=== PATIENT | female | born 1980 | race Caucasian/White ===

== ENCOUNTER 2023-05-10 13:05 | Emergency (ER) | payer MEDICARE, MEDICAID, SELFPAY ==
[2023-05-10 13:41] VITALS: BP 144/72; PULSE 83; RESP 20; TEMP 37.1; O2SAT 98; BMI 33.6
[2023-05-10] MEDS: BACITRACIN OINTMENT 28.4 GM TUBE 1 APPLIC TOPICAL (14:14)
[2023-05-10] MEDS: ADACEL DIPH,PERTUSS(ACELL),TET VAC/PF 0.5 ML ADULT SYRINGE IM (14:15)
--- NOTE | 2023-05-10 14:21 | ED.ANIMALBI1 ---
HPI - Animal Bite General Chief Complaint: Animal Bite Stated Complaint: BIT BY DOG IN 2 PLACES Time Seen by Provider: 05/10/23 13:50 Source: patient Source comment: bit by dog twice- mom with patient Mode of arrival: walk-in Limitations: no limitations History of Present Illness HPI narrative: patient is a 42-year-old female presents the emergency department accompanied by her mother for the evaluation of dog bites to the left knee and right buttock. She states a family friend's Husky mix bit her. she was wearing pants to both areas when the dog bit her. Unknown last tetanus. Bleeding well controlled at this time. No other associated injuries. Related Data Previous Rx's Medication Instructions Recorded ciprofloxacin HCl 500 mg tablet 500 mg PO BID #20 tabs 05/10/23 (Cipro) clindamycin HCl 150 mg capsule 300 mg PO Q6H 10 days #80 caps 05/10/23 ketorolac 10 mg tablet 10 mg PO TID PRN pain #10 tabs 05/10/23 mupirocin 2 % topical ointment 1 applic topical BID #15 grams 05/10/23 ondansetron 4 mg disintegrating 4 mg PO Q6H PRN nausea and 05/10/23 tablet vomiting #12 tabs Allergies Allergy/AdvReac Type Severity Reaction Status Date / Time divalproex sodium Allergy Severe Chest Pain Verified 05/10/23 13:52 [From Depakote] lamotrigine [From Lamictal] Allergy Severe Chest Pain Verified 05/10/23 13:52 Opioids - Morphine Analogues Allergy Severe Chest Pain Verified 05/10/23 13:52 oxcarbazepine Allergy Severe Chest Pain Verified 05/10/23 13:52 [From Trileptal] Penicillins Allergy Mild Hives Verified 05/10/23 13:52 Review of Systems ROS Constitutional Denies: fever or chills Cardiovascular Denies: chest pain Respiratory Denies: shortness of breath Gastrointestinal Denies: nausea or vomiting Integumentary/Breast Denies: rash Neurological Denies: headache Endocrine Denies: excessive urination Hematologic/Lymphatic Denies: easy bruising Allergic/Immunologic Denies: hives PFSH PFSH Social History Smoking status: Former smoker Exam Narrative Exam Narrative: Gen.: Awake, alert, in no distress Head: Normocephalic, atraumatic ENT: Moist mucous membranes Respiratory: No respiratory distress Extremities: Moves extremities equally Psych: Normal mood and affect Neuro: No focal neuro deficit Skin: Warm, dry; multiple superficial abrasions to the right buttock consistent with a dog bite and a 5 cm long slightly deeper abrasion to the medial right buttock, no subcutaneous tissue exposure and the laceration does not pull apart. posterior left knee with multiple superficial abrasions and a 1.5 cm slightly deeper laceration that is able to be pulled apart. No deep subcutaneous tissue exposure. No active bleeding. Constitutional Vital Signs, click to edit/add: Last Vital Signs Temp 98.8 F 05/10/23 13:41 Pulse 83 05/10/23 13:41 Resp 20 05/10/23 13:41 BP 144/72 H 05/10/23 13:41 Pulse Ox 98 05/10/23 13:41 O2 Del Method Room Air 05/10/23 13:41 Course Vital Signs Vital signs: Vital Signs Temperature 98.8 F 05/10/23 13:41 Pulse Rate 83 05/10/23 13:41 Respiratory Rate 20 05/10/23 13:41 Blood Pressure 144/72 H 05/10/23 13:41 Pulse Oximetry 98 05/10/23 13:41 Oxygen Delivery Method Room Air 05/10/23 13:41 Temperature 98.8 F 05/10/23 13:41 Pulse Rate 83 05/10/23 13:41 Respiratory Rate 20 05/10/23 13:41 Blood Pressure 144/72 H 05/10/23 13:41 Pulse Oximetry 98 05/10/23 13:41 Oxygen Delivery Method Room Air 05/10/23 13:41 MDM - Animal Bite MDM Narrative Medical decision making narrative: abrasions to the right buttock were cleansed and dressed with bacitracin. No indication for suture repair to the right buttock. The longer laceration to the left posterior knee was repaired with two sutures, please see procedure note for details. Patient was placed on Cipro and clindamycin as she is ALLERGIC to penicillin. Toradol given for pain if she states she cannot take any opioids. Tetanus is updated in the Emergency Room. She was given additional prescription for topical antibiotic ointment if she runs out of the bacitracin tube. Return to the Emergency Room if symptoms change or worsen. Sutures removed with PCP in 7-10 days. Discussed rabies recommendations for dog bites, patient and her mother believes that the dog is fully immunized and declined rabies injections, patient and her mother were made aware that it is not routinely recommended to vaccinate for rabies exposure for dog bite, they're in agreement with this treatment plan. Laceration repair: Done under sterile conditions. The use of Shur-Clens prep the area. Local injection with lidocaine 1% was used, approximately 3 cc. The wound was irrigated copiously with normal saline. The wound was explored there was no evidence of foreign material. The laceration was approximated with 4-0 nylon. 2 simple interrupted sutures were placed. Patient tolerated the procedure well. The patient was neurovascularly intact post. the patient had bacitracin applied to the laceration and a dry sterile dressing was place. The patient will need to follow-up in the next 7-10 days for removal Medical Records Attestation: I reviewed the patient's medical records. Discharge Plan Discharge Chief Complaint: Animal Bite Clinical Impression: Bite by animal, Dog bite Patient Disposition: Home, Self-Care Time of Disposition Decision: 14:51 Condition: Good Prescriptions / Home Meds: New clindamycin HCl 150 mg capsule 300 mg PO Q6H 10 Days Qty: 80 0RF ciprofloxacin HCl [Cipro] 500 mg tablet 500 mg PO BID Qty: 20 0RF ketorolac 10 mg tablet 10 mg PO TID PRN (Reason: pain) Qty: 10 0RF ondansetron 4 mg tablet,disintegrating 4 mg PO Q6H PRN (Reason: nausea and vomiting) Qty: 12 0RF mupirocin 2 % ointment 1 applic topical BID Qty: 15 0RF Instructions: Animal Bite (ED) Additional Instructions: Sutures removed in 7-10 days with PCP Stand Alone Forms: Portal Instructions Referrals: George Cortez MD [Primary Care Provider] - 1 week
--- NOTE | 2023-05-10 14:27 | PC.NURSE ---
Bog bite to right lower buttock and to back of left knee. Pt states it only got her the 2 times. Pt states the dog as far as they know is UTD on vaccines and did not appear sick.
== END 2023-05-10 15:05 | disposition home or self-care (01) ==
PROVIDERS: Emergency Provider Emergency Medicine; PCP Family Medicine
DX: S81.052A Open bite, left knee, initial encounter (principal); S30.870A Other superficial bite of lower back and pelvis, initial encounter; W54.0XXA Bitten by dog, initial encounter; Z87.891 Personal history of nicotine dependence
CPT/HCPCS: 12001; 90471; 90715; 99283

== ENCOUNTER 2023-07-10 09:04 | Outpatient (OUT) | payer MEDICARE, MEDICAID, SELFPAY ==
[2023-07-10 11:32] LABS: Creatinine Urine Random 62.92 mg/dL (20.00-300.00); Microalbumin Urine Random 20.2 mg/dL (<=30.0)
[2023-07-10 11:59] LABS: Albumin Level 3.7 g/dL (3.4-5.0); Anion Gap 9.7; Calcium 8.9 mg/dL (8.5-10.1); Carbon Dioxide 29.4 mmol/L (21.0-32.0); Chloride 97 mmol/L (98-107); Chol HDL Ratio 5.7; Cholesterol 159 mg/dL (<=200); Estimated GFR (African America >60 (>=60); Estimated GFR (Non-African Ame >60 (>=60); Free T3 2.43 pg/mL (2.18-3.98); Glucose 277 mg/dL (74-106); HDL Cholesterol 28 mg/dL (40-60); Phosphorus 3.2 mg/dL (2.6-4.7); Potassium 4.1 mmol/L (3.5-5.1); Sodium 132 mmol/L (136-145); Thyroid Stimulating Hormone 3.438 uIU/mL (0.358-3.740); Triglycerides 226 mg/dL (<=150); VLDL CHOLESTEROL 45.2 mg/dL
[2023-07-10 12:57] LABS: Free T4 1.09 ng/dL (0.76-1.46)
[2023-07-11 11:10] LABS: C-Peptide, Serum <0.1 ng/mL (1.1-4.4)
[2023-07-11 14:09] LABS: ACTH, Plasma 31.7 pg/mL (7.2-63.3)
== END 2023-07-10 09:05 | disposition home or self-care (01) ==
PROVIDERS: PCP Family Medicine; Visit Provider Internal Medicine
DX: E10.39 Type 1 diabetes mellitus with other diabetic ophthalmic complication (principal); E55.9 Vitamin D deficiency, unspecified; R80.9 Proteinuria, unspecified; Z79.4 Long term (current) use of insulin; E03.9 Hypothyroidism, unspecified
CPT/HCPCS: 36415; 80061; 80069; 82024; 82043; 82306; 82533; 82570; 84439; 84443; 84481; 84681

== ENCOUNTER 2023-11-02 09:38 | Outpatient (OUT) | payer MEDICARE, MEDICAID, SELFPAY ==
--- NOTE | 2023-11-02 09:53 | XR_ITS ---
The [address] [address] Patient Name: YANICK JEFFREY MRN: [id number] date: 1980 Sex: F Assigned Patient Location: [facility] Current Patient Location: Accession/Order Number: [id number] Exam Date: 11/02/2023 10:04 Report Date: 11/03/2023 07:45 At the request of: LORENZO CARLSON Procedure: XR foot RT min 3V PROCEDURE: XR foot RT min 3V HISTORY: Foot pain M79.673 following injury COMPARISON: None. FINDINGS: BONES:Oblique, nondisplaced fracture through the second proximal phalanx extending from medial corner of distal metaphysis 2 lateral margin of mid diaphysis. No appreciable intra-articular extension. SOFT TISSUES:Mild soft tissue swelling of second toe. EFFUSION:None visible. OTHER: Negative. XR/XR foot RT min 3V IMPRESSION: 1. Acute, nondisplaced fracture of second proximal phalanx of right foot. Electronically authenticated by: FLORA DERAS Date: 11/03/2023 07:45
--- OUTSIDE RECORDS SUMMARY | 2023-11-02 09:54 | XMS_ITS | CCD ---
Author Name Unknown Address [address] [facility] [address] [place] [address] Organization [facility] Care Team Providers Care Padded Products Finisher Name Role Phone TONYA CENTENO Attending Unavailable TONYA CENTENO Admitting Unavailable UNKNOWN, PHYSICIAN Referring Unavailable UNKNOWN, PHYSICIAN Primary Care Unavailable HOY ., DR VENTURA Admitting Unavailable HOY ., DR VENTURA Attending Unavailable HOY ., DR VENTURA Consulting Unavailable HOY ., DR VENTURA Primary Care Unavailable HOY ., DR VENTURA Admitting Unavailable HOY ., DR VENTURA Attending Unavailable HOY ., DR VENTURA Consulting Unavailable HOY ., DR VENTURA Primary Care Unavailable HOY ., DR VENTURA Admitting Unavailable HOY ., DR VENTURA Primary Care Unavailable HOY ., DR VENTURA Attending Unavailable HOY ., DR VENTURA Consulting [facility]available [facility] DR FLORA Davidson Consulting Unavailable HOY ., DR VENTURA Admitting Unavailable HOY ., DR VENTURA Primary Care Unavailable HOY ., DR VENTURA Attending Unavailable HOY ., DR VENTURA Consulting Unavailable [place], DR EDNA Carlson Consulting Unavailable HOY ., DR VENTURA Primary Care Unavailable HOY ., DR VENTURA Attending Unavailable HOY ., DR VENTURA Admitting Unavailable HOY ., DR VENTURA Consulting Unavailable HOY ., DR VENTURA Primary Care Unavailable HOY ., DR VENTURA Attending Unavailable HOY ., DR VENTURA Admitting Unavailable HOY ., DR VENTURA Consulting Unavailable HOY ., DR VENTURA Primary Care Unavailable CARLOS, AHMAD Admitting Unavailable CARLOS, AHMAD Attending Unavailable HOY ., DR VENTURA Consulting Unavailable CARLOS, AHVINICIUS Consulting Unavailable HOY ., DR VENTURA Primary Care Unavailable CARLOS, AHMAD Admitting Unavailable CARLOS, AHMAD Attending Unavailable CRALOS, AHMAD Consulting Unavailable HOY ., DR VENTURA Primary Care Unavailable ALDO ., DR VENTURA Attending Unavailable ALDO ., DR VENTURA Admitting Unavailable ALDO ., DR VENTURA Consulting Unavailable [place], DR EDNA Carlson Consulting Unavailable Castillo Choudhary Attending Unavailab Castillo Matt Admitting Unavailab Lorenzo Benito Primary Care Unavailable Allergies Allergy Classification Reported Allergen(s) Allergy Type Date of Onset Reaction(s) Facility (1 source) Acetaminophen / HYDROcodone Drug Allergy 07-14-2013 [facility] (1 source) Acetaminophen / HYDROcodone Drug Allergy 11-02-2015 [facility] (1 source) Adhesive agent Drug allergy (disorder) 07-14-2013 [facility] (1 source) Amino Acids Drug Allergy 10-26-2015 [facility] (1 source) lamoTRIgine Drug Allergy 07-14-2013 [facility] (1 source) Morphine Drug Allergy 07-14-2013 [facility] (1 source) OXcarbazepine Drug Allergy 07-14-2013 [facility] (1 source) Penicillins Drug allergy (disorder) 07-14-2013 [facility] (1 source) Valproate Drug Allergy 07-14-2013 [facility] Problems Active Problems Problem Classification Problem Date Documented Da te Episodic/Chronic Congestive heart failure; nonhypertensive (1 source) Unspecified diastolic (congestive) heart failure; Translations: [UNSPECIFIED DIASTOLIC HEART FAILURE] Onset: 10-09-2022 Chronic Diabetes mellitus with complications (5 sources) 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; Translations: [TYP 1 DM W/DIABETIC OPHTH COMP] Onset: 03-30-2022 Chronic Diseases of mouth; excluding dental (4 sources) Mucocele of salivary gland; Translations: [MUCOCELE OF SALIVARY GLAND] Onset: 01-03-2023 Episodic Essential hypertension (5 sources) Essential (primary) hypertension; Translations: [ESSENTIAL PRIMARY HYPERTENSION] Onset: 04-03-2022 Chronic Hypertension with complications and secondary hypertension (5 sources) Hypertensive heart disease with heart failure; Translations: [HTN HEART DISEASE W/HEART FAIL] Onset: 03-20-2022 Chronic Nutritional deficiencies (1 source) Vitamin D deficiency, unspecified; Translations: [VITAMIN D DEFICIENCY UNSPECIFIED] Onset: 10-09-2022 Chronic Spondylosis; intervertebral disc disorders; other back problems (1 source) Radiculopathy, cervical region; Translations: [RADICULOPATHY CERVICAL REGION] Onset: 01-07-2023 Episodic Past or Other Problems Problem Classification Problem Date Documented Da te Episodic/Chronic Deficiency and other anemia (1 source) Anemia, unspecified; Translations: [ANEMIA UNSPECIFIED] Onset: 03-20-2022 Episodic Other aftercare (1 source) 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; Translations: [RESIDENTIAL CURRENT USE OF INSULIN] Onset: 10-09-2022 Episodic Other lower respiratory disease (5 sources) Other forms of dyspnea; Translations: [OTHER FORMS OF DYSPNEA] Onset: 04-03-2022 Episodic Residual codes; unclassified (4 sources) Edema, unspecified; Translations: [EDEMA UNSPECIFIED] Onset: 03-30-2022 Episodic Results Test Name Value Interpretation Reference Range Facility CREATININEon 01-22-2023 Creatinine [Mass/Vol] 0.98 mg/dL Normal 0.55-1.02 [facility] Comment on above: Performed By: #### C NILSON #### [facility] [address] [place] [address] Dr. Keeley Hoskins EGFR-AF SRI LANKAN >60 Normal >=60 [facility] Comment on above: Performed By: #### C NILSON #### [facility] [address] [place] [address] Dr. Keeley Hoskins EGFR-NON AF SRI LANKAN >60 Normal >=60 [facility] Comment on above: Performed By: #### C NILSON #### [facility] [address] [place] [address] NECK ST W CONon [address] W CON EXAMINATION: CT NECK ST W CON HISTORY: Mass of neck , left neck mass COMPARISON: No relevant comparison available. TECHNIQUE: Axial, Coronal, and Sagittal CT images created with IV contrast. Dose reduction techniques were achieved by using automated exposure control and/or adjustment of mA and/or kV according to patient size and/or use of iterative reconstruction technique. FINDINGS: NASOPHARYNX: No asymmetry of the fossae of Rosenmuller and torus tubarius. ORAL CAVITY: No visible mass. OROPHARYNX: No asymmetry of the facial and lingual tonsils. HYPOPHARYNX: No mass or other visible lesion. LARYNX: No mass or asymmetry of the vocal cords. SINUSES: No significant fluid or mucosal thickening. NECK GLADS: No visible abnormality of the parotid, submandibular, and thyroid glands. LYMPH NODES: No pathological-appearin g or enlarged lymph nodes. Scattered normal-sized lymph nodes VASCULATURE: No suspicious abnormality. BONES: No significant osseous lesions. Moderate degenerative spondylosis C5-C6 OTHER: No additional imaging findings. IMPRESSION: No focal left neck mass Electronically authenticated by: EDNA GOMEZ Date: 2023-01-22 11:08 Normal [facility] MRI CSPINE WO CONon 01-23-20 MRI CSPINE WO CON EXAMINATION: MRI CSPINE WO CON HISTORY: Degeneration of cervical intervertebral disc , chronic neck pain COMPARISON: No relevant comparison available. TECHNIQUE: A variety of imaging planes and parameters were utilized for visualization of suspected pathology. FINDINGS: CRANIOCERVICAL AREA: Normal foramen magnum with no Chiari malformation. PARASPINAL AREA: Normal with no visible mass. BONES: Normal alignment with no acute fracture or spondylolisthesis. No bone edema. CORD: Normal caliber, contour, and signal intensity. CERVICAL DISC LEVELS: C2-C3: No significant disc/facet abnormality, spinal stenosis, or foraminal stenosis. C3-C4: No significant disc/facet abnormality, spinal stenosis, or foraminal stenosis. C4-C5: No significant disc/facet abnormality, spinal stenosis, or foraminal stenosis. C5-C6: Disc desiccation. Mild posterior spondylosis. Right base disc protrusion with left foraminal disc herniation of the protrusion type extending posteriorly up to 4.5 mm best seen on sagittal image 5, axial image 20. Moderate left foraminal stenosis C6-C7: No significant disc/facet abnormality, spinal stenosis, or foraminal stenosis. C7-T1:. No significant disc/facet abnormality, spinal stenosis, or foraminal stenosis. IMPRESSION: Moderate degenerative changes at C5-C6 with left foraminal disc herniation resulting in moderate left foraminal stenosis Electronically authenticated by: EDNA GOMEZ Date: 2023-01-22 11:04 Normal [facility] CT FACIAL BONES WO CONon CT FACIAL BONES WO CON EXAMINATION: CT FACIAL BONES WO CON HISTORY: Mucocele of salivary gland ; left jaw pain COMPARISON: No relevant comparison available. TECHNIQUE: Axial, Coronal, and Sagittal CT images created without IV contrast. Dose reduction techniques were achieved by using automated exposure control and/or adjustment of mA and/or kV according to patient size and/or use of iterative reconstruction technique. FINDINGS: FACIAL BONES: No bony lesion or fracture. SINUSES: No visible mass, significant fluid or mucosal thickening. NASAL FOSSA: No mass, fracture, or significant septal deviation. SKULL BASE: No mass or bone destruction. ORBITS: No visible mass, hematoma, edema or fracture. SALIVARY GLANDS: No mass. Unremarkable parotid and submandibular glands. OTHER: No lymphadenopathy. Unremarkable nasopharynx, oropharynx, and oral cavity. IMPRESSION: 1. No appreciable abnormality. 2. If there remains concern for salivary gland abnormality consider CT neck soft tissues with IV contrast. Electronically authenticated by: FLORA DERAS Date: 2023-01-04 07:25 Normal [facility] XR CSPINE MIN 4 VIEWSon 12-10 XR CSPINE MIN 4 VIEWS EXAMINATION: XR CSPINE MIN 4 VIEWS HISTORY: Cervical radiculopathy COMPARISON: No relevant comparison available. FINDINGS: BONES: Straightening of the normal lordotic curvature. No fracture, spondylolisthesis, or bone lesion. Uncovertebral joint spurring resulting in bone encroachment on the left C5-6 neural foramen. DISC SPACES: Mild narrowing C5-6. PARASPINOUS: Negative. No paraspinous abnormality is seen. OTHER: Negative. IMPRESSION: 1. Mild degenerative changes likely causing central canal and foramen narrowing predominantly at C5-6. Consider MRI cervical spine for further evaluation. Electronically authenticated by: FLORA DERAS Date: 2023-01-04 07:12 Normal [facility] C-PEPTIDE, SERUMon C-Peptide, Serum <0.1 Critically low 1.1-4.4 [facility] Comment on above: Result Comment: C-Pe ptide reference interval is for fasting patients. Performed By: #### C PEPT #### [facility] [address] [place] [address] Dr. Keeley Hoskins BNPon 10-06-2022 Natriuretic peptide B (Bld) [Mass/Vol] 20.0 pg/mL Normal <=450.0 [facility] Comment on above: Performed By: #### R ENAL, LIPID #### [facility] [address] [place], [place] [address] Dr. Keeley Hoskins LIPID PROFILEon 10-06-2022 CHOL-HDL RATIO NORM SEE BELOW Normal [facility] Comment on above: Result Comment: 3.3 - 4.4 LOW RISK 4.4 - 7.1 AVERAGE RISK 7.1 - 11.0 MODERATE RISK >11.0 HIGH RISK Performed By: #### R ENAL, LIPID #### [facility] [address] [place], [place] [address] Dr. Keeley Hoskins Cholesterol [Mass/Vol] 156 mg/dL Normal <=200 [facility] Comment on above: Performed By: #### R ENAL, LIPID #### [facility] [address] [place] [address] [address] Keeley Hoskins Cholesterol in HDL [Mass/Vol] 32 mg/dL Critically low 40-60 [facility] Comment on above: Performed By: #### R ENAL, LIPID #### [facility] [address] [place] [address] [address] Keeley Hoskins Cholesterol in LDL [Mass/Vol] 71.8 mg/dL Normal [facility] Comment on above: Performed By: #### R ENAL, LIPID #### [facility] [address] [place], [place] [address] Dr. Keeley Hoskins Cholesterol.total/C holesterol in HDL [Mass ratio] 4.9 {ratio} Normal [facility] Comment on above: Performed By: #### R ENAL, LIPID #### [facility] [address] [place], [place] [address] Dr. Keeley Hoskins HDL NORMAL > or = 60 mg/dl - LO W CARDIOVASCULAR RISK <40 mg/dl - HIGH CARDIOVASCULAR RISK Normal [facility] Comment on above: Performed By: #### R ENAL, LIPID #### [facility] [address] [place] [address] [address] Keeley Hoskins LDL CALC NORMAL SEE BELOW Normal [facility] Comment on above: Result Comment: <100 mg/dl OPTIMAL 100 - 129 mg/dl NEAR OR ABOVE OPTIMAL 130 - 159 mg/dl BORDERLINE HIGH 160 - 189 mg/dl HIGH >190 mg/dl VERY HIGH Performed By: #### R ENLISSY, LIPID #### [facility] [address] [place] [address] Dr. Keeley Hoskins Triglyceride [Mass/Vol] 261 mg/dL Critically high <=150 [facility] Comment on above: Performed By: #### R ENLISSY, LIPID #### [facility] [address] [place] [address] Dr. Keeley Hoskins VLDL CALC 52.2 mg/dL Normal [facility] Comment on above: Performed By: #### R ENLISSY, LIPID #### [facility] [address] [place] [address] Dr. Keeley Hoskins MICROALB CREAT RATIO RANDOMo n 10-06-2022 mALB 4.2 mg/L Normal <=30.0 [facility] Comment on above: Performed By: #### M CRR #### [facility] [address] [place] [address] Dr. Keeley Hoskins URINE CREAT <13.00 Critically low 20.00-300.00 [facility] Comment on above: Performed By: #### M CRR #### [facility] [address] [place] [address] Dr. Keeley Hoskins RENAL FUNCTION PANELon 10-06 Albumin [Mass/Vol] 4.0 g/dL Normal 3.4-5.0 [facility] Comment on above: Performed By: #### R ENLISSY, LIPID #### [facility] [address] [place] [address] Dr. Keeley Hoskins Calcium [Mass/Vol] 9.3 mg/dL Normal 8.5-10.1 [facility] Comment on above: Performed By: #### R ENLISSY, LIPID #### [facility] [address] [place] [address] Dr. Keeley Hoskins Chloride [Moles/Vol] 101 mmol/L Normal 98-107 [facility] Comment on above: Performed By: #### R ENAL, LIPID #### [facility] [address] [address] [address] Keelye Hoskins CO2 [Moles/Vol] 28.9 mmol/L Normal 21.0-32.0 [facility] Comment on above: Performed By: #### R ENAL, LIPID #### [facility] [address] [address] [address] Keeley Hoskins Creatinine [Mass/Vol] 0.81 mg/dL Normal 0.55-1.02 [facility] Comment on above: Performed By: #### R ENAL, LIPID #### [facility] [address] [place] [address] [address] Keeley Hoskins EGFR-AF SRI LANKAN >60 Normal >=60 [facility] Comment on above: Performed By: #### R ENAL, LIPID #### [facility] [address] [place] [address] [address] Keeley Hoskins EGFR-NON AF SRI LANKAN >60 Normal >=60 [facility] Comment on above: Performed By: #### R ENAL, LIPID #### [facility] [address] [place] [address] [address] Keeley Hoskins Glucose [Mass/Vol] 123 mg/dL Critically high 74-106 [facility] Comment on above: Performed By: #### R ENAL, LIPID #### [facility] [address] [address] [address] Keeley Hoskins Phosphate [Mass/Vol] 3.9 mg/dL Normal 2.6-4.7 [facility] Comment on above: Performed By: #### R ENAL, LIPID #### [facility] [address] [address] [address] Keeley Hoskins Potassium [Moles/Vol] 4.4 mmol/L Normal 3.5-5.1 [facility] Comment on above: Performed By: #### R ENAL, LIPID #### [facility] [address] [address] [address] Keeley Hoskins Sodium [Moles/Vol] 140 mmol/L Normal 136-145 [facility] Comment on above: Performed By: #### R ENAL, LIPID #### [facility] [address] [place] [address] [address] Keeley Hoskins Urea nitrogen [Mass/Vol] 12.0 mg/dL Normal 7.0-18.0 [facility] Comment on above: Performed By: #### R ENLISSY, LIPID #### [facility] [address] [place] [address] Dr. Keeley Hoskins VITAMIN D 25 OHon 10-06-2022 VIT D 25-OH 37.8 ng/mL Normal [facility] Comment on above: Performed By: #### R ENLISSY, LIPID #### [facility] [address] [address] [address] Keeley Hoskins VIT D RANGES SEE BELOW Normal [facility] Comment on above: Result Comment: <20 ng/mL Vit D deficient 20 - <30 ng/mL Vit D insufficient 30 - 100 ng/mL Vit D sufficient >100 ng/mL Potential Toxicity Performed By: #### R SEGUN, LIPID #### [facility] [address] [place] [address] Dr. Keeley Hoskins NM STRESS/REST MULTIon 04-17 NM STRESS/REST MULTI Patient: SCAR JEFFREY Exam Date: 04/17/2022 : 1980 Gender:F Ordering : DR LORENZO CORTEZ . Admission #: [id number] Family : Order #: [id number] CLICK HERE TO VIEW EXAM RADIOLOGY REPORT PROCEDURE: RADIONUCLIDE IMAGING STRESS/REST MULTI COMPARISON: None. INDICATIONS: Dyspnea on exertion TECHNIQUE: Exam Description: Stress/Rest one day protocol gated SPECT Rest Imagin.4 mCi Tc-99m Cardiolite IV on 04/17/2022 Stress Imaging 33.0 mCi Tc-99m Cardiolite IV on 04/17/2022 Exercise Protocol: Mick Heart Rate (bpm): Rest: 92 Max: 150 PMHR: 85 Blood Pressure: Rest: 174/84 Max: 214/98 Exercise Time: Minutes: 6 Seconds: 02 Stage Reached: Stage: 3 Mets 7.0 Symptoms: Rest and peak stress ECG findings were normal and the exercise portion of the study was abnormal per attending physician Dr. Wooten due to blood pressure. For more details please see separate cardiac stress test report. FINDINGS: QUALITY OF STUDY: PERFUSION DEFECT: LOCATION: Basal anterior. Mid-anterior. Apical inferior. SIZE: Medium (3-4 segments). SEVERITY: Moderate. TYPE: WALL MOTION: Normal. LV SIZE: Normal. 101 mL. TID / TCD: None; 1.1 LVEF: Normal. Calculated EF 59%. SUMMARY: Myocardial perfusion imaging study has ABNORMAL findings. CONCLUSION: 1. Perfusion abnormality in the anterior wall possibly breast attenuation artifact 2. No reversible ischemia 3. Normal exercise test Dictated by: Edna Gomez MD on 04/18/2022 at 11:42 Approved by: Edna Gomez MD on 04/18/2022 at 11:44 Normal [facility] ECHOCARDIO M/2D COMPLETEon 0 03-30-2022 ECHOCARDIO M/2D COMPLETE Patient: SCAR JEFFREY Exam Date: 03/30/2022 : 1980 Gender:F Ordering : DR LORENZO CORTEZ . Admission #: [id number] Family : Order #: [id number] CLICK HERE TO VIEW EXAM ECHOCARDIOGRAM REPORT PROCEDURE: CARDIO PULMONARY ECHOCARDIO M/2D COMP INDICATIONS: Edema, hypertension, diabetes COMPARISON: None. DESCRIPTION: COMPLETE ECHOCARDIOGRAM Real-time transthoracic echocardiography with 2D, M-mode, spectral and color flow Doppler performed. QUALITY: Technical quality was adequate. 65 237# BP 144/72 HR 93 LEFT VENTRICLE: Normal chamber size. Mild concentric left ventricular hypertrophy. LV EF: Normal left ventricular ejection fraction, (>55%). DIASTOLIC: Normal diastolic function. ATRIAL SEPTUM: Visually appears intact. LEFT ATRIUM: Normal chamber size. RIGHT ATRIUM: Normal chamber size. RIGHT VENTRICLE: Normal chamber size. Normal right ventricular systolic function. TRICUSPID VALVE: Normal mobility and thickness. No stenosis with trivial regurgitation. Unable to assess right-sided pressures due to lack of measurable tricuspid regurgitation. MITRAL VALVE: Mildly thickened with normal mobility. No evidence of mitral valve stenosis. Mild mitral annular calcification. No mitral regurgitation. AORTIC VALVE: Normal trileaflet appearance. No visible sclerosis. Normal leaflet mobility. No evidence of aortic valve stenosis. No aortic regurgitation. AORTIC ROOT: Normal diameter and appearance. PULMONIC VALVE: Not well visualized. No stenosis. No regurgitation. PERICARDIUM: No evidence of pericardial effusion. IVC: Collapses with inspirations. IVC is normal in size. CONCLUSION: Global left ventricular systolic function is normal; visually estimated ejection fraction is 55 to 60%. Normal diastolic function. Mild left ventricular hypertrophy. The right ventricle is normal in size and systolic function. No significant valvular abnormalities. Dictated by: Jackie Wooten M.D. on 03/30/2022 at 13:48 Approved by: Jackie Wooten M.D. on 03/30/2022 at 13:50 Normal [facility] LIPID PROFILEon 03-30-2022 CHOL-HDL RATIO NORM SEE BELOW Normal [facility] Comment on above: Result Comment: 3.3 - 4.4 LOW RISK 4.4 - 7.1 AVERAGE RISK 7.1 - 11.0 MODERATE RISK >11.0 HIGH RISK Performed By: #### R SEGUN, LIPID #### [facility] [address] [place] [address] Dr. Keeley Hoskins Cholesterol [Mass/Vol] 140 mg/dL Normal <=200 [facility] Comment on above: Performed By: #### R SEGUN, LIPID #### [facility] [address] [place] [address] [address] Keeley Hoskins Cholesterol in HDL [Mass/Vol] 30 mg/dL Critically low 40-60 [facility] Comment on above: Performed By: #### R ENLISSY, LIPID #### [facility] [address] [place] [address] [address] Keeley Hoskins Cholesterol in LDL [Mass/Vol] 69.2 mg/dL Normal [facility] Comment on above: Performed By: #### R ENLISSY, LIPID #### [facility] [address] [place] [address] [address] Keeley Hoskins Cholesterol.total/C holesterol in HDL [Mass ratio] 4.7 {ratio} Normal [facility] Comment on above: Performed By: #### R ENLISSY, LIPID #### [facility] [address] [place] [address] [address] Keeley Hoskins HDL NORMAL > or = 60 mg/dl - LO W CARDIOVASCULAR RISK <40 mg/dl - HIGH CARDIOVASCULAR RISK Normal [facility] Comment on above: Performed By: #### R ENLISSY, LIPID #### [facility] [address] [place] [address] [address] Keeley Hoskins LDL CALC NORMAL SEE BELOW Normal [facility] Comment on above: Result Comment: <100 mg/dl OPTIMAL 100 - 129 mg/dl NEAR OR ABOVE OPTIMAL 130 - 159 mg/dl BORDERLINE HIGH 160 - 189 mg/dl HIGH >190 mg/dl VERY HIGH Performed By: #### R ENAL, LIPID #### [facility] [address] [place] [address] [address] Keeley Hoskins Triglyceride [Mass/Vol] 204 mg/dL Critically high <=150 [facility] Comment on above: Performed By: #### R ENAL, LIPID #### [facility] [address] [place] [address] [address] Keeley Hoskins VLDL CALC 40.8 mg/dL Normal [facility] Comment on above: Performed By: #### R ENAL, LIPID #### [facility] [address] [place] [address] Dr. Keeley Hoskins MICROALB CREAT RATIO RANDOMo n 03-30-2022 mALB 8.3 mg/L Normal <=30.0 [facility] Comment on above: Performed By: #### M CRR #### [facility] [address] [address] [address] Keeley Hoskins MALB CR RATIO 466.0 mg/g Critically high 0.0-29.9 [facility] Comment on above: Performed By: #### M CRR #### [facility] [address] [place] [address] Dr. Keeley Hoskins MALB CR RATIO RANGE SEE BELOW Normal [facility] Comment on above: Result Comment: NO M ICROALBUMINURIA 0-29 MG/G CLINICAL MICROALBUMINURIA 30-300 MG/G MACROALBUMINURIA >300 MG/G Performed By: #### M CRR #### [facility] [address] [place] [address] Dr. Keeley Hoskins URINE CREAT 17.81 mg/dL Critically low 20.00-300.00 [facility] Comment on above: Performed By: #### M CRR #### [facility] [address] [place] [address] Dr. Keeley Hoskins RENAL FUNCTION PANELon 03-30 Albumin [Mass/Vol] 4.2 g/dL Normal 3.4-5.0 [facility] Comment on above: Performed By: #### R ENAL, LIPID #### [facility] [address] [place] [address] [address] Keeley Hoskins Calcium [Mass/Vol] 9.2 mg/dL Normal 8.5-10.1 [facility] Comment on above: Performed By: #### R ENAL, LIPID #### [facility] [address] [place] [address] [address] Keeley Hoskins Chloride [Moles/Vol] 98 mmol/L Normal 98-107 [facility] Comment on above: Performed By: #### R ENAL, LIPID #### [facility] [address] [place] [address] Dr. Keeley Hoskins CO2 [Moles/Vol] 28.6 mmol/L Normal 21.0-32.0 [facility] Comment on above: Performed By: #### R ENAL, LIPID #### [facility] [address] [place] [address] Dr. Keeley Hoskins Creatinine [Mass/Vol] 1.17 mg/dL Critically high 0.55-1.02 [facility] Comment on above: Performed By: #### R ENAL, LIPID #### [facility] [address] [place] [address] Dr. Keeley Hoskins EGFR-AF SRI LANKAN >60 Normal >=60 The [facility] Comment on above: Performed By: #### R ENAL, LIPID #### [facility] [address] [place] [address] Dr. Keeley Hoskins EGFR-NON AF SRI LANKAN 50 mL/min/1.73m2 Critically low >=60 [facility] Comment on above: Performed By: #### R ENAL, LIPID #### [facility] [address] [place] [address] Dr. Keeley Hoskins Glucose [Mass/Vol] 212 mg/dL Critically high 74-106 [facility] Comment on above: Performed By: #### R ENAL, LIPID #### [facility] [address] [place] [address] Dr. Keeley Hoskins Phosphate [Mass/Vol] 4.0 mg/dL Normal 2.6-4.7 [facility] Comment on above: Performed By: #### R ENAL, LIPID #### [facility] [address] [place] [address] Dr. Keeley Hoskins Potassium [Moles/Vol] 4.1 mmol/L Normal 3.5-5.1 [facility] Comment on above: Performed By: #### R ENAL, LIPID #### [facility] [address] [place] [address] Dr. Keeley Hoskins Sodium [Moles/Vol] 136 mmol/L Normal 136-145 [facility] Comment on above: Performed By: #### R ENAL, LIPID #### [facility] [address] [place] [address] Dr. Keeley Hoskins Urea nitrogen [Mass/Vol] 16.0 mg/dL Normal 7.0-18.0 [facility] Comment on above: Performed By: #### R ENAL, LIPID #### [facility] [address] [place] [address] Dr. Keeley Hoskins VITAMIN D 25 OHon 03-30-2022 VIT D 25-OH 33.8 ng/mL Normal [facility] Comment on above: Performed By: #### V ITAD #### [facility] [address] [place] [address] Dr. Keeley Hoskins VIT D RANGES SEE BELOW Normal [facility] Comment on above: Result Comment: <20 ng/mL Vit D deficient 20 - <30 ng/mL Vit D insufficient 30 - 100 ng/mL Vit D sufficient >100 ng/mL Potential Toxicity Performed By: #### V ITAD #### [facility] [address] [place] [address] Dr. Keeley Hoskins BNPon 03-16-2022 Natriuretic peptide B (Bld) [Mass/Vol] 20.0 pg/mL Normal <=450.0 [facility] Comment on above: Performed By: #### T 7, TSH, CMP, BNP #### [facility] [address] [address] [address] Keeley Hoskins CBC AUTO DIFFon 03-16-2022 BASO # 0.1 103/ul Normal 0.0-0.1 [facility] Comment on above: Performed By: #### R ENAL, LIPID #### [facility] [address] [address] [address] Keeley Hoskins Basophils/100 WBC (Bld) 1.0 % Normal 0.2-2.0 [facility] Comment on above: Performed By: #### R ENAL, LIPID #### [facility] [address] [place] [address] Dr. Keeley Hoskins EO # 0.1 103/ul Normal 0.0-0.7 [facility] Comment on above: Performed By: #### R ENAL, LIPID #### [facility] [address] [place] [address] Dr. Keeley Hoskins Eosinophils/100 WBC (Bld) 1.8 % Normal 0.9-7.0 [facility] Comment on above: Performed By: #### R ENAL, LIPID #### [facility] [address] [place] [address] Dr. Keeley Hoskins Erythrocyte distribution width (RBC) [Ratio] 12.3 % Normal 11.0-15.0 [facility] Comment on above: Performed By: #### R ENAL, LIPID #### [facility] [address] [place] [address] Dr. Keeley Hoskins Hematocrit (Bld) [Volume fraction] 37.3 % Normal 36.0-48.0 [facility] Comment on above: Performed By: #### R ENAL, LIPID #### [facility] [address] [place] [address] Dr. Keeley Hoskins Hemoglobin (Bld) [Mass/Vol] 12.7 g/dL Normal 12.0-16.0 [facility] Comment on above: Performed By: #### R ENAL, LIPID #### [facility] [address] [place] [address] Dr. Keeley Hoskins IG # 0.04 10e3/ul Critically high 0.00-0.03 [facility] Comment on above: Performed By: #### R ENAL, LIPID #### [facility] [address] [place] [address] Dr. Keeley Hoskins IG % 0.6 % Critically high 0.0-0.5 [facility] Comment on above: Performed By: #### R ENAL, LIPID #### [facility] [address] [place] [address] Dr. Keeley Hoskins LYMPH # 1.8 103/ul Normal 1.2-3.8 [facility] Comment on above: Performed By: #### R ENAL, LIPID #### [facility] [address] [place] [address] Dr. Keeley Hoskins Lymphocytes/100 WBC (Bld) 26.4 % Normal 20.5-60.0 [facility] Comment on above: Performed By: #### R ENAL, LIPID #### [facility] [address] [place] [address] Dr. Keeley Hoskins MANUAL DIFF REQ NO Normal [facility] Comment on above: Performed By: #### R ENAL, LIPID #### [facility] [address] [place] [address] Dr. Keeley Hoskins MCH (RBC) [Entitic mass] 28.0 pg Normal 26.7-34.0 [facility] Comment on above: Performed By: #### R ENAL, LIPID #### [facility] [address] [place] [address] Dr. Keeley Hoskins MCHC (RBC) [Mass/Vol] 34.0 g/dL Normal 29.9-35.2 [facility] Comment on above: Performed By: #### R ENAL, LIPID #### [facility] [address] [place] [address] Dr. Keeley Hoskins MCV (RBC) [Entitic vol] 82.2 fL Normal 81.0-99.0 [facility] Comment on above: Performed By: #### R ENAL, LIPID #### [facility] [address] [place] [address] Dr. Keeley Hoskins MONO # 0.5 103/ul Normal 0.3-0.8 [facility] Comment on above: Performed By: #### R ENAL, LIPID #### [facility] [address] [place] [address] Dr. Keeley Hoskins Monocytes/100 WBC (Bld) 6.6 % Normal 1.7-12.0 [facility] Comment on above: Performed By: #### R ENAL, LIPID #### [facility] [address] [place] [address] Dr. Keeley Hoskins NEUT # 4.4 103/ul Normal 1.4-6.5 [facility] Comment on above: Performed By: #### R ENLISSY, LIPID #### [facility] [address] [place] [address] Dr. Keeley Hoskins Neutrophils/100 WBC (Bld) 63.6 % Normal 43.0-75.0 [facility] Comment on above: Performed By: #### R ENLISSY, LIPID #### [facility] [address] [place] [address] Dr. Keeley Hoskins Platelet mean volume (Bld) [Entitic vol] 10.4 fL Normal 9.5-13.5 [facility] Comment on above: Performed By: #### R ENLISSY, LIPID #### [facility] [address] [place] [address] Dr. Keeley Hoskins PLT 283 103/ul Normal 150-450 [facility] Comment on above: Performed By: #### R ENLISSY, LIPID #### [facility] [address] [place] [address] Dr. Keeley Hoskins RBC 4.54 106/ul Normal 4.20-5.40 [facility] Comment on above: Performed By: #### R ENLISSY, LIPID #### [facility] [address] [place] [address] Dr. Keeley Hoskins WBC 6.9 103/ul Normal 4.0-11.0 [facility] Comment on above: Performed By: #### R ENLISSY, LIPID #### [facility] [address] [place] [address] Dr. Keeley Hoskins FREE THYROXINE INDEX T7on FTI 2.91 Normal 1.30-4.50 [facility] Comment on above: Performed By: #### R ENAL, LIPID #### [facility] [address] [place] [address] Dr. Keeley Hoskins T3U 30.0 % Normal 30.0-39.0 [facility] Comment on above: Performed By: #### R ENAL, LIPID #### [facility] [address] [place] [address] Dr. Keeley Hoskins T4 [Mass/Vol] 9.70 ug/dL Normal 4.80-13.90 [facility] Comment on above: Performed By: #### R ENLISSY, LIPID #### [facility] [address] [place] [address] Dr. Keeley Hoskins IRONon 03-16-2022 Iron [Mass/Vol] 72.0 ug/dL Normal 50.0-170.0 [facility] Comment on above: Performed By: #### I MARY #### [facility] [address] [place] [address] Dr. Keeley Hoskins PROF 14(COMP METB)on 022 Albumin [Mass/Vol] 3.9 g/dL Normal 3.4-5.0 [facility] Comment on above: Performed By: #### T 7, TSH, CMP, BNP #### [facility] [address] [place] [address] Dr. Keeley Hoskins Albumin/Globulin [Mass ratio] 1.1 {ratio} Normal [facility] Comment on above: Performed By: #### T 7, TSH, CMP, BNP #### [facility] [address] [place] [address] Dr. Keeley Hoskins ALP [Catalytic activity/Vol] 143 U/L Critically high 46-116 [facility] Comment on above: Performed By: #### T 7, TSH, CMP, BNP #### [facility] [address] [place] [address] Dr. Keeley Hoskins ALT [Catalytic activity/Vol] 43 U/L Normal 14-59 [facility] Comment on above: Performed By: #### T 7, TSH, CMP, BNP #### [facility] [address] [address] [address] Keeley Hoskins Anion gap [Moles/Vol] 15.6 mmol/L Normal [facility] Comment on above: Performed By: #### T 7, TSH, CMP, BNP #### [facility] [address] [address] [address] Keeley Hoskins AST [Catalytic activity/Vol] 23 U/L Normal 15-37 [facility] Comment on above: Performed By: #### T 7, TSH, CMP, BNP #### [facility] [address] [address] [address] Keeley Hoskins Bilirubin [Mass/Vol] 0.6 mg/dL Normal 0.2-1.0 [facility] Comment on above: Performed By: #### T 7, TSH, CMP, BNP #### [facility] [address] [address] [address] Keeley Hoskins Calcium [Mass/Vol] 9.2 mg/dL Normal 8.5-10.1 [facility] Comment on above: Performed By: #### T 7, TSH, CMP, BNP #### [facility] [address] [address] [address] Keeley Hoskins Chloride [Moles/Vol] 96 mmol/L Critically low 98-107 [facility] Comment on above: Performed By: #### T 7, TSH, CMP, BNP #### [facility] [address] [address] [address] Keeley Hoskins CO2 [Moles/Vol] 25.1 mmol/L Normal 21.0-32.0 [facility] Comment on above: Performed By: #### T 7, TSH, CMP, BNP #### [facility] [address] [address] [address] Keeley Hoskins Creatinine [Mass/Vol] 1.14 mg/dL Critically high 0.55-1.02 [facility] Comment on above: Performed By: #### T 7, TSH, CMP, BNP #### [facility] [address] [address] [address] Keeley Hoskins EGFR-AF SRI LANKAN >60 Normal >=60 [facility] Comment on above: Performed By: #### T 7, TSH, CMP, BNP #### [facility] [address] [address] [address] Keeley Hoskins EGFR-NON AF SRI LANKAN 52 mL/min/1.73m2 Critically low >=60 [facility] Comment on above: Performed By: #### T 7, TSH, CMP, BNP #### [facility] [address] [address] [address] Keeley Hoskins Globulin (S) [Mass/Vol] 3.4 g/dL Normal [facility] Comment on above: Performed By: #### T 7, TSH, CMP, BNP #### [facility] [address] [place] [address] Dr. Keeley Hoskins Glucose [Mass/Vol] 438 mg/dL Critically high 74-106 [facility] Comment on above: Performed By: #### T 7, TSH, CMP, BNP #### [facility] [address] [place] [address] Dr. Keeley Hoskins Potassium [Moles/Vol] 4.7 mmol/L Normal 3.5-5.1 [facility] Comment on above: Performed By: #### T 7, TSH, CMP, BNP #### [facility] [address] [place] [address] Dr. Keeley Hoskins Protein [Mass/Vol] 7.3 g/dL Normal 6.4-8.2 [facility] Comment on above: Performed By: #### T 7, TSH, CMP, BNP #### [facility] [address] [address] [address] Keeley Hoskins Sodium [Moles/Vol] 132 mmol/L Critically low 136-145 [facility] Comment on above: Performed By: #### T 7, TSH, CMP, BNP #### [facility] [address] [address] [address] Keeley Hoskins Urea nitrogen [Mass/Vol] 17.0 mg/dL Normal 7.0-18.0 [facility] Comment on above: Performed By: #### T 7, TSH, CMP, BNP #### [facility] [address] [address] [address] Keeley Hoskins Urea nitrogen/Creatinine [Mass ratio] 14.9 mg/mg Normal [facility] Comment on above: Performed By: #### T 7, TSH, CMP, BNP #### [facility] [address] [address] [address] Keeley Hoskins TSHon 03-16-2022 TSH 2.240 uIU/mL Normal 0.358-3.740 [facility] Comment on above: Performed By: #### R ENAL, LIPID #### [facility] [address] [address] [address] Keeley Hoskins Reminderson 06-23-2021 Reminders - From: Wendy Ortega LPN To: N - Clinical; Sent: 06/23/2021 10:39:31 EDT Show up: 05/08/2026 08:00:00 EDT Subject: colonoscopy recall Due Date/Time: 06/08/2026 08:00:00 EDT Reminder/Recall Patient is due to repeat colonoscopy 06/08/2026 due to history of tubular adenoma. Normal [facility] Ambulatory Clinical Summaryo n 06-22-2021 Ambulatory Clinical Summary {[id number]}CD:[id number] Normal [facility] General Surgery Office/Clini c Noteon 06-22-2021 General Surgery Office/Clinic Note Chief Complaint post operative follow up HPI Staff 14 day post operative follow up post colonoscopy with transverse polypectomy. History of Present Illness f/u after colonoscopy; had redundant colon with 2 transverse colon polyps removed, one was hyperplastic, and second adjacent polyp was a tubular adenoma; doing well, denies pain or blood in stools. Physical Exam Vitals & Measurements T: 36.2 ?C (Temporal Artery) Assessment/Plan 1. Benign neoplasm of transverse colon (D12.3: Benign neoplasm of transverse colon) recommend follow up colonoscopy in 5 years for surveillance; call sooner if problems/questions. 2. IBS (irritable bowel syndrome) (K58.9: Irritable bowel syndrome without diarrhea) high fiber diet and fiber supplement; call with problems/questions. 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 Medications Advair 250 mcg-50 mcg Powder, See Instructions aspirin 81 mg Oral EC Tab, 81 mg= 1 tab(s), Oral, Daily citalopram 20 mg Tab, 20 mg= 1 tab(s), Oral, Daily famotidine 20 mg Tab, 20 mg= 1 tab(s), Oral, BID Humulin R (Concentrated) 500 units/mL subcutaneous solution, See Instructions Lasix 80 mg Tab, 80 mg= 1 tab(s), Oral, Daily levetiracetam 500 mg Tab, See Instructions levothyroxine 100 mcg (0.1 mg) Tab, 100 mcg= 1 tab(s), Oral, Daily LORazepam 1 mg Tab, 1 mg= 1 tab(s), Oral, TID, PRN losartan 50 mg Tab, 50 mg= 1 tab(s), Oral, Daily metformin 500 mg Tab, 1000 mg= 2 tab(s), Oral, BID omeprazole 40 mg Cap-DR, 40 mg= 1 cap(s), Oral, Daily potassium chloride 10 mEq ER Tab, 10 mEq= 1 tab(s), Oral, BID Risperdal 2 mg Tab, 2 mg= 1 tab(s), Oral, Bedtime simvastatin 20 mg Tab, 20 mg= 1 tab(s), Oral, Once a day (at bedtime) Vitamin D, See Instructions Wellbutrin XL 300 mg/24 hours Tab-ER, 300 mg= 1 tab(s), Oral, Daily Allergies Depakote (Hive) LaMICtal (Rash) Lortab (VOMITING) Trileptal (Rash) Vicodin (EDEMA) lisinopril (Edematous skin) morphine (Rash) penicillin (Rash) Social History Alcohol - Denies Alcohol Use, 03/27/2019 Substance Abuse - Denies Substance Abuse, 03/27/2019 Tobacco Former smoker, quit more than 30 days ago Tobacco Use:. Cigarettes, Started age 15.0 Years. Stopped age 32 Years., 06/22/2021 Family History Eaton disease: Mother. Bipolar: Brother. Hyperlipidemia: Father. Hypertension: Father. Hypothyroidism: Mother and Father. Primary malignant neoplasm of skin: Father. Normal [facility] Comment on above: Result Comment: Elec tronically Signed By: AILYN CHENG, Kobe Radford\Date and Time Signed: 06/22/21 15:22 EDT KNEE RIGHT 3 [facility] 1 KNEE RIGHT 3 VWS [facility] Department of Radiology [address] [place] [id number] Patient Name: SCAR JEFFREY : 1980 Sex: F Age: Race: White Pt. Location: Patient Status: O Ordered Date: 06/13/2021 9:05:00 AM Completed Date: 06/13/2021 09:13 AM Requesting Provider: TONYA CENTENO Attending Provider: TONYA CENTENO Report Copy To: Signs & Symptoms: M25.561 Pain in right knee I10 History: Comments: standing , Weight Bearing?: Y Exam: KNEE RIGHT 3 VWS KNEE RIGHT 3 VWS 06/13/2021 9:13 AM CLINICAL INDICATIONS: M25.561 Pain in right knee I10 TECHNOLOGIST COMMENTS: Patient complains right knee pain. QUESTION FOR THE RADIOLOGIST: standing , Weight Bearing?: Y PROTOCOL: AP,Lateral and Tangential views were obtained. COMPARISON: November 15, 2020 FINDINGS: There is normal alignment. No fracture. Mild medial joint space narrowing. No effusion or soft tissue swelling IMPRESSION: No acute pathology Electronically signed: Toyin Juan. Transcribed by: [email or web address], User Resident: Electronically Signed by: TOYIN JUAN @ 06/13/2021 11:03 AM Normal [facility] Comment on above: Order Comment: stand ing , Weight Bearing?: Y Outside Colonoscopyon 2020 Outside Colonoscopy [id number] .00CD:127 Normal [facility] Pathology Noteon 06-10-2021 Pathology Note [id number] .00CD:127 Normal [facility] Lab Reportson 06-07-2021 Lab Reports [id number]# 1.00CD:127 [facility] Pre-Certification Formon Pre-Certification Form [id number] .00CD:127 [facility] Pre-Certification Form [id number] .00CD:127 [facility] May 27, 2021 Lorenzo Cortez, [address] [place] [address] [place] [address] Re: SCAR JEFFREY Date of : 1980 Thank you for your referral of Scar Jeffrey who was seen on consultation ojn May 20, 2021, for screening colonoscopy. I have enclosed my consultation notes for your review. I will be happy to follow Scar. Sincerely, Kobe Ramesh MD General Surgery Normal [facility] Formson 05-20-2021 Forms [id number] .00CD:127 Normal [facility] Physician Referralon 021 Physician Referral [id number] .00CD:127 Normal [facility] KNEE RIGHT 3 VWSon KNEE RIGHT 3 S [facility] Department of Radiology [address] [place] [id number] Patient Name: SCAR JEFFREY : 1980 Sex: F Age: Race: White Pt. Location: 84 Patient Status: O Ordered Date: 11/15/2020 10:15:00 AM Completed Date: 11/15/2020 10:33 AM Requesting Provider: TONYA CENTENO Attending Provider: TONYA CENTENO Report Copy To: Signs & Symptoms: M25.561 Pain in right knee I10 History: [place] Comments: evaluate Exam: KNEE RIGHT 3 S KNEE RIGHT 3 VWS 11/15/2020 10:33 AM CLINICAL INDICATIONS: M25.561 Pain in right knee I10 TECHNOLOGIST COMMENTS: Patient complains of right knee and right tibia pain since 07/2020. QUESTION FOR THE RADIOLOGIST: Evaluate. PROTOCOL: AP,Lateral and Tangential views were obtained. COMPARISON: 08/02/2020. FINDINGS: There is a faint lucency of the lateral tibial condyle consistent with a nondisplaced fracture. No joint effusion. IMPRESSION: Nondisplaced fracture of the lateral tibial condyle. Consider cross-sectional imaging. Approved by:Gregg Tai11/15/2020 11:22 AM. I, Naila Puentes,have reviewed the images and reports Electronically signed: Naila Puentes. Transcribed by: [email or web address], User Resident: GREGG LEMONS Electronically Signed by: NAILA PUENTES @ 11/15/2020 11:25 AM I personally read this/these film(s) with this resident Normal [facility] Comment on above: Order Comment: evalu ate TIBIA FIBULA RIGHTon 021 TIBIA FIBULA RIGHT [facility] Department of Radiology [address] [place] [id number] Patient Name: SCAR JEFFREY : 1980 Sex: F Age: Race: White Pt. Location: Patient Status: O Ordered Date: 11/15/2020 9:55:00 AM Completed Date: 11/15/2020 10:33 AM Requesting Provider: TONYA CENTENO Attending Provider: TONYA CENTENO Report Copy To: Signs & Symptoms: S82.142A Displaced bicondylar fracture of right tibia, init I10 History: [place] Comments: evaluate Exam: TIBIA FIBULA RIGHT Addendum Begins Osseous irregularity of the lateral tibial plateau concerning for fracture, please refer to separately dictated knee radiograph. Electronically signed: Naila Puentes. Addendum Ends TIBIA FIBULA RIGHT CLINICAL INFORMATION: Patient complains of right knee and right tibia pain since 07/2020. VIEWS: AP(PA) and Lateral views were obtained. COMPARISON: None. IMPRESSION: 1. No fracture or other acute osseous abnormality. Electronically signed: Naila Puentes. Transcribed by: [email or web address], User Resident: Electronically Signed by: NAILA PUENTES @ 11/15/2020 11:37 AM Normal [facility] Comment on above: Order Comment: evalu ate Encounters Encounter Date Encounter Type Care Provider Facility Start: 07-10-2023 ambulatory Castillo Rollins acility:[facility] Start: 01-22-2023 End: 01-23-[address] LORENZO CORTEZ . Facility:[facility] Start: 01-03-2023 End: 01-04-[address] LORENZO CORTEZ . Facility:[facility] Start: 10-13-2022 End: 10-14-[address] LORENZO CORTEZ . Facility:[facility] Start: 10-06-2022 End: 10-06-[address] LORENZO CORTEZ . Facility:[facility] Start: 10-06-2022 End: 10-07-[address] LORENZO CORTEZ . Facility:[facility] Start: 04-17-2022 End: 04-18-[address] LORENZO CORTEZ . Facility:[facility] Start: 03-30-2022 End: 03-31-[address] LORENZO CORTEZ . Facility:[facility] Start: 03-16-2022 End: 03-17-[address] LORENZO CORTEZ . Facility:[facility] Start: 10-15-2020 End: 11-01-2020 ambulatory TONYA CENTENO Facility:[facility] Payers Date Payer Category Payer Self-pay 1980 Unknown [id number] 2.16.8 [id number] 1980 Unknown [id number] 2.16.84 [id number] 1980 Unknown [id number] 2.16.84 [id number] 1980 Unknown [id number] 2.16.84 [id number] 1980 Unknown [id number] 2.16.84 [id number] 1980 Unknown [id number] 2.16.84 [id number] 1980 Unknown [id number] 2.16.84 [id number] 1980 Unknown [id number] 2.16.84 [id number] 1980 Unknown [id number] 2.16.84 [id number] 1980 Unknown [id number] 2.16.84 [id number] 1961 Medicaid [id number] 1961 Private Health Insurance [id number] Unknown [id number] 2.16.8 [id number] Clinical Note 04-17-2022 Note Date & Type Note Facility 04-17-2022 Note CARDIAC STRESS TEST Requesting Physician: Procedure Date:04/17/2022 TREADMILL CARDIOLITE STRESS TEST INDICATIONS: Dyspnea METHODS: After risks, benefits and alternatives were explained, written informed consent was obtained. The patient was brought to the Stress Lab in a resting and fasting state. She was connected to the appropriate hemodynamic and electrocardiographic monitoring. She underwent a Mick protocol for exercise. At the completion of the test, she was transferred to the Nuclear Lab for nuclear imaging. There were no complications. FINDINGS: HEMODYNAMICS: The patient exercised for 6 minutes and 2 seconds. Resting heart rate was 92 beats per minute, increasing to a maximum of 150 beats per minute. This is 84% of maximum predicted heart rate. Resting blood pressure was 174/84, increasing to a maximum of 214/98. The test was terminated due to an exaggerated blood pressure response, as well as chest discomfort. ELECTROCARDIOGRAPHY: Rest EKG: Sinus rhythm, normal EKG. During exercise and recovery, there are upsloping ST depressions. No significant arrhythmias are seen. IMPRESSIONS: 1. Submaximal stress test due to inability to achieve 85% of maximum predicted heart rate. 2. Normal heart rate and exaggerated blood pressure response to exercise. 3. No ischemic ST-T wave changes noted on treadmill Cardiolite stress test. 4. Nuclear images are to be read, interpreted and reported in a separate dictation. 5. A Louis Score was not calculated due to inability to achieve 85% of maximum predicted heart rate. [facility] Clinical Note 05-26-2021 Note Date & Type Note Facility 05-26-2021 Note Chief Complaint consultation for colonoscopy HPI Staff 40 year old female presents on consultation from Dr. Cortez for screening colonoscopy. Denies abdominal or rectal pain. Denies rectal bleeding. Mild nausea, denies vomiting. No change in bowel habits; has chronic constipation. Denies unexplained weight loss. Never had colonoscopy in the past. Two paternal uncles with colon cancer, patient believes diagnosed age 60's. History of Present Illness 40 yo female with h/o htn, DMI, on insulin pump, sleep apnea, referred for colorectal screening; denies change in bms or blood in stools, no abdominal complaints; abdominal operations significant for cholecystectomy, and ELISE; on baby asa daily, no NSAIDs, no SBE prophylaxis; + Fmhx of colon cancer in two paternal Uncles, unsure age of diagnosis, not elderly; no previous colonoscopy; no fmhx of IBD; no tobacco use. Review of Systems PHQ Score Initial Depression Screen Score: 0 ROS - Provider Constitutional: no fever, no sweats, no weight loss. Eyes: no glasses, no blurred vision, no visual loss. ENMT: no dentures, no hoarseness, no swallowing difficulties, no hearing loss, no ear infection(s), no nose bleeds. Cardiovascular: high blood pressure, no chest pain, regular heartbeat, no heart murmur. Respiratory: no shortness of breath, no cough, no asthma, no wheezing. Gastrointestinal: no nausea, no vomiting, no diarrhea, no constipation, no blood in stool, no change in bowel habits, no abdominal pain, no hepatitis. Genitourinary: no kidney stones, no urine infection, no dysuria. Musculoskeletal: no pain, no weakness. Skin: no changing moles, no rash, no skin lumps. Neurologic: no seizures, no epilepsy, no headache. Psychiatric: no emotional or psychiatric problem. Heme/Lymph: no bleeding problems, no anemia, no blood clots, no transfusions. Allergy/Immunologic: no swollen lymph nodes/glands, no IV drug abuse. Other: Additional ROS info: Except as noted in the above Review of Systems and in the History of Present Illness, all other systems have been reviewed and are negative or noncontributory. Physical Exam Vitals & Measurements T: 36.7 ?C (Temporal Artery) HR: 72(Peripheral) RR: 16 BP: 134/64 HT: 165.1 cm HT: 165.1 cm WT: 102.0 kg WT: 102 kg BMI: 37.42 HEENT: normal conjunctiva, sclera clear, no scleral icterus, EOM intact, PERRLA, oral mucosa moist without lesions. Neck: trachea midline, no mass, symmetric, no thyromegaly or nodules, no adenopathy Respiratory: lungs CTA, respirations non labored. Cardiovascular: regular rate and rhythm, no murmur, no pedal edema or varicosities. Gastrointestinal: obese, soft, non distended, no tenderness, no masses, well-healed incisions; no palpable hernias, diastasis recti yes, no hepatosplenomegaly; normal bs Lymphatic: no cervical adenopathy, Musculoskeletal: normal gait, digits and nails without infection, nodes, cyanosis, clubbing. Skin: no rashes, no lesions, no ulcers, no subcutaneous nodules, induration. Psychiatric/Neuro: oriented to time, place, person, judgement normal, affect appropriate for age, insight intact, no focal deficits. Tests: review of old records completed, Discussed surgical options, risks, and possible complications with patient. Assessment/Plan 1. Family history of colon cancer (Z80.0: Family history of malignant neoplasm of digestive organs) plan colonoscopy under anesthesia; informed consent obtained; patient to discuss with [employer] management of insulin pump on day of prep. 2. BMI 37.0-37.9, adult (Z68.37: Body mass index [BMI] 37.0-37.9, adult) recommend diet and exercise. 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 Medications Advair 250 mcg-50 mcg Powder, See Instructions aspirin 81 mg Oral EC Tab, 81 mg= 1 tab(s), Oral, Daily citalopram 20 mg Tab, 20 mg= 1 tab(s), Oral, Daily famotidine 20 mg Tab, 20 mg= 1 tab(s), Oral, BID Humulin R (Concentrated) 500 units/mL subcutaneous solution, See Instructions Lasix 80 mg Tab, (more content not included)... [facility] Comment on above: Result Comment: Elec tronically Signed By: AILYN CHENG, Kobe Radford\Date and Time Signed: 05/26/21 13:05 EDT Summary Purpose Family History No Family History Records FoundNo Family History Records FoundNo Family History Records FoundNo Family History Records Found Advance Directives No Advanced Directives Records FoundNo Advanced Directives Records FoundNo Advanced Directives Records FoundNo Advanced Directives Records Found Additional Source Comments INFORMATION SOURCE (unrecogn ized section and content) DATE CREATED AUTHOR 07/14/2021 [facility] DATE CREATED AUTHOR AUTHOR'S ORGANIZ ATION 10/02/2021 [facility] DATE CREATED AUTHOR AUTHOR'S ORGANIZ ATION 01/23/2023 [facility] DATE CREATED AUTHOR AUTHOR'S ORGANIZ ATION 09/22/2023 [facility] FOR RECORDS PERTAINING TO PATIENTS WHO ARE OR HAVE BEEN ENROLLED IN A CHEMICAL DEPENDENCY/SUBSTANCEABUSE PROGRAM, SOME INFORMATION MAY BE OMITTED. This clinical summary was aggregated from multiple sources. Caution should be exercised in using it in the provision of clinical care. This summary normalizes information from multiple sources, and as a consequence, information in this document may materially change the coding, format and clinical context of patient data. In addition, data may be omitted in some cases. CLINICAL DECISIONS SHOULD BE BASED ON THE PRIMARY CLINICAL RECORDS. [employer] provides no warranty or guarantee of the accuracy or completeness of information in this document.
== END 2023-11-02 09:39 | disposition home or self-care (01) ==
LOC: RAD 09:41
PROVIDERS: PCP Family Medicine; Visit Provider Family Medicine
DX: M79.673 Pain in unspecified foot (principal); S92.514A Nondisplaced fracture of proximal phalanx of right lesser toe(s), initial encounter for closed fracture
CPT/HCPCS: 73630

== ENCOUNTER 2023-11-07 09:27 | Outpatient (OUT) | payer MEDICARE, MEDICAID, SELFPAY ==
--- NOTE | 2023-11-07 | US_ITS ---
Patient Name: YANICK JEFFREY MR#: [id number] : 1980 Exam Date: 11/07/2023 Ordering Doctor: DR George Cortez . RADIOLOGY REPORT PROCEDURE: MM TOMOSYNTHESIS DIAGNOSTIC BI, 11/07/2023, 09:39 US BREAST BI LIMITED, 11/07/2023, 10:26 COMPARISON: None. INDICATIONS: unspecified lump in right breast N63.10 Calculator Name NCI Breast Cancer Risk Assessment Tool 5 Year Breast Cancer Risk 0.60% Lifetime Breast Cancer Risk 7.00% Personal Breast Cancer No Personal Ovarian Cancer No Treatments None Family Cancers None LOCATION: [facility] BREAST COMPOSITION: Extremely dense, which lowers the sensitivity of mammography. FINDINGS: DIAGNOSTIC CATEGORY 2--BENIGN FINDING: Scattered benign-appearing calcifications are present. RIGHT BREAST: No significant suspicious finding. No mammographic or ultrasound abnormality to correspond to the patient's palpable abnormality, upper outer quadrant LEFT BREAST: No significant suspicious finding. No mammographic or ultrasound abnormality to correspond to the patient's palpable abnormality, upper outer quadrant RECOMMENDATIONS: ROUTINE MAMMOGRAM AND CLINICAL EVALUATION IN 12 MONTHS. PLEASE NOTE: A NORMAL MAMMOGRAM DOES NOT EXCLUDE THE POSSIBILITY OF BREAST CANCER. A CLINICALLY SUSPICIOUS PALPABLE LUMP SHOULD BE BIOPSIED. Dictated by: Rashid Barrientos MD on 11/07/2023 at 10:43 Approved by: Rashid Barrientos MD on 11/07/2023 at 10:46
--- NOTE | 2023-11-07 09:34 | MM_ITS ---
Patient Name: YANICK JEFFREY MR#: [id number] : 1980 Exam Date: 11/07/2023 Ordering Doctor: DR George Cortez . RADIOLOGY REPORT PROCEDURE: MM TOMOSYNTHESIS DIAGNOSTIC BI, 11/07/2023, 09:39 US BREAST BI LIMITED, 11/07/2023, 10:26 COMPARISON: None. INDICATIONS: unspecified lump in right breast N63.10 Calculator Name NCI Breast Cancer Risk Assessment Tool 5 Year Breast Cancer Risk 0.60% Lifetime Breast Cancer Risk 7.00% Personal Breast Cancer No Personal Ovarian Cancer No Treatments None Family Cancers None LOCATION: [facility] BREAST COMPOSITION: Extremely dense, which lowers the sensitivity of mammography. FINDINGS: DIAGNOSTIC CATEGORY 2--BENIGN FINDING: Scattered benign-appearing calcifications are present. RIGHT BREAST: No significant suspicious finding. No mammographic or ultrasound abnormality to correspond to the patient's palpable abnormality, upper outer quadrant LEFT BREAST: No significant suspicious finding. No mammographic or ultrasound abnormality to correspond to the patient's palpable abnormality, upper outer quadrant RECOMMENDATIONS: ROUTINE MAMMOGRAM AND CLINICAL EVALUATION IN 12 MONTHS. PLEASE NOTE: A NORMAL MAMMOGRAM DOES NOT EXCLUDE THE POSSIBILITY OF BREAST CANCER. A CLINICALLY SUSPICIOUS PALPABLE LUMP SHOULD BE BIOPSIED. Dictated by: Rashid Barrientos MD on 11/07/2023 at 10:43 Approved by: Rashid Barrinetos MD on 11/07/2023 at 10:46
== END 2023-11-07 09:28 | disposition home or self-care (01) ==
LOC: MAMMO 09:27
PROVIDERS: PCP Family Medicine; Visit Provider Family Medicine
DX: N63.10 Unspecified lump in the right breast, unspecified quadrant (principal); N63.11 Unspecified lump in the right breast, upper outer quadrant
CPT/HCPCS: 76642; 77066; G0279

== ENCOUNTER 2023-11-29 10:50 | Outpatient (OUT) | payer MEDICARE, MEDICAID, SELFPAY ==
--- NOTE | 2023-11-29 10:54 | US_ITS ---
The [address] [address] Patient Name: YANICK JEFFREY MRN: [id number] date: 1980 Sex: F Assigned Patient Location: US Current Patient Location: US Accession/Order Number: [id number] Exam Date: 11/29/2023 10:58 Report Date: 11/29/2023 12:35 At the request of: LORENZO CARLSON Procedure: US thyroid EXAM: US thyroid HISTORY: Neck Mass R22.1 COMPARISON: None. TECHNIQUE: Multiple sonographic images of the thyroid gland were obtained, supplemented with Doppler. FINDINGS: The right lobe measures 4.6 x 1.2 x 1.4 cm. Slightly heterogeneous echoes are noted throughout. In the inferior aspect there is a small solid hypoechoic nodule measuring 0.4 x 0.4 x 0.3 cm. No other nodule is identified in the right lobe. The left lobe measures 4.8 x 1.4 x 1.2 cm. Slightly heterogeneous echoes are noted throughout. No nodule is identified within. The isthmus measures 2.4 mm in thickness. There is no evidence of an abnormal fluid collection surrounding the gland. In the soft tissues of the neck on the left at the site of palpable lump are 2 lymph nodes present, the largest measuring 1.5 x 0.9 x 0.8 cm. US/US thyroid IMPRESSION: The thyroid gland is not enlarged. The small nodule in the right lobe is considered TI RADS 4. Comparison with a previous study may be helpful. Biopsy is not recommended at this time. Follow-up study as clinically indicated. Incidentally noted in the soft tissues of the neck on the left for the patient has a reported palpable lump there are 2 lymph nodes present. Electronically authenticated by: BARRON GARBER Date: 11/29/2023 12:35
--- NOTE | 2023-11-29 11:03 | XR_ITS ---
The [address] [address] Patient Name: YANICK JEFFREY MRN: [id number] date: 1980 Sex: F Assigned Patient Location: Current Patient Location: Accession/Order Number: [id number] Exam Date: 11/29/2023 10:57 Report Date: 11/30/2023 07:34 At the request of: LORENZO CARLSON Procedure: XR sinus min 3V EXAMINATION: XR sinus min 3V HISTORY: Chronic Sinusitis COMPARISON: No relevant comparison available. FINDINGS: MAXILLARY: Suspect mild mucosal thickening. No fluid levels. ETHMOID: No mucosal thickening or fluid level. FRONTAL: Suspect mild mucosal thickening. No fluid levels. SPHENOID: No mucosal thickening or fluid level. OTHER: Negative. XR/XR sinus min 3V IMPRESSION: 1. No fluid levels to suggest acute sinusitis. 2. Suspect mild chronic sinusitis. Electronically authenticated by: FLORA DERAS Date: 11/30/2023 07:34
== END 2023-11-29 10:51 | disposition home or self-care (01) ==
LOC: US 10:50
PROVIDERS: PCP Family Medicine; Visit Provider Family Medicine
DX: J32.9 Chronic sinusitis, unspecified (principal); R22.1 Localized swelling, mass and lump, neck
CPT/HCPCS: 70220; 76536

== ENCOUNTER 2024-01-17 08:58 | Outpatient (OUT) | payer MEDICARE, MEDICAID, SELFPAY ==
--- NOTE | 2024-01-17 09:09 | CT_ITS ---
The [address] [address] Patient Name: YANICK JEFFREY MRN: [id number] date: 1980 Sex: F Assigned Patient Location: LAB Current Patient Location: LAB Accession/Order Number: [id number] Exam Date: 01/17/2024 09:25 Report Date: 01/17/2024 10:05 At the request of: THALIA METCALF Procedure: CT soft tissue neck w con CT soft tissue neck w con, 01/17/2024 9:25 AM EDT INDICATION: Lymphadenopathy of left cervical region R59.0 COMPARISON: Ultrasound of thyroid dated 11/29/2023 TECHNIQUE: CT imaging of the neck were acquired with contrast. Supplemental 2D reformatted images were generated and reviewed as needed. Dose reduction techniques were achieved by using automated exposure control and/or adjustment of mA and/or kV according to patient size and/or use of iterative reconstruction technique. FINDINGS: No abnormality of the base of skull is noted. The nasopharynx, oropharynx, hypopharynx and oral cavity are unremarkable. The parotids, submandibular glands are unremarkable. The larynx is unremarkable. No abnormality of paraglottic fat is noted. There is no lymph node enlargement by size criteria. No retropharyngeal lymph node is noted. Small stable cyst within the right thyroid. Otherwise, the thyroid gland is homogeneous. The visualized portions of lungs are unremarkable. There is no suspicious osteolytic or osteoblastic lesion. There are multilevel degenerative changes of cervical spine. CT/CT soft tissue neck w con IMPRESSION: No lymphadenopathy by size criteria is noted. Electronically authenticated by: GILBERTO MONTERO Date: 01/17/2024 10:05
[2024-01-17 09:15] LABS: Estimated GFR (African America >60 (>=60); Estimated GFR (Non-African Ame >60 (>=60)
== END 2024-01-17 08:59 | disposition home or self-care (01) ==
LOC: LAB 08:58
PROVIDERS: PCP Family Medicine; Visit Provider Otolaryngology
DX: R59.0 Localized enlarged lymph nodes (principal)
CPT/HCPCS: 36415; 70491; 82565; Q9967

== ENCOUNTER 2024-04-15 10:13 | Outpatient (OUT) | payer MEDICARE, MEDICAID, SELFPAY ==
--- OUTSIDE RECORDS SUMMARY | 2024-04-15 10:37 | XMS_ITS | CCD ---
Author Organization [facility] Care Team Providers Care Bond Writer Name Role Phone CARMEN CENTENOIL Attending Unavailable EBRAHEIM, TONYA Admitting Unavailable UNKNOWN, PHYSICIAN Referring Unavailable UNKNOWN, [...] Unavailable HOY ., DR VENTURA Consulting Unavailable EBER, DR FLORA Davidson Consulting Unavailable HOY ., DR VENTURA Admitting Unavailable HOY ., DR VENTURA Primary Care Unavailable HOY ., DR VENTURA Attending Unavailable HOY ., DR VENTURA Consulting Unavailable DURHAM, DR EDNA Carlson Consulting Unavailable HOY ., [...] HOY ., DR VENTURA Consulting Unavailable CARLOS, AHWHITNEYD Consulting Unavailable HOY ., DR VENTURA Primary Care Unavailable CARLOS, AHMAD Admitting Unavailable CARLOSBALTAZARD Attending Unavailable CARLOS, AHWHITNEYD Consulting Unavailable HOY ., DR VENTURA Primary Care Unavailable HOY ., DR VENTURA Attending Unavailable HOY ., DR VENTURA Admitting Unavailable DR LORENZO ZENDEJAS Consulting Unavailable DURHAM, DR EDNA Carlson Consulting Unavailable THALIA METCALF Attending Unavailable LORENZO CORTEZ Referring Unavailable THALIA METCALF Attending Unavailable Castillo Choudhary Attending Unavailab Castillo Matt Admitting Unavailab Lorenzo Benito Primary Care Unavailable Allergies Allergy Classification Reported Allergen(s) Allergy Type Date of Onset Reaction(s) Facility (1 source) Acetaminophen / HYDROcodone Drug Allergy 07-14-2013 [facility] (1 source) Acetaminophen / HYDROcodone Drug Allergy 11-02-2015 [facility] (1 source) Adhesive agent Drug allergy (disorder) 07-14-2013 [facility] (1 source) Amino Acids Drug Allergy 10-26-2015 [facility] (1 source) lamoTRIgine Drug Allergy 07-14-2013 [facility] (1 source) Morphine Drug Allergy 07-14-2013 [facility] (1 source) OXcarbazepine Drug Allergy 07-14-2013 [facility] (1 source) Penicillins Drug allergy (disorder) 07-14-2013 [facility] (1 source) Valproate Drug Allergy 07-14-2013 [facility] Problems Active Problems Problem Classification Problem [...] Onset: 03-20-2022 Episodic Other 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; Translations: [SENIOR CARE CURRENT USE OF INSULIN] Onset: 10-09-2022 Episodic Other lower respiratory disease (5 sources) Other forms of dyspnea; Translations: [OTHER FORMS OF DYSPNEA] Onset: 04-03-2022 Episodic Residual codes; unclassified (4 sources) Edema, unspecified; Translations: [EDEMA UNSPECIFIED] Onset: 03-30-2022 Episodic Results Test Name Value Interpretation Reference Range Facility CREATININEon 01-22-2023 Creatinine [Mass/Vol] 0.98 mg/dL Normal 0.55-1.02 [facility] Comment on above: Performed By: #### C NILSON #### [facility] [address] [address] [address] Keeley Hoskins EGFR-AF VIETNAMESE >60 Normal >=60 [facility] Comment on above: Performed By: #### C NILSON #### [facility] [address] [address] [address] Keeley Hoskins EGFR-NON AF VIETNAMESE >60 Normal >=60 [facility] Comment on above: Performed By: #### C NILSON #### [facility] [address] [place] [address] NECK [address] W [...] by: EDNA GOMEZ Date: 2023-01-22 11:08 Normal [facility] MRI CSPINE WO CONon 01-23-20 MRI [facility]: Degeneration of cervical intervertebral disc [...] by: EDNA GOMEZ Date: 2023-01-22 11:04 Normal [facility] CT FACIAL BONES WO CONon 04- 27-2023 CT FACIAL [place]ON[facility] WO CON EXAMINATION: CT [...] FLORA DERAS Date: 2023-01-04 07:25 Normal [facility] XR CSPINE MIN 4 VIEWSon 12-10 XR [...] FLORA DERAS Date: 2023-01-04 07:12 Normal [facility] C-PEPTIDE, SERUMon C-Peptide, Serum <0.1 Critically low 1.1-4.4 [facility] Comment on above: Result Comment: C-Pe ptide reference interval is for fasting patients. Performed By: #### C PEPT #### [facility] [address] [place] [address] Dr. Keeley Hoskins BNPon 10-06-2022 Natriuretic peptide B (Bld) [Mass/Vol] 20.0 pg/mL Normal <=450.0 [facility] Comment on above: Performed By: #### R ENAL, LIPID #### [facility] [address] [address] [address] Keeley Hoskins LIPID PROFILEon 10-06-2022 CHOL-HDL RATIO NORM SEE BELOW Normal [facility] Comment on above: Result Comment: 3.3 - 4.4 LOW RISK 4.4 - 7.1 AVERAGE RISK 7.1 - 11.0 MODERATE RISK >11.0 HIGH RISK Performed By: #### R ENAL, LIPID #### [facility] [address] [place], [place] [address] Dr. Keeley Hoskins Cholesterol [Mass/Vol] 156 mg/dL Normal <=200 [facility] Comment on above: Performed By: #### R ENAL, LIPID #### [facility] [address] [address] [address] Keeley Hoskins Cholesterol in HDL [Mass/Vol] 32 mg/dL Critically low 40-60 [facility] Comment on above: Performed By: #### R ENAL, LIPID #### [facility] [address] [address] [address] Keeley Hoskins Cholesterol in LDL [Mass/Vol] 71.8 mg/dL Normal [facility] Comment on above: Performed By: #### R ENAL, LIPID #### [facility] [address] [place], [place] [address] Dr. Keeley Hoskins Cholesterol.total/C holesterol in HDL [Mass ratio] 4.9 {ratio} Normal [facility] Comment on above: Performed By: #### R ENAL, LIPID #### [facility] [address] [place], [place] [address] Dr. Keeley Hoskins HDL NORMAL > or = 60 mg/dl - LO W CARDIOVASCULAR RISK <40 mg/dl - HIGH CARDIOVASCULAR RISK Normal [facility] Comment on above: Performed By: #### R ENAL, LIPID #### [facility] [address] [address] [address] Keeley Hoskins LDL CALC NORMAL SEE BELOW Normal [facility] Comment on above: Result Comment: <100 mg/dl OPTIMAL 100 - 129 mg/dl NEAR OR ABOVE OPTIMAL 130 - 159 mg/dl BORDERLINE HIGH 160 - 189 mg/dl HIGH >190 mg/dl VERY HIGH Performed By: #### R SEGUN, LIPID #### [facility] [address] [place] [address] Dr. Keeley Hoskins Triglyceride [Mass/Vol] 261 mg/dL Critically high <=150 [facility] Comment on above: Performed By: #### R SEGUN, LIPID #### [facility] [address] [address] [address] Keeley Hoskins VLDL CALC 52.2 mg/dL Normal [facility] Comment on above: Performed By: #### R SEGUN, LIPID #### [facility] [address] [place] [address] Dr. Keeley Hoskins MICROALB CREAT RATIO RANDOMo n 10-06-2022 mALB 4.2 mg/L Normal <=30.0 [facility] Comment on above: Performed By: #### M CRR #### [facility] [address] [place] [address] Dr. Keeley Hoskins URINE CREAT <13.00 Critically low 20.00-300.00 [facility] Comment on above: Performed By: #### M CRR #### [facility] [address] [place] [address] Dr. Keeley Hoskins RENAL FUNCTION PANELon 10-06 Albumin [Mass/Vol] 4.0 g/dL Normal 3.4-5.0 [facility] Comment on above: Performed By: #### R SEGUN, LIPID #### [facility] [address] [place] [address] Dr. Keeley Hoskins Calcium [Mass/Vol] 9.3 mg/dL Normal 8.5-10.1 [facility] Comment on above: Performed By: #### R SEGUN, LIPID #### [facility] [address] [place] [address] Dr. Keeley Hoskins Chloride [Moles/Vol] 101 mmol/L Normal 98-107 [facility] Comment on above: Performed By: #### R ENAL, LIPID #### [facility] [address] [address] [address] Keeley Hoskins CO2 [Moles/Vol] 28.9 mmol/L Normal 21.0-32.0 [facility] Comment on above: Performed By: #### R ENAL, LIPID #### [facility] [address] [address] [address] Keeley Hoskins Creatinine [Mass/Vol] 0.81 mg/dL Normal 0.55-1.02 [facility] Comment on above: Performed By: #### R ENAL, LIPID #### [facility] [address] [address] [address] Keeley Hoskins EGFR-AF VIETNAMESE >60 Normal >=60 [facility] Comment on above: Performed By: #### R ENAL, LIPID #### [facility] [address] [address] [address] Keeley Hoskins EGFR-NON AF VIETNAMESE >60 Normal >=60 [facility] Comment on above: Performed By: #### R ENAL, LIPID #### [facility] [address] [address] [address] Keeley Hoskins Glucose [Mass/Vol] 123 mg/dL Critically high 74-106 [facility] Comment on above: Performed By: #### R ENAL, LIPID #### [facility] [address] [address] [address] Keeley Hoskins Phosphate [Mass/Vol] 3.9 mg/dL Normal 2.6-4.7 [facility] Comment on above: Performed By: #### R ENAL, LIPID #### [facility] [address] [address] [address] Keeley Hoskins Potassium [Moles/Vol] 4.4 mmol/L Normal 3.5-5.1 [facility] Comment on above: Performed By: #### R ENAL, LIPID #### [facility] [address] [address] [address] Keeley Hoskins Sodium [Moles/Vol] 140 mmol/L Normal 136-145 [facility] Comment on above: Performed By: #### R ENAL, LIPID #### [facility] [address] [address] [address] Keeley Hoskins Urea nitrogen [Mass/Vol] 12.0 mg/dL Normal 7.0-18.0 [facility] Comment on above: Performed By: #### R ENAL, LIPID #### [facility] [address] [address] [address] Keeley Hoskins VITAMIN D 25 OHon 10-06-2022 VIT D 25-OH 37.8 ng/mL Normal [facility] Comment on above: Performed By: #### R ENLISSY, LIPID #### [facility] [address] [address] [address] Keeley Hoskins VIT D RANGES SEE BELOW Normal [facility] Comment on above: Result Comment: <20 ng/mL Vit D deficient 20 - <30 ng/mL Vit D insufficient 30 - 100 ng/mL Vit D sufficient >100 ng/mL Potential Toxicity Performed By: #### R ENLISSY, LIPID #### [facility] [address] [place] [address] Dr. Keeley Hoskins NM STRESS/REST MULTIon 04-17 NM STRESS/REST MULTI Patient: SCAR JEFFREY Exam Date: 04/17/2022 : 1980 Gender:F Ordering : DR LORENZO CORTEZ . Admission #: [id number] Family : Order #: [id number] CLICK HERE TO VIEW EXAM RADIOLOGY REPORT [...] Gomez MD on 04/18/2022 at 11:44 Normal [facility] ECHOCARDIO M/2D COMPLETEon 0 03-30-2022 ECHOCARDIO M/2D COMPLETE Patient: SCAR JEFFREY Exam Date: 03/30/2022 : 1980 Gender:F Ordering : DR LOERNZO CORTEZ . Admission #: [id number] Family : Order #: [id number] CLICK HERE TO VIEW EXAM ECHOCARDIOGRAM REPORT [...] Wooten M.D. on 03/30/2022 at 13:50 Normal [facility] LIPID PROFILEon 03-30-2022 CHOL-HDL RATIO NORM SEE BELOW Normal [facility] Comment on above: Result Comment: 3.3 - 4.4 LOW RISK 4.4 - 7.1 AVERAGE RISK 7.1 - 11.0 MODERATE RISK >11.0 HIGH RISK Performed By: #### Lety CAST, LIPID #### [facility] [address] [address] [address] Keeley Hoskins Cholesterol [Mass/Vol] 140 mg/dL Normal <=200 [facility] Comment on above: Performed By: #### Lety CAST, LIPID #### [facility] [address] [address] [address] Keeley Hoskins Cholesterol in HDL [Mass/Vol] 30 mg/dL Critically low 40-60 [facility] Comment on above: Performed By: #### Lety CAST, LIPID #### [facility] [address] [address] [address] Keeley Hoskins Cholesterol in LDL [Mass/Vol] 69.2 mg/dL Normal [facility] Comment on above: Performed By: #### Lety CAST, LIPID #### [facility] [address] [address] [address] Keeley Hoskins Cholesterol.total/C holesterol in HDL [Mass ratio] 4.7 {ratio} Normal [facility] Comment on above: Performed By: #### R SEGUN, LIPID #### [facility] [address] [address] [address] Keeley Hoskins HDL NORMAL > or = 60 mg/dl - LO W CARDIOVASCULAR RISK <40 mg/dl - HIGH CARDIOVASCULAR RISK Normal [facility] Comment on above: Performed By: #### R SEGUN, LIPID #### [facility] [address] [address] [address] Keeley Hoskins LDL CALC NORMAL SEE BELOW Normal [facility] Comment on above: Result Comment: <100 mg/dl OPTIMAL 100 - 129 mg/dl NEAR OR ABOVE OPTIMAL 130 - 159 mg/dl BORDERLINE HIGH 160 - 189 mg/dl HIGH >190 mg/dl VERY HIGH Performed By: #### R ENAL, LIPID #### [facility] [address] [address] [address] Keeley Hoskins Triglyceride [Mass/Vol] 204 mg/dL Critically high <=150 [facility] Comment on above: Performed By: #### R ENAL, LIPID #### [facility] [address] [address] [address] Keeley Hoskins VLDL CALC 40.8 mg/dL Normal [facility] Comment on above: Performed By: #### R ENAL, LIPID #### [facility] [address] [place] [address] Dr. Keeley Hoskins MICROALB CREAT RATIO RANDOMo n 03-30-2022 mALB 8.3 mg/L Normal <=30.0 [facility] Comment on above: Performed By: #### M CRR #### [facility] [address] [place] [address] Dr. Keeley Hoskins MALB CR RATIO 466.0 mg/g Critically high 0.0-29.9 [facility] Comment on above: Performed By: #### M CRR #### [facility] [address] [place] [address] Dr. Keeley Hoskins MALB CR RATIO RANGE SEE BELOW Normal [facility] Comment on above: Result Comment: NO M ICROALBUMINURIA 0-29 MG/G CLINICAL MICROALBUMINURIA 30-300 MG/G MACROALBUMINURIA >300 MG/G Performed By: #### M CRR #### [facility] [address] [place] [address] Dr. Keeley Hoskins URINE CREAT 17.81 mg/dL Critically low 20.00-300.00 [facility] Comment on above: Performed By: #### M CRR #### [facility] [address] [place] [address] Dr. Keeley Hoskins RENAL FUNCTION PANELon 03-30 Albumin [Mass/Vol] 4.2 g/dL Normal 3.4-5.0 [facility] Comment on above: Performed By: #### R ENAL, LIPID #### [facility] [address] [address] [address] Keeley Hoskins Calcium [Mass/Vol] 9.2 mg/dL Normal 8.5-10.1 [facility] Comment on above: Performed By: #### R ENAL, LIPID #### [facility] [address] [address] [address] Keeley Hoskins Chloride [Moles/Vol] 98 mmol/L Normal 98-107 [facility] Comment on above: Performed By: #### R ENAL, LIPID #### [facility] [address] [place] [address] Dr. Keeley Hoskins CO2 [Moles/Vol] 28.6 mmol/L Normal 21.0-32.0 [facility] Comment on above: Performed By: #### R ENAL, LIPID #### [facility] [address] [place] [address] Dr. Keeley Hoskins Creatinine [Mass/Vol] 1.17 mg/dL Critically high 0.55-1.02 [facility] Comment on above: Performed By: #### R ENAL, LIPID #### [facility] [address] [place] [address] Dr. Keeley Hoskins EGFR-AF VIET[place]ESE >60 Normal >=60 [facility] Comment on above: Performed By: #### R ENAL, LIPID #### [facility] [address] [address] [address] Keeley Hoskins EGFR-NON AF VIET[place]ESE 50 mL/min/1.73m2 Critically low >=60 [facility] Comment on above: Performed By: #### R ENAL, LIPID #### [facility] [address] [address] [address] Keeley Hoskins Glucose [Mass/Vol] 212 mg/dL Critically high 74-106 [facility] Comment on above: Performed By: #### R ENAL, LIPID #### [facility] [address] [place] [address] Dr. Keeley Hoskins Phosphate [Mass/Vol] 4.0 mg/dL Normal 2.6-4.7 [facility] Comment on above: Performed By: #### R ENAL, LIPID #### [facility] [address] [place] [address] Dr. Keeley Hoskins Potassium [Moles/Vol] 4.1 mmol/L Normal 3.5-5.1 [facility] Comment on above: Performed By: #### R ENAL, LIPID #### [facility] [address] [place] [address] Dr. Keeley Hoskins Sodium [Moles/Vol] 136 mmol/L Normal 136-145 [facility] Comment on above: Performed By: #### R ENAL, LIPID #### [facility] [address] [place] [address] Dr. Keeley Hoskins Urea nitrogen [Mass/Vol] 16.0 mg/dL Normal 7.0-18.0 [facility] Comment on above: Performed By: #### R ENAL, LIPID #### [facility] [address] [place] [address] Dr. Keeley Hoskins VITAMIN D 25 OHon 03-30-2022 VIT D 25-OH 33.8 ng/mL Normal [facility] Comment on above: Performed By: #### V ITAD #### [facility] [address] [place] [address] Dr. Keeley Hoskins VIT D RANGES SEE BELOW Normal [facility] Comment on above: Result Comment: <20 ng/mL Vit D deficient 20 - <30 ng/mL Vit D insufficient 30 - 100 ng/mL Vit D sufficient >100 ng/mL Potential Toxicity Performed By: #### V ITAD #### [facility] [address] [place] [address] Dr. Keeley Hoskins BNPon 03-16-2022 Natriuretic peptide B (Bld) [Mass/Vol] 20.0 pg/mL Normal <=450.0 [facility] Comment on above: Performed By: #### T 7, TSH, CMP, BNP #### [facility] [address] [address] [address] Keeley Hoskins CBC AUTO DIFFon 03-16-2022 BASO # 0.1 103/ul Normal 0.0-0.1 [facility] Comment on above: Performed By: #### R ENAL, LIPID #### [facility] [address] [place] [address] Dr. Keeley Hoskins Basophils/100 WBC (Bld) 1.0 % Normal 0.2-2.0 [facility] Comment on above: Performed By: #### R ENAL, LIPID #### [facility] [address] [place] [address] Dr. Keeley Hoskins EO # 0.1 103/ul Normal 0.0-0.7 [facility] Comment on above: Performed By: #### R ENAL, LIPID #### [facility] [address] [place] [address] Dr. Keeley Hoskins Eosinophils/100 WBC (Bld) 1.8 % Normal 0.9-7.0 [facility] Comment on above: Performed By: #### R ENAL, LIPID #### [facility] [address] [place] [address] Dr. Keeley Hoskins Erythrocyte distribution width (RBC) [Ratio] 12.3 % Normal 11.0-15.0 [facility] Comment on above: Performed By: #### R ENAL, LIPID #### [facility] [address] [place] [address] Dr. Keeley Hoskins Hematocrit (Bld) [Volume fraction] 37.3 % Normal 36.0-48.0 [facility] Comment on above: Performed By: #### R ENAL, LIPID #### [facility] [address] [place] [address] Dr. Keeley Hoskins Hemoglobin (Bld) [Mass/Vol] 12.7 g/dL Normal 12.0-16.0 [facility] Comment on above: Performed By: #### R ENAL, LIPID #### [facility] [address] [place] [address] Dr. Keeley Hoskins IG # 0.04 10e3/ul Critically high 0.00-0.03 [facility] Comment on above: Performed By: #### R ENAL, LIPID #### [facility] [address] [address] [address] Keeley Hoskins IG % 0.6 % Critically high 0.0-0.5 [facility] Comment on above: Performed By: #### R ENAL, LIPID #### [facility] [address] [address] [address] Keeley Hoskins LYMPH # 1.8 103/ul Normal 1.2-3.8 [facility] Comment on above: Performed By: #### R ENAL, LIPID #### [facility] [address] [place] [address] Dr. Keeley Hoskins Lymphocytes/100 WBC (Bld) 26.4 % Normal 20.5-60.0 [facility] Comment on above: Performed By: #### R ENAL, LIPID #### [facility] [address] [place] [address] Dr. Keeley Hoskins MANUAL DIFF REQ NO Normal [facility] Comment on above: Performed By: #### R ENLISSY, LIPID #### [facility] [address] [place] [address] Dr. Keeley Hoskins MCH (RBC) [Entitic mass] 28.0 pg Normal 26.7-34.0 [facility] Comment on above: Performed By: #### R ENAL, LIPID #### [facility] [address] [address] [address] Keeley Hoskins MCHC (RBC) [Mass/Vol] 34.0 g/dL Normal 29.9-35.2 [facility] Comment on above: Performed By: #### R ENAL, LIPID #### [facility] [address] [place] [address] Dr. Keeley Hoskins MCV (RBC) [Entitic vol] 82.2 fL Normal 81.0-99.0 [facility] Comment on above: Performed By: #### R ENAL, LIPID #### [facility] [address] [place] [address] Dr. Keeley Hoskins MONO # 0.5 103/ul Normal 0.3-0.8 [facility] Comment on above: Performed By: #### R ENLISSY, LIPID #### [facility] [address] [place] [address] Dr. Keeley Hoskins Monocytes/100 WBC (Bld) 6.6 % Normal 1.7-12.0 [facility] Comment on above: Performed By: #### R ENLISSY, LIPID #### [facility] [address] [place] [address] Dr. Keeley Hoskins NEUT # 4.4 103/ul Normal 1.4-6.5 [facility] Comment on above: Performed By: #### R ENLISSY, LIPID #### [facility] [address] [place] [address] Dr. Keeley Hoskins Neutrophils/100 WBC (Bld) 63.6 % Normal 43.0-75.0 [facility] Comment on above: Performed By: #### R ENLISSY, LIPID #### [facility] [address] [place] [address] Dr. Keeley Hoskins Platelet mean volume (Bld) [Entitic vol] 10.4 fL Normal 9.5-13.5 [facility] Comment on above: Performed By: #### R ENLISSY, LIPID #### [facility] [address] [place] [address] Dr. Keeley Hoskins PLT 283 103/ul Normal 150-450 [facility] Comment on above: Performed By: #### R ENLISSY, LIPID #### [facility] [address] [place] [address] Dr. Keeley Hoskins RBC 4.54 106/ul Normal 4.20-5.40 [facility] Comment on above: Performed By: #### R ENLISSY, LIPID #### [facility] [address] [place] [address] Dr. Keeley Hoskins WBC 6.9 103/ul Normal 4.0-11.0 [facility] Comment on above: Performed By: #### R ENLISSY, LIPID #### [facility] [address] [place] [address] Dr. Keeley Hoskins FREE THYROXINE INDEX T7on FTI 2.91 Normal 1.30-4.50 [facility] Comment on above: Performed By: #### R ENAL, LIPID #### [facility] [address] [place] [address] Dr. Keeley Hoskins T3U 30.0 % Normal 30.0-39.0 [facility] Comment on above: Performed By: #### R ENAL, LIPID #### [facility] [address] [place] [address] Dr. Keeley Hoskins T4 [Mass/Vol] 9.70 ug/dL Normal 4.80-13.90 [facility] Comment on above: Performed By: #### R ENAL, LIPID #### [facility] [address] [place] [address] Dr. Keeley Hoskins IRONon 03-16-2022 Iron [Mass/Vol] 72.0 ug/dL Normal 50.0-170.0 [facility] Comment on above: Performed By: #### I MARY #### [facility] [address] [place] [address] Dr. Keeley Hoskins PROF 14(COMP METB)on 022 Albumin [Mass/Vol] 3.9 g/dL Normal 3.4-5.0 [facility] Comment on above: Performed By: #### T 7, TSH, CMP, BNP #### [facility] [address] [place] [address] Dr. Keeley Hoskins Albumin/Globulin [Mass ratio] 1.1 {ratio} Normal [facility] Comment on above: Performed By: #### T 7, TSH, CMP, BNP #### [facility] [address] [place] [address] Dr. Keeley Hoskins ALP [Catalytic activity/Vol] 143 U/L Critically high 46-116 [facility] Comment on above: Performed By: #### T 7, TSH, CMP, BNP #### [facility] [address] [place] [address] Dr. Keeley Hoskins ALT [Catalytic activity/Vol] 43 U/L Normal 14-59 [facility] Comment on above: Performed By: #### T 7, TSH, CMP, BNP #### [facility] [address] [place] [address] Dr. Keeley Hoskins Anion gap [Moles/Vol] 15.6 mmol/L Normal [facility] Comment on above: Performed By: #### T 7, TSH, CMP, BNP #### [facility] [address] [place] [address] Dr. Keeley Hoskins AST [Catalytic activity/Vol] 23 U/L Normal 15-37 [facility] Comment on above: Performed By: #### T 7, TSH, CMP, BNP #### [facility] [address] [place] [address] Dr. Keeley Hoskins Bilirubin [Mass/Vol] 0.6 mg/dL Normal 0.2-1.0 [facility] Comment on above: Performed By: #### T 7, TSH, CMP, BNP #### [facility] [address] [place] [address] Dr. Keeley Hoskins Calcium [Mass/Vol] 9.2 mg/dL Normal 8.5-10.1 [facility] Comment on above: Performed By: #### T 7, TSH, CMP, BNP #### [facility] [address] [place] [address] Dr. Keeley Hoskins Chloride [Moles/Vol] 96 mmol/L Critically low 98-107 [facility] Comment on above: Performed By: #### T 7, TSH, CMP, BNP #### [facility] [address] [place] [address] Dr. Keeley Hoskins CO2 [Moles/Vol] 25.1 mmol/L Normal 21.0-32.0 [facility] Comment on above: Performed By: #### T 7, TSH, CMP, BNP #### [facility] [address] [place] [address] Dr. Keeley Hoskins Creatinine [Mass/Vol] 1.14 mg/dL Critically high 0.55-1.02 [facility] Comment on above: Performed By: #### T 7, TSH, CMP, BNP #### [facility] [address] [address] [address] Keeley Hoskins EGFR-AF VIET[place]ESE >60 Normal >=60 [facility] Comment on above: Performed By: #### T 7, TSH, CMP, BNP #### [facility] [address] [address] [address] Keeley Hoskins EGFR-NON AF VI[place]ESE 52 mL/min/1.73m2 Critically low >=60 [facility] Comment on above: Performed By: #### T 7, TSH, CMP, BNP #### [facility] [address] [address] [address] Keeley Hoskins Globulin (S) [Mass/Vol] 3.4 g/dL Normal [facility] Comment on above: Performed By: #### T 7, TSH, CMP, BNP #### [facility] [address] [place] [address] Dr. Keeley Hoskins Glucose [Mass/Vol] 438 mg/dL Critically high 74-106 [facility] Comment on above: Performed By: #### T 7, TSH, CMP, BNP #### [facility] [address] [address] [address] Keeley Hoskins Potassium [Moles/Vol] 4.7 mmol/L Normal 3.5-5.1 [facility] Comment on above: Performed By: #### T 7, TSH, CMP, BNP #### [facility] [address] [address] [address] Keeley Hoskins Protein [Mass/Vol] 7.3 g/dL Normal 6.4-8.2 [facility] Comment on above: Performed By: #### T 7, TSH, CMP, BNP #### [facility] [address] [address] [address] Keeley Hoskins Sodium [Moles/Vol] 132 mmol/L Critically low 136-145 [facility] Comment on above: Performed By: #### T 7, TSH, CMP, BNP #### [facility] [address] [address] [address] Keeley Hoskins Urea nitrogen [Mass/Vol] 17.0 mg/dL Normal 7.0-18.0 [facility] Comment on above: Performed By: #### T 7, TSH, CMP, BNP #### [facility] [address] [address] [address] Keeley Hoskins Urea nitrogen/Creatinine [Mass ratio] 14.9 mg/mg Normal [facility] Comment on above: Performed By: #### T 7, TSH, CMP, BNP #### [facility] [address] [address] [address] Keeley Hoskins TSHon 03-16-2022 TSH 2.240 uIU/mL Normal 0.358-3.740 [facility] Comment on above: Performed By: #### R ENAL, LIPID #### [facility] [address] [address] [address] Keeley Hoskins Reminderson 06-23-2021 Reminders - From: Wendy Ortega LPN To: N - Clinical; Sent: 06/23/2021 10:39:31 EDT Show up: 05/08/2026 08:00:00 EDT Subject: colonoscopy recall Due Date/Time: 06/08/2026 08:00:00 EDT Reminder/Recall Patient is due to repeat colonoscopy 06/08/2026 due to history of tubular adenoma. Normal [facility] Ambulatory Clinical Summaryo n 06-22-2021 Ambulatory Clinical Summary {[id number]}CD:[id number] Normal [facility] General Surgery Office/Clini c Noteon 06-22-2021 [...] Stopped age 32 Years., 06/22/2021 Family History [place] disease: Mother. Bipolar: Brother. Hyperlipidemia: Father. Hypertension: Father. Hypothyroidism: Mother and Father. Primary malignant neoplasm of skin: Father. Normal [facility] Comment on above: Result Comment: Elec tronically Signed By: AILYN CHENG, Kobe Radford\Date and Time Signed: 06/22/21 15:22 EDT KNEE RIGHT 3 [facility] 1 KNEE RIGHT 3 [facility] Department of Radiology [address] [place] [id number] Patient Name: SCAR JEFFREY : 1980 Sex: F Age: Race: White Pt. Location: Patient Status: O Ordered Date: 06/13/2021 9:05:00 AM Completed Date: 06/13/2021 09:13 AM Requesting Provider: TONYA CENTENO Attending Provider: EBRAHEIM, TONYA Report Copy To: Signs & Symptoms: M25.561 [...] pathology Electronically signed: Toyin Juan. Transcribed by: [email or web address], User Resident: Electronically Signed by: TOYIN JUAN @ 06/13/2021 11:03 AM Normal [facility] Comment on above: Order Comment: stand ing , Weight Bearing?: Y Outside Colonoscopyon 2020 Outside Colonoscopy [id number]#1 .00CD:127 [facility] Pathology Noteon 06-10-2021 Pathology Note [id number]#1 .00CD:[address] [facility] Lab Reportson 06-07-2021 Lab Reports [id number]# 1.00CD:127 [facility] Pre-Certification Formon Pre-Certification Form [id number]#1 .00CD:127 [facility] Pre-Certification Form [id number]#1 .00CD:127 [facility] May 27, 2021 Lorenzo Cortez, [address] [place] [address] [place] [address] Re: SCAR JEFFREY Date of : 1980 Thank you for your referral of Scar Jeffrey who was seen on consultation ojn May 20, 2021, for screening colonoscopy. I have enclosed my consultation notes for your review. I will be happy to follow Scar. Sincerely, Kobe Ramesh MD General Surgery Normal [facility] Formson 05-20-2021 Forms [id number] .00CD:127 [facility] Physician Referralon 021 Physician Referral [id number] .00CD:127 [facility] KNEE RIGHT 3 VWSon KNEE RIGHT 3 [facility] Department of Radiology [address] [place] [phone] Patient Name: SCAR JEFFREY : 1980 Sex: F Age: Race: White Pt. Location: 82 Patient Status: O Ordered Date: 11/15/2020 10:15:00 AM Completed Date: 11/15/2020 10:33 AM Requesting Provider: TONYA CENTENO Attending Provider: TONYA CENTENO Report Copy To: Signs & Symptoms: M25.561 Pain in right knee I10 History: Delicia Comments: evaluate Exam: KNEE RIGHT 3 [facility] KNEE RIGHT 3 VWS 11/15/2020 10:33 AM [...] reports Electronically signed: Naila Puentes. Transcribed by: [email or web address], User Resident: GREGG LEMONS Electronically Signed by: NAILA PUENTES @ 11/15/2020 11:25 AM I personally read this/these film(s) with this resident Normal [facility] Comment on above: Order Comment: evalu ate TIBIA FIBULA RIGHTon 021 TIBIA FIBULA RIGHT [facility] Department of Radiology [address] [place] [phone] Patient Name: SCAR JEFFREY : 1980 Sex: F Age: Race: White Pt. Location: Patient Status: O Ordered Date: 11/15/2020 9:55:00 AM Completed Date: 11/15/2020 10:33 AM Requesting Provider: TONYA CENTENO Attending Provider: TONYA CENTENO Report Copy To: Signs & Symptoms: S82.142A Displaced bicondylar fracture of right tibia, init I10 History: [place] Comments: evaluate Exam: TIBIA FIBULA RIGHT Addendum [...] abnormality. Electronically signed: Naila Puentes. Transcribed by: [email or web address], User Resident: Electronically Signed by: NAILA PUENTES @ 11/15/2020 11:37 AM Normal [facility] Comment on above: Order Comment: evalu ate Encounters Encounter Date Encounter Type Care Provider Facility Start: 03-04-2024 ambulatory Castillo Rollins acility:[facility] Start: 01-23-2024 End: 01-23-2024 ambulatory THALIA HERNANDEZS Not Available Start: 12-24-2023 End: 12-24-2023 ambulatory THALIA Echeverria TIMMIS Not Available Start: 01-22-2023 End: 01-23-[address] LORENZO [...] End: 03-17-[address] LORENZO CORTEZ . Facility: Start: 10-15-2020 End: 11-01-2020 ambulatory TONYA CENTENO Facility:[facility] Payers Date Payer Category Payer Self-pay 1980 Unknown [id number] 2.16.8 [id number] 1980 Unknown [id number] 2.16.84 [id number] 1980 Unknown [id number] 2.16.84 [id number] 1980 Unknown [id number] 2.16.84 0.1.415933.3.579.2.593 1980 Unknown [id number] 2.16.84 0.1.526627.3.579.2.593 1980 Unknown [id number] 2.16.84 0.1.448139.3.579.2.593 1980 Unknown [id number] 2.16.84 0.1.626652.3.579.2.593 1980 Unknown [id number] 2.16.84 0.1.492366.3.579.2.593 1980 Unknown [id number] 2.16.84 0.1.081574.3.579.2.593 1980 Unknown [id number] 2.16.84 0.1.904294.3.579.2.593 1980 Unknown [id number] 2.16.84 0.1.306953.3.579.2.1259 1980 Unknown [id number] 2.16.84 0.1.878034.3.579.2.1259 1961 Medicaid [id number] 1961 Private Health Insurance [id number] Unknown [id number] 2.16.8 [id number] Clinical Note 04-17-2022 Note Date & Type [...] 85% of maximum predicted heart rate. [facility] Clinical Note 05-26-2021 Note Date & Type [...] informed consent obtained; patient to discuss with Art Supervisor management of insulin pump on day [...] 80 mg Tab, (more content not included)... [facility] Comment on above: Result Comment: Elec tronically Signed By: AILYN CHENG, Kobe Barnes.dimitrios\Date and Time Signed: 05/26/21 13:05 EDT Summary [...] section and content) DATE CREATED AUTHOR 07/14/2021 [facility] DATE CREATED AUTHOR AUTHOR'S ORGANIZ ATION 10/02/2021 [facility] DATE CREATED AUTHOR AUTHOR'S ORGANIZ ATION 01/23/2023 [facility] pital DATE CREATED AUTHOR AUTHOR'S ORGANIZ ATION 01/25/2024 [facility] EPIC DATE CREATED AUTHOR AUTHOR'S ORGANIZ ATION 03/05/2024 [facility] FOR RECORDS PERTAINING TO PATIENTS WHO ARE [...] BE BASED ON THE PRIMARY CLINICAL RECORDS. [facility] [employer] provides no warranty or guarantee of the accuracy or completeness of information in this document.
[2024-04-15 10:55] LABS: Basophils Absolute Auto 0.1 10^3/uL (0.0-0.1); Basophils Percent Auto 1.1 % (0.2-2.0); Eosinophils Absolute Auto 0.1 10^3/uL (0.0-0.7); Eosinophils Percent Auto 1.5 % (0.9-7.0); Hemoglobin 12.3 g/dL (12.0-16.0); Immature Granulocytes Abs Auto 0.03 10^3/uL (0.00-0.03); Immature Granulocytes Pct Auto 0.5 % (0.0-0.5); Lymphocytes Absolute Auto 2.2 10^3/uL (1.2-3.8); Lymphocytes Percent Auto 33.1 % (20.5-60.0); Mean Corpuscular HGB Conc 33.2 g/dL (29.9-35.2); Mean Corpuscular Hemoglobin 27.8 pg (26.7-34.0); Mean Corpuscular Volume 83.5 fL (81.0-99.0); Monocytes Absolute Auto 0.5 10^3/uL (0.3-0.8); Neutrophils Absolute Auto 3.8 10^3/uL (1.4-6.5); Neutrophils Percent Auto 56.8 % (43.0-75.0); Platelet Count 274 10^3/uL (150-450); Red Blood Count 4.43 10^6/uL (4.20-5.40); Red Cell Distribution Width 12.6 % (11.0-15.0); White Blood Count 6.6 10^3/uL (4.0-11.0)
[2024-04-15 11:08] LABS: Estimated Average Glucose 166 mg/dL; Glycohemoglobin A1C 7.4 % (4.5-6.2)
[2024-04-15 11:11] LABS: Alanine Aminotransferase 50 U/L (14-59); Albumin Globulin Ratio 1.3; Albumin Level 4.1 g/dL (3.4-5.0); Alkaline Phosphatase 118 U/L (46-116); Anion Gap 12.6; Aspartate Amino Transferase 30 U/L (15-37); BUN Creatinine Ratio 11.7; Bilirubin Total 0.6 mg/dL (0.2-1.0); Calcium 9.3 mg/dL (8.5-10.1); Carbon Dioxide 29.2 mmol/L (21.0-32.0); Chloride 102 mmol/L (98-107); Chol HDL Ratio 4.4; Cholesterol 148 mg/dL (<=200); Estimated GFR (African America >60 (>=60); Estimated GFR (Non-African Ame >60 (>=60); Free T3 2.83 pg/mL (2.18-3.98); Globulin 3.2 g/dL; Glucose 55 mg/dL (74-106); HDL Cholesterol 34 mg/dL (40-60); Potassium 3.8 mmol/L (3.5-5.1); Sodium 140 mmol/L (136-145); Thyroid Stimulating Hormone 1.638 uIU/mL (0.358-3.740); Total Protein 7.3 g/dL (6.4-8.2); Triglycerides 173 mg/dL (<=150); Troponin I High Sensitivity 5.7 pg/mL (4.0-51.3); VLDL CHOLESTEROL 34.6 mg/dL
== END 2024-04-15 10:14 | disposition home or self-care (01) ==
LOC: LAB 10:15
PROVIDERS: PCP Family Medicine; Visit Provider Family Medicine
DX: E78.5 Hyperlipidemia, unspecified (principal); R73.09 Other abnormal glucose; D64.9 Anemia, unspecified; E03.9 Hypothyroidism, unspecified; I11.0 Hypertensive heart disease with heart failure; I50.30 Unspecified diastolic (congestive) heart failure
CPT/HCPCS: 36415; 80053; 80061; 83036; 83540; 83880; 84436; 84443; 84481; 84484; 85025

== ENCOUNTER 2024-06-10 09:38 | Outpatient (OUT) | payer MEDICARE, MEDICAID, SELFPAY ==
--- NOTE | 2024-06-10 09:41 | US_ITS ---
The [address] [address] Patient Name: YANICK JEFFREY MRN: [id number] date: 1980 Sex: F Assigned Patient Location: US Current Patient Location: US Accession/Order Number: [id number] Exam Date: 06/10/2024 10:00 Report Date: 06/10/2024 13:48 At the request of: LORENZO CARLSON Procedure: US thyroid EXAMINATION: US thyroid HISTORY: Neck Mass R22.1 COMPARISON: 11/29/2023 TECHNIQUE: Sonographic images of the thyroid gland were obtained. FINDINGS: The right thyroid lobe measures 4.7 x 1.3 x 1.3 cm. Single stable 4 mm TR 4 nodule The thyroid isthmus measures 2.7 mm. No focal nodule The left thyroid lobe is normal in size, contour and echotexture measuring 3.9 x 1.6 x 1.7 cm In the region of patient's palpable mass/pain in a normal size normal morphology lymph node is observed measuring 1.6 x 0.7 x 0.7 cm. This has a thin hypoechogenic cortex measuring 2.6 mm with a hyperechogenic hypervascular hilum US/US thyroid IMPRESSION: Normal size normal morphology lymph node in the region of patient's palpable abnormality TI-RADS: The [employer] TI-RADS committee's white paper recommendations for thyroid lesions classified as TR4 (moderately suspicious) are listed below: > 1.0 cm. Follow-up ultrasound in 1, 2, 3, and 5 years. > 1.5 cm. FNA. J. Am Jose Eduardo Radiol 2017;14:587-595. Electronically authenticated by: EDNA GOMEZ Date: 06/10/2024 13:48
--- OUTSIDE RECORDS SUMMARY | 2024-06-10 09:58 | XMS_ITS | CCD ---
Author Organization [facility]ini[facility] Care Team Providers Care Marker Maker Name Role Phone NOÉHEIMTONYA Attending Unavailable EBRAHEIM TONYA Admitting Unavailable UNKNOWN, PHYSICIAN Referring Unavailable [...] Unavailable HOY ., DR VENTURA Consulting Unavailable ZIEBER, DR FLORA Davidson Consulting Unavailable HOY ., DR VENTURA Admitting Unavailable HOY ., DR VENTURA Primary Care Unavailable HOY ., DR VENTURA Attending Unavailable HOY ., DR VENTURA Consulting Unavailable GOSHEN, DR EDNA Carlson Consulting Unavailable HOY ., [...] Care Unavailable CARLOS, AHMAD Admitting Unavailable CARLOS, AHWHITNEYD Attending Unavailable CARLOS, AHWHITNEYD Consulting Unavailable HOY ., DR VENTURA Primary Care Unavailable HOY ., DR VENTURA Attending Unavailable HOY ., DR VENTURA Admitting Unavailable ALDO ., DR VENTURA Consulting Unavailable WEST, DR EDNA Carlson Consulting Unavailable THALIA METCALF Attending Unavailable LORENZO CORTEZ Referring Unavailable THALIA METCALF Attending Unavailable Castillo Choudhary Attending Unavailab Castillo Matt Admitting Unavailab Lorenzo Benito Primary Care Unavailable Lorenzo Cortez Primary Care Physician Kobe ROBERTSON Attending Unavailable Kobe ROBERTSON Attending Unavailable Lorenzo Cortez Referring Unavailable Allergies Allergy Classification Reported Allergen(s) Allergy Type Date of Onset Reaction(s) Facility (2 sources) Acetaminophen / HYDROcodone; Translations: [Vicodin] Drug Allergy 3 [facility] Repository (2 sources) Acetaminophen / HYDROcodone; Translations: [Lortab] Drug Allergy 6 [facility] (1 source) Adhesive agent Drug allergy (disorder) 3 [facility] (2 sources) Amino Acids; Translations: [lisinopril] Drug Allergy 6 [facility] (2 sources) lamoTRIgine; Translations: [LaMICtal] Drug Allergy 3 [facility] (2 sources) Morphine; Translations: [morphine] Drug Allergy 3 [facility] (2 sources) OXcarbazepine; Translations: [Trileptal] Drug Allergy 3 [facility] (1 source) Penicillins Drug allergy (disorder) 3 [facility] (2 sources) Valproate; Translations: [Depakote] Drug Allergy 3 [facility] (2 sources) Acetaminophen / HYDROcodone; Translations: [acetaminophen-hy drocodone] Drug Allergy Edema of pharynx (disorder) [facility] (1 source) lamoTRIgine; Translations: [lamotrigine] Drug Allergy Cutaneous eruption (morphologic abnormality) [facility] (1 source) Lisinopril; Translations: [lisinopril] Drug Allergy Edematous skin (disorder) [facility] (1 source) Morphine; Translations: [morphine] Drug Allergy Vomiting (disorder) [facility] (1 source) OXcarbazepine; Translations: [oxcarbazepine] Drug Allergy Edema of pharynx (disorder) [facility] (2 sources) Penicillin; Translations: [penicillin] Drug Allergy Cutaneous eruption (morphologic abnormality) [facility] (1 source) Valproate; Translations: [divalproex sodium] Drug Allergy Edema of pharynx (disorder) [facility] Medications Current Medications Medication Drug Class(es) Dates Sig (Normalized) Sig (Original) Albuterol (1 source) beta2-Adrenergic Agonist Start: 05-28-2024 take 2 puff(s) by inhalation every six hours Albuterol (Eqv-ProAir HFA) 2 puff(s), Inhalation, q6hr Shortness of breath or wheezing, Refill(s) 0 Start Date: 05/28/24 Status: Ordered amLODIPine 5 mg oral tablet (1 source) Dihydropyridine Calcium Channel Lester Start: 05-28-2024 take 1 tablet by mouth once daily amLODIPine 5 mg Tab 5 mg = 1 tab(s), Oral, Daily, Refills(s) 0 Start Date: 05/28/24 Status: Ordered aspirin 81 mg delayed release oral tablet (1 source) Platelet Aggregation Inhibitor, Nonsteroidal Anti-inflammatory Drug Start: 05-20-2021 take 1 tablet by mouth once daily aspirin 81 mg Oral EC Tab 81 mg = 1 tab(s), Oral, Daily, Refills(s) 0 Start Date: 05/20/21 Status: Ordered 24 hr buPROPion hydrochloride 300 mg extended release oral tablet (1 source) Aminoketone Start: 03-27-2019 take 1 tablet by mouth once daily Wellbutrin XL 300 mg/24 hours Tab-ER 300 mg = 1 tab(s), Oral, Daily Start Date: 03/27/19 Status: Ordered citalopram 40 mg oral tablet (1 source) Serotonin Reuptake Inhibitor Start: 05-28-2024 take 1 tablet by mouth once daily CeleXA 40 mg Tab 40 mg = 1 tab(s), Oral, Daily, Refills(s) 0 Start Date: 05/28/24 Status: Ordered famotidine 20 mg oral tablet (1 source) Histamine-2 Receptor Antagonist Start: 03-27-2019 take 1 tablet by mouth twice daily famotidine 20 mg Tab 20 mg = 1 tab(s), Oral, BID Start Date: 03/27/19 Status: Ordered ferrous sulfate 325 mg oral tablet (1 source) Start: 05-28-2024 take 1 tablet by mouth twice daily ferrous sulfate 325 mg Tab 325 mg = 1 tab(s), Oral, BID, Refills(s) 0 Start Date: 05/28/24 Status: Ordered furosemide 80 mg oral tablet (1 source) Loop Diuretic Start: 03-27-2019 take 1 tablet by mouth once daily Lasix 80 mg Tab 80 mg = 1 tab(s), Oral, Daily Start Date: 03/27/19 Status: Ordered insulin, regular, human 500 unt/ml injectable solution (1 source) Insulin Start: 05-18-2021 Humulin R (Concentrated) 500 units/mL subcutaneous solution See Instructions, via insulin pump Start Date: 05/18/21 Status: Ordered levETIRAcetam 500 mg oral tablet (1 source) Start: 05-18-2021 take 1 tablet by mouth twice daily levetiracetam 500 mg Tab 500 mg = 1 tab(s), Oral, BID Start Date: 05/18/21 Status: Ordered levothyroxine sodium 0.1 mg oral tablet (1 source) l-Thyroxine Start: 05-18-2021 take 1 tablet by mouth once daily levothyroxine 100 mcg (0.1 mg) Tab 100 mcg = 1 tab(s), Oral, Daily Start Date: 05/18/21 Status: Ordered LORazepam 1 mg oral tablet (1 source) Benzodiazepine Start: 03-27-2019 take 1 tablet by mouth twice daily as needed for anxiety LORazepam 1 mg Tab 1 mg = 1 tab(s), Oral, BID, PRN for anxiety Start Date: 03/27/19 Status: Ordered losartan potassium 100 mg oral tablet (1 source) Angiotensin 2 Receptor Lester Start: 05-28-2024 take 1 tablet by mouth once daily losartan 100 mg Tab 100 mg = 1 tab(s), Oral, Daily, Refills(s) 0 Start Date: 05/28/24 Status: Ordered metFORMIN hydrochloride 500 mg oral tablet (1 source) Biguanide Start: 03-27-2019 take 1 tablet by mouth once daily metformin 500 mg Tab 500 mg = 1 tab(s), Oral, Daily Start Date: 03/27/19 Status: Ordered omeprazole 40 mg delayed release oral capsule (1 source) Proton Pump Inhibitor Start: 03-27-2019 take 1 capsule by mouth once daily omeprazole 40 mg Cap-DR 40 mg = 1 cap(s), Oral, Daily Start Date: 03/27/19 Status: Ordered risperiDONE 2 mg oral tablet (1 source) Atypical Antipsychotic Start: 03-27-2019 take 1 tablet by mouth at bedtime Risperdal 2 mg Tab 2 mg = 1 tab(s), Oral, Bedtime Start Date: 03/27/19 Status: Ordered simvastatin 20 mg oral tablet (1 source) HMG-CoA Reductase Inhibitor Start: 05-18-2021 take 1 tablet by mouth once daily at bedtime simvastatin 20 mg Tab 20 mg = 1 tab(s), Oral, Once a day (at bedtime) Start Date: 05/18/21 Status: Ordered Vitamin D (1 source) Start: 04-09-2019 take 1 capsule by mouth every week Vitamin D = 1 cap(s), Oral, qWeek, Refills(s) 0 Start Date: 04/09/19 Status: Ordered Completed/Discontinued Medications Medication Drug Class(es) Dates Sig (Normalized) Sig (Original) potassium chloride 10 meq oral tablet (1 source) Start: 03-27-2019 take 1 tablet by mouth twice daily potassium chloride 10 mEq ER Tab 10 mEq = 1 tab(s), Oral, BID Start Date: 03/27/19 Status: Ordered Problems Active Problems Problem Classification Problem Date Documented Da te Episodic/Chronic Abdominal pain (1 source) Epigastric pain 05-28-2024 Episodic Anxiety disorders (2 sources) Anxiety; Translations: [Mixed anxiety and depressive disorder] 03-27-2019 Chronic Congestive heart failure; nonhypertensive (1 source) Unspecified diastolic (congestive) heart failure; Translations: [UNSPECIFIED DIASTOLIC HEART FAILURE] Onset: 3 Chronic Diabetes mellitus with complications (7 sources) 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; Translations: [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] Onset: 2 Chronic Diabetes mellitus without complication (1 source) Type 1 diabetes mellitus 05-20-2021 Chronic Diseases of mouth; excluding dental (5 sources) Mucocele of salivary gland; 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] Onset: 3 Episodic Epilepsy; convulsions (1 source) Seizure disorder 03-27-2019 Episodic Esophageal disorders (1 source) Gastroesophageal reflux disease 03-27-2019 Chronic Essential hypertension (6 sources) Essential (primary) hypertension; Translations: [Hypertensive disorder] Onset: 2 Chronic Headache; including migraine (1 source) Migraine 05-18-2021 Chronic Hypertension with complications and secondary hypertension (5 sources) Hypertensive heart disease with heart failure; Translations: [HTN HEART DISEASE W/HEART FAIL] Onset: 2 Chronic Mood disorders (1 source) Bipolar I disorder Onset: 2 05-28-2024 Chronic Nausea and vomiting (1 source) Nausea 05-28-2024 Episodic Neoplasms of unspecified nature or uncertain behavior (2 sources) Neoplasm of uncertain behavior of skin; Translations: [Neoplasm of uncertain behavior of skin] Onset: 4 Episodic Nutritional deficiencies (1 source) Vitamin D deficiency, unspecified; Translations: [VITAMIN D DEFICIENCY UNSPECIFIED] Onset: 3 Chronic Other and unspecified benign neoplasm (1 source) Benign neoplasm of transverse colon 06-22-2021 Episodic Other connective tissue disease (1 source) Diastasis recti 04-09-2019 Episodic Other gastrointestinal disorders (1 source) Irritable bowel syndrome 06-22-2021 Chronic Other gastrointestinal disorders (1 source) Abdominal bloating 05-28-2024 Episodic Other hereditary and degenerative nervous system conditions (1 source) Essential tremor 05-28-2024 Chronic Other nutritional; endocrine; and metabolic disorders (2 sources) Body mass index 30+ - obesity 04-09-2019 Chronic Other skin disorders (1 source) Hypertrophic condition of skin; Translations: [Other hypertrophic disorders of the skin] Onset: 4 Episodic Other skin disorders (1 source) Epidermoid cyst of skin of face 04-09-2019 Episodic Other skin disorders (1 source) Multiple skin tags 06-03-2024 Episodic Other upper respiratory disease (1 source) Chronic laryngitis 05-28-2024 Chronic Other upper respiratory disease (1 source) Lesion of vocal cord 05-28-2024 Episodic Phlebitis; thrombophlebitis and thromboembolism (1 source) H/O: Deep vein thrombosis 05-28-2024 Episodic Residual codes; unclassified (1 source) Sleep apnea 05-25-2021 Chronic Residual codes; unclassified (1 source) Family history of cancer of colon 05-20-2021 Episodic Spondylosis; intervertebral disc disorders; other back problems (1 source) Cervical disc disorder 03-27-2019 Chronic Spondylosis; intervertebral disc disorders; other back problems (2 sources) Radiculopathy, cervical region; Translations: [Cervical radiculopathy] Onset: 05-28-2024 Episodic Substance-related disorders (1 source) Cigarette smoker 05-28-2024 Chronic Thyroid disorders (1 source) Hypothyroidism 05-28-2024 Chronic Unclassified (1 source) Long-term current use of insulin 03-27-2019 Past or Other Problems Problem Classification Problem Date Documented Da te Episodic/Chronic Deficiency and other anemia (1 source) Anemia, unspecified; Translations: [ANEMIA UNSPECIFIED] Onset: 03-20-2022 Episodic Other aftercare (1 source) retirement (current) use of insulin; Translations: [GROUP HOME CURRENT USE OF INSULIN] Onset: 10-09-2022 Episodic Other lower respiratory disease (5 sources) Other forms of dyspnea; Translations: [OTHER FORMS OF DYSPNEA] Onset: 04-03-2022 Episodic Residual codes; unclassified (4 sources) Edema, unspecified; Translations: [EDEMA UNSPECIFIED] Onset: 03-30-2022 Episodic Results Test Name Value Interpretation Reference Range Facility Ambulatory Visit Summaryon 0 06-03-2024 Ambulatory Visit Summary Ambulatory Visit Summary YANICK JEFFREY :1980 Visit Date:06/03/2024 Ambulatory Visit Instructions Your Care Team Attending Physician - Kobe ROBERTSON MD Primary Care Physician - Lorenzo Cortez MD Referring Physician - Lorenzo Cortez MD This Is Your Medications List Contact prescribing physician if questions or concerns albuterol (Albuterol (Eqv-ProAir HFA)) amlodipine (amLODIPine 5 mg Tab) aspirin (aspirin 81 mg Oral EC Tab) buPROPion (Wellbutrin XL 300 mg/24 hours Tab-ER) citalopram (CeleXA 40 mg Tab) ergocalciferol (Vitamin D) famotidine (famotidine 20 mg Tab) ferrous sulfate (ferrous sulfate 325 mg Tab) furosemide (Lasix 80 mg Tab) insulin regular (Humulin R (Concentrated) 500 units/mL subcutaneous solution) levetiracetam (levetiracetam 500 mg Tab) levothyroxine (levothyroxine 100 mcg (0.1 mg) Tab) lorazepam (LORazepam 1 mg Tab) losartan (losartan 100 mg Tab) metformin (metformin 500 mg Tab) omeprazole (omeprazole 40 mg Cap-DR) potassium chloride (potassium chloride 10 mEq ER Tab) risperidone (Risperdal 2 mg Tab) simvastatin (simvastatin 20 mg Tab) Procedures Performed Colonoscopy (06/08/2021), Arthroscopic repair of rotator cuff., Caesarean section, Carpal tunnel release, section, Cholecystectomy, Cystectomy, Excision of vocal cord nodule, Insertion of insulin pump, Salpingo-oophorectomy, complete or partial, unilateral or bilateral (separate procedure), Total abdominal hysterectomy (corpus and cervix), with or without removal of tube(s), with or without removal of ovary(s);. Discharge Vitals Heart Rate (Peripheral) 72 Respiratory Rate 16 Blood Pressure 132/70 Height 167.64 cm Height 66 in Weight 103 kg Weight 226.6 lb BMI 36.65 What to do next Scheduled Follow-Up Appointments Sunday 3:00 PM EDT With: AILYN CHENG, Kobe Davidson Where: [address], [address], [place] [id number] Medications What How Much When Instructions Unchanged albuterol (Albuterol (Eqv-ProAir HFA)) 2 Puffs Inhalation Every 6 hours as needed for Shortness of breath or wheezing Contact prescribing physician if questions or concerns Unchanged amlodipine (amLODIPine 5 mg Tab) 1 Tablets By Mouth Every day Contact prescribing physician if questions or concerns Unchanged aspirin (aspirin 81 mg Oral EC Tab) 1 Tablets By Mouth Every day Contact prescribing physician if questions or concerns Unchanged buPROPion (Wellbutrin XL 300 mg/ 24 hours Tab-ER) 1 Tablets By Mouth Every day Contact prescribing physician if questions or concerns Unchanged citalopram (CeleXA 40 mg Tab) 1 Tablets By Mouth Every day Contact prescribing physician if questions or concerns Unchanged ergocalciferol (Vitamin D) 1 Capsules By Mouth Every week Contact prescribing physician if questions or concerns Unchanged famotidine (famotidine 20 mg Tab) 1 Tablets By Mouth 2 times a day Contact prescribing physician if questions or concerns Unchanged ferrous sulfate (ferrous sulfate 325 mg Tab) 1 Tablets By Mouth 2 times a day Contact prescribing physician if questions or concerns Unchanged furosemide (Lasix 80 mg Tab) 1 Tablets By Mouth Every day Contact prescribing physician if questions or concerns Unchanged insulin regular (Humulin R (Concentrated) 500 units/ mL subcutaneous solution) See instructions via insulin pump Contact prescribing physician if questions or concerns Unchanged levetiracetam (levetiracetam 500 mg Tab) 1 Tablets By Mouth 2 times a day Contact prescribing physician if questions or concerns Unchanged levothyroxine (levothyroxine 100 mcg (0.1 mg) Tab) 1 Tablets By Mouth Every day Contact prescribing physician if questions or concerns Unchanged lorazepam (LORazepam 1 mg Tab) 1 Tablets By Mouth 2 times a day as needed for for anxiety Contact prescribing physician if questions or concerns Unchanged losartan (losartan 100 mg Tab) 1 Tablets By Mouth Every day Contact prescribing physician if questions or concerns Unchanged metformin (metformin 500 mg Tab) 1 Tablets By Mouth Every day Contact prescribing physician if questions or concerns Unchanged omeprazole (omeprazole 40 mg Cap-DR) 1 Capsules By Mouth Every day Contact prescribing physician if questions or concerns Unchanged potassium chloride (potassium chloride 10 mEq ER Tab) 1 Tablets By Mouth 2 times a day Contact prescribing physician if questions or concerns Unchanged risperidone (Risperdal 2 mg Tab) 1 Tablets By Mouth At bedtime Contact prescribing physician if questions or concerns Unchanged simvastatin (simvastatin 20 mg Tab) 1 Tablets By Mouth Once a day (at bedtime) Contact prescribing physician if questions or concerns Allergies Depakote (Edema of throat) LaMICtal (Rash) Lortab (VOMITING) Trileptal (Edema of throat) Vicodin (Edema of throat) lisinopril (Edematous skin) morphine (Vomiting) penicillin (Rash) Pro (more content not included)... Normal [facility] CREATININEon 01-22-2023 Creatinine [Mass/Vol] 0.98 mg/dL Normal 0.55-1.02 [facility] Comment on above: Performed By: #### C NILSON #### [facility] [address] [place] [address] Dr. Yilan Hoskins EGFR-AF IRISH >60 Normal >=60 [facility] Comment on above: Performed By: #### C NILSON #### [facility] [address] [place] [address] Dr. Keeley Hoskins EGFR-NON AF IRISH >60 Normal >=60 [facility] Comment on above: Performed By: #### C NILSON #### [facility] [address] [place] [address] NECK [address] W [...] submandibular, and thyroid glands. LYMPH NODES: No pathological-appearing or enlarged lymph nodes. Scattered normal-sized lymph nodes VASCULATURE: No suspicious abnormality. BONES: No significant osseous lesions. Moderate degenerative spondylosis C5-C6 OTHER: No additional imaging findings. IMPRESSION: No focal left neck mass Electronically authenticated by: EDNA GOMEZ Date: 2023-01-22 11:08 Normal [facility] MRI CSPINE WO CONon 01-23-20 23 MRI CSPINE WO CON EXAMINATION: MRI CSPINE [...] by: EDNA GOMEZ Date: 2023-01-22 11:04 Normal [facility] CT FACIAL BONES WO CONon CT [...] by: FLORA DERAS Date: 2023-01-04 07:25 Normal [facility] XR CSPINE MIN 4 VIEWSon 12-10 [...] FLORA DERAS Date: 2023-01-04 07:12 Normal [facility] C-PEPTIDE, SERUMon C-Peptide, Serum <0.1 Critically low 1.1-4.4 [facility] Comment on above: Result Comment: C-Pe ptide reference interval is for fasting patients. Performed By: #### C PEPT #### [facility] [address] [place] [address] Dr. Keeley Hoskins BNPon 10-06-2022 Natriuretic peptide B (Bld) [Mass/Vol] 20.0 pg/mL Normal <=450.0 [facility] Comment on above: Performed By: #### R ENAL, LIPID #### [facility] [address] [place] [address] Dr. Keeley Hoskins LIPID PROFILEon 10-06-2022 CHOL-HDL RATIO NORM SEE BELOW Normal [facility] Comment on above: Result Comment: 3.3 - 4.4 LOW RISK 4.4 - 7.1 AVERAGE RISK 7.1 - 11.0 MODERATE RISK >11.0 HIGH RISK Performed By: #### R ENAL, LIPID #### [facility] [address] [place] [address] [address] Keeley Hoskins Cholesterol [Mass/Vol] 156 mg/dL Normal <=200 [facility] Comment on above: Performed By: #### R ENAL, LIPID #### [facility] [address] [place] [address] [address] Keeley Hoskins Cholesterol in HDL [Mass/Vol] 32 mg/dL Critically low 40-60 [facility] Comment on above: Performed By: #### R ENAL, LIPID #### [facility] [address] [place] [address] [address] Keeley Hoskins Cholesterol in LDL [Mass/Vol] 71.8 mg/dL Normal [facility] Comment on above: Performed By: #### R ENAL, LIPID #### [facility] [address] [place] [address] [address] Keeley Hoskins Cholesterol.total/ Cholesterol in HDL [Mass ratio] 4.9 {ratio} Normal [facility] Comment on above: Performed By: #### R ENAL, LIPID #### [facility] [address] [place] [address] [address] Keeley Hoskins HDL NORMAL > or = 60 mg/dl - LO W CARDIOVASCULAR RISK <40 mg/dl - HIGH CARDIOVASCULAR RISK Normal [facility] Comment on above: Performed By: #### R ENAL, LIPID #### [facility] [address] [place] [address] [address] Keeley Hoskins LDL CALC NORMAL SEE BELOW Normal [facility] Comment on above: Result Comment: <100 mg/dl OPTIMAL 100 - 129 mg/dl NEAR OR ABOVE OPTIMAL 130 - 159 mg/dl BORDERLINE HIGH 160 - 189 mg/dl HIGH >190 mg/dl VERY HIGH Performed By: #### R ENAL, LIPID #### [facility] [address] [place] [address] [address] Keeley Hoskins Triglyceride [Mass/Vol] 261 mg/dL Critically high <=150 [facility] Comment on above: Performed By: #### R ENAL, LIPID #### [facility] [address] [place] [address] [address] Keeley Hoksins VLDL CALC 52.2 mg/dL Normal [facility] Comment on above: Performed By: #### R ENAL, LIPID #### [facility] [address] [place] [address] [address] Keeley Hoskins MICROALB CREAT RATIO RANDOMo n 10-06-2022 mALB 4.2 mg/L Normal <=30.0 [facility] Comment on above: Performed By: #### M CRR #### [facility] [address] [place] [address] [address] Keeley Hoskins URINE CREAT <13.00 Critically low 20.00-300.00 [facility] Comment on above: Performed By: #### M CRR #### [facility] [address] [place] [address] [address] Keeley Hoskins RENAL FUNCTION PANELon 10-06 Albumin [Mass/Vol] 4.0 g/dL Normal 3.4-5.0 [facility] Comment on above: Performed By: #### R ENAL, LIPID #### [facility] [address] [place] [address] Dr. Keeley Hoskins Calcium [Mass/Vol] 9.3 mg/dL Normal 8.5-10.1 [facility] Comment on above: Performed By: #### R ENAL, LIPID #### [facility] [address] [place] [address] Dr. Keeley Hoskins Chloride [Moles/Vol] 101 mmol/L Normal 98-107 [facility] Comment on above: Performed By: #### R ENAL, LIPID #### [facility] [address] [place] [address] Dr. Keeley Hoskins CO2 [Moles/Vol] 28.9 mmol/L Normal 21.0-32.0 [facility] Comment on above: Performed By: #### R ENAL, LIPID #### [facility] [address] [place] [address] Dr. Keeley Hoskins Creatinine [Mass/Vol] 0.81 mg/dL Normal 0.55-1.02 [facility] Comment on above: Performed By: #### R ENAL, LIPID #### [facility] [address] [place] [address] Dr. Keeley Hoskins EGFR-AF IRISH >60 Normal >=60 [facility] Comment on above: Performed By: #### R ENAL, LIPID #### [facility] [address] [place] [address] Dr. Keeley Hoskins EGFR-NON AF IRISH >60 Normal >=60 [facility] Comment on above: Performed By: #### R ENAL, LIPID #### [facility] [address] [place] [address] Dr. Keeley Hoskins Glucose [Mass/Vol] 123 mg/dL Critically high 74-106 [facility] Comment on above: Performed By: #### R ENAL, LIPID #### [facility] [address] [place] [address] [address] Keeley Hoskins Phosphate [Mass/Vol] 3.9 mg/dL Normal 2.6-4.7 [facility] Comment on above: Performed By: #### R ENAL, LIPID #### [facility] [address] [place] [address] [address] Keeley Hoskins Potassium [Moles/Vol] 4.4 mmol/L Normal 3.5-5.1 [facility] Comment on above: Performed By: #### R ENAL, LIPID #### [facility] [address] [place] [address] [address] Keeley Hoskins Sodium [Moles/Vol] 140 mmol/L Normal 136-145 [facility] Comment on above: Performed By: #### R ENAL, LIPID #### [facility] [address] [place] [address] Dr. Keeley Hoskins Urea nitrogen [Mass/Vol] 12.0 mg/dL Normal 7.0-18.0 [facility] Comment on above: Performed By: #### R ENLISSY, LIPID #### [facility] [address] [place] [address] Dr. Keeley Hoskins VITAMIN D 25 OHon 10-06-2022 VIT D 25-OH 37.8 ng/mL Normal [facility] [facility] Comment [facility]: Performed By: #### R ENLISSY, LIPID #### [facility] [address] [place] [address] Dr. Keeley Hoskins VIT D RANGES SEE BELOW Normal [facility] Comment on above: Result Comment: <20 ng/mL Vit D deficient 20 - <30 ng/mL Vit D insufficient 30 - 100 ng/mL Vit D sufficient >100 ng/mL Potential Toxicity Performed By: #### R ENAL, LIPID #### [facility] [address] [place] [address] Dr. Keeley Hoskins NM STRESS/REST MULTIon 04-17 NM STRESS/REST MULTI Patient: YANICK JEFFREY Exam Date: 04/17/2022 : 1980 Gender:F Ordering : DR LORENZO CORTEZ . Admission #: [id number] Family : Order #: [id number] CLICK HERE TO VIEW EXAM RADIOLOGY REPORT [...] Gomez MD on 04/18/2022 at 11:44 Normal [facility] ECHOCARDIO M/2D COMPLETEon 0 03-30-2022 ECHOCARDIO M/2D COMPLETE Patient: YANICK JEFFREY Exam Date: 03/30/2022 : 1980 Gender:F Ordering : DR LORENZO CORTEZ . Admission #: [id number] Family : Order #: [id number] CLICK HERE TO VIEW EXAM ECHOCARDIOGRAM REPORT [...] Wooten M.D. on 03/30/2022 at 13:50 Normal [facility] LIPID PROFILEon 03-30-2022 CHOL-HDL RATIO NORM SEE BELOW Normal [facility] Comment on above: Result Comment: 3.3 - 4.4 LOW RISK 4.4 - 7.1 AVERAGE RISK 7.1 - 11.0 MODERATE RISK >11.0 HIGH RISK Performed By: #### R ENLISSY, LIPID #### [facility] [address] [address] [address] Keeley Hoskins Cholesterol [Mass/Vol] 140 mg/dL Normal <=200 [facility] Comment on above: Performed By: #### R SEGUN, LIPID #### [facility] [address] [place], [place] [address] Dr. Keeley Hoskins Cholesterol in HDL [Mass/Vol] 30 mg/dL Critically low 40-60 [facility] Comment on above: Performed By: #### R ENLISSY, LIPID #### [facility] [address] [address] [address] Keeley Hoskins Cholesterol in LDL [Mass/Vol] 69.2 mg/dL Normal [facility] Comment on above: Performed By: #### R ENAL, LIPID #### [facility] [address] [address] [address] Keeley Hoskins Cholesterol.total/ Cholesterol in HDL [Mass ratio] 4.7 {ratio} Normal [facility] Comment on above: Performed By: #### R ENAL, LIPID #### [facility] [address] [address] [address] Keeley Hoskins HDL NORMAL > or = 60 mg/dl - LO W CARDIOVASCULAR RISK <40 mg/dl - HIGH CARDIOVASCULAR RISK Normal [facility] Comment on above: Performed By: #### R ENLISSY, LIPID #### [facility] [address] [place] [address] Dr. Keeley Hoskins LDL CALC NORMAL SEE BELOW Normal [facility] Comment on above: Result Comment: <100 mg/dl OPTIMAL 100 - 129 mg/dl NEAR OR ABOVE OPTIMAL 130 - 159 mg/dl BORDERLINE HIGH 160 - 189 mg/dl HIGH >190 mg/dl VERY HIGH Performed By: #### R ENLISSY, LIPID #### [facility] [address] [address] [address] Keeley Hoskins Triglyceride [Mass/Vol] 204 mg/dL Critically high <=150 [facility] Comment on above: Performed By: #### R ENLISSY, LIPID #### [facility] [address] [address] [address] Keeley Hoskins VLDL CALC 40.8 mg/dL Normal [facility] Comment on above: Performed By: #### R ENLISSY, LIPID #### [facility] [address] [address] [address] Keeley Hoskins MICROALB CREAT RATIO RANDOMo n 03-30-2022 mALB 8.3 mg/L Normal <=30.0 [facility] Comment on above: Performed By: #### M CRR #### [facility] [address] [address] [address] Keeley IVANB CR RATIO 466.0 mg/g Critically high 0.0-29.9 [facility] Comment on above: Performed By: #### M CRR #### [facility] [address] [address] [address] Keeley Hoskins MALB CR RATIO RANGE SEE BELOW Normal [facility] Comment on above: Result Comment: NO M ICROALBUMINURIA 0-29 MG/G CLINICAL MICROALBUMINURIA 30-300 MG/G MACROALBUMINURIA >300 MG/G Performed By: #### M CRR #### [facility] [address] [address] [address] Keeley Hoskins URINE CREAT 17.81 mg/dL Critically low 20.00-300.00 [facility] Comment on above: Performed By: #### M CRR #### [facility] [address] [place] [address] Dr. Keeley Hoskins RENAL FUNCTION PANELon 03-30 Albumin [Mass/Vol] 4.2 g/dL Normal 3.4-5.0 [facility] Comment on above: Performed By: #### R ENAL, LIPID #### [facility] [address] [address] [address] Keeley Hoskins Calcium [Mass/Vol] 9.2 mg/dL Normal 8.5-10.1 [facility] Comment on above: Performed By: #### R ENAL, LIPID #### [facility] [address] [address] [address] Keeley Hoskins Chloride [Moles/Vol] 98 mmol/L Normal 98-107 [facility] Comment on above: Performed By: #### R ENAL, LIPID #### [facility] [address] [address] [address] Keeley Hoskins CO2 [Moles/Vol] 28.6 mmol/L Normal 21.0-32.0 [facility] Comment on above: Performed By: #### R ENAL, LIPID #### [facility] [address] [address] [address] Keeley Hoskins Creatinine [Mass/Vol] 1.17 mg/dL Critically high 0.55-1.02 [facility] Comment on above: Performed By: #### R ENAL, LIPID #### [facility] [address] [address] [address] Keeley Hoskins EGFR-AF IRISH >60 Normal >=60 [facility] Comment on above: Performed By: #### R ENAL, LIPID #### [facility] [address] [address] [address] Keeley Hoskins EGFR-NON AF IRISH 50 mL/min/1.73m2 Critically low >=60 [facility] Comment on above: Performed By: #### R ENAL, LIPID #### [facility] [address] [place] [address] Dr. Keeley Hoskins Glucose [Mass/Vol] 212 mg/dL Critically high 74-106 [facility] [place] Comment on above: Performed By: #### R ENAL, LIPID #### [facility] [address] [place] [address] Dr. Keeley Hoskins Phosphate [Mass/Vol] 4.0 mg/dL Normal 2.6-4.7 [facility] Comment on above: Performed By: #### R ENAL, LIPID #### [facility] [address] [place] [address] Dr. Keeley Hoskins Potassium [Moles/Vol] 4.1 mmol/L Normal 3.5-5.1 [facility] Comment on above: Performed By: #### R ENAL, LIPID #### [facility] [address] [place] [address] Dr. Keeley Hoskins Sodium [Moles/Vol] 136 mmol/L Normal 136-145 [facility] Comment on above: Performed By: #### R ENAL, LIPID #### [facility] [address] [place] [address] Dr. Keeley Hoskins Urea nitrogen [Mass/Vol] 16.0 mg/dL Normal 7.0-18.0 [facility] Comment on above: Performed By: #### R ENAL, LIPID #### [facility] [address] [place] [address] Dr. Keeley Hoskins VITAMIN D 25 OHon 03-30-2022 VIT D 25-OH 33.8 ng/mL Normal [facility] Comment on above: Performed By: #### V ITAD #### [facility] [address] [place] [address] Dr. Keeley Hoskins VIT D RANGES SEE BELOW Normal [facility] Comment on above: Result Comment: <20 ng/mL Vit D deficient 20 - <30 ng/mL Vit D insufficient 30 - 100 ng/mL Vit D sufficient >100 ng/mL Potential Toxicity Performed By: #### V ITAD #### [facility] [address] [place] [address] Dr. Keeley Hoskins BNPon 03-16-2022 Natriuretic peptide B (Bld) [Mass/Vol] 20.0 pg/mL Normal <=450.0 [facility] Comment on above: Performed By: #### T 7, TSH, CMP, BNP #### [facility] [address] [place] [address] Dr. Keeley Hoskins CBC AUTO DIFFon 03-16-2022 BASO # 0.1 103/ul Normal 0.0-0.1 [facility] Comment on above: Performed By: #### R ENAL, LIPID #### [facility] [address] [place] [address] Dr. Keeley Hoskins Basophils/100 WBC (Bld) 1.0 % Normal 0.2-2.0 [facility] Comment on above: Performed By: #### R ENAL, LIPID #### [facility] [address] [place] [address] Dr. Keeley Hoskins EO # 0.1 103/ul Normal 0.0-0.7 [facility] Comment on above: Performed By: #### R ENAL, LIPID #### [facility] [address] [place] [address] Dr. Keeley Hoskins Eosinophils/100 WBC (Bld) 1.8 % Normal 0.9-7.0 [facility] Comment on above: Performed By: #### R ENAL, LIPID #### [facility] [address] [place] [address] Dr. Keeley Hoskins Erythrocyte distribution width (RBC) [Ratio] 12.3 % Normal 11.0-15.0 [facility] Comment on above: Performed By: #### R ENLISSY, LIPID #### [facility] [address] [place] [address] Dr. Keeley Hoskins Hematocrit (Bld) [Volume fraction] 37.3 % Normal 36.0-48.0 [facility] Comment on above: Performed By: #### R ENLISSY, LIPID #### [facility] [address] [place] [address] Dr. Keeley Hoskins Hemoglobin (Bld) [Mass/Vol] 12.7 g/dL Normal 12.0-16.0 [facility] Comment on above: Performed By: #### R ENLISSY, LIPID #### [facility] [address] [place] [address] Dr. Keeley Hoskins IG # 0.04 10e3/ul Critically high 0.00-0.03 [facility] Comment on above: Performed By: #### R ENLISSY, LIPID #### [facility] [address] [place] [address] Dr. Keeley Hoskins IG % 0.6 % Critically high 0.0-0.5 [facility] Comment on above: Performed By: #### R ENLISSY, LIPID #### [facility] [address] [place] [address] Dr. Keeley Hoskins LYMPH # 1.8 103/ul Normal 1.2-3.8 [facility] Comment on above: Performed By: #### R ENLISSY, LIPID #### [facility] [address] [place] [address] Dr. Keeley Hoskins Lymphocytes/100 WBC (Bld) 26.4 % Normal 20.5-60.0 [facility] Comment on above: Performed By: #### R ENLISSY, LIPID #### [facility] [address] [place] [address] Dr. Keeley Hoskins MANUAL DIFF REQ NO Normal [facility] Comment on above: Performed By: #### R ENLISSY, LIPID #### [facility] [address] [place] [address] Dr. Keeley Hoskins MCH (RBC) [Entitic mass] 28.0 pg Normal 26.7-34.0 [facility] Comment on above: Performed By: #### R ENAL, LIPID #### [facility] [address] [place] [address] Dr. Keeley Hoskins MCHC (RBC) [Mass/Vol] 34.0 g/dL Normal 29.9-35.2 [facility] Comment on above: Performed By: #### R ENAL, LIPID #### [facility] [address] [place] [address] Dr. Keeley Hoskins MCV (RBC) [Entitic vol] 82.2 fL Normal 81.0-99.0 [facility] Comment on above: Performed By: #### R ENAL, LIPID #### [facility] [address] [place] [address] Dr. Keeley Hoskins MONO # 0.5 103/ul Normal 0.3-0.8 [facility] Comment on above: Performed By: #### R ENAL, LIPID #### [facility] [address] [place] [address] Dr. Keeley Hoskins Monocytes/100 WBC (Bld) 6.6 % Normal 1.7-12.0 [facility] Comment on above: Performed By: #### R ENAL, LIPID #### [facility] [address] [place] [address] Dr. Keeley Hoskins NEUT # 4.4 103/ul Normal 1.4-6.5 [facility] Comment on above: Performed By: #### R ENAL, LIPID #### [facility] [address] [place] [address] Dr. Keeley Hoskins Neutrophils/100 WBC (Bld) 63.6 % Normal 43.0-75.0 [facility] Comment on above: Performed By: #### R ENAL, LIPID #### [facility] [address] [place] [address] Dr. Keeley Hoskins Platelet mean volume (Bld) [Entitic vol] 10.4 fL Normal 9.5-13.5 [facility] Comment on above: Performed By: #### R ENAL, LIPID #### [facility] [address] [address] [address] Keeley Hoskins PLT 283 103/ul Normal 150-450 [facility] Comment on above: Performed By: #### R ENAL, LIPID #### [facility] [address] [address] [address] Keeley Hoskins RBC 4.54 106/ul Normal 4.20-5.40 [facility] Comment on above: Performed By: #### R ENAL, LIPID #### [facility] [address] [address] [address] Keeley Hoskins WBC 6.9 103/ul Normal 4.0-11.0 [facility] Comment on above: Performed By: #### R ENAL, LIPID #### [facility] [address] [place] [address] Dr. Keeley Hoskins FREE THYROXINE INDEX T7on FTI 2.91 Normal 1.30-4.50 [facility] Comment on above: Performed By: #### R ENAL, LIPID #### [facility] [address] [address] [address] Keeley Hoskins T3U 30.0 % Normal 30.0-39.0 [facility] Comment on above: Performed By: #### R ENAL, LIPID #### [facility] [address] [address] [address] Keeley Hoskins T4 [Mass/Vol] 9.70 ug/dL Normal 4.80-13.90 [facility] Comment on above: Performed By: #### R ENAL, LIPID #### [facility] [address] [address] [address] Keeley Hoskins IRONon 03-16-2022 Iron [Mass/Vol] 72.0 ug/dL Normal 50.0-170.0 [facility] Comment on above: Performed By: #### I MARY #### [facility] [address] [address] [address] Keeley Hoskins PROF 14(COMP METB)on 022 Albumin [Mass/Vol] 3.9 g/dL Normal 3.4-5.0 [facility] Comment on above: Performed By: #### T 7, TSH, CMP, BNP #### [facility] [address] [address] [address] Keeley Hoskins Albumin/Globulin [Mass ratio] 1.1 {ratio} Normal [facility] Comment on above: Performed By: #### T 7, TSH, CMP, BNP #### [facility] [address] [address] [address] Keeley Hoskins ALP [Catalytic activity/Vol] 143 U/L Critically high 46-116 [facility] Comment on above: Performed By: #### T 7, TSH, CMP, BNP #### [facility] [address] [place] [address] Dr. Keeley Hoskins ALT [Catalytic activity/Vol] 43 U/L Normal 14-59 [facility] Comment on above: Performed By: #### T 7, TSH, CMP, BNP #### [facility] [address] [place] [address] Dr. Keeley Hoskins Anion gap [Moles/Vol] 15.6 mmol/L Normal [facility] Comment on above: Performed By: #### T 7, TSH, CMP, BNP #### [facility] [address] [place] [address] Dr. Keeley Hoskins AST [Catalytic activity/Vol] 23 U/L Normal 15-37 [facility] Comment on above: Performed By: #### T 7, TSH, CMP, BNP #### [facility] [address] [place] [address] Dr. Keeley Hoskins Bilirubin [Mass/Vol] 0.6 mg/dL Normal 0.2-1.0 [facility] Comment on above: Performed By: #### T 7, TSH, CMP, BNP #### [facility] [address] [place] [address] Dr. Keeley Hoskins Calcium [Mass/Vol] 9.2 mg/dL Normal 8.5-10.1 [facility] Comment on above: Performed By: #### T 7, TSH, CMP, BNP #### [facility] [address] [address] [address] Keeley Hoskins Chloride [Moles/Vol] 96 mmol/L Critically low 98-107 [facility] Comment on above: Performed By: #### T 7, TSH, CMP, BNP #### [facility] [address] [address] [address] Keeley Hoskins CO2 [Moles/Vol] 25.1 mmol/L Normal 21.0-32.0 [facility] Comment on above: Performed By: #### T 7, TSH, CMP, BNP #### [facility] [address] [address] [address] Keeley Hoskins Creatinine [Mass/Vol] 1.14 mg/dL Critically high 0.55-1.02 [facility] Comment on above: Performed By: #### T 7, TSH, CMP, BNP #### [facility] [address] [address] [address] Keeley Hoskins EGFR-AF IRISH >60 Normal >=60 [facility] Comment on above: Performed By: #### T 7, TSH, CMP, BNP #### [facility] [address] [address] [address] Keeley Hoskins EGFR-NON AF IRISH 52 mL/min/1.73m2 Critically low >=60 [facility] Comment on above: Performed By: #### T 7, TSH, CMP, BNP #### [facility] [address] [address] [address] Keeley Hoskins Globulin (S) [Mass/Vol] 3.4 g/dL Normal [facility] Comment on above: Performed By: #### T 7, TSH, CMP, BNP #### [facility] [address] [address] [address] Keeley Hoskins Glucose [Mass/Vol] 438 mg/dL Critically high 74-106 [facility] [place] Comment on above: Performed By: #### T 7, TSH, CMP, BNP #### [facility] [address] [address] [address] Keeley Hoskins Potassium [Moles/Vol] 4.7 mmol/L Normal 3.5-5.1 [facility] Comment on above: Performed By: #### T 7, TSH, CMP, BNP #### [facility] [address] [place] [address] Dr. Keeley Hoskins Protein [Mass/Vol] 7.3 g/dL Normal 6.4-8.2 [facility] Comment on above: Performed By: #### T 7, TSH, CMP, BNP #### [facility] [address] [place] [address] Dr. Keeley Hoskins Sodium [Moles/Vol] 132 mmol/L Critically low 136-145 [facility] Comment on above: Performed By: #### T 7, TSH, CMP, BNP #### [facility] [address] [place] [address] Dr. Keeley Hoskins Urea nitrogen [Mass/Vol] 17.0 mg/dL Normal 7.0-18.0 [facility] Comment on above: Performed By: #### T 7, TSH, CMP, BNP #### [facility] [address] [place] [address] Dr. Keeley Hoskins Urea nitrogen/Creatinin e [Mass ratio] 14.9 mg/mg Normal [facility] Comment on above: Performed By: #### T 7, TSH, CMP, BNP #### [facility] [address] [place] [address] Dr. Keeley Hoskins TSHon 03-16-2022 TSH 2.240 uIU/mL Normal 0.358-3.740 [facility] Comment on above: Performed By: #### R ENAL, LIPID #### [facility] [address] [place] [address] Dr. Keeley Hoskins KNEE RIGHT 3 [facility] 1 [address] [facility] Department of Radiology [address] [place] [phone] ======== Patient Name: YANICK JEFFREY : 1980 Sex: F Age: Race: White Pt. Location: 84 Patient Status: O Ordered Date: 06/13/2021 9:05:00 AM Completed Date: 06/13/2021 09:13 AM Requesting Provider: TONYA CENTENO Attending Provider: TONYA CENTENO Report Copy To: Signs & Symptoms: M25.561 Pain in right knee I10 History: Comments: standing , Weight Bearing?: Y Exam: KNEE RIGHT 3 [facility] ======== KNEE RIGHT 3 [facility] 06/13/2021 9:13 AM CLINICAL INDICATIONS: M25.561 Pain [...] pathology Electronically signed: Toyin Juan. Transcribed by: [email or web address], User Resident: Electronically Signed by: TOYIN JUAN @ 06/13/2021 11:[address] [facility] Comment on above: Order Comment: stand ing , Weight Bearing?: Y KNEE RIGHT 3 [facility] KNEE RIGHT 3 [facility] Department of Radiology [address] [place] [phone] ======== Patient Name: YANICK JEFFREY : 1980 Sex: F Age: Race: White Pt. Location: 84 Patient Status: O Ordered Date: 11/15/2020 10:15:00 AM Completed Date: 11/15/2020 10:33 AM Requesting Provider: TONYA CENTENO Attending Provider: TONYA CENTENO Report Copy To: Signs & Symptoms: M25.561 Pain in right knee I10 History: [place] Comments: evaluate Exam: KNEE RIGHT 3 [facility] ======== KNEE RIGHT 3 S 11/15/2020 10:33 AM CLINICAL INDICATIONS: M25.561 Pain [...] reports Electronically signed: Naila Puentes. Transcribed by: [email or web address], User Resident: GREGG LEMONS Electronically Signed by: ANILA PUENTES @ 11/15/2020 11:25 AM I personally read this/these film(s) with this resident Normal [facility] Comment on above: Order Comment: evalu ate TIBIA FIBULA RIGHTon [address] [facility] Department of Radiology [address] [place] [phone] ======== Patient Name: YANICK JEFFREY : 1980 Sex: F Age: Race: White Pt. Location: Patient Status: O Ordered Date: 11/15/2020 9:55:00 AM Completed Date: 11/15/2020 10:33 AM Requesting Provider: TONYA CENTENO Attending Provider: TONYA CENTENO Report Copy To: Signs & Symptoms: S82.142A Displaced bicondylar fracture of right tibia, init I10 History: [place] Comments: evaluate Exam: TIBIA FIBULA RIGHT ======== Addendum Begins Osseous irregularity of the lateral [...] abnormality. Electronically signed: Naila Puentes. Transcribed by: [email or web address], User Resident: Electronically Signed by: NAILA PUENTES @ 11/15/2020 11:[address] [facility] Comment on above: Order Comment: evalu ate Vital Signs Date Time Vital Sign Value Performing Clinician Yaima jung 06-03-2024 16:01-0400 Blood Pressure Location Kobe ROBERTSON [facility] [place] 06-03-2024 16:01-0400 Diastolic blood pressure 70 mm[Hg] Kobe ROBERTSON [facility] [place] 06-03-2024 16:01-0400 Heart rate 72 /min Kobe ROBERTSON [facility] [place] 06-03-2024 16:01-0400 Respiratory rate 16 /min [facility] 06-03-2024 16:01-0400 Systolic blood pressure 132 mm[Hg] Kobe ATKINSONL [facility] [place] Encounters Encounter Date Encounter Type Care Provider Facility Start: 06-18-2024 ambulatory Kobe ROBERTSON Facility :[facility] Start: 06-03-2024 End: 06-03-2024 ambulatory Kobe ROBERTSON Facility:[facility] Start: 06-03-2024 End: 06-03-2024 Patient encounter procedure Kobe ROBERTSON [facility] [place] Start: 05-20-2024 ambulatory Castillo Rollins acility:[facility] Start: 01-23-2024 End: 01-23-2024 ambulatory THALIA H TIMMIS Not Available Start: 12-24-2023 End: 12-24-2023 ambulatory THALIA H TIMMIS Not Available Start: 01-22-2023 End: 01-23-2023 [...] Start: 10-15-2020 End: 11-01-2020 ambulatory TONYA CENTENO Facility:[facility] Procedures Date Procedure Procedure Detail Performing Clinician Start: 06-08-2021 Colonoscopy Kobe NI LL Arthroscopic repair of rotator cuff Kobe NILL Bladder excision Kobe NIL L Comment on above: multiple section Kobe NIL L section Kobe NIL L Cholecystectomy [place] NILL Decompression of med jesusita nerve Kobe NILL Comment on above: right Excision of vocal co rd nodule Kobe NILL Insertion of insulin pump Nohelia be NILL Payers Date Payer Category Payer Self-pay 1980 Unknown [id number] 2.16.8 [id number] 1980 Unknown [id number] 2.16.84 [id number] 1980 Unknown [id number] 2.16.84 [id number] 1980 Unknown [id number] 2.16.84 [id number] 1980 Unknown [id number] 2.16.84 [id number] 1980 Unknown [id number] 2.16.84 0.1.182051.3.579.2.593 1980 Unknown [id number] 2.16.84 0.1.747675.3.579.2.593 1980 Unknown [id number] 2.16.84 0.1.464359.3.579.2.593 1980 Unknown [id number] 2.16.84 0.1.563980.3.579.2.593 1980 Unknown [id number] 2.16.84 0.1.726139.3.579.2.593 1980 Unknown [id number] 2.16.84 0.1.805402.3.579.2.1259 1980 Unknown [id number] 2.16.84 0.1.666268.3.579.2.1259 1980 Unknown [id number] 2.16.8 40.1.958472.3.579.2.727 1980 Unknown [id number] 2.16.8 [id number] 1961 Medicaid [id number] 1961 Private Health Insurance [id number] Unknown [id number] 2.16.8 [id number] Social History Date Type Detail Facility Start: 06-03-2024 Tobacco smoking status Ex-smoker (fi nding) [facility] Tobacco smoking status Never [facility] Sex Assigned At Female [facility] Functional Status Date Assessment Result Facility 06-03-2024 Functional Status N/A [facility] Clinical Note 06-03-2024 Note Date & Type Note Facility 06-03-2024 Note General Surgery Offi ce/Clinic Note Chief Complaint consultation for skin tags and skin lesion HPI Staff 43 year old female presents on consultation from Dr. Cortez for skin lesion left hand and multiple skin tags. History of Present Illness 43 yo female with h/o type 1 DM, htn, hypothyroidism, migraines, DVT, neuropathy, seizure d/o, bipolar d/o, cervical disc disease, essential tremor, referred for skin tags, and skin lesion left hand; patient reports long h/o raised, irregular lesion dorsum of left hand at base of thumb; enlarged and became darker; dark area fell off several weeks ago, no bleeding; also multiple enlarging skin tags of neck and face, > 50; sore at times; on baby asa, no NSAID use; no tobacco use. Review of Systems PHQ Score Initial Depression Screen Score: 0 SCORE ROS - Provider Constitutional: no fever, no sweats, no weight loss. Eyes: no glasses, no blurred vision, no visual loss. ENMT: no dentures, no hoarseness, no swallowing difficulties, no hearing loss, no ear infection(s), no nose bleeds. Cardiovascular: normal blood pressure, no chest pain, regular heartbeat, [...] or noncontributory. Physical Exam Vitals & Measurements HR: 72(Peripheral) RR: 16 BP: 132/70 HT: 66 in HT: 167.64 cm WT: 103 kg WT: 226.6 lb BMI: 36.65 skin: dorsum left hand with 5 mm raised, irregular, keratotic lesion, no pigmentation change or ulceration; multiple skin tags on neck, > 50; large skin tag medial to right eye. Assessment/Plan 1. Neoplasm of uncertain behavior of skin of hand (D48.5: Neoplasm of uncertain behavior of skin) plan excisional biopsy under local anesthesia in office, informed consent obtained. 2. Skin tags, multiple acquired (L91.8: Other hypertrophic disorders of the skin) plan excision under local anesthesia in office, likely 15-20 at a time; informed consent obtained. Follow-up No qualifying data available Problem List/Past Medical History Ongoing Anxiety Bipolar I disorder BMI 36.0-36.9,adult Cervical disc disease Chronic laryngitis Cigarette smoker Diabetes type I Diastasis recti Epidermal cyst of face Essential tremor. 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 Mixed anxiety and depressive disorder Mucocele of salivary gland Neoplasm of uncertain behavior of skin of hand 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 Obesity (BMI 30-39.9) Seizure disorder Skin tags, multiple acquired Sleep apnea Tubular adenoma of colon Historical Abdominal bloating Cervical radiculopathy Lesion of vocal cord Postprandial epigastric pain Postprandial nausea Procedure/Surgical History Colonoscopy (06/08/2021), Arthroscopic repair of rotator cuff., Caesarean section, Carpal tunnel release, section, Cholecystectomy, Cystectomy, Excision of vocal cord nodule, Insertion of insulin pump, Salpingo-oophorectomy, complete or partial, unilateral or bilateral (separate procedure), Total abdominal hysterectomy (corpus and cervix), with or without removal of tube(s), with or without removal of ovary(s);. Medications Albuterol (Eqv-ProAir HFA), 2 puff(s), Inhalation, q6hr, PRN amLODIPine 5 mg Tab, 5 mg= 1 tab(s), Oral, Daily aspirin 81 mg Oral EC Tab, 81 mg= 1 tab(s), Oral, Daily CeleXA 40 mg Tab, 40 mg= 1 tab(s), Oral, Daily famotidine 20 mg Tab, 20 mg= 1 tab(s), Oral, BID ferrous sulfate 325 mg Tab, 325 mg= 1 tab(s), Oral, BID Humulin R (Concentrated) 500 units/mL subcutaneous solution, See Instructions Lasix 80 mg Tab, 80 mg= 1 tab(s), Oral, Daily levetiracetam 500 mg Tab, 500 mg= 1 tab(s), Oral, BID levothyroxine 100 mcg (0.1 mg) Tab, 100 mcg= 1 tab(s), Oral, Daily LORazepam 1 mg Tab, 1 mg= 1 tab(s), Oral, BID, PRN losartan 100 mg Tab, 100 mg= 1 tab(s), Oral, Daily metformin 500 mg Tab, 500 mg= 1 tab(s), Oral, Daily omeprazole 40 mg Cap-DR, 40 mg= 1 cap(s), Oral, Daily potassium chloride 10 mEq (more content not included)... [facility] Comment on above: Result Comment: Elec tronically Signed By: AILYN CHENG, Kobe Davidson\.br\Date and Time Signed: 06/03/24 16:38 EDT Clinical Note 04-17-2022 Note Date & Type [...] 85% of maximum predicted heart rate. [facility] Evaluation + Plan note Note Date & Type Note Facility Evaluation + Plan note Future Appointments Appointment Date:06/18/2024 03:00:00 PM Scheduled Provider:Kobe ROBERTSON MD Location:[facility] Appointment Type:[facility] [address] [facility] course Narrative Note Date & Type Note Facility Hospital course Narrative No data available for this section [facility] Discharge instructions Note Date & Type Note Facility Hospital Discharge instructions No data available for this section [facility] Progress note Note Date & Type Note Facility Progress note No data available for this section [facility] Summary Purpose Family History No Family History Records FoundNo Family History Records FoundNo Family History Records FoundNo Family History Records Found No data available for this section No Family History Records Found Advance Directives No Advanced Directives Records FoundNo Advanced Directives Records FoundNo Advanced Directives Records FoundNo Advanced Directives Records FoundNo Advanced Directives Records Found Additional Source Comments INFORMATION SOURCE (unrecogn ized section and content) DATE CREATED AUTHOR 10/02/2021 [facility] DATE CREATED AUTHOR AUTHOR'S ORGANIZ ATION 01/23/2023 [facility] DATE CREATED AUTHOR AUTHOR'S ORGANIZ ATION 01/25/2024 [facility] EPIC DATE CREATED AUTHOR AUTHOR'S ORGANIZ ATION 05/21/2024 [facility] DATE CREATED AUTHOR AUTHOR'S ORGANIZ ATION 06/06/2024 [facility] Patient Care team informatio n (unrecognized section and content) Personnel Name: Lorenzo Cortez MD Address: Address: [address] [place] [address] FOR RECORDS PERTAINING TO PATIENTS WHO ARE [...] BE BASED ON THE PRIMARY CLINICAL RECORDS. [facility] [employer] [facility]. provides no warranty or guarantee of the accuracy or completeness of information in this document.
== END 2024-06-10 09:39 | disposition home or self-care (01) ==
LOC: US 09:38
PROVIDERS: PCP Family Medicine; Visit Provider Family Medicine
DX: R22.1 Localized swelling, mass and lump, neck (principal)
CPT/HCPCS: 76536

== ENCOUNTER 2024-08-26 11:40 | Outpatient (OUT) | payer MEDICARE, MEDICAID, SELFPAY ==
--- OUTSIDE RECORDS SUMMARY | 2024-08-26 11:55 | XMS_ITS | CCD ---
Author Organization [facility] Care Team Providers Care Neurodiagnostic Tech Name Role Phone NOÉHEIMCARMENIL Attending Unavailable EBRAHEIM TONYA Admitting Unavailable UNKNOWN, [...] Unavailable HOY ., DR VENTURA Consulting Unavailable [facility], DR FLORA Davidson Consulting Unavailable HOY ., DR VENTURA Admitting Unavailable HOY ., DR VENTURA Primary Care Unavailable HOY ., DR VENTURA Attending Unavailable HOY ., DR VENTURA Consulting Unavailable [place], DR EDNA Carlson Consulting Unavailable HOY ., [...] Admitting Unavailable CARLOS, AHWHITNEYD Attending Unavailable CARLOS, AHMAD Consulting Unavailable HOY ., DR VENTURA Primary Care Unavailable HOY ., DR VENTURA Attending Unavailable DIEGO ., DR VENTURA Admitting Unavailable DIEGO ., DR VENTURA Consulting Unavailable [place], DR EDNA Carlson Consulting Unavailable Lorenzo Cortez Primary Care Physician [phone] THALIA METCALF Attending Unavailable LORENZO CORTEZ Referring Unavailable THALIA METCALF Attending Unavailable CARLOS, TREVONMABrice F Attending Unavailable ZAY GONZALEZ F Referring Unavailable Lorenzo Cortez MD Primary Care Provider [phone] NILL, Kobe R Attending Unavailable NILL, Kobe R Attending Unavailable NILL, Kobe R Attending Unavailable Lorenzo Cortez Referring Unavailable NILL, Kobe R Admitting Unavailable NILL, Kobe R Attending Unavailable Castillo Choudhary Attending Unavailab Castillo Matt Admitting Unavailab Lorenzo Benito Primary Care Unavailable Allergies Allergy Classification Reported Allergen(s) Allergy Type Date of Onset Reaction(s) Facility (2 sources) Acetaminophen / HYDROcodone; Translations: [Vicodin] Drug Allergy 3 [facility] Repository (2 sources) Acetaminophen / HYDROcodone; Translations: [Lortab] Drug Allergy 6 [facility] Repository (1 source) Adhesive agent Drug allergy (disorder) 3 [facility] Rep[facility] (2 sources) Amino Acids; Translations: [lisinopril] Drug Allergy 6 [facility] Rep[facility] (2 sources) lamoTRIgine; Translations: [LaMICtal] Drug Allergy 3 [facility] Repository (2 sources) Morphine; Translations: [morphine] Drug Allergy 3 [facility] Rep[facility] (2 sources) OXcarbazepine; Translations: [Trileptal] Drug Allergy 3 [facility] Repository (1 source) Penicillins Drug allergy (disorder) 3 [facility] Rep[facility] (2 sources) Valproate; Translations: [Depakote] Drug Allergy 3 [facility] (8 sources) Acetaminophen / HYDROcodone; Translations: [acetaminophen-hy drocodone] Drug Allergy Edema of pharynx (disorder) [facility] (4 sources) lamoTRIgine; Translations: [lamotrigine] Drug Allergy Cutaneous eruption (morphologic abnormality) [facility] (4 sources) Lisinopril; Translations: [lisinopril] Drug Allergy Edematous skin (disorder) [facility] (7 sources) Morphine; Translations: [morphine] Drug Allergy 4 Vomiting (disorder), GI intolerance [facility] (4 sources) OXcarbazepine; Translations: [oxcarbazepine] Drug Allergy Edema of pharynx (disorder) [facility] (5 sources) Penicillin; Translations: [penicillin] Drug Allergy Cutaneous eruption (morphologic abnormality) [facility] (4 sources) Valproate; Translations: [divalproex sodium] Drug Allergy Edema of pharynx (disorder) [facility] (3 sources) Codeine Drug Allergy 4 [facility] (3 sources) HYDROcodone Drug Allergy 4 [facility] Work Phone: (3 sources) Lamotrigine Allergy to substance 4 Rash [facility] (3 sources) Oxcarbazepine Allergy to substance 4 [facility] (3 sources) Penicillin G Drug Allergy 4 Hives [facility] (3 sources) Penicillins Propensity to adverse reactions 4 [facility] (3 sources) Valproate Drug Allergy 4 [facility] Medications Current Medications Medication Drug Class(es) Dates Sig (Normalized) Sig (Original) Albuterol (7 sources) beta2-Adrenergic Agonist Start: 05-28-2024 take 2 puff(s) by inhalation every six hours Albuterol (Eqv-ProAir HFA) 2 puff(s), Inhalation, q6hr Shortness of breath or wheezing, Refill(s) 0 Start Date: 05/28/24 Status: Ordered take 2 puff(s) by in halation every six hours albuterol HFA (Ventolin HFA) 90 mcg/act inhaler Inhale 2 puffs every 6 (six) hours if needed Active amLODIPine 5 mg oral tablet (6 sources) Dihydropyridine Calcium Channel Elster Start: 05-28-2024 take 1 tablet by mouth once daily amLODIPine 5 mg Tab 5 mg = 1 tab(s), Oral, Daily, Refills(s) 0 Start Date: 05/28/24 Status: Ordered aspirin 81 mg delayed release oral tablet (7 sources) Platelet Aggregation Inhibitor, Nonsteroidal Anti-inflammatory Drug Start: 05-20-2021 take 1 tablet by mouth once daily aspirin 81 mg Oral EC Tab 81 mg = 1 tab(s), Oral, Daily, Refills(s) 0 Start Date: 05/20/21 Status: Ordered 24 hr buPROPion hydrochloride 300 mg extended release oral tablet (7 sources) Aminoketone Start: 03-27-2019 take 1 tablet by mouth once daily Wellbutrin XL 300 mg/24 hours Tab-ER 300 mg = 1 tab(s), Oral, Daily Start Date: 03/27/19 Status: Ordered citalopram 40 mg oral tablet (7 sources) Serotonin Reuptake Inhibitor Start: 05-28-2024 take 1 tablet by mouth once daily CeleXA 40 mg Tab 40 mg = 1 tab(s), Oral, Daily, Refills(s) 0 Start Date: 05/28/24 Status: Ordered take 2 tablets by mouth once latasha ly citalopram (CeleXA) 20 MG tablet Take 40 mg by mouth 1 (one) time each day at the same time Active ergocalciferol 1.25 mg oral capsule (3 sources) Provitamin D2 Compound take 1 tablet by mouth every week Vitamin D, Ergocalciferol, 87425 units capsule Take 1 tablet by mouth 1 (one) time per week Active famotidine 20 mg oral tablet (7 sources) Histamine-2 Receptor Antagonist Start: 03-27-20 take 1 tablet by mouth twice daily famotidine 20 mg Tab 20 mg = 1 tab(s), Oral, BID Start Date: 03/27/19 Status: Ordered take 1 tablet by mouth once blake y famotidine (Pepcid) 20 MG tablet Take 20 mg by mouth Daily Active ferrous sulfate 325 mg oral tablet (4 sources) Start: 05-28-2024 take 1 tablet by mouth twice daily ferrous sulfate 325 mg Tab 325 mg = 1 tab(s), Oral, BID, Refills(s) 0 Start Date: 05/28/24 Status: Ordered 120 actuat fluticasone propionate 0.23 mg/actuat / salmeterol 0.021 mg/actuat metered dose inhaler (3 sources) Corticosteroid, beta2-Adrenergi c Agonist take 2 puff(s) by inhalation in the morning fluticasone-salmet ana maria (Advair) 230-21 MCG/ACT inhaler Inhale 2 puffs in the morning and 2 puffs before bedtime. Rinse mouth with water after use to reduce aftertaste and incidence of candidiasis. Do not swallow.. 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 (CMS/HCC) CHANGE POD EVERY 24 HOURS DIRECTED 90 each 3 06/10/2024 Active insulin, regular, human 500 unt/ml injectable solution (9 sources) Insulin Start: 06-23-2024 inject 450 [IU] into the eye(s) once insulin regular (HumuLIN R) 500 UNIT/ML CONCENTRATED injection Indications: 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 (CMS/HCC) USE 450 units TOTAL daily per insulin pump 150 mL 3 06/23/2024 Active Start: 06-23-2024 inject 450 [IU] into the eye(s) once insulin regular (HumuLIN R) 500 UNIT/ML CONCENTRATED injection Indications: 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 (CMS/HCC) USE 450 units TOTAL daily per insulin pump 150 mL 3 06/23/2024 Active Start: 06-10-2024 End: 06-23-2024 inject 450 [IU] into the eye(s) once insulin regular (HumuLIN R) 500 UNIT/ML CONCENTRATED injection Indications: 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 (CMS/HCC) USE 450 units TOTAL daily per insulin pump 150 mL 3 06/10/2024 06/23/2024 Discontinued (Reorder) Start: 05-18-2021 Humulin R (Con centrated) 500 units/mL subcutaneous solution See Instructions, via insulin pump Start Date: 05/18/21 Status: Ordered levETIRAcetam 500 mg oral tablet (7 sources) Start: 05-18-2021 take 1 tablet by mouth twice daily levetiracetam 500 mg Tab 500 mg = 1 tab(s), Oral, BID Start Date: 05/18/21 Status: Ordered levothyroxine sodium 0.1 mg oral tablet (7 sources) l-Thyroxi ne Start: 05-18-2021 take 1 tablet by mouth once daily levothyroxine 100 mcg (0.1 mg) Tab 100 mcg = 1 tab(s), Oral, Daily Start Date: 05/18/21 Status: Ordered take 1 tablet by mouth before me altime levothyroxine (Synthroid) 100 MCG tablet Take 100 mcg by mouth in the morning. Take before meals. Active LORazepam 1 mg oral tablet (7 sources) Benzodiazepine Start: 03-27-2019 take 1 tablet by mouth twice daily as needed for anxiety LORazepam 1 mg Tab 1 mg = 1 tab(s), Oral, BID, PRN for anxiety Start Date: 03/27/19 Status: Ordered take 1 tablet by mouth every eig ht hours LORazepam (Ativan) 1 MG tablet Take 1 mg by mouth every 8 (eight) hours Active losartan potassium 100 mg oral tablet (7 sources) Angiotensin 2 Receptor Lester Start: 05-28-2024 take 1 tablet by mouth once daily losartan 100 mg Tab 100 mg = 1 tab(s), Oral, Daily, Refills(s) 0 Start Date: 05/28/24 Status: Ordered take 2 tablets by mouth once latasha ly losartan (Cozaar) 50 MG tablet Take 100 mg by mouth 1 (one) time each day at the same time Active take 1 tablet by mouth once blake y losartan (Cozaar) 50 MG tablet Take 50 mg by mouth 1 (one) time each day at the same time Active metFORMIN hydrochloride 500 mg oral tablet (9 sources) Biguanide Start: 06-23-2024 End: 2024 take 2 tablets by mouth in the morning metFORMIN (Glucophage) 500 MG tablet Indications: Type 1 diabetes mellitus with hyperglycemia (HCC) (CMS/HCC) Take 2 tablets (1,000 mg) by mouth in the morning and 2 tablets (1,000 mg) in the evening. Take with meals. 360 tablet 06/23/2024 2024 Active Start: 03-27-2019 take 1 tablet by liz th once daily metformin 500 mg Tab 500 mg = 1 tab(s), Oral, Daily Start Date: 03/27/19 Status: Ordered omeprazole 40 mg delayed release oral capsule (7 sources) Proton Pump Inhibitor Start: 03-27-2019 take 1 capsule by mouth once daily omeprazole 40 mg Cap-DR 40 mg = 1 cap(s), Oral, Daily Start Date: 03/27/19 Status: Ordered risperiDONE 2 mg oral tablet (7 sources) Atypical Antipsychotic Start: 03-27-2019 take 1 tablet by mouth at bedtime Risperdal 2 mg Tab 2 mg = 1 tab(s), Oral, Bedtime Start Date: 03/27/19 Status: Ordered simvastatin 20 mg oral tablet (7 sources) HMG-CoA Reductase Inhibitor Start: 05-18-2021 take 1 tablet by mouth once daily at bedtime simvastatin 20 mg Tab 20 mg = 1 tab(s), Oral, Once a day (at bedtime) Start Date: 05/18/21 Status: Ordered Vitamin D (4 sources) Start: 04-09-2019 take 1 capsule by mouth every week Vitamin D = 1 cap(s), Oral, qWeek, Refills(s) 0 Start Date: 04/09/19 Status: Ordered Completed/Discontinued Medications Medication Drug Class(es) Dates Sig (Normalized) Sig (Original) potassium chloride 10 meq oral tablet (7 sources) Start: 03-27-2019 take 1 tablet by mouth twice daily potassium chloride 10 mEq ER Tab 10 mEq = 1 tab(s), Oral, BID Start Date: 03/27/19 Status: Ordered potassium chlori de CR (Klor-Con) 10 MEQ ER tablet 10 mEq in the morning and 10 mEq before bedtime. Active Problems Active Problems Problem Classification Problem Date Documented Da te Episodic/Chronic Abdominal pain (7 sources) Epigastric pain; Translations: [Epigastric pain] Onset: 05-28-2024 Episodic Administrative/social admission (2 sources) Patient encounter status; Translations: [Dietary counseling and surveillance] 06-23-2024 Episodic Anxiety disorders (11 sources) Anxiety; Translations: [Mixed anxiety and depressive disorder] Onset: 4 03-27-2019 Chronic Congestive heart failure; nonhypertensive (1 source) Unspecified diastolic (congestive) heart failure; Translations: [UNSPECIFIED DIASTOLIC HEART FAILURE] Onset: 3 Chronic Diabetes mellitus with complications (20 sources) 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; Translations: [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] Onset: 2 Chronic Diabetes mellitus without complication (12 sources) Type 1 diabetes mellitus; Translations: [Type 2 diabetes mellitus without complication] Onset: 2 05-20-2021 Chronic Diabetes mellitus without complication (2 sources) Insulin pump present; Translations: [Presence of insulin pump (external) (internal)] 06-23-2024 Episodic Diseases of mouth; excluding dental (8 sources) Mucocele of salivary gland; 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] Onset: 3 Episodic Epilepsy; convulsions (6 sources) Epilepsy; Translations: [Epilepsy, unspecified, not intractable, without status epilepticus] Onset: 2 12-18-2023 Chronic Epilepsy; convulsions (4 sources) Seizure disorder 03-27-2019 Episodic Esophageal disorders (10 sources) Gastroesophageal reflux disease; Translations: [Laryngopharyngeal reflux] Onset: 4 03-27-2019 Chronic Essential hypertension (14 sources) Essential (primary) hypertension; Translations: [Hypertensive disorder] Onset: 2 Chronic Genitourinary symptoms and ill-defined conditions (2 sources) Microalbuminuria; Translations: [Proteinuria, unspecified] 06-23-2024 Episodic Headache; including migraine (7 sources) Migraine; Translations: [Migraine, unspecified, not intractable, without status migrainosus] Onset: 4 05-18-2021 Chronic Hypertension with complications and secondary hypertension (5 sources) Hypertensive heart disease with heart failure; Translations: [HTN HEART DISEASE W/HEART FAIL] Onset: 2 Chronic Mood disorders (10 sources) Bipolar I disorder; Translations: [Bipolar disorder, unspecified] Onset: 2 05-28-2024 Chronic Nausea and vomiting (7 sources) Nausea; Translations: [Nausea] Onset: 4 05-28-2024 Episodic Neoplasms of unspecified nature or uncertain behavior (7 sources) Neoplasm of uncertain behavior of skin; Translations: [Neoplasm of uncertain behavior of skin] Onset: 4 Episodic Nutritional deficiencies (3 sources) Vitamin D deficiency, unspecified; Translations: [Vitamin D deficiency] Onset: 3 06-23-2024 Chronic Other aftercare (5 sources) Long-term current use of insulin; 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] Onset: 4 01-17-2024 Episodic Other and unspecified benign neoplasm (7 sources) Benign neoplasm of transverse colon; Translations: [Benign neoplasm of transverse colon] Onset: 4 06-22-2021 Episodic Other connective tissue disease (7 sources) Diastasis recti; Translations: [Separation of muscle (nontraumatic), other site] Onset: 4 04-09-2019 Episodic Other gastrointestinal disorders (7 sources) Irritable bowel syndrome; Translations: [Irritable bowel syndrome without diarrhea] Onset: 4 06-22-2021 Chronic Other gastrointestinal disorders (7 sources) Abdominal bloating; Translations: [Abdominal distension (gaseous)] Onset: 4 05-28-2024 Episodic Other hereditary and degenerative nervous system conditions (4 sources) Essential tremor 05-28-2024 Chronic Other nutritional; endocrine; and metabolic disorders (11 sources) Body mass index 30+ - obesity; Translations: [Obesity, unspecified] Onset: 4 04-09-2019 Chronic Other skin disorders (2 sources) Hypertrophic condition of skin; Translations: [Other hypertrophic disorders of the skin] Onset: 4 Episodic Other skin disorders (7 sources) Epidermoid cyst of skin of face; Translations: [Epidermal cyst] Onset: 4 04-09-2019 Episodic Other skin disorders (4 sources) Multiple skin tags 06-03-2024 Episodic Other upper respiratory disease (7 sources) Chronic laryngitis; Translations: [Chronic laryngitis] Onset: 4 Resolved: 4 05-28-2024 Chronic Other upper respiratory disease (4 sources) Lesion of vocal cord 05-28-2024 Episodic Other upper respiratory infections (3 sources) Chronic sinusitis; Translations: [Chronic sinusitis, unspecified] Onset: 4 12-18-2023 Chronic Phlebitis; thrombophlebitis and thromboembolism (4 sources) H/O: Deep vein thrombosis 05-28-2024 Episodic Residual codes; unclassified (7 sources) Sleep apnea; Translations: [Sleep apnea, unspecified] Onset: 4 05-25-2021 Chronic Residual codes; unclassified (7 sources) Family history of cancer of colon; Translations: [Family history of malignant neoplasm of digestive organs] Onset: 4 05-20-2021 Episodic Spondylosis; intervertebral disc disorders; other back problems (7 sources) Cervical disc disorder; Translations: [Cervical disc disorder, unspecified, unspecified cervical region] Onset: 4 03-27-2019 Chronic Spondylosis; intervertebral disc disorders; other back problems (5 sources) Radiculopathy, cervical region; Translations: [Cervical radiculopathy] Onset: 3 05-28-2024 Episodic Substance-related disorders (4 sources) Cigarette smoker 05-28-2024 Chronic Thyroid disorders (4 sources) Hypothyroidism 05-28-2024 Chronic Unclassified (4 sources) Long-term current use of insulin 03-27-2019 Past or Other Problems Problem Classification Problem Date Documented Da te Episodic/Chronic Deficiency and other anemia (1 source) Anemia, unspecified; Translations: [ANEMIA UNSPECIFIED] Onset: 03-20-2022 Episodic Lymphadenitis (3 sources) Cervical lymphadenopathy; Translations: [Localized enlarged lymph nodes] Onset: 12-24-2023 12-24-2023 Episodic Other aftercare (1 source) 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; Translations: [ASSISTED CURRENT USE OF INSULIN] Onset: 10-09-2022 Episodic Other connective tissue disease (3 sources) Pain in right arm; Translations: [Pain in right arm] Onset: 08-02-2020 01-17-2024 Episodic Other lower respiratory disease (5 sources) Other forms of dyspnea; Translations: [OTHER FORMS OF DYSPNEA] Onset: 04-03-2022 Episodic Other non-traumatic joint disorders (3 sources) Pain of right shoulder joint; Translations: [Pain in right shoulder] Onset: 08-02-2020 01-17-2024 Episodic Other non-traumatic joint disorders (3 sources) Pain in right knee; Translations: [Pain in joint, lower leg] Onset: 08-02-2020 01-17-2024 Episodic Other skin disorders (3 sources) Mass of head; Translations: [Localized swelling, mass and lump, head] Onset: 12-18-2023 12-18-2023 Episodic Other upper respiratory disease (3 sources) Chronic hoarseness; Translations: [Dysphonia] Onset: 12-18-2023 12-18-2023 Episodic Residual codes; unclassified (4 sources) Edema, unspecified; Translations: [EDEMA UNSPECIFIED] Onset: 03-30-2022 Episodic Residual codes; unclassified (3 sources) Insomnia; Translations: [Insomnia, unspecified] Onset: 08-19-2012 12-18-2023 Episodic Results Test Name Value Interpretation Reference Range Facility Surgical Pathology Reporton 06-25-2024 Surgical Pathology Report [address] [id number] Surgical Pathology Report Collected Date/Time: 06/18/2024 15:32 EDT Pathologist: Gato CHENG PhD, Keeley Spaulding Received Date/Time: 06/20/2024 07:15 EDT AILYN CHENG, Kobe ROBERTSON MD, Kobe Galeana Surgical Pathology Report - 06/25/2024 13:16 EDT - Auth (Verified) Final Diagnosis LESION, LEFT HAND, EXCISION: - BENIGN SKIN WITH MILD HYPERPARAKERATOSIS AND ACANTHOSIS. - MILD SUPERFICIAL DERMAL FIBROSIS (SEE COMMENT). Comment: No significant inflammation, vasculitis, spongiosis, melanocytic proliferative lesion, increase of eosinophils or cytologic atypia is evident not submitted sections. The pathologic findings are subtle and nonspecific, likely representing chronic or resolved reparative changes. Clinical correlation is indicated. (Electronic Signature) Keeley Hoskins MD PhD 06/25/2024 13:16 Clinical Information enlarging nodule dorsum left hand Pre-Op Diagnosis: neoplasm of uncertain behavior Procedure: excisional biopsy left hand lesion Post-Op Diagnoses: 1. Skin tags, multiple acquired 2. Neoplasm of uncertain behavior of skin of hand Specimen(s) Received left hand lesion Gross Description Received in formalin, labeled with patient name, number and left hand lesion. Ovoid segment of wade skin and soft tissue measuring 0.5 x 0.3 and contains approximately 0.1 cm of underlying tissue situated on the surface is a raised wade, non-pigmented nodule measuring 0.3 x 0.2 cm and is situated at the margin. The margin is inked red. Specimen is bisected and entirely submitted in one cassette. (DC) DC:KELLY Microscopic Description Microscopic examination performed unless gross only specified. Multiple levels are microscopically examined. Normal [facility] Comment on above: Performed By: #### [id number] #### [facility] [address] [place] [address] Ambulatory Visit Summaryon 1 Ambulatory Visit Summary Ambulatory Visit Summary SCAR JEFFREY :1980 Visit Date:06/24/2024 Ambulatory Visit Instructions Your Care Team Attending Physician - AILYN CHENG, Kobe Davidson Primary Care Physician - Diego CHENG, Lorenzo This Is Your Medications List albuterol (Albuterol (Eqv-ProAir HFA)) amlodipine (amLODIPine 5 [...] with or without removal of ovary(s);. Medications What How Much When Instructions Unchanged albuterol (Albuterol (Eqv-ProAir HFA)) 2 Puffs Inhalation Every 6 hours as needed for Shortness of breath or wheezing Unchanged amlodipine (amLODIPine 5 mg Tab) 1 Tablets By Mouth Every day Unchanged aspirin (aspirin 81 mg Oral EC Tab) 1 Tablets By Mouth Every day Unchanged buPROPion (Wellbutrin XL 300 mg/ 24 hours Tab-ER) 1 Tablets By Mouth Every day Unchanged citalopram (CeleXA 40 mg Tab) 1 Tablets By Mouth Every day Unchanged ergocalciferol (Vitamin D) 1 Capsules By Mouth Every week Unchanged famotidine (famotidine 20 mg Tab) 1 Tablets By Mouth 2 times a day Unchanged ferrous sulfate (ferrous sulfate 325 mg Tab) 1 Tablets By Mouth 2 times a day Unchanged furosemide (Lasix 80 mg Tab) 1 Tablets By Mouth Every day Unchanged insulin regular (Humulin R (Concentrated) 500 units/ mL subcutaneous solution) See instructions via insulin pump Unchanged levetiracetam (levetiracetam 500 mg Tab) 1 Tablets By Mouth 2 times a day Unchanged levothyroxine (levothyroxine 100 mcg (0.1 mg) Tab) 1 Tablets By Mouth Every day Unchanged lorazepam (LORazepam 1 mg Tab) 1 Tablets By Mouth 2 times a day as needed for for anxiety Unchanged losartan (losartan 100 mg Tab) 1 Tablets By Mouth Every day Unchanged metformin (metformin 500 mg Tab) 1 Tablets By Mouth Every day Unchanged omeprazole (omeprazole 40 mg Cap-DR) 1 Capsules By Mouth Every day Unchanged potassium chloride (potassium chloride 10 mEq ER Tab) 1 Tablets By Mouth 2 times a day Unchanged risperidone (Risperdal 2 mg Tab) 1 Tablets By Mouth At bedtime Unchanged simvastatin (simvastatin 20 mg Tab) 1 Tablets By Mouth Once a day (at bedtime) Allergies Depakote (Edema of throat) LaMICtal (Rash) Lortab (VOMITING) Trileptal (Edema of throat) Vicodin (Edema of throat) lisinopril (Edematous skin) morphine (Vomiting) penicillin (Rash) Problems Ongoing - Any problem that you are currently receiving treatment for. Anxiety Bipolar I disorder BMI 36.0-36.9,adult Cervical [...] Sleep apnea Tubular adenoma of colon Historical - Any problem that you are no longer receiving treatment for. Abdominal bloating Cervical radiculopathy Lesion of vocal cord Postprandial epigastric pain Postprandial nausea Patient Survey You may receive a survey via text or e-mail asking about your office visit. Please share your experience with us by completing your survey. We appreciate your feedback and thank you for choosing us for your care. Malia Romero [facility] General Surgery Office/Clini c Noteon 06-24-2024 General Surgery Office/Clinic Note General Surgery Office/Clinic Note Chief Complaint follow up in-office excisional biopsy HPI Staff 6 day follow up post in-office excisional biopsy left hand lesion. Denies discomfort. Denies bleeding or drainage. Sutures intact. History of Present Illness 6 days s/p excisional biopsy of left hand skin lesion, pathology pending; doing well, mild soreness; also excision multiple skin tags, healing well. Review of Systems ROS - Provider Constitutional: no fever, no [...] and are negative or noncontributory. Physical Exam skin: left hand incision healing well, no erythema or drainage; no ecchymosis. Assessment/Plan 1. Neoplasm of uncertain behavior of skin of hand (D48.5: Neoplasm of uncertain behavior of skin) healing well, sutures removed; will call patient with pathology results; call sooner if problems/questions. Follow-up No qualifying data available Problem [...] Once a day (at bedtime) Vitamin D, 1 cap(s), Oral, qWeek Wellbutrin XL 300 mg/24 hours Tab-ER, 300 mg= 1 tab(s), Oral, Daily Allergies Depakote (Edema of throat) LaMICtal (Rash) Lortab (VOMITING) Trileptal (Edema of throat) Vicodin (Edema of throat) lisinopril (Edematous skin) morphine (Vomiting) penicillin (Rash) Social History Alcohol - Denies Alcohol Use, 03/27/2019 Substance Abuse - Denies Substance Abuse, 03/27/2019 Tobacco Former smoker, quit more than 30 days ago Tobacco Use:. Never Smokeless Tobacco Use:. Cigarettes, Started age 15.0 Years. Stopped age 32 Years., 06/03/20 (more content not included)... Normal [facility] Comment on above: Result Comment: Elec tronically Signed By: AILYN CHENG, Kobe Radford\Date and Time Signed: 06/24/24 14:17 EDT Glucose (Bld) [Mass/Vol]on Glucose Blood, POC 361 mg/dL [facility] HbA1c (Bld) [Mass fraction]o n 06-23-2024 [facility] - Hematology and Cell countson 06-23-2024 HbA1c (Bld) [Mass fraction] 7.9 % [facility] Ambulatory Visit Summaryon 1 Ambulatory Visit Summary Ambulatory Visit Summary SCAR JEFFREY :1980 Visit Date:06/18/2024 Ambulatory Visit Instructions Your Care Team Attending Physician - AILYN CHENG, Kobe Davidson Primary Care Physician - Lorenzo Cortez MD This Is [...] tube(s), with or without removal of ovary(s);. What to do next Scheduled Follow-Up Appointments Sunday 2:00 PM EDT With: Kobe ROBERTSON MD [facility] [address], [place] [id number]- Medications What How Much When Instructions Unchanged [...] lisinopril (Edematous skin) morphine (Vomiting) penicillin (Rash) Problems Ongoing - Any problem that you are currently receiving treatment for. Anxiety Bipolar I disorder BMI 36.0-36.9,adult Cervical disc disease Chronic laryngitis Cigarette smoker Diabetes type I Diastasis recti (more content not included)... Normal [facility] General Surgery Office/Clini c Noteon 06-18-2024 General Surgery Office/Clinic Note General Surgery Office/Clinic Note Chief Complaint remove skin tags HPI Staff Presents for in-office excisional biopsy left hand lesion and multiple skin tags. History of Present Illness patient here for excision left hand lesion and enlarging skin tags face and neck; no change from recent evaluation. Review of Systems ROS - Provider Constitutional: no fever, no [...] and are negative or noncontributory. Physical Exam skin: > 5o skin tags of neck; 5 mm skin tag medial to right eye; 5 mm raised nodular lesion dorsum left hand, between 4 and 5 th digits Procedure patient brought to the procedure room, placed in supine position, area prepped and draped in sterile fashion; area was anesthetized with 1 % lidocaine; left hand lesion was excised in elliptical fashion down to subcutaneous fat; total length of incision 7 mm; closed with interrupted 4-0 nylon sutures; tolerated well; ebl < 3 ml; sterile dressing applied. 15 skin tags excised from left neck with cautery, under local anesthesia with 1 % lidocaine; right facial lesion excised in same manner, medial to right eye; tolerated well. Assessment/Plan 1. Skin tags, multiple acquired (L91.8: Other hypertrophic disorders of the skin) 15 excised from left neck under local anesthesia, with cautery; right facial skin tag excised as well; tolerated well. 2. Neoplasm of uncertain behavior of skin of hand (D48.5: Neoplasm of uncertain behavior of skin) excised under local anesthesia, tolerated well, ebl < 3 ml; f/u in 1 week for suture removal; tylenol as needed for pain; call with problems/questions. Follow-up No qualifying data [...] Oral, Daily potassium chloride 10 mEq ER Tab (more content not included)... Normal [facility] Comment on above: Result Comment: Elec tronically Signed By: AILYN CHENG, Kobe Davidson\.br\Date and Time Signed: 06/18/24 15:25 EDT Ambulatory Visit Summaryon 0 06-03-2024 Ambulatory Visit Summary Ambulatory Visit Summary SCAR JEFFREY :1980 Visit Date:06/03/2024 Ambulatory Visit Instructions Your Care Team Attending Physician - AILYN CHENG, Kobe Davidson Primary Care Physician - Diego CHENG, Lorenzo Referring Physician - Lorenzo Cortez MD This [...] EDT With: AILYN CHENG, Kobe Davidson Where: [facility] [address], [address], [place] [id number]- Medications What How Much When Instructions Unchanged [...] (Rash) Pro (more content not included)... Normal [facility] CREATININEon 01-22-2023 Creatinine [Mass/Vol] 0.98 mg/dL Normal 0.55-1.02 [facility] Comment on above: Performed By: #### C NILSON #### [facility] [address] [place], [place] [address] Dr. Keeley Hoskins EGFR-AF SLOVENIAN >60 Normal >=60 [facility] Comment on above: Performed By: #### C NILSON #### [facility] [address] [place], [place] [address] Dr. Keeley Hoskins EGFR-NON AF SLOVENIAN >60 Normal >=60 [facility] Comment on above: Performed By: #### C NILSON #### [facility] [address] [place] [address] NECK [address] W [...] by: EDNA GOMEZ Date: 2023-01-22 11:08 Normal [facility] MRI CSPINE WO CONon 01-23-20 23 MRI CSPINE WO CON EXAMINATION: MRI CSP INE WO CON HISTORY: Degeneration of cervical intervertebral [...] EDNA GOMEZ Date: 2023-01-22 11:04 Normal [facility] CT FACIAL BONES WO CONon CT [...] by: FLORA DERAS Date: 2023-01-04 07:25 Normal [facility] XR CSPINE MIN 4 VIEWSon 04- XR CSPINE MIN 4 VIEWS EXAMINATION: XR [...] FLORA DERAS Date: 2023-01-04 07:12 Normal [facility] C-PEPTIDE, SERUMon C-Peptide, Serum <0.1 Critically low 1.1-4.4 [facility] Comment on above: Result Comment: C-Pe ptide reference interval is for fasting patients. Performed By: #### C PEPT #### [facility] [address] [place] [address] Dr. Keeley Hoskins BNPon 10-06-2022 Natriuretic peptide B (Bld) [Mass/Vol] 20.0 pg/mL Normal <=450.0 [facility] Comment on above: Performed By: #### R ENAL, LIPID #### [facility] [address] [place] [address] Dr. Keeley Hoskins LIPID PROFILEon 10-06-2022 CHOL-HDL RATIO NORM SEE BELOW Normal [facility] Comment on above: Result Comment: 3.3 - 4.4 LOW RISK 4.4 - 7.1 AVERAGE RISK 7.1 - 11.0 MODERATE RISK >11.0 HIGH RISK Performed By: #### R ENAL, LIPID #### [facility] [address] [place] [address] Dr. Keeley Hoskins Cholesterol [Mass/Vol] 156 mg/dL Normal <=200 [facility] Comment on above: Performed By: #### R ENAL, LIPID #### [facility] [address] [place] [address] Dr. Keeley Hoskins Cholesterol in HDL [Mass/Vol] 32 mg/dL Critically low 40-60 [facility] Comment on above: Performed By: #### R ENAL, LIPID #### [facility] [address] [place] [address] [address] Keeley Hoskins Cholesterol in LDL [Mass/Vol] 71.8 mg/dL Normal [facility] Comment on above: Performed By: #### R ENAL, LIPID #### [facility] [address] [place] [address] [address] Keeley Hoskins Cholesterol.total /Cholesterol in HDL [Mass ratio] 4.9 {ratio} Normal [facility] Comment on above: Performed By: #### R ENAL, LIPID #### [facility] [address] [place] [address] [address] Keeley Hoskins HDL NORMAL > or = 60 mg/dl - LO W CARDIOVASCULAR RISK <40 mg/dl - HIGH CARDIOVASCULAR RISK Normal [facility] Comment on above: Performed By: #### R ENAL, LIPID #### [facility] [address] [place] [address] [address] Keeley Hoskins LDL CALC NORMAL SEE BELOW Normal [facility] Comment on above: Result Comment: <100 mg/dl OPTIMAL 100 - 129 mg/dl NEAR OR ABOVE OPTIMAL 130 - 159 mg/dl BORDERLINE HIGH 160 - 189 mg/dl HIGH >190 mg/dl VERY HIGH Performed By: #### R ENLISSY, LIPID #### [facility] [address] [place] [address] [address] Keeley Hoskins Triglyceride [Mass/Vol] 261 mg/dL Critically high <=150 [facility] Comment on above: Performed By: #### R ENLISSY, LIPID #### [facility] [address] [place] [address] [address] Keeley Hoskins VLDL CALC 52.2 mg/dL Normal [facility] Comment on above: Performed By: #### R ENAL, LIPID #### [facility] [address] [place] [address] [address] Keeley Hoskins MICROALB CREAT RATIO RANDOMo n 10-06-2022 mALB 4.2 mg/L Normal <=30.0 [facility] Comment on above: Performed By: #### M CRR #### [facility] [address] [place] [address] [address] Keeley Hoskins URINE CREAT <13.00 Critically low 20.00-300.00 [facility] Comment on above: Performed By: #### M CRR #### [facility] [address] [place] [address] Dr. Keeley Hoskins RENAL FUNCTION PANELon 10-06 Albumin [Mass/Vol] 4.0 g/dL Normal 3.4-5.0 [facility] Comment on above: Performed By: #### R ENAL, LIPID #### [facility] [address] [place] [address] Dr. Keeley Hoskins Calcium [Mass/Vol] 9.3 mg/dL Normal 8.5-10.1 [facility] Comment on above: Performed By: #### R ENAL, LIPID #### [facility] [address] [place] [address] Dr. Keeley Hoskins Chloride [Moles/Vol] 101 mmol/L Normal 98-107 [facility] Comment on above: Performed By: #### R ENAL, LIPID #### [facility] [address] [place] [address] Dr. Keeley Hoskins CO2 [Moles/Vol] 28.9 mmol/L Normal 21.0-32.0 [facility] Comment on above: Performed By: #### R ENAL, LIPID #### [facility] [address] [place] [address] Dr. Keeley Hoskins Creatinine [Mass/Vol] 0.81 mg/dL Normal 0.55-1.02 [facility] Comment on above: Performed By: #### R ENAL, LIPID #### [facility] [address] [place] [address] Dr. Keeley Hoskins EGFR-AF SLOVENIAN >60 Normal >=60 [facility] Comment on above: Performed By: #### R ENAL, LIPID #### [facility] [address] [place] [address] Dr. Keeley Hoskins EGFR-NON AF SLOVENIAN >60 Normal >=60 [facility] Comment on above: Performed By: #### R ENAL, LIPID #### [facility] [address] [place] [address] Dr. Keeley Hoskins Glucose [Mass/Vol] 123 mg/dL Critically high 74-106 [facility] Comment on above: Performed By: #### R ENLISSY, LIPID #### [facility] [address] [place] [address] [address] Keeley Hoskins Phosphate [Mass/Vol] 3.9 mg/dL Normal 2.6-4.7 [facility] Comment on above: Performed By: #### R ENLISSY, LIPID #### [facility] [address] [place] [address] Dr. Keeley Hoskins Potassium [Moles/Vol] 4.4 mmol/L Normal 3.5-5.1 [facility] Comment on above: Performed By: #### R SEGUN, LIPID #### [facility] [address] [place] [address] Dr. Keeley Hoskins Sodium [Moles/Vol] 140 mmol/L Normal 136-145 [facility] Comment on above: Performed By: #### R SEGUN, LIPID #### [facility] [address] [place] [address] Dr. Keeley Hoskins Urea nitrogen [Mass/Vol] 12.0 mg/dL Normal 7.0-18.0 [facility] Comment on above: Performed By: #### R SEGUN, LIPID #### [facility] [address] [place] [address] Dr. Keeley Hoskins VITAMIN D 25 OHon 10-06-2022 VIT D 25-OH 37.8 ng/mL Normal [facility] Comment on above: Performed By: #### R ENLISSY, LIPID #### [facility] [address] [place] [address] Dr. Keeley Hoskins VIT D RANGES SEE BELOW Normal [facility] Comment on above: Result Comment: <20 ng/mL Vit D deficient 20 - <30 ng/mL Vit D insufficient 30 - 100 ng/mL Vit D sufficient >100 ng/mL Potential Toxicity Performed By: #### R SEGUN, LIPID #### [facility] [address] [place] [address] Dr. Keeley Hoskins NM STRESS/REST MULTIon 04-17 NM STRESS/REST MULTI Patient: SCAR JEFFREY Exam Date: 04/17/2022 : 1980 Gender:F Ordering : DR LORENZO CORTEZ . Admission #: [id number] Family : Order #: [id number] CLICK HERE TO VIEW EXAM RADIOLOGY REPORT [...] Gomez MD on 04/18/2022 at 11:44 Normal [facility] ECHOCARDIO M/2D COMPLETEon 0 03-30-2022 ECHOCARDIO M/2D COMPLETE Patient: SCAR JEFFREY Exam Date: 03/30/2022 : 1980 Gender:F Ordering : DR LORENZO CORTEZ . Admission #: [id number] Family : Order #: [id number] CLICK HERE TO VIEW EXAM ECHOCARDIOGRAM REPORT [...] Wooten M.D. on 03/30/2022 at 13:50 Normal [facility] LIPID PROFILEon 03-30-2022 CHOL-HDL RATIO NORM SEE BELOW Normal [facility] Comment on above: Result Comment: 3.3 - 4.4 LOW RISK 4.4 - 7.1 AVERAGE RISK 7.1 - 11.0 MODERATE RISK >11.0 HIGH RISK Performed By: #### R ENAL, LIPID #### [facility] [address] [place], [place] [address] Dr. Keeley Hoskins Cholesterol [Mass/Vol] 140 mg/dL Normal <=200 [facility] Comment on above: Performed By: #### R ENAL, LIPID #### [facility] [address] [place], [place] [address] Dr. Keeley Hoskins Cholesterol in HDL [Mass/Vol] 30 mg/dL Critically low 40-60 [facility] Comment on above: Performed By: #### R ENAL, LIPID #### [facility] [address] [place] [address] [address] Keeley Hoskins Cholesterol in LDL [Mass/Vol] 69.2 mg/dL Normal [facility] Comment on above: Performed By: #### R ENAL, LIPID #### [facility] [address] [place] [address] [address] Keeley Hoskins Cholesterol.total /Cholesterol in HDL [Mass ratio] 4.7 {ratio} Normal [facility] Comment on above: Performed By: #### R ENAL, LIPID #### [facility] [address] [place] [address] [address] Keeley Hoskins HDL NORMAL > or = 60 mg/dl - LO W CARDIOVASCULAR RISK <40 mg/dl - HIGH CARDIOVASCULAR RISK Normal [facility] Comment on above: Performed By: #### R ENAL, LIPID #### [facility] [address] [place] [address] Dr. Keeley Hoskins LDL CALC NORMAL SEE BELOW Normal [facility] Comment on above: Result Comment: <100 mg/dl OPTIMAL 100 - 129 mg/dl NEAR OR ABOVE OPTIMAL 130 - 159 mg/dl BORDERLINE HIGH 160 - 189 mg/dl HIGH >190 mg/dl VERY HIGH Performed By: #### R ENAL, LIPID #### [facility] [address] [place] [address] Dr. Keeley Hoskins Triglyceride [Mass/Vol] 204 mg/dL Critically high <=150 [facility] Comment on above: Performed By: #### R ENAL, LIPID #### [facility] [address] [place] [address] Dr. Keeley Hoskins VLDL CALC 40.8 mg/dL Normal [facility] Comment on above: Performed By: #### R ENAL, LIPID #### [facility] [address] [place] [address] Dr. Keeley Hoskins MICROALB CREAT RATIO RANDOMo n 03-30-2022 mALB 8.3 mg/L Normal <=30.0 [facility] Comment on above: Performed By: #### M CRR #### [facility] [address] [place] [address] [address] Keeley IVANB CR RATIO 466.0 mg/g Critically high 0.0-29.9 [facility] Comment on above: Performed By: #### M CRR #### [facility] [address] [place] [address] Dr. Keeley Hoskins MALB CR RATIO RANGE SEE BELOW Normal [facility] Comment on above: Result Comment: NO M ICROALBUMINURIA 0-29 MG/G CLINICAL MICROALBUMINURIA 30-300 MG/G MACROALBUMINURIA >300 MG/G Performed By: #### M CRR #### [facility] [address] [place] [address] Dr. Keeley Hoskins URINE CREAT 17.81 mg/dL Critically low 20.00-300.00 [facility] Comment on above: Performed By: #### M CRR #### [facility] [address] [place] [address] Dr. Keeley Hoskins RENAL FUNCTION PANELon 03-30 Albumin [Mass/Vol] 4.2 g/dL Normal 3.4-5.0 [facility] Comment on above: Performed By: #### R ENLISSY LIPID #### [facility] [address] [place] [address] Dr. Keeley Hoskins Calcium [Mass/Vol] 9.2 mg/dL Normal 8.5-10.1 [facility] Comment on above: Performed By: #### R ENLISSY, LIPID #### [facility] [address] [place] [address] Dr. Keeley Hoskins Chloride [Moles/Vol] 98 mmol/L Normal 98-107 [facility] Comment on above: Performed By: #### R ENLISSY, LIPID #### [facility] [address] [place] [address] Dr. Keeley Hoskins CO2 [Moles/Vol] 28.6 mmol/L Normal 21.0-32.0 [facility] Comment on above: Performed By: #### R ENAL, LIPID #### [facility] [address] [place] [address] Dr. Keeley Hoskins Creatinine [Mass/Vol] 1.17 mg/dL Critically high 0.55-1.02 [facility] Comment on above: Performed By: #### R ENAL, LIPID #### [facility] [address] [place] [address] [address] Keeley Hoskins EGFR-AF SLOVENIAN >60 Normal >=60 [facility] Comment on above: Performed By: #### R ENAL, LIPID #### [facility] [address] [place] [address] [address] Keeley Hoskins EGFR-NON AF SLOVENIAN 50 mL/min/1.73m2 Critically low >=60 [facility] Comment on above: Performed By: #### R ENAL, LIPID #### [facility] [address] [place] [address] Dr. Keeley Hoskins Glucose [Mass/Vol] 212 mg/dL Critically high 74-106 [facility] Comment on above: Performed By: #### R ENAL, LIPID #### [facility] [address] [place] [address] Dr. Keeley Hoskins Phosphate [Mass/Vol] 4.0 mg/dL Normal 2.6-4.7 [facility] Comment on above: Performed By: #### R ENAL, LIPID #### [facility] [address] [place] [address] Dr. Keeley Hoskins Potassium [Moles/Vol] 4.1 mmol/L Normal 3.5-5.1 [facility] Comment on above: Performed By: #### R ENAL, LIPID #### [facility] [address] [place] [address] Dr. Keeley Hoskins Sodium [Moles/Vol] 136 mmol/L Normal 136-145 [facility] Comment on above: Performed By: #### R ENAL, LIPID #### [facility] [address] [place] [address] [address] Keeley Hoskins Urea nitrogen [Mass/Vol] 16.0 mg/dL Normal 7.0-18.0 [facility] Comment on above: Performed By: #### R ENAL, LIPID #### [facility] [address] [place] [address] Dr. Keeley Hoskins VITAMIN D 25 OHon 03-30-2022 VIT D 25-OH 33.8 ng/mL Normal [facility] Comment on above: Performed By: #### V ITAD #### [facility] [address] [place] [address] Dr. Keeley Hoskins VIT D RANGES SEE BELOW Normal [facility] Comment on above: Result Comment: <20 ng/mL Vit D deficient 20 - <30 ng/mL Vit D insufficient 30 - 100 ng/mL Vit D sufficient >100 ng/mL Potential Toxicity Performed By: #### V ITAD #### [facility] [address] [place] [address] Dr. Keeley Hoskins BNPon 03-16-2022 Natriuretic peptide B (Bld) [Mass/Vol] 20.0 pg/mL Normal <=450.0 [facility] Comment on above: Performed By: #### T 7, TSH, CMP, BNP #### [facility] [address] [place] [address] Dr. Keeley Hoskins CBC AUTO DIFFon 03-16-2022 BASO # 0.1 103/ul Normal 0.0-0.1 [facility] Comment on above: Performed By: #### R ENLISSY, LIPID #### [facility] [address] [place] [address] Dr. Keeley Hoskins Basophils/100 WBC (Bld) 1.0 % Normal 0.2-2.0 [facility] Comment on above: Performed By: #### R ENAL, LIPID #### [facility] [address] [place] [address] Dr. Keeley Hoskins EO # 0.1 103/ul Normal 0.0-0.7 [facility] Comment on above: Performed By: #### R ENAL, LIPID #### [facility] [address] [place] [address] Dr. Keeley Hoskins Eosinophils/100 WBC (Bld) 1.8 % Normal 0.9-7.0 [facility] Comment on above: Performed By: #### R ENAL, LIPID #### [facility] [address] [place] [address] [address] Keeley Hoskins Erythrocyte distribution width (RBC) [Ratio] 12.3 % Normal 11.0-15.0 [facility] Comment on above: Performed By: #### R ENAL, LIPID #### [facility] [address] [address] [address] Keeley Hoskins Hematocrit (Bld) [Volume fraction] 37.3 % Normal 36.0-48.0 [facility] Comment on above: Performed By: #### R ENAL, LIPID #### [facility] [address] [place] [address] Dr. Keeley Hoskins Hemoglobin (Bld) [Mass/Vol] 12.7 g/dL Normal 12.0-16.0 [facility] Comment on above: Performed By: #### R ENAL, LIPID #### [facility] [address] [place] [address] Dr. Keeley Hoskins IG # 0.04 10e3/ul Critically high 0.00-0.03 [facility] Comment on above: Performed By: #### R ENAL, LIPID #### [facility] [address] [place] [address] Dr. Keeley Hoskins IG % 0.6 % Critically high 0.0-0.5 [facility] Comment on above: Performed By: #### R ENAL, LIPID #### [facility] [address] [place] [address] Dr. Keeley Hoskins LYMPH # 1.8 103/ul Normal 1.2-3.8 [facility] Comment on above: Performed By: #### R ENAL, LIPID #### [facility] [address] [place] [address] Dr. Keeley Hoskins Lymphocytes/100 WBC (Bld) 26.4 % Normal 20.5-60.0 [facility] Comment on above: Performed By: #### R ENAL, LIPID #### [facility] [address] [place] [address] Dr. Keeley Hoskins MANUAL DIFF REQ NO Normal [facility] Comment on above: Performed By: #### R ENAL, LIPID #### [facility] [address] [place] [address] Dr. Keeley Hoskins MCH (RBC) [Entitic mass] 28.0 pg Normal 26.7-34.0 [facility] Comment on above: Performed By: #### R ENAL, LIPID #### [facility] [address] [place] [address] Dr. Keeley Hoskins MCHC (RBC) [Mass/Vol] 34.0 g/dL Normal 29.9-35.2 [facility] Comment on above: Performed By: #### R ENAL, LIPID #### [facility] [address] [place] [address] Dr. Keeley Hoskins MCV (RBC) [Entitic vol] 82.2 fL Normal 81.0-99.0 [facility] Comment on above: Performed By: #### R ENAL, LIPID #### [facility] [address] [place] [address] Dr. Keeley Hoskins MONO # 0.5 103/ul Normal 0.3-0.8 [facility] Comment on above: Performed By: #### R ENAL, LIPID #### [facility] [address] [place] [address] Dr. Keeley Hoskins Monocytes/100 WBC (Bld) 6.6 % Normal 1.7-12.0 [facility] Comment on above: Performed By: #### R ENAL, LIPID #### [facility] [address] [place] [address] Dr. Keeley Hoskins NEUT # 4.4 103/ul Normal 1.4-6.5 [facility] Comment on above: Performed By: #### R ENAL, LIPID #### [facility] [address] [place] [address] Dr. Keeley Hoskins Neutrophils/100 WBC (Bld) 63.6 % Normal 43.0-75.0 [facility] Comment on above: Performed By: #### R ENAL, LIPID #### [facility] [address] [place] [address] Dr. Keeley Hoskins Platelet mean volume (Bld) [Entitic vol] 10.4 fL Normal 9.5-13.5 [facility] Comment on above: Performed By: #### R ENLISSY, LIPID #### [facility] [address] [place] [address] Dr. Keeley Hoskins PLT 283 103/ul Normal 150-450 [facility] Comment on above: Performed By: #### R ENLISSY, LIPID #### [facility] [address] [place] [address] Dr. Keeley Hoskins RBC 4.54 106/ul Normal 4.20-5.40 [facility] Comment on above: Performed By: #### R ENLISSY, LIPID #### [facility] [address] [place] [address] Dr. Keeley Hoskins WBC 6.9 103/ul Normal 4.0-11.0 [facility] Comment on above: Performed By: #### R SEGUN, LIPID #### [facility] [address] [place] [address] Dr. Keeley Hoskins FREE THYROXINE INDEX T7on FTI 2.91 Normal 1.30-4.50 [facility] Comment on above: Performed By: #### R SEGUN, LIPID #### [facility] [address] [place] [address] Dr. Keeley Hoskins T3U 30.0 % Normal 30.0-39.0 [facility] Comment on above: Performed By: #### R SEGUN, LIPID #### [facility] [address] [place] [address] Dr. Keeley Hoskins T4 [Mass/Vol] 9.70 ug/dL Normal 4.80-13.[address] [facility] Comment on above: Performed By: #### R ENLISSY, LIPID #### [facility] [address] [place] [address] Dr. Keeley Hoskins IRONon 03-16-2022 Iron [Mass/Vol] 72.0 ug/dL Normal 50.0-170.0 [facility] Comment on above: Performed By: #### I MARY #### [facility] [address] [place] [address] Dr. Keeley Hoskins PROF 14(COMP METB)on 022 Albumin [Mass/Vol] 3.9 g/dL Normal 3.4-5.0 [facility] Comment on above: Performed By: #### T 7, TSH, CMP, BNP #### [facility] [address] [address] [address] Keeley Hoskins Albumin/Globulin [Mass ratio] 1.1 {ratio} Normal [facility] Comment on above: Performed By: #### T 7, TSH, CMP, BNP #### [facility] [address] [place] [address] Dr. Keeley Hoskins ALP [Catalytic activity/Vol] 143 U/L Critically high 46-116 [facility] Comment on above: Performed By: #### T 7, TSH, CMP, BNP #### [facility] [address] [place] [address] Dr. Keeley Hoskins ALT [Catalytic activity/Vol] 43 U/L Normal 14-59 [facility] Comment on above: Performed By: #### T 7, TSH, CMP, BNP #### [facility] [address] [place] [address] Dr. Keeley Hoskins Anion gap [Moles/Vol] 15.6 mmol/L Normal [facility] Comment on above: Performed By: #### T 7, TSH, CMP, BNP #### [facility] [address] [place] [address] Dr. Keeley Hoskins AST [Catalytic activity/Vol] 23 U/L Normal 15-37 [facility] Comment on above: Performed By: #### T 7, TSH, CMP, BNP #### [facility] [address] [place] [address] Dr. Keeley Hoskins Bilirubin [Mass/Vol] 0.6 mg/dL Normal 0.2-1.0 [facility] Comment on above: Performed By: #### T 7, TSH, CMP, BNP #### [facility] [address] [place] [address] Dr. Keeley Hoskins Calcium [Mass/Vol] 9.2 mg/dL Normal 8.5-10.1 [facility] Comment on above: Performed By: #### T 7, TSH, CMP, BNP #### [facility] [address] [address] [address] Keeley Hoskins Chloride [Moles/Vol] 96 mmol/L Critically low 98-107 [facility] Comment on above: Performed By: #### T 7, TSH, CMP, BNP #### [facility] [address] [address] [address] Keeley Hoskins CO2 [Moles/Vol] 25.1 mmol/L Normal 21.0-32.0 [facility] Comment on above: Performed By: #### T 7, TSH, CMP, BNP #### [facility] [address] [place] [address] Dr. Keeley Hoskins Creatinine [Mass/Vol] 1.14 mg/dL Critically high 0.55-1.02 [facility] Comment on above: Performed By: #### T 7, TSH, CMP, BNP #### [facility] [address] [place] [address] Dr. Keeley Hoskins EGFR-AF SLOVENIAN >60 Normal >=60 [facility] Comment on above: Performed By: #### T 7, TSH, CMP, BNP #### [facility] [address] [place] [address] Dr. Keeley Hoskins EGFR-NON AF SLOVENIAN 52 mL/min/1.73m2 Critically low >=60 [facility] Comment on above: Performed By: #### T 7, TSH, CMP, BNP #### [facility] [address] [place] [address] Dr. Keeley Hoskins Globulin (S) [Mass/Vol] 3.4 g/dL Normal [facility] Comment on above: Performed By: #### T 7, TSH, CMP, BNP #### [facility] [address] [place] [address] Dr. Keeley Hoskins Glucose [Mass/Vol] 438 mg/dL Critically high 74-106 [facility] Comment on above: Performed By: #### T 7, TSH, CMP, BNP #### [facility] [address] [place] [address] Dr. Keeley Hoskins Potassium [Moles/Vol] 4.7 mmol/L Normal 3.5-5.1 [facility] Comment on above: Performed By: #### T 7, TSH, CMP, BNP #### [facility] [address] [address] [address] Keeley Hoskins Protein [Mass/Vol] 7.3 g/dL Normal 6.4-8.2 [facility] Comment on above: Performed By: #### T 7, TSH, CMP, BNP #### [facility] [address] [address] [address] Keeley Hoskins Sodium [Moles/Vol] 132 mmol/L Critically low 136-145 [facility] Comment on above: Performed By: #### T 7, TSH, CMP, BNP #### [facility] [address] [address] [address] Keeley Hoskins Urea nitrogen [Mass/Vol] 17.0 mg/dL Normal 7.0-18.0 [facility] Comment on above: Performed By: #### T 7, TSH, CMP, BNP #### [facility] [address] [address] [address] Keeley Hoskins Urea nitrogen/Creatini ne [Mass ratio] 14.9 mg/mg Normal [facility] Comment on above: Performed By: #### T 7, TSH, CMP, BNP #### [facility] [address] [address] [address] Keeley Hoskins TSHon 03-16-2022 TSH 2.240 uIU/mL Normal 0.358-3.[address] [facility] Comment on above: Performed By: #### R ENAL, LIPID #### [facility] [address] [address] [address] Keeley Hoskins KNEE RIGHT 3 [facility] 1 KNEE RIGHT 3 S [facility] Department of Radiology [address] [place] [phone] ===== Patient Name: SCAR JEFFREY : 1980 Sex: F Age: Race: White Pt. Location: Patient Status: O Ordered Date: 06/13/2021 9:05:00 AM Completed Date: 06/13/2021 09:13 AM Requesting Provider: TONYA CENTENO Attending Provider: TONYA CENTENO Report Copy To: Signs & Symptoms: M25.561 Pain in right knee I10 History: Comments: standing , Weight Bearing?: Y Exam: KNEE RIGHT 3 [facility] ===== KNEE RIGHT 3 [facility] 06/13/2021 9:13 AM CLINICAL INDICATIONS: M25.561 Pain [...] pathology Electronically signed: Toyin Juan. Transcribed by: [email or web address], User Resident: Electronically Signed by: TOYIN JUAN @ 06/13/2021 11:03 AM Normal [facility] Comment on above: Order Comment: stand ing , Weight Bearing?: Y KNEE RIGHT 3 [facility] KNEE RIGHT 3 [facility] Department of Radiology [address] [place] [phone] ===== Patient Name: SCAR JEFFREY : 1980 Sex: F Age: Race: White Pt. Location: 84 Patient Status: O Ordered Date: 11/15/2020 10:15:00 AM Completed Date: 11/15/2020 10:33 AM Requesting Provider: TONYA CENTENO Attending Provider: TONYA CENTENO Report Copy To: Signs & Symptoms: M25.561 Pain in right knee I10 History: [place] Comments: evaluate Exam: KNEE RIGHT 3 [facility] ===== KNEE RIGHT 3 S 11/15/2020 10:33 AM [...] reports Electronically signed: Naila Puentes. Transcribed by: [email or web address], User Resident: GREGG LEMONS Electronically Signed by: NAILA PUENTES @ 11/15/2020 11:25 AM I personally read this/these film(s) with this resident Normal [facility] Comment on above: Order Comment: evalu ate TIBIA FIBULA RIGHTon 021 TIBIA FIBULA RIGHT [facility] Department of Radiology [address] [place] [phone] ===== Patient Name: SCAR JEFFREY : 1980 Sex: F Age: Race: White Pt. Location: 84 Patient Status: O Ordered Date: 11/15/2020 9:55:00 AM Completed Date: 11/15/2020 10:33 AM Requesting Provider: TONYA CENTENO Attending Provider: TONYA CENTENO Report Copy To: Signs & Symptoms: S82.142A Displaced bicondylar fracture of right tibia, init I10 History: [place] Comments: evaluate Exam: TIBIA FIBULA RIGHT ===== Addendum Begins Osseous irregularity of the lateral [...] abnormality. Electronically signed: Naila Puentes. Transcribed by: [email or web address], User Resident: Electronically Signed by: NAILA PUENTES @ 11/15/2020 11:37 AM Normal [facility] Comment on above: Order Comment: evalu ate Vital Signs Date Time Vital Sign Value Performing Clinician Facility 06-23-2024 10:0 Body height 166.4 cm Zay Gnozalez MD Work Phone: [facility] 06-23-2024 10:10-0400 Body mass index (BMI) [Ratio] 59.16 kg/m2 Zay Gonzalez MD Work Phone: [facility] 06-23-2024 10:10-0400 Body weight 163.75 kg Zay Gonzalez MD Work Phone: [facility] 06-23-2024 10:10-0400 Diastolic blood pressure 60 mm[Hg] Zay Gonzalez MD Work Phone: [facility] 06-23-2024 10:10-0400 Heart rate 98 /min Zay Gonzalez MD Work Phone: [facility] 06-23-2024 10:10-0400 Respiratory rate 18 /min Zay Gonzalez MD Work Phone: [facility] 06-23-2024 10:10-0400 Systolic blood pressure 160 mm[Hg] Zay Gonzalez MD Work Phone: [facility] 06-03-2024 16:01-0400 Blood Pressure Location Kobe ROBERTSON [facility] 06-03-2024 16:01-0400 Diastolic blood pressure 70 mm[Hg] Kobe ROBERTSON [facility] 06-03-2024 16:01-0400 Heart rate 72 /min Kobe ROBERTSON [facility] 06-03-2024 16:01-0400 Respiratory rate 16 /min Kobe ROBERTSON [facility] 06-03-2024 16:01-0400 Systolic blood pressure 132 mm[Hg] Kobe ROBERTSON [facility] Encounters Encounter Date Encounter Type Care Provider Facility Start: 08-19-2024 ambulatory Castillo Rollins acility:[facility] Start: 06-24-2024 End: 06-24-2024 ambulatory Kobe R NILL Facility:[facility] Start: 06-24-2024 End: 06-24-2024 Patient encounter procedure Kobe R NILL [facility] Start: 06-23-2024 End: 06-23-2024 Bamboo flowsheet Zay Gonzalez MD Work Phone: [facility] Start: 06-23-2024 End: 06-23-2024 Bamboo flowsheet Zay Gonzalez MD Work Phone: [facility] Start: 06-23-2024 End: 06-23-2024 Office outpatient visit 40 minutes Zay Gonzalez MD Work Phone: 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 (CMS/HCC) Start: 06-23-2024 End: 06-23-2024 ambulatory ZAY GONZALEZ Not Available Start: 06-18-2024 End: 06-18-2024 Lab Drop off Kobe R NILL [facility] Start: 06-18-2024 End: 06-18-2024 ambulatory Kobe R NILL Facility[facility] Start: 06-18-2024 End: 06-18-2024 Patient encounter procedure Kobe R NILL [facility] Start: 06-03-2024 End: 06-03-2024 ambulatory Kobe R NILL Facility:[facility] Start: 06-03-2024 End: 06-03-2024 Patient encounter procedure Kobe R NILL [facility] Start: 01-23-2024 End: 01-23-2024 ambulatory THALIA H [...] Start: 10-15-2020 End: 11-01-2020 ambulatory TONYA CENTENO Facility:[facility] Procedures Date Procedure Procedure Detail Performing Clinician Start: 06-23-2024 Gluc bld gluc mntr d ev cleared fda spec home use Zay Gonzalez MD Work Phone: Start: 06-08-2021 Colonoscopy Kobe CAPPS LL Arthroscopic repair of rotator cuff Kobe ROBERTSON Bladder excision Kobe NIL L Comment on above: multiple section Kobe NIL L section Kobe NIL L Cholecystectomy Kobe NILL Decompression of med jesusita nerve Kobe ATKINSONL Comment on above: right Excision of vocal co rd nodule Kobe ROBERTSON Insertion of insulin pump Nohelia ROBERTSON Plan of Treatment Date Care Activity Detail Author Start: 10-27-2024 End: 10-27-2024 Patient encounter procedure 10/27/2024 10:10 AM EST Office Visit [facility] [address] [place] [phone] Zay Gonzalez MD [address] [place] [address] [facility] Start: 06-23-2024 End: 06-23-2024 Patient encounter procedure 06/23/2024 10:40 AM EDT Office Visit [facility] [address] [place] [phone] Zay Gonzalez MD [address] [place] [address] Type 1 diabetes mellitus with hyperglycemia (HCC) (CMS/HCC) [facility] Comment on above: Type 1 diabetes bar itus with hyperglycemia (HCC) ([facility]) Payers Date Payer Category Payer Self-pay 2019 Medicare (Managed Care) [employer] [id number] 2017 Medicaid MEDICAID [facility] [id number] 1980 Unknown [id number] 2.16.840.1.415019.3.579.2. 647 1980 Unknown [id number] 2.16.840.1.537414.3.579.2. 593 1980 Unknown [id number] 2.16.840.1.608954.3.579.2. 593 1980 Unknown [id number] 2.16.840.1.764703.3.579.2. 593 1978 Unknown [id number] 2.16.840.1.153169.3.579.2. 593 1978 Unknown [id number] 2.16.840.1.093761.3.579.2. 593 1978 Unknown [id number] 2.16.840.1.586941.3.579.2. 593 1978 Unknown [id number] 2.16.840.1.308559.3.579.2. 593 1980 Unknown [id number] 2.16.840.1.415085.3.579.2. 593 1978 Unknown [id number] 2.16.840.1.301165.3.579.2. 593 1978 Unknown [id number] 2.16.840.1.349960.3.579.2. 1259 1978 Unknown [id number] 2.16.840.1.380734.3.579.2. 1259 1978 Unknown [id number] 2.16.840.1.503543.3.579.2. 1259 1978 Unknown [id number] 2.16.840.1.051694.3.579.2. 727 1980 Unknown [id number] 2.16.840.1.025241.3.579.2. 727 1978 Unknown [id number] 2.16.840.1.894905.3.579.2. 727 1978 Unknown [id number] 2.16.840.1.256793.3.579.2. 727 1961 Medicaid [id number] 1961 Private Health Insurance [id number] Unknown [id number] 2.16.840.1.833818.3.579.2. 531 Social History Date Type Detail Facility Start: 12-18-2023 End: 06-03-2024 Tobacco smoking status Ex-smoker (finding) [facility] Tobacco smoking status Never [facility] Start: 01-23-2024 Sex Assigned At Female F [facility] Start: 09-10-2005 End: 09-10-2016 History of tobacco use Current smoker [facility] Start: 09-10-2005 End: 09-10-2016 History of tobacco use Cigarette Smoker [facility] Start: 12-18-2023 Tobacco use and exposure Smokeless tobacco non-user [facility] Start: 06-12-2024 Alcoholic beverage intake Ex-drinker (finding) [facility] Start: 01-23-2024 History of Social function [facility] Start: 1980 Sex assigned at Not on file [facility] Medical Equipment Procedure Code Equipment Code Equipment Origin al Text Equipment Identifier Dates [id number] Start: 06-10-2024 End: 06-10-2025 Functional Status Date Assessment Result Facility 06-03-2024 Functional Status N/A [facility] History of Present illness Narrative 06-23-2024 Zay Gonzalez MD - 06/23/2024 10:40 AM EDT Note Date & Type Note Facility 06-23-2024 History of Presen t illness Narrative Scar Jeffrey is a 43 y.o. female Zay Gonzalez MD presents with chief complaint of Diabetes and Follow-up HPI: Interim History: 06/2024 Follow-up visit of for type 1 diabetes. she is on U-500 and sensor pump. 12 AM 1, 8 AM 2.8, 10 PM 2.5 ICR 1:5, ISS: 1:20, A1c 7.9 , BG 361 , on metformin 1000 mg bid. CGM 6-38-56 AVG 201. pupm 69/31 TDD 75 units of U-500 Interim History: 02/2024 Follow-up visit of 02/25/2024 for type 1 diabetes. she is on U-500 and sensor pump. 12 AM 2.5, 8 AM 2.8, 10 PM 2.5 ICR 1:5, ISS: 1:20, 68/32 %, TDD 85. A1c 8, BG 126, on metformin 1000 mg bid. CGM 6-38-56 AVG 201. Interim History: 11/2023 Follow-up visit of 11/12/2023 for type 1 diabetes. she is on U-500 and sensor pump. 12 AM 2, 8 AM 2.2, 10 PM 2 ICR 1:5, ISS: 1:20, 69.31 %, TDD 61. a1C 7.9, BG 232, on metformin 1000 mg bid. CGM 3-43-54 AVG 190. Interim History: 08/2023 Follow-up visit of 08/13/2023 for type 1 diabetes. she is on U-500 and sensor pump. 12 AM 2, 8 AM 2.2, 10 PM 2 ICR 1:5, ISS: 1:20, 73/27 %, TDD 67. a1C 7.7 BG 251, on metformin 1000 mg bid. lab ACTH 30, CORTISOL 13, TSH,FT,FT3 WNL, GFR >60, al/cr 321, LDL 76, TG 226,TG 159, CPEPTIDE <0.1. Interim History: 05/2023 Follow-up visit of 05/21/2023 for type 1 diabetes. she is on U-500 and sensor pump. 12 AM 2, 8 AM 2.2, 10 PM 2 ICR 1:5, ISS: 1:20, avg 3.1, avg 222, 77/23 %, TDD 63. a1C 8.1 BG 182, on metformin 1000 mg bid. does not like dexcomG7 since gave her different readings . wants to check her for Adam's disease since her mother had it. Interim History: 01/2023 Follow-up visit of 01/16/2023 for type 1 diabetes. she is on U-500 and sensor pump. 12 AM 2, 8 AM 2.2, 10 PM 2 ICR 1:5, ISS: 1:20, avg 3.2, avg 237, 53/47 %, TDD 90, BG 207, on metformin 1000 mg bid. Interim History: 10/2022 Follow-up visit of 10/17/2022 for type 1 diabetes. she is on U-500 and sensor pump. 12 AM 1.6, 8 AM 2, 10 PM 1.8 ICR 1:7, ISS: 1:20, avg 3.9, avg 230, 73/37 %, TDD 71, BG 207, on metformin 1000 mg bid. lab on 09/2022 TC 156, HDL 32, TG 261, LDL 72, AL/CR 13, VIT D 36. Interim History: 07/2022. Follow-up visit of 07/24/2022 for type 1 diabetes. she is on U-500 and sensor pump. 12 AM 1.6, 8 AM 2, 10 PM 1.8 ICR 1:7, ISS: 1:20, avg 3.3, avg 240 , 70/30 %, on metformin 1000 mg bid, back on 02/2018 c peptide <0.1 Interim History: 04/2022. Follow-up visit of 04/10/2022 for type 1 diabetes. Now, she is on U-500 and sensor pump. 12 AM 1.6, 8 AM 2, 10 PM 1.8 ICR 1:7, ISS: 1:20, avg 3.1, avg 221, 67/33% , lab on 03/2022 GFR 50, CR 1.7, TC 149, HLD 30 , TG 204, LDL 89, AL/CR 466 Interim History: 12/2021. Follow-up visit of 12/20/2021 for type 1 diabetes. Now, she is on U-500 and sensor pump. 12 AM 1.6, 8 AM 2, 10 PM 1.8 ICR 1:7, ISS: 1:20, avg 3.2, avg 207, 70/30% Interim History: 09/2021. Follow-up visit of 09/19/2021 for type 1 diabetes. Now, she is on U-500 and sensor pump. 12 AM 1.6, 8 AM 2, 10 PM 1.8 ICR 1:10, ISS: 1:22, low 66, high 478, avg 3.4, avg 234, 63/37% Interim History: 06/2021. Follow-up visit of 06/14/2021 for type 1 diabetes. Now, she is on U-500 and sensor pump. 12 AM 1.6, 8 AM 2, 10 PM 1.8 ICR 1:10, ISS: 1:22, low 43, high 467, avg 3.2, avg 228, 70/30% Interim History: 02/2021. Follow-up visit of 03/02/2021 for type 1 diabetes. Now, she is on U-500 and sensor pump. 12 AM 1, 8 AM 1.3, 10 PM 1 ICR 1:10, ISS: 1:22, low 76, high 443, avg 3.1, avg 268, 44/56% Interim History: 06/2020. Follow-up visit of for type 1 diabetes. Now, she is on U-500 and sensor pump. she is on 0.9 units per hour. ICR 1:10, ISS: 1:25, low 50, high 426, avg 3.2, avg 235. Interim History: 03/2020. Follow-up visit of 04/05/2020 for type 1 diabetes. Now, she is on U-500 and sensor pump. she is on 0.8 units per hour. ICR 1:10, ISS: 1:25, low 48, high 426, avg 3.1, avg 231. Interim History: 12/2019. Follow-up visit of 01/01/2020 for type 1 diabetes. Now, she is on U-500 and sensor pump. she is on 0.8 units per hour. ICR 1:10, ISS: 1:25 Interim History: 09/2019. Follow-up visit of 10/01/2019 for type 1 diabetes. Now, she is on U-500 and sensor pump. Meter downloaded; lowest 35, highest 438, average 4.1 per day, and average 239, 42 basal, 58 bolus, and total daily dose of 44 units of U-500 and she is on 0.8 units per hour. ICR 1:10, ISS: 1:25. Interim History: 06/28. Followup visit on 06/18/19 for type 1 diabetes. A1c in the office is 9.5. Blood sugar 367. Meters: Pump download; lowest 54, highest 479, average 3.7 per day, average 258. She is using 48 basal, 52 bolus, and total daily dose 117. Basal rate 12:00 a.m. 2, 4:00 a.m. 2.3, 8:00 a.m. 2.5, 6:00 p.m. 2.8, 10:00 p.m. 2.2, ICR 1:3, and ISS 1:15. She is doing a good job, checking her blood sugar 3 to 4 times a day, but always her blood sugar is on the high side with severe insulin resistance, so I am thinking to switch her to U-500 and size the pump to decrease the amount of the insulin she delivered. Interim history: 02/2019 Follow-up visit 02/13/19 for type 1 diabetes. A1c in the office 11.9, blood sugar 287. Lowest 38, highest 484, four day average 263 with insulin pump settings - 4 AM 1.8; 8 AM 2.2; 6 PM 2.4; 10 PM 2; ICR 1:4; ISS 1:25. 30-day average bolus 43, basal 57, total daily dose 87 units. Interim History 11/2018: Followup visit on 11/12/2018 for type 1 diabetes. A1c in the office is 9.2. Blood sugar 352. Downloaded pump: Lowest is 44, highest 470, average 221, standard deviation 97. Total daily dose 75 units, 61% basal, 39% bolus. Basal rate 12 a.m. 1.8; 4 a.m. 2; 8 a.m. 2.2; 6 p.m. 2.4; 10 p.m. 2. ICR 1:4. ISS 1:30. Problem with her throat, and she was on 1 month of antibiotics and plans to see ENT soon. Interim history: 06/2018 Follow-up visit 06/25/2018 for type 1 diabetes. She is on OmniPod insulin. Basal 1.8, insulin:carb ratio 1:5, insulin sensitivity factor 1:30. Download pump: lowest 31, highest high average 233, around 55 basal, 45 bolus. A1c in the office 9.5, blood sugar 344. Used to be on Lantus 40 twice a day and Humalog 10 units every meal. Interim History 02/25: Followup visit on 02/12/2018 for type 1 diabetes. Labs showing kidney function within normal limits. She has microalbuminuria, albumin/creatinine 278. LDL 129, total cholesterol 189, HDL 33, triglycerides 125, C-peptide less than 0.1, vitamin D 79. She gets 50,000 once a week. Meter showing lowest 21, highest high, average 277. She is on Lantus 40 twice a day, Humalog 6-8-10 according to meal size or ICR 1:5, plus ISS 1:12. Metformin 500 twice a day. HPI: 12/26 Followup patient for type I diabetes since age 1. A1c in the office 10, blood sugar 218. Meter download was 21, highest high average 309, 4.8 readings per day, 143 reading for 2 weeks. She is on Lantus 40 in the morning and 40 afternoon, 20 at bedtime. NovoLog only sliding scale, average 2-10 units, not taking enough. Metformin 500 two tablets twice a day. She has numbness and tingling. No ulcers. Due for eye exam. SUBJECTIVE: MEDICATIONS: Current Outpatient Medications Medication Instructions albuterol HFA (Ventolin HFA) 90 mcg/act inhaler 2 puffs, Every 6 hours PRN amLODIPine (NORVASC) 5 mg, Oral, Daily aspirin 81 mg, Daily buPROPion XL (WELLBUTRIN XL) 300 mg, Daily citalopram (CELEXA) 40 mg, Every 24 hours famotidine (PEPCID) 20 mg, Daily fluticasone-salmeterol (Advair) 230-21 MCG/ACT inhaler 2 puffs, 2 times daily RT furosemide (Lasix) 80 MG tablet 1 tablet, Daily glucose blood (Contour Next Test) test strip USE TO TEST BLOOD SUGARS SIX TIMES A DAY. glucose blood test strip use 1 TEST STRIP to TEST BLOOD SUGAR every 4 hours Insulin Disposable Pump (Omnipod DASH Pods, Gen 4,) misc CHANGE POD EVERY 24 HOURS DIRECTED insulin regular (HumuLIN R) 500 UNIT/ML CONCENTRATED injection USE 450 units TOTAL daily per insulin pump levETIRAcetam (KEPPRA) 500 mg, 2 times daily levothyroxine (SYNTHROID) 100 mcg, Daily before breakfast LORazepam (ATIVAN) 1 mg, Every 8 hours losartan (COZAAR) 100 mg, Every 24 hours metFORMIN (GLUCOPHAGE) 1,000 mg, Oral, 2 times daily with meals omeprazole (PRILOSEC) 40 mg, Daily before breakfast potassium chloride CR (Klor-Con) 10 MEQ ER tablet 10 mEq, 2 times daily risperiDONE (RISPERDAL) 4 mg, Daily simvastatin (ZOCOR) 20 mg, Nightly Vitamin D, Ergocalciferol, 67094 units capsule 1 tablet, Weekly ALLERGIES: Allergies Allergen Reactions Codeine Hydrocodone Throat swelling, vomiting Morphine GI intolerance vomiting Oxcarbazepine Other Reaction(s): tightness in chest Penicillin G Hives Penicillins Valproic Acid Other Reaction(s): Trouble Breathing Lamotrigine Rash Past Medical History: Diagnosis Date Anxiety Congestive heart failure (CHF) (CMS/HCC) Essential (primary) hypertension (CMS/HCC) 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 (CMS/HCC) 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) Migraine (CMS/HCC) Presence of insulin pump (external) (internal) Proteinuria, unspecified Seizures (CMS/HCC) Sleep apnea Torn meniscus 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 (CMS/HCC) Vitamin D deficiency, unspecified Past Surgical History: Procedure Laterality Date CARPAL TUNNEL RELEASE Right SECTION, CLASSIC x 2 CHOLECYSTECTOMY COLONOSCOPY Polp removal CYST REMOVAL Back, face and right upper arm cyst removal CYST REMOVAL Removed from vocal chords HYSTERECTOMY ROTATOR CUFF REPAIR Left REVIEW OF SYMPTOMS: 14 POINT OF SYSTEM REVIEWED AND NEGATIVE OBJECTIVE: Constitutional: Afebrile @ home; no weakness or night sweats SKIN: No change in skin color; no itching, rash or lesions; no hair loss; HEENT: No HAs or injury; no dizziness; No difficulty with vision; no eye pain, discharge or lesions; no hearing loss or difficulty; no nasal discharge, NECK: No pain, limitation of motion, lumps or swollen glands RESP: No cough, wheezing or difficulty breathing. No CP with breathing; CARDIO: No CP , SOB or fatigue, No edema, palpitations or dyspnea with exertion GI: No N/V/D or abd. pain; good appetite with no recent change. No heart burn, liver or gallbladder disease; no rectal bleeding or pain : No urinary pain , frequency or odor. MUSCULOSKELETAL: No muscle pain or cramps; no extremity weakness.No joint pain, stiffness, swelling or limitation of movement NEUROLOGY: No H/O seizures, stroke or fainting. No weakness, tremors. Hematology: No bleeding problems or excessive bruising ENDOCRINE: No increase in hunger, thirst or urination; admits compliance to medical management plan Feet: numbness tingling , ulcers or skin break Lab Results Component Value Date HGBA1C 7.9 06/23/2024 Lab Results Component Value Date GLU 361 06/23/2024 GLU 249 (H) 12/10/2018 GLU 254 (H) 10/18/2018 Visit Vitals BP 160/60 Pulse 98 Resp 18 Ht 5' 5.5 Wt 361 lb BMI 59.16 kg/m Smoking Status Former BSA 2.75 m ASSESSMENT AND PLAN: Assessment/Plan Diagnoses and all orders for this visit: Type 1 diabetes mellitus with hyperglycemia (HCC) ([facility]) - POCT glucose manually resulted - POCT glycosylated hemoglobin (Hb A1C) docked device - metFORMIN (Glucophage) 500 MG tablet; Take 2 tablets (1,000 mg) by mouth in the morning and 2 tablets (1,000 mg) in the evening. Take with meals. 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 documented in this encounter [facility] Clinical Note 06-03-2024 Note Date & Type [...] chloride 10 mEq (more content not included)... [facility] Comment on above: Result Comment: Elec tronically Signed By: AILYN CHENG, Kobe Radford\Date and Time Signed: 06/03/24 16:38 EDT Clinical [...] 85% of maximum predicted heart rate. [facility] Evaluation + Plan note Note Date & Type Note Facility Evaluation + Plan note Future Appointments Appointment Date:06/18/2024 03:00:00 PM Scheduled Provider:Kobe ROBERTSON MD Location:[facility] Appointment Type:[facility] 30 [facility] Evaluation + Plan note Note Date & Type Note Facility Evaluation + Plan note Future Appointments Appointment Date:06/24/2024 02:00:00 PM Scheduled Provider:Kobe ROBERTSON MD Location:[facility] Appointment Type:[facility] 15 [facility] Evaluation note Note Date & Type Note Facility Evaluation note Diagnosis Type 1 diabetes mellitus with hyperglycemia (HCC) ([facility]/HCC)- Primary Vitamin D deficiency Encounter for dietary consultation Insulin long-term use ([facility]) Encounter for long-term (current) use of insulin Microalbuminuria Proteinuria Insulin pump in place Insulin pump status Encounter for fitting or adjustment of insulin pump Fitting and adjustment of insulin pump Primary hypertension ([facility]/HCC) Unspecified essential hypertension 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 ([facility]) documented in this encounter [facility] Hospital course Narrative Note Date & Type Note Facility Hospital course Narrative No data available for this section [facility] Hospital Discharge instructions Note Date & Type Note Facility Hospital Discharge instructions No data available for this section [facility] Progress note Note Date & Type Note Facility Progress note No data available for this section [facility] Summary Purpose Family History No Family History Records FoundNo Family History Records Found No data available for this section No data available for this section No data available for this section No Family History Records FoundNo Family History Records Found No data available for this section No Family History Records FoundNo Family History Records FoundNo Family History Records Found Advance Directives No Advanced Directives Records FoundNo Advanced Directives Records FoundNo Advanced Directives Records FoundNo Advanced Directives Records FoundNo Advanced Directives Records FoundNo Advanced Directives Records FoundNo Advanced Directives Records Found Additional Source Comments INFORMATION SOURCE (unrecogn ized section and content) DATE CREATED AUTHOR 10/02/2021 [facility] DATE CREATED AUTHOR AUTHOR'S ORGANIZ ATION 01/23/2023 [facility] DATE CREATED AUTHOR AUTHOR'S ORGANIZ ATION 06/24/2024 [facility] EPIC DATE CREATED AUTHOR AUTHOR'S ORGANIZ ATION 06/26/2024 [facility] DATE CREATED AUTHOR AUTHOR'S ORGANIZ ATION 06/27/2024 [facility] DATE CREATED AUTHOR AUTHOR'S ORGANIZ ATION 07/06/2024 [facility] DATE CREATED AUTHOR AUTHOR'S ORGANIZ ATION 08/22/2024 [facility] Patient Care team informatio n (unrecognized section and content) Neurodiagnostic Tech Relationship Specialty Start Date End Date Lorenzo Cortez MD [address] [place] [phone] PCP - General Family Medicine 12/18/23 Neurodiagnostic Tech Relationship Specialty Start Date End Date Lorenzo Cortez MD [address] [place] [phone] PCP - General Family Medicine 12/18/23 Reason for Visit (unrecogniz ed section and content) Reason Comments Diabetes Follow-up FOR RECORDS PERTAINING TO PATIENTS WHO ARE [...] BE BASED ON THE PRIMARY CLINICAL RECORDS. [employer] provides no warranty or guarantee of the accuracy or completeness of information in this document.
[2024-08-26 12:12] LABS: Basophils Absolute Auto 0.1 10^3/uL (0.0-0.1); Basophils Percent Auto 1.1 % (0.2-2.0); Eosinophils Absolute Auto 0.1 10^3/uL (0.0-0.7); Eosinophils Percent Auto 1.2 % (0.9-7.0); Hematocrit 36.8 % (36.0-48.0); Hemoglobin 12.6 g/dL (12.0-16.0); Immature Granulocytes Abs Auto 0.04 10^3/uL (0.00-0.03); Immature Granulocytes Pct Auto 0.5 % (0.0-0.5); Lymphocytes Absolute Auto 1.9 10^3/uL (1.2-3.8); Mean Corpuscular HGB Conc 34.2 g/dL (29.9-35.2); Mean Corpuscular Hemoglobin 28.1 pg (26.7-34.0); Mean Corpuscular Volume 82.1 fL (81.0-99.0); Mean Platelet Volume 10.5 fL (9.5-13.5); Monocytes Absolute Auto 0.4 10^3/uL (0.3-0.8); Monocytes Percent Auto 5.7 % (1.7-12.0); Neutrophils Absolute Auto 4.9 10^3/uL (1.4-6.5); Neutrophils Percent Auto 66.5 % (43.0-75.0); Platelet Count 276 10^3/uL (150-450); Red Blood Count 4.48 10^6/uL (4.20-5.40); Red Cell Distribution Width 12.9 % (11.0-15.0); White Blood Count 7.4 10^3/uL (4.0-11.0)
[2024-08-26 12:23] LABS: Estimated Average Glucose 192 mg/dL; Glycohemoglobin A1C 8.3 % (4.5-6.2)
[2024-08-26 12:38] LABS: Alanine Aminotransferase 53 U/L (14-59); Albumin Globulin Ratio 1.1; Albumin Level 3.9 g/dL (3.4-5.0); Alkaline Phosphatase 120 U/L (46-116); Anion Gap 13.9; Aspartate Amino Transferase 36 U/L (15-37); BUN Creatinine Ratio 11.2; Bilirubin Total 0.6 mg/dL (0.2-1.0); Calcium 9.2 mg/dL (8.5-10.1); Carbon Dioxide 28.6 mmol/L (21.0-32.0); Chloride 99 mmol/L (98-107); Chol HDL Ratio 4.7; Cholesterol 165 mg/dL (<=200); Estimated GFR (African America >60 (>=60 mL/min/1.73m^2); Estimated GFR (Non-African Ame 51 (>=60 mL/min/1.73m^2); Free T3 2.62 pg/mL (2.18-3.98); Globulin 3.4 g/dL; Glucose 234 mg/dL (74-106); HDL Cholesterol 35 mg/dL (40-60); Potassium 4.5 mmol/L (3.5-5.1); Sodium 137 mmol/L (136-145); Thyroid Stimulating Hormone 2.818 uIU/mL (0.358-3.740); Total Protein 7.3 g/dL (6.4-8.2); Triglycerides 197 mg/dL (<=150); Troponin I High Sensitivity 10.2 pg/mL (4.0-51.3); VLDL CHOLESTEROL 39.4 mg/dL
[2024-08-26 14:29] LABS: Internal Control Within Normal Limits; Occult Blood Positive
== END 2024-08-26 11:41 | disposition home or self-care (01) ==
LOC: LAB 11:48
PROVIDERS: PCP Family Medicine; Visit Provider Family Medicine
DX: E66.01 Morbid (severe) obesity due to excess calories (principal); E10.3593 Type 1 diabetes mellitus with proliferative diabetic retinopathy without macular edema, bilateral; R22.0 Localized swelling, mass and lump, head; R53.83 Other fatigue; I10 Essential (primary) hypertension
CPT/HCPCS: 36415; 80053; 80061; 82306; 83036; 83525; 83540; 83880; 84436; 84443; 84481; 84484; 85025; G0328

== ENCOUNTER 2024-09-05 10:16 | Outpatient (OUT) | payer MEDICARE, MEDICAID, SELFPAY ==
--- NOTE | 2024-09-05 10:20 | US_ITS ---
The [place] [id number] Patient Name: YANICK JEFFREY MRN: [id number] date: 1980 Sex: F Assigned Patient Location: US Current Patient Location: Accession/Order Number: [id number] Exam Date: 09/05/2024 10:33 Report Date: 09/08/2024 12:45 At the request of: LORENZO CARLSON Procedure: US soft tissue head and neck EXAMINATION: US soft tissue head and neck HISTORY: R22.1 LOCALIZED SWELLING COMPARISON: No relevant comparison available. FINDINGS: Several lymph nodes within left neck in area of swelling with each maintaining a normal-appearing fatty hilum and thin hypoechoic cortex; largest is 9 x 9 x 15 mm. No significant hypervascularity, mass, or fluid collection. US/US soft tissue head and neck IMPRESSION: 1. Several lymph nodes within left neck area of swelling; no overtly suspicious findings. Electronically authenticated by: FLORA DERAS Date: 09/08/2024 12:45
== END 2024-09-05 10:17 | disposition home or self-care (01) ==
LOC: US 10:16
PROVIDERS: PCP Family Medicine; Visit Provider Family Medicine
DX: R59.0 Localized enlarged lymph nodes (principal); E66.01 Morbid (severe) obesity due to excess calories
CPT/HCPCS: 76536

== ENCOUNTER 2024-09-27 08:21 | Outpatient (OUT) | payer MEDICARE, MEDICAID, SELFPAY ==
--- NOTE | 2024-09-27 | CT_ITS ---
The [address] [address] Patient Name: YANICK JEFFREY MRN: [id number] date: 1980 Sex: F Assigned Patient Location: LAB Current Patient Location: Accession/Order Number: [id number] Exam Date: 09/27/2024 09:55 Report Date: 09/29/2024 08:05 At the request of: LORENZO CARLSON Procedure: CT soft tissue neck w con CT soft tissue neck w con, 09/27/2024 9:55 AM EST INDICATION: R59.9 Lymph nodes enlarged COMPARISON: Prior CT of the neck dated 01/17/2024 and ultrasound of thyroid dated 06/10/2024 and 09/05/2024 TECHNIQUE: CT imaging of the neck were acquired with contrast. Supplemental 2D reformatted images were generated and reviewed as needed. Dose reduction techniques were achieved by using automated exposure control and/or adjustment of mA and/or kV according to patient size and/or use of iterative reconstruction technique. FINDINGS: No abnormality of the base of skull is noted. The nasopharynx, oropharynx, hypopharynx and oral cavity are unremarkable. 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 The parotids, submandibular glands are unremarkable. The larynx is unremarkable. No abnormality of paraglottic fat is noted. There is no lymph node enlargement by size criteria. No retropharyngeal lymph node is noted. The thyroid gland is homogeneous. The visualized portions of lungs are unremarkable. There is no suspicious osteolytic or osteoblastic lesion. There are multilevel degenerative changes of cervical spine. CT/CT soft tissue neck w con IMPRESSION: No lymphadenopathy by size criteria in the current study is noted. Electronically authenticated by: GILBERTO MONTERO Date: 09/29/2024 08:05
--- OUTSIDE RECORDS SUMMARY | 2024-09-27 08:23 | XMS_ITS | CCD ---
Author Organization [facility] Care Team Providers Care Doughnut Maker Name Role Phone NOÉHEIMCARMENIL Attending Unavailable EBRAHEIM, TONYA Admitting Unavailable UNKNOWN, [...] Unavailable HOY ., DR VENTURA Consulting Unavailable [place], DR EDNA Carlson Consulting Unavailable HOY ., [...] Unavailable HOY ., DR VENTURA Admitting Unavailable DIEGO ., DR VENTURA Consulting Unavailable WEST, DR EDNA Carlson Consulting Unavailable Lorenzo Cortez Primary Care Physician [phone] THALIA METCALF Attending Unavailable LORENZO CORTEZ Referring Unavailable THALIA METACLF Attending Unavailable CARLOS, AHMABrice F Attending Unavailable CARLOS, TREVONMABrice F Referring Unavailable Lorenzo Cortez MD Primary Care Provider [phone] Castillo Choudhary Attending Unavailab le Castillo Choudhary Admitting Unavailab Lorenzo Benito Primary Care Unavailable NILL, Kobe Davidson Attending Unavailable NILL, Kobe Davidson Attending Unavailable Lorenzo Cortez Referring Unavailable NILL, Kobe Davidson Attending Unavailable NILL, Kobe R Attending Unavailable NILL, Kobe R Admitting Unavailable NILL, Kobe R Attending Unavailable Lorenzo Cortez Referring Unavailable Allergies Allergy Classification Reported Allergen(s) Allergy Type Date of Onset Reaction(s) Facility (3 sources) Acetaminophen / HYDROcodone; Translations: [Vicodin] Drug Allergy 3 [facility] Repository (3 sources) Acetaminophen / HYDROcodone; Translations: [Lortab] Drug Allergy 6 [facility] Repository (1 source) Adhesive agent Drug allergy (disorder) 3 [facility] Repository (3 sources) Amino Acids; Translations: [lisinopril] Drug Allergy 6 [facility] Repository (3 sources) lamoTRIgine; Translations: [LaMICtal] Drug Allergy 3 [facility] Repository (3 sources) Morphine; Translations: [morphine] Drug Allergy 3 [facility] Repository (3 sources) OXcarbazepine; Translations: [Trileptal] Drug Allergy 3 [facility] Repository (1 source) Penicillins Drug allergy (disorder) 3 [facility] Repository (3 sources) Valproate; Translations: [Depakote] Drug Allergy 3 [facility] Repository (10 sources) Acetaminophen / HYDROcodone; Translations: [acetaminophen-hy drocodone] Drug Allergy Edema of pharynx (disorder) [facility] (5 sources) lamoTRIgine; Translations: [lamotrigine] Drug Allergy Cutaneous eruption (morphologic abnormality) [facility] (5 sources) Lisinopril; Translations: [lisinopril] Drug Allergy Edematous skin (disorder) [facility] (8 sources) Morphine; Translations: [morphine] Drug Allergy 4 Vomiting (disorder), GI intolerance [facility] (5 sources) OXcarbazepine; Translations: [oxcarbazepine] Drug Allergy Edema of pharynx (disorder) [facility] (7 sources) Penicillin; Translations: [penicillin] Drug Allergy Cutaneous eruption (morphologic abnormality) [facility] (5 sources) Valproate; Translations: [divalproex sodium] Drug Allergy Edema of pharynx (disorder) [facility] (3 sources) Codeine Drug Allergy 4 [facility] (3 sources) HYDROcodone Drug Allergy 4 [facility] Work Phone: (3 sources) Lamotrigine Allergy to substance 4 Rash [facility] (3 sources) Oxcarbazepine Allergy to substance 4 [facility] (3 sources) Penicillin G Drug Allergy 4 Hives [facility] (3 sources) Penicillins Propensity to adverse reactions 4 [facility] (3 sources) Valproate Drug Allergy 4 [facility] Medications Current Medications Medication Drug Class(es) Dates Sig (Normalized) Sig (Original) Advair HFA 230 mcg-21 mcg/inh inhalation aerosol with adapter (1 source) Start: 09-12-2024 take 2 puff(s) by inhalation twice daily Advair HFA 230 mcg-21 mcg/inh inhalation aerosol with adapter 2 puff(s), Inhalation, BID Start Date: 09/12/24 Status: Ordered Albuterol (8 sources) beta2-Adrenergic Agonist Start: 05-28-2024 take 2 puff(s) by inhalation every six hours Albuterol (Eqv-ProAir HFA) 2 puff(s), Inhalation, q6hr Shortness of breath or wheezing, Refill(s) 0 Start Date: 05/28/24 Status: Ordered take 2 puff(s) by in halation every six hours albuterol HFA (Ventolin HFA) 90 mcg/act inhaler Inhale 2 puffs every 6 (six) hours if needed Active amLODIPine 10 mg oral tablet (7 sources) Dihydropyridine Calcium Channel Lester Start: 09-12-2024 take 1 tablet by mouth once daily amLODIPine 10 mg Tab 10 mg = 1 tab(s), Oral, Daily, Refills(s) 0 Start Date: 09/12/24 Status: Ordered Start: 05-28-2024 take 1 tablet by liz th once daily amLODIPine 5 mg Tab 5 mg = 1 tab(s), Oral, Daily, Refills(s) 0 Start Date: 05/28/24 Status: Ordered aspirin 81 mg delayed release oral tablet (8 sources) Platelet Aggregation Inhibitor, Nonsteroidal Anti-inflammatory Drug Start: 05-20-2021 take 1 tablet by mouth once daily aspirin 81 mg Oral EC Tab 81 mg = 1 tab(s), Oral, Daily, Refills(s) 0 Start Date: 05/20/21 Status: Ordered 24 hr buPROPion hydrochloride 300 mg extended release oral tablet (8 sources) Aminoketone Start: 03-27-2019 take 1 tablet by mouth once daily Wellbutrin XL 300 mg/24 hours Tab-ER 300 mg = 1 tab(s), Oral, Daily Start Date: 03/27/19 Status: Ordered citalopram 40 mg oral tablet (8 sources) Serotonin Reuptake Inhibitor Start: 05-28-2024 take [...] by mouth every week Vitamin D, Ergocalciferol, 10001 units capsule Take 1 tablet by mouth 1 (one) time per week Active famotidine 20 mg oral tablet (8 sources) Histamine-2 Receptor Antagonist Start: 03-27-20 19 take 1 tablet by mouth twice daily famotidine 20 mg Tab 20 mg = 1 tab(s), Oral, BID Start Date: 03/27/19 Status: Ordered take 1 tablet by mouth once blake y famotidine (Pepcid) 20 MG tablet Take 20 mg by mouth Daily Active ferrous sulfate 325 mg oral tablet (5 sources) Start: 05-28-2024 take 1 tablet by [...] swallow.. Active furosemide 80 mg oral tablet (8 sources) Loop Diuretic Start: 03-27-2019 take 1 [...] insulin, regular, human 500 unt/ml injectable solution (10 sources) Insulin Start: 06-23-2024 inject 450 [IU] [...] Status: Ordered levETIRAcetam 500 mg oral tablet (8 sources) Start: 05-18-2021 take 1 tablet by mouth twice daily levetiracetam 500 mg Tab 500 mg = 1 tab(s), Oral, BID Start Date: 05/18/21 Status: Ordered levothyroxine sodium 0.1 mg oral tablet (8 sources) l-Thyroxi ne Start: 05-18-2021 take 1 tablet by mouth once daily levothyroxine 100 mcg (0.1 mg) Tab 100 mcg = 1 tab(s), Oral, Daily Start Date: 05/18/21 Status: Ordered take 1 tablet by mouth before me altime levothyroxine (Synthroid) 100 MCG tablet Take 100 mcg by mouth in the morning. Take before meals. Active LORazepam 1 mg oral tablet (8 sources) Benzodiazepine Start: 03-27-2019 take 1 tablet [...] Active losartan potassium 100 mg oral tablet (8 sources) Angiotensin 2 Receptor Lester Start: 05-28-2024 [...] Active metFORMIN hydrochloride 500 mg oral tablet (10 sources) Biguanide Start: 06-23-2024 End: 2024 take [...] omeprazole 40 mg delayed release oral capsule (8 sources) Proton Pump Inhibitor Start: 03-27-2019 take 1 capsule by mouth once daily omeprazole 40 mg Cap-DR 40 mg = 1 cap(s), Oral, Daily Start Date: 03/27/19 Status: Ordered risperiDONE 2 mg oral tablet (8 sources) Atypical Antipsychotic Start: 03-27-2019 take 1 tablet by mouth at bedtime Risperdal 2 mg Tab 2 mg = 1 tab(s), Oral, Bedtime Start Date: 03/27/19 Status: Ordered simvastatin 20 mg oral tablet (8 sources) HMG-CoA Reductase Inhibitor Start: 05-18-2021 take 1 tablet by mouth once daily at bedtime simvastatin 20 mg Tab 20 mg = 1 tab(s), Oral, Once a day (at bedtime) Start Date: 05/18/21 Status: Ordered Vitamin D (5 sources) Start: 04-09-2019 take 1 capsule by mouth every week Vitamin D = 1 cap(s), Oral, qWeek, Refills(s) 0 Start Date: 04/09/19 Status: Ordered Completed/Discontinued Medications Medication Drug Class(es) Dates Sig (Normalized) Sig (Original) potassium chloride 10 meq oral tablet (8 sources) Start: 03-27-2019 take 1 tablet by mouth twice daily potassium chloride 10 mEq ER Tab 10 mEq = 1 tab(s), Oral, BID Start Date: 03/27/19 Status: Ordered potassium chlori de CR (Klor-Con) 10 MEQ ER tablet 10 mEq in the morning and 10 mEq before bedtime. Active Problems Active Problems Problem Classification Problem Date Documented Da te Episodic/Chronic Abdominal pain (8 sources) Epigastric pain; Translations: [Epigastric pain] Onset: 4 05-28-2024 Episodic Administrative/social admission (2 sources) Patient encounter status; Translations: [Dietary counseling and surveillance] 06-23-2024 Episodic Anxiety disorders (13 sources) Anxiety; Translations: [Mixed anxiety and depressive disorder] Onset: 4 03-27-2019 Chronic Congestive heart failure; nonhypertensive (1 source) Unspecified diastolic (congestive) heart failure; Translations: [UNSPECIFIED DIASTOLIC HEART FAILURE] Onset: 3 Chronic Diabetes mellitus with complications (20 sources) 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; Translations: [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] Onset: 2 Chronic Diabetes mellitus without complication (13 sources) Type 1 diabetes mellitus; Translations: [Type 2 diabetes mellitus without complication] Onset: 2 05-20-2021 Chronic Diabetes mellitus without complication (2 sources) Insulin pump present; Translations: [Presence of insulin pump (external) (internal)] 06-23-2024 Episodic Diseases of mouth; excluding dental (9 sources) Mucocele of salivary gland; 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] Onset: 3 Episodic Epilepsy; convulsions (6 sources) Epilepsy; Translations: [Epilepsy, unspecified, not intractable, without status epilepticus] Onset: 2 12-18-2023 Chronic Epilepsy; convulsions (5 sources) Seizure disorder 03-27-2019 Episodic Esophageal disorders (11 sources) Gastroesophageal reflux disease; Translations: [Laryngopharyngeal reflux] Onset: 4 03-27-2019 Chronic Essential hypertension (15 sources) Essential (primary) hypertension; Translations: [Hypertensive disorder] Onset: 2 Chronic Genitourinary symptoms and ill-defined conditions (2 sources) Microalbuminuria; Translations: [Proteinuria, unspecified] 06-23-2024 Episodic Headache; including migraine (8 sources) Migraine; Translations: [Migraine, unspecified, not intractable, without status migrainosus] Onset: 4 05-18-2021 Chronic Hypertension with complications and secondary hypertension (5 sources) Hypertensive heart disease with heart failure; Translations: [HTN HEART DISEASE W/HEART FAIL] Onset: 2 Chronic Mood disorders (11 sources) Bipolar I disorder; Translations: [Bipolar disorder, unspecified] Onset: 2 05-28-2024 Chronic Nausea and vomiting (8 sources) Nausea; Translations: [Nausea] Onset: 4 05-28-2024 Episodic Neoplasms of unspecified nature or uncertain behavior (8 sources) Neoplasm of uncertain behavior of skin; Translations: [Neoplasm of uncertain behavior of skin] Onset: 4 Episodic Nutritional deficiencies (3 sources) Vitamin D deficiency, unspecified; Translations: [Vitamin D deficiency] Onset: 3 06-23-2024 Chronic Other aftercare (5 sources) Long-term current use of insulin; 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] Onset: 4 01-17-2024 Episodic Other and unspecified benign neoplasm (8 sources) Benign neoplasm of transverse colon; Translations: [Benign neoplasm of transverse colon] Onset: 4 06-22-2021 Episodic Other and unspecified benign neoplasm (2 sources) History of polyp of colon; Translations: [Personal history of adenomatous and serrated colon polyps] Onset: 5 Episodic Other connective tissue disease (8 sources) Diastasis recti; Translations: [Separation of muscle (nontraumatic), other site] Onset: 4 04-09-2019 Episodic Other gastrointestinal disorders (8 sources) Irritable bowel syndrome; Translations: [Irritable bowel syndrome without diarrhea] Onset: 4 06-22-2021 Chronic Other gastrointestinal disorders (8 sources) Abdominal bloating; Translations: [Abdominal distension (gaseous)] Onset: 4 05-28-2024 Episodic Other gastrointestinal disorders (1 source) Abnormal feces; Translations: [Other fecal abnormalities] Onset: 5 Episodic Other gastrointestinal disorders (2 sources) Occult blood in stools 09-12-2024 Episodic Other hereditary and degenerative nervous system conditions (5 sources) Essential tremor 05-28-2024 Chronic Other nutritional; endocrine; and metabolic disorders (12 sources) Body mass index 30+ - obesity; Translations: [Obesity, unspecified] Onset: 4 04-09-2019 Chronic Other nutritional; endocrine; and metabolic disorders (1 source) Obese class III 09-23-2024 Chronic Other skin disorders (2 sources) Hypertrophic condition of skin; Translations: [Other hypertrophic disorders of the skin] Onset: 4 Episodic Other skin disorders (8 sources) Epidermoid cyst of skin of face; Translations: [Epidermal cyst] Onset: 4 04-09-2019 Episodic Other skin disorders (5 sources) Multiple skin tags 06-03-2024 Episodic Other upper respiratory disease (8 sources) Chronic laryngitis; Translations: [Chronic laryngitis] Onset: 4 Resolved: 4 05-28-2024 Chronic Other upper respiratory disease (5 sources) Lesion of vocal cord 05-28-2024 Episodic Other upper respiratory infections (3 sources) Chronic sinusitis; Translations: [Chronic sinusitis, unspecified] Onset: 4 12-18-2023 Chronic Phlebitis; thrombophlebitis and thromboembolism (5 sources) H/O: Deep vein thrombosis 05-28-2024 Episodic Residual codes; unclassified (8 sources) Sleep apnea; Translations: [Sleep apnea, unspecified] Onset: 4 05-25-2021 Chronic Residual codes; unclassified (8 sources) Family history of cancer of colon; Translations: [Family history of malignant neoplasm of digestive organs] Onset: 4 05-20-2021 Episodic Spondylosis; intervertebral disc disorders; other back problems (8 sources) Cervical disc disorder; Translations: [Cervical disc disorder, unspecified, unspecified cervical region] Onset: 4 03-27-2019 Chronic Spondylosis; intervertebral disc disorders; other back problems (6 sources) Radiculopathy, cervical region; Translations: [Cervical radiculopathy] Onset: 3 05-28-2024 Episodic Substance-related disorders (5 sources) Cigarette smoker 05-28-2024 Chronic Thyroid disorders (5 sources) Hypothyroidism 05-28-2024 Chronic Unclassified (5 sources) Long-term current use of insulin 03-27-2019 Past or Other Problems Problem Classification Problem Date Documented Da te Episodic/Chronic Deficiency and other anemia (1 source) Anemia, unspecified; Translations: [ANEMIA UNSPECIFIED] Onset: 03-20-2022 Episodic Lymphadenitis (3 sources) Cervical lymphadenopathy; Translations: [Localized enlarged lymph nodes] Onset: 12-24-2023 12-24-2023 Episodic Other aftercare (1 source) long-term (current) use of insulin; Translations: [DETENTION CURRENT USE OF INSULIN] Onset: 10-09-2022 Episodic [...] Reference Range Facility Ambulatory Visit Summaryon 0 09-23-2024 Ambulatory Visit Summary Ambulatory Visit Summary SCAR JEFFREY :1980 Visit Date:09/23/2024 Ambulatory Visit Instructions Your Care Team Attending Physician - AILYN CHENG, Kobe Davidson Primary Care Physician - Lorenzo Cortez MD Referring Physician - Lorenzo Cortez MD This Is Your Medications List Contact prescribing physician if questions or concerns albuterol (Albuterol (Eqv-ProAir HFA)) amlodipine (amLODIPine 10 mg Tab) aspirin (aspirin 81 mg Oral EC Tab) buPROPion (Wellbutrin XL 300 mg/24 hours Tab-ER) citalopram (CeleXA 40 mg Tab) ergocalciferol (Vitamin D) famotidine (famotidine 20 mg Tab) ferrous sulfate (ferrous sulfate 325 mg Tab) fluticasone-salmeterol (Advair HFA 230 mcg-21 mcg/inh inhalation aerosol with adapter) furosemide (Lasix 80 mg Tab) insulin regular [...] (Peripheral) 72 Respiratory Rate 16 Blood Pressure 146/64 Height 167.6 cm Height 66 in Weight 112.3 kg Weight 247.579 lb BMI 39.98 Medications What How Much When Instructions Unchanged albuterol (Albuterol (Eqv-ProAir HFA)) 2 Puffs Inhalation Every 6 hours as needed for Shortness of breath or wheezing Contact prescribing physician if questions or concerns Unchanged amlodipine (amLODIPine 10 mg Tab) 1 Tablets By Mouth Every [...] prescribing physician if questions or concerns Unchanged fluticasone-salmeterol (Advair HFA 230 mcg-21 mcg/ inh inhalation aerosol with adapter) 2 Puffs Inhalation 2 times a day Contact prescribing physician [...] throat) Vicodin (Edema of throat) lisinopril (Edematous sk (more content not included)... Normal [facility] Provider Letteron 09-01-2024 Provider Letter Provider Letter September 01, 2024 SCAR JEFFREY [address] [id number] : 1980 Dear Randy Dana, We have been trying to reach you with no success regarding a referral from Dr Cortez. It is important that you return our call upon receiving this letter. Also, at the time of your call, please provide us with your current information. Thank you for your prompt attention to this matter. Sincerely, [facility] General Surgery [phone] Normal [facility] Surgical Pathology Reporton 06-25-2024 Surgical Pathology Report [address] [place] [address]- Surgical Pathology Report Collected Date/Time: 06/18/2024 15:32 [...] specified. Multiple levels are microscopically examined. Normal [facility] Comment on above: Performed By: #### [id number] #### [facility] [address] [place] [address] Ambulatory Visit Summaryon 1 Ambulatory Visit Summary [...] choosing us for your care. Malia Romero [facility] General Surgery Office/Clini c Noteon 06-24-2024 General [...] Years., 06/03/20 (more content not included)... Normal [facility] Comment on above: Result Comment: Elec tronically Signed By: AILYN CHENG, Kobe Davidson\alon\Date and Time Signed: 06/24/24 14:17 EDT Glucose (Bld) [Mass/Vol]on Glucose Blood, POC 361 mg/dL [facility] Healthcar e HbA1c (Bld) [Mass fraction]o n 06-23-2024 [facility] - Hematology and Cell countson 06-23-2024 HbA1c (Bld) [Mass fraction] 7.9 % [facility] Ambulatory Visit Summaryon 1 Ambulatory Visit Summary [...] PM EDT With: Kobe ROBERTSON MD Where: [facility] Surgery [address], [address], [place] [address]- Medications What How Much When Instructions Unchanged [...] Diastasis recti (more content not included)... Normal [facility] General Surgery Office/Clini c Noteon 06-18-2024 General [...] ER Tab (more content not included)... Normal [facility] Comment on above: Result Comment: Elec tronically [...] EDT With: AILYN CHENG, Kobe Davidson Where: [address], [address], [place] [id number]- Medications What How Much When Instructions Unchanged [...] (Rash) Pro (more content not included)... Normal [facility] CREATININEon 01-22-2023 Creatinine [Mass/Vol] 0.98 mg/dL Normal 0.55-1.02 [facility] Comment on above: Performed By: #### C NILSON #### [facility] [address] [place] [address] Dr. Keeley Hoskins EGFR-AF IRAQI >60 Normal >=60 [facility] Comment on above: Performed By: #### C NILSON #### [facility] [address] [place] [address] Dr. Keeley Hoskins EGFR-NON AF IRAQI >60 Normal >=60 [facility] Comment on above: Performed By: #### C NILSON #### [facility] [address] [place] [address] N[address]K [address] W [...] GOMEZ Date: 2023-01-22 11:08 Normal [facility] MRI CSPINE WO CONon 01-23-20 23 MRI [...] GOMEZ Date: 2023-01-22 11:04 Normal [facility] CT FACIAL BONES WO CONon CT FACIAL [...] DERAS Date: 2023-01-04 07:25 Normal [facility] XR CSPINE MIN 4 VIEWSon [...] FLORA DERAS Date: 2023-01-04 07:12 Normal [facility] C-PEPTIDE, SERUMon 3 C-Peptide, Serum <0.1 Critically low 1.1-4.4 [facility] Comment on above: Result Comment: C-Pe ptide reference interval is for fasting patients. Performed By: #### C PEPT #### [facility] [address] [place] [address] Dr. Keeley Hoskins BNPon 10-06-2022 Natriuretic peptide B (Bld) [Mass/Vol] 20.0 pg/mL Normal <=450.0 [facility] Comment on above: Performed By: #### R ENAL, LIPID #### [facility] [address] [place] [address] Dr. Keeley Hoskins LIPID PROFILEon 10-06-2022 CHOL-HDL RATIO NORM SEE BELOW Normal [facility] Comment on above: Result Comment: 3.3 - 4.4 LOW RISK 4.4 - 7.1 AVERAGE RISK 7.1 - 11.0 MODERATE RISK >11.0 HIGH RISK Performed By: #### R ENAL, LIPID #### [facility] [address] [place] [address] Dr. Keeley Hoskins Cholesterol [Mass/Vol] 156 mg/dL Normal <=200 [facility] Comment on above: Performed By: #### R ENAL, LIPID #### [facility] [address] [place] [address] Dr. Keeley Hoskins Cholesterol in HDL [Mass/Vol] 32 mg/dL Critically low 40-60 [facility] Comment on above: Performed By: #### R ENAL, LIPID #### [facility] [address] [place] [address] Dr. Keeley Hoskins Cholesterol in LDL [Mass/Vol] 71.8 mg/dL Normal [facility] Comment on above: Performed By: #### R ENAL, LIPID #### [facility] [address] [place] [address] [address] Keeley Hoskins Cholesterol.total /Cholesterol in HDL [Mass ratio] 4.9 {ratio} Normal [facility] Comment on above: Performed By: #### R ENAL, LIPID #### [facility] [address] [place] [address] [address] Keeley Hoskins HDL NORMAL > or = 60 mg/dl - LO W CARDIOVASCULAR RISK <40 mg/dl - HIGH CARDIOVASCULAR RISK Normal [facility] Comment on above: Performed By: #### R ENAL, LIPID #### [facility] [address] [place] [address] [address] Keeley Hoskins LDL CALC NORMAL SEE BELOW Normal [facility] Comment on above: Result Comment: <100 mg/dl OPTIMAL 100 - 129 mg/dl NEAR OR ABOVE OPTIMAL 130 - 159 mg/dl BORDERLINE HIGH 160 - 189 mg/dl HIGH >190 mg/dl VERY HIGH Performed By: #### R ENAL, LIPID #### [facility] [address] [place] [address] [address] Keeley Hoskins Triglyceride [Mass/Vol] 261 mg/dL Critically high <=150 [facility] Comment on above: Performed By: #### R ENAL, LIPID #### [facility] [address] [place] [address] [address] Keeley Hoskins VLDL CALC 52.2 mg/dL Normal [facility] Comment on above: Performed By: #### R ENAL, LIPID #### [facility] [address] [place] [address] [address] Keeley Hoskins MICROALB CREAT RATIO RANDOMo n 10-06-2022 mALB 4.2 mg/L Normal <=30.0 [facility] Comment on above: Performed By: #### M CRR #### [facility] [address] [place] [address] [address] Keeley Hoskins URINE CREAT <13.00 Critically low 20.00-300.00 [facility] Comment on above: Performed By: #### M CRR #### [facility] [address] [place] [address] [address] Keeley Hoskins RENAL FUNCTION PANELon 10-06 Albumin [Mass/Vol] 4.0 g/dL Normal 3.4-5.0 [facility] Comment on above: Performed By: #### R ENAL, LIPID #### [facility] [address] [place] [address] Dr. Keeley Hoskins Calcium [Mass/Vol] 9.3 mg/dL Normal 8.5-10.1 [facility] Comment on above: Performed By: #### R ENAL, LIPID #### [facility] [address] [place] [address] Dr. Keeley Hoskins Chloride [Moles/Vol] 101 mmol/L Normal 98-107 [facility] Comment on above: Performed By: #### R ENAL, LIPID #### [facility] [address] [place] [address] Dr. Keeley Hoskins CO2 [Moles/Vol] 28.9 mmol/L Normal 21.0-32.0 [facility] Comment on above: Performed By: #### R ENAL, LIPID #### [facility] [address] [place] [address] Dr. Keeley Hoskins Creatinine [Mass/Vol] 0.81 mg/dL Normal 0.55-1.02 [facility] Comment on above: Performed By: #### R ENAL, LIPID #### [facility] [address] [place] [address] Dr. Keeley Hoskins EGFR-AF IRAQI >60 Normal >=60 [facility] Comment on above: Performed By: #### R ENAL, LIPID #### [facility] [address] [place] [address] Dr. Keeley Hoskins EGFR-NON AF IRAQI >60 Normal >=60 [facility] Comment on above: Performed By: #### R ENAL, LIPID #### [facility] [address] [place] [address] Dr. Keeley Hoskins Glucose [Mass/Vol] 123 mg/dL Critically high 74-106 [facility] Comment on above: Performed By: #### R ENAL, LIPID #### [facility] [address] [address] [address] Keeley Hoskins Phosphate [Mass/Vol] 3.9 mg/dL Normal 2.6-4.7 [facility] Comment on above: Performed By: #### R ENAL, LIPID #### [facility] [address] [place] [address] Dr. Keeley Hoskins Potassium [Moles/Vol] 4.4 mmol/L Normal 3.5-5.1 [facility] Comment on above: Performed By: #### R ENLISSY, LIPID #### [facility] [address] [place] [address] Dr. Keeley Hoskins Sodium [Moles/Vol] 140 mmol/L Normal 136-145 [facility] Comment on above: Performed By: #### R ENLISSY, LIPID #### [facility] [address] [place] [address] Dr. Keeley Hoskins Urea nitrogen [Mass/Vol] 12.0 mg/dL Normal 7.0-18.0 [facility] Comment on above: Performed By: #### R SEGUN, LIPID #### [facility] [address] [place] [address] Dr. Keeley Hoskins VITAMIN D 25 OHon 10-06-2022 VIT D 25-OH 37.8 ng/mL Normal [facility] Comment on above: Performed By: #### R ENLISSY, LIPID #### [facility] [address] [place] [address] Dr. Keeley Hoskins VIT D RANGES SEE BELOW Normal [facility] Comment on above: Result Comment: <20 ng/mL Vit D deficient 20 - <30 ng/mL Vit D insufficient 30 - 100 ng/mL Vit D sufficient >100 ng/mL Potential Toxicity Performed By: #### R ENLISSY, LIPID #### [facility] [address] [place] [address] Dr. Keeley Hoskins NM STRESS/REST MULTIon 04-17 NM STRESS/REST MULTI Patient: SCAR JEFFREYRandy Exam Date: 04/17/2022 : 1980 Gender:F Ordering : DR LORENZO CORTEZ . Admission #: [id number] Family : Order #: [id number] CLICK HERE TO VIEW EXAM RADIOLOGY REPORT [...] on 04/18/2022 at 11:44 Normal [facility] ECHOCARDIO M/2D COMPLETEon 0 03-30-2022 ECHOCARDIO M/2D COMPLETE Patient: SCAR JEFFREY Exam Date: 03/30/2022 : 1980 Gender:F Ordering : DR LORENZO CORTEZ . Admission #: [id number] Family : Order #: [id number] CLICK HERE TO VIEW EXAM ECHOCARDIOGRAM REPORT [...] Wooten M.D. on 03/30/2022 at 13:50 Normal [facility] LIPID PROFILEon 03-30-2022 CHOL-HDL RATIO NORM SEE BELOW Normal [facility] Comment on above: Result Comment: 3.3 - 4.4 LOW RISK 4.4 - 7.1 AVERAGE RISK 7.1 - 11.0 MODERATE RISK >11.0 HIGH RISK Performed By: #### R ENLISSY, LIPID #### [facility] [address] [address] [address] Keeley Hoskins Cholesterol [Mass/Vol] 140 mg/dL Normal <=200 [facility] Comment on above: Performed By: #### R ENLISSY, LIPID #### [facility] [address] [address] [address] Keeley Hoskins Cholesterol in HDL [Mass/Vol] 30 mg/dL Critically low 40-60 [facility] Comment on above: Performed By: #### R ENLISSY, LIPID #### [facility] [address] [address] [address] Keeley Hoskins Cholesterol in LDL [Mass/Vol] 69.2 mg/dL Normal [facility] Comment on above: Performed By: #### R ENAL, LIPID #### [facility] [address] [address] [address] Keeley Hoskins Cholesterol.total /Cholesterol in HDL [Mass ratio] 4.7 {ratio} Normal [facility] Comment on above: Performed By: #### R ENAL, LIPID #### [facility] [address] [address] [address] Keeley Hoskins HDL NORMAL > or = 60 mg/dl - LO W CARDIOVASCULAR RISK <40 mg/dl - HIGH CARDIOVASCULAR RISK Normal [facility] Comment on above: Performed By: #### R ENAL, LIPID #### [facility] [address] [place] [address] Dr. Keeley Hoskins LDL CALC NORMAL SEE BELOW Normal [facility] Comment on above: Result Comment: <100 mg/dl OPTIMAL 100 - 129 mg/dl NEAR OR ABOVE OPTIMAL 130 - 159 mg/dl BORDERLINE HIGH 160 - 189 mg/dl HIGH >190 mg/dl VERY HIGH Performed By: #### R ENAL, LIPID #### [facility] [address] [place] [address] Dr. Keeley Hoskins Triglyceride [Mass/Vol] 204 mg/dL Critically high <=150 [facility] Comment on above: Performed By: #### R ENAL, LIPID #### [facility] [address] [address] [address] Keeley Hoskins VLDL CALC 40.8 mg/dL Normal [facility] Comment on above: Performed By: #### R ENAL, LIPID #### [facility] [address] [place] [address] Dr. Keeley Hoskins MICROALB CREAT RATIO RANDOMo n 03-30-2022 mALB 8.3 mg/L Normal <=30.0 [facility] Comment on above: Performed By: #### M CRR #### [facility] [address] [place] [address] Dr. Keeley Hoskins MALB CR RATIO 466.0 mg/g Critically high 0.0-29.9 [facility] Comment on above: Performed By: #### M CRR #### [facility] [address] [address] [address] Keeley Hoskins MALB CR RATIO RANGE SEE BELOW Normal [facility] Comment on above: Result Comment: NO M ICROALBUMINURIA 0-29 MG/G CLINICAL MICROALBUMINURIA 30-300 MG/G MACROALBUMINURIA >300 MG/G Performed By: #### M CRR #### [facility] [address] [address] [address] Keeley Hoskins URINE CREAT 17.81 mg/dL Critically low 20.00-300.00 [facility] Comment on above: Performed By: #### M CRR #### [facility] [address] [place] [address] Dr. Keeley Hoskins RENAL FUNCTION PANELon 03-30 Albumin [Mass/Vol] 4.2 g/dL Normal 3.4-5.0 [facility] Comment on above: Performed By: #### R ENAL, LIPID #### [facility] [address] [address] [address] Keeley Hoskins Calcium [Mass/Vol] 9.2 mg/dL Normal 8.5-10.1 [facility] Comment on above: Performed By: #### R ENAL, LIPID #### [facility] [address] [address] [address] Keeley Hoskins Chloride [Moles/Vol] 98 mmol/L Normal 98-107 [facility] Comment on above: Performed By: #### R ENAL, LIPID #### [facility] [address] [address] [address] Keeley Hoskins CO2 [Moles/Vol] 28.6 mmol/L Normal 21.0-32.0 [facility] Comment on above: Performed By: #### R ENAL, LIPID #### [facility] [address] [address] [address] Keeley Hoskins Creatinine [Mass/Vol] 1.17 mg/dL Critically high 0.55-1.02 [facility] Comment on above: Performed By: #### R ENAL, LIPID #### [facility] [address] [address] [address] Keeley Hoskins EGFR-AF IRAQI >60 Normal >=60 [facility] Comment on above: Performed By: #### R ENAL, LIPID #### [facility] [address] [address] [address] Keeley Hoskins EGFR-NON AF IRAQI 50 mL/min/1.73m2 Critically low >=60 [facility] Comment on above: Performed By: #### R ENAL, LIPID #### [facility] [address] [address] [address] Keeley Hoskins Glucose [Mass/Vol] 212 mg/dL Critically high 74-106 [facility] Comment on above: Performed By: #### R ENAL, LIPID #### [facility] [address] [place] [address] Dr. Keeley Hoskins Phosphate [Mass/Vol] 4.0 mg/dL Normal 2.6-4.7 [facility] Comment on above: Performed By: #### R ENAL, LIPID #### [facility] [address] [place] [address] Dr. Keeley Hoskins Potassium [Moles/Vol] 4.1 mmol/L Normal 3.5-5.1 [facility] Comment on above: Performed By: #### R ENAL, LIPID #### [facility] [address] [place] [address] Dr. Keeley Hoskins Sodium [Moles/Vol] 136 mmol/L Normal 136-145 [facility] Comment on above: Performed By: #### R ENAL, LIPID #### [facility] [address] [place] [address] Dr. Keeley Hoskins Urea nitrogen [Mass/Vol] 16.0 mg/dL Normal 7.0-18.0 [facility] Comment on above: Performed By: #### R ENAL, LIPID #### [facility] [address] [place] [address] Dr. Keeley Hoskins VITAMIN D 25 OHon 03-30-2022 VIT D 25-OH 33.8 ng/mL Normal [facility] Comment on above: Performed By: #### V ITAD #### [facility] [address] [place] [address] Dr. Keeley Hoskins VIT D RANGES SEE BELOW Normal [facility] Comment on above: Result Comment: <20 ng/mL Vit D deficient 20 - <30 ng/mL Vit D insufficient 30 - 100 ng/mL Vit D sufficient >100 ng/mL Potential Toxicity Performed By: #### V ITAD #### [facility] [address] [place] [address] Dr. Keeley Hoskins BNPon 03-16-2022 Natriuretic peptide B (Bld) [Mass/Vol] 20.0 pg/mL Normal <=450.0 [facility] Comment on above: Performed By: #### T 7, TSH, CMP, BNP #### [facility] [address] [place] [address] Dr. Keeley Hoskins CBC AUTO DIFFon 03-16-2022 BASO # 0.1 103/ul Normal 0.0-0.1 [facility] Comment on above: Performed By: #### R ENAL, LIPID #### [facility] [address] [place] [address] Dr. Keeley Hoskins Basophils/100 WBC (Bld) 1.0 % Normal 0.2-2.0 [facility] Comment on above: Performed By: #### R ENAL, LIPID #### [facility] [address] [place] [address] Dr. Keeley Hoskins EO # 0.1 103/ul Normal 0.0-0.7 [facility] Comment on above: Performed By: #### R ENAL, LIPID #### [facility] [address] [place] [address] Dr. Keeley Hoskins Eosinophils/100 WBC (Bld) 1.8 % Normal 0.9-7.0 [facility] Comment on above: Performed By: #### R ENAL, LIPID #### [facility] [address] [place] [address] Dr. Keeley Hoskins Erythrocyte distribution width (RBC) [Ratio] 12.3 % Normal 11.0-15.0 [facility] Comment on above: Performed By: #### R ENLISSY, LIPID #### [facility] [address] [place] [address] Dr. Keeley Hoskins Hematocrit (Bld) [Volume fraction] 37.3 % Normal 36.0-48.0 [facility] Comment on above: Performed By: #### R ENLISSY, LIPID #### [facility] [address] [place] [address] Dr. Keeley Hoskins Hemoglobin (Bld) [Mass/Vol] 12.7 g/dL Normal 12.0-16.0 [facility] Comment on above: Performed By: #### R ENLISSY, LIPID #### [facility] [address] [place] [address] Dr. Keeley Hoskins IG # 0.04 10e3/ul Critically high 0.00-0.03 [facility] Comment on above: Performed By: #### R ENLISSY, LIPID #### [facility] [address] [place] [address] Dr. Keeley Hoskins IG % 0.6 % Critically high 0.0-0.5 [facility] Comment on above: Performed By: #### R ENLISSY, LIPID #### [facility] [address] [place] [address] Dr. Keeley Hoskins LYMPH # 1.8 103/ul Normal 1.2-3.8 [facility] Comment on above: Performed By: #### R ENLISSY, LIPID #### [facility] [address] [place] [address] Dr. Keeley Hoskins Lymphocytes/100 WBC (Bld) 26.4 % Normal 20.5-60.0 [facility] Comment on above: Performed By: #### R ENLISSY, LIPID #### [facility] [address] [place] [address] Dr. Keeley Hoskins MANUAL DIFF REQ NO Normal [facility] Comment on above: Performed By: #### R ENLISSY, LIPID #### [facility] [address] [place] [address] Dr. Keeley Hoskins MCH (RBC) [Entitic mass] 28.0 pg Normal 26.7-34.0 [facility] Comment on above: Performed By: #### R ENAL, LIPID #### [facility] [address] [place] [address] Dr. Keeley Hoskins MCHC (RBC) [Mass/Vol] 34.0 g/dL Normal 29.9-35.2 [facility] Comment on above: Performed By: #### R ENAL, LIPID #### [facility] [address] [place] [address] Dr. Keeley Hoskins MCV (RBC) [Entitic vol] 82.2 fL Normal 81.0-99.0 [facility] Comment on above: Performed By: #### R ENAL, LIPID #### [facility] [address] [place] [address] Dr. Keeley Hoskins MONO # 0.5 103/ul Normal 0.3-0.8 [facility] Comment on above: Performed By: #### R ENAL, LIPID #### [facility] [address] [place] [address] Dr. Keeley Hoskins Monocytes/100 WBC (Bld) 6.6 % Normal 1.7-12.0 [facility] Comment on above: Performed By: #### R ENAL, LIPID #### [facility] [address] [place] [address] Dr. Keeley Hoskins NEUT # 4.4 103/ul Normal 1.4-6.5 [facility] Comment on above: Performed By: #### R ENAL, LIPID #### [facility] [address] [place] [address] Dr. Keeley Hoskins Neutrophils/100 WBC (Bld) 63.6 % Normal 43.0-75.0 [facility] Comment on above: Performed By: #### R ENAL, LIPID #### [facility] [address] [place] [address] Dr. Keeley Hoskins Platelet mean volume (Bld) [Entitic vol] 10.4 fL Normal 9.5-13.5 [facility] Comment on above: Performed By: #### R ENAL, LIPID #### [facility] [address] [address] [address] Keeley Hoskins PLT 283 103/ul Normal 150-450 [facility] Comment on above: Performed By: #### R ENAL, LIPID #### [facility] [address] [address] [address] Keeley Hoskins RBC 4.54 106/ul Normal 4.20-5.40 [facility] Comment on above: Performed By: #### R ENAL, LIPID #### [facility] [address] [address] [address] Keeley Hoskins WBC 6.9 103/ul Normal 4.0-11.0 [facility] Comment on above: Performed By: #### R ENAL, LIPID #### [facility] [address] [place] [address] Dr. Keeley Hoskins FREE THYROXINE INDEX T7on FTI 2.91 Normal 1.30-4.50 [facility] Comment on above: Performed By: #### R ENAL, LIPID #### [facility] [address] [address] [address] Keeley Hoskins T3U 30.0 % Normal 30.0-39.0 [facility] Comment on above: Performed By: #### R ENAL, LIPID #### [facility] [address] [address] [address] Keeley Hoskins T4 [Mass/Vol] 9.70 ug/dL Normal 4.80-13.[address] [facility] Comment on above: Performed By: #### R ENAL, LIPID #### [facility] [address] [address] [address] Keeley Hoskins IRONon 03-16-2022 Iron [Mass/Vol] 72.0 ug/dL Normal 50.0-170.0 [facility] Comment on above: Performed By: #### I MARY #### [facility] [address] [address] [address] Keeley Hoskins PROF 14(COMP METB)on 022 Albumin [Mass/Vol] 3.9 g/dL Normal 3.4-5.0 [facility] Comment on above: Performed By: #### T 7, TSH, CMP, BNP #### [facility] [address] [place] [address] Dr. Keeley Hoskins Albumin/Globulin [Mass ratio] 1.1 {ratio} Normal [facility] Comment on above: Performed By: #### T 7, TSH, CMP, BNP #### [facility] [address] [place] [address] Dr. Keeley Hoskins ALP [Catalytic activity/Vol] 143 U/L Critically high 46-116 [facility] Comment on above: Performed By: #### T 7, TSH, CMP, BNP #### [facility] [address] [place] [address] Dr. Keeley Hoskins ALT [Catalytic activity/Vol] 43 U/L Normal 14-59 [facility] Comment on above: Performed By: #### T 7, TSH, CMP, BNP #### [facility] [address] [place] [address] Dr. Keeley Hoskins Anion gap [Moles/Vol] 15.6 mmol/L Normal [facility] Comment on above: Performed By: #### T 7, TSH, CMP, BNP #### [facility] [address] [place] [address] Dr. Keeley Hoskins AST [Catalytic activity/Vol] 23 U/L Normal 15-37 [facility] Comment on above: Performed By: #### T 7, TSH, CMP, BNP #### [facility] [address] [place] [address] Dr. Keeley Hoskins Bilirubin [Mass/Vol] 0.6 mg/dL Normal 0.2-1.0 [facility] Comment on above: Performed By: #### T 7, TSH, CMP, BNP #### [facility] [address] [place] [address] Dr. Keeley Hoskins Calcium [Mass/Vol] 9.2 mg/dL Normal 8.5-10.1 [facility] Comment on above: Performed By: #### T 7, TSH, CMP, BNP #### [facility] [address] [address] [address] Keeley Hoskins Chloride [Moles/Vol] 96 mmol/L Critically low 98-107 [facility] Comment on above: Performed By: #### T 7, TSH, CMP, BNP #### [facility] [address] [address] [address] Keeley Hoskins CO2 [Moles/Vol] 25.1 mmol/L Normal 21.0-32.0 [facility] Comment on above: Performed By: #### T 7, TSH, CMP, BNP #### [facility] [address] [address] [address] Keeley Hoskins Creatinine [Mass/Vol] 1.14 mg/dL Critically high 0.55-1.02 [facility] Comment on above: Performed By: #### T 7, TSH, CMP, BNP #### [facility] [address] [address] [address] Keeley Hoskins EGFR-AF IRAQI >60 Normal >=60 [facility] Comment on above: Performed By: #### T 7, TSH, CMP, BNP #### [facility] [address] [address] [address] Keeley Hoskins EGFR-NON AF IRAQI 52 mL/min/1.73m2 Critically low >=60 [facility] Comment on above: Performed By: #### T 7, TSH, CMP, BNP #### [facility] [address] [address] [address] Keeley Hoskins Globulin (S) [Mass/Vol] 3.4 g/dL Normal [facility] Comment on above: Performed By: #### T 7, TSH, CMP, BNP #### [facility] [address] [address] [address] Keeley Hoskins Glucose [Mass/Vol] 438 mg/dL Critically high 74-106 [facility] Comment on above: Performed By: #### T 7, TSH, CMP, BNP #### [facility] [address] [address] [address] Keeley Hoskins Potassium [Moles/Vol] 4.7 mmol/L Normal 3.5-5.1 [facility] Comment on above: Performed By: #### T 7, TSH, CMP, BNP #### [facility] [address] [place] [address] Dr. Keeley Hoskins Protein [Mass/Vol] 7.3 g/dL Normal 6.4-8.2 [facility] Comment on above: Performed By: #### T 7, TSH, CMP, BNP #### [facility] [address] [place] [address] Dr. Keeley Hoskins Sodium [Moles/Vol] 132 mmol/L Critically low 136-145 [facility] Comment on above: Performed By: #### T 7, TSH, CMP, BNP #### [facility] [address] [place] [address] Dr. Keeley Hoskins Urea nitrogen [Mass/Vol] 17.0 mg/dL Normal 7.0-18.0 [facility] Comment on above: Performed By: #### T 7, TSH, CMP, BNP #### [facility] [address] [place] [address] Dr. Keeley Hoskins Urea nitrogen/Creatini ne [Mass ratio] 14.9 mg/mg Normal [facility] Comment on above: Performed By: #### T 7, TSH, CMP, BNP #### [facility] [address] [place] [address] Dr. Keeley Hoskins TSHon 03-16-2022 TSH 2.240 uIU/mL Normal 0.358-3.740 [facility] Comment on above: Performed By: #### R ENAL, LIPID #### [facility] [address] [place] [address] Dr. Keeley Hoskins KNEE RIGHT 3 [facility] 1 KNEE RIGHT 3 [facility] Department of Radiology [address] [place] [id number] ===== Patient Name: SCAR JEFFREY : 1980 Sex: F Age: Race: White Pt. Location: 82 Patient Status: O Ordered Date: 06/13/2021 9:05:00 AM Completed Date: 06/13/2021 09:13 AM Requesting Provider: TONYA CENTENO Attending Provider: TONYA CENTENO Report Copy To: Signs & Symptoms: M25.561 Pain in right knee I10 History: Comments: standing , Weight Bearing?: Y Exam: KNEE RIGHT [address] [facility] ===== KNEE RIGHT [address] [facility] 06/13/2021 9:13 AM CLINICAL INDICATIONS: M25.561 [...] pathology Electronically signed: Toyin Juan. Transcribed by: [email or web address], User Resident: Electronically Signed by: TOYIN JUAN @ 06/13/2021 11:03 AM Normal [facility] Comment on above: Order Comment: stand ing , Weight Bearing?: Y KNEE RIGHT 3 [facility] KNEE RIGHT 3 [facility] Department of Radiology [address] [place] [phone] ===== Patient Name: SCAR JEFFREY : 1980 Sex: F Age: Race: White Pt. Location: 84 Patient Status: O Ordered Date: 11/15/2020 10:15:00 AM Completed Date: 11/15/2020 10:33 AM Requesting Provider: TONYA CENTENO Attending Provider: TONYA CENTENO Report Copy To: Signs & Symptoms: M25.561 Pain in right knee I10 History: [place] Comments: evaluate Exam: KNEE RIGHT 3 VWS [...] reports Electronically signed: Naila Puentes. Transcribed by: [email or web address], User Resident: GREGG LEMONS Electronically Signed by: NAILA PUENTES @ 11/15/2020 11:25 AM I personally read this/these film(s) with this resident Normal [facility] Comment on above: Order Comment: evalu ate TIBIA FIBULA RIGHTon 021 TIBIA FIBULA RIGHT [facility] Department of Radiology [address] [place] [phone] ===== Patient Name: SCAR JEFFREY : 1980 Sex: F Age: Race: White Pt. Location: 84 Patient Status: O Ordered Date: 11/15/2020 9:55:00 AM Completed Date: 11/15/2020 10:33 AM Requesting Provider: TONYA CENTENO Attending Provider: TONYA CENTENO Report Copy To: Signs & Symptoms: S82.142A Displaced bicondylar fracture of right tibia, init I10 History: [place] Comments: evaluate Exam: TIBIA FIBULA RIGHT ===== [...] abnormality. Electronically signed: Naila Puentes. Transcribed by: [email or web address], User Resident: Electronically Signed by: NAILA PUENTES @ 11/15/2020 11:37 AM Normal [facility] Comment on above: Order Comment: evalu ate Vital Signs Date Time Vital Sign Value Performing Clinician Facility 09-23-2024 13:49-0500 Blood Pressure Location Kobe ROBERTSON [facility] General Surgery [place] 09-23-2024 13:49-0500 Diastolic blood pressure 64 mm[Hg] Kobe NILL [facility] 09-23-2024 13:49-0500 Heart rate 72 /min Kobe NILL [facility] 09-23-2024 13:49-0500 Respiratory rate 16 /min Kobe NILL [facility] 09-23-2024 13:49-0500 Systolic blood pressure 146 mm[Hg] Kobe NILL [facility] 06-23-2024 10:10-0400 Body height 166.4 cm Zay Gonzalez MD Work Phone: [facility] 06-23-2024 10:10-0400 Body mass index (BMI) [Ratio] 59.16 kg/m2 Zay Gonzalez MD Work Phone: [facility] 06-23-2024 10:10-0400 Body weight 163.75 kg Zay Gonzalez MD Work Phone: [facility] 06-23-2024 10:10-0400 Diastolic blood pressure 60 mm[Hg] Zay Gonzalez MD Work Phone: [facility] 06-23-2024 10:10-0400 Heart rate 98 /min Zay Gonzalez MD Work Phone: [facility] 06-23-2024 10:10-0400 Respiratory rate 18 /min Zay Gonzalez MD Work Phone: [facility] 06-23-2024 10:10-0400 Systolic blood pressure 160 mm[Hg] Zay Gonzalez MD Work Phone: [facility] 06-03-2024 16:01-0400 Blood Pressure Location Kobe NILL [facility] 06-03-2024 16:01-0400 Diastolic blood pressure 70 mm[Hg] Kobe NILL [facility] 06-03-2024 16:01-0400 Heart rate 72 /min Kobe ROBERTSON [facility] 06-03-2024 16:01-0400 Respiratory rate 16 /min Kobe ROBERTSON [facility] 06-03-2024 16:01-0400 Systolic blood pressure 132 mm[Hg] Kobe ROBERTSON [facility] Encounters Encounter Date Encounter Type Care Provider Facility Start: 09-23-2024 End: 09-23-2024 ambulatory Kobe ROBERTSON Facility:[facility] Start: 09-23-2024 End: 09-23-2024 Patient encounter procedure Kobe ROBERTSON [facility] Start: 08-19-2024 ambulatory Castillo Rollins acility:[facility] Start: 06-24-2024 End: 06-24-2024 ambulatory Kobe ROBERTSON Facility:[facility] Start: 06-24-2024 End: 06-24-2024 Patient encounter procedure Kobe ROBERTSON [facility] Start: 06-23-2024 End: 06-23-2024 Bamboo flowsheet Zay Gonzalez MD Work Phone: [facility] Start: 06-23-2024 End: 06-23-2024 Bamboo flowsheet Zay Gonzalez MD Work Phone: [facility] Start: 06-23-2024 End: 06-23-2024 Office outpatient visit 40 minutes Zay Gonzalez MD Work Phone: [facility] Comment on above: Type 1 diabetes bar itus with hyperglycemia (HCC) (CMS/HCC) (Primary Dx); Vitamin D deficiency; Encounter for dietary consultation; Insulin long-term use ([facility]); Microalbuminuria; Insulin pump in place; Encounter for fitting or adjustment of insulin pump; Primary hypertension (CMS/[facility]); 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 ([facility]) Start: 06-23-2024 End: 06-23-2024 ambulatory ZAY GONZALEZ Not Available Start: 06-18-2024 End: 06-18-2024 Lab Drop off Kobe ROBERTSON [facility] Start: 06-18-2024 End: 06-18-2024 ambulatory Kobe ROBERTSON Facility:[facility] Start: 06-18-2024 End: 06-18-2024 Patient encounter procedure Kobe ROBERTSON [facility] Start: 06-03-2024 End: 06-03-2024 ambulatory Lorenzo Cortez Facility:[facility] Start: 06-03-2024 End: 06-03-2024 Patient encounter procedure Kobe ROBERTSON [facility] Start: 01-23-2024 End: 01-23-2024 ambulatory THALIA H TIMMIS Not Available Start: 12-24-2023 End: 12-24-2023 ambulatory THALIA H TIMMIS Not Available Start: 01-22-2023 End: 01-23-[address] LORENZO CORTEZ . Facility: Start: 01-03-2023 End: 01-04-[address] LORENZO [...] Start: 10-15-2020 End: 11-01-2020 ambulatory TONYA CENTENO Facility:[facility] Procedures Date Procedure Procedure Detail Performing Clinician Start: 06-23-2024 Gluc bld gluc mntr d ev cleared fda spec home use Zay Gonzalez MD Work Phone: Start: 06-08-2021 Colonoscopy Kobe NI LL Arthroscopic repair of rotator cuff Kobe NILL Bladder excision Kobe NIL L Comment on above: multiple section Kobe NIL L section Kobe NIL L Cholecystectomy Kobe NILL Decompression of med jesusita nerve Kobe NILL Comment on above: right Excision of vocal co rd nodule Kobe NILL Insertion of insulin pump Nohelia be NILL Plan of Treatment Date Care Activity Detail Author Start: 10-27-2024 End: 10-27-2024 Patient encounter procedure 10/27/2024 10:10 AM EST [facility] [address] [place] [address] Zay Gonzalez MD [address] [place] [address] [facility] Start: 06-23-2024 End: 06-23-2024 Patient encounter procedure 06/23/2024 10:40 AM EDT Office Visit [facility] [address] [place] [phone] Zay Gonzalez MD [address] [place] [address] Type 1 diabetes mellitus with hyperglycemia (HCC) ([facility]/HCC) [facility] Comment on above: Type 1 diabetes bar itus with hyperglycemia (HCC) (CMS/HCC) Payers Date Payer Category Payer Self-pay 2019 Medicare (Managed Care) [employer] [id number] 2017 Medicaid [place]ICAID [place] [id number] 1980 Unknown [id number] 2.16.840.1.386878.3.579.2. 647 1980 Unknown [id number] 2.16.840.1.456263.3.579.2. 593 1980 Unknown [id number] 2.16.840.1.088015.3.579.2. 593 1980 Unknown [id number] 2.16.840.1.159445.3.579.2. 593 1978 Unknown [id number] 2.16.840.1.150369.3.579.2. 593 1978 Unknown [id number] 2.16.840.1.593941.3.579.2. 593 1978 Unknown [id number] 2.16.840.1.994430.3.579.2. 593 1978 Unknown [id number] 2.16.840.1.658994.3.579.2. 593 1978 Unknown [id number] 2.16.840.1.103401.3.579.2. 593 1978 Unknown [id number] 2.16.840.1.106162.3.579.2. 593 1978 Unknown [id number] 2.16.840.1.260729.3.579.2. 1259 1978 Unknown [id number] 2.16.840.1.394956.3.579.2. 1259 1978 Unknown [id number] 2.16.840.1.555228.3.579.2. 1259 1978 Unknown [id number] 2.16.840.1.107671.3.579.2. 727 1978 Unknown [id number] 2.16.840.1.135943.3.579.2. 727 1978 Unknown [id number] 2.16.840.1.479640.3.579.2. 727 1978 Unknown [id number] 2.16.840.1.081138.3.579.2. 727 1978 Unknown [id number] 2.16.840.1.413928.3.579.2. 727 1961 Medicaid [id number] 1961 Private Health Insurance [id number] Unknown [id number] 2.16.840.1.269140.3.579.2. 531 Social History Date Type Detail Facility Start: 06-03-2024 End: 09-23-2024 Tobacco smoking status Ex-smoker (finding) [facility] Start: 01-23-2024 Sex Assigned At Female F [facility] Start: 09-10-2005 End: 09-10-2016 History of tobacco use Current smoker [facility] Start: 09-10-2005 End: 09-10-2016 History of tobacco use Cigarette Smoker [facility] Start: 12-18-2023 Tobacco use and exposure Smokeless tobacco non-user [facility] Start: 06-12-2024 Alcoholic beverage intake Ex-drinker (finding) [facility] Start: 01-23-2024 History of Social function [facility] Start: 1980 Sex assigned at Not on file N [facility] Medical Equipment Procedure Code Equipment Code Equipment Origin al Text Equipment Identifier Dates [id number] Start: 06-10-2024 End: 06-10-2025 Functional Status Date Assessment Result Facility 09-23-2024 Functional Status N/A [facility] 06-03-2024 Functional Status N/A [facility] Clinical Note 09-23-2024 Note Date & Type Note Facility 09-23-2024 Note [facility] Surgery Offi ce/Clinic Note Chief Complaint consultation for positive occult stool HPI Staff 44 year old female presents on consultation from Dr. Cortez for positive occult stool. Reports one day episode of abdominal pain and dark stools. Denies noting rectal bleeding or rectal pain. Denies nausea or vomiting. Last colonoscopy completed 05/2021 with tubular adenoma. History of Present Illness 44 yo female with h/o DMI, htn, neuropathy, hypothyroidism, GERD, migraines, JOHNATHAN, bipolar d/o referred for positive fecal occult blood test; patient had 1 day of crampy abd pain and dark loose stools, none since, no gross blood in stools; no N/V; last colonoscopy 06/2021 with removal of small tubular adenoma; in recall for 06/2026; on baby asa daily, no NSAID use; smokes daily; no fmhx of GI malignancy or IBD. Review of Systems PHQ Score Initial Depression [...] & Measurements HR: 72(Peripheral) RR: 16 BP: 146/64 HT: 66 in HT: 167.6 cm WT: 112.3 kg WT: 247.579 lb BMI: 39.98 HEENT: normal conjunctiva, sclera clear, no scleral icterus, EOM intact, PERRLA, oral mucosa moist without lesions. Neck: trachea midline, no mass, symmetric, no thyromegaly or nodules, no adenopathy Respiratory: lungs CTA, respirations non labored. Cardiovascular: regular rate and rhythm, no murmur, no pedal edema or varicosities. Gastrointestinal: obese, soft, non distended, no tenderness, no masses, no palpable hernias, diastasis recti no, no hepatosplenomegaly; normal bs Musculoskeletal: normal gait, digits and nails without infection, nodes, cyanosis, clubbing. Skin: no rashes, yes lesions, multiple skin tags neck/face no ulcers, no subcutaneous nodules, induration. Psychiatric/Neuro: oriented to time, place, person, judgement normal, affect appropriate for age, insight intact, no focal deficits. Tests: labs reviewed, review of old records completed , Assessment/Plan 1. Positive fecal occult blood test (R19.5: Other fecal abnormalities) no bowel changes or abd complaints; in recall for 06/2026; will hold on colonoscopy until then; patient to call sooner with problems/questions. 2. Personal history of adenomatous and serrated colon polyps (Z86.0101: Personal history of adenomatous and serrated colon polyps) see # 1 Follow-up No qualifying data available Problem List/Past Medical History Ongoing Anxiety Bipolar I disorder BMI 39.0-39.9,adult Cervical disc disease Chronic laryngitis Cigarette smoker Class 3 obesity Diabetes type I Diastasis recti Epidermal cyst [...] due to unstable diabetes mellitus type 1 Personal history of adenomatous and serrated colon polyps Positive fecal occult blood test Positive occult stool blood test Seizure disorder Skin tags, multiple acquired Sleep [...] (separate procedure), Total abdominal hysterectomy (corpus and cervix) (more content not included)... [facility] Comment on above: Result Comment: Elec tronically Signed By: AILYN CHENG, Kobe Davidson\alon\Date and Time Signed: 09/23/24 15:16 EST History of Present illness Narrative 06-23-2024 Zay [...] readings . wants to check her for [place]'s disease since her mother had it. 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 (CMS/HCC) Migraine (CMS/HCC) [...] Type 1 diabetes mellitus with hyperglycemia (HCC) ([facility]) - POCT glucose manually resulted - POCT [...] Encounter for dietary consultation Insulin long-term use ([facility]) Microalbuminuria Insulin pump in place Encounter for fitting or adjustment of insulin pump Primary hypertension ([facility]/HCC) 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 documented in this encounter [facility] Clinical Note 06-03-2024 Note Date & [...] chloride 10 mEq (more content not included)... [facility] Comment on above: Result Comment: Elec tronically [...] 85% of maximum predicted heart rate. [facility] Evaluation + Plan note Note Date & Type Note Facility Evaluation + Plan note Future Appointments Appointment Date:06/18/2024 03:00:00 PM Scheduled Provider:Kobe ROBERTSON MD Location:[facility] Appointment Type: [place] [facility] Evaluation + Plan note Note Date & Type Note Facility Evaluation + Plan note Future Appointments Appointment Date:06/24/2024 02:00:00 PM Scheduled Provider:Kobe ROBERTSON MD Location:[facility] Appointment Type: Established [facility] Evaluation note Note Date & Type Note Facility Evaluation note Diagnosis Type 1 diabetes mellitus with hyperglycemia (HCC) ([facility]/HCC)- Primary Vitamin D deficiency Encounter for dietary consultation Insulin long-term use ([facility]/HCC) Encounter for long-term (current) use of insulin Microalbuminuria Proteinuria Insulin pump in place Insulin pump status Encounter for fitting or adjustment of insulin pump Fitting and adjustment of insulin pump Primary hypertension (CMS/HCC) Unspecified essential hypertension 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 ([facility]/HCC) documented in this encounter [facility] Hospital course Narrative Note Date & Type Note Facility Hospital course Narrative No data available for this section [facility] Discharge instructions Note Date & Type Note Facility Hospital Discharge instructions No data available for this section [facility] Progress note Note Date & Type Note Facility Progress note No data available for this section [facility] Summary Purpose Family History No Family History Records FoundNo Family History Records Found No data available for this section No data available for this section No data available for this section No Family History Records Found No data available [...] and content) DATE CREATED AUTHOR 10/02/2021 [facility] DATE CREATED AUTHOR AUTHOR'S ORGANIZ ATION 01/23/2023 [facility] DATE CREATED AUTHOR AUTHOR'S ORGANIZ ATION 06/24/2024 [facility] EPIC DATE CREATED AUTHOR AUTHOR'S ORGANIZ ATION 06/27/2024 Grandy Alessandro [facility] DATE CREATED AUTHOR AUTHOR'S ORGANIZ ATION 08/22/2024 [facility] DATE CREATED AUTHOR AUTHOR'S ORGANIZ ATION 09/03/2024 [facility] DATE CREATED AUTHOR AUTHOR'S ORGANIZ ATION 09/26/2024 [facility] Patient Care team informatio n (unrecognized section and content) 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 [facility] [employer] provides no warranty or guarantee of the accuracy or completeness of information in this document.
[2024-09-27 08:43] LABS: Estimated GFR (African America >60 (>=60 mL/min/1.73m^2); Estimated GFR (Non-African Ame 52 (>=60 mL/min/1.73m^2)
== END 2024-09-27 08:22 | disposition home or self-care (01) ==
LOC: LAB 08:21
PROVIDERS: PCP Family Medicine; Visit Provider Family Medicine
DX: R59.9 Enlarged lymph nodes, unspecified (principal)
CPT/HCPCS: 36415; 70491; 82565; Q9967

== ENCOUNTER 2024-10-06 09:27 | Outpatient (OUT) | payer MEDICARE, MEDICAID, SELFPAY ==
--- OUTSIDE RECORDS SUMMARY | 2024-10-06 09:48 | XMS_ITS | CCD ---
Author Organization [facility] Care Team Providers Care Supply Coordinator Name Role Phone NOÉHEIMCARMENIL Attending Unavailable EBRAHEIM, [...] Unavailable HOY ., DR VENTURA Consulting Unavailable ARNOLD, DR EDNA Carlson Consulting Unavailable HOY ., [...] Consulting Unavailable Lorenzo Cortez Primary Care Physician [phone] THALIA METCALF Attending Unavailable LORENZO CORTEZ Referring Unavailable THALIA METCALF Attending Unavailable CARLOS, AHMABrice F Attending Unavailable CARLOS, TREVONMABrice F Referring Unavailable Lorenzo Cortez MD Primary Care Provider [phone] Castillo Choudhary Attending Unavailab le Castillo [...] HYDROcodone; Translations: [Vicodin] Drug Allergy 3 [facility] Repository (3 sources) Acetaminophen / HYDROcodone; Translations: [Lortab] Drug Allergy 6 [facility] Repository (1 source) Adhesive agent Drug allergy (disorder) 3 [facility] Repository (3 sources) Amino Acids; Translations: [lisinopril] Drug Allergy 6 [facility] Repository (3 sources) lamoTRIgine; Translations: [LaMICtal] Drug Allergy 3 [facility] Repository (3 sources) Morphine; Translations: [morphine] Drug Allergy 3 [facility] Repository (3 sources) OXcarbazepine; Translations: [Trileptal] Drug Allergy 3 [facility] Repository (1 source) Penicillins Drug allergy (disorder) 3 [facility] Repository (3 sources) Valproate; Translations: [Depakote] Drug Allergy 3 [facility] Repository (10 sources) Acetaminophen / HYDROcodone; Translations: [acetaminophen-hy drocodone] Drug Allergy Edema of pharynx (disorder) [facility] (5 sources) lamoTRIgine; Translations: [lamotrigine] Drug Allergy Cutaneous eruption (morphologic abnormality) [facility] (5 sources) Lisinopril; Translations: [lisinopril] Drug Allergy Edematous skin (disorder) [facility] (8 sources) Morphine; Translations: [morphine] Drug Allergy 4 Vomiting (disorder), GI intolerance [facility] (5 sources) OXcarbazepine; Translations: [oxcarbazepine] Drug Allergy Edema of pharynx (disorder) [facility] (7 sources) Penicillin; Translations: [penicillin] Drug Allergy Cutaneous eruption (morphologic abnormality) [facility] (5 sources) Valproate; Translations: [divalproex sodium] Drug Allergy Edema of pharynx (disorder) [facility] (3 sources) Codeine Drug Allergy 4 [facility] (3 sources) HYDROcodone Drug Allergy 4 [facility] Work Phone: (3 sources) Lamotrigine Allergy to substance 4 Rash [facility] (3 sources) Oxcarbazepine Allergy to substance 4 [facility] (3 sources) Penicillin G Drug Allergy 4 Hives [facility] (3 sources) Penicillins Propensity to adverse reactions 4 [facility] (3 sources) Valproate Drug Allergy 4 [facility] Medications Current Medications Medication Drug Class(es) Dates [...] by mouth every week Vitamin D, Ergocalciferol, 40073 units capsule Take 1 tablet by mouth [...] sources) Long-term current use of insulin; 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 Normal [facility] Provider Letteron 09-01-2024 Provider Letter Provider Letter September 01, 2024 SCAR JEFFREY [address] [address] : 1980 Dear Randy Dana, We have been trying to reach you with no success regarding a referral from Dr Cortez. It is important that you return our call upon receiving this letter. Also, at the time of your call, please provide us with your current information. Thank you for your prompt attention to this matter. Sincerely, [facility] General Surgery [phone] Normal [facility] Surgical Pathology Reporton 06-25-2024 Surgical Pathology Report [address] [place] [address]- Surgical Pathology Report Collected Date/Time: 06/18/2024 15:32 [...] specified. Multiple levels are microscopically examined. Normal [facility] Comment on above: Performed By: #### [id number] #### [facility] Laboratory [address] [place] [address] Ambulatory Visit Summaryon 1 Ambulatory Visit Summary [...] choosing us for your care. Malia Romero [facility] General Surgery Office/Clini c Noteon 06-24-2024 General [...] Years., 06/03/20 (more content not included)... Normal [facility] Comment on above: Result Comment: Elec tronically Signed By: AILYN CHENG, Kobe Davidson\alon\Date and Time Signed: 06/24/24 14:17 EDT Glucose (Bld) [Mass/Vol]on Glucose Blood, POC 361 mg/dL [facility] [employer] [facility] e HbA1c (Bld) [Mass fraction]o n 06-23-2024 [facility] - Hematology and Cell countson 06-23-2024 HbA1c (Bld) [Mass fraction] 7.9 % [facility] Ambulatory Visit Summaryon 1 Ambulatory Visit Summary [...] PM EDT With: Kobe ROBERTSON MD Where: [facility] [address], [address], [place] [address]- Medications What How Much When Instructions Unchanged [...] Diastasis recti (more content not included)... Normal [facility] General Surgery Office/Clini c Noteon 06-18-2024 General [...] ER Tab (more content not included)... Normal [facility] Comment on above: Result Comment: Elec [...] EDT With: AILYN CHENG, Kobe Davidson Where: [address], [address], [place] [id number]- Medications What How Much When Instructions Unchanged [...] (Rash) Pro (more content not included)... Normal [facility] CREATININEon 01-22-2023 Creatinine [Mass/Vol] 0.98 mg/dL Normal 0.55-1.02 [facility] Comment on above: Performed By: #### C NILSON #### [facility] Laboratory [address] [place] [address] Dr. Keeley Hoskins EGFR-AF CITIZ[place] >60 Normal >=60 [facility] Comment on above: Performed By: #### C NILSON #### [facility] Laboratory [address] [place] [address] Dr. Keeley Hoskins EGFR-NON AF CITIZEN OF [place] >60 Normal >=60 [facility] Comment on above: Performed By: #### C NILSON #### [facility] Laboratory [address] [place] [address] NECK [address] W [...] by: EDNA GOMEZ Date: 2023-01-22 11:08 Normal [facility] MRI CSPINE WO CONon 01-23-20 23 MRI [...] by: EDNA GOMEZ Date: 2023-01-22 11:04 Normal [facility] CT FACIAL BONES WO CONon CT FACIAL [...] by: FLORA DERAS Date: 2023-01-04 07:25 Normal [facility] XR CSPINE MIN 4 VIEWSon 12-10 XR [...] spine for further evaluation. Electronically authenticated by: FLROA DERAS Date: 2023-01-04 07:12 Normal [facility] C-PEPTIDE, SERUMon 3 C-Peptide, Serum <0.1 Critically low 1.1-4.4 [facility] Comment on above: Result Comment: C-Pe ptide reference interval is for fasting patients. Performed By: #### C PEPT #### [facility] Laboratory [address] [place] [address] Dr. Keeley Hoskins BNPon 10-06-2022 Natriuretic peptide B (Bld) [Mass/Vol] 20.0 pg/mL Normal <=450.0 [facility] Comment on above: Performed By: #### R ENAL, LIPID #### [facility] Laboratory [address] [place] [address] Dr. Keeley Hoskins LIPID PROFILEon 10-06-2022 CHOL-HDL RATIO NORM SEE BELOW Normal [facility] Comment on above: Result Comment: 3.3 - 4.4 LOW RISK 4.4 - 7.1 AVERAGE RISK 7.1 - 11.0 MODERATE RISK >11.0 HIGH RISK Performed By: #### R ENAL, LIPID #### [facility] Laboratory [address] [place] [address] Dr. Keeley Hoskins Cholesterol [Mass/Vol] 156 mg/dL Normal <=200 [facility] Comment on above: Performed By: #### R ENAL, LIPID #### [facility] Laboratory [address] [place] [address] Dr. Keeley Hoskins Cholesterol in HDL [Mass/Vol] 32 mg/dL Critically low 40-60 [facility] Comment on above: Performed By: #### R ENAL, LIPID #### [facility] Laboratory [address] [place] [address] Dr. Keeley Hoskins Cholesterol in LDL [Mass/Vol] 71.8 mg/dL Normal [facility] Comment on above: Performed By: #### R ENAL, LIPID #### [facility] Laboratory [address] [address] [address] Keeley Hoskins Cholesterol.total /Cholesterol in HDL [Mass ratio] 4.9 {ratio} Normal [facility] Comment on above: Performed By: #### R ENAL, LIPID #### [facility] Laboratory [address] [address] [address] Keeley Hoskins HDL NORMAL > or = 60 mg/dl - LO W CARDIOVASCULAR RISK <40 mg/dl - HIGH CARDIOVASCULAR RISK Normal [facility] Comment on above: Performed By: #### R ENAL, LIPID #### [facility] Laboratory [address] [address] [address] Keeley Hoskins LDL CALC NORMAL SEE BELOW Normal [facility] Comment on above: Result Comment: <100 mg/dl OPTIMAL 100 - 129 mg/dl NEAR OR ABOVE OPTIMAL 130 - 159 mg/dl BORDERLINE HIGH 160 - 189 mg/dl HIGH >190 mg/dl VERY HIGH Performed By: #### R ENAL, LIPID #### [facility] Laboratory [address] [address] [address] Keeley Hoskins Triglyceride [Mass/Vol] 261 mg/dL Critically high <=150 [facility] Comment on above: Performed By: #### R ENAL, LIPID #### [facility] Laboratory [address] [address] [address] Keeley Hoskins VLDL CALC 52.2 mg/dL Normal [facility] Comment on above: Performed By: #### R ENAL, LIPID #### [facility] Laboratory [address] [place] [address] [address] Keeley Hoskins MICROALB CREAT RATIO RANDOMo n 10-06-2022 mALB 4.2 mg/L Normal <=30.0 [facility] Comment on above: Performed By: #### M CRR #### [facility] Laboratory [address] [address] [address] Keeley Hoskins URINE CREAT <13.00 Critically low 20.00-300.00 [facility] Comment on above: Performed By: #### M CRR #### [facility] Laboratory [address] [address] [address] Keeley Hoskins RENAL FUNCTION PANELon 10-06 Albumin [Mass/Vol] 4.0 g/dL Normal 3.4-5.0 [facility] Comment on above: Performed By: #### R ENAL, LIPID #### [facility] Laboratory [address] [place] [address] Dr. Keeley Hoskins Calcium [Mass/Vol] 9.3 mg/dL Normal 8.5-10.1 [facility] Comment on above: Performed By: #### R ENAL, LIPID #### [facility] Laboratory [address] [place] [address] Dr. Keeley Hoskins Chloride [Moles/Vol] 101 mmol/L Normal 98-107 [facility] Comment on above: Performed By: #### R ENAL, LIPID #### [facility] Laboratory [address] [place] [address] Dr. Keeley Hoskins CO2 [Moles/Vol] 28.9 mmol/L Normal 21.0-32.0 [facility] Comment on above: Performed By: #### R ENAL, LIPID #### [facility] Laboratory [address] [place] [address] Dr. Keeley Hoskins Creatinine [Mass/Vol] 0.81 mg/dL Normal 0.55-1.02 [facility] Comment on above: Performed By: #### R ENAL, LIPID #### [facility] Laboratory [address] [place] [address] Dr. Keeley Hoskins EGFR-AF CITIZ[place] >60 Normal >=60 [facility] Comment on above: Performed By: #### R ENAL, LIPID #### [facility] Laboratory [address] [place] [address] Dr. Keeley Hoskins EGFR-NON AF [place]IZ[place] >60 Normal >=60 [facility] Comment on above: Performed By: #### R ENAL, LIPID #### [facility] Laboratory [address] [place] [address] Dr. Keeley Hoskins Glucose [Mass/Vol] 123 mg/dL Critically high 74-106 [facility] Comment on above: Performed By: #### R ENAL, LIPID #### [facility] Laboratory [address] [address] [address] Keeley Hoskins Phosphate [Mass/Vol] 3.9 mg/dL Normal 2.6-4.7 [facility] Comment on above: Performed By: #### R ENAL, LIPID #### [facility] Laboratory [address] [place] [address] Dr. Keeley Hoskins Potassium [Moles/Vol] 4.4 mmol/L Normal 3.5-5.1 [facility] Comment on above: Performed By: #### R ENLISSY, LIPID #### [facility] Laboratory [address] [place] [address] Dr. Keeley Hoskins Sodium [Moles/Vol] 140 mmol/L Normal 136-145 [facility] Comment on above: Performed By: #### R ENLISSY, LIPID #### [facility] Laboratory [address] [place] [address] Dr. Keeley Hoskins Urea nitrogen [Mass/Vol] 12.0 mg/dL Normal 7.0-18.0 [facility] Comment on above: Performed By: #### R SEGUN, LIPID #### [facility] Laboratory [address] [place] [address] Dr. Keeley Hoskins VITAMIN D 25 OHon 10-06-2022 VIT D 25-OH 37.8 ng/mL Normal [facility] Comment on above: Performed By: #### R ENLISSY, LIPID #### [facility] Laboratory [address] [place] [address] Dr. Keeley Hoskins VIT D RANGES SEE BELOW Normal [facility] Comment on above: Result Comment: <20 ng/mL Vit D deficient 20 - <30 ng/mL Vit D insufficient 30 - 100 ng/mL Vit D sufficient >100 ng/mL Potential Toxicity Performed By: #### R ENLISSY, LIPID #### [facility] Laboratory [address] [place] [address] Dr. Keeley Hoskins NM STRESS/REST MULTIon 04-17 NM STRESS/REST MULTI Patient: SCAR JEFFREYRandy Exam Date: 04/17/2022 : 1980 Gender:F Ordering : DR LORENZO CORTEZ . Admission #: [id number] Family : Order #: [id number] CLICK HERE TO VIEW EXAM RADIOLOGY REPORT [...] Gomez MD on 04/18/2022 at 11:44 Normal [facility] ECHOCARDIO M/2D COMPLETEon 0 03-30-2022 ECHOCARDIO M/2D COMPLETE Patient: SCAR JEFFREY Exam Date: 03/30/2022 : 1980 Gender:F Ordering : DR LORENZO CORTEZ . Admission #: [id number] Family : Order #: [id number] CLICK HERE TO VIEW EXAM ECHOCARDIOGRAM REPORT [...] Wooten M.D. on 03/30/2022 at 13:50 Normal [facility] LIPID PROFILEon 03-30-2022 CHOL-HDL RATIO NORM SEE BELOW Normal [facility] Comment on above: Result Comment: 3.3 - 4.4 LOW RISK 4.4 - 7.1 AVERAGE RISK 7.1 - 11.0 MODERATE RISK >11.0 HIGH RISK Performed By: #### R ENLISSY, LIPID #### [facility] Laboratory [address] [address] [address] Keeley Hoskins Cholesterol [Mass/Vol] 140 mg/dL Normal <=200 [facility] Comment on above: Performed By: #### R ENLISSY, LIPID #### [facility] Laboratory [address] [address] [address] Keeley Hoskins Cholesterol in HDL [Mass/Vol] 30 mg/dL Critically low 40-60 [facility] Comment on above: Performed By: #### R ENLISSY, LIPID #### [facility] Laboratory [address] [address] [address] Keeley Hoskins Cholesterol in LDL [Mass/Vol] 69.2 mg/dL Normal [facility] Comment on above: Performed By: #### R ENAL, LIPID #### [facility] Laboratory [address] [address] [address] Keeley Hoskins Cholesterol.total /Cholesterol in HDL [Mass ratio] 4.7 {ratio} Normal [facility] Comment on above: Performed By: #### R ENAL, LIPID #### [facility] Laboratory [address] [address] [address] Keeley Hoskins HDL NORMAL > or = 60 mg/dl - LO W CARDIOVASCULAR RISK <40 mg/dl - HIGH CARDIOVASCULAR RISK Normal [facility] Comment on above: Performed By: #### R ENAL, LIPID #### [facility] Laboratory [address] [place] [address] Dr. Keeley Hoskins LDL CALC NORMAL SEE BELOW Normal [facility] Comment on above: Result Comment: <100 mg/dl OPTIMAL 100 - 129 mg/dl NEAR OR ABOVE OPTIMAL 130 - 159 mg/dl BORDERLINE HIGH 160 - 189 mg/dl HIGH >190 mg/dl VERY HIGH Performed By: #### R ENAL, LIPID #### [facility] Laboratory [address] [place] [address] Dr. Keeley Hoskins Triglyceride [Mass/Vol] 204 mg/dL Critically high <=150 [facility] Comment on above: Performed By: #### R ENAL, LIPID #### [facility] Laboratory [address] [address] [address] Keeley Hoskins VLDL CALC 40.8 mg/dL Normal [facility] Comment on above: Performed By: #### R ENAL, LIPID #### [facility] Laboratory [address] [place] [address] Dr. Keeley Hoskins MICROALB CREAT RATIO RANDOMo n 03-30-2022 mALB 8.3 mg/L Normal <=30.0 [facility] Comment on above: Performed By: #### M CRR #### [facility] Laboratory [address] [place] [address] Dr. Keeley Hoskins MALB CR RATIO 466.0 mg/g Critically high 0.0-29.9 [facility] Comment on above: Performed By: #### M CRR #### [facility] Laboratory [address] [address] [address] Keeley Hoskins MALB CR RATIO RANGE SEE BELOW Normal [facility] Comment on above: Result Comment: NO M ICROALBUMINURIA 0-29 MG/G CLINICAL MICROALBUMINURIA 30-300 MG/G MACROALBUMINURIA >300 MG/G Performed By: #### M CRR #### [facility] Laboratory [address] [address] [address] Keeley Hoskins URINE CREAT 17.81 mg/dL Critically low 20.00-300.00 [facility] Comment on above: Performed By: #### M CRR #### [facility] Laboratory [address] [place] [address] Dr. Keeley Hoskins RENAL FUNCTION PANELon 03-30 Albumin [Mass/Vol] 4.2 g/dL Normal 3.4-5.0 [facility] Comment on above: Performed By: #### R ENAL, LIPID #### [facility] Laboratory [address] [address] [address] Keeley Hoskins Calcium [Mass/Vol] 9.2 mg/dL Normal 8.5-10.1 [facility] Comment on above: Performed By: #### R ENAL, LIPID #### [facility] Laboratory [address] [address] [address] Keeley Hoskins Chloride [Moles/Vol] 98 mmol/L Normal 98-107 [facility] Comment on above: Performed By: #### R ENAL, LIPID #### [facility] Laboratory [address] [address] [address] Keeley Hoskins CO2 [Moles/Vol] 28.6 mmol/L Normal 21.0-32.0 [facility] Comment on above: Performed By: #### R ENAL, LIPID #### [facility] Laboratory [address] [address] [address] Keeley Hoskins Creatinine [Mass/Vol] 1.17 mg/dL Critically high 0.55-1.02 [facility] Comment on above: Performed By: #### R ENAL, LIPID #### [facility] Laboratory [address] [address] [address] Keeley Hoskins EGFR-AF CITIZ[place] >60 Normal >=60 [facility] Comment on above: Performed By: #### R ENAL, LIPID #### [facility] Laboratory [address] [address] [address] Keeley Hoskins EGFR-NON AF CITIZEN OF [place] 50 mL/min/1.73m2 Critically low >=60 [facility] Comment on above: Performed By: #### R ENAL, LIPID #### [facility] Laboratory [address] [address] [address] Keeley Hoskins Glucose [Mass/Vol] 212 mg/dL Critically high 74-106 [facility] Comment on above: Performed By: #### R ENAL, LIPID #### [facility] Laboratory [address] [place] [address] Dr. Keeley Hoskins Phosphate [Mass/Vol] 4.0 mg/dL Normal 2.6-4.7 [facility] Comment on above: Performed By: #### R ENAL, LIPID #### [facility] Laboratory [address] [place] [address] Dr. Keeley Hoskins Potassium [Moles/Vol] 4.1 mmol/L Normal 3.5-5.1 [facility] Comment on above: Performed By: #### R ENAL, LIPID #### [facility] Laboratory [address] [place] [address] Dr. Keeley Hoskins Sodium [Moles/Vol] 136 mmol/L Normal 136-145 [facility] Comment on above: Performed By: #### R ENAL, LIPID #### [facility] Laboratory [address] [place] [address] Dr. Keeley Hoskins Urea nitrogen [Mass/Vol] 16.0 mg/dL Normal 7.0-18.0 [facility] Comment on above: Performed By: #### R ENAL, LIPID #### [facility] [address] [place] [address] Dr. Keeley Hoskins VITAMIN D 25 OHon 03-30-2022 VIT D 25-OH 33.8 ng/mL Normal The [facility] Comment on above: Performed By: #### V ITAD #### [facility] [address] [place] [address] Dr. Keeley Hoskins VIT D RANGES SEE BELOW Normal The [facility] Comment on above: Result Comment: <20 ng/mL Vit D deficient 20 - <30 ng/mL Vit D insufficient 30 - 100 ng/mL Vit D sufficient >100 ng/mL Potential Toxicity Performed By: #### V ITAD #### [facility] [address] [place] [address] Dr. Keeley Hoskins BNPon 03-16-2022 Natriuretic peptide B (Bld) [Mass/Vol] 20.0 pg/mL Normal <=450.0 [facility] Comment on above: Performed By: #### T 7, TSH, CMP, BNP #### [facility] [address] [place] [address] Dr. Keeley Hoskins CBC AUTO DIFFon 03-16-2022 BASO # 0.1 103/ul Normal 0.0-0.1 [facility] Comment on above: Performed By: #### R ENAL, LIPID #### [facility] [address] [place] [address] Dr. Keeley Hoskins Basophils/100 WBC (Bld) 1.0 % Normal 0.2-2.0 [facility] Comment on above: Performed By: #### R ENAL, LIPID #### [facility] [address] [place] [address] Dr. Keeley Hoskins EO # 0.1 103/ul Normal 0.0-0.7 The [facility] Comment on above: Performed By: #### R ENAL, LIPID #### [facility] [address] [place] [address] Dr. Keeley Hoskins Eosinophils/100 WBC (Bld) 1.8 % Normal 0.9-7.0 [facility] Comment on above: Performed By: #### R ENAL, LIPID #### [facility] [address] [place] [address] Dr. Keeley Hoskins Erythrocyte distribution width (RBC) [Ratio] 12.3 % Normal 11.0-15.0 [facility] Comment on above: Performed By: #### R ENLISSY, LIPID #### [facility] [address] [place] [address] Dr. Keeley Hoskins Hematocrit (Bld) [Volume fraction] 37.3 % Normal 36.0-48.0 [facility] Comment on above: Performed By: #### R ENLISSY, LIPID #### [facility] [address] [place] [address] Dr. Keeley Hoskins Hemoglobin (Bld) [Mass/Vol] 12.7 g/dL Normal 12.0-16.0 [facility] Comment on above: Performed By: #### R ENLISSY, LIPID #### [facility] [address] [place] [address] Dr. Keeley Hoskins IG # 0.04 10e3/ul Critically high 0.00-0.03 [facility] Comment on above: Performed By: #### R ENLISSY, LIPID #### [facility] [address] [place] [address] Dr. Keeley Hoskins IG % 0.6 % Critically high 0.0-0.5 [facility] Comment on above: Performed By: #### R ENLISSY, LIPID #### [facility] [address] [place] [address] Dr. Keeley Hoskins LYMPH # 1.8 103/ul Normal 1.2-3.8 [facility] Comment on above: Performed By: #### R ENLISSY, LIPID #### [facility] [address] [place] [address] Dr. Keeley Hoskins Lymphocytes/100 WBC (Bld) 26.4 % Normal 20.5-60.0 [facility] Comment on above: Performed By: #### R ENLISSY, LIPID #### [facility] [address] [place] [address] Dr. Keeley Hoskins MANUAL DIFF REQ NO Normal [facility] Comment on above: Performed By: #### R ENLISSY, LIPID #### [facility] [address] [place] [address] Dr. Keeley Hoskins MCH (RBC) [Entitic mass] 28.0 pg Normal 26.7-34.0 [facility] Comment on above: Performed By: #### R ENAL, LIPID #### [facility] [address] [place] [address] Dr. Keeley Hoskins MCHC (RBC) [Mass/Vol] 34.0 g/dL Normal 29.9-35.2 [facility] Comment on above: Performed By: #### R ENAL, LIPID #### [facility] [address] [place] [address] Dr. Keeley Hoskins MCV (RBC) [Entitic vol] 82.2 fL Normal 81.0-99.0 The [facility] Comment on above: Performed By: #### R ENAL, LIPID #### [facility] [address] [place] [address] Dr. Keeley Hoskins MONO # 0.5 103/ul Normal 0.3-0.8 The [facility] Comment on above: Performed By: #### R ENAL, LIPID #### [facility] [address] [place] [address] Dr. Keeley Hoskins Monocytes/100 WBC (Bld) 6.6 % Normal 1.7-12.0 The [facility] Comment on above: Performed By: #### R ENAL, LIPID #### [facility] [address] [place] [address] Dr. Keeley Hoskins NEUT # 4.4 103/ul Normal 1.4-6.5 The [facility] Comment on above: Performed By: #### R ENAL, LIPID #### [facility] [address] [place] [address] Dr. Keeley Hoskins Neutrophils/100 WBC (Bld) 63.6 % Normal 43.0-75.0 [facility] Comment on above: Performed By: #### R ENAL, LIPID #### [facility] [address] [place] [address] Dr. Keeley Hoskins Platelet mean volume (Bld) [Entitic vol] 10.4 fL Normal 9.5-13.5 [facility] Comment on above: Performed By: #### R ENAL, LIPID #### [facility] [address] [address] [address] Keeley Hoskins PLT 283 103/ul Normal 150-450 [facility] Comment on above: Performed By: #### R ENAL, LIPID #### [facility] [address] [address] [address] Keeley Hoskins RBC 4.54 106/ul Normal 4.20-5.40 [facility] Comment on above: Performed By: #### R ENAL, LIPID #### [facility] [address] [address] [address] Keeley Hoskins WBC 6.9 103/ul Normal 4.0-11.0 [facility] Comment on above: Performed By: #### R ENAL, LIPID #### [facility] [address] [place] [address] Dr. Keeley Hoskins FREE THYROXINE INDEX T7on FTI 2.91 Normal 1.30-4.50 [facility] Comment on above: Performed By: #### R ENAL, LIPID #### [facility] [address] [address] [address] Keeley Hoskins T3U 30.0 % Normal 30.0-39.0 [facility] Comment on above: Performed By: #### R ENAL, LIPID #### [facility] [address] [address] [address] Keeley Hoskins T4 [Mass/Vol] 9.70 ug/dL Normal 4.80-13.90 [facility] Comment on above: Performed By: #### R ENAL, LIPID #### [facility] [address] [address] [address] Keeley Hoskins IRONon 03-16-2022 Iron [Mass/Vol] 72.0 ug/dL Normal 50.0-170.0 [facility] Comment on above: Performed By: #### I MARY #### [facility] [address] [address] [address] Keeley Hoskins PROF 14(COMP METB)on 022 Albumin [Mass/Vol] 3.9 g/dL Normal 3.4-5.0 [facility] Comment on above: Performed By: #### T 7, TSH, CMP, BNP #### [facility] [address] [place] [address] Dr. Keeley Hoskins Albumin/Globulin [Mass ratio] 1.1 {ratio} Normal [facility] Comment on above: Performed By: #### T 7, TSH, CMP, BNP #### [facility] [address] [place] [address] Dr. Keeley Hoskins ALP [Catalytic activity/Vol] 143 U/L Critically high 46-116 [facility] Comment on above: Performed By: #### T 7, TSH, CMP, BNP #### [facility] [address] [place] [address] Dr. Keeley Hoskins ALT [Catalytic activity/Vol] 43 U/L Normal 14-59 [facility] Comment on above: Performed By: #### T 7, TSH, CMP, BNP #### [facility] [address] [place] [address] Dr. Keeley Hoskins Anion gap [Moles/Vol] 15.6 mmol/L Normal [facility] Comment on above: Performed By: #### T 7, TSH, CMP, BNP #### [facility] [address] [place] [address] Dr. Keeley Hoskins AST [Catalytic activity/Vol] 23 U/L Normal 15-37 [facility] Comment on above: Performed By: #### T 7, TSH, CMP, BNP #### [facility] [address] [place] [address] Dr. Keeley Hoskins Bilirubin [Mass/Vol] 0.6 mg/dL Normal 0.2-1.0 The [facility] Comment on above: Performed By: #### T 7, TSH, CMP, BNP #### [facility] [address] [place] [address] Dr. Keeley Hoskins Calcium [Mass/Vol] 9.2 mg/dL Normal 8.5-10.1 [facility] Comment on above: Performed By: #### T 7, TSH, CMP, BNP #### [facility] [address] [address] [address] Keeley Hoskins Chloride [Moles/Vol] 96 mmol/L Critically low 98-107 [facility] Comment on above: Performed By: #### T 7, TSH, CMP, BNP #### [facility] [address] [address] [address] Keeley Hoskins CO2 [Moles/Vol] 25.1 mmol/L Normal 21.0-32.0 [facility] Comment on above: Performed By: #### T 7, TSH, CMP, BNP #### [facility] [address] [address] [address] Keeley Hoskins Creatinine [Mass/Vol] 1.14 mg/dL Critically high 0.55-1.02 [facility] Comment on above: Performed By: #### T 7, TSH, CMP, BNP #### [facility] [address] [address] [address] Keeley Hoskins EGFR-AF CITIZEN OF [place] >60 Normal >=60 [facility] Comment on above: Performed By: #### T 7, TSH, CMP, BNP #### [facility] [address] [address] [address] Keeley Hoskins EGFR-NON AF CITIZEN OF [place] 52 mL/min/1.73m2 Critically low >=60 [facility] Comment on above: Performed By: #### T 7, TSH, CMP, BNP #### [facility] [address] [address] [address] Keeley Hoskins Globulin (S) [Mass/Vol] 3.4 g/dL Normal [facility] Comment on above: Performed By: #### T 7, TSH, CMP, BNP #### [facility] [address] [address] [address] Keeley Hoskins Glucose [Mass/Vol] 438 mg/dL Critically high 74-106 [facility] Comment on above: Performed By: #### T 7, TSH, CMP, BNP #### [facility] [address] [address] [address] Keeley Hoskins Potassium [Moles/Vol] 4.7 mmol/L Normal 3.5-5.1 [facility] Comment on above: Performed By: #### T 7, TSH, CMP, BNP #### [facility] [address] [place] [address] Dr. Keeley Hoskins Protein [Mass/Vol] 7.3 g/dL Normal 6.4-8.2 [facility] Comment on above: Performed By: #### T 7, TSH, CMP, BNP #### [facility] [address] [place] [address] Dr. Keeley Hoskins Sodium [Moles/Vol] 132 mmol/L Critically low 136-145 [facility] Comment on above: Performed By: #### T 7, TSH, CMP, BNP #### [facility] [address] [place] [address] Dr. Keeley oHskins Urea nitrogen [Mass/Vol] 17.0 mg/dL Normal 7.0-18.0 [facility] Comment on above: Performed By: #### T 7, TSH, CMP, BNP #### [facility] [address] [place] [address] Dr. Keeley Hoskins Urea nitrogen/Creatini ne [Mass ratio] 14.9 mg/mg Normal The [facility] Comment on above: Performed By: #### T 7, TSH, CMP, BNP #### [facility] [address] [place] [address] Dr. Keeley Hoskins TSHon 03-16-2022 TSH 2.240 uIU/mL Normal 0.358-3.740 The [facility] Comment on above: Performed By: #### R ENAL, LIPID #### [facility] [address] [place] [address] Dr. Keeley Hoskins KNEE RIGHT 3 [facility] 1 KNEE RIGHT 3 S [facility] Department of Radiology [address] [place] [phone] ===== Patient Name: SCAR JEFFREY : 1980 Sex: F Age: Race: White Pt. Location: 84 Patient Status: O Ordered Date: 06/13/2021 9:05:00 AM Completed Date: 06/13/2021 09:13 AM Requesting Provider: TONYA CENTENO Attending Provider: TONYA CENTENO Report Copy To: Signs & Symptoms: M25.561 Pain in right knee I10 History: Comments: standing , Weight Bearing?: Y Exam: KNEE RIGHT 3 [facility] ===== KNEE RIGHT 3 [facility] 06/13/2021 9:13 AM CLINICAL INDICATIONS: M25.561 [...] pathology Electronically signed: Toyin Juan. Transcribed by: [email or web address], User Resident: Electronically Signed by: TOYIN JUAN @ 06/13/2021 11:03 AM Normal The [facility] Comment on above: Order Comment: stand ing , Weight Bearing?: Y KNEE RIGHT 3 [facility] KNEE RIGHT 3 [facility] Department of Radiology [address] [place] [phone] ===== Patient Name: SCAR JEFFREY : 1980 Sex: F Age: Race: White Pt. Location: 84 Patient Status: O Ordered Date: 11/15/2020 10:15:00 AM Completed Date: 11/15/2020 10:33 AM Requesting Provider: TONYA CENTENO Attending Provider: TONYA CENTENO Report Copy To: Signs & Symptoms: M25.561 Pain in right knee I10 History: [place] Comments: evaluate Exam: KNEE RIGHT 3 VWS [...] reviewed the images and reports Electronically signed: Nalia Puentes. Transcribed by: [email or web address], User Resident: GREGG LEMONS Electronically Signed by: NAILA PUENTES @ 11/15/2020 11:25 AM I personally read this/these film(s) with this resident Normal The [facility] Comment on above: Order Comment: evalu ate TIBIA FIBULA RIGHTon 021 TIBIA FIBULA RIGHT [facility] Department of Radiology [address] [place] [phone] ===== Patient Name: SCAR JEFFREY : 1980 Sex: F Age: Race: White Pt. Location: 84 Patient Status: O Ordered Date: 11/15/2020 9:55:00 AM Completed Date: 11/15/2020 10:33 AM Requesting Provider: TONYA CENTENO Attending Provider: TONYA CENTENO Report Copy To: Signs & Symptoms: S82.142A Displaced bicondylar fracture of right tibia, init I10 History: [place] Comments: evaluate Exam: TIBIA FIBULA RIGHT ===== [...] abnormality. Electronically signed: Naila Puentes. Transcribed by: [email or web address], User Resident: Electronically Signed by: NAILA PUENTES @ 11/15/2020 11:37 AM Normal [facility] Comment on above: Order Comment: evalu ate Vital Signs Date Time Vital Sign Value Performing Clinician Facility 09-23-2024 13:49-0500 Blood Pressure Location Kobe ROBERTSON [facility] [place] 09-23-2024 13:49-0500 Diastolic blood pressure 64 mm[Hg] Kobe NILL [facility] 09-23-2024 13:49-0500 Heart rate 72 /min Kobe NILL [facility] 09-23-2024 13:49-0500 Respiratory rate 16 /min Kobe NILL [facility] 09-23-2024 13:49-0500 Systolic blood pressure 146 mm[Hg] Kobe NILL [facility] 06-23-2024 10:10-0400 Body height 166.4 cm Zay Gonzalez MD Work Phone: [facility] 06-23-2024 10:10-0400 Body mass index (BMI) [Ratio] 59.16 kg/m2 Zay Gonzalez MD Work Phone: [facility] 06-23-2024 10:10-0400 Body weight 163.75 kg Zay Gonzalez MD Work Phone: [facility] 06-23-2024 10:10-0400 Diastolic blood pressure 60 mm[Hg] Zay Gonzalez MD Work Phone: [facility] 06-23-2024 10:10-0400 Heart rate 98 /min Zay Gonzalez MD Work Phone: [facility] 06-23-2024 10:10-0400 Respiratory rate 18 /min Zay Gonzalez MD Work Phone: [facility] 06-23-2024 10:10-0400 Systolic blood pressure 160 mm[Hg] Zay Gonzalez MD Work Phone: [facility] 06-03-2024 16:01-0400 Blood Pressure Location Kobe NILL [facility] 06-03-2024 16:01-0400 Diastolic blood pressure 70 mm[Hg] Kobe NILL [facility] 06-03-2024 16:01-0400 Heart rate 72 /min Kobe ROBERTSON [facility] 06-03-2024 16:01-0400 Respiratory rate 16 /min Kobe ROBERTSON [facility] 06-03-2024 16:01-0400 Systolic blood pressure 132 mm[Hg] Kobe ROBERTSON [facility] Encounters Encounter Date Encounter Type Care Provider Facility Start: 09-23-2024 End: 09-23-2024 ambulatory Kobe ROBERTSON Facility:[facility] Start: 09-23-2024 End: 09-23-2024 Patient encounter procedure Kobe ROBERTSON [facility] Start: 08-19-2024 ambulatory Castillo Rollins acility:[facility] Start: 06-24-2024 End: 06-24-2024 ambulatory Kobe ROBERTSON Facility:[facility] Start: 06-24-2024 End: 06-24-2024 Patient encounter procedure Kobe ROBERTSON [facility] Start: 06-23-2024 End: 06-23-2024 Bamboo flowsheet Zay Gonzalez MD Work Phone: [facility] Start: 06-23-2024 End: 06-23-2024 Bamboo flowsheet Zay Gonzalez MD Work Phone: [facility] Start: 06-23-2024 End: 06-23-2024 Office outpatient visit 40 minutes Zay Gonzalez MD Work Phone: [facility] Comment on above: Type 1 diabetes bar itus with hyperglycemia (HCC) (CMS/HCC) (Primary Dx); Vitamin D deficiency; Encounter for dietary consultation; Insulin long-term use ([facility]); Microalbuminuria; Insulin pump in place; Encounter for fitting or adjustment of insulin pump; Primary hypertension (CMS/[facility]); 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 ([facility]) Start: 06-23-2024 End: 06-23-2024 ambulatory ZAY GONZALEZ Not Available Start: 06-18-2024 End: 06-18-2024 Lab Drop off Kobe ROBERTSON [facility] Start: 06-18-2024 End: 06-18-2024 ambulatory Kobe ROBERTSON Facility:[facility] Start: 06-18-2024 End: 06-18-2024 Patient encounter procedure Kobe ROBERTSON [facility] Start: 06-03-2024 End: 06-03-2024 ambulatory Lorenzo Cortez Facility:[facility] Start: 06-03-2024 End: 06-03-2024 Patient encounter procedure Kobe ROBERTSON [facility] Start: 01-23-2024 End: 01-23-2024 ambulatory THALIA H [...] Start: 10-15-2020 End: 11-01-2020 ambulatory TONYA CENTENO Facility:[facility] Procedures Date Procedure Procedure Detail Performing Clinician [...] procedure 10/27/2024 10:10 AM EST Office Visit [facility] [address] [place] [id number] Zay Gonzalez MD [address] [place] [address] [facility] Start: 06-23-2024 End: 06-23-2024 Patient encounter procedure 06/23/2024 10:40 AM EDT Office Visit [facility] [address] [place] [id number] Zay Gonzalez MD [address] [place] [address] Type 1 diabetes mellitus with hyperglycemia (HCC) ([facility]/HCC) [facility] Comment on above: Type 1 diabetes bar itus with hyperglycemia (HCC) (CMS/HCC) Payers Date Payer Category Payer Self-pay 2019 Medicare (Managed Care) [employer] [id number] 2017 Medicaid [place] [id number] 1978 Unknown [id number] 2.16.840.1.158500.3.579.2. 647 1978 Unknown [id number] 2.16.840.1.075944.3.579.2. 593 1978 Unknown [id number] 2.16.840.1.496952.3.579.2. 593 1978 Unknown [id number] 2.16.840.1.235447.3.579.2. 593 1978 Unknown [id number] 2.16.840.1.993601.3.579.2. 593 1978 Unknown [id number] 2.16.840.1.776429.3.579.2. 593 1978 Unknown [id number] 2.16.840.1.287360.3.579.2. 593 1978 Unknown [id number] 2.16.840.1.964273.3.579.2. 593 1978 Unknown [id number] 2.16.840.1.543710.3.579.2. 593 1978 Unknown [id number] 2.16.840.1.002767.3.579.2. 593 1978 Unknown [id number] 2.16.840.1.008370.3.579.2. 1259 1978 Unknown [id number] 2.16.840.1.500456.3.579.2. 1259 1978 Unknown [id number] 2.16.840.1.608755.3.579.2. 1259 1978 Unknown [id number] 2.16.840.1.121502.3.579.2. 727 1978 Unknown [id number] 2.16.840.1.443868.3.579.2. 727 1978 Unknown [id number] 2.16.840.1.952225.3.579.2. 727 1978 Unknown [id number] 2.16.840.1.409256.3.579.2. 727 1978 Unknown [id number] 2.16.840.1.953270.3.579.2. 727 1961 Medicaid [id number] 1961 Private Health Insurance [id number] Unknown [id number] 2.16.840.1.825317.3.579.2. 531 Social History Date Type Detail Facility Start: 06-03-2024 End: 09-23-2024 Tobacco smoking status Ex-smoker (finding) [facility]: 01-23-[facility]24 Sex Assigned At Female F [facility] Start: 09-10-2005 End: 09-10-2016 History of tobacco use Current smoker [facility] Start: 09-10-2005 End: 09-10-2016 History of tobacco use Cigarette Smoker [facility] Start: 12-18-2023 Tobacco use and exposure Smokeless tobacco non-user [facility] Start: 06-12-2024 Alcoholic beverage intake Ex-drinker (finding) [facility] Start: 01-23-2024 History of Social function [facility] Start: 1980 Sex assigned at Not on file N [facility] Medical Equipment Procedure Code Equipment Code Equipment Origin al Text Equipment Identifier Dates [id number] Start: 06-10-2024 End: 06-10-2025 Functional Status Date Assessment Result Facility 09-23-2024 Functional Status N/A [facility] 06-03-2024 Functional Status N/A [facility] Clinical Note 09-23-2024 Note Date & Type Note Facility 09-23-2024 Note [facility] Surgery Offi ce/Clinic Note Chief Complaint consultation [...] (corpus and cervix) (more content not included)... [facility] Comment on above: Result Comment: Elec [...] readings . wants to check her for [place]'s disease since her mother had it. 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 (CMS/HCC) Migraine (CMS/HCC) [...] Type 1 diabetes mellitus with hyperglycemia (HCC) ([facility]) - POCT glucose manually resulted [...] Encounter for dietary consultation Insulin long-term use ([facility]) Microalbuminuria Insulin pump in place Encounter for fitting or adjustment of insulin pump Primary hypertension ([facility]/HCC) 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 documented in this encounter [facility] Clinical Note 06-03-2024 Note Date & Type [...] chloride 10 mEq (more content not included)... [facility] Comment on above: Result Comment: Elec [...] 85% of maximum predicted heart rate. [facility] Evaluation + Plan note Note Date & Type Note Facility Evaluation + Plan note Future Appointments Appointment Date:06/18/2024 03:00:00 PM Scheduled Provider:Kobe ROBERTSON MD Location:[facility] Appointment Type: [facility] Evaluation + Plan note Note Date & Type Note Facility Evaluation + Plan note Future Appointments Appointment Date:06/24/2024 02:00:00 PM Scheduled Provider:Kobe ROBERTSON MD Location:[facility] Appointment Type: Established 15 [facility] Evaluation note Note Date & Type Note Facility Evaluation note Diagnosis Type 1 diabetes mellitus with hyperglycemia (HCC) ([facility]/HCC)- Primary Vitamin D deficiency Encounter for dietary consultation Insulin long-term use ([facility]/HCC) Encounter for long-term (current) use of insulin Microalbuminuria Proteinuria Insulin pump in place Insulin pump status Encounter for fitting or adjustment of insulin pump Fitting and adjustment of insulin pump Primary hypertension (CMS/HCC) Unspecified essential hypertension 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 ([facility]/HCC) documented in this encounter [facility] Hospital course Narrative Note Date & Type Note Facility Hospital course Narrative No data available for this section [facility] Discharge instructions Note Date & Type Note Facility Hospital Discharge instructions No data available for this section [facility] Progress note Note Date & Type Note Facility Progress note No data available for this section [facility] Summary Purpose Family History No Family History [...] and content) DATE CREATED AUTHOR 10/02/[address] [facility] DATE CREATED AUTHOR AUTHOR'S ORGANIZ ATION 01/23/2023 [facility] DATE CREATED AUTHOR AUTHOR'S ORGANIZ ATION 06/24/2024 [facility] EPIC DATE CREATED AUTHOR AUTHOR'S ORGANIZ ATION 06/27/2024 [facility] DATE CREATED AUTHOR AUTHOR'S ORGANIZ ATION 08/22/2024 [facility] DATE CREATED AUTHOR AUTHOR'S ORGANIZ ATION 09/03/2024 [facility] DATE CREATED AUTHOR AUTHOR'S ORGANIZ ATION 09/26/2024 [facility] Patient Care team informatio n (unrecognized section and content) Supply Coordinator Relationship Specialty Start Date End Date Lorenzo Cortez MD [address] [place] [id number] PCP - General Family Medicine 12/18/23 Supply Coordinator Relationship Specialty Start Date End Date Lorenzo Cortez MD [address] [place] [address] PCP - General Family Medicine 12/18/23 Reason [...] RECORDS. [facility] [employer] provides no warranty or guarantee of the accuracy or completeness of information in this document.
[2024-10-06 11:02] LABS: Anion Gap 12.4; BUN Creatinine Ratio 11.9; Calcium 9.3 mg/dL (8.5-10.1); Carbon Dioxide 28.8 mmol/L (21.0-32.0); Chloride 100 mmol/L (98-107); Estimated GFR (African America >60 (>=60 mL/min/1.73m^2); Estimated GFR (Non-African Ame 54 (>=60 mL/min/1.73m^2); Glucose 132 mg/dL (74-106); Potassium 4.2 mmol/L (3.5-5.1); Sodium 137 mmol/L (136-145)
== END 2024-10-06 09:28 | disposition home or self-care (01) ==
PROVIDERS: PCP Family Medicine; Visit Provider Family Medicine
DX: E86.0 Dehydration (principal)
CPT/HCPCS: 36415; 80048

== ENCOUNTER 2025-02-16 12:49 | Outpatient (OUT) | payer MEDICARE, MEDICAID, SELFPAY ==
--- OUTSIDE RECORDS SUMMARY | 2025-01-05 09:03 | XMS_ITS ---
Author Organization [facility] in [place] Address [address] [place] [address] Care Team Providers Care [employer] Mechanic Name Role Phone DiegoJoe Primary Care Provider [phone] REASON FOR VISIT refill Medications Medication SIG (Take, Route, Fr equency, Duration) Notes Start Date End Date Status levETIRAcetam 500 MG take 1 tablet by mo [facility] every 12 hours Orally every 12 hrs for 30 days Active Encounters Encounter Location Date Provider Diagnosis [facility] [address] [place] [address] 01/05/2025 Joe Cortez Plan Of Treatment Medication Medication Name Sig Start Date Stop Date Notes levETIRAcetam 500 MG take 1 tablet by mo ut every 12 hours Orally every 12 hrs for 30 days Next Appt Details Provider Name:Joe Katelynn Cortez, 10:45:00 AM, [address] [facility], [place], [address], Provider Name:Joe Pace Diego, 11:15:00 AM, [address] [facility], [place], [address], Progress Notes * Scar JEFFREY MDOB:1980 (44 yo F)Acc No.[id number]:01/05/2025 Patient: Scar FLOWERS :1980 A ge:44 Y S ex:Female Address:[facility] [address], [address] * Refills Refill levETIRAcetam Tablet, 500 MG, Orally, 60, take 1 tablet by mouth every 12 hours, every 12 hrs, 30 days, Refills=3 * true * Date: Generated for Svitlana sanches/Marissa/Yuriitting on: 0 02/16/2025 12:54 PM EDT
--- OUTSIDE RECORDS SUMMARY | 2025-02-09 10:30 | XMS_ITS ---
Author Organization [facility] in [place] Address [address] [place] [address] Care Team Providers Care Forging Die Sinker Name Role Phone Joe Cortez Primary Care Provider Allergies Allergen (clinical drug ingredient) Drug/Non Drug Allergy documented on EMR Reaction Allergy Type Onset Date Status opioids (uncoded) throat swelling/vomiti ng Allergy Active valproate Depakote chest tightness/throa t swelling Drug Allergy Active lamotrigine LaMICtal rash Drug Allergy Activ e oxcarbazepine Trileptal chest tightness/throa t swelling Drug Allergy Active Morphine and Related vomiting Drug Allergy Active Penicillin hives Drug Allergy Active REASON FOR VISIT sinus infection, stuffed nose sore throat, started last , not getting better Medications Medication SIG (Take, Route, Frequency, Duration) Notes Start Date End Date Status Famotidine 20 MG TAKE 1 TABLET TWICE DAILY for 90 Active Ferrous Sulfate 325 (65 Fe) MG 1 tablet Orally twice daily for 30 days 04/16/2024 Active Furosemide 80 MG TAKE 1 TABLET EVERY MORNING for 90 Active Gvoke HypoPen Active HumuLIN R U-500 (CONCENTRATED) 500 UNIT/ML VIA INSULIN PUMP Subcutaneous for 22 days Active amLODIPine Besylate 10 MG 1 tablet Orall y Once a day for 90 days 04/18/2024 Active Aspirin 81 81 MG 1 tablet Orally Once a day Active buPROPion HCl ER (XL) 300 MG take 1 tablet by mouth every morning for 30 Active Citalopram Hydrobromide 40 MG 1 tablet Orally Once a day for 90 days Active Albuterol Sulfate HFA 108 (90 Base) MCG/ACT INHALE 2 PUFFS EVERY 4 TO 6 HOURS NEEDED for 50 Active Plavix 75 MG 1 tablet Orally Once a day for 30 days 02/09/2025 Active Simvastatin 20 MG TAKE 1 TABLET EVERY DAY for 90 Active Vitamin D (Ergocalciferol) 1.25 MG (28664 UT) take 1 capsule by mouth every week for 84 Active levoFLOXacin 500 MG 1 tablet Orally Once a day for 10 day(s) 02/09/2025 Active Advair HFA 230-21 MCG/ACT 2 puffs Inhala tion Twice a day 08/20/2024 Active metFORMIN HCl 500 MG 1 tablet with a trini l Orally Once a day Active Omeprazole 40 MG TAKE 1 CAPSULE EVERY DAY for 90 Active Potassium Chloride ER 10 MEQ TAKE 1 CAPSULE TWICE DAILY for 90 Active Pyridium 200 MG 1 tablet after meals Orally Three times a day for 2 days 05/23/2024 Active risperiDONE 2 MG TAKE 1 TABLET AT BED TIME for 90 Active LORazepam 1 MG 1 Oral BID for 30 days F41.9 02/26/2023 Active Losartan Potassium 100 MG TAKE 1 TABLET EVERY DAY Orally Once a day for 90 days Active levETIRAcetam 500 MG take 1 tablet by [facility] every 12 hours Orally every 12 hrs for 30 days Active Levothyroxine Sodium 100 MCG TAKE 1 TABLET EVERY DAY for 90 days Active Social History Tobacco Use: Social History Observation Description Date Details (start date - stop date) Former Smoker 09/10/2005 - 09/10/2016 Tobacco Use/Smoking Question Answer Notes Patient is a former smoker When did you start smoking? 09/10/2005 When did you stop smoking? 09/10/2016 How long has it been since you last smoked? 5-10 years Problems Problem Type SNOMED Code ICD Code Onset Dates Problem Status W/U Status Risk Notes Problem Transient arterial retinal occlusion (87705246) Amaurosis fugax, 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) Active confirmed Problem Amaurosis fugax of left eye ([id number] 9109) Amaurosis fugax of left eye (G45.3) Active confirmed Vital Signs Weight 245.2 lbs 02/09/2025 Height 66 in 02/09/2025 Blood pressure systolic 140 mm Hg 02/10/20 25 Blood pressure diastolic 72 mm Hg 025 BMI 39.57 kg/m2 02/09/2025 Procedures Procedure Date Ordered Date Performed Result Body Sit e CARDIO Echocardiogram 02/09/2025 N/A Holter Monitor - 3 days up to 14 days 02/09/2025 N/A Encounters Encounter Location Date Provider Diagnosis [facility] [address] [place] [address] 02/09/2025 Joe Cortez Morbid (severe) obes ity due to excess calories E66.01 ; 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 You may use a humidifier or vaporizer to help keep the drainage moist. Xhtk-ham-[id number] Nasal Saline may help the stuffy and runny nose. Use Ibuprofen and or Tylenol as needed for fever, chills, body aches or pain. Children 5 years old should not be given bxzw-wvm-nyfvoni cough and cold medications such as guaifenesin and dextromethorphan. If you're over age 5, you may try gufu-vvx-qieabjd cold medications such as guaifenesin and dextromethorphan, or multi-symptom cold reliever such as Dayquil to help reduce the symptoms. Antibiotics have been prescribed. You should take these until completed and follow the directions. Antibiotics can sometimes cause upset stomach, and in rare cases, serious allergic reactions or serious gastrointestinal problems. If you start having severe abdominal pain, severe vomiting, or bloody diarrhea, you should be reevaluated by your physician or urgent care immediately. Follow up with your Primary Care Provider or return to clinic if symptoms do not improve within 3-5 days. If you develop severe symptoms such as shortness of breath, repeated vomiting, coughing up blood, or chest pain you should go to the emergency room or call 911 02/09/2025 Amaurosis fugax of left eye (ICD-10 - G45.3) 02/09/2025 Amaurosis fugax, both eyes (ICD-10 - G45.3) started on lavix til work up can be compltede with [facility] Plan Of Treatment Medication Medication Name Sig Start Date Stop Date Notes Plavix 75 MG 1 tablet Orally Once a day for 30 days 2024 levoFLOXacin 500 MG 1 tablet Orally Once a day for 10 day(s) 02/09/2025 Treatment Notes Assessment Notes Acute bronchitis, unspecified organism R est and drink more liquids, especially water. You may use a humidifier or vaporizer to help keep the drainage moist. Neqq-ysp-qklpaoz Nasal Saline may help the stuffy and runny nose. Use Ibuprofen and or Tylenol as needed for fever, chills, body aches or pain. Children 5 years old should not be given aoll-kxl-lhuyreq cough and cold medications such as guaifenesin and dextromethorphan. If you're over age 5, you may try djyl-xok-ovozlgn cold medications such as guaifenesin and dextromethorphan, or multi-symptom cold reliever such as Dayquil to help reduce the symptoms. Antibiotics have been prescribed. You should take these until completed and follow the directions. Antibiotics can sometimes cause upset stomach, and in rare cases, serious allergic reactions or serious gastrointestinal problems. If you start having severe abdominal pain, severe vomiting, or bloody diarrhea, you should be reevaluated by your physician or urgent care immediately. Follow up with your Primary Care Provider or return to clinic if symptoms do not improve within 3-5 days. If you develop severe symptoms such as shortness of breath, repeated vomiting, coughing up blood, or chest pain you should go to the emergency room or call 911 Amaurosis fugax, both eyes started on la vix til work up can be compltede with [facility] Pending Test Test Name Order Date CARDIO Echocardiogram 02/09/2025 CBC AUTO DIFF 02/09/2025 CRP 02/09/2025 SED RATE WESTERGREN 02/09/2025 Holter Monitor - 3 days up to 14 days MR BRAIN WO CONTRAST 02/09/2025 MR angio head wo con 02/09/2025 MR angio neck wo con 02/09/2025 Next Appt Details Follow Up: 3-5 days if not i mproving, Reason: Provider Name:Joe Cortez, 10:45:00 AM, [address] [facility], [place], [address], Provider Name:Joe Cortez, 11:15:00 AM, [address] [facility], [place], [address], Progress Notes * Scar JEFFREY MDOB:1980 (44 yo F)Acc No.[id number]:02/09/2025 Progress Note Patient: Scar FLOWERS Provider: Brice Cortez ([facility])MD :1980 A ge:44 Y S ex:Female Date:02/09/2025 Address:[address] [place], [place] [id number] Check In:02:06 PM ESTCheck O ut:02:49 PM EST Subjective: * Chief Complaints: * S inus infectionStuffed nose sore throatStarted last Not getting better * HPI: B ronchitis: The patient complains of symptoms of bronchitis. The symptoms have been present for 1-2 days. The symptoms are moderate. The patient has not been exposed to sick contacts. Symptomatic treatment has included OTC medication. Associated symptoms include nasal congestion, postnasal drainage, congested ears, cough, fever, chills, body aches. * ROS: E NT: Ear pain d enies. H oarseness d enies. ? C ardiovascular: Edema d enies. P alpitations d enies. ? R espiratory: Comments S ee HPI for details. G astrointestinal: Abdominal pain d enies. D iarrhea d enies. N ausea d enies. S kin: Rash d enies. * Active Problem List R22.0 Localized swelling, mass and lump, head Modified On:12/28/2022W/U Status:confirmed S82.144A Nondisplaced bicondy lar fracture of right tibia, initial encounter for closed fracture Modified On:12/28/2022 Status:confirmed Z79.4 watermaster (current) use of insulin Modified On:12/28/2022 Status:confirmed R53.83 Fatigue Modified On:01/26/2023 Status:confirmed I10 Hypertension Modified On:02/26/2023 Status:confirmed G56.01 Carpal tunnel syndro me, bilateral Modified On:12/28/2022 Status:confirmed F17.210 Cigarette smoker Modified On:12/28/2022 Status:confirmed K21.9 GERD (gastroesophage al reflux disease) Modified On:12/28/2022 Status:confirmed R56.9 Seizures Modified On:12/28/2022 Status:confirmed R60.9 Edema Modified On:12/28/2022 Status:confirmed G47.00 Insomnia Modified On:12/28/2022 Status:confirmed K21.9 Acid reflux Modified On:12/28/2022 Status:confirmed G43.909 Migraine Modified On:12/28/2022 Status:confirmed M50.30 Degenerative disc di sease, cervical Modified On:12/28/2022 Status:confirmed M25.561 Knee pain, right Modified On:12/28/2022 Status:confirmed Z80.0 Family history of co kirti cancer Modified On:12/28/2022 Status:confirmed M62.08 Diastasis recti Modified On:12/28/2022 Status:confirmed A08.4 Viral gastroenteriti s Modified On:12/28/2022 Status:confirmed R49.0 Hoarse Modified On:12/28/2022 Status:confirmed R60.9 Fluid retention in t issues Modified On:12/28/2022 Status:confirmed R22.0 Mass of head Modified On:12/28/2022U Status:confirmed J38.3 Lesion of vocal cord Modified On:12/28/2022U Status:confirmed E10.40 Diabetic neuropathy associated with type 1 diabetes mellitus Modified On:02/26/2023 Status:confirmed I82.612 Acute embolism and t hrombosis of superficial vein of left upper extremity Modified On:12/28/2022 Status:confirmed E10.3293 Type 1 diabetes bar itus with mild nonproliferative diabetic retinopathy without macular edema, bilateral Modified On:12/28/2022 Status:confirmed F41.8 Anxiety and depressi on Modified On:12/28/2022 Status:confirmed E66.3 Overweight Modified On:12/28/2022 Status:confirmed G25.0 Essential tremor Modified On:12/28/2022 Status:confirmed H26.039 Infantile and juveni le nuclear cataract, unspecified eye Modified On:12/28/2022 Status:confirmed H52.203 Unspecified astigmat ism, bilateral Modified On:12/28/2022 Status:confirmed J37.0 Chronic laryngitis Modified On:12/28/2022 Status:confirmed K21.9 Gastro-esophageal re flux disease without esophagitis Modified On:12/28/2022 Status:confirmed M25.521 Pain in right elbow Modified On:12/28/2022 Status:confirmed U07.1 COVID-19 Modified On:12/28/2022 Status:confirmed J04.0 Acute laryngitis, wi thout mention of obstruction Modified On:12/28/2022 Status:confirmed 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 Modified On:12/28/2022 Status:confirmed M54.12 Radiculopathy, cervi tyree region Modified On:12/28/2022 Status:confirmed E66.01 Morbid (severe) obes ity due to excess calories Modified On:12/28/2022 Status:confirmed R93.89 Abnormal findings on diagnostic imaging of other specified body structures Modified On:01/05/2023 Status:confirmed E10.3593 Type 1 diabetes bar itus with proliferative diabetic retinopathy without macular edema, bilateral Modified On:02/22/2023 Status:confirmed H25.13 Age-related nuclear cataract, bilateral Modified On:06/15/2023W/U Status:confirmed H52.13 Myopia, bilateral Modified On:02/22/2023 Status:confirmed B35.1 Onychomycosis Modified On:02/26/2023 Status:confirmed E10.3553 Type 1 diabetes abr itus with stable proliferative diabetic retinopathy, bilateral Modified On:03/08/2023 Status:confirmed 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 Modified On:03/15/2023 Status:confirmed Z00.00 Well adult Modified On:08/15/2023 Status:confirmed M79.673 Foot pain Modified On:11/05/2023 Status:confirmed R22.1 Neck mass Modified On:11/26/2023 Status:confirmed G47.30 Sleep apnea Modified On:11/26/2023 Status:confirmed J32.9 Chronic sinusitis Modified On:11/26/2023 Status:confirmed L91.8 Skin tags, multiple acquired Modified On:05/23/2024 Status:confirmed D22.9 Nevus Modified On:05/23/2024 Status:confirmed N39.0 Acute UTI Modified On:05/23/2024 Status:confirmed K63.5 Hyperplastic polyp o f ascending colon Modified On:08/28/2024 Status:confirmed D36.9 Tubular adenoma Modified On:08/28/2024 Status:confirmed G45.3 Amaurosis fugax of l eft eye Modified On:02/09/2025 Status:confirmed G45.3 Amaurosis fugax, bot h eyes Modified On:02/09/2025 Status:confirmed * Medical History: * Surgical History: T otal Hysterecomy x2 Left Rotator Cuff Right Carpal Tunnel Gallbladder * Hospitalization/Major Diagno stic Procedure: s ee avove * Family History: F ather: , diagnosed with Unspecified essential hypertension, Other malignant neoplasm of unspecified site, Unspecified heart disease. M other: alive. S on(s): alive. 1 son(s) . . dad- Skin Cancer mom-thyroid. * Social History: T obacco Use: T obacco Use/Smoking P atient is a f ormer smoker W jazlyn did you start smoking? 0 09/10/2005 W hen did you stop smoking? 0 09/10/2016 H ow long has it been since you last smoked??5-10 years * Medications: T akingAdvair HFA(Fluticasone-Salmeterol) 230-21 MCG/ACT Aerosol 2 puffs Inhalation Twice a day Albuterol Sulfate HFA 108 (90 Base) MCG/ACT Aerosol Solution INHALE 2 PUFFS EVERY 4 TO 6 HOURS NEEDED amLODIPine Besylate 10 MG Tablet 1 tablet Orally Once a day Aspirin 81(Aspirin) 81 MG Tablet Delayed Release 1 tablet Orally Once a day buPROPion HCl ER (XL) 300 MG Tablet Extended Release 24 Hour take 1 tablet by mouth every morning Citalopram Hydrobromide 40 MG Tablet 1 tablet Orally Once a day Famotidine 20 MG Tablet TAKE 1 TABLET TWICE DAILY Ferrous Sulfate 325 (65 Fe) MG Tablet 1 tablet Orally twice daily Furosemide 80 MG Tablet TAKE 1 TABLET EVERY MORNING Gvoke HypoPen HumuLIN R U-500 (CONCENTRATED)(Insulin Regular Human (Conc)) 500 UNIT/ML Solution VIA INSULIN PUMP Subcutaneous levETIRAcetam 500 MG Tablet take 1 tablet by mouth every 12 hours Orally every 12 hrs Levothyroxine Sodium 100 MCG Tablet TAKE 1 TABLET EVERY DAY LORazepam 1 MG Tablet 1 Oral BID , Notes to Pharmacist: F41.9Losartan Potassium 100 MG Tablet TAKE 1 TABLET EVERY DAY Orally Once a day metFORMIN HCl 500 MG Tablet 1 tablet with a meal Orally Once a day Omeprazole 40 MG Capsule Delayed Release TAKE 1 CAPSULE EVERY DAY Potassium Chloride ER 10 MEQ Capsule Extended Release TAKE 1 CAPSULE TWICE DAILY Pyridium(Phenazopyridine HCl) 200 MG Tablet 1 tablet after meals Orally Three times a day risperiDONE 2 MG Tablet TAKE 1 TABLET AT BEDTIME Simvastatin 20 MG Tablet TAKE 1 TABLET EVERY DAY Vitamin D (Ergocalciferol) 1.25 MG (15069 UT) Capsule take 1 capsule by mouth every week Medication List reviewed and reconciled with the patientTaking Advair HFA(Fluticasone-Salmeterol) 230-21 MCG/ACT Aerosol 2 puffs Inhalation Twice a day Taking Albuterol Sulfate HFA 108 (90 Base) MCG/ACT Aerosol Solution INHALE 2 PUFFS EVERY 4 TO 6 HOURS NEEDED Taking amLODIPine Besylate 10 MG Tablet 1 tablet Orally Once a day Taking Aspirin 81(Aspirin) 81 MG Tablet Delayed Release 1 tablet Orally Once a day Taking buPROPion HCl ER (XL) 300 MG Tablet Extended Release 24 Hour take 1 tablet by mouth every morning Taking Citalopram Hydrobromide 40 MG Tablet 1 tablet Orally Once a day Taking Famotidine 20 MG Tablet TAKE 1 TABLET TWICE DAILY Taking Ferrous Sulfate 325 (65 Fe) MG Tablet 1 tablet Orally twice daily Taking Furosemide 80 MG Tablet TAKE 1 TABLET EVERY MORNING Taking Gvoke HypoPen Taking HumuLIN R U-500 (CONCENTRATED)(Insulin Regular Human (Conc)) 500 UNIT/ML Solution VIA INSULIN PUMP Subcutaneous Taking levETIRAcetam 500 MG Tablet take 1 tablet by mouth every 12 hours Orally every 12 hrs Taking Levothyroxine Sodium 100 MCG Tablet TAKE 1 TABLET EVERY DAY Taking LORazepam 1 MG Tablet 1 Oral BID , Notes to Pharmacist: F41.9Taking Losartan Potassium 100 MG Tablet TAKE 1 TABLET EVERY DAY Orally Once a day Taking metFORMIN HCl 500 MG Tablet 1 tablet with a meal Orally Once a day Taking Omeprazole 40 MG Capsule Delayed Release TAKE 1 CAPSULE EVERY DAY Taking Potassium Chloride ER 10 MEQ Capsule Extended Release TAKE 1 CAPSULE TWICE DAILY Taking Pyridium(Phenazopyridine HCl) 200 MG Tablet 1 tablet after meals Orally Three times a day Taking risperiDONE 2 MG Tablet TAKE 1 TABLET AT BEDTIME Taking Simvastatin 20 MG Tablet TAKE 1 TABLET EVERY DAY Taking Vitamin D (Ergocalciferol) 1.25 MG (19265 UT) Capsule take 1 capsule by mouth every week Medication List reviewed and reconciled with the patient * Allergies: P enicillin: hivesopioids: throat swelling/vomitingDepakote: chest tightness/throat swellingTrileptal: chest tightness/throat swellingLaMICtal: rashMorphine and Related: vomitingno[Allergies Verified] Objective: * Vitals: W t:245.2lbs, Ht: 66 in, BP:140/72mm Hg, BMI:39.57Index, Ht-cm: 167.64 cm, Wt-k.22 kg. * Examination: G eneral Examination: GENERAL APPEARANCE: in no acute distress. EYES: EOMI. EARS: auditory canal clear, middle ear effusion noted.? NOSE: clear discharge, turbinates pale and swollen. ORAL CAVITY: mucosa moist. THROAT: no erythema, post-nasal drainage noted. NECK: neck supple, no thyromegaly. LYMPH NODES: n o cervical adenopathy. LUNGS: unlabored, clear to auscultation bilaterally. CARDIO: n o murmurs, regular rate and rhythm. ABDOMEN: bowel sounds present, no organomegaly . ? Assessment: * Assessment: 1. M orbid (severe) obesity due to excess calories - E66.01 (Primary) 2 . T ype 1 diabetes mellitus with proliferative diabetic retinopathy without macular edema, bilateral - E10.3593 3 . A maurosis fugax of left eye - G45.3 4 . A cute bronchitis, unspecified organism - J20.9 5 . A maurosis fugax, both eyes - G45.3 Plan: * Treatment: 2. A cute bronchitis, unspecified organism Start levoFLOXacin Tablet, 500 MG, 1 tablet, Orally, Once a day, 10 day(s), 10. Notes:Rest and drink more liquids, especially water. You may use a humidifier or vaporizer to help keep the drainage moist. Cifk-bry-yeufsja Nasal Saline may help the stuffy and runny nose. Use Ibuprofen and or Tylenol as needed for fever, chills, body aches or pain. Children 5 years old should not be given vtjp-wgf-eznvxyp cough and cold medications such as guaifenesin and dextromethorphan. If you're over age 5, you may try cosh-cjv-cklbkmf cold medications such as guaifenesin and dextromethorphan, or multi-symptom cold reliever such as Dayquil to help reduce the symptoms. Antibiotics have been prescribed. You should take these until completed and follow the directions. Antibiotics can sometimes cause upset stomach, and in rare cases, serious allergic reactions or serious gastrointestinal problems. If you start having severe abdominal pain, severe vomiting, or bloody diarrhea, you should be reevaluated by your physician or urgent care immediately. Follow up with your Primary Care Provider or return to clinic if symptoms do not improve within 3-5 days. If you develop severe symptoms such as shortness of breath, repeated vomiting, coughing up blood, or chest pain you should go to the emergency room or call 911 3. A maurosis fugax, both eyes L AB: CBC AUTO DIFF L AB: CRP L AB: SED RATE WESTERGREN I maging: MR BRAIN WO CONTRAST I maging: MR angio head wo con I maging: MR angio neck wo con P rocedure: CARDIO Echocardiogram P rocedure: Holter Monitor - 3 days up to 14 days Notes: started on lavix til work up can be compltede with karishma asa?? * Procedure Codes: * Preventive Medicine: Screenings/Counseling: B [place] ACTION PLAN Above Normal BMI Follow-up D ietary management education, guidance, and counseling * Follow Up: 3 -5 days if not improving * * Sign off status: Completed Visit Status: C HK (Check Out) true * Provider: Brice Cortez ([facility])MD Date: 02/09/2025 Generated for Svitlana sanches/Marissa/Beesmitting on: 0 02/16/2025 12:53 PM EDT History and Physical Notes * Examination Category Sub-Category Detail Notes Category Not es General Examination GENERAL APPEARANCE: in no acute di stress EYES: EOMI EARS: auditory canal clear , middle ear effusion noted NOSE: clear discharge, tur binates pale and swollen THROAT: no erythema, post-na ceferino drainage noted NECK: neck supple, no thyr omegaly CARDIO: no murmurs, regular rate and rhythm LUNGS: unlabored, clear to auscultation bilaterally ABDOMEN: bowel sounds present , no organomegaly LYMPH NODES: no cervical adenopat hy ORAL CAVITY: mucosa moist
--- OUTSIDE RECORDS SUMMARY | 2025-02-16 12:53 | XMS_ITS | Referral Summary ---
Author Organization [facility] Address [address] [place] [address] Care Team Providers Care Commercial Sales Manager Name Role Phone Unavailable Primary Care Provider Unavailabl e Allergies Active Allergy Reactions Criticality Noted Date Comments Codeine 05/07/2022 Divalproex 05/07/2022 Fenofibric Acid (Choline) 05/07/2022 Morphine 05/07/2022 Penicillins 05/07/2022 Medications Medication Sig Dispensed Refills Start Date End Date Status albuterol 90 mcg/actuation inhaler Act yadira aspirin 325 mg tablet Take 1 tablet every day by oral route for 30 days. 08/02/2020 Active buPROPion XL (Wellbutrin XL) 300 mg 24 hr tablet Take 1 tablet by mouth in the morning. Active citalopram (CeleXA) 20 mg tablet Take 1 tablet by mouth in the morning. Active furosemide (Lasix) 80 mg tablet Take 1 tablet by mouth in the morning. Active insulin regular (HumuLIN R U-500, Conc, Insulin) 500 unit/mL CONCENTRATED injection USE 450 UNITS ONCE A DAY PER INSULIN PUMP Active levETIRAcetam (Keppra) 500 mg tablet Take 1 tablet by mouth in the morning and at bedtime. Active levothyroxine (Synthroid, Levoxyl) 100 mcg tablet Take 1 tablet by mouth in the morning. Active LORazepam (Ativan) 1 mg tablet take 1 tablet by mouth three times a day if needed Active losartan (Cozaar) 50 mg tablet Take 1 tablet by mouth in the morning. Active meloxicam (Mobic) 15 mg tablet Take 1 tablet by mouth in the morning. Active metFORMIN (Glucophage) 500 mg tablet take 2 tablets by mouth twice a day with food Active omeprazole (PriLOSEC) [address] capsule Take 1 capsule by mouth in the morning. Active potassium chloride ER (Micro-K) 10 mEq ER capsule Take 1 capsule by mouth in the morning and at bedtime. Active promethazine (Phenergan) 25 mg tablet take 1 tablet by mouth every 4 to 6 hours if needed for nausea Active risperiDONE (RisperDAL) 2 mg tablet Take 1 tablet by mouth at bedtime. Active simvastatin (Zocor) 20 mg tablet Take 1 tablet by mouth in the morning. Active sucralfate (Carafate) 1 gram tablet Take 1 tablet by mouth in the morning, at noon, in the evening, and at bedtime. Active Active Problems Problem Noted Date Diagnosed Date Pain in right knee 08/02/2020 Pain in joint of right shoulder 08/02/2020 Pain in right arm 08/02/2020 Social History Tobacco Use Types Packs/Day Years Used Date Smoking Tobacco: Never Assessed [place] Safety & Environment Answer Date Rec orded Fear of Current or Ex-Partner Not on file Emotionally Abused Not on file 11/01/2023 Physically Abused Not on file 11/01/2023 Sexually Abused Not on file 11/01/2023 Physically or Sexually Abused Not on file Sex and Gender Information Value Date Recorded Sex Assigned at Not on file Gender Identity Not on file Sexual Orientation Not on file Last Filed Vital Signs Vital Sign Reading Time Taken Comments Blood Pressure - - Pulse - - Temperature - - Respiratory Rate - - Oxygen Saturation - - Inhaled Oxygen Concentration - - Weight 90.7 kg (200 lb) 08/02/2020 5:07 PM EST Height 167.6 cm (5' 6 ) 06/13/2021 9:18 AM EDT Body Mass Index 32.28 08/02/2020 5:06 PM EST Plan of Treatment Not on file
--- OUTSIDE RECORDS SUMMARY | 2025-02-16 12:53 | XMS_ITS | Clinical Summary ---
Author Organization [facility] Address [address] [place] [address] Care Team Providers Care Lithographic Press Feeder Name Role Phone Unavailable Primary Care Provider [...] Years Used Date Smoking Tobacco: Never Assessed [place] Safety & Environment Answer Date Rec orded [...] 08/02/2020 5:06 PM EST Plan of Treatment Health Maintenance Due Date Last Done Comments CT Colonography 1978 Diabetes: Hemoglobin A1C 1978 FIT-DNA 1978 FIT 1978 FOBT 1978 Medicare Annual Wellness (AWV) 1978 Sigmoidoscopy 1978 Diabetes: Retinopathy Screening 1988 Depression Screening 1990 Diabetes: Urine Protein Screening 1997 Hepatitis B Vaccines (1 of 3 - 19+ 3-dose series) 1997 Pap Smear 1999 Adult Tetanus 2000 Cervical Cancer Screening 2008 HPV/Cotest 2008 Mammogram 2018 Influenza Vaccine (Season Ended) 2025 07/13/20 20 Zoster Vaccines (1 of 2) 2028 Colonoscopy 06/08/2031 06/08/2021 Colorectal Cancer Screening 06/08/2031 HIB Vaccines Aged Out No longer eligi ble based on patient's age to complete this topic HPV Vaccines Aged Out No longer eligi ble based on patient's age to complete this topic IPV Vaccines Aged Out No longer eligi ble based on patient's age to complete this topic Meningococcal B Vaccine Aged Out No l onger eligible based on patient's age to complete this topic Meningococcal Vaccine Aged Out No kirti pablito eligible based on patient's age to complete this topic Pneumococcal Vaccine: Pediat rics (0 to 5 Years) and At-Risk Patients (6 to 64 Years) Aged Out No longer eligi ble based on patient's age to complete this topic Rotavirus Vaccines Aged Out No longer eligible based on patient's age to complete this topic
--- OUTSIDE RECORDS SUMMARY | 2025-02-16 12:54 | XMS_ITS | Encounter Summary ---
Author Organization [facility] Address [address] [place] [address] Care Team Providers Care Pipe Stem Sawyer Name Role Phone George Cortez MD Primary Care Provider [phone] Encounter Details Date Type Department Care Team (Late st Contact Info) Description 01/17/2024 Clinisync Result Encounter [facility] External Department Unsolicited Shara Healy MD [address] [facility] [address] [place] [address] Social History Tobacco Use Types Packs/Day Years Used Date Smoking Tobacco: Former Cigarettes 2016 Smokeless Tobacco: Never Alcohol Use Standard Drinks/Week Comments Not Currently 0 (1 standard drink = 0.6 oz pur e alcohol) Comments Unknown Sex and Gender Information Value Date Recorded Sex Assigned at Not on file Legal Sex Female 6:44 PM EDT Gender Identity Not on file Sexual Orientation Not on file documented as of this encounter Plan of Treatment Upcoming Encounters Date Type Department Care Team (Late st Contact Info) Description 05/05/2025 10:10 AM EDT Office Visit [facility] [address] [place] [address] Zay Montiel MD [address] [place] [address] documented as of this encounter Procedures Procedure Name Priority Date/Time Associated Diagnosis Comments CT SOFT TISSUE NECK W IV CONTRAST 01/17/2024 10:05 AM EDT documented in this encounter Results * CT soft tissue neck w IV contrast (01/17/2024 10:05 AM EDT) Anatomical Region Laterality Modality Head, Neck Computed Tomogra phy 01/17/2024 10:0 5 AM EDT Narrative 01/17/2024 10:07 AM EDT [address] [address] [address] Scan Report Signed Patient: SCAR JEFFREY MR#: [id number] : 1980 Acct:[id number] Age/Sex: 43 / F ADM Date: 01/17/24 Loc: LAB Attending Dr: Shara Healy M.D. Ordering Physician: Shara Healy M.D. Date of Service: 01/17/24 Procedure(s): CT soft tissue neck w con Accession Number(s): [id number] cc: George Cortez M.D. [place] [id number] Patient Name: SCAR JEFFREY MRN: [id number] date: 1980 Sex: F Assigned Patient Location: LAB Current Patient Location: LAB Accession/Order Number: [id number] Exam Date: 01/17/2024 09:25 Report Date: 01/17/2024 10:05 At the request of: SHARA HEALY Procedure: CT soft tissue neck w con CT soft tissue neck w con, 01/17/2024 9:25 AM EDT INDICATION: Lymphadenopathy of left cervical region R59.0 COMPARISON: Ultrasound of thyroid dated 11/29/2023 TECHNIQUE: CT imaging of the neck were acquired with contrast. Supplemental 2D reformatted images were generated and reviewed as needed. Dose reduction techniques were achieved by using automated exposure control and/or adjustment of mA and/or kV according to patient size and/or use of iterative reconstruction technique. FINDINGS: No abnormality of the base of skull is noted. The nasopharynx, oropharynx, hypopharynx and oral cavity are unremarkable. The parotids, submandibular glands are unremarkable. The larynx is unremarkable. No abnormality of paraglottic fat is noted. There is no lymph node enlargement by size criteria. No retropharyngeal lymph node is noted. Small stable cyst within the right thyroid. Otherwise, the thyroid gland is homogeneous. The visualized portions of lungs are unremarkable. There is no suspicious osteolytic or osteoblastic lesion. There are multilevel degenerative changes of cervical spine. CT/CT soft tissue neck w con IMPRESSION: No lymphadenopathy by size criteria is noted. Electronically authenticated by: EVERTON SALINAS Date: 01/17/2024 10:05 Dictated By: Everton Salinas M.D. Signed By: 01/17/24 1007 DD/ 1005 TD/TT: Checker Cashier: Procedure Note Radiology, Radiologist, MD - 01/17/2024 [place] [address] CT Scan Report Signed Patient: SCAR JEFFREY MMR#: [id number] : 1980Acct:[id number] Age/Sex: 43 / FADM Date: 01/17/24 Loc: LAB Attending Dr: Shara Healy M.D. Ordering Physician: Shara Healy M.D. Date of Service: 01/17/24 Procedure(s): CT soft tissue neck w con Accession Number(s): [id number] cc: George Cortez M.D. [facility] [place] [id number] Patient Name: SCAR JEFFREY MRN: [id number] date: 1980 Sex: F Assigned Patient Location: LAB Current Patient Location: LAB Accession/Order Number: [id number] Exam Date: 01/17/2024 09:25 Report Date: 01/17/2024 10:05 At the request of: SHARA HEALY Procedure: CT soft tissue neck w con CT soft tissue neck w con, 01/17/2024 9:25 AM EDT INDICATION: Lymphadenopathy of left cervical region R59.0 COMPARISON: Ultrasound of thyroid dated 11/29/2023 TECHNIQUE: CT imaging of the neck were acquired with contrast.Supplemental 2D reformatted images were generated and reviewed as needed. Dose reduction techniques were achieved by using automated exposurecontrol and/or adjustment of mA and/or kV according to patient size and/or use of iterative reconstruction technique. FINDINGS: No abnormality of the base of skull is noted. The nasopharynx, oropharynx, hypopharynx and oral cavity are unremarkable. The parotids, submandibular glands are unremarkable. The larynx is unremarkable. No abnormality of paraglottic fat is noted. There is no lymph node enlargement by size criteria. No retropharyngeallymph node is noted. Small stable cyst within the right thyroid. Otherwise, the thyroid glandis homogeneous. The visualized portions of lungs are unremarkable. There is no suspicious osteolytic or osteoblastic lesion. There aremultilevel degenerative changes of cervical spine. CT/CT soft tissue neck w con IMPRESSION: No lymphadenopathy by size criteria is noted. Electronically authenticated by: EVERTON SALINAS Date: 01/17/2024 10:05 Dictated By: Everton Salinas M.D. Signed By:01/17/24 1007 DD/ 1005 TD/TT: Checker Cashier: Shara Healy MD IMG CT PROCEDURES Final Resul t documented in this encounter Visit Diagnoses Not on filedocumented in this encounter Care Teams Pipe Stem Sawyer Relationship Specialty Start Date End Date George Cortez MD PCP - General Family Medicine 12/18/23 documented as of this encounter
--- OUTSIDE RECORDS SUMMARY | 2025-02-16 12:54 | XMS_ITS | Clinical Summary ---
Author Organization [facility] Address [id number] [address] [place] [address] Care Team Providers Care Glass Robot Operator Name Role Phone George Cortez MD Primary Care Provider [phone] Medications lisinopril-hydr oCHLOROthiazide (PRINZIDE,ZESTO RETIC) 20-25 mg per tablet Take 1 tablet by mouth 2 (two) times a day. Active sulfamethoxazol e-trimethoprim (BACTRIM DS) 800-160 mg per tablet Take 1 tablet by mouth 2 (two) times a day. 0 03/26/2019 Active LORazepam (ATIVAN) 1 mg tablet Take 1 mg by mouth 3 (three) times a day as needed. 0 03/26/2019 Active gabapentin (NEURONTIN) 600 mg tablet 0 04/07/2019 Active terbinafine (LamISIL) 250 mg tablet Take 250 mg by mouth daily. 0 02/27/2019 Active metFORMIN (GLUCOPHAGE) 500 mg tablet Take 1,000 mg by mouth 2 (two) times a day with meals. 0 04/08/2019 Active losartan (COZAAR) 50 mg tablet Take 50 mg by mouth daily. 0 04/08/2019 Active risperiDONE (RisperDAL) 2 mg tablet Take 2 mg by mouth nightly. 0 02/04/2019 Active FREESTYLE TEST strip 0 03/18/2019 Active OMNIPOD INSULIN REFILL cartridge 03/26/2019 Active famotidine (PEPCID) 20 mg tablet 0 04/05/2019 Active NOVOLOG U-100 INSULIN ASPART 100 unit/mL injection 0 03/24/2019 Active furosemide (LASIX) 80 mg tablet Take 80 mg by mouth daily. 0 03/17/2019 Active buPROPion XL (WELLBUTRIN XL) 300 mg 24 hr tablet 0 04/05/2019 Active potassium chloride (MICRO-K) 10 MEQ CR capsule Take 10 mEq by mouth 2 (two) times a day. 0 02/04/2019 Active omeprazole (PriLOSEC) 40 mg capsule 0 04/07/2019 Active ciprofloxacin HCl (CIPRO) 500 mg tablet Take 500 mg by mouth 2 (two) times a day. 0 03/26/2019 Active citalopram (CeleXA) 20 mg tablet 0 03/06/2019 Active VITAMIN D2 50,000 unit capsule 1 03/23/2019 Active levothyroxine (SYNTHROID, LEVOTHROID) 100 MCG tablet Take 100 mcg by mouth daily. 0 07/17/2019 Active levETIRAcetam (KEPPRA) 500 mg tablet Take 500 mg by mouth 2 (two) times a day. 0 07/17/2019 Active HUMULIN R U-500, CONC, INSULIN 500 unit/mL injection USE 450 UNITS PER INSULIN PUMP ONCE A DAY 0 07/16/2019 Active Active Problems No known active problems Family History Medical History Relation Name Comments Skin cancer Father Lung cancer Maternal Grandfather Heart disease Paternal Grandfather Stomach cancer Paternal Grandmother Relation Name Status Comments Father Alive Maternal Grandfather Mother Alive Paternal Grandfather Paternal Grandmother Social History Tobacco Use Types Packs/Day Years Used Date Smoking Tobacco: Former Cigarettes 2 15.2 2 004 - 12/09/2018 Smokeless Tobacco: Never Alcohol Use Standard Drinks/Week Comments Not Currently 0 (1 standard drink = 0.6 oz pur e alcohol) AUDIT-C Answer Date Recorded Frequency of Alcohol Consumption Never 04/18/2019 Average Number of Drinks Not on file 019 Frequency of Binge Drinking Not on file 05/2019 Childcare Answer Date Recorded Childcare Unknown 02/19/2019 Employment Answer Date Recorded Employment Unknown 02/19/2019 Purpose - Life Answer Date Recorded Purpose and direction in life Unknown Comments Unknown Sex and Gender Information Value Date Recorded Sex Assigned at Not on file Legal Sex Female 11:37 AM EDT Gender Identity Not on file Sexual Orientation Not on file Last Filed Vital Signs Vital Sign Reading Time Taken Comments Blood Pressure 118/68 07/23/2019 9:54 AM EST Pulse - - Temperature - - Respiratory Rate - - Oxygen Saturation - - Inhaled Oxygen Concentration - - Weight 95.3 kg (210 lb) 07/23/2019 9:54 AM EST Height 167.6 cm (5' 6 ) 07/23/2019 9:54 AM EST Body Mass Index 33.89 07/23/2019 9:54 AM EST Plan of Treatment Health Maintenance Due Date Last Done Comments Depression Screening 1990 Tobacco Screening 1990 Adult BMI Screening 1996 DTaP,Tdap and Td Vaccines (1 - Tdap) 1997 Pap Smear 1999 Influenza Vaccine 05/11/2025 Medical Devices Not on file Insurance MEDICARE MEDICAID [place] Care Teams Glass Robot Operator Relationship Specialty Start Date End Date George Cortez MD PCP - General Family Medicine 04/09/19
--- OUTSIDE RECORDS SUMMARY | 2025-02-16 12:54 | XMS_ITS | Encounter Summary ---
Author Organization [facility] Address [address] [place] [address] Care Team Providers Care Buggy Ladle Tender Name Role Phone George Cortez MD Primary Care Provider [phone] Encounter Details Date Type Department Care Team (Late st Contact Info) Description 01/17/2024 Abstract [facility] [address] [place] [address] Jennifer Zheng MA Social History Tobacco Use Types Packs/Day Years [...] 05/05/2025 10:10 AM EDT Office Visit [facility] [address] [place] [address] Zay Montiel MD [address] [place] [address] documented as of this encounter Visit Diagnoses Not on filedocumented in this encounter Care Teams Buggy Ladle Tender Relationship Specialty Start Date End Date George Cortez MD PCP - General Family Medicine 12/18/23 documented as of this encounter
--- OUTSIDE RECORDS SUMMARY | 2025-02-16 12:54 | XMS_ITS | Patient Health Record ---
Author Organization [facility] in [place] Address [address] [place] [address] Care Team Providers Care Commercial Loan Analyst Name Role Phone DiegoJoe Primary Care Provider Mer Agudelo Unavailable [phone] Allergies Allergen (clinical drug ingredient) Drug/Non Drug Allergy documented on EMR Reaction Allergy Type Onset Date Status opioids (uncoded) throat swelling/vomiti ng Allergy Active valproate Depakote chest tightness/throa t swelling Drug Allergy Active lamotrigine LaMICtal rash Drug Allergy Activ e oxcarbazepine Trileptal chest tightness/throa t swelling Drug Allergy Active Morphine and Related vomiting Drug Allergy Active Penicillin hives Drug Allergy Active Results Component Value Reference Range Notes BNP Reviewed date:08/26/2024 12:44:27 PM Interpretation: Performing Lab: Notes/Report: [facility] , NT Pro B Type Natriuretic Pept 7.0 <=450.0 pg/mL Performing Lab: see note ML - [facility] US soft tissue head and neck Reviewed date:09/08/2024 08:32:33 PM Interpretation: Performing Lab: Notes/Report: Source Facility: [facility] [place] [address] [place] [address] Ultrasound Report Signed Patient: SCAR JEFFREY MR#: [id number] : 1980 Acct:[id number] Age/Sex: 43 / F ADM Date: 09/05/24 Loc: US Attending Dr: Lorenzo Carlson M.D. Ordering Physician: Lorenzo Carlson M.D. Date of Service: 09/05/24 Procedure(s): US soft tissue head and neck Accession Number(s): [id number] cc: Lorenzo Carlson M.D. [place] [id number] Patient Name: SCAR JEFFREY MRN: [facility]:[id number] date: 1980 Sex: F Assigned Patient Location: US Current Patient Location: Accession/Order Number: [id number] Exam Date: 09/05/2024 10:33 Report Date: 09/08/2024 12:45 At the request of: LORENZO CARLSON Procedure: US soft tissue head and neck EXAMINATION: US soft tissue head and neck HISTORY: R22.1 LOCALIZED SWELLING COMPARISON: No relevant comparison available. FINDINGS: Several lymph nodes within left neck in area of swelling with each maintaining a normal-appearing fatty hilum and thin hypoechoic cortex; largest is 9 x 9 x 15 mm. No significant hypervascularity, mass, or fluid collection. US/US soft tissue head and neck IMPRESSION: 1. Several lymph nodes within left neck area of swelling; no overtly suspicious findings. Electronically authenticated by: ORAL NARAYANAN Date: 09/08/2024 12:45 Dictated By: Oral Narayanan M.D. Signed By: 09/08/24 1247 DD/ 1245 TD/TT: Electronics Processor: [place] [address] Ultrasound Report Signed Patient: SCAR JEFFREY MR#: [id number] : 1980 Acct:[id number] Age/Sex: 43 / F ADM Date: 09/05/24 Loc: US Attending Dr: Gilberto Carlson M.D. Ordering Physician: Lorenzo Carlson M.D. Date of Service: 09/05/24 Procedure(s): US sof t tissue head and neck Accession Number(s): [id number] cc: Lorenzo Carlson M.D. [address] [address] Patient Name: SCAR JEFFREY MRN: [id number] date: 1980 Sex: F Assigned Patient Location: US Current Patient Location: Accession/Order Numb er: [id number] Exam Date: 10:33 Report Date: 09/08/2024 12:45 At the request of: LORENZO CARLSON Procedure: US soft tissue head and neck EXAMINATION: US soft tissue head and neck HISTORY: R22.1 LOCALIZED SWELLING COMPARISON: No relev ant comparison available. FINDINGS: Several lymph nodes within left neck in area of swelling with each maintaining a normal-appearing fatty hilum and thin hypoechoic cortex; largest is 9 x 9 x 15 mm. No significan t hypervascularity, mass, or fluid collection. US/US soft tissue head and neck IMPRESSION: 1. Several lymph nod es within left neck area of swelling; no overtly suspicious findings. Electronically authenticated by: ORAL NARAYANAN Date: 09/08/2024 12:45 Dictated By: Oral Narayanan M.D. Signed By: 09/08/24 1247 DD/ 1245 TD/TT: Electronics Processor: US THYROID Reviewed date:06/10/2024 07:19:56 PM Interpretation: Performing Lab: Notes/Report: Source Facility: [place] [address] Ultrasound Report Signed Patient: SCAR JEFFREY MR#: [id number] : 1980 Acct:[id number] Age/Sex: 43 / F ADM Date: 06/10/24 Loc: US Attending Dr: Lorenzo Carlson M.D. Ordering Physician: Lorenzo Carlson M.D. Date of Service: 06/10/24 Procedure(s): US thyroid Accession Number(s): [id number] cc: Lorenzo Carlson M.D. [place] [address] Patient Name: SCAR JEFFREY MRN: [id number] date: 1980 Sex: F Assigned Patient Location: US Current Patient Location: US Accession/Order Number: [id number] Exam Date: 06/10/2024 10:00 Report Date: 06/10/2024 13:48 At the request of: LORENZO CARLSON Procedure: US thyroid EXAMINATION: US thyroid HISTORY: Neck Mass R22.1 COMPARISON: 11/29/2023 TECHNIQUE: Sonographic images of the thyroid gland were obtained. FINDINGS: The right thyroid lobe measures 4.7 x 1.3 x 1.3 cm. Single stable 4 mm TR 4 nodule The thyroid isthmus measures 2.7 mm. No focal nodule The left thyroid lobe is normal in size, contour and echotexture measuring 3.9 x 1.6 x 1.7 cm In the region of patient's palpable mass/pain in a normal size normal morphology lymph node is observed measuring 1.6 x 0.7 x 0.7 cm. This has a thin hypoechogenic cortex measuring 2.6 mm with a hyperechogenic hypervascular hilum US/US thyroid IMPRESSION: Normal size normal morphology lymph node in the region of patient's palpable abnormality TI-RADS: The [employer] TI-RADS committee's white paper recommendations for thyroid lesions classified as TR4 (moderately suspicious) are listed below: > 1.0 cm. Follow-up ultrasound in 1, 2, 3, and 5 years. > 1.5 cm. FNA. J. Am Jose Eduardo Radiol 2017;14:587-595. Electronically authenticated by: EDNA GOMEZ Date: 06/10/2024 13:48 Dictated By: Edna Gomez M.D. Signed By: 06/10/24 1351 DD/ 1348 TD/TT: Electronics Processor: [place] [address] Ultrasound Report Signed Patient: SCAR JEFFREY MR#: [id number] : 1980 Acct:[id number] Age/Sex: 43 / F ADM Date: 06/10/24 Loc: US Attending Dr: Gilberto Carlson M.D. Ordering Physician: Lorenzo Carlson M.D. Date of Service: 06/10/24 Procedure(s): US thyroid Accession Number(s): [id number] cc: Lorenzo Carlson M.D. [place] [address] Patient Name: SCAR JEFFREY MRN: [id number] date: 1980 Sex: F Assigned Patient Location: US Current Patient Location: US Accession/Order Numb er: [id number] Exam Date: 10:00 Report Date: 06/10/2024 13:48 At the request of: LORENZO CARLSON Procedure: US thyroid EXAMINATION: US thyroid HISTORY: Neck Mass R22.1 COMPARISON: 11/29/2023 TECHNIQUE: Sonograph ic images of the thyroid gland were obtained. FINDINGS: The right thyroid lo be measures 4.7 x 1.3 x 1.3 cm. Single stable 4 mm TR 4 nodule The thyroid isthmus measures 2.7 mm. No focal nodule The left thyroid lob e is normal in size, contour and echotexture measuring 3.9 x 1.6 x 1.7 cm In the region of patient's palpable mass/pain in a normal size normal morphology lymph nod e is observed measuring 1.6 x 0.7 x 0.7 cm. This has a thin hypoechogenic cortex measuring 2.6 mm with a hyperechogenic hypervascular hilum US/US thyroid IMPRESSION: Normal size normal morphology lymph node in the region of patient's palpable abnormality TI-RADS: The [place] [employer] TI-RADS committee's white paper recommendations for thyroid lesions classified as TR4 (moderately suspicious) are listed below: > 1.0 cm. Follow-up ultrasound in 1, 2, 3, and 5 years. > 1.5 cm. FNA. J. Am Jose Eduardo Radiol 2017;14:587-595. Electronically authenticated by: EDNA GOMEZ Date: 06/10/2024 13:48 Dictated By: Deandre Gomez M.D. Signed By: 06/10/24 1352 DD/ 1348 TD/TT: Electronics Processor: CBC AUTO DIFF Reviewed date:08/26/2024 12:23:03 PM Interpretation: Performing Lab: Notes/Report: [facility] , White Blood Count 7.4 4.0-11.0 10 3/uL Red Blood Count 4.48 4.20-5.40 10 6/uL Hemoglobin 12.6 12.0-16.0 g/dL Hematocrit 36.8 36.0-48.0 % Mean Corpuscular Volume 82.1 81.0-99.0 fL Mean Corpuscular Hemoglobin 28.1 26.7-34.0 pg Mean Corpuscular HGB Conc 34.2 29.9-35.2 g/dL Red Cell Distribution Width 12.9 11.0-15.0 % Platelet Count 276 150-450 10 3/uL Mean Platelet Volume 10.5 9.5-13.5 fL Neutrophils Percent Auto 66.5 43.0-75.0 % Lymphocytes Percent Auto 25.0 20.5-60.0 % Monocytes Percent Auto 5.7 1.7-12.0 % Eosinophils Percent Auto 1.2 0.9-7.0 % Basophils Percent Auto 1.1 0.2-2.0 % Immature Granulocytes Pct Auto 0.5 0.0-0.5 % Neutrophils Absolute Auto 4.9 1.4-6.5 10 3/uL Lymphocytes Absolute Auto 1.9 1.2-3.8 10 3/uL Monocytes Absolute Auto 0.4 0.3-0.8 10 3/uL Eosinophils Absolute Auto 0.1 0.0-0.7 10 3/uL Basophils Absolute Auto 0.1 0.0-0.1 10 3/uL Immature Granulocytes Abs Auto 0.04 0.00-0.03 10 3/uL Performing Lab: see note ML - [facility] FREE T3 Reviewed date:08/26/2024 12:44:27 PM Interpretation: Performing Lab: Notes/Report: [facility] , Free T3 2.62 2.18-3.98 pg/mL Performing Lab: see note ML - [facility] LB GLYCOHEMOGLOBIN A1C Reviewed date:08/26/2024 12:36:47 PM Interpretation: Performing Lab: Notes/Report: [facility] , Glycohemoglobin A1C 8.3 4.5-6.2 % > 7.0 ACTION SUGGESTED ADA RECOMMENDED LIMIT 4.0 - 6.0 ADA THERAPEUTIC TARGET < 7.0 Estimated Average Glucose 192 Performing Lab: see note ML - [facility] LB IRON Reviewed date:08/26/2024 12:36:47 PM Interpretation: Performing Lab: Notes/Report: [facility] , Iron 54.0 50.0-170.0 ug/dL Performing Lab: see note ML - [facility] LB LIPID PROFILE Reviewed date:08/26/2024 12:44:27 PM Interpretation: Performing Lab: Notes/Report: [facility] , Triglycerides 197 <=150 mg/dL Cholesterol 165 <=200 mg/dL HDL Cholesterol 35 40-60 mg/dL <40 mg/dl - HIGH CARDIOVASCULAR RISK > or =60 mg/dl - LOW CARDIOVASCULAR RISK LDL Cholesterol Calculated 91.0 <100 mg/dl OPTIMAL 130-159 mg/dl BORDERLINE HIGH >190 mg/dl VERY HIGH 160-189 mg/dl HIGH 100-129 mg/dl NEAR OR ABOVE OPTIMAL VLDL CHOLESTEROL 39.4 Chol HDL Ratio 4.7 7.1 - 11.0 MODERATE RISK >11.0 HIGH RISK 4.4 - 7.1 AVERAGE RISK 3.3 - 4.4 LOW RISK Performing Lab: see note ML - [facility] LB PROF 14(COMP METB) Reviewed date:08/26/2024 12:44:27 PM Interpretation: Performing Lab: Notes/Report: [facility] , Sodium 137 136-145 mmol/L Potassium 4.5 3.5-5.1 mmol/L Chloride 99 98-107 mmol/L Carbon Dioxide 28.6 21.0-32.0 mmol/L Anion Gap 13.9 Glucose 234 74-106 mg/dL Blood Urea Nitrogen 13.0 7.0-18.0 mg/dL Creatinine 1.16 0.55-1.02 mg/dL Estimated GFR ( Kenna >60 >=60 mL/min/1.73m 2 Estimated GFR (Non- Sherri 51 >=60 mL/min/1.73m 2 BUN Creatinine Ratio 11.2 Calcium 9.2 8.5-10.1 mg/dL Bilirubin Total 0.6 0.2-1.0 mg/dL Aspartate Amino Transferase 36 15-37 U/L Alanine Aminotransferase 53 14-59 U/L Alkaline Phosphatase 120 46-116 U/L Total Protein 7.3 6.4-8.2 g/dL Albumin Level 3.9 3.4-5.0 g/dL Globulin 3.4 Albumin Globulin Ratio 1.1 Performing Lab: see note ML - [facility] LB T4 Reviewed date:08/26/2024 12:44:27 PM Interpretation: Performing Lab: Notes/Report: [facility] , T4 Thyroxine 10.10 4.80-13.90 ug/dL Performing Lab: see note - [facility] LB TSH Reviewed date:08/26/2024 12:44:27 PM Interpretation: Performing Lab: Notes/Report: [facility] , Thyroid Stimulating Hormone 2.818 0.358-3.740 uIU/mL Performing Lab: see note - [facility] LB Troponin I High Sensitivity Reviewed date:08/26/2024 12:44:27 PM Interpretation: Performing Lab: Notes/Report: [facility] , Troponin I High Sensitivity 10.2 4.0-51.3 pg/mL NOTE: HIGH-SENSITIVITY TROPONIN ASSAY IS NOT INTENDED TO BE CUT-OFF POINTS HAVE BEEN ESTABLISHED BASED ON THE FOURTH REFERENCE LIMIT (URL) OF TROPONIN, DEFINED THE 99TH HAS BEEN CONFIRMED THE DECISION THRESHOLD FOR PR PERCENTILE OF cTnI DISTRIBUTION IN A REFERENCE POPULATION, WITH OTHER DIAGNOSTIC AND CLINICAL INFORMATION. UNIVERSAL DEFINITION OF MYOCARDIAL INFARCTION. THE UPPER USED IN ISOLATION BUT SHOULD BE INTERPRETED IN CONJUNCTION 99TH PERCENTILE = 51.4 PG/ML DIAGNOSIS. Performing Lab: see note - [facility] LB CREATININE Reviewed date:09/28/2024 02:34:45 PM Interpretation: Performing Lab: Notes/Report: [facility] , Creatinine 1.13 0.55-1.02 mg/dL Estimated GFR ( Kenna >60 >=60 mL/min/1.73m 2 Estimated GFR (Non- Sherri 52 >=60 mL/min/1.73m 2 Performing Lab: see note - [facility] LB CT soft tissue neck w con Reviewed date:09/29/2024 01:52:06 PM Interpretation: Performing Lab: Notes/Report: Source Facility: [facility] [place] [address] [place] [address] CT Scan Report Signed Patient: SCAR JEFFREY MR#: [id number] : 1980 Acct:[id number] Age/Sex: 44 / F ADM Date: 09/27/24 Loc: LAB Attending Dr: Lorenzo Carlson M.D. Ordering Physician: Lorenzo Carlson M.D. Date of Service: 09/27/24 Procedure(s): CT soft tissue neck w con Accession Number(s): [id number] cc: Lorenzo Carlson M.D. [address] [address] Patient Name: SCAR JEFFREY MRN: [facility]:[id number] date: 1980 Sex: F Assigned Patient Location: LAB Current Patient Location: Accession/Order Number: [id number] Exam Date: 09/27/2024 09:55 Report Date: 09/29/2024 08:05 At the request of: LORENZO CARLSON Procedure: CT soft tissue neck w con CT soft tissue neck w con, 09/27/2024 9:55 AM EST INDICATION: R59.9 Lymph nodes enlarged COMPARISON: Prior CT of the neck dated 01/17/2024 and ultrasound of thyroid dated 06/10/2024 and 09/05/2024 TECHNIQUE: CT imaging of the neck were [...] oropharynx, hypopharynx and oral cavity are unremarkable. No abnormality of parapharyngeal, retropharyngeal and general road foreman spaces is noted. The parotids, submandibular glands are unremarkable. The larynx is unremarkable. No abnormality of paraglottic fat is noted. There is no lymph node enlargement by size criteria. No retropharyngeal lymph node is noted. The thyroid gland is homogeneous. The visualized portions of lungs are unremarkable. There is no suspicious osteolytic or osteoblastic lesion. There are multilevel degenerative changes of cervical spine. CT/CT soft tissue neck w con IMPRESSION: No lymphadenopathy by size criteria in the current study is noted. Electronically authenticated by: GILBERTO SALINAS Date: 09/29/2024 08:05 Dictated By: Gilberto Salinas M.D. Signed By: 01/807 DD/ 4 TD/TT: Electronics Processor: The [address] [address] [address] Scan Report Signed Patient: SCAR JEFFREY MR#: [id number] : 1980 Acct:[id number] Age/Sex: 44 / F ADM Date: 09/27/24 Loc: LAB Attending Dr: Gilberto Carlson M.D. Ordering Physician: Lorenzo Carlson M.D. Date of Service: 09/27/24 Procedure(s): CT sof t tissue neck w con Accession Number(s): [id number] cc: Lorenzo Carlson M.D. [address] [address] Patient Name: SCAR JEFFREY MRN: [id number] date: 1980 Sex: F Assigned Patient Location: LAB Current Patient Location: Accession/Order Numb er: [id number] Exam Date: 09/27/2024 09:55 Report Date: 09/29/2024 08:05 At the request of: LORENZO CARLSON Procedure: CT soft tissue neck w con CT soft tissue neck w con, 09/27/2024 9:55 AM EST INDICATION: R59.9 Ly mph nodes enlarged COMPARISON: Prior CT of the neck dated 01/17/2024 and ultrasound of thyroid dated 06/10/2024 and 09/05/2024 TECHNIQUE: CT imagin g of the neck were acquired with contrast. Supplemental 2D reformatted images w ere generated and reviewed as needed. Dose reduction techniques were achieved by using automated exposure control and/or adjustment of mA and/or kV according to patient size and/or use of iterative reconstruction technique. FINDINGS: No abnormality of th e base of skull is noted. The nasopharynx, oropharynx, hypopharynx and oral cavity are unremarkable. No abnormality of parapharyngeal, retropharyngeal and general road foreman spaces is noted. The parotids, submandibular glands are unremarkable. The larynx is unremarkable. No abnormality of paraglottic fat is noted. There is no lymph no de enlargement by size criteria. No retropharyngeal lymph node is noted. The thyroid gland is homogeneous. The visualized porti ons of lungs are unremarkable. There is no suspicio us osteolytic or osteoblastic lesion. There are multilevel degenerative changes of cervical spine. CT/CT soft tissue neck w con IMPRESSION: No lymphadenopathy b y size criteria in the current study is noted. Electronically authenticated by: GILBERTO SALINAS Date: 09/29/2024 08:05 Dictated By: Gilberto Salinas M.D. Signed By: 09/29/24807 DD/ 4 TD/TT: Electronics Processor: PROF KARINA Mccarty ([facility]) Reviewed date:10/06/2024 08:25:36 PM Interpretation: Performing Lab: Notes/Report: [facility] , Sodium 137 136-145 mmol/L Potassium 4.2 3.5-5.1 mmol/L Chloride 100 98-107 mmol/L Carbon Dioxide 28.8 21.0-32.0 mmol/L Anion Gap 12.4 Glucose 132 74-106 mg/dL Blood Urea Nitrogen 13.0 7.0-18.0 mg/dL Creatinine 1.09 0.55-1.02 mg/dL Estimated GFR ( Kenna >60 >=60 mL/min/1.73m 2 Estimated GFR (Non- Sherri 54 >=60 mL/min/1.73m 2 BUN Creatinine Ratio 11.9 Calcium 9.3 8.5-10.1 mg/dL Performing Lab: see note ML - [facility] VITAMIN D 25 [place] Reviewed date:08/26/2024 12:54:48 PM Interpretation: Performing Lab: Notes/Report: [facility] , Vitamin D 33.1 <20 ng/mL Vit D deficient >100 ng/mL Potential Toxicity 20-<30 ng/mL Vit D insufficient 30-100 ng/mL Vit D sufficient Performing Lab: see note ML - [facility] LB INSULIN Reviewed date:08/27/2024 04:03:13 PM Interpretation: Performing Lab: Notes/Report: [facility] , Insulin 263.0 2.6-24.9 uIU/mL Performed at: - [facility] [address] [id number] Quality Control Representative: Víctor Edwards PhD, Phone: [phone] Performing Lab: see note LC - [facility] LB Troponin I High Sensitivity Reviewed date:04/15/2024 03:18:59 PM Interpretation: Performing Lab: Notes/Report: [facility] , Troponin I High Sensitivity 5.7 4.0-51.3 pg/mL HAS BEEN CONFIRMED THE DECISION THRESHOLD FOR PR WITH OTHER DIAGNOSTIC AND CLINICAL INFORMATION. NOTE: HIGH-SENSITIVITY TROPONIN ASSAY IS NOT INTENDED TO BE 99TH PERCENTILE = 51.4 PG/ML PERCENTILE OF cTnI DISTRIBUTION IN A REFERENCE POPULATION, REFERENCE LIMIT (URL) OF TROPONIN, DEFINED THE 99TH UNIVERSAL DEFINITION OF MYOCARDIAL INFARCTION. THE UPPER USED IN ISOLATION BUT SHOULD BE INTERPRETED IN CONJUNCTION CUT-OFF POINTS HAVE BEEN ESTABLISHED BASED ON THE FOURTH DIAGNOSIS. Performing Lab: see note ML - [facility] LB TSH Reviewed date:04/15/2024 03:18:59 PM Interpretation: Performing Lab: Notes/Report: [facility] , Thyroid Stimulating Hormone 1.638 0.358-3.740 uIU/mL Performing Lab: see note ML - [facility] LB T4 Reviewed date:04/15/2024 03:18:59 PM Interpretation: Performing Lab: Notes/Report: [facility] , T4 Thyroxine 11.20 4.80-13.90 ug/dL Performing Lab: see note ML - [facility] LB PROF 14(COMP METB) Reviewed date:04/15/2024 03:18:59 PM Interpretation: Performing Lab: Notes/Report: [facility] , Sodium 140 136-145 mmol/L Potassium 3.8 3.5-5.1 mmol/L Chloride 102 98-107 mmol/L Carbon Dioxide 29.2 21.0-32.0 mmol/L Anion Gap 12.6 Glucose 55 74-106 mg/dL Blood Urea Nitrogen 11.0 7.0-18.0 mg/dL Creatinine 0.94 0.55-1.02 mg/dL Estimated GFR ( Kenna >60 >=60 Estimated GFR (Non- Sherri >60 >=60 BUN Creatinine Ratio 11.7 Calcium 9.3 8.5-10.1 mg/dL Bilirubin Total 0.6 0.2-1.0 mg/dL Aspartate Amino Transferase 30 15-37 U/L Alanine Aminotransferase 50 14-59 U/L Alkaline Phosphatase 118 46-116 U/L Total Protein 7.3 6.4-8.2 g/dL Albumin Level 4.1 3.4-5.0 g/dL Globulin 3.2 Albumin Globulin Ratio 1.3 Performing Lab: see note ML - [facility] LB LIPID PROFILE Reviewed date:04/15/2024 03:18:59 PM Interpretation: Performing Lab: Notes/Report: [facility] , Triglycerides 173 <=150 mg/dL Cholesterol 148 <=200 mg/dL HDL Cholesterol 34 40-60 mg/dL > or =60 mg/dl - LOW CARDIOVASCULAR RISK <40 mg/dl - HIGH CARDIOVASCULAR RISK LDL Cholesterol Calculated 80.0 130-159 mg/dl BORDERLINE HIGH 100-129 mg/dl NEAR OR ABOVE OPTIMAL <100 mg/dl OPTIMAL >190 mg/dl VERY HIGH 160-189 mg/dl HIGH VLDL CHOLESTEROL 34.6 Chol HDL Ratio 4.4 7.1 - 11.0 MODERATE RISK 3.3 - 4.4 LOW RISK >11.0 HIGH RISK 4.4 - 7.1 AVERAGE RISK Performing Lab: see note ML - [facility] LB IRON Reviewed date:04/15/2024 03:18:59 PM Interpretation: Performing Lab: Notes/Report: [facility] , Iron 45.0 50.0-170.0 ug/dL Performing Lab: see note ML - [facility] LB GLYCOHEMOGLOBIN A1C Reviewed date:04/15/2024 03:18:59 PM Interpretation: Performing Lab: Notes/Report: [facility] , Glycohemoglobin A1C 7.4 4.5-6.2 % ADA THERAPEUTIC TARGET < 7.0 > 7.0 ACTION SUGGESTED ADA RECOMMENDED LIMIT 4.0 - 6.0 Estimated Average Glucose 166 Performing Lab: see note ML - [facility] LB FREE T3 Reviewed date:04/15/2024 03:18:59 PM Interpretation: Performing Lab: Notes/Report: [facility] , Free T3 2.83 2.18-3.98 pg/mL Performing Lab: see note ML - [facility] CBC AUTO DIFF Reviewed date:04/15/2024 03:18:59 PM Interpretation: Performing Lab: Notes/Report: [facility] , White Blood Count 6.6 4.0-11.0 10 3/uL Red Blood Count 4.43 4.20-5.40 10 6/uL Hemoglobin 12.3 12.0-16.0 g/dL Hematocrit 37.0 36.0-48.0 % Mean Corpuscular Volume 83.5 81.0-99.0 fL Mean Corpuscular Hemoglobin 27.8 26.7-34.0 pg Mean Corpuscular HGB Conc 33.2 29.9-35.2 g/dL Red Cell Distribution Width 12.6 11.0-15.0 % Platelet Count 274 150-450 10 3/uL Mean Platelet Volume 10.0 9.5-13.5 fL Neutrophils Percent Auto 56.8 43.0-75.0 % Lymphocytes Percent Auto 33.1 20.5-60.0 % Monocytes Percent Auto 7.0 1.7-12.0 % Eosinophils Percent Auto 1.5 0.9-7.0 % Basophils Percent Auto 1.1 0.2-2.0 % Immature Granulocytes Pct Auto 0.5 0.0-0.5 % Neutrophils Absolute Auto 3.8 1.4-6.5 10 3/uL Lymphocytes Absolute Auto 2.2 1.2-3.8 10 3/uL Monocytes Absolute Auto 0.5 0.3-0.8 10 3/uL Eosinophils Absolute Auto 0.1 0.0-0.7 10 3/uL Basophils Absolute Auto 0.1 0.0-0.1 10 3/uL Immature Granulocytes Abs Auto 0.03 0.00-0.03 10 3/uL Performing Lab: see note ML - [facility] BNP Reviewed date:04/15/2024 03:18:59 PM Interpretation: Performing Lab: Notes/Report: [facility] , NT Pro B Type Natriuretic Pept 8.0 <=450.0 pg/mL Performing Lab: see note ML - [facility] LB Occult Blood* Reviewed date:08/26/2024 04:04:23 PM Interpretation: Performing Lab: Notes/Report: [facility] , Occult Blood Positive Performing Lab: see note ML - [facility] LB Reason For Referral Reason also possible basal cell Diagnosis 1 Skin tags, multiple acquired (L91.8) Referral Organization [facility] Referring Provider First Name Joe Referring Provider Last Name Diego Referring Provider Speciality Family Med tree Referred Provider Kobe Ramesh Referred Provider Specialty General Surg kenyatta Referral Priority Routine Diagnosis 1 Occult blood positiv e stool (R19.5) Referral Organization [facility] Referring Provider First Name Joe Referring Provider Last Name Timpriyank Referring Provider Speciality [facility] tree Referred Provider Kobe Ramesh Referred Provider Specialty General Surg kenyatta Referral Priority Routine Diagnosis 1 Localized swelling, mass and lump, head (R22.0) Referral Organization [facility] Referring Provider First Name Joe Referring Provider Last Name Diego Referring Provider Speciality [facility] tree Referred Provider Shara Healy Referred Provider Specialty Otolaryngolo gy Referral Priority Routine Medications Medication SIG (Take, Route, Frequency, Duration) Notes Start Date End Date Status levoFLOXacin 500 MG 1 tablet Orally Once a day for 10 day(s) 02/09/2025 Active Levothyroxine Sodium 100 MCG TAKE 1 TABLET EVERY DAY for 90 days Active amLODIPine Besylate 10 MG 1 tablet Orall y Once a day for 90 days 04/18/2024 Active LORazepam 1 MG 1 Oral BID for 30 days F41.9 02/26/2023 Active Aspirin 81 81 MG 1 tablet Orally Once a day Active Losartan Potassium 100 MG TAKE 1 TABLET EVERY DAY Orally Once a day for 90 days Active buPROPion HCl ER (XL) 300 MG take 1 tablet by mouth every morning for 30 Active metFORMIN HCl 500 MG 1 tablet with a trini l Orally Once a day Active Citalopram Hydrobromide 40 MG 1 tablet Orally Once a day for 90 days Active Omeprazole 40 MG TAKE 1 CAPSULE EVERY DAY for 90 Active Famotidine 20 MG TAKE 1 TABLET TWICE DAILY for 90 Active Potassium Chloride ER 10 MEQ TAKE 1 CAPSULE TWICE DAILY for 90 Active Ferrous Sulfate 325 (65 Fe) MG 1 tablet Orally twice daily for 30 days 04/16/2024 Active Pyridium 200 MG 1 tablet after meals Orally Three times a day for 2 days 05/23/2024 Active Furosemide 80 MG TAKE 1 TABLET EVERY MORNING for 90 Active risperiDONE 2 MG TAKE 1 TABLET AT BED TIME for 90 Active Plavix 75 MG 1 tablet Orally Once a day for 30 days 02/09/2025 Active Gvoke HypoPen Active Simvastatin 20 MG TAKE 1 TABLET EVERY DAY for 90 Active HumuLIN R U-500 (CONCENTRATED) 500 UNIT/ML VIA INSULIN PUMP Subcutaneous for 22 days Active Vitamin D (Ergocalciferol) 1.25 MG (44843 UT) take 1 capsule by mouth every week for 84 Active Advair HFA 230-21 MCG/ACT 2 puffs Inhala tion Twice a day 08/20/2024 Active levETIRAcetam 500 MG take 1 tablet by [facility] every 12 hours Orally every 12 hrs for 30 days Active Albuterol Sulfate HFA 108 (90 Base) MCG/ACT INHALE 2 PUFFS EVERY 4 TO 6 HOURS NEEDED for 50 Active Immunizations Vaccine Route Administration Date Status Comme nts Tdap (Boostrix) Unknown 05/10/2023 Administered Social History Tobacco Use: Social History Observation Description Date Details (start date - stop date) Former Smoker 09/10/2005 - 09/10/2016 Tobacco Use/Smoking Question Answer Notes Patient is a former smoker When did you start smoking? 09/10/2005 When did you stop smoking? 09/10/2016 How long has it been since you last smoked? 5-10 years Alcohol Screen (Audit-C) Question Answer Notes Did you have a drink containing alcohol in the p ast year? No Points 0 Interpretation Negative AUDIT-C (Standard) Question Answer Notes Did you have a drink containing alcohol in the p ast year? No Points 0 Interpretation Negative Problems Problem Type SNOMED Code ICD Code Onset Dates Problem Status W/U Status Risk Notes Problem Gastro-esophageal reflux disease without esophagitis (277352960) Gastro-esophageal reflux disease without esophagitis (K21.9) Active confirmed Problem 699246773 Type 1 diabetes mellitus with diabetic polyneuropathy (E10.42) Active confirmed Problem 817218458 Morbid (severe) obesity due to excess calories (E66.01) Active confirmed Problem Overweight (515263050) Overweight (E66.3) Active confirmed Problem Essential tremor (504127009) Essential tremor (G25.0) Active confirmed Problem 447713400 Age-related nuclear cataract, bilateral (H25.13) Active confirmed Problem Nuclear cataract (78024019) Infantile and juvenile nuclear cataract, unspecified eye (H26.039) Active confirmed Problem 857827616766317 Myopia, bilatera l (H52.13) Active confirmed Problem Astigmatism (07972543) Unspecified astigmatism, bilateral (H52.203) Active confirmed Problem Chronic laryngitis (71037792) Chronic laryngitis (J37.0) Active confirmed Problem 72070615 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 Problem Arthralgia of the upper arm (950482840) Pain in right elbow (M25.521) Active confirmed Problem 36681303 Radiculopathy, cervical region (M54.12) Active confirmed Problem Swelling of head (694997759) Localized swelling, mass and lump, head (R22.0) Active confirmed Problem Closed fracture of upper end of tibia (60115646) Nondisplaced bicondylar fracture of right tibia, initial encounter for closed fracture (S82.144A) Active confirmed Problem Long-term current use of insulin (222090945) penitentiary (current) use of insulin (Z79.4) Active confirmed Problem Fatigue (08653022) Fatigue (R53.83) Active conf irmed Problem Onychomycosis (366273810) Onychomycosis (B35.1) Active confirmed Problem Hypertension (27089838) Hypertension (I10) Active confirmed Problem Carpal tunnel syndrome (03249407) Carpal tunnel syndrome, bilateral (G56.01) Active confirmed Problem Cigarette smoker (68488200) Cigarette smoker (F17.210) Active confirmed Problem Gastroesophageal reflux disease (436989103) GERD (gastroesophageal reflux disease) (K21.9) Active confirmed Problem Seizure (11395570) Seizures (R56.9) Active conf irmed Problem Edema (62321131) Edema (R60.9) Active confirmed Problem Sleep apnea (56612268) Sleep apnea (G47.30) Active confirmed Problem Insomnia (258079268) Insomnia (G47.00) Active confirmed Problem Acid reflux (580523017) Acid reflux (K21.9) Active confirmed Problem Amaurosis fugax of left eye (65050660440055036) Amaurosis fugax of left eye (G45.3) Active confirmed Problem Migraine (31938795) Migraine (G43.909) Active c onfirmed Problem Degeneration of cervical intervertebral disc (35521105) Degenerative disc disease, cervical (M50.30) Active confirmed Problem Foot pain (75704169) Foot pain (M79.673) Active confirmed Problem Pain of right knee region (finding) (697575293876388) Knee pain, right (M25.561) Active confirmed Problem Chronic sinusitis (23171813) Chronic sinusitis (J32.9) Active confirmed Problem Well adult (430766850) Well adult (Z00.00) Active confirmed Problem Family History of Cancer of Colon (Situation) (331510615) Family history of colon cancer (Z80.0) Active confirmed Problem Mass of neck (511402752) Neck mass (R22.1) Active confirmed Problem Tubular adenoma (574500270) Tubular adenoma (D36.9) Active confirmed Problem Diastasis recti (13946512) Diastasis recti (M62.08) Active confirmed Problem Multiple skin tags (568040662) Skin tags, multiple acquired (L91.8) Active confirmed Problem Nevus (8850268870) Nevus (D22.9) Active confirm ed Problem Viral gastroenteritis (530333783) Viral gastroenteritis (A08.4) Active confirmed Problem Hoarse (57261657) Hoarse (R49.0) Active confirm ed Problem Acute urinary tract infection (380339149) Acute UTI (N39.0) Active confirmed Problem Edema (374993916) Fluid retentio n in tissues (R60.9) Active confirmed Problem Mass of head (843276570) Mass of head (R22.0) Active confirmed Problem Lesion of vocal cord (876546490) Lesion of vocal cord (J38.3) Active confirmed Problem 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 (366713125) Diabetic neuropathy associated with type 1 diabetes mellitus (E10.40) Active confirmed Problem Acute embolism a nd thrombosis of superficial vein of left upper extremity (I82.612) Active confirmed Problem 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) (32166470052777589) Type 1 diabetes mellitus with mild nonproliferative diabetic retinopathy without macular edema, bilateral (E10.3293) Active confirmed Problem 01253986397308503 Type 1 diabete s mellitus with stable proliferative diabetic retinopathy, bilateral (E10.3553) Active confirmed Problem 98088304673695214 Type 1 diabete s mellitus with proliferative diabetic retinopathy without macular edema, bilateral (E10.3593) Active confirmed Problem Transient arterial retinal occlusion (18253847) Amaurosis fugax, 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) Active confirmed Problem Mixed anxiety and depressive disorder (811676218) Anxiety and depression (F41.8) Active confirmed Problem Benign neoplasm of colon (78005280) Hyperplastic polyp of ascending colon (K63.5) Active confirmed Problem 045823601 Abnormal finding s on diagnostic imaging of other specified body structures (R93.89) Active confirmed Problem COVID-19 (774066221) COVID-19 (U07.1) Active confirmed Problem Acute Laryngitis (9318471) Acute laryngitis, without mention of obstruction (J04.0) Active confirmed Vital Signs Heart Rate 68 /min 04/10/2024 Temperature 96.4 degrees Fahrenheit 04/10/2024 Respiratory Rate 16 /min 04/10/2024 Blood pressure diastolic 72 mm Hg 02/09/2025 Height 66 in 02/09/2025 Blood pressure systolic 140 mm Hg 02/09/2025 Weight 245.2 lbs 02/09/2025 BMI 39.57 kg/m2 02/09/2025 Procedures Procedure Date Ordered Date Performed Result Body Sit e CARDIO Echocardiogram 02/09/2025 N/A Holter Monitor - 3 days up to 14 days 02/09/2025 N/A Encounters Encounter Location Date Provider Diagnosis [facility] [address] [place] [place] [address] 10/14/[address] [facility] [address] [place] [address] 12/04/2024 Joe Carlson [facility] [address] [place] [address] 01/05/[address] [facility] [address] [place] [address] 01/26/[address] [facility] [address] [place] [address] 08/26/[address] [facility] [address] [place] [address] 08/26/2024 Joe Carlson Occult blood positiv e stool R19.[address] [facility] [address] [place] [address] 09/08/2024 Joe Carlson Lymph nodes enlarged R59.9 [facility] [address] [place] [address] 09/28/2024 Joe H[address] Dehydration E86.0 [facility] [address] [place] [address] 09/29/2024 Joe Hoy Localized swelling, mass and lump, head R22.0 [facility] [address] [place] [address] 10/10/[address] I[address] [facility] [address] [place] [address] 06/10/2024 Joe Hoy [facility] [address] [place] [address] 06/12/2024 Joe Hoy [facility] [address] [place] [address] 06/16/2024 Joe Hoy [facility] [address] [place] [address] 06/20/2024 Joe Hoy Hypertension I10 [facility] [address] [place] [address] 08/20/[address] I10 [facility] [address] [place] [address] 08/20/[address] [facility] [address] [place] [address] 04/15/2024 Joe Hoy [facility] [address] [place] [address] 04/18/[address]pertension I10 [facility] [address] [place] [address] 04/21/2024 Joe Hoy [facility] [address] [place] [address] 05/26/[address] [facility] [address] [place] [address] 06/02/[address] [facility] [address] [place] [address] 04/15/2024 Joe Hoy Hypertension I10 [facility] [address] [place] [address] 07/18/2024 Jeo Hoy Seizures R56.9 and T ype 1 diabetes mellitus with mild nonproliferative diabetic retinopathy without macular edema, bilateral E10.[address] [address] 05/23/2024 Joe Hoy Skin tags, multiple acquired L91.8 ; Nevus D22.9 and Acute UTI N39.[address] [address] 08/26/2024 Joe Hoy Morbid (severe) obes ity due to excess calories E66.01 ; 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, bilateral E10.3593 ; Localized swelling, mass and lump, head R22.0 ; Fatigue R53.83 and Hypertension I10 [address] [address] 02/09/2025 Joe Hoy Morbid (severe) obes ity due to excess calories E66.01 ; 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, bilateral E10.3593 ; Acute bronchitis, unspecified organism J20.9 ; Amaurosis fugax of left eye G45.3 and Amaurosis fugax, both eyes G45.3 [facility] [address] [place] [address] [place] [address] 04/10/2024 Mer Agudelo Type 1 diabetes mellitus with diabetic polyneuropathy E10.42 Assessments Encounter Date Diagnosis (ICD Code) Assessment Notes Treatment Notes Treatment Clinical Notes Section Notes 04/10/2024 Type 1 diabetes mellitus with diabetic polyneuropathy (ICD-10 - E10.42) The patient is a 43 year old type 1 diabetic who presents for routine foot check. She reports she does occasionally havepain in her feet that comes and goes, but nothing that lasts. She has symptoms that sound consistent with peripheral neuropathy but her protective sensation is intact to both feet. I encouraged her to wear supportive shoes and to never go barefoot, especially outside. She should check her feet twice daily to inspect for any skin changes. She was encouraged to try to keep her blood sugars under tight control to reduce risk to her feet. She has regular followup with her PCP, so I advised she may see us as needed for any concerns of skin changes, swelling, or pain. She is happy with the plan. 04/15/2024 Hypertension (ICD-10 - I10) 05/23/2024 Skin tags, multiple acquired (ICD-10 - L91.8) 05/23/2024 Nevus (ICD-10 - D22.9) 07/18/2024 Seizures (ICD-10 - R56.9) 07/18/2024 Type 1 diabetes mellitus with mild nonproliferative diabetic retinopathy without macular edema, bilateral (ICD-10 - E10.3293) 08/26/2024 Morbid (severe) obesity due to excess calories (ICD-10 - E66.01) 08/26/2024 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, bilateral (ICD-10 - E10.3593) 04/18/2024 Hypertension (ICD-10 - I10) 06/20/2024 Hypertension (ICD-10 - I10) 08/20/2024 Hypertension (ICD-10 - I10) 08/26/2024 Occult blood positive stool (ICD-10 - R19.5) 08/26/2024 Diarrhea (ICD-10 - R19.7) 09/08/2024 Lymph nodes enlarged (ICD-10 - R59.9) 09/28/2024 Dehydration (ICD-10 - E86.0) 09/29/2024 Localized swelling, mass and lump, head (ICD-10 - R22.0) 10/10/2024 Hypertension (ICD-10 - I10) 02/09/2025 Morbid (severe) obesity due to excess calories (ICD-10 - E66.01) 02/09/2025 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, bilateral (ICD-10 - E10.3593) 08/26/2024 Localized swelling, mass and lump, head (ICD-10 - R22.0) 05/23/2024 Acute UTI (ICD-10 - N39.0) 08/26/2024 Fatigue (ICD-10 - R53.83) 02/09/2025 Acute bronchitis, unspecified organism (ICD-10 - J20.9) Rest and drink more liquids, especially water. You may use a humidifier or vaporizer to help keep the drainage moist. Vqee-rnk-fcjyixg Nasal Saline may help the stuffy and runny nose. Use Ibuprofen and or Tylenol as needed for fever, chills, body aches or pain. Children 5 years old should not be given yxcg-mtw-mphnzuk cough and cold medications such as guaifenesin and dextromethorphan. If you're over age 5, you may try lreh-bkn-yrweauo cold medications such as guaifenesin and dextromethorphan, [...] til work up can be compltede with [facility] 08/26/2024 Hypertension (ICD-10 - I10) Plan Of Treatment Pending Test Test Name Order Date CMP (COMPLETE METABOLIC PANEL) 4 CMP (COMPLETE METABOLIC PANEL) 4 HEMOGLOBIN A1C (GLYCO) 04/15/2024 HEMOGLOBIN A1C (GLYCO) 08/26/2024 IRON, TOTAL 08/26/2024 IRON, TOTAL 04/15/2024 LIPID PANEL (CHOL/TRIG/HDL/LDL) 04/15/20 24 LIPID PANEL (CHOL/TRIG/HDL/LDL) 08/26/20 24 CBC WITH DIFF 08/26/2024 CBC WITH DIFF 04/15/2024 VITAMIN D, 25 LEVEL (TOTAL) 08/26/2024 XR Sinuses (4 views) * 11/26/2023 CT Facial Bones w/o contrast * 3 US Soft Tissue Neck/Head 11/26/2023 CARDIO Echocardiogram 02/09/2025 BMP w/GFR 09/28/2024 Insulin Level 08/26/2024 High Sensitivity Troponin 04/15/2024 High Sensitivity Troponin 08/26/2024 STOOL OCCULT BLOOD 08/26/2024 CBC AUTO DIFF 02/09/2025 CRP 02/09/2025 SED RATE WESTERGREN 02/09/2025 XR CSPINE MIN 4 VIEWS 12/28/2022 XR FOOT RT MIN 3 VIEWS 11/02/2023 THYROID PANEL (T4/TSH/FREE T3) 4 THYROID PANEL (T4/TSH/FREE T3) 4 Holter Monitor - 3 days up to 14 days MG MAMM DIAGNOSTIC 3D JOSELITO CAD 10/24/2023 MR BRAIN WO CONTRAST 02/09/2025 MR angio head wo con 02/09/2025 MR angio neck wo con 02/09/[address] w/contrast * 09/08/2024 Future Test Test Name Order Date BMP w/GFR 10/06/2024 Next Appt Details Provider Name:Joe Carlson, 10:45:00 AM, [address] [place], [address], Provider Name:Joe Carlson, 11:15:00 AM, [address] [place], [address], Insurance Providers Payer Name Payer Address Payer Phone Subscriber Number Group Number Insured Name Patient Relationship to Insured Coverage Start Date Coverage End Date [employer] ADV PLAN [address] [address] [place] [address] [id number] Scar Su Self - patient is the insured 0 MEDICAID [place] 2ND INS [address] OFFICE OF [facility] [place] [id number] Scar Su Self - patient is the insured 3 Medical (General) History Medical History History ICD Code Anxiety and depression F41.8 Diabetic neuropathy associated with type 1 diabetes mellitus E10.40 Acid reflux K21.9 Hypertension I10 Insomnia G47.00 Fatigue R53.83 Overweight E66.3 Viral gastroenteritis A08.4 Migraine G43.909 Family history of colon cancer Z80.0 Essential tremor G25.0 COVID-19 U07.1 Nondisplaced bicondylar frac ture of right tibia, initial encounter for closed fracture S82.144A Pain in right elbow M25.521 Knee pain, right M25.561 GERD (gastroesophageal reflux disease) K 21.9 Fluid retention in tissues R60.9 Edema R60.9 Diastasis recti M62.08 Chronic laryngitis J37.0 Gastro-esophageal reflux disease without esophagitis K21.9 long term care social worker (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 30 Acute embolism and thrombosis of superfi cial vein of left upper extremity I82.612 Hoarse R49.0 Lesion of vocal cord J38.3 Localized swelling, mass and lump, head R22.0 Acute laryngitis, without mention of obs truction J04.0 Type 1 diabetes mellitus wit h mild nonproliferative diabetic retinopathy without macular edema, bilateral E10.3293 Unspecified astigmatism, bilateral H52.2 03 Infantile and juvenile nuclear cataract, unspecified eye H26.039 Carpal tunnel syndrome, bilateral G56.01 Cigarette smoker F17.210 Seizures R56.9 Surgical History Surgery Date(Month/Year) Left Rotator Cuff x2 Total Hysterecomy Right Carpal Tunnel Gallbladder Hospitalization History Reason Date(Month/Year) see anca
--- OUTSIDE RECORDS SUMMARY | 2025-02-16 12:54 | XMS_ITS | Clinical Summary ---
Author Organization [facility] Address [address] [place] [address] Care Team Providers Care Lead Installer Name Role Phone George Cortez MD Primary Care Provider [phone] Allergies Active Allergy Reactions Criticality Noted Date Comments Codeine 12/18/2023 Hydrocodone 12/18/2023 Throat swelling, vomiting Lamotrigine Rash Low 12/18/2023 Morphine GI intolerance 12/18/2023 vomiting Oxcarbazepine 12/18/2023 Other Reaction(s): tightness in chest Penicillin G Hives 12/18/2023 Penicillins 12/18/2023 Valproic Acid 12/18/2023 Other Reaction(s): Trouble Breathing Medications albuterol HFA (Ventolin HFA) 90 mcg/act inhaler Inhale 2 puffs every 6 (six) hours if needed Active citalopram (CeleXA) 20 MG tablet Take 40 mg by mouth 1 (one) time each day at the same time Active levothyroxine (Synthroid) 100 MCG tablet Take 100 mcg by mouth in the morning. Take before meals. Active losartan (Cozaar) 50 MG tablet Take 100 mg by mouth 1 (one) time each day at the same time Active potassium chloride CR (Klor-Con) 10 MEQ ER tablet 10 mEq in the morning and 10 mEq before bedtime. Active risperiDONE (RisperDAL) 2 MG tablet Take 4 mg by mouth Daily Active simvastatin (Zocor) 20 MG tablet Take 20 mg by mouth at bedtime Active Vitamin D, Ergocalciferol, 87164 units capsule Take 1 tablet by mouth 1 (one) time per week Active aspirin 81 MG EC tablet Take 81 mg by mouth Daily Active buPROPion XL (Wellbutrin XL) 300 MG 24 hr tablet Take 300 mg by mouth Daily Do not crush, chew, or split. Active famotidine (Pepcid) 20 MG tablet Take 20 mg by mouth Daily Active fluticasone-salme terol (Advair) 230-21 MCG/ACT inhaler Inhale 2 puffs in the morning and 2 puffs before bedtime. Rinse mouth with water after use to reduce aftertaste and incidence of candidiasis. Do not swallow.. Active furosemide (Lasix) 80 MG tablet Take 1 tablet by mouth Daily Active LORazepam (Ativan) 1 MG tablet Take 1 mg by mouth every 8 (eight) hours Active omeprazole (PriLOSEC) [address] capsule Take 40 mg by mouth in the morning. Take before meals. Do not crush or chew.. Active levETIRAcetam (Keppra) 500 MG tablet Take 500 mg by mouth in the morning and 500 mg before bedtime. Active Insulin Disposable Pump (Omnipod DASH Pods, Gen 4,) miscIndications:T ype 1 diabetes mellitus with other ophthalmic complication CHANGE POD EVERY 24 HOURS DIRECTED 90 each 3 06/10/20 24 Active glucose blood test strip use 1 TEST STRIP to TEST BLOOD SUGAR every 4 hours Active amLODIPine (Norvasc) 5 MG tablet Take 5 mg by mouth Daily Active metFORMIN (Glucophage) 1000 MG tabletIndications :Type 1 diabetes mellitus with hyperglycemia (HCC) (CMS/HCC) Take 1 tablet (1,000 mg) by mouth in the morning and 1 tablet (1,000 mg) in the evening. Take with meals. 180 tablet 1 10/30/19 25 025 Active Continuous Glucose Paver Operator (Dexcom G7 Paver Operator) deviceIndications :Type 1 diabetes mellitus with hyperglycemia (HCC) (CMS/HCC) 1 kit continuously 1 each 1 10/31/19 25 Active Continuous Glucose Sensor (Dexcom G7 Sensor) miscIndications:T ype 1 diabetes mellitus with hyperglycemia (HCC) (CMS/HCC) 1 kit Every 10 (ten) days 9 each 1 10/31/19 25 Active Insulin Disposable Pump (Omnipod 5 [id number] Intro Gen 5) kitIndications:Ty pe 1 diabetes mellitus with hyperglycemia (HCC) (CMS/HCC) USE DIRECTED 1 kit 3 11/14/19 25 Active insulin regular (HumuLIN R) 500 UNIT/ML CONCENTRATED injectionIndicati ons: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 USE 450 units TOTAL daily per insulin pump 20 mL 11 01/31/20 25 Active glucose blood (Contour Next Test) test stripIndications: 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 TEST BLOOD SUGAR SIX TIMES DAILY 550 strip 3 01/31/20 25 Active Insulin Disposable Pump (Omnipod 5 [id number] Pods Gen 5) miscIndications:T ype 1 diabetes mellitus with hyperglycemia (HCC) (CMS/[facility]) Inject 1 Bar under the skin every other day 45 each 1 01/31/20 25 025 Active glucose blood (Contour Next Test) test stripIndications: 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 TEST BLOOD SUGAR SIX TIMES DAILY 550 strip 3 10/29/19 25 025 Discontin ued(Reord er) insulin regular (HumuLIN R) 500 UNIT/ML CONCENTRATED injectionIndicati ons: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 USE 450 units TOTAL daily per insulin pump 20 mL 11 01/01/20 25 025 Discontin ued(Reord er) Insulin Disposable Pump (Omnipod 5 [id number] Pods Gen 5) miscIndications:T ype 1 diabetes mellitus with hyperglycemia (HCC) (CMS/HCC) CHANGE POD EVERY OTHER DAY FOR 45 each 3 01/13/20 25 025 Discontin ued(Reord er) glucose blood (Contour Next Test) test stripIndications: 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 TEST BLOOD SUGAR SIX TIMES DAILY 550 strip 3 01/21/20 25 025 Discontin ued(Reord er) Active Problems Problem Noted Date Diagnosed Date Abdominal bloating 01/17/2024 Anxiety 01/17/2024 Benign neoplasm of transverse colon 01/17/2024 Diastasis of rectus abdominis 01/17/2024 Disorder of intervertebral disc of cervical spin e 01/17/2024 Epidermoid cyst of face 01/17/2024 Epigastric pain 01/17/2024 Gastroesophageal reflux disease 01/17/2024 Family history of malignant neoplasm of colon Hypertension 01/17/2024 Irritable bowel syndrome 01/17/2024 correction current use of insulin 01/17/2024 Migraine headache 01/17/2024 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 01/17/2024 Nausea 01/17/2024 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 01/17/2024 Obesity with body mass index 30 or greater 01/16 Type 1 diabetes mellitus 01/17/2024 Seizure disorder 01/17/2024 LAD (lymphadenopathy), cervical 12/24/2023 Chronic hoarseness 12/18/2023 Laryngopharyngeal reflux 12/18/2023 Mass of head 12/18/2023 Sleep apnea 12/18/2023 Sinusitis, chronic 12/18/2023 Pain in joint of right shoulder 08/02/2020 Pain in right arm 08/02/2020 Pain in right knee 08/02/2020 Bipolar I disorder 08/20/2012 Disorder of nervous 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 08/19/2012 Dysthymia 08/19/2012 Epilepsy 08/19/2012 Insomnia 08/19/2012 Type 2 diabetes mellitus without complication Resolved Problems Problem Noted Date Diagnosed Date Resolved Date Chronic laryngitis 12/18/2023 Encounters Date Type Department Care Team Description 01/30/2025 10:20 AM EDT Office Visit [facility] [address] [place] [phone] Zay Monteil MD 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 (Primary Dx); Vitamin D deficiency; Encounter for dietary consultation; Insulin long-term use (CMS/[facility]); Microalbuminuria; Insulin pump in place; Encounter for fitting or adjustment of insulin pump; Primary hypertension (CMS/HCC); Type 1 diabetes mellitus with hyperglycemia (HCC) ([facility]/HCC) 01/30/2025 Bamboo flowsheet [facility] [address] [place] [phone] Zay Montiel MD 01/15/2025 Telephone [facility] [address] [place] [phone] Zay Montiel MD Med Refill 01/12/2025 Refill [facility] [address] [place] [address] Zay Montiel MD Type 1 diabetes mellitus with hyperglycemia (HCC) ([facility]) 01/12/2025 Refill [facility] [address] [place] [address] Zay Montiel MD 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; Type 1 diabetes mellitus with hyperglycemia (HCC) ([facility]) 01/12/2025 Refill [facility] [address] [place] [address] Helena Short LPN Type 1 diabetes mellitus with hyperglycemia (HCC) ([facility]) 12/30/2024 Refill [facility] [address] [place] [address] Zay Montiel MD 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 11/25/2024 9:20 AM EDT Office Visit [facility] [address] [place] [address] Kusum Castillo PA Inflamed seborrheic keratosis (Primary Dx) 11/25/2024 Bamboo flowsheet [facility] [address] [place] [address] Kusum Castillo PA 11/25/2024 Travel from Last 3 Months Family History Medical History Relation Name Comments Cancer Father Heart failure Father Hypertension Father Relation Name Status Comments Father Social History Tobacco Use Types Packs/Day Years Used Date Smoking Tobacco: Former Cigarettes 2 - 2016 Smokeless Tobacco: Never Tobacco Cessation:Counseling Given: Not Answered Alcohol Use Standard Drinks/Week Comments Not Currently 0 (1 standard drink = 0.6 oz pur e alcohol) Comments Unknown Sex and Gender Information Value Date Recorded Sex Assigned at Not on file Legal Sex Female 6:44 PM EDT Gender Identity Not on file Sexual Orientation Not on file Last Filed Vital Signs Vital Sign Reading Time Taken Comments Blood Pressure 140/62 01/30/2025 10:20 AM EDT Pulse 80 01/30/2025 10:20 AM EDT Temperature - - Respiratory Rate 18 01/30/2025 10:20 AM EDT Oxygen Saturation 96% 01/30/2025 10:20 AM EDT Inhaled Oxygen Concentration - - Weight 114 kg (251 lb) 01/30/2025 10:20 AM EDT Height 166.4 cm (5' 5.5 ) 01/30/2025 10:20 AM ED T Body Mass Index 41.13 01/30/2025 10:20 AM EDT Plan of Treatment Upcoming Encounters Date Type Department Care Team (Late st Contact Info) Description 05/05/2025 10:10 AM EDT Office Visit [facility] [address] [place] [phone] Zay Montiel MD [address] [place] [address] Procedures Procedure Name Priority Date/Time Associated Diagnosis Comments POCT GLYCOSYLATED HEMOGLOBIN (HGB A1C) Routine 01/30/2025 10:24 AM EDT 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 POCT GLUCOSE Routine 01/30/2025 10:24 AM EDT 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 CRYOTHERAPY SKIN LESION Routine 11/25/2024 9:29 AM EDT Inflamed seborrheic keratosis from Last 3 Months Results * POCT glycosylated hemoglobin (Hb A1C) docked device (01/30/2025 10:24 AM EDT) Hemoglobin A1C 8.3 Blood Venous blood specimen / Unknown 01/30/2025 10:24 AM EDT Zay Montiel MD POINT OF CARE TEST ENTER/EDIT ORDERABLES Final Result * POCT glucose manually resulted (01/30/2025 10:24 AM EDT) Glucose Blood, POC 325 mg/dL Blood Capillary blood specimen / Unknown 01/30/2025 10:24 AM EDT Zay Montiel MD POINT OF CARE TEST ENTER/EDIT ORDERABLES Final Result * Cryotherapy, skin lesion (11/25/2024 9:29 AM EDT) [facility] PROCEDURE ORDERABLES Dotty l Result from Last 3 Months Insurance [id number] [id number] [facility] MEDICARE ADVANTAGE MEDICAID [place] Care Teams Lead Installer Relationship Specialty Start Date End Date George Cortez MD PCP - General Family Medicine 12/18/23
== END 2025-02-16 12:50 | disposition home or self-care (01) ==
LOC: CARD 12:50
PROVIDERS: PCP Family Medicine; Visit Provider Family Medicine
DX: G45.3 Amaurosis fugax (principal)

== ENCOUNTER 2025-02-27 07:37 | Outpatient (OUT) | payer MEDICARE, MEDICAID, SELFPAY ==
--- OUTSIDE RECORDS SUMMARY | 2025-02-25 06:45 | XMS_ITS ---
Author Organization [facility] in [place] Address [address] [place] [address] Care Team Providers Care Toy Assembly Supervisor Name Role Phone Joe Cortez Primary Care [...] 08/20/2024 Active Vitamin D (Ergocalciferol) 1.25 MG (88618 UT) take 1 capsule by mouth every [...] 02/25/2025 Encounters Encounter Location Date Provider Diagnosis [facility] [address] [place] [address] 02/25/2025 Joe Cortez Encounter for Medica annual [...] Name:Joe Pace Diego, 09:45:00 AM, [address] [place], [address], Progress Notes * Scar JEFFREY MDOB:1980 (44 yo F)Acc No.[id number]:02/25/2025 UNLOCKED PROGRESS NOTE Progress Note Patient: Sacr FLOWERS Provider: Brice Cortez ([facility])MD :1980 A ge:44 Y S ex:Female Date:02/25/2025 Address:[address] [place], [place] [id number] Check In:10:43 AM ESTCheck O ut:11:08 AM EST Subjective: * Chief Complaints: * 1 . subsequent Medicare Wellness. * HPI: Katelynn putnam Annual Wellness Visit: Type of Visit: I [facility] Annual Wellness Visit (IAWV). Visual Acuity: N /A. Other Providers of Care: C are Team reviewed with patient: Margot waller, and updates made in [place] of Care Physical Activity: D o you [...] o you have a Durable Power of Performing Artist? Y es W ould you like to [...] in a a tent, in an overnight chcf, or temporarily in someone else's home??No A [...] laryngitis, Gastro- esophageal reflux disease without esophagitis, residential (current) use of insulin, Mass of head, [...] , Taking Vitamin D (Ergocalciferol) 1.25 MG (70711 UT) Capsule take 1 capsule by mouth [...] - Z00.00 (Primary) patient presents to the [facility] for a medicare wellness appointment, a total of 20 minutes was spent with the patient, a slums memory test was completed and the patient scored a 26/30, a vision test was completed without difficulty, also a anxiety, depression and safety screening was completed with no concerns Plan: * Treatment: * Procedure Codes: G 0438 ANNUAL WELL VISIT;INITIAL * Preventive Medicine: Screenings/Counseling: B [place] ACTION PLAN Above Normal BMI Follow-up D ietary management education, guidance, and counseling F ALL RISK SCREENING Fall Risk Assessment: N o falls in the past year Are you afraid of falling? N o * * Electronic signature of Joe Cortez MD, [id number] on 02/27/2025 at 07:39 AM EDT Sign off status: Pending Visit Status: C HK (Check Out) * Provider: Brice Cortez ([facility])MD Date: 02/25/2025 Generated for Svitlana sanches/Marissa/Beesmitting on: 02/27/2025 07:39 AM EDT History and Physical Notes * [...] Do you have a Durable Power of Performing Artist? : Yes Would you like to discuss this topic tod ay?: Yes Other Providers of Care: Care Team mary ellen hines with patient:: Yes, and updates made in [place] of [facility] Agree to complete So [facility] Determinants of Health questionnaire: Yes Within [...] in a a tent, in an overnight chcf, or temporarily in someone else's home?: No [...]
--- OUTSIDE RECORDS SUMMARY | 2025-02-25 07:09 | XMS_ITS ---
Author Organization [facility] in [place] Address [address] [place] [address] Care Team Providers Care Retail Client Manager Name Role Phone Diego Joe Primary Care Provider REASON FOR VISIT medicare wellness Problems Problem Type SNOMED Code ICD Code Onset Dates Problem Status W/U Status Risk Notes Problem Senile osteoporosis (M81.0) Active confirmed Encounters Encounter Location Date Provider Diagnosis [facility] [address] [place] [address] 02/25/2025 Joe Cortez Fatigue R53.83 ; Screening [...] Provider Name:Joe Cortez, 09:45:00 AM, [address] [place], [address], Progress Notes * Scar JEFFREY MDOB:1980 (44 yo F)Acc No.[id number]:02/25/2025 Patient: Scar FLOWERS :1980 A ge:44 Y S ex:Female Address:[address] [place] [address], [address] Subjective: * Chief Complaints: * M edicare [...] * true * Date: Generated for Svitlana sanches/Marissa/eTpatriciasmitting on: 0 02/27/2025 07:39 AM EDT
--- OUTSIDE RECORDS SUMMARY | 2025-02-25 07:15 | XMS_ITS ---
Author Organization [facility] in [place] Address [address] [place] [address] Care Team Providers Care Legal Writing Professor Name Role Phone Joe Cortez Primary Care Provider [phone] Allergies Allergen (clinical drug ingredient) Drug/Non Drug [...] hives Drug Allergy Active REASON FOR VISIT yearly check up Medications Medication SIG (Take, Route, Frequency, Duration) Notes Start Date End Date Status Furosemide 80 MG TAKE 1 TABLET EVERY MORNING for 90 Active levoFLOXacin 500 MG 1 tablet Orally Once a day for 10 day(s) 02/09/2025 Active levETIRAcetam 500 MG take 1 tablet by [facility] every 12 hours Orally every 12 hrs for 30 days Active HumuLIN R U-500 (CONCENTRATED) 500 UNIT/ML VIA INSULIN PUMP Subcutaneous for 22 days Active Gvoke HypoPen Active Famotidine 20 MG TAKE 1 TABLET TWICE DAILY for 90 Active Citalopram Hydrobromide 40 MG 1 tablet Orally Once a day for 90 days Active buPROPion HCl ER (XL) 300 MG take 1 tablet by mouth every morning for 30 Active Aspirin 81 81 MG 1 tablet Orally Once a day Active Albuterol Sulfate HFA 108 (90 Base) MCG/ACT INHALE 2 PUFFS EVERY 4 TO 6 HOURS NEEDED for 50 Active Advair HFA 230-21 MCG/ACT 2 puffs Inhala tion Twice a day 08/20/2024 Active Adipex-P 37.5 MG 1 tablet before breakfast Orally Once a day 02/25/2025 Active Ferrous Sulfate 325 (65 Fe) MG 1 tablet Orally twice daily for 30 days 04/16/2024 Not-Taking amLODIPine Besylate 10 MG 1 tablet Orall y Once a day for 90 days 04/18/2024 Not-Taking Vitamin D (Ergocalciferol) 1.25 MG (45190 UT) take 1 capsule by mouth every week for 84 Active risperiDONE 4 MG TAKE 1 TABLET AT BEDTIME for 90 days Active Pyridium 200 MG 1 tablet after meals Orally Three times a day for 2 days 05/23/2024 Active Potassium Chloride ER 10 MEQ TAKE 1 CAPSULE TWICE DAILY for 90 Active Plavix 75 MG 1 tablet Orally Once a day for 30 days 02/09/2025 Active Simvastatin 20 MG TAKE 1 TABLET EVERY DAY for 90 Active Omeprazole 40 MG TAKE 1 CAPSULE EVERY DAY for 90 Active metFORMIN HCl 1000 MG 1 tablet with a me al Orally bid Active Losartan Potassium 100 MG TAKE 1 TABLET EVERY DAY Orally Once a day for 90 days Active LORazepam 1 MG 1 Oral BID for 30 days F41.9 02/26/2023 Active Levothyroxine Sodium 100 MCG TAKE 1 [...] been since you last smoked? 5-10 years Vital Signs Weight 245 lbs 02/25/2025 Height 66 in 02/25/2025 Blood pressure systolic 128 mm Hg 02/26/20 25 Blood pressure diastolic 54 mm Hg 025 BMI 39.54 kg/m2 02/25/2025 Encounters Encounter Location Date Provider Diagnosis [address] [place] [address] 02/25/2025 Joe Cortez Well adult Z00.0 0 Assessments Encounter Date Diagnosis (ICD Code) Assessment Notes Treatment Notes Treatment Clinical Notes Section Notes 02/25/2025 Well adult (ICD-10 - Z00.00) Plan Of Treatment Medication Medication Name Sig Start Date Stop Date Notes Adipex-P 37.5 MG 1 tablet before madelyn kfast Orally Once a day 02/25/2025 Pending Test Test Name Order Date RANDOM URINE PROTEIN 02/25/2025 GLYCOHEMOGLOBIN A1C 02/25/2025 PROF 14(COMP METB) 02/25/2025 Next Appt Details Provider Name:Joe Cortez, 09:45:00 AM, [address] [place], [address], Progress Notes * Scar JEFFREY MDOB:1980 (44 yo F)Acc No.[id number]:02/25/2025 UNLOCKED PROGRESS NOTE Progress Note Patient: Scar FLOWERS Provider: Brice Cortez ([facility])MD :1980 A ge:44 Y S ex:Female Date:02/25/2025 Address:[facility]/[address] Check In:11:03 AM ESTCheck O ut:11:31 AM EST Subjective: * Chief Complaints: * 1 . Yearly check up. * HPI: G eneral: COPd - Not doing well - stil with sig dyspna just even 10-12 feet can feel it - using inhaler - needing to usine inhaler Q 4 horus disucsed weight - not losing - reviewed labs sugars not controlle - do ing as well as canwith diet. * ROS: E ENT: hearing changes d enies. v isual changes d enies.?non-healing mouth sores d enies. s wollen glands or neck lumps d enies. h oarseness d enies. s ore throat d enies. d ifficulty swallowing d enies. n ose bleeds d enies. n lauren congestion d enies. e ar ache d enies. e ar discharge?denies. r inging in ears d enies. l ight sensitivity d enies. e ye pain d enies. b lurring d enies. e ye irritation d enies. d ouble vision d enies.?vision loss d enies. G eneral/Constitutional: Sweats: D enies. F atigue d enies. S leep problems d enies. A norexia d enies. M alaise d enies. W eight loss d enies.?Fatigue or Weakness d enies. F ever or Chills d enies. C ardiovascular: Shortness of Breath w/lying flat d enies. L ightheadedness/dizziness d enies. C hest tightness/ heavy pressure d enies. S welling of legs, ankles, or feet d enies. W aking up with shortness of breath d enies. C hest pain denies. P alpitations d enies. W eight gain d enies. R espiratory: Chronic or frequent cough d enies. C oughing up blood?denies. D ifficulty breathing d enies. P roductive cough d enies. S noring?denies. S hortness of breath that awakens from sleep (PND) d enies. C hest pain d enies. S putum production d enies. W heezing d enies. M usculoskeletal: Joint pain d enies. J oint Fluid d enies. B ack pain d enies. K nee pain d enies. N maria del carmen pain d enies. J oint Stiffness d enies. M uscle cramps d enies. W eakness of muscles d enies. A rthritis d enies. M uscle aches d enies. P ain in shoulder(s) d enies. S wollen joints d enies. 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, Mass of head, [...] you last smoked??5-10 years * Medications: T aking Advair HFA(Fluticasone-Salmeterol) 230-21 [...] hours Orally every 12 hrs , Taking levoFLOXacin 500 MG Tablet 1 tablet Orally Once a day , Taking Levothyroxine Sodium 100 MCG Tablet [...] TAKE 1 CAPSULE TWICE DAILY , Taking Pyridium(Phenazopyridine HCl) 200 MG Tablet 1 tablet after meals Orally Three times a day , Taking risperiDONE 4 MG Tablet TAKE 1 TABLET AT BEDTIME , Taking Simvastatin 20 MG Tablet TAKE 1 TABLET EVERY DAY , Taking Vitamin D (Ergocalciferol) 1.25 MG (46477 UT) Capsule take 1 capsule by mouth [...] Hg, BMI:39.54Index, Ht-cm: 167.64 cm, Wt-k.13 kg. * Examination: P hysical Exam: GENERAL: w ell developed, well nourished, in no acute distress. HEAD: n ormocephalic/atraumatic. EYES: p upils equal, round and reactive to light, conjunctivae and sclerae normal. EARS: n o deformity or lesion of external ear, canals and TM appear normal bilaterally, TM's intact, not inflamed with normal light reflex, hearing grossly normal to conversational speech. NOSE: n o deformity, discharge, inflammation, or lesions.? MOUTH: m ucous membranes moist, normal oropharynx and posterior pharynx without lesions or exudates, tongue normal, dentition normal. NECK: n maria del carmen supple, no masses or palpable cervical nodes, trachea midline, thyroid without nodules, masses, tenderness, or enlargement. CHEST: n o chest wall deformity, no chest wall tenderness.? LUNGS: n ormal respiratory effort and clear to auscultation, no wheezes, rales, or rhonchi, good air exchange. CARDIO: r egular rate and rhythm, normal S1 and S2, nor murmur, rub, or gallop. PULSES: n ormal capillary refill. ABDOMEN: s oft, non-distended, non-tender, no masses. MUSCULOSKELETAL: n o deformity or scoliosis noted, normal range of motion, joints normal, no erythema, edema, effusion, or ecchymosis. EXTREMITY: n o clubbing, cyanosis, edema, or deformity with normal ROM in both upper and lower bilateral extremities. NEUROLOGIC: g rossly normal. SKIN: n o rashes, ulcerations, or suspicious lesions. LYMPH NODES: n o cervical adenopathy, nodes normal. MENTAL STATUS: a lert and oriented x3, normal mood and affect. Assessment: * Assessment: 1. W ell adult - Z00.00 (Primary) Plan: * Treatment: * Preventive Medicine: Screenings/Counseling: B IA ACTION PLAN Above Normal BMI Follow-up D ietary management education, guidance, and counseling * * Electronic signature of Joe Cortez MD, [id number] on 02/27/2025 at 07:39 AM EDT Sign off status: Pending Visit Status: C HK (Check Out) * Provider: Brice Cortez ([facility])MD Date: 02/25/2025 Generated for Printi ng/Faxing/eTransmitting on: 0 02/27/2025 07:39 AM EDT History and Physical Notes * HPI (History of Present Illness) Category Sub-Category Detail Notes Category Not es General COPd - Not doing well - stil with sig dyspna just even 10-12 feet can feel it - using inhaler - needing to usine inhaler Q 4 horus disucsed weight - not losing - reviewed labs sugars not controlle - do ing as well as canwith diet Examination Category Sub-Category Detail Notes Category Not es Physical Exam GENERAL: well developed, well nourished, in no acute distress HEAD: normocephalic/atraum atic EYES: pupils equal, round and reactive to light, conjunctivae and sclerae normal EARS: no deformity or lesi on of external ear, canals and TM appear normal bilaterally, TM's intact, not inflamed with normal light reflex, hearing grossly normal to conversational speech NOSE: no deformity, discha rge, inflammation, or lesions MOUTH: mucous membranes fani st, normal oropharynx and posterior pharynx without lesions or exudates, tongue normal, dentition normal NECK: neck supple, no mass es or palpable cervical nodes, trachea midline, thyroid without nodules, masses, tenderness, or enlargement CHEST: no chest wall deform ity, no chest wall tenderness LUNGS: normal respiratory e ffort and clear to auscultation, no wheezes, rales, or rhonchi, good air exchange CARDIO: regular rate and rhy thm, normal S1 and S2, nor murmur, rub, or gallop PULSES: normal capillary ref ill ABDOMEN: soft, non-distended, non-tender, no masses RECTAL: MUSCULOSKELETAL: no deformity or scol iosis noted, normal range of motion, joints normal, no erythema, edema, effusion, or ecchymosis EXTREMITY: no clubbing, cyanosi s, edema, or deformity with normal ROM in both upper and lower bilateral extremities NEUROLOGIC: grossly normal SKIN: no rashes, ulceratio ns, or suspicious lesions LYMPH NODES: no cervical adenopat hy, nodes normal MENTAL STATUS: alert and oriented x 3, normal mood and affect
--- NOTE | 2025-02-27 | MR_ITS ---
The [address] [address] Patient Name: YANICK JEFFREY MRN: [id number] date: 1980 Sex: F Assigned Patient Location: MRI Current Patient Location: LAB Accession/Order Number: [id number] Exam Date: 02/27/2025 15:28 Report Date: 02/27/2025 15:34 At the request of: LORENZO CARLSON MD Procedure: MR head/brain wo con MR head/brain wo con 02/27/2025 9:33 AM SIGN AND SYMPTOMS: ^amaurosis fugax both eyes PROTOCOL: Multiplanar multisequence MR images of the brain without IV contrast COMPARISON: None. FINDINGS: Extra axial spaces: Age appropriate. Hemorrhage: None. Ventricular system: The ventricles are mildly caudal cephalic. Basal cisterns: Within normal limits and not effaced. 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 The septum pellucidum is absent. Midline shift: None.. Cerebellum: Within normal limits. Brainstem: Within normal limits. OTHER: Calvarium: Normal marrow signal. Vascular system: Satisfactory flow voids within the anterior and posterior circulation. Visualized Paranasal sinuses: Within normal limits. Visualized Orbits: Within normal limits. Visualized upper cervical spine: Within normal limits. Sella and skull base: Within normal limits. MR/MR head/brain wo con IMPRESSION: No acute intracranial pathology. 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 Impression dictated by: Jim Rico M.D. 02/27/2025 3:34 PM Dictation Location: [place] [address] Electronically authenticated by: [id number] Y Date: 02/27/2025 15:34
--- NOTE | 2025-02-27 | MR_ITS ---
The [address] [address] Patient Name: YANICK JEFFREY MRN: [id number] date: 1980 Sex: F Assigned Patient Location: MRI Current Patient Location: LAB Accession/Order Number: [id number] Exam Date: 02/27/2025 15:34 Report Date: 02/27/2025 15:42 At the request of: LORENZO CARLSON MD Procedure: MR angio head wo con MR angio head wo con 02/27/2025 9:33 AM SIGN OF SYMPTOMS: ^amaurosis fugax both eyes PROTOCOL: Axial 3-D qatc-rm-krpepm MRA of the brain without contrast including 3-D reconstructions COMPARISON: None. FINDINGS: The superior cerebellar arteries, posterior inferior cerebellar arteries, and the basilar artery are within normal limits. The posterior cerebral arteries are unremarkable. The intracranial segments of the internal carotid arteries are within normal limits. There are normal anterior and middle cerebral arteries. Anterior communicating artery is patent. Posterior communicating arteries are hypoplastic bilaterally which is a normal variant.. The deep venous system and dural venous systems appear to be patent. MR/MR angio head wo con IMPRESSION: No focal stenosis, occlusion, or aneurysmal dilatation. Impression dictated by: Jim Rico M.D. 02/27/2025 3:42 PM Dictation Location: [place] [address] Electronically authenticated by: [id number] Y Date: 02/27/2025 15:42
--- NOTE | 2025-02-27 | MR_ITS ---
[place] [id number] Patient Name: YANICK JEFFREY MRN: [id number] date: 1980 Sex: F Assigned Patient Location: MRI Current Patient Location: LAB Accession/Order Number: [id number] Exam Date: 02/27/2025 15:42 Report Date: 02/27/2025 15:44 At the request of: LORENZO CARLSON MD Procedure: MR angio neck wo con MR angio neck wo con 02/27/2025 9:55 AM SIGNS AND SYMPTOMS: ^amaurosis fugax both eyes PROTOCOL: 3-D glka-kk-ufrtsh MRA of the neck with 3-D reconstructions COMPARISON: None FINDINGS: The vertebral arteries are normal in course and caliber up to the skull base. The common and internal carotid arteries are normal in caliber. The carotid bifurcations are within normal limits. MR/MR angio neck wo con IMPRESSION: No focal stenosis, aneurysm dilatation, or occlusion. Impression dictated by: Jim Rico M.D. 02/27/2025 3:44 PM Dictation Location: [place] [address] Electronically authenticated by: [id number] Y Date: 02/27/2025 15:44
--- OUTSIDE RECORDS SUMMARY | 2025-02-27 07:39 | XMS_ITS | Referral Summary ---
Author Organization [facility] Address [address] [place] [address] Care Team Providers Care Enterprise Cloud Architect Name Role Phone Unavailable Primary Care Provider Unavailabl e Allergies Active Allergy Reactions Criticality Noted Date Comments Codeine 05/07/2022 Divalproex 05/07/2022 Fenofibric Acid (Choline) 05/07/2022 Morphine 05/07/2022 Penicillins 05/07/2022 Medications albuterol 90 mcg/actuation inhaler Active aspirin 325 mg tablet Take 1 tablet every day by oral route for 30 days. 0 Active buPROPion XL (Wellbutrin XL) 300 mg [...] Years Used Date Smoking Tobacco: Never Assessed ND Safety & Environment Answer Date Rec orded Fear of Current or Ex-Partner Not on file Emotionally Abused Not on file 11/01/2023 Physically Abused Not on file 11/01/2023 Sexually Abused Not on file 11/01/2023 Physically or Sexually Abused Not on file Comments Unknown Sex and Gender Information Value Date Recorded Sex Assigned at Not on file Legal Sex Female 9:29 PM EDT Gender Identity Not on file [...] EST Plan of Treatment Not on file Insurance [place]ICAID [place] [employer]VANTAGE
--- OUTSIDE RECORDS SUMMARY | 2025-02-27 07:39 | XMS_ITS | Clinical Summary ---
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 Take with meals. 180 tablet 1 10/30/19 25 025 Active Continuous Glucose Cone Former (Dexcom G7 Cone Former) deviceIndications :Type 1 diabetes mellitus with hyperglycemia (HCC) 1 kit continuously 1 each 1 10/31/19 25 Active Continuous Glucose Sensor (Dexcom G7 Sensor) miscIndications:T ype 1 diabetes mellitus with hyperglycemia (HCC) 1 kit Every 10 (ten) days 9 each 1 10/31/19 25 Active Insulin Disposable Pump (Omnipod 5 [id number] Intro Gen 5) kitIndications:Ty pe 1 diabetes mellitus with hyperglycemia (HCC) USE DIRECTED 1 kit 3 11/14/19 25 Active insulin regular (HumuLIN R) 500 UNIT/ML CONCENTRATED injectionIndicati ons: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) USE 450 units TOTAL daily per insulin pump 20 mL 11 01/31/20 25 Active glucose blood (Contour Next Test) test stripIndications: 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) TEST BLOOD SUGAR SIX TIMES DAILY 550 strip 3 01/31/20 25 Active Insulin Disposable Pump (Omnipod 5 [id number] Pods Gen 5) miscIndications:T ype 1 diabetes mellitus with hyperglycemia (HCC) Inject 1 Bar under the skin every other day 45 each 1 01/31/20 25 025 Active insulin regular (HumuLIN R) 500 UNIT/ML CONCENTRATED injectionIndicati ons: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) USE 450 units TOTAL daily per insulin pump 20 mL 11 01/01/20 25 025 Discontin ued(Reord er) Insulin Disposable Pump (Omnipod 5 [id number] Pods Gen 5) miscIndications:T ype 1 diabetes mellitus with hyperglycemia (HCC) CHANGE POD EVERY OTHER DAY FOR 45 each 3 01/13/20 25 025 Discontin ued(Reord er) glucose blood (Contour Next Test) test stripIndications: 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) TEST BLOOD SUGAR SIX TIMES DAILY 550 [...] colon Hypertension 01/17/2024 Irritable bowel syndrome 01/17/2024 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 01/17/2024 Migraine headache [...] Description 01/30/2025 10:20 AM EDT Office Visit [facility] [address] [place] [address] Zay Montiel MD 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); Vitamin D deficiency; Encounter for dietary consultation; Insulin long-term use (HCC); Microalbuminuria; Insulin pump in place; Encounter for fitting or adjustment of insulin pump; Primary hypertension ; Type 1 diabetes mellitus with hyperglycemia (HCC) 01/30/2025 Bamboo flowsheet [facility] [address] [place] [address] Zay Montiel MD 01/15/2025 Telephone [facility] [address] [place] [address] Zay Montiel MD Med Refill 01/12/2025 Refill [facility] [address] [place] [address] Zay Montiel MD Type 1 diabetes mellitus with hyperglycemia (HCC) 01/12/2025 Refill [facility] [address] [place] [address] Zay Montiel MD 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); Type 1 diabetes mellitus with hyperglycemia (HCC) 01/12/2025 Refill [facility] [address] [place] [address] Scarlett ShorteCHEN Type 1 diabetes mellitus with hyperglycemia (HCC) 12/30/2024 Refill [facility] [address] [place] [address] Zay Montiel MD 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) from Last 3 Months Family History Medical History Relation Name Comments Cancer Father Heart failure Father Hypertension Father Relation Name Status Comments Father Social History Tobacco Use Types Packs/Day Years Used Date Smoking Tobacco: Former Cigarettes 2016 Smokeless Tobacco: Never Tobacco Cessation:Counseling Given: [...] AM EDT Office Visit [facility] [address] [place] [address] Zay Montiel MD [address] [place] [address] Procedures Procedure Name Priority Date/Time Associated Diagnosis Comments POCT GLYCOSYLATED HEMOGLOBIN (HGB A1C) Routine 01/30/2025 10:24 AM EDT 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
--- OUTSIDE RECORDS SUMMARY | 2025-02-27 07:39 | XMS_ITS | Encounter Summary ---
Author Organization [facility] Address [address] [place] [address] Care Team Providers Care Eyelet Row Marker Name Role Phone George Cortez MD Primary Care Provider [phone] Encounter Details Date Type Department Care Team (Late st Contact Info) Description 01/17/2024 Clinisync Result Encounter [facility] Unsolicited Shara Healy MD [address] [facility] [address] [place] [address] Social History Tobacco Use Types [...] EDT Office Visit [facility] [address] [place] [address] Zay Montiel MD [address] [place] [address] documented as of this encounter Procedures Procedure Name Priority Date/Time Associated Diagnosis Comments CT SOFT TISSUE NECK W IV CONTRAST 01/17/2024 10:05 AM EDT documented in this encounter Results * CT soft tissue neck w IV contrast (01/17/2024 10:05 AM EDT) Anatomical Region Laterality Modality Head, Neck Computed Tomogra phy 01/17/2024 10:0 5 AM EDT Narrative 01/17/2024 10:07 AM EDT [address] [address] [address] Scan Report Signed Patient: SCAR JEFFREY MR#: [id number] : 1980 Acct:[id number] Age/Sex: 43 / F ADM Date: 01/17/24 Loc: LAB Attending Dr: Shara Healy M.D. Ordering Physician: Shara Healy M.D. Date of Service: 01/17/24 Procedure(s): CT soft tissue neck w con Accession Number(s): [id number] cc: George Cortez M.D. [place] [id number] Patient Name: SCAR JEFFREY MRN: [id number] date: 1980 Sex: F Assigned Patient Location: LAB Current Patient Location: LAB Accession/Order Number: [id number] Exam Date: 01/17/2024 09:25 Report Date: 01/17/2024 [...] Signed By: 01/17/24 1007 DD/ 1005 TD/TT: Grease Renderer: Procedure Note Radiology, Radiologist, MD - 01/17/2024 [place] [address] CT Scan Report Signed Patient: SCAR JEFFREY MMR#: [id number] : 1980Acct:[id number] Age/Sex: 43 / FADM Date: 01/17/24 Loc: LAB Attending Dr: Shara Healy M.D. Ordering Physician: Shara Healy M.D. Date of Service: 01/17/24 Procedure(s): CT soft tissue neck w con Accession Number(s): [id number] cc: George Cortez M.D. The [place] [address] Patient Name: SCAR JEFFREY MRN: [id number] date: 1980 Sex: F Assigned Patient Location: LAB Current Patient Location: LAB Accession/Order Number: [id number] Exam Date: 01/17/2024 09:25 Report Date: 01/17/2024 [...] M.D. Signed By:01/17/24 1007 DD/ 1005 TD/TT: Grease Renderer: Shara Healy MD IMG CT PROCEDURES Final Resul t documented in this encounter Visit Diagnoses Not on filedocumented in this encounter Care Teams Eyelet Row Marker Relationship Specialty Start Date End Date George Cortez MD PCP - General Family Medicine 12/18/23 documented as of this encounter
--- OUTSIDE RECORDS SUMMARY | 2025-02-27 07:39 | XMS_ITS | Encounter Summary ---
Author Organization [facility] Address [address] [place] [address] Care Team Providers Care Manager Math Name Role Phone George Cortez MD Primary Care Provider [phone] Encounter Details Date Type Department Care Team (Late st Contact Info) Description 01/17/2024 Abstract [facility] [address] [place] [address] Jennifer Zheng MA Social History [...] Visit [facility] [address] [place] [address] Zay Montiel MD [address] [place] [address] documented as of this encounter Visit Diagnoses Not on filedocumented in this encounter Care Teams Manager Math Relationship Specialty Start Date End Date George Cortez MD PCP - General Family Medicine 12/18/23 documented as of this encounter
--- OUTSIDE RECORDS SUMMARY | 2025-02-27 07:40 | XMS_ITS | Patient Health Record ---
Author Organization [facility] in [place] Address [address] [place] [address] Care Team Providers Care Loan Processor Name Role Phone Joe Carlson Primary Care Provider [phone] Mer Agudelo Unavailable [phone] Allergies Allergen (clinical drug ingredient) Drug/Non Drug [...] Active Results Component Value Reference Range Notes CBC AUTO DIFF Reviewed date:04/15/2024 03:18:59 PM Interpretation: Performing Lab: Notes/Report: [facility] , White Blood Count 6.6 4.0-11.0 10 [...] 0.00-0.03 10 3/uL Performing Lab: see note [facility] GLYCOHEMOGLOBIN A1C Reviewed date:04/15/2024 03:18:59 PM Interpretation: Performing Lab: Notes/Report: [facility] , Glycohemoglobin A1C 7.4 4.5-6.2 % ADA RECOMMENDED LIMIT 4.0 - 6.0 ADA THERAPEUTIC TARGET < 7.0 ACTION SUGGESTED > 7.0 Estimated Average Glucose 166 Performing Lab: see note [facility] PROF CHEM 8 (BAS METB) Reviewed date:10/06/2024 08:25:36 PM Interpretation: Performing Lab: Notes/Report: [facility] , Sodium 137 136-145 mmol/L Potassium 4.2 3.5-5.1 mmol/L Chloride 100 98-107 mmol/L Carbon Dioxide 28.8 21.0-32.0 mmol/L Anion Gap 12.4 Glucose 132 74-106 mg/dL Blood Urea Nitrogen 13.0 7.0-18.0 mg/dL Creatinine 1.09 0.55-1.02 mg/dL Estimated GFR ( Kenna >60 >=60 mL/min/1.73m 2 Estimated GFR (Non- Sherri 54 >=60 mL/min/1.73m 2 BUN Creatinine Ratio 11.9 Calcium 9.3 8.5-10.1 mg/dL Performing Lab: see note [facility] CT soft tissue neck w con Reviewed date:09/29/2024 01:52:06 PM Interpretation: Performing Lab: Notes/Report: Source Facility: [place] [address] [address] [address] Scan Report Signed Patient: SCAR JEFFREY MR#: [id number] : 1980 Acct:[id number] Age/Sex: 44 / F ADM Date: 09/27/24 Loc: LAB Attending Dr: Lorenzo Carlson M.D. Ordering Physician: Lorenzo Carlson M.D. Date of Service: 09/27/24 Procedure(s): CT soft tissue neck w con Accession Number(s): [id number] cc: Lorenzo Carlson M.D. [place] [id number] Patient Name: SCAR JEFFREY MRN: [id number] date: 1980 Sex: F Assigned Patient Location: LAB Current Patient Location: Accession/Order Number: [id number] Exam Date: 09/27/2024 09:55 Report Date: 09/29/2024 [...] unremarkable. No abnormality of parapharyngeal, retropharyngeal and director traffic and planning spaces is noted. The parotids, submandibular glands [...] M.D. Signed By: 09/29/24807 DD/ 4 TD/TT: Char House Supervisor: [place] [address] CT Scan Report Signed Patient: SCAR JEFFREY MR#: [id number] : 1980 Acct:[id number] Age/Sex: 44 / F ADM Date: 09/27/24 Loc: LAB Attending Dr: Gilberto Carlson M.D. Ordering Physician: Lorenzo Carlson M.D. Date of Service: 09/27/24 Procedure(s): CT sof t tissue neck w con Accession Number(s): [id number] cc: Lorenzo Carlson M.D. [place] [id number] Patient Name: SCAR JEFFREY MRN: [facility]:[id number] date: 1980 Sex: F Assigned Patient Location: LAB Current Patient Location: Accession/Order Numb er: [id number] Exam Date: 09/27/2024 09:55 Report Date: 09/29/2024 [...] unremarkable. No abnormality of parapharyngeal, retropharyngeal and director traffic and planning spaces is noted. The parotids, submandibular glands [...] Dictated By: Gilberto Salinas M.D. Signed By: 09/29/24 0808 DD/ TD/TT: Char House Supervisor: CREATININE Reviewed date:09/28/2024 02:34:45 PM Interpretation: Performing Lab: Notes/Report: [facility] , Creatinine 1.13 0.55-1.02 mg/dL Estimated GFR ( Kenna >60 >=60 mL/min/1.73m 2 Estimated GFR (Non- Sherri 52 >=60 mL/min/1.73m 2 Performing Lab: see note - [facility] LB Occult Blood* Reviewed date:08/26/2024 04:04:23 PM Interpretation: Performing Lab: Notes/Report: [facility] , Occult Blood Positive Performing Lab: see note - [facility] LB Troponin I High Sensitivity Reviewed date:08/26/2024 12:44:27 PM Interpretation: Performing Lab: Notes/Report: [facility] , Troponin I High Sensitivity 10.2 4.0-51.3 pg/mL CUT-OFF POINTS HAVE BEEN ESTABLISHED BASED ON THE FOURTH UNIVERSAL DEFINITION OF MYOCARDIAL INFARCTION. THE UPPER REFERENCE LIMIT (URL) OF TROPONIN, DEFINED THE 99TH PERCENTILE OF cTnI DISTRIBUTION IN A REFERENCE POPULATION, HAS BEEN CONFIRMED THE DECISION THRESHOLD FOR PA DIAGNOSIS. 99TH PERCENTILE = 51.4 PG/ML NOTE: HIGH-SENSITIVITY TROPONIN ASSAY IS NOT INTENDED TO BE USED IN ISOLATION BUT SHOULD BE INTERPRETED IN CONJUNCTION WITH OTHER DIAGNOSTIC AND CLINICAL INFORMATION. Performing Lab: see note ML - [facility] LB VITAMIN D 25 [place] Reviewed date:08/26/2024 12:54:48 PM Interpretation: Performing Lab: Notes/Report: [facility] , Vitamin D 33.1 <20 ng/mL Vit D deficient 20-<30 ng/mL Vit D insufficient 30-100 ng/mL Vit D sufficient >100 ng/mL Potential Toxicity Performing Lab: see note ML - [facility] LB TSH Reviewed date:08/26/2024 12:44:27 PM Interpretation: Performing Lab: Notes/Report: [facility] , Thyroid Stimulating Hormone 2.818 0.358-3.740 uIU/mL Performing Lab: see note - [facility] LB T4 Reviewed date:08/26/2024 12:44:27 PM Interpretation: Performing Lab: Notes/Report: [facility] , T4 Thyroxine 10.10 4.80-13.90 ug/dL Performing Lab: see note - [facility] LB PROF 14(COMP METB) Reviewed date:08/26/2024 12:44:27 PM Interpretation: Performing Lab: Notes/Report: [facility] , Sodium 137 136-145 mmol/L Potassium 4.5 [...] 1.1 Performing Lab: see note ML - [facility] LB LIPID PROFILE Reviewed date:08/26/2024 12:44:27 PM Interpretation: Performing Lab: Notes/Report: [facility] , Triglycerides 197 <=150 mg/dL Cholesterol 165 <=200 mg/dL HDL Cholesterol 35 40-60 mg/dL > or =60 mg/dl - LOW CARDIOVASCULAR RISK <40 mg/dl - HIGH CARDIOVASCULAR RISK LDL Cholesterol Calculated 91.0 <100 mg/dl OPTIMAL 100-129 mg/dl NEAR OR ABOVE OPTIMAL 130-159 mg/dl BORDERLINE HIGH 160-189 mg/dl HIGH >190 mg/dl VERY HIGH VLDL CHOLESTEROL 39.4 Chol HDL Ratio 4.7 3.3 - 4.4 LOW RISK 4.4 - 7.1 AVERAGE RISK 7.1 - 11.0 MODERATE RISK >11.0 HIGH RISK Performing Lab: see note ML - [facility] IRON Reviewed date:08/26/2024 12:36:47 PM Interpretation: Performing Lab: Notes/Report: [facility] , Iron 54.0 50.0-170.0 ug/dL Performing Lab: see note ML - [facility] INSULIN Reviewed date:08/27/2024 04:03:13 PM Interpretation: Performing Lab: Notes/Report: [facility] , Insulin 263.0 2.6-24.9 uIU/mL Performed at: - [facility] [address] [id number] Horse Exerciser: Víctor Edwards PhD, Phone: [phone] Performing Lab: see note - [facility] LB GLYCOHEMOGLOBIN A1C Reviewed date:08/26/2024 12:36:47 PM Interpretation: Performing Lab: Notes/Report: [facility] , Glycohemoglobin A1C 8.3 4.5-6.2 % ADA RECOMMENDED LIMIT 4.0 - 6.0 ADA THERAPEUTIC TARGET < 7.0 ACTION SUGGESTED > 7.0 Estimated Average Glucose 192 Performing Lab: see note - [facility] FREE T3 Reviewed date:08/26/2024 12:44:27 PM Interpretation: Performing Lab: Notes/Report: [facility] , Free T3 2.62 2.18-3.98 pg/mL Performing Lab: see note ML - [facility] LB CBC AUTO DIFF Reviewed date:08/26/2024 12:23:03 PM Interpretation: Performing Lab: Notes/Report: [facility] , White Blood Count 7.4 4.0-11.0 10 [...] Performing Lab: see note ML - [facility] LB US THYROID Reviewed date:06/10/2024 07:19:56 PM Interpretation: Performing Lab: Notes/Report: Source Facility: [facility] [place] [address] [place] [address] Ultrasound Report Signed Patient: SCAR JEFFREY MR#: [id number] : 1980 Acct:[id number] Age/Sex: 43 / F ADM Date: 06/10/24 Loc: US Attending Dr: Lorenzo Carlson M.D. Ordering Physician: Lorenzo Carlson M.D. Date of Service: 06/10/24 Procedure(s): US thyroid Accession Number(s): [id number] cc: Lorenzo Carlson M.D. [place] [address] Patient Name: SCAR JEFFREY MRN: [facility]:[id number] date: 1980 Sex: F Assigned Patient Location: US Current Patient Location: US Accession/Order Number: [id number] Exam Date: 06/10/2024 10:00 Report Date: 06/10/2024 [...] region of patient's palpable abnormality TI-RADS: The [employer] TI-RADS committee's white paper recommendations for thyroid lesions classified as TR4 (moderately suspicious) are listed below: > 1.0 cm. Follow-up ultrasound in 1, 2, 3, and 5 years. > 1.5 cm. FNA. J. Am Jose Eduardo Radiol 2017;14:587-595. Electronically authenticated by: EDAN GOMEZ Date: 06/10/2024 13:48 Dictated By: Edna Gomez M.D. Signed By: 06/10/24 1351 DD/ 1348 TD/TT: Char House Supervisor: The [address] [address] Ultrasound Report Signed Patient: SCAR JEFFREY MR#: [id number] : 1980 Acct:[id number] Age/Sex: 43 / F ADM Date: 06/10/24 Loc: US Attending Dr: Gilberto Carlson M.D. Ordering Physician: Lorenzo Carlson M.D. Date of Service: 06/10/24 Procedure(s): US thyroid Accession Number(s): [id number] cc: Lorenzo Carlson M.D. [address] [address] Patient Name: SCAR JEFFREY MRN: [id number] date: 1980 Sex: F Assigned Patient Location: US Current Patient Location: US Accession/Order Numb er: [id number] Exam Date: 10:00 Report Date: 06/10/2024 13:48 [...] By: Deandre Gomez M.D. Signed By: 06/10/24 5027 DD/ 1348 TD/TT: Char House Supervisor: Troponin I High Sensitivity Reviewed date:04/15/2024 03:18:59 PM Interpretation: Performing Lab: Notes/Report: [facility] , Troponin I High Sensitivity 5.7 4.0-51.3 pg/mL CUT-OFF POINTS HAVE BEEN ESTABLISHED BASED ON THE FOURTH UNIVERSAL DEFINITION OF MYOCARDIAL INFARCTION. THE UPPER REFERENCE LIMIT (URL) OF TROPONIN, DEFINED THE 99TH PERCENTILE OF cTnI DISTRIBUTION IN A REFERENCE POPULATION, HAS BEEN CONFIRMED THE DECISION THRESHOLD FOR PA DIAGNOSIS. 99TH PERCENTILE = 51.4 PG/ML NOTE: HIGH-SENSITIVITY TROPONIN ASSAY IS NOT INTENDED TO BE USED IN ISOLATION BUT SHOULD BE INTERPRETED IN CONJUNCTION WITH OTHER DIAGNOSTIC AND CLINICAL INFORMATION. Performing Lab: see note ML - [facility] LB TSH Reviewed date:04/15/2024 03:18:59 PM Interpretation: Performing Lab: Notes/Report: [facility] , Thyroid Stimulating Hormone 1.638 0.358-3.740 uIU/mL Performing Lab: see note ML - [facility] LB T4 Reviewed date:04/15/2024 03:18:59 PM Interpretation: Performing Lab: Notes/Report: [facility] , T4 Thyroxine 11.20 4.80-13.90 ug/dL Performing Lab: see note ML - [facility] LB PROF 14(COMP METB) Reviewed date:04/15/2024 03:18:59 PM Interpretation: Performing Lab: Notes/Report: [facility] , Sodium 140 136-145 mmol/L Potassium 3.8 3.5-5.1 mmol/L Chloride 102 98-107 mmol/L Carbon Dioxide 29.2 21.0-32.0 mmol/L Anion Gap 12.6 Glucose 55 74-106 mg/dL Blood Urea Nitrogen 11.0 7.0-18.0 mg/dL Creatinine 0.94 0.55-1.02 mg/dL Estimated GFR ( Kenna >60 >=60 Estimated GFR (Non- Shreri >60 >=60 BUN Creatinine Ratio 11.7 Calcium 9.3 8.5-10.1 mg/dL Bilirubin Total 0.6 0.2-1.0 mg/dL Aspartate Amino Transferase 30 15-37 U/L Alanine Aminotransferase 50 14-59 U/L Alkaline Phosphatase 118 46-116 U/L Total Protein 7.3 6.4-8.2 g/dL Albumin Level 4.1 3.4-5.0 g/dL Globulin 3.2 Albumin Globulin Ratio 1.3 Performing Lab: see note ML - [facility] LIPID PROFILE Reviewed date:04/15/2024 03:18:59 PM Interpretation: Performing Lab: Notes/Report: [facility] , Triglycerides 173 <=150 mg/dL Cholesterol 148 <=200 mg/dL HDL Cholesterol 34 40-60 mg/dL > or =60 mg/dl - LOW CARDIOVASCULAR RISK <40 mg/dl - HIGH CARDIOVASCULAR RISK LDL Cholesterol Calculated 80.0 <100 mg/dl OPTIMAL 100-129 mg/dl NEAR OR ABOVE OPTIMAL 130-159 mg/dl BORDERLINE HIGH 160-189 mg/dl HIGH >190 mg/dl VERY HIGH VLDL CHOLESTEROL 34.6 Chol HDL Ratio 4.4 3.3 - 4.4 LOW RISK 4.4 - 7.1 AVERAGE RISK 7.1 - 11.0 MODERATE RISK >11.0 HIGH RISK Performing Lab: see note ML - [facility] IRON Reviewed date:04/15/2024 03:18:59 PM Interpretation: Performing Lab: Notes/Report: [facility] , Iron 45.0 50.0-170.0 ug/dL Performing Lab: see note ML - [facility] FREE T3 Reviewed date:04/15/2024 03:18:59 PM Interpretation: Performing Lab: Notes/Report: [facility] , Free T3 2.83 2.18-3.98 pg/mL Performing Lab: see note ML - [facility] US soft tissue head and neck Reviewed date:09/08/2024 08:32:33 PM Interpretation: Performing Lab: Notes/Report: Source Facility: [facility] [place] [address] [place] [address] Ultrasound Report Signed Patient: SCAR JEFFREY MR#: [id number] : 1980 Acct:[id number] Age/Sex: 43 / F ADM Date: 09/05/24 Loc: US Attending Dr: Lorenzo Carlson M.D. Ordering Physician: Lorenzo Carlson M.D. Date of Service: 09/05/24 Procedure(s): US soft tissue head and neck Accession Number(s): [id number] cc: Lorenzo Carlson M.D. [place] [id number] Patient Name: SCAR JEFFREY MRN: [id number] date: 1980 Sex: F Assigned Patient Location: US Current Patient Location: Accession/Order Number: [id number] Exam Date: 09/05/2024 10:33 Report Date: 09/08/2024 [...] Signed By: 09/08/24 1247 DD/ 1245 TD/TT: Char House Supervisor: [place] [address] Ultrasound Report Signed Patient: SCAR JEFFREY MR#: [id number] : 1980 Acct:[id number] Age/Sex: 43 / F ADM Date: 09/05/24 Loc: US Attending Dr: Gilberto Carlson M.D. Ordering Physician: Lorenzo Carlson M.D. Date of Service: 09/05/24 Procedure(s): US sof t tissue head and neck Accession Number(s): [id number] cc: Lorenzo Carlson M.D. The [place] [id number] Patient Name: SCAR JEFFREY MRN: [id number] date: 1980 Sex: F Assigned Patient Location: US Current Patient Location: Accession/Order Numb er: [id number] Exam Date: 10:33 Report Date: 09/08/2024 12:45 [...] Signed By: 09/08/24 1247 DD/ 1245 TD/TT: Char House Supervisor: BNP Reviewed date:08/26/2024 12:44:27 PM Interpretation: Performing Lab: Notes/Report: [facility] , NT Pro B Type Natriuretic Pept 7.0 <=450.0 pg/mL Performing Lab: see note ML - [facility] LB BNP Reviewed date:04/15/2024 03:18:59 PM Interpretation: Performing Lab: Notes/Report: [facility] , NT Pro B Type Natriuretic Pept 8.0 <=450.0 pg/mL Performing Lab: see note ML - [facility] LB Reason For Referral Reason also possible basal cell Diagnosis 1 Skin tags, multiple acquired (L91.8) Referral Organization [facility] Referring Provider First Name Joe Referring Provider Last Name Diego Referring Provider Speciality Family Med tree Referred Provider Kobe Ramesh Referred Provider Specialty General Surg kenyatta Referral Priority Routine Diagnosis 1 Occult blood positiv e stool (R19.5) Referral Organization [facility] Referring Provider First Name Joe Referring Provider Last Name Diego Referring Provider Speciality [facility] tree Referred Provider Kobe Ramesh Referred Provider Specialty General Surg kenyatta Referral Priority Routine Diagnosis 1 Localized swelling, mass and lump, head (R22.0) Referral Organization [facility] Referring Provider First Name Joe Referring Provider Last Name Diego Referring Provider Speciality [facility] tree Referred Provider Shara Healy Referred Provider Specialty Otolaryngolo gy Referral Priority Routine Medications Medication SIG (Take, Route, Frequency, Duration) Notes Start Date End Date Status risperiDONE 4 MG TAKE 1 TABLET AT BEDTIME for 90 days Active Pyridium 200 MG 1 tablet after meals Orally Three times a day for 2 days 05/23/2024 Active Furosemide 80 MG TAKE 1 TABLET EVERY MORNING for 90 Active Potassium Chloride ER 10 MEQ TAKE 1 CAPSULE TWICE DAILY for 90 Active Famotidine 20 MG TAKE [...] TO 6 HOURS NEEDED for 50 Active Adipex-P 37.5 MG 1 tablet before breakfast Orally Once a day 02/25/2025 Active Ferrous Sulfate 325 (65 Fe) MG 1 tablet Orally twice daily for 30 days 04/16/2024 Not-Taking amLODIPine Besylate 10 MG 1 tablet Orall y Once a day for 90 days 04/18/2024 Not-Taking Vitamin D (Ergocalciferol) 1.25 MG (80943 UT) take 1 capsule by mouth every week for 84 Active Simvastatin 20 MG TAKE 1 TABLET EVERY DAY for 90 Active Advair HFA 230-21 MCG/ACT 2 puffs Inhala tion Twice a day 08/20/2024 Active Plavix 75 MG 1 tablet Orally [...] TABLET EVERY DAY for 90 days Active levoFLOXacin 500 MG 1 tablet Orally Once a day for 10 day(s) 02/09/2025 Active levETIRAcetam 500 MG take 1 tablet by [facility] every 12 hours Orally every 12 hrs for 30 days Active HumuLIN R U-500 (CONCENTRATED) 500 UNIT/ML VIA INSULIN PUMP Subcutaneous for 22 days Active Gvoke HypoPen Active Immunizations Vaccine Route Administration Date Status [...] Notes Problem Gastro-esophageal reflux disease without esophagitis (031608498) Gastro-esophageal reflux disease without esophagitis (K21.9) Active confirmed Problem 339733659 Type 1 diabetes mellitus with diabetic polyneuropathy (E10.42) Active confirmed Problem 854139012 Morbid (severe) obesity due to excess calories (E66.01) Active confirmed Problem Overweight (024617092) Overweight (E66.3) Active confirmed Problem Essential tremor (587673796) Essential tremor (G25.0) Active confirmed Problem 764430107 Age-related nuclear cataract, bilateral (H25.13) Active confirmed Problem Nuclear cataract (44370484) Infantile and juvenile nuclear cataract, unspecified eye (H26.039) Active confirmed Problem 311828573967968 Myopia, bilatera l (H52.13) Active confirmed Problem Astigmatism (61813994) Unspecified astigmatism, bilateral (H52.203) Active confirmed Problem Chronic laryngitis (38470713) Chronic laryngitis (J37.0) Active confirmed Problem 68426797 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 Problem Arthralgia of the upper arm (685137871) Pain in right elbow (M25.521) Active confirmed Problem 03325289 Radiculopathy, cervical region (M54.12) Active confirmed Problem Swelling of head (501113128) Localized swelling, mass and lump, head (R22.0) Active confirmed Problem Closed fracture of upper end of tibia (01097740) Nondisplaced bicondylar fracture of right tibia, initial encounter for closed fracture (S82.144A) Active confirmed Problem Long-term current use of insulin (339523900) 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) Active confirmed Problem Fatigue (96109049) Fatigue (R53.83) Active conf irmed Problem Onychomycosis (755144489) Onychomycosis (B35.1) Active confirmed Problem Senile osteoporosis (15658027) Senile osteoporosis (M81.0) Active confirmed Problem Hypertension (57908255) Hypertension (I10) Active confirmed Problem Carpal tunnel syndrome (42555305) Carpal tunnel syndrome, bilateral (G56.01) Active confirmed Problem Cigarette smoker (48479265) Cigarette smoker (F17.210) Active confirmed Problem Gastroesophageal reflux disease (454743586) GERD (gastroesophageal reflux disease) (K21.9) Active confirmed Problem Seizure (01086347) Seizures (R56.9) Active conf irmed Problem Edema (59045873) Edema (R60.9) Active confirmed Problem Sleep apnea (16782723) Sleep apnea (G47.30) Active confirmed Problem Insomnia (009984557) Insomnia (G47.00) Active confirmed Problem Acid reflux (376376438) Acid reflux (K21.9) Active confirmed Problem Amaurosis fugax of left eye (35986295182701065) Amaurosis fugax of left eye (G45.3) Active confirmed Problem Migraine (35450895) Migraine (G43.909) Active c onfirmed Problem Degeneration of cervical intervertebral disc (25746830) Degenerative disc disease, cervical (M50.30) Active confirmed Problem Foot pain (23945618) Foot pain (M79.673) Active confirmed Problem Pain of right knee region (finding) (039312146141738) Knee pain, right (M25.561) Active confirmed Problem Chronic sinusitis (32793740) Chronic sinusitis (J32.9) Active confirmed Problem Well adult (037883600) Well adult (Z00.00) Active confirmed Problem Family History of Cancer of Colon (Situation) (777090419) Family history of colon cancer (Z80.0) Active confirmed Problem Mass of neck (579717106) Neck mass (R22.1) Active confirmed Problem Tubular adenoma (336184830) Tubular adenoma (D36.9) Active confirmed Problem Diastasis recti (23994727) Diastasis recti (M62.08) Active confirmed Problem Multiple skin tags (056665749) Skin tags, multiple acquired (L91.8) Active confirmed Problem Nevus (8409506660) Nevus (D22.9) Active confirm ed Problem Viral gastroenteritis (162975248) Viral gastroenteritis (A08.4) Active confirmed Problem Hoarse (61136413) Hoarse (R49.0) Active confirm ed Problem Acute urinary tract infection (127139269) Acute UTI (N39.0) Active confirmed Problem Edema (967354970) Fluid retentio n in tissues (R60.9) Active confirmed Problem Mass of head (178800762) Mass of head (R22.0) Active confirmed Problem Lesion of vocal cord (819016158) Lesion of vocal cord (J38.3) Active confirmed Problem 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 (764367463) Diabetic neuropathy associated with type 1 diabetes mellitus (E10.40) Active confirmed Problem Acute embolism a nd thrombosis of superficial vein of left upper extremity (I82.612) Active confirmed Problem 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) (52885453115813196) Type 1 diabetes mellitus with mild nonproliferative diabetic retinopathy without macular edema, bilateral (E10.3293) Active confirmed Problem 24157526385523671 Type 1 diabete s mellitus with stable proliferative diabetic retinopathy, bilateral (E10.3553) Active confirmed Problem 63076888507703780 Type 1 diabete s mellitus with proliferative diabetic retinopathy without macular edema, bilateral (E10.3593) Active confirmed Problem 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, 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) Active confirmed Problem Mixed anxiety and depressive disorder (212792462) Anxiety and depression (F41.8) Active confirmed Problem Benign neoplasm of colon (66613551) Hyperplastic polyp of ascending colon (K63.5) Active confirmed Problem 522275076 Abnormal finding s on diagnostic imaging of other specified body structures (R93.89) Active confirmed Problem COVID-19 (105573723) COVID-19 (U07.1) Active confirmed Problem Acute Laryngitis (7457342) Acute laryngitis, without mention of obstruction (J04.0) Active confirmed Vital Signs Heart Rate 68 /min 04/10/2024 Temperature 96.4 degrees Fahrenheit 04/10/2024 Respiratory Rate 16 /min 04/10/2024 Blood pressure diastolic 54 mm Hg 02/25/2025 Height 66 in 02/25/2025 Blood pressure systolic 128 mm Hg 02/25/2025 Weight 245 lbs 02/25/2025 BMI 39.54 kg/m2 02/25/2025 Procedures Procedure Date Ordered Date Performed Result Body Sit e CARDIO Echocardiogram 02/09/2025 N/A Holter Monitor - 3 days up to 14 days 02/09/2025 N/A Encounters Encounter Location Date Provider Diagnosis [facility] [address] [place] [address] 10/14/2024 Joe priyank [facility] [address] [place] [address] 12/04/2024 Joe Carlson [facility] [address] [place] [address] 01/05/2025 Joe Carlson [facility] [address] [place] [address] 01/26/2025 Joe Carlson [facility] [address] [place] [address] 02/25/2025 Joe Carlson Fatigue R53.83 ; Screening for colon cancer Z12.11 ; Senile osteoporosis M81.0 and Screening for breast cancer Z12.31 [facility] [address] [place] [address] 08/26/2024 [facility]ank [facility] [facility] [address] [facility] [place] [address] 08/26/2024 Joe Hoy Occult blood positiv e stool R19.5 and Diarrhea R19.7 [facility] [address] [facility] [place] [address] 09/08/2024 Joe Hoy Lymph nodes enlarged R59.9 [facility] [address] [facility] [place] [address] 09/28/2024 Joe Hoy Dehydration E86.0 [facility] [address] [facility] [place] [address] 09/29/2024 Joe Hoy Localized swelling, mass and lump, head R22.0 [facility] [address] [facility] [place] [address] 10/10/2024 Joe Hoy Hypertension I10 [facility] [address] [facility] [place] [address] 06/10/2024 Joe Hoy [facility] [address] [facility] [address] 06/12/2024 Joe Hoy [facility] [address] [place] [address] 06/16/2024 Joe Hoy [facility] [address] [facility] [address] 06/20/2024 Joe Hoy Hypertension I10 [facility] [address] [facility] [address] 08/20/2024 Joe Hoy Hypertension I10 [facility] [address] [facility] [address] 08/20/2024 Joe Hoy [facility] [address] [facility] [address] 04/15/2024 Joe Hoy [facility] [address] [place] [address] 04/18/2024 Joe Hoy Hypertension I10 [facility] [address] [facility] [place] [address] 04/21/2024 Joe Hoy [facility] [address] [place] [address] 05/26/2024 Joe Hoy [facility] [address] [place] [address] 06/02/2024 Joe Hoy [facility] [address] [place] [address] 02/09/2025 Joe Hoy Morbid (severe) obes ity due to excess calories E66.01 ; 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, bilateral E10.3593 ; Acute bronchitis, unspecified organism J20.9 ; Amaurosis fugax of left eye G45.3 and Amaurosis fugax, both eyes G45.3 [facility] ([facility]) [address] [place] [address] [place] [address] 04/10/2024 Mer Agudelo Type 1 diabetes mellitus with diabetic polyneuropathy E10.[address] [address] 02/25/2025 Joe Timy Encounter for Medica re annual wellness exam Z00.[address] [address] 04/15/2024 Joe Hoy Hypertension I10 [address] [address] 07/18/2024 Joe Hoy Seizures R56.9 and T ype 1 diabetes mellitus with mild nonproliferative diabetic retinopathy without macular edema, bilateral E10.[address] [address] 02/25/2025 Joe Hoy Well adult Z00.[address] [address] 05/23/2024 Joe Hoy Skin tags, multiple acquired L91.8 ; Nevus D22.9 and Acute UTI N39.0 [facility] [address] [place] [address] 08/26/2024 Joe Hoy Morbid (severe) obes ity due to excess calories E66.01 ; 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, bilateral E10.3593 ; Localized swelling, mass and lump, head R22.0 ; Fatigue R53.83 and Hypertension I10 Assessments Encounter Date Diagnosis (ICD Code) Assessment [...] - R22.0) 10/10/2024 Hypertension (ICD-10 - I10) 02/25/2025 Fatigue (ICD-10 - R53.83) 02/25/2025 Screening for colon cancer (ICD-10 - Z12.11) 02/25/2025 Encounter for Medicare annual wellness exam (ICD-10 - Z00.00) patient presents to the office for a medicare wellness appointment, a total of 20 minutes was spent with the patient, a slums memory test was completed and the patient scored a 26/30, a vision test was completed without difficulty, also a anxiety, depression and safety screening was completed with no concerns 02/25/2025 Well adult (ICD-10 - Z00.00) 02/09/2025 Morbid (severe) obesity due to excess calories (ICD-10 - E66.01) 02/09/2025 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 You may use a humidifier or vaporizer to help keep the drainage moist. Ehnp-spn-gcfhucl Nasal Saline may help the stuffy and runny nose. Use Ibuprofen and or Tylenol as needed for fever, chills, body aches or pain. Children 5 years old should not be given ggza-meg-imuzjlt cough and cold medications such as guaifenesin and dextromethorphan. If you're over age 5, you may try htyw-fjz-ugnnlut cold medications such as guaifenesin and dextromethorphan, [...] work up can be compltede with karishma asa 08/26/2024 Hypertension (ICD-10 - I10) Plan Of Treatment Pending Test Test Name Order Date CMP (COMPLETE METABOLIC PANEL) 4 CMP (COMPLETE METABOLIC PANEL) 4 HEMOGLOBIN A1C (GLYCO) 08/26/2024 HEMOGLOBIN A1C (GLYCO) 04/15/2024 IRON, TOTAL 04/15/2024 IRON, TOTAL 08/26/2024 LIPID PANEL (CHOL/TRIG/HDL/LDL) 08/26/20 24 LIPID PANEL (CHOL/TRIG/HDL/LDL) 04/15/20 24 CBC WITH DIFF 04/15/2024 CBC WITH DIFF 08/26/2024 VITAMIN D, 25 LEVEL (TOTAL) 08/26/2024 XR Sinuses (4 views) * 11/26/2023 CT Facial Bones w/o contrast * US Soft Tissue Neck/Head 11/26/2023 CARDIO Echocardiogram 02/09/2025 BMP w/GFR 09/28/2024 RANDOM URINE PROTEIN 02/25/2025 FECAL OCCULT BLOOD 02/25/2025 Insulin Level 08/26/2024 High Sensitivity Troponin 04/15/2024 High Sensitivity Troponin 08/26/2024 STOOL OCCULT BLOOD 08/26/2024 CBC AUTO DIFF 02/09/2025 CRP 02/09/2025 GLYCOHEMOGLOBIN A1C 02/25/2025 PROF 14(COMP METB) 02/25/2025 SED RATE WESTERGREN 02/09/2025 XR CSPINE MIN 4 VIEWS 12/28/2022 XR DEXA BONE DENSITY 02/25/2025 XR FOOT RT MIN 3 VIEWS 11/02/2023 THYROID PANEL (T4/TSH/FREE T3) 4 THYROID PANEL (T4/TSH/FREE T3) 4 THYROID PANEL (T4/TSH/FREE T3) 5 Holter Monitor - 3 days up to 14 days MG MAMM DIAGNOSTIC 3D JOSELITO CAD 10/24/2023 BI MAMMOGRAM SCREENING TOMOSYNTHESIS JOSELITO ATERAL 02/25/2025 MR BRAIN WO CONTRAST 02/09/2025 Vitamin D 02/25/2025 MR angio head wo con 02/09/2025 MR angio neck wo con 02/09/[address] w/contrast * 09/08/2024 Future Test Test Name Order Date BMP w/GFR 10/06/2024 Next Appt Details Provider Name:Joe Carlson, 09:45:00 AM, [address] [facility] [place], [address], Insurance Providers Payer Name Payer Address Payer Phone Subscriber Number Group Number Insured Name Patient Relationship to Insured Coverage Start Date Coverage End Date [employer] ADV PLAN [address] [address] [place] [address] [id number] Scar Su Self - patient is the insured 0 MEDICAID [place] 2ND INS [address] [place] OF [place], [place] [id number] Scar Su Self - patient is the [...] J37.0 Gastro-esophageal reflux disease without esophagitis 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
--- OUTSIDE RECORDS SUMMARY | 2025-02-27 07:40 | XMS_ITS | Clinical Summary ---
Author Organization Daily Pic tem Address [id number] [address] [place] [address] Care Team Providers Care Office Machine Servicer Apprentice Name Role Phone George Cortez MD Primary Care Provider [phone] Medications lisinopril-hydr oCHLOROthiazide (PRINZIDE,ZESTO RETIC) 20-25 mg [...] file Insurance MEDICARE [place]ICAID [place] Care Teams Office Machine Servicer Apprentice Relationship Specialty Start Date End Date George Cortez MD PCP - General Family Medicine 04/09/19
--- OUTSIDE RECORDS SUMMARY | 2025-02-27 07:40 | XMS_ITS | CCD ---
Author Organization [facility] Care Team Providers Care Supervisor Machining Name Role Phone NOÉHEIMCARMENIL Attending Unavailable EBRAHEIM [...] Unavailable HOY ., DR VENTURA Consulting Unavailable [facility], DR FLORA Davidson Consulting Unavailable HOY ., DR VENTURA Admitting Unavailable HOY ., DR VENTURA Primary Care Unavailable HOY ., DR VENTURA Attending Unavailable HOY ., DR VENTURA Consulting Unavailable [place], DR EDNA Carlson Consulting Unavailable HOY ., [...] Consulting Unavailable Lorenzo Cortez Primary Care Physician Lorenzo Cortez MD Primary Care Provider [phone] NILL, Kobe R Attending Unavailable NILL, Kobe R Attending Unavailable Lorenzo Cortez Referring Unavailable NILL, Kobe R Attending Unavailable NILL, Kobe R Attending Unavailable NILL, Kobe R Admitting Unavailable NILL, Kobe R Attending Unavailable NILL, Kobe R Attending Unavailable Hoy, Lorenzo Referring Unavailable NILL, Kobe R Attending Unavailable NILL, Kobe R Attending Unavailable TIMMIS, SHARA H Attending Unavailable CARLOS, AHMAD F Attending Unavailable CARLOS, AHMAD F Referring Unavailable CARLOS, AHMAD F Attending Unavailable CARLOS, AHMAD F Referring Unavailable NORTHEIM, EMANUEL Attending Unavailable CARLOS, AHMAD F Attending Unavailable Castillo Choudhary Attending Unavailab le Castillo Choudhary Admitting Unavailab Lorenzo Benito Primary Care Unavailable Allergies Allergy Classification Reported Allergen(s) Allergy Type Date of Onset Reaction(s) Facility (3 sources) Acetaminophen / HYDROcodone; Translations: [Vicodin] Drug Allergy 3 [facility] (3 sources) Acetaminophen / HYDROcodone; Translations: [Lortab] Drug Allergy 6 [facility] (1 source) Adhesive agent Drug allergy (disorder) 3 [facility] (3 sources) Amino Acids; Translations: [lisinopril] Drug Allergy 6 [facility] (3 sources) lamoTRIgine; Translations: [LaMICtal] Drug Allergy 3 [facility] (3 sources) Morphine; Translations: [morphine] Drug Allergy 3 [facility] (3 sources) OXcarbazepine; Translations: [Trileptal] Drug Allergy 3 [facility] (1 source) Penicillins Drug allergy (disorder) 3 [facility] (3 sources) Valproate; Translations: [Depakote] Drug Allergy 3 [facility] (12 sources) Acetaminophen / HYDROcodone; Translations: [acetaminophen-hy drocodone] Drug Allergy Edema of pharynx (disorder) [facility] (6 sources) lamoTRIgine; Translations: [lamotrigine] Drug Allergy Cutaneous eruption (morphologic abnormality) [facility] (6 sources) Lisinopril; Translations: [lisinopril] Drug Allergy Edematous skin (disorder) [facility] (16 sources) Morphine; Translations: [morphine] Drug Allergy 4 Vomiting (disorder), GI intolerance [facility] (6 sources) OXcarbazepine; Translations: [oxcarbazepine] Drug Allergy Edema of pharynx (disorder) [facility] (8 sources) Penicillin; Translations: [penicillin] Drug Allergy Cutaneous eruption (morphologic abnormality) [facility] (6 sources) Valproate; Translations: [divalproex sodium] Drug Allergy Edema of pharynx (disorder) [facility] (10 sources) Codeine Drug Allergy 4 [facility] (10 sources) HYDROcodone Drug Allergy 4 [facility] Healthcare Work Phone: (10 sources) Lamotrigine Allergy to substance 4 Rash [facility] (10 sources) Oxcarbazepine Allergy to substance 4 [facility] (10 sources) Penicillin G Drug Allergy 4 Hives [facility] (10 sources) Penicillins Propensity to adverse reactions 4 [facility] (10 sources) Valproate Drug Allergy 4 [facility] Medications Current Medications Medication Drug Class(es) Dates Sig (Normalized) Sig (Original) Advair HFA 230 mcg-21 mcg/inh inhalation aerosol with adapter (2 sources) Start: 09-12-2024 take 2 puff(s) by inhalation twice daily Advair HFA 230 mcg-21 mcg/inh inhalation aerosol with adapter 2 puff(s), Inhalation, BID Start Date: 09/12/24 Status: Ordered Repeat number: 1 Start: 09-12-2024 take 2 puff(s) by in halation twice daily Advair HFA 230 mcg-21 mcg/inh inhalation aerosol with adapter 2 puff(s), Inhalation, BID Start Date: 09/12/24 Status: Ordered Albuterol (16 sources) beta2-Adrenergic Agonist Start: 05-28-2024 take 2 puff(s) by inhalation every six hours Albuterol (Eqv-ProAir HFA) 2 puff(s), Inhalation, q6hr Shortness of breath or wheezing, Refill(s) 0 Start Date: 05/28/24 Status: Ordered Repeat number: 1 Start: 05-28-2024 take 2 puff(s) by in halation every six hours Albuterol (Eqv-ProAir HFA) 2 puff(s), Inhalation, q6hr Shortness of breath or wheezing, Refill(s) 0 Start Date: 05/28/24 Status: Ordered take 2 puff(s) by in halation every six hours albuterol HFA (Ventolin HFA) 90 mcg/act inhaler Inhale 2 puffs every 6 (six) hours if needed Active amLODIPine 10 mg oral tablet (15 sources) Dihydropyridine Calcium Channel Lester Start: 09-12-2024 take 1 tablet by mouth once daily amLODIPine 10 mg Tab 10 mg = 1 tab(s), Oral, Daily, Refills(s) 0 Start Date: 09/12/24 Status: Ordered Repeat number: 1 Start: 05-28-2024 take 1 tablet by liz once daily amLODIPine 5 mg Tab 5 mg = 1 tab(s), Oral, Daily, Refills(s) 0 Start Date: 05/28/24 Status: Ordered aspirin 81 mg delayed release oral tablet (16 sources) Platelet Aggregation Inhibitor, Nonsteroidal Anti-inflammatory Drug Start: 05-20-2021 take 1 tablet by mouth once daily aspirin 81 mg Oral EC Tab 81 mg = 1 tab(s), Oral, Daily, Refills(s) 0 Start Date: 05/20/21 Status: Ordered Repeat number: 1 24 hr buPROPion hydrochloride 300 mg extended release oral tablet (16 sources) Aminoketone Start: 03-27-2019 take 1 tablet by mouth once daily Wellbutrin XL 300 mg/24 hours Tab-ER 300 mg = 1 tab(s), Oral, Daily Start Date: 03/27/19 Status: Ordered Repeat number: 1 citalopram 40 mg oral tablet (16 sources) Serotonin Reuptake Inhibitor Start: 05-28-2024 take 1 tablet by mouth once daily CeleXA 40 mg Tab 40 mg = 1 tab(s), Oral, Daily, Refills(s) 0 Start Date: 05/28/24 Status: Ordered Repeat number: 1 take 2 tablets by mouth once latasha ly citalopram (CeleXA) 20 MG tablet Take 40 mg by mouth 1 (one) time each day at the same time Active Continuous Glucose Senior Bi Developer (Dexcom G7 Senior Bi Developer) device (7 sources) Start: 09-01-2024 Continuous Glucose Senior Bi Developer (Dexcom G7 Senior Bi Developer) device Indications: Type 1 diabetes mellitus with hyperglycemia (HCC) (CMS/HCC) 1 kit continuously 1 each 1 09/01/2024 Active Continuous Glucose Sensor (Dexcom G7 Sensor) misc (7 sources) Start: 09-01-2024 Continuous Glucose Sensor (Dexcom G7 Sensor) misc Indications: Type 1 diabetes mellitus with hyperglycemia (HCC) (CMS/HCC) 1 kit Every 10 (ten) days 9 each 1 09/01/2024 Active ergocalciferol 1.25 mg oral capsule (10 sources) Provitamin D2 Compound take 1 tablet by mouth every week Vitamin D, Ergocalciferol, 05911 units capsule Take 1 tablet by mouth 1 (one) time per week Active famotidine 20 mg oral tablet (16 sources) Histamine-2 Receptor Antagonist Start: 03-27-2019 take 1 tablet by mouth twice daily famotidine 20 mg Tab 20 mg = 1 tab(s), Oral, BID Start Date: 03/27/19 Status: Ordered Repeat number: 1 take 1 tablet by mouth once blake y famotidine (Pepcid) 20 MG tablet Take 20 mg by mouth Daily Active ferrous sulfate 325 mg oral tablet (6 sources) Start: 05-28-2024 take 1 tablet by mouth twice daily ferrous sulfate 325 mg Tab 325 mg = 1 tab(s), Oral, BID, Refills(s) 0 Start Date: 05/28/24 Status: Ordered Repeat number: 1 120 actuat fluticasone propionate 0.23 mg/actuat / salmeterol 0.021 mg/actuat metered dose inhaler (10 sources) Corticosteroid, beta2-Adrenergi c Agonist take 2 puff(s) by inhalation in the morning fluticasone-salmet ana maria (Advair) 230-21 MCG/ACT inhaler Inhale 2 puffs in the morning and 2 puffs before bedtime. Rinse mouth with water after use to reduce aftertaste and incidence of candidiasis. Do not swallow.. 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 (CMS/HCC) CHANGE POD EVERY 24 HOURS DIRECTED 90 each 3 06/10/2024 Active insulin, regular, human 500 unt/ml injectable solution (20 sources) Insulin Start: 10-30-2024 inject 450 [IU] into the eye(s) once insulin regular (HumuLIN R) 500 UNIT/ML CONCENTRATED injection Indications: 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 (CMS/HCC) USE 450 units TOTAL daily per insulin pump 100 mL 11 10/30/2024 Active Start: 06-30-2024 End: 10-30-2024 inject 450 [IU] into the eye(s) once insulin regular (HumuLIN R) 500 UNIT/ML CONCENTRATED injection Indications: 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 (CMS/HCC) USE 450 units TOTAL daily per insulin pump 100 mL 11 06/30/2024 10/30/2024 Discontinued (Reorder) Start: 06-23-2024 inject 450 [IU] into the [...] insulin pump Start Date: 05/18/21 Status: Ordered Repeat number: 1 levETIRAcetam 500 mg oral tablet (16 sources) Start: 05-18-2021 take 1 tablet by mouth twice daily levetiracetam 500 mg Tab 500 mg = 1 tab(s), Oral, BID Start Date: 05/18/21 Status: Ordered Repeat number: 1 levothyroxine sodium 0.1 mg oral tablet (16 sources) l-Thyroxi ne Start: 05-18-2021 take 1 tablet by mouth once daily levothyroxine 100 mcg (0.1 mg) Tab 100 mcg = 1 tab(s), Oral, Daily Start Date: 05/18/21 Status: Ordered Repeat number: 1 take 1 tablet by mouth before me altime levothyroxine (Synthroid) 100 MCG tablet Take 100 mcg by mouth in the morning. Take before meals. Active LORazepam 1 mg oral tablet (16 sources) Benzodiazepine Start: 03-27-2019 take 1 tablet by mouth twice daily as needed for anxiety LORazepam 1 mg Tab 1 mg = 1 tab(s), Oral, BID, PRN for anxiety Start Date: 03/27/19 Status: Ordered Repeat number: 1 take 1 tablet by mouth every eig ht hours LORazepam (Ativan) 1 MG tablet Take 1 mg by mouth every 8 (eight) hours Active losartan potassium 100 mg oral tablet (16 sources) Angiotensin 2 Receptor Lester Start: 05-28-2024 take 1 tablet by mouth once daily losartan 100 mg Tab 100 mg = 1 tab(s), Oral, Daily, Refills(s) 0 Start Date: 05/28/24 Status: Ordered Repeat number: 1 take 2 tablets by mouth once latasha ly losartan (Cozaar) 50 MG tablet Take 100 mg by mouth 1 (one) time each day at the same time Active take 1 tablet by mouth once blake y losartan (Cozaar) 50 MG tablet Take 50 mg by mouth 1 (one) time each day at the same time Active metFORMIN hydrochloride 1000 mg oral tablet (20 sources) Biguanide Start: 10-30-2024 End: 04-28-2025 take 1 tablet by mouth in the morning metFORMIN (Glucophage) 1000 MG tablet Indications: Type 1 diabetes mellitus with hyperglycemia (HCC) (CMS/HCC) Take 1 tablet (1,000 mg) by mouth in the morning and 1 tablet (1,000 mg) in the evening. Take with meals. 180 tablet 1 10/30/2024 04/28/2025 Active Start: 06-23-2024 End: 10-30-2024 metFORMIN (Glucophage) 500 M G tablet Indications: Type 1 diabetes mellitus with hyperglycemia (HCC) (CMS/HCC) TAKE 2 TABLETS IN THE MORNING AND 2 TABLETS IN THE EVENING. TAKE WITH MEALS. 360 tablet 3 09/02/2024 10/30/2024 Discontinued (Dose adjustment) Start: 03-27-2019 take 1 tablet by liz th once daily metformin 500 mg Tab 500 mg = 1 tab(s), Oral, Daily Start Date: 03/27/19 Status: Ordered Repeat number: 1 omeprazole 40 mg delayed release oral capsule (16 sources) Proton Pump Inhibitor Start: 03-27-2019 take 1 capsule by mouth once daily omeprazole 40 mg Cap-DR 40 mg = 1 cap(s), Oral, Daily Start Date: 03/27/19 Status: Ordered Repeat number: 1 risperiDONE 2 mg oral tablet (16 sources) Atypical Antipsychotic Start: 03-27-2019 take 1 tablet by mouth at bedtime Risperdal 2 mg Tab 2 mg = 1 tab(s), Oral, Bedtime Start Date: 03/27/19 Status: Ordered Repeat number: 1 simvastatin 20 mg oral tablet (16 sources) HMG-CoA Reductase Inhibitor Start: 05-18-2021 take 1 tablet by mouth once daily at bedtime simvastatin 20 mg Tab 20 mg = 1 tab(s), Oral, Once a day (at bedtime) Start Date: 05/18/21 Status: Ordered Repeat number: 1 Vitamin D (6 sources) Start: 04-09-2019 take 1 capsule by mouth every week Vitamin D = 1 cap(s), Oral, qWeek, Refills(s) 0 Start Date: 04/09/19 Status: Ordered Repeat number: 1 Start: 04-09-2019 take 1 capsule by [facility] Vitamin D = 1 cap(s), Oral, qWeek, Refills(s) 0 Start Date: 04/09/19 Status: Ordered Completed/Discontinued Medications Medication Drug Class(es) Dates Sig (Normalized) Sig (Original) potassium chloride 10 meq oral tablet (16 sources) Start: 03-27-2019 take 1 tablet by mouth twice daily potassium chloride 10 mEq ER Tab 10 mEq = 1 tab(s), Oral, BID Start Date: 03/27/19 Status: Ordered Repeat number: 1 potassium chlori de CR (Klor-Con) 10 MEQ ER tablet 10 mEq in the morning and 10 mEq before bedtime. Active Problems Active Problems Problem Classification Problem Date Documented Da te Episodic/Chronic Abdominal pain (16 sources) Epigastric pain; Translations: [Epigastric pain] Onset: 4 05-28-2024 Episodic Administrative/social admission (4 sources) Patient encounter status; Translations: [Dietary counseling and surveillance] 06-23-2024 Episodic Anxiety disorders (20 sources) Anxiety; Translations: [Mixed anxiety and depressive disorder] Onset: 4 03-27-2019 Chronic Congestive heart failure; nonhypertensive (1 source) Unspecified diastolic (congestive) heart failure; Translations: [UNSPECIFIED DIASTOLIC HEART FAILURE] Onset: 3 Chronic Diabetes mellitus with complications (20 sources) 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; Translations: [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] Onset: 2 Chronic Diabetes mellitus without complication (20 sources) Type 1 diabetes mellitus; Translations: [Type 2 diabetes mellitus without complication] Onset: 2 05-20-2021 Chronic Diabetes mellitus without complication (4 sources) Insulin pump present; Translations: [Presence of insulin pump (external) (internal)] 06-23-2024 Episodic Diseases of mouth; excluding dental (10 sources) Mucocele of salivary gland; 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] Onset: 3 Episodic Epilepsy; convulsions (20 sources) Epilepsy; Translations: [Epilepsy, unspecified, not intractable, without status epilepticus] Onset: 2 12-18-2023 Chronic Epilepsy; convulsions (6 sources) Seizure disorder 03-27-2019 Episodic Esophageal disorders (20 sources) Gastroesophageal reflux disease; Translations: [Laryngopharyngeal reflux] Onset: 4 03-27-2019 Chronic Essential hypertension (20 sources) Essential (primary) hypertension; Translations: [Hypertensive disorder] Onset: 2 Chronic Genitourinary symptoms and ill-defined conditions (4 sources) Microalbuminuria; Translations: [Proteinuria, unspecified] 06-23-2024 Episodic Headache; including migraine (16 sources) Migraine; Translations: [Migraine, unspecified, not intractable, without status migrainosus] Onset: 4 05-18-2021 Chronic Hypertension with complications and secondary hypertension (5 sources) Hypertensive heart disease with heart failure; Translations: [HTN HEART DISEASE W/HEART FAIL] Onset: 2 Chronic Mood disorders (20 sources) Bipolar I disorder; Translations: [Bipolar disorder, unspecified] Onset: 2 05-28-2024 Chronic Nausea and vomiting (16 sources) Nausea; Translations: [Nausea] Onset: 4 05-28-2024 Episodic Neoplasms of unspecified nature or uncertain behavior (9 sources) Neoplasm of uncertain behavior of skin; Translations: [Neoplasm of uncertain behavior of skin] Onset: 4 Episodic Nutritional deficiencies (5 sources) Vitamin D deficiency, unspecified; Translations: [Vitamin D deficiency] Onset: 3 06-23-2024 Chronic Other and unspecified benign neoplasm (16 sources) Benign neoplasm of transverse colon; Translations: [Benign neoplasm of transverse colon] Onset: 4 06-22-2021 Episodic Other and unspecified benign neoplasm (3 sources) History of polyp of colon; Translations: [Personal history of adenomatous and serrated colon polyps] Onset: 5 Episodic Other connective tissue disease (16 sources) Diastasis recti; Translations: [Separation of muscle (nontraumatic), other site] Onset: 4 04-09-2019 Episodic Other gastrointestinal disorders (16 sources) Irritable bowel syndrome; Translations: [Irritable bowel syndrome without diarrhea] Onset: 4 06-22-2021 Chronic Other gastrointestinal disorders (16 sources) Abdominal bloating; Translations: [Abdominal distension (gaseous)] Onset: 4 05-28-2024 Episodic Other gastrointestinal disorders (1 source) Abnormal feces; Translations: [Other fecal abnormalities] Onset: 5 Episodic Other gastrointestinal disorders (4 sources) Occult blood in stools 09-12-2024 Episodic Other hereditary and degenerative nervous system conditions (6 sources) Essential tremor 05-28-2024 Chronic Other nutritional; endocrine; and metabolic disorders (20 sources) Body mass index 30+ - obesity; Translations: [Obesity, unspecified] Onset: 4 04-09-2019 Chronic Other nutritional; endocrine; and metabolic disorders (2 sources) Obese class III 09-23-2024 Chronic Other skin disorders (3 sources) Hypertrophic condition of skin; Translations: [Other hypertrophic disorders of the skin] Onset: 4 Episodic Other skin disorders (16 sources) Epidermoid cyst of skin of face; Translations: [Epidermal cyst] Onset: 4 04-09-2019 Episodic Other skin disorders (6 sources) Multiple skin tags 06-03-2024 Episodic Other upper respiratory disease (16 sources) Chronic laryngitis; Translations: [Chronic laryngitis] Onset: 4 Resolved: 4 05-28-2024 Chronic Other upper respiratory disease (6 sources) Lesion of vocal cord 05-28-2024 Episodic Other upper respiratory infections (10 sources) Chronic sinusitis; Translations: [Chronic sinusitis, unspecified] Onset: 4 12-18-2023 Chronic Phlebitis; thrombophlebitis and thromboembolism (6 sources) H/O: Deep vein thrombosis 05-28-2024 Episodic Residual codes; unclassified (16 sources) Sleep apnea; Translations: [Sleep apnea, unspecified] Onset: 4 05-25-2021 Chronic Residual codes; unclassified (16 sources) Family history of cancer of colon; Translations: [Family history of malignant neoplasm of digestive organs] Onset: 4 05-20-2021 Episodic Spondylosis; intervertebral disc disorders; other back problems (16 sources) Cervical disc disorder; Translations: [Cervical disc disorder, unspecified, unspecified cervical region] Onset: 4 03-27-2019 Chronic Spondylosis; intervertebral disc disorders; other back problems (7 sources) Radiculopathy, cervical region; Translations: [Cervical radiculopathy] Onset: 3 05-28-2024 Episodic Substance-related disorders (6 sources) Cigarette smoker 05-28-2024 Chronic Thyroid disorders (6 sources) Hypothyroidism 05-28-2024 Chronic Unclassified (6 sources) Long-term current use of insulin 03-27-2019 Past or Other Problems Problem Classification Problem Date Documented Da te Episodic/Chronic Deficiency and other anemia (1 source) Anemia, unspecified; Translations: [ANEMIA UNSPECIFIED] Onset: 03-20-2022 Episodic Lymphadenitis (12 sources) Cervical lymphadenopathy; Translations: [Localized enlarged lymph nodes] Onset: 12-24-2023 12-24-2023 Episodic Other aftercare (1 source) senior living (current) use of insulin; Translations: [SENIOR LIVING CURRENT USE OF INSULIN] Onset: 10-09-2022 Episodic Other aftercare (14 sources) Long-term current use of insulin; Translations: [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] Onset: 01-17-2024 01-17-2024 Episodic Other connective tissue disease (10 sources) Pain in right arm; Translations: [Pain in right arm] Onset: 08-02-2020 01-17-2024 Episodic Other lower respiratory disease (5 sources) Other forms of dyspnea; Translations: [OTHER FORMS OF DYSPNEA] Onset: 04-03-2022 Episodic Other non-traumatic joint disorders (10 sources) Pain of right shoulder joint; Translations: [Pain in right shoulder] Onset: 08-02-2020 01-17-2024 Episodic Other non-traumatic joint disorders (10 sources) Pain in right knee; Translations: [Pain in joint, lower leg] Onset: 08-02-2020 01-17-2024 Episodic Other skin disorders (10 sources) Mass of head; Translations: [Localized swelling, mass and lump, head] Onset: 12-18-2023 12-18-2023 Episodic Other upper respiratory disease (10 sources) Chronic hoarseness; Translations: [Dysphonia] Onset: 12-18-2023 12-18-2023 Episodic Residual codes; unclassified (4 sources) Edema, unspecified; Translations: [EDEMA UNSPECIFIED] Onset: 03-30-2022 Episodic Residual codes; unclassified (10 sources) Insomnia; Translations: [Insomnia, unspecified] Onset: 08-19-2012 12-18-2023 Episodic Results Test Name Value Interpretation Reference Range Facility Ambulatory Visit Summaryon 0 01-27-2025 Ambulatory Visit Summary Ambulatory Visit Summary SCAR JEFFREY :1980 Visit Date:01/27/2025 Ambulatory Visit Instructions Your Care Team Attending [...] simvastatin (simvastatin 20 mg Tab) Procedures Performed Excision of skin tag (12/23/2024), Excision of skin tag (06/18/2024), Colonoscopy (06/08/2021), Arthroscopic repair of rotator cuff., Caesarean section, Carpal tunnel release, section, Cholecystectomy, Cystectomy, Excision of vocal cord nodule, Insertion of insulin pump, Salpingo-oophorectomy, complete or partial, unilateral or bilateral (separate procedure), Total abdominal hysterectomy (corpus and cervix), with or without removal of tube(s), with or without removal of ovary(s);. What to do next Scheduled Follow-Up Appointments Sunday 1:40 PM EDT With: AILYN CHENG, Kobe Davidson Where: [facility] [address], [address], [place] [id number]- Medications What How Much When Instructions Unchanged [...] (Edema of throat) LaMICtal (Rash) Lortab (VOMITING) Tr (more content not included)... Normal [facility] Ambulatory Visit Summary Ambulatory Visit Summary SCAR JEFFREY :1980 Visit Date:01/27/2025 Ambulatory Visit Instructions Your Care Team Attending [...] simvastatin (simvastatin 20 mg Tab) Procedures Performed Excision of skin tag (12/23/2024), Excision of skin tag (06/18/2024), Colonoscopy (06/08/2021), Arthroscopic repair of rotator cuff., [...] treatment for. Anxiety Bipolar I disorder BMI (more content not included)... Normal [facility] General Surgery Office/Clini c Noteon 01-27-2025 General Surgery Office/Clinic Note General Surgery Office/Clinic Note Chief Complaint skin tag removal HPI Staff 44 year old female presents for removal of multiple skin tags. History of Present Illness 44 yo female with h/o extensive skin tags, presents for excision of skin tags; patient has right axillary skin tag and bilateral neck skin tags that are irritated, would like excision. Review of Systems PHQ Score Initial Depression [...] are negative or noncontributory. Physical Exam skin: right axillary skin tag, 5 mm base, multiple bilateral neck skin tags, 2-4 mm. Assessment/Plan 1. Skin tags, multiple acquired (L91.8: Other hypertrophic disorders of the skin) excised with cautery under local anesthesia, total of 2 ml 1 % lidocaine; tolerated well; call with problems/questions. Follow-up No qualifying data [...] Postprandial epigastric pain Postprandial nausea Procedure/Surgical History Excision of skin tag (12/23/2024), Excision of skin tag (06/18/2024), Colonoscopy (06/08/2021), Arthroscopic repair of rotator cuff., Caesarean section, Carpal tunnel release, section, Cholecystectomy, Cystectomy, Excision of vocal cord nodule, Insertion of insulin pump, Salpingo-oophorectomy, complete or partial, unilateral or bilateral (separate procedure), Total abdominal hysterectomy (corpus and cervix), with or without removal of tube(s), with or without removal of ovary(s);. Medications Advair HFA 230 mcg-21 mcg/inh inhalation aerosol with adapter, 2 puff(s), Inhalation, BID Albuterol (Eqv-ProAir HFA), 2 puff(s), Inhalation, q6hr, PRN amLODIPine 10 mg Tab, 10 mg= 1 tab(s), Oral, Daily aspirin 81 [...] of throat) lisinopril (Edematous skin) morphine (Vomiting) penici (more content not included)... Normal [facility] Comment on above: Result Comment: Elec tronically Signed By: AILYN CHENG, Kobe Davidson\.br\Date and Time Signed: 01/27/25 14:10 EDT Ambulatory Visit Summaryon 0 12-23-2024 Ambulatory Visit Summary Ambulatory Visit Summary SCAR JEFFREY :1980 Visit Date:12/23/2024 Ambulatory Visit Instructions Your Care Team Attending [...] to do next Scheduled Follow-Up Appointments Sunday 1:40 PM EDT With: AILYN CHENG, Kobe Davidson Where: [facility] [address], [address], [place] [id number]- Medications What How Much When Instructions Unchanged [...] of throat) Vicodin (Edema of throat) lisinopril (Ed (more content not included)... Normal [facility] General Surgery Office/Clini c Noteon 12-23-2024 General Surgery Office/Clinic Note General Surgery Office/Clinic Note Chief Complaint skin tag removal HPI Staff 44 year old female presents for removal of multiple skin tags. 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 Physical Exam skin: multiple skin tags bilateral neck, 2 mm-5 mm Assessment/Plan 1. Skin tags, multiple acquired (L91.8: Other hypertrophic disorders of the skin) excised under local anesthesia using electrocautery, total of 5 ml of 1% lidocaine used for 30 skin tags; tolerated well; keep sites clean and dry, wash daily with soap and water; call with problems/questions. Follow-up No qualifying data [...] or without removal of ovary(s);. Medications Advair HFA 230 mcg-21 mcg/inh inhalation aerosol with adapter, 2 puff(s), Inhalation, BID Albuterol (Eqv-ProAir HFA), 2 puff(s), Inhalation, q6hr, PRN amLODIPine 10 mg Tab, 10 mg= 1 tab(s), Oral, Daily aspirin 81 [...] lisinopril (Edematous skin) morphine (Vomiting) penicillin (Rash) So (more content not included)... Normal [facility] Comment on above: Result Comment: Elec tronically Signed By: AILYN CHENG, Kobe R\alon\Date and Time Signed: 12/23/24 16:09 EDT Glucose (Bld) [Mass/Vol]on 0 10-30-2024 Glucose Blood, POC 241 mg/dL [facility] - Hematology and Cell countson 10-30-2024 HbA1c (Bld) [Mass fraction] 8.1 % [facility] No Panel Informationon 10-30 Interpretation and review of laboratory results Abnormal [facility] Ambulatory Visit Summaryon 0 09-23-2024 Ambulatory Visit [...] (Edematous sk (more content not included)... Normal [facility] Provider Letteron 09-01-2024 Provider Letter Provider Letter September 01, 2024 SCAR JEFFREY [address] [address] : 1980 Dear Ms. Jeffrey, We have been trying to reach you with no success regarding a referral from Dr Cortez. It is important that you return our call upon receiving this letter. Also, at the time of your call, please provide us with your current information. Thank you for your prompt attention to this matter. Sincerely, [facility] [phone] Normal [facility] Surgical Pathology Reporton 06-25-2024 Surgical Pathology Report [facility] [address] [place] [address]- Surgical Pathology Report Collected Date/Time: 06/18/2024 15:32 [...] and entirely submitted in one cassette. (DC) DC:[facility] Microscopic Description Microscopic examination performed unless gross only specified. Multiple levels are microscopically examined. Normal [facility] Comment on above: Performed By: #### [id number] #### [facility] [address] [place] [address] Ambulatory Visit Summaryon 1 Ambulatory Visit Summary Ambulatory Visit Summary SCAR JEFFREY :1980 Visit Date:06/24/2024 Ambulatory Visit Instructions Your Care Team Attending Physician - AILYN CHENG, Kobe Davidson Primary Care Physician - Lorenzo Cortez MD This Is Your Medications List albuterol (Albuterol [...] for choosing us for your care. Mal[facility] General Surgery Office/Clini c Noteon [...] Years., 06/03/20 (more content not included)... Normal [facility] Comment on above: Result Comment: Elec tronically Signed By: AILYN CHENG, Kobe Davidson\.br\Date and Time Signed: 06/24/24 14:17 EDT Glucose (Bld) [Mass/Vol]on 1 Glucose Blood, POC 361 mg/dL [facility] HbA1c (Bld) [Mass fraction]o n 06-23-2024 [facility] - Hematology and Cell countson 06-23-2024 HbA1c (Bld) [Mass fraction] 7.9 % [facility] Ambulatory Visit Summaryon 1 Ambulatory [...] Follow-Up Appointments Sunday 2:00 PM EDT With: AILYN CHENG, Kobe Davidson Where: [facility], [address], [place] [address]- Medications What How Much When Instructions Unchanged [...] Diastasis recti (more content not included)... Normal [facility] General Surgery Office/Clini c Noteon 06-18-2024 [...] ER Tab (more content not included)... Normal [facility] Comment on above: Result Comment: Elec [...] Follow-Up Appointments Sunday 3:00 PM EDT With: Kobe ROBERTSON MD Where: [facility] [address], [address], [place] [address]- Medications What How Much When Instructions Unchanged [...] (Rash) Pro (more content not included)... Normal [facility] CREATININEon 01-22-2023 Creatinine [Mass/Vol] 0.98 mg/dL Normal 0.55-1.02 [facility] Comment on above: Performed By: #### C NILSON #### [facility] [address] [place] [address] Dr. Keeley Hoskins EGFR-AF KUWAITI >60 Normal >=60 [facility] Comment on above: Performed By: #### C NILSON #### [facility] [address] [place] [address] [address] Keeley Hoskins EGFR-NON AF KU[place]I >60 Normal >=60 [facility] Comment on above: Performed By: #### C NILSON #### [facility] [address] [place] [address] NECK ST W CONon CT NECK ST W CON EXAMINATION: CT [...] by: EDNA GOMEZ Date: 2023-01-22 11:08 Normal [facility] MRI CSPINE WO CONon 01-23-20 MRI CSPINE WO CON EXAMINATION: MRI CSP [...] by: EDNA GOMEZ Date: 2023-01-22 11:04 Normal [facility] CT FACIAL BONES WO CONon CT [...] FLORA DERAS Date: 2023-01-04 07:25 Normal [facility] XR CSPINE MIN 4 VIEWSon 12-10 [...] by: FLORA DERAS Date: 2023-01-04 07:12 Normal [facility] C-PEPTIDE, SERUMon C-Peptide, Serum <0.1 Critically low 1.1-4.4 [facility] Comment on above: Result Comment: C-Pe ptide reference interval is for fasting patients. Performed By: #### C PEPT #### [facility] [address] [place] [address] [address] Keeley Hoskins BNPon 10-06-2022 Natriuretic peptide B (Bld) [Mass/Vol] 20.0 pg/mL Normal <=450.0 [facility] Comment on above: Performed By: #### R ENAL, LIPID #### [facility] [address] [place] [address] [address] Keeley Hoskins LIPID PROFILEon 10-06-2022 CHOL-HDL RATIO NORM SEE BELOW Normal [facility] Comment on above: Result Comment: 3.3 - 4.4 LOW RISK 4.4 - 7.1 AVERAGE RISK 7.1 - 11.0 MODERATE RISK >11.0 HIGH RISK Performed By: #### R ENAL, LIPID #### [facility] [address] [place] [address] Dr. Keeley Hoskins Cholesterol [Mass/Vol] 156 mg/dL Normal <=200 [facility] Comment on above: Performed By: #### R ENAL, LIPID #### [facility] [address] [place] [address] [address] Keeley Hoskins Cholesterol in HDL [Mass/Vol] 32 mg/dL Critically low 40-60 [facility] Comment on above: Performed By: #### R ENAL, LIPID #### [facility] [address] [place] [address] [address] Keeley Hoskins Cholesterol in LDL [Mass/Vol] 71.8 mg/dL Normal [facility] Comment on above: Performed By: #### R ENAL, LIPID #### [facility] [address] [place] [address] [address] Keeley Hoskins Cholesterol.total/C holesterol in HDL [Mass ratio] 4.9 {ratio} Normal [facility] Comment on above: Performed By: #### R ENAL, LIPID #### [facility] [address] [place] [address] [address] Keeley Hoskins HDL NORMAL > or = 60 mg/dl - LO W CARDIOVASCULAR RISK <40 mg/dl - HIGH CARDIOVASCULAR RISK Normal [facility] Comment on above: Performed By: #### R ENAL, LIPID #### [facility] [address] [place] [address] [address] Keeley Hoskins LDL CALC NORMAL SEE BELOW Normal [facility] Comment on above: Result Comment: <100 mg/dl OPTIMAL 100 - 129 mg/dl NEAR OR ABOVE OPTIMAL 130 - 159 mg/dl BORDERLINE HIGH 160 - 189 mg/dl HIGH >190 mg/dl VERY HIGH Performed By: #### R ENAL, LIPID #### [facility] [address] [place] [address] [address] Keeley Hoskins Triglyceride [Mass/Vol] 261 mg/dL Critically high <=150 [facility] Comment on above: Performed By: #### R ENAL, LIPID #### [facility] [address] [place] [address] [address] Keeley Hoskins VLDL CALC 52.2 mg/dL Normal [facility] Comment on above: Performed By: #### R ENAL, LIPID #### [facility] [address] [place] [address] [address] Keeley Hoskins MICROALB CREAT RATIO RANDOMo n 01-27-2023 mALB 4.2 mg/L Normal <=30.0 [facility] Comment on above: Performed By: #### M CRR #### [facility] [address] [place] [address] [address] Keeley Hoskins URINE CREAT <13.00 Critically low 20.00-300.00 [facility] Comment on above: Performed By: #### M CRR #### [facility] [address] [place] [address] [address] Keeley Hoskins RENAL FUNCTION PANELon 10-06 Albumin [Mass/Vol] 4.0 g/dL Normal 3.4-5.0 [facility] Comment on above: Performed By: #### R ENLISSY, LIPID #### [facility] [address] [place] [address] Dr. Keeley Hoskins Calcium [Mass/Vol] 9.3 mg/dL Normal 8.5-10.1 [facility] Comment on above: Performed By: #### R ENLISSY, LIPID #### [facility] [address] [place] [address] [address] Keeley Hoskins Chloride [Moles/Vol] 101 mmol/L Normal 98-107 [facility] Comment on above: Performed By: #### R ENLISSY, LIPID #### [facility] [address] [place] [address] Dr. Keeley Hoskins CO2 [Moles/Vol] 28.9 mmol/L Normal 21.0-32.0 [facility] Comment on above: Performed By: #### R ENAL, LIPID #### [facility] [address] [place] [address] Dr. Keeley Hoskins Creatinine [Mass/Vol] 0.81 mg/dL Normal 0.55-1.02 [facility] Comment on above: Performed By: #### R ENAL, LIPID #### [facility] [address] [place] [address] Dr. Keeley Hoskins EGFR-AF KU[place]I >60 Normal >=60 [facility] Comment on above: Performed By: #### R ENAL, LIPID #### [facility] [address] [place] [address] [address] Keeley Hoskins EGFR-NON AF KU[place]I >60 Normal >=60 [facility] Comment on above: Performed By: #### R ENAL, LIPID #### [facility] [address] [place] [address] [address] Keeley Hoskins Glucose [Mass/Vol] 123 mg/dL Critically high 74-106 [facility] Comment on above: Performed By: #### R ENAL, LIPID #### [facility] [address] [place] [address] [address] Keeley Hoskins Phosphate [Mass/Vol] 3.9 mg/dL Normal 2.6-4.7 [facility] Comment on above: Performed By: #### R ENAL, LIPID #### [facility] [address] [place] [address] [address] Keeley Hoskins Potassium [Moles/Vol] 4.4 mmol/L Normal 3.5-5.1 [facility] Comment on above: Performed By: #### R ENAL, LIPID #### [facility] [address] [place] [address] [address] Keeley Hoskins Sodium [Moles/Vol] 140 mmol/L Normal 136-145 [facility] Comment on above: Performed By: #### R ENLISSY, LIPID #### [facility] [address] [place] [address] [address] Keeley Hoskins Urea nitrogen [Mass/Vol] 12.0 mg/dL Normal 7.0-18.0 [facility] Comment on above: Performed By: #### R ENAL, LIPID #### [facility] [address] [place] [address] [address] Keeley Hoskins VITAMIN D 25 OHon 10-06-2022 VIT D 25-OH 37.8 ng/mL Normal [facility] Comment on above: Performed By: #### R ENAL, LIPID #### [facility] [address] [place] [address] [address] Keeley Hoskins VIT D RANGES SEE BELOW Normal [facility] Comment on above: Result Comment: <20 ng/mL Vit D deficient 20 - <30 ng/mL Vit D insufficient 30 - 100 ng/mL Vit D sufficient >100 ng/mL Potential Toxicity Performed By: #### R ENAL, LIPID #### [facility] [address] [place] [address] Dr. Keeley Hoskins NM STRESS/REST MULTIon 04-17 NM STRESS/REST MULTI Patient: SCAR JEFFREY Exam Date: 04/17/2022 : 1980 Gender:F Ordering : DR LORENZO CORTEZ . Admission #: [id number] Family : Order #: [id number] CLICK HERE TO VIEW EXAM RADIOLOGY REPORT [...] MD on 04/18/2022 at 11:44 Normal [facility] ECHOCARDIO M/2D COMPLETEon 0 03-30-2022 ECHOCARDIO M/2D COMPLETE Patient: SCAR JEFFREY Exam Date: 03/30/2022 : 1980 Gender:F Ordering : DR LORENZO CORTEZ . Admission #: [id number] Family : Order #: [id number] CLICK HERE TO VIEW EXAM ECHOCARDIOGRAM REPORT [...] M.D. on 03/30/2022 at 13:50 Normal [facility] LIPID PROFILEon 03-30-2022 CHOL-HDL RATIO NORM SEE BELOW Normal [facility] Comment on above: Result Comment: 3.3 - 4.4 LOW RISK 4.4 - 7.1 AVERAGE RISK 7.1 - 11.0 MODERATE RISK >11.0 HIGH RISK Performed By: #### R ENLISSY, LIPID #### [facility] [address] [place] [address] Dr. Keeley Hoskins Cholesterol [Mass/Vol] 140 mg/dL Normal <=200 [facility] Comment on above: Performed By: #### R ENLISSY, LIPID #### [facility] [address] [place] [address] [address] Keeley Hoskins Cholesterol in HDL [Mass/Vol] 30 mg/dL Critically low 40-60 [facility] Comment on above: Performed By: #### R ENLISSY, LIPID #### [facility] [address] [place] [address] [address] Keeley Hoskins Cholesterol in LDL [Mass/Vol] 69.2 mg/dL Normal [facility] Comment on above: Performed By: #### R ENLISSY, LIPID #### [facility] [address] [place] [address] Dr. Keeley Hoskins Cholesterol.total/C holesterol in HDL [Mass ratio] 4.7 {ratio} Normal [facility] Comment on above: Performed By: #### R ENLISSY, LIPID #### [facility] [address] [place] [address] [address] Keeley Hoskins HDL NORMAL > or = 60 mg/dl - LO W CARDIOVASCULAR RISK <40 mg/dl - HIGH CARDIOVASCULAR RISK Normal [facility] Comment on above: Performed By: #### R ENLISSY, LIPID #### [facility] [address] [place] [address] Dr. Keeley Hoskins LDL CALC NORMAL SEE BELOW Normal [facility] Comment on above: Result Comment: <100 mg/dl OPTIMAL 100 - 129 mg/dl NEAR OR ABOVE OPTIMAL 130 - 159 mg/dl BORDERLINE HIGH 160 - 189 mg/dl HIGH >190 mg/dl VERY HIGH Performed By: #### R ENLISSY, LIPID #### [facility] [address] [place] [address] [address] Keeley Hoskins Triglyceride [Mass/Vol] 204 mg/dL Critically high <=150 [facility] Comment on above: Performed By: #### R ENAL, LIPID #### [facility] [address] [place] [address] [address] Keeley Hoskins VLDL CALC 40.8 mg/dL Normal [facility] Comment on above: Performed By: #### R ENAL, LIPID #### [facility] [address] [place] [address] [address] Keeley Hoskins MICROALB CREAT RATIO RANDOMo n 03-30-2022 mALB 8.3 mg/L Normal <=30.0 [facility] Comment on above: Performed By: #### M CRR #### [facility] [address] [place] [address] [address] Keeely Hoskins MALB CR RATIO 466.0 mg/g Critically high 0.0-29.9 [facility] Comment on above: Performed By: #### M CRR #### [facility] [address] [place] [address] [address] Keeley Hoskins MALB CR RATIO RANGE SEE BELOW Normal [facility] Comment on above: Result Comment: NO M ICROALBUMINURIA 0-29 MG/G CLINICAL MICROALBUMINURIA 30-300 MG/G MACROALBUMINURIA >300 MG/G Performed By: #### M CRR #### [facility] [address] [place] [address] [address] Keeley Hoskins URINE CREAT 17.81 mg/dL Critically low 20.00-300.00 [facility] Comment on above: Performed By: #### M CRR #### [facility] [address] [place] [address] [address] Keeley Hoskins RENAL FUNCTION PANELon 03-30 Albumin [Mass/Vol] 4.2 g/dL Normal 3.4-5.0 [facility] Comment on above: Performed By: #### R ENAL, LIPID #### [facility] [address] [place] [address] [address] Keeley Hoskins Calcium [Mass/Vol] 9.2 mg/dL Normal 8.5-10.1 [facility] Comment on above: Performed By: #### R ENAL, LIPID #### [facility] [address] [place] [address] [address] Keeley Hoskins Chloride [Moles/Vol] 98 mmol/L Normal 98-107 [facility] Comment on above: Performed By: #### R ENAL, LIPID #### [facility] [address] [place] [address] [address] Keeley Hoskins CO2 [Moles/Vol] 28.6 mmol/L Normal 21.0-32.0 [facility] Comment on above: Performed By: #### R ENAL, LIPID #### [facility] [address] [place] [address] [address] Keeley Hoskins Creatinine [Mass/Vol] 1.17 mg/dL Critically high 0.55-1.02 [facility] Comment on above: Performed By: #### R ENAL, LIPID #### [facility] [address] [place] [address] [address] Keeley Hoskins EGFR-AF KU[place]I >60 Normal >=60 [facility] Comment on above: Performed By: #### R ENAL, LIPID #### [facility] [address] [place] [address] [address] Keeley Hoskins EGFR-NON AF [place]I 50 mL/min/1.73m2 Critically low >=60 [facility] Comment on above: Performed By: #### R ENAL, LIPID #### [facility] [address] [address] [address] Keeley Hoskins Glucose [Mass/Vol] 212 mg/dL Critically high 74-106 [facility] Comment on above: Performed By: #### R ENAL, LIPID #### [facility] [address] [place] [address] [address] Keeley Hoskins Phosphate [Mass/Vol] 4.0 mg/dL Normal 2.6-4.7 [facility] Comment on above: Performed By: #### R ENAL, LIPID #### [facility] [address] [address] [address] Keeley Hoskins Potassium [Moles/Vol] 4.1 mmol/L Normal 3.5-5.1 [facility] Comment on above: Performed By: #### R ENAL, LIPID #### [facility] [address] [address] [address] Keeley Hoskins Sodium [Moles/Vol] 136 mmol/L Normal 136-145 [facility] Comment on above: Performed By: #### R ENAL, LIPID #### [facility] [address] [place] [address] Dr. Keeley Hoskins Urea nitrogen [Mass/Vol] 16.0 mg/dL Normal 7.0-18.0 [facility] Comment on above: Performed By: #### R ENAL, LIPID #### [facility] [address] [place] [address] Dr. Keeley Hoskins VITAMIN D 25 OHon 03-30-2022 VIT D 25-OH 33.8 ng/mL Normal [facility] Comment on above: Performed By: #### V ITAD #### [facility] [address] [place] [address] Dr. Keeley Hoskins VIT D RANGES SEE BELOW Normal [facility] Comment on above: Result Comment: <20 ng/mL Vit D deficient 20 - <30 ng/mL Vit D insufficient 30 - 100 ng/mL Vit D sufficient >100 ng/mL Potential Toxicity Performed By: #### V ITAD #### [facility] [address] [place] [address] Dr. Keeley Hoskins BNPon 03-16-2022 Natriuretic peptide B (Bld) [Mass/Vol] 20.0 pg/mL Normal <=450.0 [facility] Comment on above: Performed By: #### T 7, TSH, CMP, BNP #### [facility] [address] [place] [address] Dr. Keeley Hoskins CBC AUTO DIFFon 03-16-2022 BASO # 0.1 103/ul Normal 0.0-0.1 [facility] Comment on above: Performed By: #### R ENAL, LIPID #### [facility] [address] [place] [address] Dr. Keeley Hoskins Basophils/100 WBC (Bld) 1.0 % Normal 0.2-2.0 [facility] Comment on above: Performed By: #### R ENAL, LIPID #### [facility] [address] [place] [address] Dr. Keeley Hoskins EO # 0.1 103/ul Normal 0.0-0.7 [facility] Comment on above: Performed By: #### R ENAL, LIPID #### [facility] [address] [place] [address] Dr. Keeley Hoskins Eosinophils/100 WBC (Bld) 1.8 % Normal 0.9-7.0 [facility] Comment on above: Performed By: #### R ENAL, LIPID #### [facility] [address] [place] [address] Dr. Keeley Hoskins Erythrocyte distribution width (RBC) [Ratio] 12.3 % Normal 11.0-15.0 [facility] Comment on above: Performed By: #### R ENAL, LIPID #### [facility] [address] [place] [address] Dr. Keeley Hoskins Hematocrit (Bld) [Volume fraction] 37.3 % Normal 36.0-48.0 [facility] Comment on above: Performed By: #### R ENAL, LIPID #### [facility] [address] [place] [address] Dr. Keeley Hoskins Hemoglobin (Bld) [Mass/Vol] 12.7 g/dL Normal 12.0-16.0 [facility] Comment on above: Performed By: #### R ENAL, LIPID #### [facility] [address] [place] [address] Dr. Keeley Hoskins IG # 0.04 10e3/ul Critically high 0.00-0.03 [facility] Comment on above: Performed By: #### R ENAL, LIPID #### [facility] [address] [place] [address] Dr. Keeley Hoskins IG % 0.6 % Critically high 0.0-0.5 [facility] Comment on above: Performed By: #### R ENAL, LIPID #### [facility] [address] [place] [address] Dr. Keeley Hoskins LYMPH # 1.8 103/ul Normal 1.2-3.8 [facility] Comment on above: Performed By: #### R ENAL, LIPID #### [facility] [address] [place] [address] Dr. Keeley Hoskins Lymphocytes/100 WBC (Bld) 26.4 % Normal 20.5-60.0 [facility] Comment on above: Performed By: #### R ENAL, LIPID #### [facility] [address] [place] [address] Dr. Keeley Hoskins MANUAL DIFF REQ NO Normal [facility] Comment on above: Performed By: #### R ENAL, LIPID #### [facility] [address] [place] [address] Dr. Keeley Hoskins MCH (RBC) [Entitic mass] 28.0 pg Normal 26.7-34.0 [facility] Comment on above: Performed By: #### R ENAL, LIPID #### [facility] [address] [place] [address] Dr. Keeley Hoskins MCHC (RBC) [Mass/Vol] 34.0 g/dL Normal 29.9-35.2 [facility] Comment on above: Performed By: #### R ENAL, LIPID #### [facility] [address] [place] [address] Dr. Keeley Hoskins MCV (RBC) [Entitic vol] 82.2 fL Normal 81.0-99.0 [facility] Comment on above: Performed By: #### R ENAL, LIPID #### [facility] [address] [place] [address] Dr. Keeley Hoskins MONO # 0.5 103/ul Normal 0.3-0.8 [facility] Comment on above: Performed By: #### R ENAL, LIPID #### [facility] [address] [place] [address] Dr. Keeley Hoskins Monocytes/100 WBC (Bld) 6.6 % Normal 1.7-12.0 [facility] Comment on above: Performed By: #### R ENAL, LIPID #### [facility] [address] [place] [address] Dr. Keeley Hoskins NEUT # 4.4 103/ul Normal 1.4-6.5 [facility] Comment on above: Performed By: #### R ENAL, LIPID #### [facility] [address] [place] [address] Dr. Keeley Hoskins Neutrophils/100 WBC (Bld) 63.6 % Normal 43.0-75.0 [facility] Comment on above: Performed By: #### R ENLISSY, LIPID #### [facility] [address] [address] [address] Keeley Hoskins Platelet mean volume (Bld) [Entitic vol] 10.4 fL Normal 9.5-13.5 [facility] Comment on above: Performed By: #### R SEGUN, LIPID #### [facility] [address] [address] [address] Keeley Hoskins PLT 283 103/ul Normal 150-450 [facility] Comment on above: Performed By: #### R SEGUN, LIPID #### [facility] [address] [address] [address] Keeley Hoskins RBC 4.54 106/ul Normal 4.20-5.40 [facility] Comment on above: Performed By: #### R SEGUN, LIPID #### [facility] [address] [address] [address] Keeley Hoskins WBC 6.9 103/ul Normal 4.0-11.0 [facility] Comment on above: Performed By: #### R SEGUN, LIPID #### [facility] [address] [address] [address] Keeley Hoskins FREE THYROXINE INDEX T7on FTI 2.91 Normal 1.30-4.50 [facility] Comment on above: Performed By: #### R ENLISSY, LIPID #### [facility] [address] [place] [address] Dr. Keeley Hoskins T3U 30.0 % Normal 30.0-39.0 [facility] Comment on above: Performed By: #### R ENLISSY, LIPID #### [facility] [address] [address] [address] Keeley Hoskins T4 [Mass/Vol] 9.70 ug/dL Normal 4.80-13.90 [facility] Comment on above: Performed By: #### R ENLISSY, LIPID #### [facility] [address] [address] [address] Keeley Hoskins IRONon 03-16-2022 Iron [Mass/Vol] 72.0 ug/dL Normal 50.0-170.0 [facility] Comment on above: Performed By: #### I MARY #### [facility] [address] [address] [address] Keeley Hoskins PROF 14(COMP METB)on 022 Albumin [Mass/Vol] 3.9 g/dL Normal 3.4-5.0 [facility] Comment on above: Performed By: #### T 7, TSH, CMP, BNP #### [facility] [address] [address] [address] Keeley Hoskins Albumin/Globulin [Mass ratio] 1.1 {ratio} Normal [facility] Comment on above: Performed By: #### T 7, TSH, CMP, BNP #### [facility] [address] [place] [address] Dr. Keeley Hoskins ALP [Catalytic activity/Vol] 143 U/L Critically high 46-116 [facility] Comment on above: Performed By: #### T 7, TSH, CMP, BNP #### [facility] [address] [place] [address] Dr. Keeley Hoskins ALT [Catalytic activity/Vol] 43 U/L Normal 14-59 [facility] Comment on above: Performed By: #### T 7, TSH, CMP, BNP #### [facility] [address] [place] [address] Dr. Keeley Hoskins Anion gap [Moles/Vol] 15.6 mmol/L Normal [facility] Comment on above: Performed By: #### T 7, TSH, CMP, BNP #### [facility] [address] [place] [address] Dr. Keeley Hoskins AST [Catalytic activity/Vol] 23 U/L Normal 15-37 [facility] Comment on above: Performed By: #### T 7, TSH, CMP, BNP #### [facility] [address] [place] [address] Dr. Keeley Hoskins Bilirubin [Mass/Vol] 0.6 mg/dL Normal 0.2-1.0 [facility] Comment on above: Performed By: #### T 7, TSH, CMP, BNP #### [facility] [address] [place] [address] Dr. Keeley Hoskins Calcium [Mass/Vol] 9.2 mg/dL Normal 8.5-10.1 [facility] Comment on above: Performed By: #### T 7, TSH, CMP, BNP #### [facility] [address] [address] [address] Keeley Hoskins Chloride [Moles/Vol] 96 mmol/L Critically low 98-107 [facility] Comment on above: Performed By: #### T 7, TSH, CMP, BNP #### [facility] [address] [place] [address] Dr. Keeley Hoskins CO2 [Moles/Vol] 25.1 mmol/L Normal 21.0-32.0 [facility] Comment on above: Performed By: #### T 7, TSH, CMP, BNP #### [facility] [address] [place] [address] Dr. Keeley Hoskins Creatinine [Mass/Vol] 1.14 mg/dL Critically high 0.55-1.02 [facility] Comment on above: Performed By: #### T 7, TSH, CMP, BNP #### [facility] [address] [place] [address] Dr. Keeley Hoskins EGFR-AF KUWAITI >60 Normal >=60 [facility] Comment on above: Performed By: #### T 7, TSH, CMP, BNP #### [facility] [address] [place] [address] Dr. Keeley Hoskins EGFR-NON AF KU[place]I 52 mL/min/1.73m2 Critically low >=60 [facility] Comment on above: Performed By: #### T 7, TSH, CMP, BNP #### [facility] [address] [place] [address] Dr. Keeley Hoskins Globulin (S) [Mass/Vol] 3.4 g/dL Normal [facility] Comment on above: Performed By: #### T 7, TSH, CMP, BNP #### [facility] [address] [place] [address] Dr. Keeley Hoskins Glucose [Mass/Vol] 438 mg/dL Critically high 74-106 [facility] Comment on above: Performed By: #### T 7, TSH, CMP, BNP #### [facility] [address] [place] [address] Dr. Keeley Hoskins Potassium [Moles/Vol] 4.7 mmol/L Normal 3.5-5.1 [facility] Comment on above: Performed By: #### T 7, TSH, CMP, BNP #### [facility] [address] [place] [address] Dr. Keeley Hoskins Protein [Mass/Vol] 7.3 g/dL Normal 6.4-8.2 [facility] Comment on above: Performed By: #### T 7, TSH, CMP, BNP #### [facility] [address] [place] [address] Dr. Keeley Hoskins Sodium [Moles/Vol] 132 mmol/L Critically low 136-145 [facility] Comment on above: Performed By: #### T 7, TSH, CMP, BNP #### [facility] [address] [place] [address] Dr. Keeley Hoskins Urea nitrogen [Mass/Vol] 17.0 mg/dL Normal 7.0-18.0 [facility] Comment on above: Performed By: #### T 7, TSH, CMP, BNP #### [facility] [address] [place] [address] Dr. Keeley Hoskins Urea nitrogen/Creatinine [Mass ratio] 14.9 mg/mg Normal [facility] Comment on above: Performed By: #### T 7, TSH, CMP, BNP #### [facility] [address] [place] [address] Dr. Keeley Hoskins TSHon 03-16-2022 TSH 2.240 uIU/mL Normal 0.358-3.740 [facility] Comment on above: Performed By: #### R ENAL, LIPID #### [facility] [address] [place] [address] Dr. Keeley Hoskins KNEE RIGHT 3 [facility] KNEE RIGHT 3 [facility] Department of Radiology [address] [place] [phone] ===== Patient Name: SCAR JEFFREY : 1980 Sex: F Age: Race: White Pt. Location: Patient Status: O Ordered Date: 06/13/2021 9:05:00 AM Completed Date: 06/13/2021 09:13 AM Requesting Provider: TONYA CENTENO Attending Provider: TONYA CENTENO Report Copy To: Signs & Symptoms: M25.561 Pain in right knee I10 History: Comments: standing , Weight Bearing?: Y Exam: KNEE RIGHT 3 [facility] ===== KNEE RIGHT 3 [facility] 06/13/2021 9:13 AM CLINICAL INDICATIONS: M25.561 [...] pathology Electronically signed: Toyin Juan. Transcribed by: [email or web address], User Resident: Electronically Signed by: TOYIN JUAN @ 06/13/2021 11:03 AM Normal [facility] Comment on above: Order Comment: stand ing , Weight Bearing?: Y KNEE RIGHT 3 [facility] 1 KNEE RIGHT 3 [facility] Department of Radiology [address] [place] [id number] ===== Patient Name: SCAR JFEFREY : 1980 Sex: F Age: Race: White Pt. Location: Patient Status: O Ordered Date: 11/15/2020 10:15:00 AM Completed Date: 11/15/2020 10:33 AM Requesting Provider: TONYA CENTENO Attending Provider: TONYA CENTENO Report Copy To: Signs & Symptoms: M25.561 Pain in right knee I10 History: [place] Comments: evaluate Exam: KNEE RIGHT 3 [facility] ===== KNEE RIGHT 3 [facility] 11/15/2020 10:33 AM CLINICAL INDICATIONS: M25.561 Pain [...] reports Electronically signed: Naila Puentes. Transcribed by: [email or web address], User Resident: GREGG LEMONS Electronically Signed by: NAILA PUENTES @ 11/15/2020 11:25 AM I personally read this/these film(s) with this resident Normal [facility] Comment on above: Order Comment: evalu ate TIBIA FIBULA RIGHTon 021 TIBIA FIBULA RIGHT [facility] Department of Radiology [address] [place] [phone] ===== Patient Name: SCAR JEFFREY : 1980 Sex: F Age: Race: White Pt. Location: Patient Status: O Ordered Date: 11/15/2020 9:55:00 AM Completed Date: 11/15/2020 10:33 AM Requesting Provider: TONYA CENTENO Attending Provider: TONYA CENTENO Report Copy To: Signs & Symptoms: S82.142A Displaced bicondylar fracture of right tibia, init I10 History: [place] Comments: evaluate Exam: TIBIA FIBULA RIGHT ===== [...] abnormality. Electronically signed: Naila Puentes. Transcribed by: [email or web address], User Resident: Electronically Signed by: NAILA PUENTES @ 11/15/2020 11:37 AM Normal [facility] Comment on above: Order Comment: evalu ate Vital Signs Date Time Vital Sign Value Performing Clinician Facility 10-30-2024 10:00-0500 Body height 166.4 cm Zay Gonzalez MD Work Phone: [facility] 10-30-2024 10:00-0500 Body mass index (BMI) [Ratio] 40.81 kg/m2 Zay Gonzalez MD Work Phone: [facility] 10-30-2024 10:00-0500 Body weight 112.95 kg Zay Gonzalez MD Work Phone: [facility] 10-30-2024 10:00-0500 Diastolic blood pressure 68 mm[Hg] Zay Gonzalez MD Work Phone: [facility] 10-30-2024 10:00-0500 Heart rate 73 /min Zay Gonzalez MD Work Phone: [facility] 10-30-2024 10:00-0500 Respiratory rate 18 /min Zay Gonzalez MD Work Phone: [facility] 10-30-2024 10:00-0500 SaO2% (BldA) [Mass fraction] 97 % Zay Gonzalez MD Work Phone: [facility] 10-30-2024 10:00-0500 Systolic blood pressure 122 mm[Hg] Zay Gonzalez MD Work Phone: [facility] 10-21-2024 09:27-0500 Body height 166.4 cm Shara Metcalf MD Work Phone: [facility] 10-21-2024 09:27-0500 Body mass index (BMI) [Ratio] 42.28 kg/m2 Shara Metcalf MD Work Phone: [facility] 10-21-2024 09:27-0500 Body weight 117.03 kg Shara Metcalf MD Work Phone: [facility] 10-21-2024 09:27-0500 Diastolic blood pressure 63 mm[Hg] Shara Metcalf MD Work Phone: [facility] 10-21-2024 09:27-0500 Heart rate 82 /min Shara Metcalf MD Work Phone: [facility] 10-21-2024 09:27-0500 Systolic blood pressure 147 mm[Hg] Shara Metcalf MD Work Phone: [facility] 09-23-2024 13:49-0500 Blood Pressure Location Kobe NILL [facility] 09-23-2024 13:49-0500 Diastolic blood pressure 64 mm[Hg] Kobe NILL [facility] 09-23-2024 13:49-0500 Heart rate 72 /min Kobe NILL [facility] 09-23-2024 13:49-0500 Respiratory rate 16 /min Kobe NILL [facility] 09-23-2024 13:49-0500 Systolic blood pressure 146 mm[Hg] Kobe NILL [facility] 06-23-2024 10:10-0400 Body height 166.4 cm Zay Gonzalez MD Work Phone: [facility] 06-23-2024 10:10-0400 Body mass index (BMI) [Ratio] 59.16 kg/m2 Zay Gonzalez MD Work Phone: [facility] 06-23-2024 10:10-0400 Body weight 163.75 kg Zay Gonzalez MD Work Phone: [facility] 06-23-2024 10:10-0400 Diastolic blood pressure 60 mm[Hg] Zay Gonzalez MD Work Phone: [facility] 06-23-2024 10:10-0400 Heart rate 98 /min Zay Gonzalez MD Work Phone: [facility] 06-23-2024 10:10-0400 Respiratory rate 18 /min Zay Gonzalez MD Work Phone: [facility] 06-23-2024 10:10-0400 Systolic blood pressure 160 mm[Hg] Zay Gonzalez MD Work Phone: [facility] 06-03-2024 16:01-0400 Blood Pressure Location Kobe NILL [facility] 06-03-2024 16:01-0400 Diastolic blood pressure 70 mm[Hg] Kobe NILL [facility] 06-03-2024 16:01-0400 Heart rate 72 /min Kobe NILL [facility] 06-03-2024 16:01-0400 Respiratory rate 16 /min Kobe NILL [facility] 06-03-2024 16:01-0400 Systolic blood pressure 132 mm[Hg] Kobe NILL [facility] Encounters Encounter Date Encounter Type Care Provider Facility Start: 03-24-2025 ambulatory Kobe R NILL Facility :[facility] Start: 02-03-2025 ambulatory Castillo Rollins acility:[facility] Start: 01-30-2025 End: 01-30-2025 ambulatory ZAY GONZALEZ Not Available Start: 01-27-2025 End: 01-27-2025 ambulatory Kobe R NILL Facility:[facility] Start: 01-27-2025 End: 01-27-2025 Patient encounter procedure Kobe R NILL [facility] Start: 12-23-2024 End: 12-23-2024 ambulatory Kobe R NILL Facility:[facility] Start: 11-25-2024 End: 11-25-2024 ambulatory EMANUEL FIORE Not Available Start: 10-30-2024 End: 10-30-2024 Bamboo sumeet Gonzalez MD Work Phone: [facility] Start: 10-30-2024 End: 10-30-2024 Bamboo flowsheet Zay Gonzalez MD Work Phone: [facility] Start: 10-30-2024 End: 10-30-2024 Telephone encounter Zay Gonzalez MD Work Phone: [facility] Start: 10-30-2024 End: 10-30-2024 Office outpatient visit 40 minutes Zay Gonzalez MD Work Phone: [facility] Comment on above: Type 1 diabetes bar itus with hyperglycemia (HCC) (CMS/HCC) (Primary Dx); Vitamin D deficiency; Encounter for dietary consultation; Insulin long-term use (CMS/HCC); Microalbuminuria; Insulin pump in place; Encounter for fitting or adjustment of insulin pump; Primary hypertension (CMS/HCC); 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 (CMS/HCC) Start: 10-30-2024 End: 10-30-2024 ambulatory ZAY GONZALEZ Not Available Start: 10-21-2024 End: 10-21-2024 Bamboo flowsheet Shara Metcalf MD Work Phone: [facility] Start: 10-21-2024 End: 10-21-2024 Bamboo flowsheet Shara Metcalf MD Work Phone: [facility] Start: 10-21-2024 End: 10-21-2024 Office outpatient visit 15 minutes Shara Metcalf MD Work Phone: [facility] Comment on above: LAD (lymphadenopathy ), cervical (Primary Dx) Start: 10-21-2024 End: 10-21-2024 ambulatory SHARA METCALF Not Available Start: 09-23-2024 End: 09-23-2024 ambulatory Kobe ROBERTSON Facility:[facility] Start: 09-23-2024 End: 09-23-2024 Patient encounter procedure Kobe Davidson CHINAL [facility] Start: 06-24-2024 End: 06-24-2024 ambulatory Kobe ATKINSONL Facility:[facility] Start: 06-24-2024 End: 06-24-2024 Patient encounter procedure Kobe Lety ATKINSONL [facility] Start: 06-23-2024 End: 06-23-2024 Bamboo flowsheet Zay Gonzalez MD Work Phone: [facility] Start: 06-23-2024 End: 06-23-2024 Bamboo flowsheet Zay Gonzalez MD Work Phone: [facility] Start: 06-23-2024 End: 06-23-2024 Office outpatient visit 40 minutes Zay Gonzalez MD Work Phone: [facility] Comment on above: Type 1 diabetes bar itus with hyperglycemia (HCC) ([facility]/HCC) (Primary Dx); Vitamin D deficiency; Encounter for dietary consultation; Insulin long-term use ([facility]); Microalbuminuria; Insulin pump in place; Encounter for fitting or adjustment of insulin pump; Primary hypertension ([facility]/HCC); 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 ([facility]/HCC) Start: 06-23-2024 End: 06-23-2024 ambulatory ZAY GONZALEZ Not Available Start: 06-18-2024 End: 06-18-2024 Lab Drop off Kobe Lety ATKINSONL [facility] Start: 06-18-2024 End: 06-18-2024 ambulatory Kobe ATKINSONL Facility:[facility] Start: 06-18-2024 End: 06-18-2024 [facility] Start: 06-03-2024 End: 06-03-2024 ambulatory Lorenzo Cortez [facility] Start: 06-03-2024 End: 06-03-2024 Patient encounter procedure Kobe ROBERTSON [facility] Start: 01-22-2023 End: 01-23-[address] [...] Start: 10-15-2020 End: 11-01-2020 ambulatory TONYA CENTENO Facility:[facility] Procedures Date Procedure Procedure Detail Performing Clinician Start: 12-23-2024 Excision of skin tag Nohelia ATKINSONL Start: 10-30-2024 Gluc bld gluc mntr d ev cleared fda spec home use Zay Gonzalez MD Work Phone: Start: 06-23-2024 Gluc bld gluc mntr d ev cleared fda spec home use Zay Gonzalez MD Work Phone: Start: 06-18-2024 Excision of skin tag Nohelia ATKINSONL Start: 06-08-2021 Colonoscopy Kobe GAONA Arthroscopic repair of rotator cuff Kobe ROBERTSON Bladder excision Kobe Spaulding Comment on above: multiple section Kobe Spaulding section Kobe Spaulding Cholecystectomy Kobe ROBERTSON Decompression of med jesusita nerve Kobe ROBERTSON Comment on above: right Excision of vocal co rd nodule Kobe ROBERTSON Insertion of insulin pump Nohelia ROBERTSON Plan of Treatment Date Care Activity Detail Author Start: 01-30-2025 End: 01-30-2025 Patient encounter procedure 01/30/2025 10:20 AM EDT Office Visit [facility] [address] [place] [address] Zay Gonzalez MD [address] [place] [address] [facility] Start: 10-30-2024 End: 10-30-2024 Patient encounter procedure [facility] Comment on above: Arrived Start: 10-27-2024 End: 10-27-2024 Patient encounter procedure 10/27/2024 10:10 AM EST Office Visit [facility] [address] [place] [address] Zay Gonzalez MD [address] [place] [address] [facility] Start: 10-21-2024 End: 10-21-2024 Patient encounter procedure 10/21/2024 9:50 AM EST Office Visit [facility] [address] [facility] [address] [place] [id number] Shara Metcalf MD [address] [place] [address] Arrived [facility] Comment on above: Arrived Start: 06-23-2024 End: 06-23-2024 Patient encounter procedure 06/23/2024 10:40 AM EDT Office Visit [facility] [address] [place] [address] Zay Gonzalez MD [address] [place] [address] Type 1 diabetes mellitus with hyperglycemia (HCC) (CMS/HCC) [facility] Comment on above: Type 1 diabetes bar itus with hyperglycemia (HCC) ([facility]/HCC) Payers Date Payer Category Payer Self-pay 2021 Private Health Insurance flower [id number] 2019 Medicare (Managed Care) [employer] Katelynn [employer] [id number] 2017 Medicaid [id number] 1978 Unknown [id number] 2.16.840.1.963241.3.579.2. 647 1978 Unknown [id number] 2.16.840.1.570032.3.579.2. 593 1978 Unknown [id number] 2.16.840.1.144272.3.579.2. 593 1978 Unknown [id number] 2.16.840.1.851039.3.579.2. 593 1978 Unknown [id number] 2.16.840.1.863618.3.579.2. 593 1978 Unknown [id number] 2.16.840.1.076904.3.579.2. 593 1978 Unknown [id number] 2.16.840.1.197813.3.579.2. 593 1978 Unknown [id number] 2.16.840.1.619698.3.579.2. 593 1978 Unknown [id number] 2.16.840.1.316006.3.579.2. 59 1978 Unknown [id number] 2.16.840.1.580503.3.579.2. 593 1978 Unknown [id number] 2.16.840.1.749826.3.579.2. 72 1978 Unknown [id number] 2.16.840.1.421429.3.579.2. 72 1978 Unknown [id number] 2.16.840.1.996250.3.579.2 1978 Unknown [id number] 2.16.840.1.993378.3.579.2. 72 1978 Unknown [id number] 2.16.840.1.987809.3.579.2. 72 1978 Unknown [id number] 2.16.840.1.003255.3.579.2. 72 1978 Unknown [id number] 2.16.840.1.928336.3.579.2 1978 Unknown [id number] 2.16.840.1.220198.3.579.2. 727 1978 Unknown [id number] 2.16.840.1.884593.3.579.2. 1259 1978 Unknown [id number] 2.16.840.1.771932.3.579.2. 1259 1978 Unknown [id number] 2.16.840.1.358649.3.579.2. 1259 1978 Unknown [id number] 2.16.840.1.113594.3.579.2. 1259 1978 Unknown [id number] 2.16.840.1.413813.3.579.2. 1259 1961 Medicaid [id number] 1961 Private Health Insurance [id number] Unknown [id number] 2.16.840.1.507337.3.579.2. 531 Social History Date Type Detail Facility Start: 06-03-2024 End: 01-27-2025 Tobacco smoking status Ex-smoker (finding) [facility] Tobacco smoking status Never [facility] Start: 01-23-2024 End: 10-30-2024 Sex Assigned At Female [facility] Start: 09-10-2005 End: 09-10-2016 History of tobacco use Current smoker [facility] Start: 09-10-2005 End: 09-10-2016 History of tobacco use Cigarette Smoker [facility] Start: 12-18-2023 End: 10-30-2024 Tobacco use and exposure Smokeless tobacco non-user [facility] Start: 06-12-2024 End: 10-30-2024 Alcoholic beverage intake Ex-drinker (finding) [facility] Start: 01-23-2024 End: 10-30-2024 History of Social function [facility] Start: 1980 Sex assigned at Not on file [facility] Sexual Orientation [facility] Start: 03-26-2019 Sex Female (finding) [facility] Medical Equipment Procedure Code Equipment Code Equipment Origin al Text Equipment Identifier Dates [id number] Start: 06-10-2024 End: 06-10-2025 TEST BLOOD SUGAR SIX TIMES DAILY [id number] Start: 10-29-2024 Functional Status Date Assessment Result Facility 01-27-2025 Functional Status N/A [facility] [place] 09-23-2024 Functional Status N/A [facility] [place] 06-03-2024 Functional Status N/A [facility] [place] Clinical Notes 04-17-2022 to 10-30-2024 Telephone Encounter - Jose Radha - 10/30/2024 11:18 AM ESTTelephone Encounter - Jose Garcia - 10/30/2024 11:18 AM Ev Gonzalez MD - 10/30/2024 9:50 AM EST Note Date & Type Note Facility 10-30-2024 Telephone encounter Note Please resend Dexcom G7 and kit to [facility] please and thank you! Omnipod 5 pods to [facility] as well. Thanks! [facility] 10-30-2024 Miscellaneous Notes Please resend Dexcom G7 and kit to [facility] please and thank you! Omnipod 5 pods to [facility] as well. Thanks! documented in this encounter [facility] 10-30-2024 History of Present illness Narrative Scar Jeffrey is a 44 y.o. female Zay Gonzalez MD presents with chief complaint of Diabetes HPI: Interim History: 10/2024 Follow-up visit of 10/30/2024 for type 1 diabetes. she is on U-500 and sensor pump. 12 AM 1, 8 AM 2.8, 10 PM 2.5 ICR 1:5, ISS: 1:20, A1c 8.1 , BG 241 , on metformin 1000 mg bid. Interim History: 06/2024 Follow-up visit of for type 1 diabetes. she is on U-500 and sensor pump. 12 AM 1, 8 AM 2.8, 10 PM 2.5 ICR 1:5, ISS: 1:20, A1c 7.9 , BG 361 , on metformin 1000 mg bid. CGM 38-56 AVG 201. pupm 69/31 TDD 75 units of U-500 Interim History: 02/2024 Follow-up visit of 02/25/2024 for type 1 diabetes. she is on U-500 and sensor pump. 12 AM 2.5, 8 AM 2.8, 10 PM 2.5 ICR 1:5, ISS: 1:20, 68/32 %, TDD 85. A1c 8, BG 126, on metformin 1000 mg bid. CGM -38-56 AVG 201. Interim History: 11/2023 Follow-up visit of 11/12/2023 for type 1 diabetes. she is on U-500 and sensor pump. 12 AM 2, 8 AM 2.2, 10 PM 2 ICR 1:5, ISS: 1:20, 69.31 %, TDD 61. a1C 7.9, BG 232, on metformin 1000 mg bid. CGM -54 AVG 190. Interim History: 08/2023 Follow-up visit [...] readings . wants to check her for Bacova's disease since her mother had it. Interim [...] 6 hours PRN amLODIPine (NORVASC) 5 mg, Daily aspirin 81 mg, Daily buPROPion XL (WELLBUTRIN XL) 300 mg, Daily citalopram (CELEXA) 40 mg, Every 24 hours Continuous Glucose Senior Bi Developer (Dexcom G7 Senior Bi Developer) device 1 kit, Does not apply, Continuous Continuous Glucose Sensor (Dexcom G7 Sensor) misc 1 kit, Does not apply, Every 10 days famotidine (PEPCID) 20 mg, Daily fluticasone-salmeterol (Advair) 230-21 MCG/ACT inhaler 2 puffs, 2 times daily RT furosemide (Lasix) 80 MG tablet 1 tablet, Daily glucose blood (Contour Next Test) test strip TEST BLOOD SUGAR SIX TIMES DAILY glucose blood test strip use 1 TEST [...] (ZOCOR) 20 mg, Nightly Vitamin D, Ergocalciferol, 03571 units capsule 1 tablet, Weekly ALLERGIES: Allergies Allergen Reactions Codeine Hydrocodone Throat swelling, vomiting Morphine GI intolerance vomiting Oxcarbazepine Other Reaction(s): tightness in chest Penicillin G Hives Penicillins Valproic Acid Other Reaction(s): Trouble Breathing Lamotrigine Rash Past Medical History: Diagnosis Date Anxiety Congestive heart failure (CHF) (CMS/HCC) Essential (primary) hypertension (CMS/HCC) 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 (CMS/HCC) 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 (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/HCC) Migraine (CMS/HCC) [...] break Lab Results Component Value Date HGBA1C 8.1 10/30/2024 HGBA1C 7.9 06/23/2024 Lab Results Component Value Date GLU 241 10/30/2024 GLU 361 06/23/2024 GLU 249 (H) 12/10/2018 08/02/2020 12:00 PM 12/24/2023 10:38 AM 01/23/2024 9:36 AM 02/25/2024 9:41 AM 06/23/2024 10:10 AM 10/21/2024 9:27 AM 10/30/2024 10:00 AM Vitals BMI 33.89 kg/m2 39.99 kg/m2 39.49 kg/m2 40.27 kg/m2 59.16 kg/m2 42.28 kg/m2 40.81 kg/m2 BSA (m2) 2.11 m2 2.26 m2 2.24 m2 2.25 m2 2.75 m2 2.33 m2 2.29 m2 Systolic 165 140 122 160 147 122 Diastolic 71 68 60 60 63 68 Heart Rate 89 98 82 73 SpO2 96 % 97 % Resp 18 18 18 Height (in) 5' 6 5' 5.5 5' 5.5 5' 5 5' 5.5 5' 5.5 5' 5.5 Weight (lb) 210 244 241 242 361 258 249 Visit Report Report Report Report Report Report ASSESSMENT AND PLAN: Assessment/Plan Diagnoses and all orders for this visit: Type 1 diabetes mellitus with hyperglycemia (HCC) ([facility]) - POCT glycosylated hemoglobin (Hb A1C) docked device - POCT glucose manually resulted - metFORMIN (Glucophage) 1000 MG tablet; Take 1 tablet (1,000 mg) by mouth in the morning and 1 tablet (1,000 mg) in the evening. Take with meals. We will continue with the same insulin pump settings, continue with metformin using U500 in pump. 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 documented in this encounter [facility] 09-27-2024 History of Present illness Narrative Subjective Patient ID: Scar Jeffrey is a 44 y.o. female who presents for Mass (CT Neck TB 09/27/24) Pt reports she has tomas cervical swelling and pressure. Pt states no tx so far. US ST neck and CT neck show no abnormality per radiology. CT reviewed and no pathologic LAD evident. Dr Cortez's note indicates pt requested referral for LN removal Family History Problem Relation Name Age of Onset Heart failure Father Cancer Father Hypertension Father Active Ambulatory Problems Diagnosis Date Noted Bipolar I disorder ([facility]) 08/20/2012 Chronic hoarseness 12/18/2023 Disorder of nervous 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 2 diabetes mellitus (CMS/HCC) 08/19/2012 Dysthymia (CMS/[facility]) 08/19/2012 Epilepsy (CMS/[facility]) 08/19/2012 Insomnia 08/19/2012 Laryngopharyngeal reflux 12/18/2023 Mass of head 12/18/2023 Type 2 diabetes mellitus without complication ([facility]) 08/19/2012 Sleep apnea 12/18/2023 Sinusitis, chronic 12/18/2023 LAD (lymphadenopathy) of left cervical region 12/24/2023 Abdominal bloating 01/17/2024 Anxiety 01/17/2024 Benign neoplasm of transverse colon 01/17/2024 Diastasis of rectus abdominis 01/17/2024 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 01/17/2024 Epidermoid cyst of face 01/17/2024 Epigastric pain 01/17/2024 Gastroesophageal reflux disease 01/17/2024 Family history of malignant neoplasm of colon 01/17/2024 Hypertension (CMS/HCC) 01/17/2024 Irritable bowel syndrome 01/17/2024 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[facility]) 01/17/2024 Migraine headache (CMS/[facility]) 01/17/2024 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 1 diabetes mellitus ([facility]) 01/17/2024 Nausea 01/17/2024 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 [place] 01/17/2024 Obesity with body mass index 30 or greater 01/17/2024 Pain in joint of right shoulder 08/02/2020 Pain in right arm 08/02/2020 Pain in right knee 08/02/2020 Type 1 diabetes mellitus ([facility]) 01/17/2024 Seizure disorder ([facility] 01/17/2024 Resolved Ambulatory Problems Diagnosis Date Noted Chronic laryngitis 12/18/2023 Past Medical History: Diagnosis Date Congestive heart failure (CHF) [place] Essential (primary) hypertension [place] Hypothyroid [place] senior living (current) use of insulin [place] Migraine [place] Presence of insulin pump (external) (internal) Proteinuria, unspecified Seizures ([facility] Torn meniscus 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 ([facility] Vitamin D deficiency, unspecified Past Surgical History: Procedure Laterality Date CARPAL TUNNEL RELEASE Right SECTION, CLASSIC x 2 CHOLECYSTECTOMY COLONOSCOPY Polp removal CYST REMOVAL Back, face and right upper arm cyst removal CYST REMOVAL Removed from vocal chords HYSTERECTOMY ROTATOR CUFF REPAIR Left Allergies Allergen Reactions Codeine Hydrocodone Throat swelling, vomiting Morphine GI intolerance vomiting Oxcarbazepine Other Reaction(s): tightness in chest Penicillin G Hives Penicillins Valproic Acid Other Reaction(s): Trouble Breathing Lamotrigine Rash Current Outpatient Medications on File Prior to Visit Medication Sig Dispense Refill albuterol HFA (Ventolin HFA) 90 mcg/act inhaler Inhale 2 puffs every 6 (six) hours if needed amLODIPine (Norvasc) 5 MG tablet Take 5 mg by mouth Daily aspirin 81 MG EC tablet Take 81 mg by mouth Daily buPROPion XL (Wellbutrin XL) 300 MG 24 hr tablet Take 300 mg by mouth Daily Do not crush, chew, or split. citalopram (CeleXA) 20 MG tablet Take 40 mg by mouth 1 (one) time each day at the same time Continuous Glucose Senior Bi Developer (Dexcom G7 Senior Bi Developer) device 1 kit continuously 1 each 1 Continuous Glucose Sensor (Dexcom G7 Sensor) misc 1 kit Every 10 (ten) days 9 each 1 famotidine (Pepcid) 20 MG tablet Take 20 mg by mouth Daily fluticasone-salmeterol (Advair) 230-21 MCG/ACT inhaler Inhale 2 puffs in the morning and 2 puffs before bedtime. Rinse mouth with water after use to reduce aftertaste and incidence of candidiasis. Do not swallow.. furosemide (Lasix) 80 MG tablet Take 1 tablet by mouth Daily glucose blood (Contour Next Test) test strip USE TO TEST BLOOD SUGARS SIX TIMES A DAY. 600 each 12 glucose blood test strip use 1 TEST STRIP to TEST BLOOD SUGAR every 4 hours Insulin Disposable Pump (Omnipod DASH Pods, Gen 4,) misc CHANGE POD EVERY 24 HOURS DIRECTED 90 each 3 insulin regular (HumuLIN R) 500 UNIT/ML CONCENTRATED injection USE 450 units TOTAL daily per insulin pump 100 mL 11 levETIRAcetam (Keppra) 500 MG tablet Take 500 mg by mouth in the morning and 500 mg before bedtime. levothyroxine (Synthroid) 100 MCG tablet Take 100 mcg by mouth in the morning. Take before meals. LORazepam (Ativan) 1 MG tablet Take 1 mg by mouth every 8 (eight) hours losartan (Cozaar) 50 MG tablet Take 100 mg by mouth 1 (one) time each day at the same time metFORMIN (Glucophage) 500 MG tablet TAKE 2 TABLETS IN THE MORNING AND 2 TABLETS IN THE EVENING. TAKE WITH MEALS. 360 tablet 3 omeprazole (PriLOSEC) [address] capsule Take 40 mg by mouth in the morning. Take before meals. Do not crush or chew.. potassium chloride CR (Klor-Con) 10 MEQ ER tablet 10 mEq in the morning and 10 mEq before bedtime. risperiDONE (RisperDAL) 2 MG tablet Take 4 mg by mouth Daily simvastatin (Zocor) 20 MG tablet Take 20 mg by mouth at bedtime Vitamin D, Ergocalciferol, 10362 units capsule Take 1 tablet by mouth 1 (one) time per week No current facility-administered medications on file prior to visit. Objective Last Recorded Vitals Vitals: 10/21/24 0927 BP: 147/63 Pulse: 82 ENT Physical Exam Constitutional Appearance: patient appears well-developed and well-nourished, Oral Cavity/Oropharynx OC/OP comments: OC/OP/IDL - no mass or ulcer Neck Neck comments: Supple, FROM, No LAD Assessment/Plan Diagnoses and all orders for this visit: LAD (lymphadenopathy), cervical Pt reassured there is no abnormality evident on CT or exam. No tx needed documented in this encounter [facility] 09-23-2024 Note General Surgery Offi ce/Clinic Note Chief [...] (corpus and cervix) (more content not included)... [facility] Comment on above: Result Comment: Elec tronically Signed By: AILYN CHENG, Kobe Radford\Date and Time Signed: 09/23/24 15:16 EST 06-23-2024 History of Present illness Narrative Scar Jeffrey is a 43 [...] readings . wants to check her for Bacova's disease since her mother had it. Interim [...] (ZOCOR) 20 mg, Nightly Vitamin D, Ergocalciferol, 41045 units capsule 1 tablet, Weekly ALLERGIES: Allergies Allergen Reactions Codeine Hydrocodone Throat swelling, vomiting Morphine GI intolerance vomiting Oxcarbazepine Other Reaction(s): tightness in chest Penicillin G Hives Penicillins Valproic Acid Other Reaction(s): Trouble Breathing Lamotrigine Rash Past Medical History: Diagnosis Date Anxiety Congestive heart failure (CHF) (CMS/HCC) Essential (primary) hypertension (CMS/HCC) Hypothyroid (CMS/HCC) senior living (current) use of insulin (CMS/HCC) Migraine (CMS/HCC) Presence of insulin pump (external) (internal) Proteinuria, unspecified Seizures (CMS/HCC) Sleep apnea Torn meniscus 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 ([facility]) Vitamin D deficiency, unspecified Past Surgical History: [...] Type 1 diabetes mellitus with hyperglycemia (HCC) ([facility]) - POCT glucose manually resulted - [...] Encounter for dietary consultation Insulin long-term use (CMS/HCC) Microalbuminuria Insulin pump in place Encounter for fitting or adjustment of insulin pump Primary hypertension (CMS/HCC) 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 documented in this encounter [facility] 06-03-2024 Note General Surgery Offi ce/Clinic Note [...] chloride 10 mEq (more content not included)... [facility] Comment on above: Result Comment: Elec tronically Signed By: AILYN CHENG, Kobe Radford\Date and Time Signed: 06/03/24 16:38 EDT 04-17-2022 Note CARDIAC STRESS TEST Requesting Physician: [...] 85% of maximum predicted heart rate. [facility] Evaluation + Plan note Future Appointments Appointment Date:06/18/2024 03:00:00 PM Scheduled Provider:Kobe ROBERTSON MD Location:[facility] Appointment Type:[facility] Surgery [address] [place] [address] Evaluation + Plan note Future Appointments Appointment Date:06/24/2024 02:00:00 PM Scheduled Provider:Kobe ROBERTSON MD Location:[facility] Appointment Type: Established [address] [place] [address] Evaluation + Plan note Future Appointments Appointment Date:03/24/2025 01:40:00 PM Scheduled Provider:Kobe ROBERTSON MD Location:[facility] Appointment Type: Procedure [address] [place] [address] Surgery [place] Evaluation note Diagnosis Type 1 diabetes mellitus with hyperglycemia (HCC) ([facility]/HCC)- Primary Vitamin D deficiency Encounter for dietary consultation Insulin long-term use ([facility]/HCC) Encounter for long-term (current) use of insulin Microalbuminuria Proteinuria Insulin pump in place Insulin pump status Encounter for fitting or adjustment of insulin pump Fitting and adjustment of insulin pump Primary hypertension (CMS/HCC) Unspecified essential hypertension 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 (CMS/HCC) [facility] Diagnosis LAD (lymphadenopathy), cervical- Primary [facility] Diagnosis Type 1 diabetes mellitus with hyperglycemia (HCC) ([facility]/HCC)- Primary Vitamin D deficiency Encounter for dietary consultation Insulin long-term use ([facility]/HCC) Encounter for long-term (current) use of insulin Microalbuminuria Proteinuria Insulin pump in place Insulin pump status Encounter for fitting or adjustment of insulin pump Fitting and adjustment of insulin pump Primary hypertension (CMS/HCC) Unspecified essential hypertension 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 Hospital Discharge instructions No data available for this section [facility] Progress note No data available for this section [facility] Summary Purpose Family History No Family [...] section and content) DATE CREATED AUTHOR 10/02/2021 [facility] DATE CREATED AUTHOR AUTHOR'S ORGANIZ ATION 01/23/2023 [facility] DATE CREATED AUTHOR AUTHOR'S ORGANIZ ATION 06/27/2024 [facility] DATE CREATED AUTHOR AUTHOR'S ORGANIZ ATION 09/03/2024 [facility] DATE CREATED AUTHOR AUTHOR'S ORGANIZ ATION 01/28/2025 [facility] DATE CREATED AUTHOR AUTHOR'S ORGANIZ ATION 02/05/2025 [facility] EPIC DATE CREATED AUTHOR AUTHOR'S ORGANIZ ATION 02/06/2025 [facility] Patient Care team informatio n (unrecognized section and content) Supervisor Machining Relationship Specialty Start Date End Date Lorenzo Cortez MD [address] [place] [address] PCP - General Family Medicine 12/18/23 Supervisor Machining Relationship Specialty Start Date End Date Lorenzo Cortez MD [address] [place] [address] PCP - General Family Medicine 12/18/23 Supervisor Machining Relationship Specialty Start Date End Date Lorenzo Cortez MD [address] [place] [address] PCP - General Family Medicine 12/18/23 Supervisor Machining Relationship Specialty Start Date End Date Lorenzo Cortez MD [address] [place] [address] PCP - General Family Medicine 12/18/23 Supervisor Machining Relationship Specialty Start Date End Date Lorenzo Cortez MD [address] [place] [address] PCP - General Family Medicine 12/18/23 Supervisor Machining Relationship Specialty Start Date End Date Lorenzo Cortez MD [address] [place] [address] PCP - General Family Medicine 12/18/23 Reason for Visit (unrecogniz ed section and content) Reason Comments Diabetes Follow-up Reason Comments Mass CT Neck [facility] 09/27/24 Reason Comments Diabetes FOR RECORDS PERTAINING TO PATIENTS WHO ARE [...] BE BASED ON THE PRIMARY CLINICAL RECORDS. [employer] [facility]. provides no warranty or guarantee of the accuracy or completeness of information in this document.
== END 2025-02-27 07:38 | disposition home or self-care (01) ==
LOC: MRI 07:38
PROVIDERS: PCP Family Medicine; Visit Provider Family Medicine
DX: G45.3 Amaurosis fugax (principal)
CPT/HCPCS: 70544; 70547; 70551

== ENCOUNTER 2025-02-27 09:57 | Outpatient (OUT) | payer MEDICARE, MEDICAID, SELFPAY ==
--- OUTSIDE RECORDS SUMMARY | 2025-02-27 10:11 | XMS_ITS | CCD ---
Author Organization [facility] Care Team Providers Care Rn Pool Name Role Phone NOÉHEIMCARMENIL Attending Unavailable EBRAHEIM [...] VENTURA Primary Care Unavailable HOY ., DR VENUTRA Attending Unavailable HOY ., DR VENTURA Consulting Unavailable [facility], DR FLORA Davidson Consulting Unavailable HOY ., DR VENTURA Admitting Unavailable HOY ., DR VENTURA Primary Care Unavailable HOY ., DR VENTURA Attending Unavailable HOY ., DR VENTURA Consulting Unavailable [place], DR EDNA Carlson Consulting Unavailable HOY ., [...] Physician Lorenzo Cortez MD Primary Care Provider [phone] NILL, Kobe R Attending Unavailable NILL, Kobe [...] HYDROcodone; Translations: [Vicodin] Drug Allergy 3 [facility] (3 sources) Acetaminophen / HYDROcodone; Translations: [Lortab] Drug Allergy 6 [facility] (1 source) Adhesive agent Drug allergy (disorder) 3 [facility] (3 sources) Amino Acids; Translations: [lisinopril] Drug Allergy 6 [facility] (3 sources) lamoTRIgine; Translations: [LaMICtal] Drug Allergy 3 [facility] (3 sources) Morphine; Translations: [morphine] Drug Allergy 3 [facility] (3 sources) OXcarbazepine; Translations: [Trileptal] Drug Allergy 3 [facility] (1 source) Penicillins Drug allergy (disorder) 3 [facility] (3 sources) Valproate; Translations: [Depakote] Drug Allergy 3 [facility] (12 sources) Acetaminophen / HYDROcodone; Translations: [acetaminophen-hy drocodone] Drug Allergy Edema of pharynx (disorder) [facility] (6 sources) lamoTRIgine; Translations: [lamotrigine] Drug Allergy Cutaneous eruption (morphologic abnormality) [facility] (6 sources) Lisinopril; Translations: [lisinopril] Drug Allergy Edematous skin (disorder) [facility] (16 sources) Morphine; Translations: [morphine] Drug Allergy 4 Vomiting (disorder), GI intolerance [facility] (6 sources) OXcarbazepine; Translations: [oxcarbazepine] Drug Allergy Edema of pharynx (disorder) [facility] (8 sources) Penicillin; Translations: [penicillin] Drug Allergy Cutaneous eruption (morphologic abnormality) [facility] (6 sources) Valproate; Translations: [divalproex sodium] Drug Allergy Edema of pharynx (disorder) [facility] (10 sources) Codeine Drug Allergy 4 [facility] (10 sources) HYDROcodone Drug Allergy 4 [facility] Healthcare Work Phone: (10 sources) Lamotrigine Allergy to substance 4 Rash [facility] (10 sources) Oxcarbazepine Allergy to substance 4 [facility] Healthcare (10 sources) Penicillin G Drug Allergy 4 Hives [facility] (10 sources) Penicillins Propensity to adverse reactions 4 [facility] (10 sources) Valproate Drug Allergy 4 [facility] Medications Current Medications Medication Drug Class(es) [...] at the same time Active Continuous Glucose Superannuation Funds Manager (Dexcom G7 Superannuation Funds Manager) device (7 sources) Start: 09-01-2024 Continuous Glucose Superannuation Funds Manager (Dexcom G7 Superannuation Funds Manager) device Indications: Type 1 diabetes mellitus with [...] by mouth every week Vitamin D, Ergocalciferol, 38750 units capsule Take 1 tablet by mouth [...] Start: 04-09-2019 take 1 capsule by mo [facility] every week Vitamin D = 1 cap(s), [...] 12-24-2023 12-24-2023 Episodic Other aftercare (1 source) [facility] (current) use of insulin; Translations: [FDC CURRENT USE OF INSULIN] Onset: 10-09-2022 Episodic Other aftercare (14 sources) Long-term current use of insulin; Translations: [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] Onset: 01-17-2024 01-17-2024 [...] EDT With: AILYN CHENG, Kobe Davidson Where: [facility] General Surgery [address], [address], [place] [id number]- Medications What How Much When Instructions Unchanged [...] (VOMITING) Tr (more content not included)... Normal [facility] Ambulatory Visit Summary Ambulatory Visit Summary SCAR [...] disorder BMI (more content not included)... Normal [facility] General Surgery Office/Clini c Noteon 01-27-2025 General [...] (Vomiting) penici (more content not included)... Normal [facility] Comment on above: Result Comment: Elec tronically [...] EDT With: AILYN CHENG, Kobe Davidson Where: [facility] General Surgery [address], [address], [place] [id number]- Medications What How Much When Instructions Unchanged [...] lisinopril (Ed (more content not included)... Normal [facility] General Surgery Office/Clini c Noteon 12-23-2024 General [...] (Rash) So (more content not included)... Normal [facility] Comment on above: Result Comment: Elec tronically Signed By: AILYN CHENG, Kobe R\alon\Date and Time Signed: 12/23/24 16:09 EDT Glucose (Bld) [Mass/Vol]on 0 10-30-2024 Glucose Blood, POC 241 mg/dL [facility] Laboratory - Hematology and Cell countson 10-30-2024 HbA1c (Bld) [Mass fraction] 8.1 % [facility] No Panel Informationon 10-30 Interpretation and review of laboratory results Abnormal [facility] Healthcare [facility] Ambulatory Visit Summaryon 0 09-23-2024 Ambulatory Visit [...] (Edematous sk (more content not included)... Normal [facility] Provider Letteron 09-01-2024 Provider Letter Provider Letter September 01, 2024 SCAR JEFFREY [address] [address] : 1980 Dear Ms. Jeffrey, We have been trying to reach you with no success regarding a referral from Dr Cortez. It is important that you return our call upon receiving this letter. Also, at the time of your call, please provide us with your current information. Thank you for your prompt attention to this matter. Sincerely, [facility] General Surgery [phone] Normal [facility] Surgical Pathology Reporton 06-25-2024 Surgical Pathology Report [facility] [address] [place] [address]- Surgical Pathology Report Collected Date/Time: 06/18/2024 15:32 [...] and entirely submitted in one cassette. (DC) DC:[facility] Microscopic Description Microscopic examination performed unless gross only specified. Multiple levels are microscopically examined. Normal [facility] Comment on above: Performed By: #### [id number] #### [facility] [address] [place] [address] Ambulatory Visit Summaryon 1 Ambulatory Visit Summary [...] for choosing us for your care. Malia [facility] General Surgery Office/Clini c Noteon 06-24-2024 General [...] Years., 06/03/20 (more content not included)... Normal [facility] Comment on above: Result Comment: Elec tronically Signed By: AILYN CHENG, Kobe Davidson\.br\Date and Time Signed: 06/24/24 14:17 EDT Glucose (Bld) [Mass/Vol]on 1 Glucose Blood, POC 361 mg/dL [facility] HbA1c (Bld) [Mass fraction]o n 06-23-2024 [facility] Laboratory - Hematology and Cell countson 06-23-2024 HbA1c (Bld) [Mass fraction] 7.9 % [facility] Ambulatory Visit Summaryon 1 Ambulatory Visit [...] EDT With: AILYN CHENG, Kobe Davidson Where: [facility], [address], [place] [address]- Medications What How Much When Instructions Unchanged [...] Diastasis recti (more content not included)... Normal [facility] General Surgery Office/Clini c Noteon 06-18-2024 General [...] ER Tab (more content not included)... Normal [facility] Comment on above: Result Comment: Elec tronically [...] PM EDT With: Kobe ROBERTSON MD Where: [facility] Surgery [address], [address], [place] [address]- Medications What How Much When Instructions Unchanged [...] (Rash) Pro (more content not included)... Normal [facility] CREATININEon 01-22-2023 Creatinine [Mass/Vol] 0.98 mg/dL Normal 0.55-1.02 [facility] Comment on above: Performed By: #### C NILSON #### [facility] [address] [place] [address] Dr. Keeley Hoskins EGFR-AF [place]IZ[place] >60 Normal >=60 [facility] Comment on above: Performed By: #### C NILSON #### [facility] [address] [place] [address] [address] Keeley Hoskins EGFR-NON AF [place]IZ[place] >60 Normal >=60 [facility] Comment on above: Performed By: #### C NILSON #### [facility] [address] [place] [address] NECK [address] W [...] EDNA GOMEZ Date: 2023-01-22 11:08 Normal [facility] MRI CSPINE WO CONon 01-23-20 MRI CSPINE [...] moderate left foraminal stenosis Electronically authenticated by: ENDA GOMEZ Date: 2023-01-22 11:04 Normal [facility] CT FACIAL BONES WO CONon [...] FLORA DERAS Date: 2023-01-04 07:25 Normal [facility] XR CSPINE MIN 4 VIEWSon 12-10 XR [...] by: FLORA DERAS Date: 2023-01-04 07:12 Normal [facility] C-PEPTIDE, SERUMon C-Peptide, Serum <0.1 Critically low 1.1-4.4 [facility] Comment on above: Result Comment: C-Pe ptide reference interval is for fasting patients. Performed By: #### C PEPT #### [facility] [address] [place] [address] [address] Keeley Hoskins BNPon 10-06-2022 Natriuretic peptide B (Bld) [Mass/Vol] 20.0 pg/mL Normal <=450.0 [facility] Comment on above: Performed By: #### R ENAL, LIPID #### [facility] [address] [place] [address] [address] Keeley Hoskins LIPID PROFILEon 10-06-2022 CHOL-HDL RATIO NORM SEE BELOW Normal [facility] Comment on above: Result Comment: 3.3 - 4.4 LOW RISK 4.4 - 7.1 AVERAGE RISK 7.1 - 11.0 MODERATE RISK >11.0 HIGH RISK Performed By: #### R ENAL, LIPID #### [facility] [address] [place] [address] Dr. Keeley Hoskins Cholesterol [Mass/Vol] 156 mg/dL Normal <=200 [facility] Comment on above: Performed By: #### R ENAL, LIPID #### [facility] [address] [place] [address] [address] Keeley Hoskins Cholesterol in HDL [Mass/Vol] 32 mg/dL Critically low 40-60 [facility] Comment on above: Performed By: #### R ENAL, LIPID #### [facility] [address] [place] [address] [address] Keeley Hoskins Cholesterol in LDL [Mass/Vol] 71.8 mg/dL Normal [facility] Comment on above: Performed By: #### R ENAL, LIPID #### [facility] [address] [place] [address] [address] Keeley Hoskins Cholesterol.total/C holesterol in HDL [Mass ratio] 4.9 {ratio} Normal [facility] Comment on above: Performed By: #### R ENAL, LIPID #### [facility] [address] [place] [address] [address] Keeley Hoskins HDL NORMAL > or = 60 mg/dl - LO W CARDIOVASCULAR RISK <40 mg/dl - HIGH CARDIOVASCULAR RISK Normal [facility] Comment on above: Performed By: #### R ENAL, LIPID #### [facility] [address] [place] [address] [address] Keeley Hoskins LDL CALC NORMAL SEE BELOW Normal [facility] Comment on above: Result Comment: <100 mg/dl OPTIMAL 100 - 129 mg/dl NEAR OR ABOVE OPTIMAL 130 - 159 mg/dl BORDERLINE HIGH 160 - 189 mg/dl HIGH >190 mg/dl VERY HIGH Performed By: #### R ENAL, LIPID #### [facility] [address] [place] [address] [address] Keeley Hoskins Triglyceride [Mass/Vol] 261 mg/dL Critically high <=150 [facility] Comment on above: Performed By: #### R ENAL, LIPID #### [facility] [address] [place] [address] [address] Keeley Hoskins VLDL CALC 52.2 mg/dL Normal [facility] Comment on above: Performed By: #### R ENAL, LIPID #### [facility] [address] [place] [address] [address] Keeley Hoskins MICROALB CREAT RATIO RANDOMo n 01-27-2023 mALB 4.2 mg/L Normal <=30.0 [facility] Comment on above: Performed By: #### M CRR #### [facility] [address] [place] [address] [address] Keeley Hoskins URINE CREAT <13.00 Critically low 20.00-300.00 The [facility] Comment on above: Performed By: #### M CRR #### [facility] [address] [place] [address] [address] Keeley Hoskins RENAL FUNCTION PANELon 10-06 Albumin [Mass/Vol] 4.0 g/dL Normal 3.4-5.0 [facility] Comment on above: Performed By: #### R ENLISSY, LIPID #### [facility] [address] [place] [address] Dr. Keeley Hoskins Calcium [Mass/Vol] 9.3 mg/dL Normal 8.5-10.1 [facility] Comment on above: Performed By: #### R ENLISSY, LIPID #### [facility] [address] [place] [address] [address] Keeley Hoskins Chloride [Moles/Vol] 101 mmol/L Normal 98-107 [facility] Comment on above: Performed By: #### R ENLISSY, LIPID #### [facility] [address] [place] [address] Dr. Keeley Hoskins CO2 [Moles/Vol] 28.9 mmol/L Normal 21.0-32.0 [facility] Comment on above: Performed By: #### R ENAL, LIPID #### [facility] [address] [place] [address] Dr. Keeley Hoskins Creatinine [Mass/Vol] 0.81 mg/dL Normal 0.55-1.02 [facility] Comment on above: Performed By: #### R ENAL, LIPID #### [facility] [address] [place] [address] Dr. Keeley Hoskins EGFR-AF [place]IZ[place] >60 Normal >=60 [facility] Comment on above: Performed By: #### R ENAL, LIPID #### [facility] [address] [place] [address] [address] Keeley Hoskins EGFR-NON AF [place]IZEN [place] >60 Normal >=60 [facility] Comment on above: Performed By: #### R ENAL, LIPID #### [facility] [address] [place] [address] [address] Keeley Hoskins Glucose [Mass/Vol] 123 mg/dL Critically high 74-106 T [facility] Comment on above: Performed By: #### R ENAL, LIPID #### [facility] [address] [place] [address] [address] Keeley Hoskins Phosphate [Mass/Vol] 3.9 mg/dL Normal 2.6-4.7 [facility] Comment on above: Performed By: #### R ENAL, LIPID #### [facility] [address] [place] [address] [address] Keeley Hoskins Potassium [Moles/Vol] 4.4 mmol/L Normal 3.5-5.1 [facility] Comment on above: Performed By: #### R ENAL, LIPID #### [facility] [address] [place] [address] [address] Keeley Hoskins Sodium [Moles/Vol] 140 mmol/L Normal 136-145 [facility] Comment on above: Performed By: #### R ENLISSY, LIPID #### [facility] [address] [place] [address] [address] Keeley Hoskins Urea nitrogen [Mass/Vol] 12.0 mg/dL Normal 7.0-18.0 [facility] Comment on above: Performed By: #### R ENAL, LIPID #### [facility] [address] [place] [address] [address] Keeley Hoskins VITAMIN D 25 OHon 10-06-2022 VIT D 25-OH 37.8 ng/mL Normal [facility] Comment on above: Performed By: #### R ENAL, LIPID #### [facility] [address] [place] [address] [address] Keeley Hoskins VIT D RANGES SEE BELOW Normal [facility] Comment on above: Result Comment: <20 ng/mL Vit D deficient 20 - <30 ng/mL Vit D insufficient 30 - 100 ng/mL Vit D sufficient >100 ng/mL Potential Toxicity Performed By: #### R ENAL, LIPID #### [facility] [address] [place] [address] Dr. Keeley Hoskins NM STRESS/REST MULTIon 04-17 NM STRESS/REST MULTI Patient: SCAR JEFFREY Exam Date: 04/17/2022 : 1980 Gender:F Ordering : DR LORENZO CORTEZ . Admission #: [id number] Family : Order #: [id number] CLICK HERE TO VIEW EXAM RADIOLOGY REPORT [...] MD on 04/18/2022 at 11:44 Normal [facility] ECHOCARDIO M/2D COMPLETEon 0 03-30-2022 ECHOCARDIO M/2D COMPLETE Patient: SCAR JEFFREY Exam Date: 03/30/2022 : 1980 Gender:F Ordering : DR LORENZO CORTEZ . Admission #: [id number] Family : Order #: [id number] CLICK HERE TO VIEW EXAM ECHOCARDIOGRAM REPORT [...] M.D. on 03/30/2022 at 13:50 Normal [facility] LIPID PROFILEon 03-30-2022 CHOL-HDL RATIO NORM SEE BELOW Normal [facility] Comment on above: Result Comment: 3.3 - 4.4 LOW RISK 4.4 - 7.1 AVERAGE RISK 7.1 - 11.0 MODERATE RISK >11.0 HIGH RISK Performed By: #### R ENLISSY, LIPID #### [facility] [address] [place] [address] Dr. Keeley Hoskins Cholesterol [Mass/Vol] 140 mg/dL Normal <=200 [facility] Comment on above: Performed By: #### R ENLISSY, LIPID #### [facility] [address] [place] [address] [address] Keeley Hoskins Cholesterol in HDL [Mass/Vol] 30 mg/dL Critically low 40-60 [facility] Comment on above: Performed By: #### R ENLISSY, LIPID #### [facility] [address] [place] [address] [address] Keeley Hoskins Cholesterol in LDL [Mass/Vol] 69.2 mg/dL Normal [facility] Comment on above: Performed By: #### R ENLISSY, LIPID #### [facility] [address] [place] [address] Dr. Keeley Hoskins Cholesterol.total/C holesterol in HDL [Mass ratio] 4.7 {ratio} Normal [facility] Comment on above: Performed By: #### R ENLISSY, LIPID #### [facility] [address] [place] [address] [address] Keeley Hoskins HDL NORMAL > or = 60 mg/dl - LO W CARDIOVASCULAR RISK <40 mg/dl - HIGH CARDIOVASCULAR RISK Normal [facility] Comment on above: Performed By: #### R ENLISSY, LIPID #### [facility] [address] [place] [address] Dr. Keeley Hoskins LDL CALC NORMAL SEE BELOW Normal [facility] Comment on above: Result Comment: <100 mg/dl OPTIMAL 100 - 129 mg/dl NEAR OR ABOVE OPTIMAL 130 - 159 mg/dl BORDERLINE HIGH 160 - 189 mg/dl HIGH >190 mg/dl VERY HIGH Performed By: #### R ENLISSY, LIPID #### [facility] [address] [place] [address] [address] Keeley Hoskins Triglyceride [Mass/Vol] 204 mg/dL Critically high <=150 [facility] Comment on above: Performed By: #### R ENAL, LIPID #### [facility] [address] [place] [address] [address] Keeley Hoskins VLDL CALC 40.8 mg/dL Normal [facility] Comment on above: Performed By: #### R ENAL, LIPID #### [facility] [address] [place] [address] [address] Keeley Hoskins MICROALB CREAT RATIO RANDOMo n 03-30-2022 mALB 8.3 mg/L Normal <=30.0 [facility] Comment on above: Performed By: #### M CRR #### [facility] [address] [place] [address] [address] Keeley Hoskins MALB CR RATIO 466.0 mg/g Critically high 0.0-29.9 [facility] Comment on above: Performed By: #### M CRR #### [facility] [address] [place] [address] [address] Keeley Hoskins MALB CR RATIO RANGE SEE BELOW Normal [facility] Comment on above: Result Comment: NO M ICROALBUMINURIA 0-29 MG/G CLINICAL MICROALBUMINURIA 30-300 MG/G MACROALBUMINURIA >300 MG/G Performed By: #### M CRR #### [facility] [address] [place] [address] [address] Keeley Hoskins URINE CREAT 17.81 mg/dL Critically low 20.00-300.00 [facility] Comment on above: Performed By: #### M CRR #### [facility] [address] [place] [address] [address] Keeley Hoskins RENAL FUNCTION PANELon 03-30 Albumin [Mass/Vol] 4.2 g/dL Normal 3.4-5.0 [facility] Comment on above: Performed By: #### R ENAL, LIPID #### [facility] [address] [place] [address] [address] Keeley Hoskins Calcium [Mass/Vol] 9.2 mg/dL Normal 8.5-10.1 [facility] Comment on above: Performed By: #### R ENAL, LIPID #### [facility] [address] [place] [address] [address] Keeley Hoskins Chloride [Moles/Vol] 98 mmol/L Normal 98-107 [facility] Comment on above: Performed By: #### R ENAL, LIPID #### [facility] [address] [place] [address] [address] Keeley Hoskins CO2 [Moles/Vol] 28.6 mmol/L Normal 21.0-32.0 [facility] Comment on above: Performed By: #### R ENAL, LIPID #### [facility] [address] [place] [address] [address] Keeley Hoskins Creatinine [Mass/Vol] 1.17 mg/dL Critically high 0.55-1.02 [facility] Comment on above: Performed By: #### R ENAL, LIPID #### [facility] [address] [place] [address] [address] Keeley Hoskins EGFR-AF [place]IZ[place] >60 Normal >=60 [facility] Comment on above: Performed By: #### R ENAL, LIPID #### [facility] [address] [place] [address] [address] Keeley Hoskins EGFR-NON AF CITIZEN [place] 50 mL/min/1.73m2 Critically low >=60 [facility] Comment on above: Performed By: #### R ENAL, LIPID #### [facility] [address] [place] [address] [address] Keeley Hoskins Glucose [Mass/Vol] 212 mg/dL Critically high 74-106 [facility] Comment on above: Performed By: #### R ENAL, LIPID #### [facility] [address] [place] [address] [address] Keeley Hoskins Phosphate [Mass/Vol] 4.0 mg/dL Normal 2.6-4.7 [facility] Comment on above: Performed By: #### R ENAL, LIPID #### [facility] [address] [place] [address] [address] Keeley Hoskins Potassium [Moles/Vol] 4.1 mmol/L Normal 3.5-5.1 [facility] Comment on above: Performed By: #### R ENAL, LIPID #### [facility] [address] [place] [address] [address] Keeley Hoskins Sodium [Moles/Vol] 136 mmol/L Normal 136-145 [facility] Comment on above: Performed By: #### R ENAL, LIPID #### [facility] [address] [place] [address] Dr. Keeley Hoskins Urea nitrogen [Mass/Vol] 16.0 mg/dL Normal 7.0-18.0 [facility] Comment on above: Performed By: #### R ENAL, LIPID #### [facility] [address] [place] [address] Dr. Keeley Hoskins VITAMIN D 25 OHon 03-30-2022 VIT D 25-OH 33.8 ng/mL Normal [facility] Comment on above: Performed By: #### V ITAD #### [facility] [address] [place] [address] Dr. Keeley Hoskins VIT D RANGES SEE BELOW Normal [facility] Comment on above: Result Comment: <20 ng/mL Vit D deficient 20 - <30 ng/mL Vit D insufficient 30 - 100 ng/mL Vit D sufficient >100 ng/mL Potential Toxicity Performed By: #### V ITAD #### [facility] [address] [place] [address] Dr. Keeley Hoskins BNPon 03-16-2022 Natriuretic peptide B (Bld) [Mass/Vol] 20.0 pg/mL Normal <=450.0 [facility] Comment on above: Performed By: #### T 7, TSH, CMP, BNP #### [facility] [address] [place] [address] Dr. Keeley Hoskins CBC AUTO DIFFon 03-16-2022 BASO # 0.1 103/ul Normal 0.0-0.1 [facility] Comment on above: Performed By: #### R ENAL, LIPID #### [facility] [address] [place] [address] Dr. Keeley Hoskins Basophils/100 WBC (Bld) 1.0 % Normal 0.2-2.0 [facility] Comment on above: Performed By: #### R ENAL, LIPID #### [facility] [address] [place] [address] Dr. Keeley Hoskins EO # 0.1 103/ul Normal 0.0-0.7 [facility] Comment on above: Performed By: #### R ENAL, LIPID #### [facility] [address] [place] [address] Dr. Keeley Hoskins Eosinophils/100 WBC (Bld) 1.8 % Normal 0.9-7.0 [facility] Comment on above: Performed By: #### R ENAL, LIPID #### [facility] [address] [place] [address] Dr. Keeley Hoskins Erythrocyte distribution width (RBC) [Ratio] 12.3 % Normal 11.0-15.0 [facility] Comment on above: Performed By: #### R ENAL, LIPID #### [facility] [address] [place] [address] Dr. Keeley Hoskins Hematocrit (Bld) [Volume fraction] 37.3 % Normal 36.0-48.0 [facility] Comment on above: Performed By: #### R ENAL, LIPID #### [facility] [address] [place] [address] Dr. Keeley Hoskins Hemoglobin (Bld) [Mass/Vol] 12.7 g/dL Normal 12.0-16.0 [facility] Comment on above: Performed By: #### R ENAL, LIPID #### [facility] [address] [place] [address] Dr. Keeley Hoskins IG # 0.04 10e3/ul Critically high 0.00-0.03 [facility] Comment on above: Performed By: #### R ENAL, LIPID #### [facility] [address] [place] [address] Dr. Keeley Hoskins IG % 0.6 % Critically high 0.0-0.5 [facility] Comment on above: Performed By: #### R ENAL, LIPID #### [facility] [address] [place] [address] Dr. Keeley Hoskins LYMPH # 1.8 103/ul Normal 1.2-3.8 [facility] Comment on above: Performed By: #### R ENAL, LIPID #### [facility] [address] [place] [address] Dr. Keeley Hoskins Lymphocytes/100 WBC (Bld) 26.4 % Normal 20.5-60.0 [facility] Comment on above: Performed By: #### R ENAL, LIPID #### [facility] [address] [place] [address] Dr. Keeley Hoskins MANUAL DIFF REQ NO Normal [facility] Comment on above: Performed By: #### R ENAL, LIPID #### [facility] [address] [place] [address] Dr. Keeley Hoskins MCH (RBC) [Entitic mass] 28.0 pg Normal 26.7-34.0 [facility] Comment on above: Performed By: #### R ENAL, LIPID #### [facility] [address] [place] [address] Dr. Keeley Hoskins MCHC (RBC) [Mass/Vol] 34.0 g/dL Normal 29.9-35.2 [facility] Comment on above: Performed By: #### R ENAL, LIPID #### [facility] [address] [place] [address] Dr. Keeley Hoskins MCV (RBC) [Entitic vol] 82.2 fL Normal 81.0-99.0 [facility] Comment on above: Performed By: #### R ENAL, LIPID #### [facility] [address] [place] [address] Dr. Keeley Hoskins MONO # 0.5 103/ul Normal 0.3-0.8 [facility] Comment on above: Performed By: #### R ENAL, LIPID #### [facility] [address] [place] [address] Dr. Keeley Hoskins Monocytes/100 WBC (Bld) 6.6 % Normal 1.7-12.0 [facility] Comment on above: Performed By: #### R ENAL, LIPID #### [facility] [address] [place] [address] Dr. Keeley Hoskins NEUT # 4.4 103/ul Normal 1.4-6.5 [facility] Comment on above: Performed By: #### R ENAL, LIPID #### [facility] [address] [place] [address] Dr. Keeley Hoskins Neutrophils/100 WBC (Bld) 63.6 % Normal 43.0-75.0 [facility] Comment on above: Performed By: #### R ENLISSY, LIPID #### [facility] [address] [address] [address] Keeley Hoskins Platelet mean volume (Bld) [Entitic vol] 10.4 fL Normal 9.5-13.5 [facility] Comment on above: Performed By: #### R SEGUN, LIPID #### [facility] [address] [address] [address] Keeley Hoskins PLT 283 103/ul Normal 150-450 [facility] Comment on above: Performed By: #### R SEGUN, LIPID #### [facility] [address] [address] [address] Keeley Hoskins RBC 4.54 106/ul Normal 4.20-5.40 [facility] Comment on above: Performed By: #### R SEGUN, LIPID #### [facility] [address] [address] [address] Keeley Hoskins WBC 6.9 103/ul Normal 4.0-11.0 [facility] Comment on above: Performed By: #### R SEGUN, LIPID #### [facility] [address] [address] [address] Keeley Hoskins FREE THYROXINE INDEX T7on FTI 2.91 Normal 1.30-4.50 [facility] Comment on above: Performed By: #### R ENLISSY, LIPID #### [facility] [address] [place] [address] Dr. Keeley Hoskins T3U 30.0 % Normal 30.0-39.0 [facility] Comment on above: Performed By: #### R ENLISSY, LIPID #### [facility] [address] [address] [address] Keeley Hoskins T4 [Mass/Vol] 9.70 ug/dL Normal 4.80-13.90 [facility] Comment on above: Performed By: #### R ENLISSY, LIPID #### [facility] [address] [address] [address] Keeley Hoskins IRONon 03-16-2022 Iron [Mass/Vol] 72.0 ug/dL Normal 50.0-170.0 [facility] Comment on above: Performed By: #### I MARY #### [facility] [address] [address] [address] Keeley Hoskins PROF 14(COMP METB)on 022 Albumin [Mass/Vol] 3.9 g/dL Normal 3.4-5.0 [facility] Comment on above: Performed By: #### T 7, TSH, CMP, BNP #### [facility] [address] [address] [address] Keeley Hoskins Albumin/Globulin [Mass ratio] 1.1 {ratio} Normal [facility] Comment on above: Performed By: #### T 7, TSH, CMP, BNP #### [facility] [address] [place] [address] Dr. Keeley Hoskins ALP [Catalytic activity/Vol] 143 U/L Critically high 46-116 [facility] Comment on above: Performed By: #### T 7, TSH, CMP, BNP #### [facility] [address] [place] [address] Dr. Keeley Hoskins ALT [Catalytic activity/Vol] 43 U/L Normal 14-59 [facility] Comment on above: Performed By: #### T 7, TSH, CMP, BNP #### [facility] [address] [place] [address] Dr. Keeley Hoskins Anion gap [Moles/Vol] 15.6 mmol/L Normal [facility] Comment on above: Performed By: #### T 7, TSH, CMP, BNP #### [facility] [address] [place] [address] Dr. Keeley Hoskins AST [Catalytic activity/Vol] 23 U/L Normal 15-37 [facility] Comment on above: Performed By: #### T 7, TSH, CMP, BNP #### [facility] [address] [place] [address] Dr. Keeley Hoskins Bilirubin [Mass/Vol] 0.6 mg/dL Normal 0.2-1.0 [facility] Comment on above: Performed By: #### T 7, TSH, CMP, BNP #### [facility] [address] [place] [address] Dr. Keeley Hoskins Calcium [Mass/Vol] 9.2 mg/dL Normal 8.5-10.1 [facility] Comment on above: Performed By: #### T 7, TSH, CMP, BNP #### [facility] [address] [address] [address] Keeley Hoskins Chloride [Moles/Vol] 96 mmol/L Critically low 98-107 [facility] Comment on above: Performed By: #### T 7, TSH, CMP, BNP #### [facility] [address] [place] [address] Dr. Keeley Hoskins CO2 [Moles/Vol] 25.1 mmol/L Normal 21.0-32.0 [facility] Comment on above: Performed By: #### T 7, TSH, CMP, BNP #### [facility] [address] [place] [address] Dr. Keeley Hoskins Creatinine [Mass/Vol] 1.14 mg/dL Critically high 0.55-1.02 [facility] Comment on above: Performed By: #### T 7, TSH, CMP, BNP #### [facility] [address] [place] [address] Dr. Keeley Hoskins EGFR-AF CITIZEN [place] >60 Normal >=60 [facility] Comment on above: Performed By: #### T 7, TSH, CMP, BNP #### [facility] [address] [place] [address] Dr. Keeley Hoskins EGFR-NON AF CITIZEN OF [place] 52 mL/min/1.73m2 Critically low >=60 [facility] Comment on above: Performed By: #### T 7, TSH, CMP, BNP #### [facility] [address] [place] [address] Dr. Keeley Hoskins Globulin (S) [Mass/Vol] 3.4 g/dL Normal [facility] Comment on above: Performed By: #### T 7, TSH, CMP, BNP #### [facility] [address] [place] [address] Dr. Keeley Hoskins Glucose [Mass/Vol] 438 mg/dL Critically high 74-106 [facility] Comment on above: Performed By: #### T 7, TSH, CMP, BNP #### [facility] [address] [place] [address] Dr. Keeley Hoskins Potassium [Moles/Vol] 4.7 mmol/L Normal 3.5-5.1 [facility] Comment on above: Performed By: #### T 7, TSH, CMP, BNP #### [facility] [address] [place] [address] Dr. Keeley Hoskins Protein [Mass/Vol] 7.3 g/dL Normal 6.4-8.2 [facility] Comment on above: Performed By: #### T 7, TSH, CMP, BNP #### [facility] [address] [place] [address] Dr. Keeley Hoskins Sodium [Moles/Vol] 132 mmol/L Critically low 136-145 [facility] Comment on above: Performed By: #### T 7, TSH, CMP, BNP #### [facility] [address] [place] [address] Dr. Keeley Hoskins Urea nitrogen [Mass/Vol] 17.0 mg/dL Normal 7.0-18.0 [facility] Comment on above: Performed By: #### T 7, TSH, CMP, BNP #### [facility] [address] [place] [address] Dr. Keeley Hoskins Urea nitrogen/Creatinine [Mass ratio] 14.9 mg/mg Normal [facility] Comment on above: Performed By: #### T 7, TSH, CMP, BNP #### [facility] [address] [place] [address] Dr. Keeley Hoskins TSHon 03-16-2022 TSH 2.240 uIU/mL Normal 0.358-3.740 [facility] Comment on above: Performed By: #### R ENAL, LIPID #### [facility] [address] [place] [address] Dr. Keeley Hoskins KNEE RIGHT 3 [facility] KNEE RIGHT 3 [facility] Department of Radiology [address] [place] [phone] ===== Patient Name: SCAR JEFFREY : 1980 Sex: F Age: Race: White Pt. Location: Patient Status: O Ordered Date: 06/13/2021 9:05:00 AM Completed Date: 06/13/2021 09:13 AM Requesting Provider: TONYA CENTENO Attending Provider: TONYA CENTENO Report Copy To: Signs & Symptoms: M25.561 Pain in right knee I10 History: Comments: standing , Weight Bearing?: Y Exam: KNEE RIGHT 3 [facility] ===== KNEE RIGHT 3 [facility] 06/13/2021 9:13 AM CLINICAL INDICATIONS: M25.561 [...] pathology Electronically signed: Toyin Juan. Transcribed by: [email or web address], User Resident: Electronically Signed by: TOYIN JUAN @ 06/13/2021 11:03 AM Normal [facility] Comment on above: Order Comment: stand ing , Weight Bearing?: Y KNEE RIGHT 3 [facility] 1 KNEE RIGHT 3 [facility] Department of Radiology [address] [place] [phone] ===== Patient Name: SCAR JEFFREY : 1980 Sex: F Age: Race: White Pt. Location: Patient Status: O Ordered Date: 11/15/2020 10:15:00 AM Completed Date: 11/15/2020 10:33 AM Requesting Provider: TONYA CENTENO Attending Provider: TONYA CENTENO Report Copy To: Signs & Symptoms: M25.561 Pain in right knee I10 History: [place] Comments: evaluate Exam: KNEE RIGHT 3 [facility] ===== KNEE RIGHT 3 [facility] 11/15/2020 10:33 AM CLINICAL INDICATIONS: M25.561 [...] reports Electronically signed: Naila Puentes. Transcribed by: [email or web address], User Resident: GREGG LEMONS Electronically Signed by: NAILA PUENTES @ 11/15/2020 11:25 AM I personally read this/these film(s) with this resident Normal [facility] Comment on above: Order Comment: evalu ate TIBIA FIBULA RIGHTon 021 TIBIA FIBULA RIGHT [facility] Department of Radiology [address] [place] [phone] ===== Patient Name: SCAR JEFFREY : [...] abnormality. Electronically signed: Naila Puentes. Transcribed by: [email or web address], User Resident: Electronically Signed by: NAILA PUENTES @ 11/15/2020 11:37 AM Normal [facility] Comment on above: Order Comment: evalu ate Vital Signs Date Time Vital Sign Value Performing Clinician Facility 10-30-2024 10:00-0500 Body height 166.4 cm Zay Gonzalez MD Work Phone: [facility] 10-30-2024 10:00-0500 Body mass index (BMI) [Ratio] 40.81 kg/m2 Zay Gonzalez MD Work Phone: [facility] 10-30-2024 10:00-0500 Body weight 112.95 kg Zay Gonzalez MD Work Phone: [facility] 10-30-2024 10:00-0500 Diastolic blood pressure 68 mm[Hg] Zay Gonzalez MD Work Phone: [facility] 10-30-2024 10:00-0500 Heart rate 73 /min Zay Gonzalez MD Work Phone: [facility] 10-30-2024 10:00-0500 Respiratory rate 18 /min Zay Gonzalez MD Work Phone: [facility] 10-30-2024 10:00-0500 SaO2% (BldA) [Mass fraction] 97 % Zay Gonzalez MD Work Phone: [facility] 10-30-2024 10:00-0500 Systolic blood pressure 122 mm[Hg] Zay Gonzalez MD Work Phone: [facility] 10-21-2024 09:27-0500 Body height 166.4 cm Shara Metcalf MD Work Phone: [facility] 10-21-2024 09:27-0500 Body mass index (BMI) [Ratio] 42.28 kg/m2 Shara Metcalf MD Work Phone: [facility] 10-21-2024 09:27-0500 Body weight 117.03 kg Shara Metcalf MD Work Phone: [facility] 10-21-2024 09:27-0500 Diastolic blood pressure 63 mm[Hg] Shara Metcalf MD Work Phone: [facility] 10-21-2024 09:27-0500 Heart rate 82 /min Shara Metcalf MD Work Phone: [facility] 10-21-2024 09:27-0500 Systolic blood pressure 147 mm[Hg] Shara Metcalf MD Work Phone: [facility] 09-23-2024 13:49-0500 Blood Pressure Location Kobe NILL [facility] 09-23-2024 13:49-0500 Diastolic blood pressure 64 mm[Hg] Kobe NILL [facility] 09-23-2024 13:49-0500 Heart rate 72 /min Kobe NILL [facility] 09-23-2024 13:49-0500 Respiratory rate 16 /min Kobe NILL [facility] 09-23-2024 13:49-0500 Systolic blood pressure 146 mm[Hg] Kobe NILL [facility] 06-23-2024 10:10-0400 Body height 166.4 cm Zay Gonzalez MD Work Phone: [facility] 06-23-2024 10:10-0400 Body mass index (BMI) [Ratio] 59.16 kg/m2 Zay Gonzalez MD Work Phone: [facility] 06-23-2024 10:10-0400 Body weight 163.75 kg Zay Gonzalez MD Work Phone: [facility] 06-23-2024 10:10-0400 Diastolic blood pressure 60 mm[Hg] Zay Gonzalez MD Work Phone: [facility] 06-23-2024 10:10-0400 Heart rate 98 /min Zay Gonzalez MD Work Phone: [facility] 06-23-2024 10:10-0400 Respiratory rate 18 /min Zay Gonzalez MD Work Phone: [facility] 06-23-2024 10:10-0400 Systolic blood pressure 160 mm[Hg] Zay Gonzalez MD Work Phone: [facility] 06-03-2024 16:01-0400 Blood Pressure Location Kobe NILL [facility] 06-03-2024 16:01-0400 Diastolic blood pressure 70 mm[Hg] Kobe NILL [facility] 06-03-2024 16:01-0400 Heart rate 72 /min Kobe NILL [facility] 06-03-2024 16:01-0400 Respiratory rate 16 /min Kobe NILL [facility] 06-03-2024 16:01-0400 Systolic blood pressure 132 mm[Hg] Kobe NILL [facility] Encounters Encounter Date Encounter Type Care Provider Facility Start: 03-24-2025 ambulatory Kobe R NILL Facility :[facility] Start: 02-03-2025 ambulatory Castillo Rollins acility:[facility] Start: 01-30-2025 End: 01-30-2025 ambulatory ZAY GONZALEZ Not Available Start: 01-27-2025 End: 01-27-2025 ambulatory Kobe R NILL Facility:[facility] Start: 01-27-2025 End: 01-27-2025 Patient encounter procedure Kobe R NILL [facility] Start: 12-23-2024 End: 12-23-2024 ambulatory Kobe R NILL Facility:[facility] Start: 11-25-2024 End: 11-25-2024 ambulatory EMANUEL FIORE Not Available Start: 10-30-2024 End: 10-30-2024 Bamboo sumeet Gonzalez MD Work Phone: [facility] Start: 10-30-2024 End: 10-30-2024 Bamboo flowsheet Zay Gonzalez MD Work Phone: [facility] Start: 10-30-2024 End: 10-30-2024 Telephone encounter Zay Gonzalez MD Work Phone: [facility] Start: 10-30-2024 End: 10-30-2024 Office outpatient visit 40 minutes Zay Gonzalez MD Work Phone: [facility] Comment on above: Type 1 [...] Start: 09-23-2024 End: 09-23-2024 ambulatory Kobe ROBERTSON Facility:[facility] Start: 09-23-2024 End: 09-23-2024 Patient encounter procedure Kobe Davidson [facility] Start: 06-24-2024 End: 06-24-2024 ambulatory Kobe ATKINSONL Facility:[facility] Start: 06-24-2024 End: 06-24-2024 Patient encounter procedure Kobe Lety ATKINSONL [facility] Start: 06-23-2024 End: 06-23-2024 Bamboo flowsheet Zay Gonzalez MD Work Phone: [facility] Start: 06-23-2024 End: 06-23-2024 Bamboo flowsheet Zay Gonzalez MD Work Phone: [facility] Start: 06-23-2024 End: 06-23-2024 Office outpatient visit 40 minutes Zay Gonzalez MD Work Phone: [facility] Comment on above: Type 1 diabetes bar itus with hyperglycemia (HCC) ([facility]/HCC) (Primary Dx); Vitamin D deficiency; Encounter for dietary consultation; Insulin long-term use ([facility]); Microalbuminuria; Insulin pump in place; Encounter for fitting or adjustment of insulin pump; Primary hypertension ([facility]/HCC); 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 ([facility]/HCC) Start: 06-23-2024 End: 06-23-2024 ambulatory ZAY GONZALEZ Not Available Start: 06-18-2024 End: 06-18-2024 Lab Drop off Kobe Lety ATKINSONL [facility] Start: 06-18-2024 End: 06-18-2024 ambulatory Kobe ATKINSONL Facility:[facility] Start: 06-18-2024 End: 06-18-2024 [facility] Start: 06-03-2024 End: 06-03-2024 ambulatory [facility] Cortez [facility] Start: 06-03-2024 End: 06-03-2024 Patient encounter procedure Kobe ROBERTSON [facility] Start: 01-22-2023 End: 01-23-[address] LORENZO [...] Start: 10-15-2020 End: 11-01-2020 ambulatory TONYA CENTENO Facility:[facility] Procedures Date Procedure Procedure Detail Performing [...] procedure 01/30/2025 10:20 AM EDT Office Visit [facility] [address] [place] [address] Zay Gonzalez MD [address] [place] [address] [facility] Start: 10-30-2024 End: 10-30-2024 Patient encounter procedure [facility] Comment on above: Arrived Start: 10-27-2024 End: 10-27-2024 Patient encounter procedure 10/27/2024 10:10 AM EST Office Visit [facility] [address] [place] [address] Zay Gonzalez MD [address] [place] [address] [facility] Start: 10-21-2024 End: 10-21-2024 Patient encounter procedure 10/21/2024 9:50 AM EST Office Visit [facility] [address] [facility] [address] [place] [id number] Shara Metcalf MD [address] [place] [address] Arrived [facility] Comment on above: Arrived Start: 06-23-2024 End: 06-23-2024 Patient encounter procedure 06/23/2024 10:40 AM EDT Office Visit [facility] [address] [place] [address] Zay Gonzalez MD [address] [place] [address] Type 1 diabetes mellitus with hyperglycemia (HCC) (CMS/HCC) [facility] Comment on above: Type 1 diabetes bar itus with hyperglycemia (HCC) ([facility]/HCC) Payers Date Payer Category Payer Self-pay 2021 Private Health Insurance flower [id number] 2019 Medicare (Managed Care) [employer] Katelynn [employer] [id number] 2017 Medicaid [id number] 1978 Unknown [id number] 2.16.840.1.787266.3.579.2. 647 1978 Unknown [id number] 2.16.840.1.248253.3.579.2. 593 1978 Unknown [id number] 2.16.840.1.284637.3.579.2. 593 1978 Unknown [id number] 2.16.840.1.057928.3.579.2. 593 1978 Unknown [id number] 2.16.840.1.166477.3.579.2. 593 1978 Unknown [id number] 2.16.840.1.187504.3.579.2. 593 1978 Unknown [id number] 2.16.840.1.276326.3.579.2. 593 1978 Unknown [id number] 2.16.840.1.349861.3.579.2. 593 1978 Unknown [id number] 2.16.840.1.090630.3.579.2. 59 1978 Unknown [id number] 2.16.840.1.177791.3.579.2. 593 1978 Unknown [id number] 2.16.840.1.726687.3.579.2. 72 1978 Unknown [id number] 2.16.840.1.052900.3.579.2. 72 1978 Unknown [id number] 2.16.840.1.062349.3.579.2 1978 Unknown [id number] 2.16.840.1.500512.3.579.2. 72 1978 Unknown [id number] 2.16.840.1.029629.3.579.2. 72 1978 Unknown [id number] 2.16.840.1.323021.3.579.2. 72 1978 Unknown [id number] 2.16.840.1.996610.3.579.2 1978 Unknown [id number] 2.16.840.1.682314.3.579.2. 727 1978 Unknown [id number] 2.16.840.1.004218.3.579.2. 1259 1978 Unknown [id number] 2.16.840.1.086361.3.579.2. 1259 1978 Unknown [id number] 2.16.840.1.449584.3.579.2. 1259 1978 Unknown [id number] 2.16.840.1.414208.3.579.2. 1259 1978 Unknown [id number] 2.16.840.1.048285.3.579.2. 1259 1961 Medicaid [id number] 1961 Private Health Insurance [id number] Unknown [id number] 2.16.840.1.988670.3.579.2. 531 Social History Date Type Detail Facility Start: 06-03-2024 End: 01-27-2025 Tobacco smoking status Ex-smoker (finding) [facility] Tobacco smoking status Never [facility] Start: 01-23-2024 End: 10-30-2024 Sex Assigned At Female [facility] Start: 09-10-2005 End: 09-10-2016 History of tobacco use Current smoker [facility] Start: 09-10-2005 End: 09-10-2016 History of tobacco use Cigarette Smoker [facility] Start: 12-18-2023 End: 10-30-2024 Tobacco use and exposure Smokeless tobacco non-user [facility] Start: 06-12-2024 End: 10-30-2024 Alcoholic beverage intake Ex-drinker (finding) [facility] Start: 01-23-2024 End: 10-30-2024 History of Social function [facility] Start: 1980 Sex assigned at Not on file [facility] Sexual Orientation [facility] Start: 03-26-2019 Sex Female (finding) [facility] Medical Equipment Procedure Code Equipment Code Equipment Origin al Text Equipment Identifier Dates [id number] Start: 06-10-2024 End: 06-10-2025 TEST BLOOD SUGAR SIX TIMES DAILY [id number] Start: 10-29-2024 Functional Status Date Assessment Result Facility 01-27-2025 Functional Status N/A [facility] [place] 09-23-2024 Functional Status N/A [facility] [place] 06-03-2024 Functional Status N/A [facility] [place] Clinical Notes 04-17-2022 to 10-30-2024 Telephone Encounter - Jose Radha - 10/30/2024 11:18 AM ESTTelephone Encounter - Jose Garcia - 10/30/2024 11:18 AM Ev Gonzalez MD - 10/30/2024 9:50 AM EST Note Date & Type Note Facility 10-30-2024 Telephone encounter Note Please resend Dexcom G7 and kit to [facility] please and thank you! Omnipod 5 pods to [facility] as well. Thanks! [facility] 10-30-2024 Miscellaneous Notes Please resend Dexcom G7 and kit to [facility] please and thank you! Omnipod 5 pods to [facility] as well. Thanks! documented in this encounter [facility] 10-30-2024 History of Present illness Narrative Scar [...] readings . wants to check her for [place]'s disease since her mother had it. Interim [...] 40 mg, Every 24 hours Continuous Glucose Superannuation Funds Manager (Dexcom G7 Superannuation Funds Manager) device 1 kit, Does not apply, Continuous [...] (ZOCOR) 20 mg, Nightly Vitamin D, Ergocalciferol, 23257 units capsule 1 tablet, Weekly ALLERGIES: Allergies Allergen Reactions Codeine Hydrocodone Throat swelling, vomiting Morphine GI intolerance vomiting Oxcarbazepine Other Reaction(s): tightness in chest Penicillin G Hives Penicillins Valproic Acid Other Reaction(s): Trouble Breathing Lamotrigine Rash Past Medical History: Diagnosis Date Anxiety Congestive heart failure (CHF) (CMS/HCC) Essential (primary) hypertension (CMS/HCC) Hypothyroid (CMS/HCC) 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 (CMS/HCC) Migraine (CMS/HCC) [...] Type 1 diabetes mellitus with hyperglycemia (HCC) ([facility]) - POCT glycosylated hemoglobin (Hb A1C) [...] Encounter for dietary consultation Insulin long-term use ([facility]) Microalbuminuria Insulin pump in place Encounter for fitting or adjustment of insulin pump Primary hypertension ([facility]/HCC) 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) 08/19/2012 Dysthymia (CMS/[facility]) 08/19/2012 Epilepsy (CMS/[facility]) 08/19/2012 Insomnia 08/19/2012 Laryngopharyngeal reflux 12/18/2023 Mass of head 12/18/2023 Type 2 diabetes mellitus without complication ([facility]) 08/19/2012 Sleep apnea 12/18/2023 Sinusitis, chronic [...] Hypertension (CMS/HCC) 01/17/2024 Irritable bowel syndrome 01/17/2024 terminal 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 (CMS/[facility]) 01/17/2024 Migraine headache (CMS/[facility]) 01/17/2024 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 1 diabetes mellitus ([facility]) 01/17/2024 Nausea 01/17/2024 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 ([facility] 01/17/2024 Obesity with body mass index 30 or greater 01/17/2024 Pain in joint of right shoulder 08/02/2020 Pain in right arm 08/02/2020 Pain in right knee 08/02/2020 Type 1 diabetes mellitus ([facility]) 01/17/2024 Seizure disorder ([facility] 01/17/2024 Resolved Ambulatory Problems Diagnosis Date Noted Chronic laryngitis 12/18/2023 Past Medical History: Diagnosis Date Congestive heart failure (CHF) ([facility] Essential (primary) hypertension ([facility] Hypothyroid ([facility] [facility] (current) use of insulin ([facility]) Migraine ([facility]) Presence of insulin pump (external) (internal) Proteinuria, unspecified Seizures ([facility]) Torn meniscus 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 ([facility]) Vitamin D deficiency, unspecified Past Surgical History: [...] day at the same time Continuous Glucose Superannuation Funds Manager (Dexcom G7 Superannuation Funds Manager) device 1 kit continuously 1 each 1 [...] by mouth at bedtime Vitamin D, Ergocalciferol, 25461 units capsule Take 1 tablet by mouth [...] No tx needed documented in this encounter [facility] 09-23-2024 Note General Surgery Offi ce/Clinic Note [...] (corpus and cervix) (more content not included)... [facility] Comment on above: Result Comment: Elec tronically [...] readings . wants to check her for Norwood's disease since her mother had it. Interim [...] (ZOCOR) 20 mg, Nightly Vitamin D, Ergocalciferol, 73771 units capsule 1 tablet, Weekly ALLERGIES: Allergies Allergen Reactions Codeine Hydrocodone Throat swelling, vomiting Morphine GI intolerance vomiting Oxcarbazepine Other Reaction(s): tightness in chest Penicillin G Hives Penicillins Valproic Acid Other Reaction(s): Trouble Breathing Lamotrigine Rash Past Medical History: Diagnosis Date Anxiety Congestive heart failure (CHF) (CMS/HCC) Essential (primary) hypertension (CMS/HCC) Hypothyroid (CMS/HCC) [facility] (current) use of insulin (CMS/HCC) Migraine (CMS/HCC) Presence of insulin pump (external) (internal) Proteinuria, unspecified Seizures (CMS/HCC) Sleep apnea Torn meniscus 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 ([facility]) Vitamin D deficiency, unspecified Past Surgical [...] Type 1 diabetes mellitus with hyperglycemia (HCC) ([facility]) - POCT glucose manually resulted - [...] months (around 10/24/2024). documented in this encounter [facility] 06-03-2024 Note General Surgery Offi ce/Clinic Note [...] chloride 10 mEq (more content not included)... [facility] Comment on above: Result Comment: Elec tronically [...] 85% of maximum predicted heart rate. [facility] Evaluation + Plan note Future Appointments Appointment Date:06/18/2024 03:00:00 PM Scheduled Provider:Kobe ROBERTSON MD Location:[facility] Appointment Type:[facility] Surgery [address] [place] [address] Evaluation + Plan note Future Appointments Appointment Date:06/24/2024 02:00:00 PM Scheduled Provider:Kobe ROBERTSON MD Location:[facility] Appointment Type: Established [address] [place] [address] Evaluation + Plan note Future Appointments Appointment Date:03/24/2025 01:40:00 PM Scheduled Provider:Kobe ROBERTSON MD Location:[facility] Appointment Type: Procedure [address] [place] [address] [place] Evaluation note Diagnosis Type 1 diabetes mellitus with hyperglycemia (HCC) ([facility]/HCC)- Primary Vitamin D deficiency Encounter for dietary consultation Insulin long-term use ([facility]/HCC) Encounter for long-term (current) use [...] Type 1 diabetes mellitus with hyperglycemia (HCC) ([facility]/HCC)- Primary Vitamin D deficiency Encounter for dietary consultation Insulin long-term use ([facility]/HCC) Encounter for long-term (current) use [...] this section [facility] Discharge instructions No data available for this section [facility] Progress note No data available for this section [facility] Summary Purpose Family History No Family History [...] section and content) DATE CREATED AUTHOR 10/02/2021 [facility] DATE CREATED AUTHOR AUTHOR'S ORGANIZ ATION 01/23/2023 [facility] DATE CREATED AUTHOR AUTHOR'S ORGANIZ ATION 06/27/2024 [facility] DATE CREATED AUTHOR AUTHOR'S ORGANIZ ATION 09/03/2024 [facility] DATE CREATED AUTHOR AUTHOR'S ORGANIZ ATION 01/28/2025 [facility] DATE CREATED AUTHOR AUTHOR'S ORGANIZ ATION 02/05/2025 [facility] EPIC DATE CREATED AUTHOR AUTHOR'S ORGANIZ ATION 02/06/2025 [facility] Patient Care team informatio n (unrecognized section and content) Rn Pool Relationship Specialty Start Date End Date Lorenzo Cortez MD [address] [facility] [place] [address] PCP - General Family Medicine 12/18/23 Rn Pool Relationship Specialty Start Date End Date Lorenzo Cortez MD [address] [facility] [place] [address] PCP - General Family Medicine 12/18/23 Rn Pool Relationship Specialty Start Date End Date Lorenzo Cortez MD [address] [facility] [place] [address] PCP - General Family Medicine 12/18/23 Rn Pool Relationship Specialty Start Date End Date Lorenzo Cortez MD [address] [facility] [place] [address] PCP - General Family Medicine 12/18/23 Rn Pool Relationship Specialty Start Date End Date Lorenzo Cortez MD [address] [place] [address] PCP - General Family Medicine 12/18/23 Rn Pool Relationship Specialty Start Date End Date Lorenzo Cortez MD [address] [facility] [place] [address] PCP - General Family Medicine 12/18/23 Reason [...] BE BASED ON THE PRIMARY CLINICAL RECORDS. [email or web address] [facility]. provides no warranty or guarantee of the accuracy or completeness of information in this document.
[2025-02-27 10:24] LABS: Total Protein Urine Random <6.0 mg/dL (<=11.9)
[2025-02-27 10:31] LABS: Alanine Aminotransferase 45 U/L (14-59); Albumin Globulin Ratio 1.1; Albumin Level 3.9 g/dL (3.4-5.0); Alkaline Phosphatase 137 U/L (46-116); Aspartate Amino Transferase 24 U/L (15-37); Bilirubin Total 0.5 mg/dL (0.2-1.0); Calcium 9.5 mg/dL (8.5-10.1); Carbon Dioxide 28.7 mmol/L (21.0-32.0); Chloride 96 mmol/L (98-107); Estimated GFR (African America >60 (>=60 mL/min/1.73m^2); Estimated GFR (Non-African Ame 55 (>=60 mL/min/1.73m^2); Globulin 3.4 g/dL; Glucose 354 mg/dL (74-106); Potassium 4.7 mmol/L (3.5-5.1); Sodium 134 mmol/L (136-145); Total Protein 7.3 g/dL (6.4-8.2)
== END 2025-02-27 09:58 | disposition home or self-care (01) ==
PROVIDERS: PCP Family Medicine; Visit Provider Family Medicine
DX: Z00.00 Encounter for general adult medical examination without abnormal findings (principal)
CPT/HCPCS: 36415; 80053; 83036; 84156

== ENCOUNTER 2025-02-28 09:03 | Outpatient (OUT) | payer MEDICARE, MEDICAID, SELFPAY ==
--- OUTSIDE RECORDS SUMMARY | 2025-02-25 06:45 | XMS_ITS ---
Author Organization [facility] in [place] Address [address] [place] [address] Care Team Providers Care Continuous Improvement Lead Name Role Phone Joe Cortez Primary Care [...] hives Drug Allergy Active REASON FOR VISIT subsequent Medicare Wellness Medications Medication SIG (Take, Route, Frequency, Duration) Notes Start Date End Date Status HumuLIN R U-500 (CONCENTRATED) 500 UNIT/ML VIA INSULIN PUMP Subcutaneous for 22 days Active Gvoke HypoPen Active Furosemide 80 MG TAKE 1 TABLET EVERY MORNING for 90 Active Ferrous Sulfate 325 (65 Fe) MG 1 tablet Orally twice daily for 30 days 04/16/2024 Not-Taking Famotidine 20 MG TAKE 1 TABLET TWICE DAILY for 90 Active Citalopram Hydrobromide 40 MG 1 tablet Orally Once a day for 90 days Active buPROPion HCl ER (XL) 300 MG take 1 tablet by mouth every morning for 30 Active Aspirin 81 81 MG 1 tablet Orally Once a day Active amLODIPine Besylate 10 MG 1 tablet Orall y Once a day for 90 days 04/18/2024 Not-Taking Albuterol Sulfate HFA 108 (90 Base) MCG/ACT INHALE 2 PUFFS EVERY 4 TO 6 HOURS NEEDED for 50 Active Advair HFA 230-21 MCG/ACT 2 puffs Inhala tion Twice a day 08/20/2024 Active Vitamin D (Ergocalciferol) 1.25 MG (52173 UT) take 1 capsule by mouth every week for 84 Active Simvastatin 20 MG TAKE 1 TABLET EVERY DAY for 90 Active risperiDONE 4 MG TAKE 1 TABLET AT BEDTIME for 90 days Active Potassium Chloride ER 10 MEQ TAKE 1 CAPSULE TWICE DAILY for 90 Active metFORMIN HCl 1000 MG 1 tablet with a me al Orally bid Active Losartan Potassium 100 MG TAKE 1 TABLET EVERY DAY Orally Once a day for 90 days Active LORazepam 1 MG 1 Oral BID for 30 days F41.9 02/26/2023 Active Plavix 75 MG 1 tablet Orally Once a day for 30 days 02/09/2025 Active Omeprazole 40 MG TAKE 1 CAPSULE EVERY DAY for 90 Active Levothyroxine Sodium 100 MCG TAKE 1 TABLET EVERY DAY for 90 days Active levETIRAcetam 500 MG take 1 tablet by mo uth every 12 hours Orally every 12 hrs for 30 days Active Social History Tobacco Use: Social History Observation Description Date Details (start date - stop date) Former Smoker 09/10/2005 - 09/10/2016 Tobacco Use/Smoking Question Answer Notes Patient is a former smoker When did you start smoking? 09/10/2005 When did you stop smoking? 09/10/2016 How long has it been since you last smoked? 5-10 years AUDIT-C (Standard) Question Answer Notes Did you have a drink containing alcohol in the p ast year? No Points 0 Interpretation Negative Vital Signs Weight 245 lbs 02/25/2025 Height 66 in 02/25/2025 Blood pressure systolic 128 mm Hg 02/26/20 25 Blood pressure diastolic 54 mm Hg 025 BMI 39.54 kg/m2 02/25/2025 Encounters Encounter Location Date Provider Diagnosis [facility] ([place], [place]) [address] [place] [address] 02/25/2025 Joe Cortez Encounter for Medica annual wellness exam Z00.00 Assessments Encounter Date Diagnosis (ICD Code) Assessment Notes Treatment Notes Treatment Clinical Notes Section Notes 02/25/2025 Encounter for Medicare annual wellness exam (ICD-10 - Z00.00) patient presents to the office for a medicare wellness appointment, a total of 20 minutes was spent with the patient, a slums memory test was completed and the patient scored a 26/30, a vision test was completed without difficulty, also a anxiety, depression and safety screening was completed with no concerns Plan Of Treatment Next Appt Details Provider Name:Joe Pace Diego, 09:45:00 AM, [address] [place], [address], Progress Notes * Scar JEFFREY MDOB:1980 (44 yo F)Acc No.[id number]:02/25/2025 UNLOCKED PROGRESS NOTE Progress Note Patient: Scar FLOWERS Provider: Brice Cortez ([facility])MD :1980 A ge:44 Y S ex:Female Date:02/25/2025 Address:[address] [place], [place] [id number] Check In:10:43 AM ESTCheck O ut:11:08 AM EST Subjective: * Chief Complaints: * 1 . subsequent Medicare Wellness. * HPI: Katelynn putnam Annual Wellness Visit: Type of Visit: I [facility] Annual Wellness Visit (IAWV). Visual Acuity: N /A. Other Providers of Care: C are Team reviewed with patient: Margot waller, and updates made in [place] of Care Physical Activity: D o you exercise regularly? Y es T ype of exercise: _ __ F requency: _ __ Nutrition/Diet: O n a typical day, how many servings of fruits and vegetables do you consume? 0 I n a typical week, how many servings of fried or high fat (such as cheese, fatty meat) do you consume? 0 I n a typical week, how many servings of high fiber or whole grain foods do you consume? 0 Seat Belt: D o you always use your seat belt in your car??Yes A re you having difficulties driving your car??No C an you get to places out of walking distance without help? Y es Dental: H ow would you describe the condition of your mouth and teeth, including any false teeth or dentures? E xcellent Medication List Follow-Up: D uring the past four weeks, how much bodily pain do you have? N o pain D o you have a current opioid prescription??No Self Assessment of Health: H ow would you rate your overall health the past four weeks? E xcellent H ow confident are you that you can control and manage most of your health problems? V kenyatta confident H ow have things been going for you during the past four weeks? V kenyatta well; could hardly be better D uring the past four weeks, was someone available to help you if you needed and wanted help? Y es, as much as I wanted (Example: if you felt nervous, lonely, or blue; got sick and had to stay in bed; needed someone to talk to; help with daily chores; or needed help just taking care of yourself) D o you have any sexual problems? N o D o you have any troubles eating well? N o D o you have any problems with tiredness or fatigue? N o H ave you noticed any hearing difficulties??No Sun Exposure: D o you protect yourself from over exposure to the sun when outdoors? Y es Mental Wellness: D uring the past four weeks, how much have you been bothered by emotional problems such as feeling anxious, depressed, irritable, sad, or downhearted and blue? N ot at all D uring the past four weeks, has your physical and emotional health limited your social activities with family, friends, neighbors, or groups??Not at all Functional Ability and Safety Screening: D o you need assistance with any of the following? Select all that apply. N one D oes your home have rugs in the hallway, lack grab bars in the bathroom, lack handrails on the stairs or have poor lighting? N o D o you feel unsteady and/or dizzy when standing or walking? N o D o you have smoke detectors in your home and routinely change the batteries? Y es D o you have a fire extinguisher and know how to use it properly? Y es D o you have any problems with your living situation, food, transportation, utilities, or safety? N o Cognitive Screening: H ave you experienced any memory issues or problems with thinking? N o H ave your family members, friends, caretakers, or others raised any concerns? N o D o you get confused or easily distracted more than you used to? N o H as your ability to concentrate seem to have declined recently? N o End of Life Planning: D o you have a living will? Y es D o you have a Durable Power of Building Contractor? Y es W ould you like to discuss this topic today??Yes SDOH A gree to complete Social Determinants of Health questionnaire Y es W ithin the past 12 months, did you worry that your food would run out before you got money to buy more? N o W ithin the past 12 months, did the food you bought just not last and you didn't have money to buy more? N o W ithin the past 12 months, have you ever stayed: outside, in a car, in a a tent, in an overnight alf, or temporarily in someone else's home??No A re you worried about losing your housing??No W ithin the past 12 months, have you been able to get utilities (heat, electricity) when it was really needed? N o W ithin the past 12 months, has a lack of transportation kept you from medical appointments or from doing things needed for daily living? N o D o you feel physically or emotionally unsafe where you currently live? N o W ould you like help with any of these needs that you have identified? N o * Medical History: A nxiety and depression, Diabetic neuropathy associated with type 1 diabetes mellitus, Acid reflux, Hypertension, Insomnia, Fatigue, Overweight, Viral gastroenteritis, Migraine, Family history of colon cancer, Essential tremor, COVID-19, Nondisplaced bicondylar fracture of right tibia, initial encounter for closed fracture, Pain in right elbow, Knee pain, right, GERD (gastroesophageal reflux disease), Fluid retention in tissues, Edema, Diastasis recti, Chronic laryngitis, Gastro- esophageal reflux disease without esophagitis, intermediate (current) use of insulin, Mass of head, Degenerative disc disease, cervical, Acute embolism and thrombosis of superficial vein of left upper extremity, Hoarse, Lesion of vocal cord, Localized swelling, mass and lump, head, Acute laryngitis, without mention of obstruction, 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 * Surgical History: T otal Hysterecomy , x2 , Left Rotator Cuff , Right Carpal Tunnel , Gallbladder . * Hospitalization/Major Diagno stic Procedure: s ee avove . * Family History: F ather: , diagnosed with Other malignant neoplasm of unspecified site, Unspecified essential hypertension, Unspecified heart disease. M other: alive. S on(s): alive. 1 son(s) . . dad- Skin Cancer mom-thyroid. * Social History: T obacco Use: T obacco Use/Smoking P atient is a f ormer smoker W hen did you start smoking? 0 09/10/2005 W hen did you stop smoking? 0 09/10/2016 H ow long has it been since you last smoked??5-10 years D rug/Alcohol: A TAD-C (Standard) D id you have a drink containing alcohol in the past year? N o P oints 0 I nterpretation N egative * Medications: T aking Advair HFA(Fluticasone-Salmeterol) 230-21 MCG/ACT Aerosol 2 puffs Inhalation Twice a day , Taking Albuterol Sulfate HFA 108 (90 Base) MCG/ACT Aerosol Solution INHALE 2 PUFFS EVERY 4 TO 6 HOURS NEEDED , Taking Aspirin 81(Aspirin) 81 MG Tablet Delayed Release 1 tablet Orally Once a day , Taking buPROPion HCl ER (XL) 300 MG Tablet Extended Release 24 Hour take 1 tablet by mouth every morning , Taking Citalopram Hydrobromide 40 MG Tablet 1 tablet Orally Once a day , Taking Famotidine 20 MG Tablet TAKE 1 TABLET TWICE DAILY , Taking Furosemide 80 MG Tablet TAKE 1 TABLET EVERY MORNING , Taking Gvoke HypoPen , Taking HumuLIN R U-500 (CONCENTRATED)(Insulin Regular Human (Conc)) 500 UNIT/ML Solution VIA INSULIN PUMP Subcutaneous , Taking levETIRAcetam 500 MG Tablet take 1 tablet by mouth every 12 hours Orally every 12 hrs , Taking Levothyroxine Sodium 100 MCG Tablet TAKE 1 TABLET EVERY DAY , Taking LORazepam 1 MG Tablet 1 Oral BID , Notes to Pharmacist: F41.9, Taking Losartan Potassium 100 MG Tablet TAKE 1 TABLET EVERY DAY Orally Once a day , Taking metFORMIN HCl 1000 MG Tablet 1 tablet with a meal Orally bid , Taking Omeprazole 40 MG Capsule Delayed Release TAKE 1 CAPSULE EVERY DAY , Taking Plavix(Clopidogrel Bisulfate) 75 MG Tablet 1 tablet Orally Once a day , Taking Potassium Chloride ER 10 MEQ Capsule Extended Release TAKE 1 CAPSULE TWICE DAILY , Taking risperiDONE 4 MG Tablet TAKE 1 TABLET AT BEDTIME , Taking Simvastatin 20 MG Tablet TAKE 1 TABLET EVERY DAY , Taking Vitamin D (Ergocalciferol) 1.25 MG (48827 UT) Capsule take 1 capsule by mouth every week , Not-Taking/PRN amLODIPine Besylate 10 MG Tablet 1 tablet Orally Once a day , Not-Taking/PRN Ferrous Sulfate 325 (65 Fe) MG Tablet 1 tablet Orally twice daily , Medication List reviewed and reconciled with the patient * Allergies: P enicillin: hives, opioids: throat swelling/vomiting, Depakote: chest tightness/throat swelling, Trileptal: chest tightness/throat swelling, LaMICtal: rash, Morphine and Related: vomiting. Objective: * Vitals: W t:245lbs, Ht: 66 in, BP:128/54mm Hg, BMI:39.54Index, Ht-cm: 167.64 cm, Wt-k.13 kg. Assessment: * Assessment: 1. E ncounter for Medicare annual wellness exam - Z00.00 (Primary) patient presents to the [facility] for a medicare wellness appointment, a total of 20 minutes was spent with the patient, a slums memory test was completed and the patient scored a 26/30, a vision test was completed without difficulty, also a anxiety, depression and safety screening was completed with no concerns Plan: * Treatment: * Procedure Codes: G 0438 ANNUAL WELL VISIT;INITIAL * Preventive Medicine: Screenings/Counseling: B RI ACTION PLAN Above Normal BMI Follow-up D ietary management education, guidance, and counseling F ALL RISK SCREENING Fall Risk Assessment: N o falls in the past year Are you afraid of falling? N o * * Electronic signature of Joe Cortez MD, [id number] on 02/28/2025 at 09:05 AM EDT Sign off status: Pending Visit Status: C HK (Check Out) * Provider: Brice Cortez ([facility])MD Date: 02/25/2025 [facility]/Marissa/Yuriitting on: 02/28/2025 09:05 AM EDT History and Physical Notes * HPI (History of Present Illness) Category Sub-Category Detail Notes Category Not es Medicare Annual Wellness Visit Type of Visit: Initial Annual Wellness Visi t (IAWV) Cognitive Screening: Have you experience d any memory issues or problems with thinking?: No Have your family members, fr iends, caretakers, or others raised any concerns?: No Do you get confused or easily distracted more than you used to?: No Has your ability to concentrate seem to have declined recently?: No Self Assessment of Health: How would you rate your overall health the past four weeks?: Excellent How confident are you that y ou can control and manage most of your health problems?: Very confident How have things been going f or you during the past four weeks?: Very well; could hardly be better During the past four weeks, was someone available to help you if you needed and wanted help?: Yes, as much as I wanted (Example: if you felt nervous, lonely, o r blue; got sick and had to stay in bed; needed someone to talk to; help with daily chores; or needed help just taking care of yourself) Do you have any sexual problems?: No Do you have any troubles eating well?: N o Do you have any problems wit h tiredness or fatigue?: No Have you noticed any hearing difficulties?: No Physical Activity: Do you exercise regularly?: Y es Type of exercise:: ___ Frequency:: ___ Functional Ability and Safety Screening: Do you need assistance with any of the following? Select all that apply.: None Does your home have rugs in the hallway, lack grab bars in the bathroom, lack handrails on the stairs or have poor lighting?: No Do you feel unsteady and/or dizzy when s tanding or walking?: No Do you have smoke detectors in your home and routinely change the batteries?: Yes Do you have a fire extinguisher and know how to use it properly?: Yes Do you have any problems wit h your living situation, food, transportation, utilities, or safety?: No Visual Acuity: N/A Nutrition/Diet: On a typical day, ho w many servings of fruits and vegetables do you consume?: 0 In a typical week, how many servings of fried or high fat (such as cheese, fatty meat) do you consume?: 0 In a typical week, how many servings of high fiber or whole grain foods do you consume?: 0 Seat Belt: Do you always use your seat belt in your car?: Yes Are you having difficulties driving your car?: No Can you get to places out of walking dis tance without help?: Yes Dental: How would you descri be the condition of your mouth and teeth, including any false teeth or dentures?: Excellent Medication List Follow-Up: During the four weeks, how much bodily pain do you have?: No pain Do you have a current opioid prescriptio n?: No Mental Wellness: During the past four weeks, how much have you been bothered by emotional problems such as feeling anxious, depressed, irritable, sad, or downhearted and blue?: Not at all During the past four weeks, has your physical and emotional health limited your social activities with family, friends, neighbors, or groups?: Not at all Sun Exposure: Do you protect yours elf from over exposure to the sun when outdoors?: Yes End of Life Planning: Do you have a living will? : Yes Do you have a Durable Power of Building Contractor? : Yes Would you like to discuss this topic tod ay?: Yes Other Providers of Care: Care Team mary ellen hines with patient:: Yes, and updates made in [place] of [facility] Agree to complete So [facility] Determinants of Health questionnaire: Yes Within the past 12 months, did you worry that your food would run out before you got money to buy more?: No Within the past 12 months, did the food you bought just not last and you didn't have money to buy more?: No Within the past 12 months, have you ever stayed: outside, in a car, in a a tent, in an overnight alf, or temporarily in someone else's home?: No Are you worried about losing your housing?: No Within the past 12 months, have you been able to get utilities (heat, electricity) when it was really needed?: No Within the past 12 months, has a lack of transportation kept you from medical appointments or from doing things needed for daily living?: No Do you feel physically or emotionally unsafe where you currently live?: No Would you like help with any of these needs that you have identified?: No
--- OUTSIDE RECORDS SUMMARY | 2025-02-25 07:09 | XMS_ITS ---
Author Organization [facility] in [place] Address [address] [place] [address] Care Team Providers Care Stamping Machine Operator Name Role Phone Diego Joe Primary Care Provider REASON FOR VISIT medicare wellness Problems Problem Type SNOMED Code ICD Code Onset Dates Problem Status W/U Status Risk Notes Problem Senile osteoporosis (M81.0) Active confirmed Encounters Encounter Location Date Provider Diagnosis [facility] [address] [place] [address] 02/25/2025 Joe Cortez Fatigue R53.83 ; Screening for colon cancer Z12.11 ; Senile osteoporosis M81.0 and Screening for breast cancer Z12.31 Assessments Encounter Date Diagnosis (ICD Code) Assessment Notes Treatment Notes Treatment Clinical Notes Section Notes 02/25/2025 Fatigue (ICD-10 - R53.83) 02/25/2025 Screening for colon cancer (ICD-10 - Z12.11) 02/25/2025 Senile osteoporosis (ICD-10 - M81.0) 02/25/2025 Screening for breast cancer (ICD-10 - Z12.31) Plan Of Treatment Pending Test Test Name Order Date FECAL OCCULT BLOOD 02/25/2025 XR DEXA BONE DENSITY 02/25/2025 THYROID PANEL (T4/TSH/FREE T3) BI MAMMOGRAM SCREENING TOMOSYNTHESIS JOSELITO ATERAL 02/25/2025 Vitamin D 02/25/2025 Next Appt Details Provider Name:Joe Cortez, 09:45:00 AM, [address] [place], [address], Progress Notes * Scar JEFFREY MDOB:1980 (44 yo F)Acc No.[id number]:02/25/2025 Patient: Scar FLOWERS :1980 A ge:44 Y S ex:Female Address:[address] [place] [address], [address] Subjective: * Chief Complaints: * M edicare wellness * Medical History: * Surgical History: * Hospitalization/Major Diagno stic Procedure: * Medications: Objective: * Vitals: * Physical Examination: Assessment: * Assessment: 1. F atigue - R53.83 (Primary) 2 . S creening for colon cancer - Z12.11? 3. S enile osteoporosis - M81.0 4 . S creening for breast cancer - Z12.31 Plan: * Treatment: 2. S creening for colon cancer L AB: FECAL OCCULT BLOOD 3. S enile osteoporosis I maging: XR DEXA BONE DENSITY 4. S creening for breast cancer I maging: BI MAMMOGRAM SCREENING TOMOSYNTHESIS BILATERAL * Procedure Codes: * true * Date: Generated for Svitlana sanches/Marissa/Yuriitting on: 0 02/28/2025 09:04 AM EDT
--- OUTSIDE RECORDS SUMMARY | 2025-02-25 07:15 | XMS_ITS ---
Author Organization [facility] in [place] Address [address] [place] [address] Care Team Providers Care Catalytic Converter Operator Name Role Phone Joe Cortez Primary Care [...] Value Reference Range Notes PROF 14(COMP METB) (Not yet reviewed by provider) Interpretation: Performing Lab: Notes/Report: The [facility] [place] , Sodium 134 136-145 mmol/L Potassium 4.7 [...] Performing Lab: see note ML - [facility] REASON FOR VISIT yearly check up Medications Medication SIG (Take, Route, Frequency, Duration) Notes Start Date End Date Status Furosemide 80 MG TAKE 1 TABLET EVERY MORNING for 90 Active levoFLOXacin 500 MG 1 tablet Orally Once a day for 10 day(s) 02/09/2025 Active levETIRAcetam 500 MG take 1 tablet by al ut every 12 hours Orally every 12 [...] 04/18/2024 Not-Taking Vitamin D (Ergocalciferol) 1.25 MG (66284 UT) take 1 capsule by mouth every [...] 02/25/2025 Encounters Encounter Location Date Provider Diagnosis [facility] [address] [place] [address] 02/25/2025 Joe Diego Well adult Z00.0 0 Assessments Encounter Date [...] METB) 02/25/2025 Next Appt Details Provider Name:Joe Pace Diego, 09:45:00 AM, [address] [place], [address], Progress Notes * Scar JEFFREY MDOB:1980 (44 yo F)Acc No.[id number]:02/25/2025 UNLOCKED PROGRESS NOTE Progress Note Patient: Clary KENDALScar WOMACK Katelynn Provider: Brice Cortez ([facility])MD :1980 A ge:44 Y S ex:Female Date:02/25/2025 Address:[facility] 09[address] Check In:11:03 AM ESTCheck O ut:11:31 [...] laryngitis, Gastro- esophageal reflux disease without esophagitis, 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 0 09/10/2005 W jazlyn did you stop smoking? 0 09/10/2016 H ow long has it been since you last smoked??5-10 years * Medications: T addison Advair HFA(Fluticasone-Salmeterol) 230-21 MCG/ACT Aerosol 2 puffs [...] , Taking Vitamin D (Ergocalciferol) 1.25 MG (72199 UT) Capsule take 1 capsule by mouth [...] & Time - 02/27/2025 10:11 AM) * Preventive Medicine: Screenings/Counseling: B [place] ACTION PLAN Above Normal BMI Follow-up D ietary management education, guidance, and counseling * * Electronic signature of Joe Cortez MD, [id number] on 02/28/2025 at 09:04 AM EDT Sign off status: Pending Visit Status: C HK (Check Out) * Provider: Briec Cortez ([facility])MD Date: 0 02/25/2025 Generated for Printi ng/Faxing/eTransmitting on: 0 02/28/2025 09:04 AM EDT History and Physical Notes * [...]
--- OUTSIDE RECORDS SUMMARY | 2025-02-28 09:04 | XMS_ITS | Referral Summary ---
Author Organization [facility] Address [address] [place] [address] Care Team Providers Care Renewal Specialist Name Role Phone Unavailable Primary Care Provider [...] Years Used Date Smoking Tobacco: Never Assessed [facility] Safety & Environment Answer Date Rec orded [...] of Treatment Not on file Insurance MEDICAID [place] [employer] MEDICARE ADVANTAGE
--- OUTSIDE RECORDS SUMMARY | 2025-02-28 09:04 | XMS_ITS | Encounter Summary ---
Author Organization [facility] Address [address] [place] [address] Care Team Providers Care Twisting Press Operator Name Role Phone George Cortez MD Primary Care Provider [phone] Encounter Details Date Type Department Care Team (Late st Contact Info) Description 01/17/2024 Clinisync Result Encounter [facility] External Department Unsolicited Shara Healy MD [address] [facility] [address] [place] [address] Social History Tobacco Use Types [...] [facility] [address] [place] [address] Zay Montiel MD [address] [place] [address] documented as of this encounter Procedures Procedure Name Priority Date/Time Associated Diagnosis Comments CT SOFT TISSUE NECK W IV CONTRAST 01/17/2024 10:05 AM EDT documented in this encounter Results * CT soft tissue neck w IV contrast (01/17/2024 10:05 AM EDT) Anatomical Region Laterality Modality Head, Neck Computed Tomogra phy 01/17/2024 10:0 5 AM EDT Narrative 01/17/2024 10:07 AM EDT [address] [address] [address] Scan Report Signed Patient: SCAR JEFFREY MR#: [id number] : 1980 Acct:[id number] Age/Sex: 43 / F ADM Date: 01/17/24 Loc: LAB Attending Dr: Shara Healy M.D. Ordering Physician: Shara Healy M.D. Date of Service: 01/17/24 Procedure(s): CT soft tissue neck w con Accession Number(s): [id number] cc: George Cortez M.D. 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 Ordering Physician: Shara Healy M.D. Date of Service: 01/17/24 Procedure(s): CT soft tissue neck w con Accession Number(s): [id number] cc: George Cortez M.D. The [place] [address] Patient Name: SCAR JEFFREY MRN: [id number] date: 1980 Sex: F Assigned Patient Location: LAB Current Patient Location: LAB Accession/Order Number: [id number] Exam Date: 01/17/2024 09:25 Report Date: 01/17/2024 [...] M.D. Signed By:01/17/24 1007 DD/ 1005 TD/TT: [employer]ology Lecturer: Shara Healy MD IMG CT PROCEDURES Final Resul t documented in this encounter Visit Diagnoses Not on filedocumented in this encounter Care Teams Twisting Press Operator Relationship Specialty Start Date End Date George Cortez MD PCP - General Family Medicine 12/18/23 documented as of this encounter
--- OUTSIDE RECORDS SUMMARY | 2025-02-28 09:04 | XMS_ITS | Clinical Summary ---
Author Organization [facility] Address [address] [place] [address] Care Team Providers Care Hub Associate Name Role Phone George Cortez MD Primary Care Provider [phone] Allergies Active Allergy Reactions Criticality Noted Date [...] mouth at bedtime Active Vitamin D, Ergocalciferol, 76827 units capsule Take 1 tablet by mouth [...] 1 10/30/19 25 025 Active Continuous Glucose Truck Sales Manager (Dexcom G7 Truck Sales Manager) deviceIndications :Type 1 diabetes mellitus with hyperglycemia (HCC) 1 kit continuously 1 each 1 10/31/19 25 Active Continuous Glucose Sensor (Dexcom G7 Sensor) miscIndications:T ype 1 diabetes mellitus with hyperglycemia (HCC) 1 kit Every 10 (ten) days 9 each 1 10/31/19 25 Active Insulin Disposable Pump (Omnipod 5 [id number] Intro Gen 5) kitIndications:Ty pe 1 diabetes [...] 25 Active Insulin Disposable Pump (Omnipod 5 [id number] Pods Gen 5) miscIndications:T ype 1 diabetes [...] ued(Reord er) Insulin Disposable Pump (Omnipod 5 [id number] Pods Gen 5) miscIndications:T ype 1 diabetes [...] colon Hypertension 01/17/2024 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 01/17/2024 Migraine [...] Description 01/30/2025 10:20 AM EDT Office Visit [facility] [address] [place] [address] Zay Montiel MD 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); Vitamin D deficiency; Encounter for dietary consultation; Insulin long-term use (HCC); Microalbuminuria; Insulin pump in place; Encounter for fitting or adjustment of insulin pump; Primary hypertension ; Type 1 diabetes mellitus with hyperglycemia (HCC) 01/30/2025 Bamboo flowsheet [facility] [address] [place] [address] Zay Montiel MD 01/15/2025 Telephone [facility] [address] [place] [address] Zay Montiel MD Med Refill 01/12/2025 Refill [facility] [address] [place] [address] Zay Montiel MD Type 1 diabetes mellitus with hyperglycemia (HCC) 01/12/2025 Refill [facility] [address] [place] [address] Zay Montiel MD 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); Type 1 diabetes mellitus with hyperglycemia (HCC) 01/12/2025 Refill [facility] [address] [place] [address] Scarlett ShorteCHEN Type 1 diabetes mellitus with hyperglycemia (HCC) 12/30/2024 Refill [facility] [address] [place] [address] Zay Montiel MD Type 1 diabetes mellitus [...] Visit [facility] [address] [place] [address] Zay Montiel MD [address] [place] [address] Procedures Procedure Name Priority Date/Time Associated Diagnosis [...] Final Result from Last 3 Months Insurance [id number] [phone] [facility] MEDICARE ADVANTAGE MEDICAID [place] Care Teams Hub Associate Relationship Specialty Start Date End Date George Cortez MD PCP - General Family Medicine 12/18/23
--- OUTSIDE RECORDS SUMMARY | 2025-02-28 09:04 | XMS_ITS | Encounter Summary ---
Author Organization [facility] Address [address] [place] [address] Care Team Providers Care Water Pump Installer Name Role Phone George Cortez MD Primary Care Provider [phone] Encounter Details Date Type Department Care Team (Late st Contact Info) Description 01/17/2024 Abstract [facility] [address] [place] [address] Jennifer Zheng MA Social History [...] Visit [facility] [address] [place] [address] Zay Montiel MD [address] [place] [address] documented as of this encounter Visit Diagnoses Not on filedocumented in this encounter Care Teams Water Pump Installer Relationship Specialty Start Date End Date George Cortez MD PCP - General Family Medicine 12/18/23 documented as of this encounter
--- OUTSIDE RECORDS SUMMARY | 2025-02-28 09:05 | XMS_ITS | CCD ---
Author Organization [facility] Care Team Providers Care Nib Inspector Name Role Phone NOÉHEIMCARMENIL Attending Unavailable EBRAHEIM [...] HOY ., DR VENTURA Consulting Unavailable [facility], DR FLORA Davidson Consulting Unavailable HOY ., DR VENTURA Admitting Unavailable HOY ., DR VENTURA Primary Care Unavailable HOY ., DR VENTURA Attending Unavailable HOY ., DR VENTURA Consulting Unavailable [place], DR EDNA Carlson Consulting Unavailable HOY ., [...] Consulting Unavailable Lorenzo Cortez Primary Care Physician [phone] Lorenzo Cortez MD Primary Care Provider [phone] NILL, Kobe R Attending Unavailable NILL, Kobe [...] Attending Unavailable Castillo Choudhary Attending Unavailab le aCstillo Choudhary Admitting Unavailab Lorenzo Benito Primary Care Unavailable Allergies Allergy Classification Reported Allergen(s) Allergy Type Date of Onset Reaction(s) Facility (3 sources) Acetaminophen / HYDROcodone; Translations: [Vicodin] Drug Allergy 3 [facility] Repository (3 sources) Acetaminophen / HYDROcodone; Translations: [Lortab] Drug Allergy 6 [facility] Repository (1 source) Adhesive agent Drug allergy (disorder) 3 [facility] Repository (3 sources) Amino Acids; Translations: [lisinopril] Drug Allergy 6 [facility] Repository (3 sources) lamoTRIgine; Translations: [LaMICtal] Drug Allergy 3 [facility] Repository (3 sources) Morphine; Translations: [morphine] Drug Allergy 3 [facility] Repository (3 sources) OXcarbazepine; Translations: [Trileptal] Drug Allergy 3 [facility] Repository (1 source) Penicillins Drug allergy (disorder) 3 [facility] Repository (3 sources) Valproate; Translations: [Depakote] Drug Allergy 3 [facility] Repository (12 sources) Acetaminophen / HYDROcodone; Translations: [acetaminophen-hy drocodone] Drug Allergy Edema of pharynx (disorder) [facility] (6 sources) lamoTRIgine; Translations: [lamotrigine] Drug Allergy Cutaneous eruption (morphologic abnormality) [facility] (6 sources) Lisinopril; Translations: [lisinopril] Drug Allergy Edematous skin (disorder) [facility] (16 sources) Morphine; Translations: [morphine] Drug Allergy 4 Vomiting (disorder), GI intolerance [facility] (6 sources) OXcarbazepine; Translations: [oxcarbazepine] Drug Allergy Edema of pharynx (disorder) [facility] (8 sources) Penicillin; Translations: [penicillin] Drug Allergy Cutaneous eruption (morphologic abnormality) [facility] (6 sources) Valproate; Translations: [divalproex sodium] Drug Allergy Edema of pharynx (disorder) [facility] (10 sources) Codeine Drug Allergy 4 [facility] (10 sources) HYDROcodone Drug Allergy 4 [facility] Healthcare Work Phone: (10 sources) Lamotrigine Allergy to substance 4 Rash [facility] Healthcare (10 sources) Oxcarbazepine Allergy to substance 4 [facility] Healthcare (10 sources) Penicillin G Drug Allergy 4 Hives [facility] (10 sources) Penicillins Propensity to adverse reactions 4 [facility] (10 sources) Valproate Drug Allergy 4 [facility] Medications Current Medications Medication Drug Class(es) [...] at the same time Active Continuous Glucose Scientific Advisor (Dexcom G7 Scientific Advisor) device (7 sources) Start: 09-01-2024 Continuous Glucose Scientific Advisor (Dexcom G7 Scientific Advisor) device Indications: Type 1 diabetes mellitus with [...] by mouth every week Vitamin D, Ergocalciferol, 98896 units capsule Take 1 tablet by mouth [...] Start: 04-09-2019 take 1 capsule by mo [facility] every week Vitamin D = 1 cap(s), [...] 12-24-2023 12-24-2023 Episodic Other aftercare (1 source) half-way (current) use of insulin; Translations: [ASSISTED CURRENT USE OF INSULIN] Onset: 10-09-2022 Episodic Other aftercare (14 sources) Long-term current use of insulin; 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 General Surgery [address], [address], [place] [id number]- Medications What How Much When Instructions Unchanged [...] (VOMITING) Tr (more content not included)... Normal [facility] Ambulatory Visit Summary Ambulatory Visit Summary [...] disorder BMI (more content not included)... Normal [facility] General Surgery Office/Clini c Noteon 01-27-2025 [...] (Vomiting) penici (more content not included)... Normal [facility] Comment on above: Result Comment: Elec [...] EDT With: AILYN CHENG, Kobe Davidson Where: [facility] General Surgery [address], [address], [place] [id number]- Medications What How Much When Instructions Unchanged [...] lisinopril (Ed (more content not included)... Normal [facility] General Surgery Office/Clini c Noteon 12-23-2024 [...] (Rash) So (more content not included)... Normal [facility] Comment on above: Result Comment: Elec tronically Signed By: AILYN CHENG, Kobe R\alon\Date and Time Signed: 12/23/24 16:09 EDT Glucose (Bld) [Mass/Vol]on 0 10-30-2024 Glucose Blood, POC 241 mg/dL [facility] - Hematology and Cell countson 10-30-2024 HbA1c (Bld) [Mass fraction] 8.1 % [facility] No Panel Informationon 10-30 Interpretation and review of laboratory results Abnormal [facility] Healthcare [facility] Ambulatory Visit Summaryon 0 09-23-2024 Ambulatory Visit [...] (Edematous sk (more content not included)... Normal [facility] Provider Letteron 09-01-2024 Provider Letter Provider Letter September 01, 2024 SCAR JEFFREY [address] [id number] : 1980 Dear Ms. Jeffrey, We have been trying to reach you with no success regarding a referral from Dr Cortez. It is important that you return our call upon receiving this letter. Also, at the time of your call, please provide us with your current information. Thank you for your prompt attention to this matter. Sincerely, [facility] General Surgery [phone] Normal [facility] Surgical Pathology Reporton 06-25-2024 Surgical Pathology Report [facility] [address] [facility] [place] [address]- Surgical Pathology Report Collected Date/Time: 06/18/2024 15:32 [...] and entirely submitted in one cassette. (DC) DC:[facility] Microscopic Description Microscopic examination performed unless gross only specified. Multiple levels are microscopically examined. Normal [facility] Comment on above: Performed By: #### [id number] #### [facility] Laboratory [address] [place] [address] Ambulatory Visit Summaryon 1 Ambulatory Visit Summary [...] for choosing us for your care. Malia [facility] General Surgery Office/Clini c Noteon 06-24-2024 [...] Years., 06/03/20 (more content not included)... Normal [facility] Comment on above: Result Comment: Elec tronically Signed By: AILYN CHENG, Kobe Davidson\.br\Date and Time Signed: 06/24/24 14:17 EDT Glucose (Bld) [Mass/Vol]on 1 Glucose Blood, POC 361 mg/dL [facility] HbA1c (Bld) [Mass fraction]o n 06-23-2024 [facility] - Hematology and Cell countson 06-23-2024 HbA1c (Bld) [Mass fraction] 7.9 % [facility] Ambulatory Visit Summaryon 1 Ambulatory Visit Summary [...] EDT With: AILYN CHENG, Kobe Davidson Where: [address], [address], [place] [address]- Medications What How Much When Instructions Unchanged [...] Diastasis recti (more content not included)... Normal [facility] General Surgery Office/Clini c Noteon 06-18-2024 [...] ER Tab (more content not included)... Normal [facility] Comment on above: Result Comment: Elec [...] PM EDT With: Kobe ROBERTSON MD Where: [facility] Surgery [address], [address], [place] [address]- Medications What How Much When Instructions Unchanged [...] (more content not included)... Normal [facility] CREATININEon 01-22-2023 Creatinine [Mass/Vol] 0.98 mg/dL Normal 0.55-1.02 [facility] Comment on above: Performed By: #### C NILSON #### [facility] [address] [place] [address] Dr. Keeley Hoskins EGFR-AF KUWAITI >60 Normal >=60 [facility] Comment on above: Performed By: #### C NILSON #### [facility] [address] [place] [address] [address] Keeley Hoskins EGFR-NON AF KUWAITI >60 Normal >=60 [facility] Comment on above: Performed By: #### C NILSON #### [facility] [address] [place] [address] NECK [address] W [...] EDNA GOMEZ Date: 2023-01-22 11:08 Normal [facility] MRI CSPINE WO CONon 01-23-20 MRI CSPINE [...] by: EDNA GOMEZ Date: 2023-01-22 11:04 Normal [facility] CT FACIAL BONES WO CONon CT [...] FLORA DERAS Date: 2023-01-04 07:25 Normal [facility] XR CSPINE MIN 4 VIEWSon [...] by: FLORA DERAS Date: 2023-01-04 07:12 Normal [facility] C-PEPTIDE, SERUMon C-Peptide, Serum <0.1 Critically low 1.1-4.4 [facility] Comment on above: Result Comment: C-Pe ptide reference interval is for fasting patients. Performed By: #### C PEPT #### [facility] [address] [place] [address] [address] Keeley Hoskins BNPon 10-06-2022 Natriuretic peptide B (Bld) [Mass/Vol] 20.0 pg/mL Normal <=450.0 [facility] Comment on above: Performed By: #### R ENAL, LIPID #### [facility] [address] [place] [address] [address] Keeley Hoskins LIPID PROFILEon 10-06-2022 CHOL-HDL RATIO NORM SEE BELOW Normal [facility] Comment on above: Result Comment: 3.3 - 4.4 LOW RISK 4.4 - 7.1 AVERAGE RISK 7.1 - 11.0 MODERATE RISK >11.0 HIGH RISK Performed By: #### R ENAL, LIPID #### [facility] [address] [place] [address] Dr. Keeley Hoskins Cholesterol [Mass/Vol] 156 mg/dL Normal <=200 [facility] Comment on above: Performed By: #### R ENAL, LIPID #### [facility] [address] [place] [address] [address] Keeley Hoskins Cholesterol in HDL [Mass/Vol] 32 mg/dL Critically low 40-60 [facility] Comment on above: Performed By: #### R ENAL, LIPID #### [facility] [address] [place] [address] [address] Keeley Hoskins Cholesterol in LDL [Mass/Vol] 71.8 mg/dL Normal [facility] Comment on above: Performed By: #### R ENAL, LIPID #### [facility] [address] [place] [address] [address] Keeley Hoskins Cholesterol.total/C holesterol in HDL [Mass ratio] 4.9 {ratio} Normal [facility] Comment on above: Performed By: #### R ENAL, LIPID #### [facility] [address] [place] [address] [address] Keeley Hoskins HDL NORMAL > or = 60 mg/dl - LO W CARDIOVASCULAR RISK <40 mg/dl - HIGH CARDIOVASCULAR RISK Normal [facility] Comment on above: Performed By: #### R ENAL, LIPID #### [facility] [address] [place] [address] [address] Keeley Hoskins LDL CALC NORMAL SEE BELOW Normal [facility] Comment on above: Result Comment: <100 mg/dl OPTIMAL 100 - 129 mg/dl NEAR OR ABOVE OPTIMAL 130 - 159 mg/dl BORDERLINE HIGH 160 - 189 mg/dl HIGH >190 mg/dl VERY HIGH Performed By: #### R ENAL, LIPID #### [facility] [address] [place] [address] [address] Keelye Hoskins Triglyceride [Mass/Vol] 261 mg/dL Critically high <=150 [facility] Comment on above: Performed By: #### R ENAL, LIPID #### [facility] [address] [place] [address] [address] Keeley Hoskins VLDL CALC 52.2 mg/dL Normal [facility] Comment on above: Performed By: #### R ENAL, LIPID #### [facility] [address] [place] [address] [address] Keeley Hoskins MICROALB CREAT RATIO RANDOMo n 01-27-2023 mALB 4.2 mg/L Normal <=30.0 [facility] Comment on above: Performed By: #### M CRR #### [facility] [address] [place] [address] [address] Keeley Hoskins URINE CREAT <13.00 Critically low 20.00-300.00 [facility] Comment on above: Performed By: #### M CRR #### [facility] [address] [place] [address] [address] Keeley Hoskins RENAL FUNCTION PANELon 10-06 Albumin [Mass/Vol] 4.0 g/dL Normal 3.4-5.0 [facility] Comment on above: Performed By: #### R ENLISSY, LIPID #### [facility] [address] [place] [address] Dr. Keeley Hoskins Calcium [Mass/Vol] 9.3 mg/dL Normal 8.5-10.1 [facility] Comment on above: Performed By: #### R ENLISSY, LIPID #### [facility] [address] [place] [address] [address] Keeley Hoskins Chloride [Moles/Vol] 101 mmol/L Normal 98-107 [facility] Comment on above: Performed By: #### R ENLISSY, LIPID #### [facility] [address] [place] [address] Dr. Keeley Hoskins CO2 [Moles/Vol] 28.9 mmol/L Normal 21.0-32.0 [facility] Comment on above: Performed By: #### R ENAL, LIPID #### [facility] [address] [place] [address] Dr. Keeley Hoskins Creatinine [Mass/Vol] 0.81 mg/dL Normal 0.55-1.02 [facility] Comment on above: Performed By: #### R ENAL, LIPID #### [facility] [address] [place] [address] Dr. Keeley Hoskins EGFR-AF KUWAITI >60 Normal >=60 [facility] Comment on above: Performed By: #### R ENAL, LIPID #### [facility] [address] [place] [address] [address] Keeley Hoskins EGFR-NON AF KU[place]I >60 Normal >=60 [facility] Comment on above: Performed By: #### R ENAL, LIPID #### [facility] [address] [place] [address] [address] Keeley Hoskins Glucose [Mass/Vol] 123 mg/dL Critically high 74-106 [facility] Comment on above: Performed By: #### R ENAL, LIPID #### [facility] [address] [place] [address] [address] Keeley Hoskins Phosphate [Mass/Vol] 3.9 mg/dL Normal 2.6-4.7 [facility] Comment on above: Performed By: #### R ENAL, LIPID #### [facility] [address] [place] [address] [address] Keeley Hoskins Potassium [Moles/Vol] 4.4 mmol/L Normal 3.5-5.1 [facility] Comment on above: Performed By: #### R ENAL, LIPID #### [facility] [address] [place] [address] [address] Keeley Hoskins Sodium [Moles/Vol] 140 mmol/L Normal 136-[address] [facility] Comment on above: Performed By: #### R ENLISSY, LIPID #### [facility] [address] [place] [address] [address] Keeley Hoskins Urea nitrogen [Mass/Vol] 12.0 mg/dL Normal 7.0-18.0 [facility] Comment on above: Performed By: #### R ENAL, LIPID #### [facility] [address] [place] [address] [address] Keeley Hoskins VITAMIN D 25 OHon 10-06-2022 VIT D 25-OH 37.8 ng/mL Normal [facility] Comment on above: Performed By: #### R ENAL, LIPID #### [facility] [address] [place] [address] [address] Keeley Hoskins VIT D RANGES SEE BELOW Normal [facility] Comment on above: Result Comment: <20 ng/mL Vit D deficient 20 - <30 ng/mL Vit D insufficient 30 - 100 ng/mL Vit D sufficient >100 ng/mL Potential Toxicity Performed By: #### R ENAL, LIPID #### [facility] [address] [place] [address] Dr. Keeley Hoskins NM STRESS/REST MULTIon 04-17 NM STRESS/REST MULTI Patient: SCAR JEFFREY Exam Date: 04/17/2022 : 1980 Gender:F Ordering : DR LORENZO CORTEZ . Admission #: [id number] Family : Order #: [id number] CLICK HERE TO VIEW EXAM RADIOLOGY REPORT [...] MD on 04/18/2022 at 11:44 Normal [facility] ECHOCARDIO M/2D COMPLETEon 0 03-30-2022 ECHOCARDIO M/2D COMPLETE Patient: SCAR JEFFREY Exam Date: 03/30/2022 : 1980 Gender:F Ordering : DR LORENZO CORTEZ . Admission #: [id number] Family : Order #: [id number] CLICK HERE TO VIEW EXAM ECHOCARDIOGRAM REPORT [...] M.D. on 03/30/2022 at 13:50 Normal [facility] LIPID PROFILEon 03-30-2022 CHOL-HDL RATIO NORM SEE BELOW Normal [facility] Comment on above: Result Comment: 3.3 - 4.4 LOW RISK 4.4 - 7.1 AVERAGE RISK 7.1 - 11.0 MODERATE RISK >11.0 HIGH RISK Performed By: #### R ENLISSY, LIPID #### [facility] [address] [place] [address] Dr. Keeley Hoskins Cholesterol [Mass/Vol] 140 mg/dL Normal <=200 [facility] Comment on above: Performed By: #### R ENLISSY, LIPID #### [facility] [address] [place] [address] [address] Keeley Hoskins Cholesterol in HDL [Mass/Vol] 30 mg/dL Critically low 40-60 [facility] Comment on above: Performed By: #### R ENLISSY, LIPID #### [facility] [address] [place] [address] [address] Keeley Hoskins Cholesterol in LDL [Mass/Vol] 69.2 mg/dL Normal [facility] Comment on above: Performed By: #### R ENLISSY, LIPID #### [facility] [address] [place] [address] Dr. Keeley Hoskins Cholesterol.total/C holesterol in HDL [Mass ratio] 4.7 {ratio} Normal [facility] Comment on above: Performed By: #### R ENLISSY, LIPID #### [facility] [address] [place] [address] [address] Keeley Hoskins HDL NORMAL > or = 60 mg/dl - LO W CARDIOVASCULAR RISK <40 mg/dl - HIGH CARDIOVASCULAR RISK Normal [facility] Comment on above: Performed By: #### R ENLISSY, LIPID #### [facility] [address] [place] [address] Dr. Keeley Hoskins LDL CALC NORMAL SEE BELOW Normal [facility] Comment on above: Result Comment: <100 mg/dl OPTIMAL 100 - 129 mg/dl NEAR OR ABOVE OPTIMAL 130 - 159 mg/dl BORDERLINE HIGH 160 - 189 mg/dl HIGH >190 mg/dl VERY HIGH Performed By: #### R ENLISSY, LIPID #### [facility] [address] [place] [address] [address] Keeley Hoskins Triglyceride [Mass/Vol] 204 mg/dL Critically high <=150 [facility] Comment on above: Performed By: #### R ENAL, LIPID #### [facility] [address] [place] [address] [address] Keeley Hoskins VLDL CALC 40.8 mg/dL Normal [facility] Comment on above: Performed By: #### R ENAL, LIPID #### [facility] [address] [place] [address] [address] Keeley Hoskins MICROALB CREAT RATIO RANDOMo n 03-30-2022 mALB 8.3 mg/L Normal <=30.0 [facility] Comment on above: Performed By: #### M CRR #### [facility] [address] [place] [address] [address] Keeley Hoskins MALB CR RATIO 466.0 mg/g Critically high 0.0-29.9 [facility] Comment on above: Performed By: #### M CRR #### [facility] [address] [place] [address] [address] Keeley Hoskins MALB CR RATIO RANGE SEE BELOW Normal [facility] Comment on above: Result Comment: NO M ICROALBUMINURIA 0-29 MG/G CLINICAL MICROALBUMINURIA 30-300 MG/G MACROALBUMINURIA >300 MG/G Performed By: #### M CRR #### [facility] [address] [place] [address] [address] Keeley Hoskins URINE CREAT 17.81 mg/dL Critically low 20.00-300.00 [facility] Comment on above: Performed By: #### M CRR #### [facility] [address] [place] [address] [address] Keeley Hoskins RENAL FUNCTION PANELon 03-30 Albumin [Mass/Vol] 4.2 g/dL Normal 3.4-5.0 [facility] Comment on above: Performed By: #### R ENAL, LIPID #### [facility] [address] [place] [address] [address] Keeley Hoskins Calcium [Mass/Vol] 9.2 mg/dL Normal 8.5-10.1 [facility] Comment on above: Performed By: #### R ENAL, LIPID #### [facility] [address] [place] [address] [address] Keeley Hoskins Chloride [Moles/Vol] 98 mmol/L Normal 98-107 [facility] Comment on above: Performed By: #### R ENAL, LIPID #### [facility] [address] [place] [address] [address] Keeley Hoskins CO2 [Moles/Vol] 28.6 mmol/L Normal 21.0-32.0 [facility] Comment on above: Performed By: #### R ENAL, LIPID #### [facility] [address] [place] [address] [address] Keeley Hoskins Creatinine [Mass/Vol] 1.17 mg/dL Critically high 0.55-1.02 [facility] Comment on above: Performed By: #### R ENAL, LIPID #### [facility] [address] [place] [address] [address] Keeley Hoskins EGFR-AF KUWAITI >60 Normal >=60 [facility] Comment on above: Performed By: #### R ENAL, LIPID #### [facility] [address] [place] [address] [address] Keeley Hoskins EGFR-NON AF KUWAITI 50 mL/min/1.73m2 Critically low >=60 [facility] Comment on above: Performed By: #### R ENAL, LIPID #### [facility] [address] [place] [address] [address] Keeley Hoskins Glucose [Mass/Vol] 212 mg/dL Critically high 74-106 [facility] Comment on above: Performed By: #### R ENAL, LIPID #### [facility] [address] [place] [address] [address] Keeley Hoskins Phosphate [Mass/Vol] 4.0 mg/dL Normal 2.6-4.7 [facility] Comment on above: Performed By: #### R ENAL, LIPID #### [facility] [address] [place] [address] [address] Keeley Hoskins Potassium [Moles/Vol] 4.1 mmol/L Normal 3.5-5.1 [facility] Comment on above: Performed By: #### R ENAL, LIPID #### [facility] [address] [place] [address] [address] Keeley Hoskins Sodium [Moles/Vol] 136 mmol/L Normal 136-[address] [facility] Comment on above: Performed By: #### R ENAL, LIPID #### [facility] [address] [place] [address] Dr. Keeley Hoskins Urea nitrogen [Mass/Vol] 16.0 mg/dL Normal 7.0-18.0 [facility] Comment on above: Performed By: #### R ENAL, LIPID #### [facility] [address] [place] [address] Dr. Keeley Hoskins VITAMIN D 25 OHon 03-30-2022 VIT D 25-OH 33.8 ng/mL Normal [facility] Comment on above: Performed By: #### V ITAD #### [facility] [address] [place] [address] Dr. Keeley Hoskins VIT D RANGES SEE BELOW Normal [facility] Comment on above: Result Comment: <20 ng/mL Vit D deficient 20 - <30 ng/mL Vit D insufficient 30 - 100 ng/mL Vit D sufficient >100 ng/mL Potential Toxicity Performed By: #### V ITAD #### [facility] [address] [place] [address] Dr. Keeley Hoskins BNPon 03-16-2022 Natriuretic peptide B (Bld) [Mass/Vol] 20.0 pg/mL Normal <=450.0 [facility] Comment on above: Performed By: #### T 7, TSH, CMP, BNP #### [facility] [address] [place] [address] Dr. Keeley Hoskins CBC AUTO DIFFon 03-16-2022 BASO # 0.1 103/ul Normal 0.0-0.1 [facility] Comment on above: Performed By: #### R ENAL, LIPID #### [facility] [address] [place] [address] Dr. Keeley Hoskins Basophils/100 WBC (Bld) 1.0 % Normal 0.2-2.0 [facility] Comment on above: Performed By: #### R ENAL, LIPID #### [facility] [facility] [address] [place] [address] Dr. Keeley Hoskins EO # 0.1 103/ul Normal 0.0-0.7 [facility] Comment on above: Performed By: #### R ENAL, LIPID #### [facility] [address] [place] [address] Dr. Keeley Hoskins Eosinophils/100 WBC (Bld) 1.8 % Normal 0.9-7.0 [facility] Comment on above: Performed By: #### R ENAL, LIPID #### [facility] [address] [place] [address] Dr. Keeley Hoskins Erythrocyte distribution width (RBC) [Ratio] 12.3 % Normal 11.0-15.0 [facility] Comment on above: Performed By: #### R ENAL, LIPID #### [facility] [address] [place] [address] Dr. Keeley Hoskins Hematocrit (Bld) [Volume fraction] 37.3 % Normal 36.0-48.0 [facility] Comment on above: Performed By: #### R ENAL, LIPID #### [facility] [address] [place] [address] Dr. Keeley Hoskins Hemoglobin (Bld) [Mass/Vol] 12.7 g/dL Normal 12.0-16.0 [facility] Comment on above: Performed By: #### R ENAL, LIPID #### [facility] [address] [place] [address] Dr. Keeley Hoskins IG # 0.04 10e3/ul Critically high 0.00-0.03 [facility] Comment on above: Performed By: #### R ENAL, LIPID #### [facility] [address] [place] [address] Dr. Keeley Hoskins IG % 0.6 % Critically high 0.0-0.5 [facility] Comment on above: Performed By: #### R ENAL, LIPID #### [facility] [address] [place] [address] Dr. Keeley Hoskins LYMPH # 1.8 103/ul Normal 1.2-3.8 [facility] Comment on above: Performed By: #### R ENAL, LIPID #### [facility] [address] [place] [address] Dr. Keeley Hoskins Lymphocytes/100 WBC (Bld) 26.4 % Normal 20.5-60.0 [facility] Comment on above: Performed By: #### R ENAL, LIPID #### [facility] [address] [place] [address] Dr. Keeley Hoskins MANUAL DIFF REQ NO Normal [facility] Comment on above: Performed By: #### R ENAL, LIPID #### [facility] [address] [place] [address] Dr. Keeley Hoskins MCH (RBC) [Entitic mass] 28.0 pg Normal 26.7-34.0 [facility] Comment on above: Performed By: #### R ENAL, LIPID #### [facility] [address] [place] [address] Dr. Keeley Hoskins MCHC (RBC) [Mass/Vol] 34.0 g/dL Normal 29.9-35.2 [facility] Comment on above: Performed By: #### R ENAL, LIPID #### [facility] [address] [place] [address] Dr. Keeley Hoskins MCV (RBC) [Entitic vol] 82.2 fL Normal 81.0-99.0 [facility] Comment on above: Performed By: #### R ENAL, LIPID #### [facility] [address] [place] [address] Dr. Keeley Hoskins MONO # 0.5 103/ul Normal 0.3-0.8 [facility] Comment on above: Performed By: #### R ENAL, LIPID #### [facility] [address] [place] [address] Dr. Keeley Hoskins Monocytes/100 WBC (Bld) 6.6 % Normal 1.7-12.0 [facility] Comment on above: Performed By: #### R ENAL, LIPID #### [facility] [address] [place] [address] Dr. Keeley Hoskins NEUT # 4.4 103/ul Normal 1.4-6.5 [facility] Comment on above: Performed By: #### R ENAL, LIPID #### [facility] [address] [place] [address] Dr. Keeley Hoskins Neutrophils/100 WBC (Bld) 63.6 % Normal 43.0-75.0 [facility] Comment on above: Performed By: #### R ENLISSY, LIPID #### [facility] [address] [address] [address] Keeley Hoskins Platelet mean volume (Bld) [Entitic vol] 10.4 fL Normal 9.5-13.5 [facility] Comment on above: Performed By: #### R SEGUN, LIPID #### [facility] [address] [address] [address] Keeley Hoskins PLT 283 103/ul Normal 150-450 [facility] Comment on above: Performed By: #### R SEGUN, LIPID #### [facility] [address] [address] [address] Keeley Hoskins RBC 4.54 106/ul Normal 4.20-5.40 [facility] Comment on above: Performed By: #### R SEGUN, LIPID #### [facility] [address] [address] [address] Keeley Hoskins WBC 6.9 103/ul Normal 4.0-11.0 [facility] Comment on above: Performed By: #### R SEGUN, LIPID #### [facility] [address] [address] [address] Keeley Hoskins FREE THYROXINE INDEX T7on FTI 2.91 Normal 1.30-4.50 [facility] Comment on above: Performed By: #### R ENLISSY, LIPID #### [facility] [address] [place] [address] Dr. Keeley Hoskins T3U 30.0 % Normal 30.0-39.0 [facility] Comment on above: Performed By: #### R ENILSSY, LIPID #### [facility] [address] [address] [address] Keeley Hoskins T4 [Mass/Vol] 9.70 ug/dL Normal 4.80-13.90 [facility] Comment on above: Performed By: #### R ENLISSY, LIPID #### [facility] [address] [address] [address] Keeley Hoskins IRONon 03-16-2022 Iron [Mass/Vol] 72.0 ug/dL Normal 50.0-170.0 [facility] Comment on above: Performed By: #### I MARY #### [facility] [address] [address] [address] Keeley Hoskins PROF 14(COMP METB)on 022 Albumin [Mass/Vol] 3.9 g/dL Normal 3.4-5.[address] [facility] Comment on above: Performed By: #### T 7, TSH, CMP, BNP #### [facility] [address] [address] [address] Keeley Hoskins Albumin/Globulin [Mass ratio] 1.1 {ratio} Normal [facility] Comment on above: Performed By: #### T 7, TSH, CMP, BNP #### [facility] [address] [place] [address] Dr. Keeley Hoskins ALP [Catalytic activity/Vol] 143 U/L Critically high 46-116 [facility] Comment on above: Performed By: #### T 7, TSH, CMP, BNP #### [facility] [address] [place] [address] Dr. Keeley Hoskins ALT [Catalytic activity/Vol] 43 U/L Normal 14-59 [facility] Comment on above: Performed By: #### T 7, TSH, CMP, BNP #### [facility] [address] [place] [address] Dr. Keeley Hoskins Anion gap [Moles/Vol] 15.6 mmol/L Normal [facility] Comment on above: Performed By: #### T 7, TSH, CMP, BNP #### [facility] [address] [place] [address] Dr. Keeley Hoskins AST [Catalytic activity/Vol] 23 U/L Normal 15-37 [facility] Comment on above: Performed By: #### T 7, TSH, CMP, BNP #### [facility] [address] [place] [address] Dr. Keeley Hoskins Bilirubin [Mass/Vol] 0.6 mg/dL Normal 0.2-1.0 [facility] Comment on above: Performed By: #### T 7, TSH, CMP, BNP #### [facility] [address] [place] [address] Dr. Keeley Hoskins Calcium [Mass/Vol] 9.2 mg/dL Normal 8.5-10.[address] [facility] Comment on above: Performed By: #### T 7, TSH, CMP, BNP #### [facility] [address] [address] [address] Keeley Hoskins Chloride [Moles/Vol] 96 mmol/L Critically low 98-107 [facility] Comment on above: Performed By: #### T 7, TSH, CMP, BNP #### [facility] [address] [place] [address] Dr. Keeley Hoskins CO2 [Moles/Vol] 25.1 mmol/L Normal 21.0-32.0 [facility] Comment on above: Performed By: #### T 7, TSH, CMP, BNP #### [facility] [address] [place] [address] Dr. eKeley Hoskins Creatinine [Mass/Vol] 1.14 mg/dL Critically high 0.55-1.02 [facility] Comment on above: Performed By: #### T 7, TSH, CMP, BNP #### [facility] [address] [place] [address] Dr. Keeley Hoskins EGFR-AF KUWAITI >60 Normal >=60 [facility] Comment on above: Performed By: #### T 7, TSH, CMP, BNP #### [facility] [address] [place] [address] Dr. Keeley Hoskins EGFR-NON AF KUWAITI 52 mL/min/1.73m2 Critically low >=60 [facility] Comment on above: Performed By: #### T 7, TSH, CMP, BNP #### [facility] [address] [place] [address] Dr. Keeley Hoskins Globulin (S) [Mass/Vol] 3.4 g/dL Normal [facility] Comment on above: Performed By: #### T 7, TSH, CMP, BNP #### [facility] [address] [place] [address] Dr. Keeley Hoskins Glucose [Mass/Vol] 438 mg/dL Critically high 74-106 [facility] Comment on above: Performed By: #### T 7, TSH, CMP, BNP #### [facility] [address] [place] [address] Dr. Keeley Hoskins Potassium [Moles/Vol] 4.7 mmol/L Normal 3.5-5.1 [facility] Comment on above: Performed By: #### T 7, TSH, CMP, BNP #### [facility] [address] [place] [address] Dr. Keeley Hoskins Protein [Mass/Vol] 7.3 g/dL Normal 6.4-8.[address] [facility] Comment on above: Performed By: #### T 7, TSH, CMP, BNP #### [facility] [address] [place] [address] Dr. Keeley Hoskins Sodium [Moles/Vol] 132 mmol/L Critically low 136-145 [facility] Comment on above: Performed By: #### T 7, TSH, CMP, BNP #### [facility] [address] [place] [address] Dr. Keeley Hoskins Urea nitrogen [Mass/Vol] 17.0 mg/dL Normal 7.0-18.0 [facility] Comment on above: Performed By: #### T 7, TSH, CMP, BNP #### [facility] [address] [place] [address] Dr. Keeley Hoskins Urea nitrogen/Creatinine [Mass ratio] 14.9 mg/mg Normal [facility] Comment on above: Performed By: #### T 7, TSH, CMP, BNP #### [facility] [address] [place] [address] Dr. Keeley Hoskins TSHon 03-16-2022 TSH 2.240 uIU/mL Normal 0.358-3.740 [facility] Comment on above: Performed By: #### R ENAL, LIPID #### [facility] [address] [place] [address] Dr. Keeley Hoskins KNEE RIGHT 3 [facility] KNEE RIGHT 3 [facility] [place] Department of Radiology [address] [place] [phone] ===== Patient Name: SCAR JEFFREY : 1980 Sex: F Age: Race: White Pt. Location: Patient Status: O Ordered Date: 06/13/2021 9:05:00 AM Completed Date: 06/13/2021 09:13 AM Requesting Provider: TONYA CENTENO Attending Provider: TONYA CENTENO Report Copy To: Signs & Symptoms: M25.561 Pain in right knee I10 History: Comments: standing , Weight Bearing?: Y Exam: KNEE RIGHT 3 [facility] ===== KNEE RIGHT 3 [facility] 06/13/2021 9:13 AM CLINICAL INDICATIONS: M25.561 [...] pathology Electronically signed: Toyin Juan. Transcribed by: [email or web address], User Resident: Electronically Signed by: TOYIN JUAN @ 06/13/2021 11:03 AM Normal [facility] Comment on above: Order Comment: stand ing , Weight Bearing?: Y KNEE RIGHT 3 [facility] 1 KNEE RIGHT 3 [facility] [place] Department of Radiology [address] [place] [phone] ===== Patient Name: SCAR JEFFREY : 1980 Sex: F Age: Race: White Pt. Location: Patient Status: O Ordered Date: 11/15/2020 10:15:00 AM Completed Date: 11/15/2020 10:33 AM Requesting Provider: TONYA CENTENO Attending Provider: TONYA CENTENO Report Copy To: Signs & Symptoms: M25.561 Pain in right knee I10 History: [place] Comments: evaluate Exam: KNEE RIGHT 3 [facility] ===== KNEE RIGHT 3 [facility] 11/15/2020 10:33 AM CLINICAL INDICATIONS: M25.561 [...] reports Electronically signed: Naila Puentes. Transcribed by: [email or web address], User Resident: GREGG LEMONS Electronically Signed by: NAILA PUENTES @ 11/15/2020 11:25 AM I personally read this/these film(s) with this resident Normal [facility] Comment on above: Order Comment: evalu ate TIBIA FIBULA RIGHTon 021 TIBIA FIBULA RIGHT [facility] Department of Radiology [address] [place] [phone] ===== Patient Name: SCAR JEFFREY : [...] abnormality. Electronically signed: Naila Puentes. Transcribed by: [email or web address], User Resident: Electronically Signed by: NAILA PUENTES @ 11/15/2020 11:37 AM Normal [facility] Comment on above: Order Comment: evalu ate Vital Signs Date Time Vital Sign Value Performing Clinician Facility 10-30-2024 10:00-0500 Body height 166.4 cm Zay Gonzalez MD Work Phone: [facility] 10-30-2024 10:00-0500 Body mass index (BMI) [Ratio] 40.81 kg/m2 Zay Gonzalez MD Work Phone: [facility] 10-30-2024 10:00-0500 Body weight 112.95 kg Zay Gonzalez MD Work Phone: [facility] 10-30-2024 10:00-0500 Diastolic blood pressure 68 mm[Hg] Zay Gonzalez MD Work Phone: [facility] 10-30-2024 10:00-0500 Heart rate 73 /min Zay Gonzalez MD Work Phone: [facility] 10-30-2024 10:00-0500 Respiratory rate 18 /min Zay Gonzalez MD Work Phone: [facility] 10-30-2024 10:00-0500 SaO2% (BldA) [Mass fraction] 97 % Zay Gonzalez MD Work Phone: [facility] 10-30-2024 10:00-0500 Systolic blood pressure 122 mm[Hg] Zay Gonzalez MD Work Phone: [facility] 10-21-2024 09:27-0500 Body height 166.4 cm Shara Metcalf MD Work Phone: [facility] 10-21-2024 09:27-0500 Body mass index (BMI) [Ratio] 42.28 kg/m2 Shara Metcalf MD Work Phone: [facility] 10-21-2024 09:27-0500 Body weight 117.03 kg Shara Metcalf MD Work Phone: [facility] 10-21-2024 09:27-0500 Diastolic blood pressure 63 mm[Hg] Shara Metcalf MD Work Phone: [facility] 10-21-2024 09:27-0500 Heart rate 82 /min Shara Metcalf MD Work Phone: [facility] 10-21-2024 09:27-0500 Systolic blood pressure 147 mm[Hg] Shara Metcalf MD Work Phone: [facility] 09-23-2024 13:49-0500 Blood Pressure Location Kobe NILL [facility] 09-23-2024 13:49-0500 Diastolic blood pressure 64 mm[Hg] Kobe NILL [facility] 09-23-2024 13:49-0500 Heart rate 72 /min Kobe NILL [facility] 09-23-2024 13:49-0500 Respiratory rate 16 /min Kobe NILL [facility] 09-23-2024 13:49-0500 Systolic blood pressure 146 mm[Hg] Kobe NILL [facility] 06-23-2024 10:10-0400 Body height 166.4 cm Zay Gonzalez MD Work Phone: [facility] 06-23-2024 10:10-0400 Body mass index (BMI) [Ratio] 59.16 kg/m2 Zay Gonzalez MD Work Phone: [facility] 06-23-2024 10:10-0400 Body weight 163.75 kg Zay Gonzalez MD Work Phone: [facility] 06-23-2024 10:10-0400 Diastolic blood pressure 60 mm[Hg] Zay Gonzalez MD Work Phone: [facility] 06-23-2024 10:10-0400 Heart rate 98 /min Zay Gonzalez MD Work Phone: [facility] 06-23-2024 10:10-0400 Respiratory rate 18 /min Zay Gonzalez MD Work Phone: [facility] 06-23-2024 10:10-0400 Systolic blood pressure 160 mm[Hg] Zay Gonzalez MD Work Phone: [facility] 06-03-2024 16:01-0400 Blood Pressure Location Kobe NILL [facility] 06-03-2024 16:01-0400 Diastolic blood pressure 70 mm[Hg] Kobe NILL [facility] 06-03-2024 16:01-0400 Heart rate 72 /min Kobe NILL [facility] 06-03-2024 16:01-0400 Respiratory rate 16 /min Kobe NILL [facility] 06-03-2024 16:01-0400 Systolic blood pressure 132 mm[Hg] Kobe NILL [facility] Encounters Encounter Date Encounter Type Care Provider Facility Start: 03-24-2025 ambulatory Kobe R NILL Facility :[facility] Start: 02-03-2025 ambulatory Castillo Rollins acility:[facility] Start: 01-30-2025 End: 01-30-2025 ambulatory ZAY GONZALEZ Not Available Start: 01-27-2025 End: 01-27-2025 ambulatory Kobe R NILL Facility:[facility] Start: 01-27-2025 End: 01-27-2025 Patient encounter procedure Kobe R NILL [facility] Start: 12-23-2024 End: 12-23-2024 ambulatory Kobe R NILL Facility:[facility] Start: 11-25-2024 End: 11-25-2024 ambulatory EMANUEL FIORE Not Available Start: 10-30-2024 End: 10-30-2024 Bamboo sumeet Gonzalez MD Work Phone: [facility] Start: 10-30-2024 End: 10-30-2024 Bamboo flowsheet Zay Gonzalez MD Work Phone: [facility] Start: 10-30-2024 End: 10-30-2024 Telephone encounter Zay Gonzalez MD Work Phone: [facility] Start: 10-30-2024 End: 10-30-2024 Office outpatient visit 40 minutes Zay Gonzalez MD Work Phone: [facility] Comment on above: Type 1 diabetes [...] Start: 09-23-2024 End: 09-23-2024 ambulatory Kobe ROBERTSON Facility:[facility] Start: 09-23-2024 End: 09-23-2024 Patient encounter procedure Kobe Davidson CHINAL [facility] Start: 06-24-2024 End: 06-24-2024 ambulatory Kobe ATKINSONL Facility:[facility] Start: 06-24-2024 End: 06-24-2024 Patient encounter procedure Kobe Lety ATKINSONL [facility] Start: 06-23-2024 End: 06-23-2024 Bamboo flowsheet Zay Gonzalez MD Work Phone: [facility] Start: 06-23-2024 End: 06-23-2024 Bamboo flowsheet Zay Gonzalez MD Work Phone: [facility] Start: 06-23-2024 End: 06-23-2024 Office outpatient visit 40 minutes Zay Gonzalez MD Work Phone: [facility] Comment on above: Type 1 diabetes bar itus with hyperglycemia (HCC) ([facility]/HCC) (Primary Dx); Vitamin D deficiency; Encounter for dietary consultation; Insulin long-term use ([facility]); Microalbuminuria; Insulin pump in place; Encounter for fitting or adjustment of insulin pump; Primary hypertension ([facility]/HCC); 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 ([facility]/HCC) Start: 06-23-2024 End: 06-23-2024 ambulatory ZAY GONZALEZ Not Available Start: 06-18-2024 End: 06-18-2024 Lab Drop off Kobe Lety ATKINSONL [facility] Start: 06-18-2024 End: 06-18-2024 ambulatory Kobe ATKINSONL Facility:[facility] Start: 06-18-2024 End: 06-18-2024 [facility] Start: 06-03-2024 End: 06-03-2024 [facility]ulatory [facility] Start: 06-03-2024 End: 06-03-2024 Patient encounter procedure Kobe ROBERTSON [facility] Start: 01-22-2023 End: 01-23-[address] [...] Start: 10-15-2020 End: 11-01-2020 ambulatory TONYA CENTENO Facility:[facility] Procedures Date Procedure Procedure Detail Performing [...] above: multiple section Kobe Spaulding section Kobe Spauldign Cholecystectomy Kobe ROBERTSON Decompression of med jesusita nerve Kobe ROBERTSON Comment on above: right Excision of vocal co rd nodule Kobe ROBERTSON Insertion of insulin pump Nohelia ROBERTSON Plan of Treatment Date Care Activity Detail Author Start: 01-30-2025 End: 01-30-2025 Patient encounter procedure 01/30/2025 10:20 AM EDT Office Visit [facility] [address] [place] [address] Zay Gonzalez MD [address] [place] [address] [facility] Start: 10-30-2024 End: 10-30-2024 Patient encounter procedure [facility] Comment on above: Arrived Start: 10-27-2024 End: 10-27-2024 Patient encounter procedure 10/27/2024 10:10 AM EST Office Visit [facility] [address] [place] [address] Zay Gonzalez MD [address] [place] [address] [facility] Start: 10-21-2024 End: 10-21-2024 Patient encounter procedure 10/21/2024 9:50 AM EST Office Visit [facility] [address] [facility] [address] [place] [id number] Shara Metcalf MD [address] [place] [address] [place] [address] Arrived [facility] Comment on above: Arrived Start: 06-23-2024 End: 06-23-2024 Patient encounter procedure 06/23/2024 10:40 AM EDT Office Visit [facility] [address] [place] [address] Zay Gonzalez MD [address] [place] [address] Type 1 diabetes mellitus with hyperglycemia (HCC) (CMS/HCC) [facility] Comment on above: Type 1 diabetes bar itus with hyperglycemia (HCC) ([facility]/HCC) Payers Date Payer Category Payer Self-pay 2021 Private Health Insurance flower [id number] 2019 Medicare (Managed Care) [employer] Katelynn [employer] [id number] 2017 Medicaid [id number] 1978 Unknown [id number] 2.16.840.1.182361.3.579.2. 647 1978 Unknown [id number] 2.16.840.1.679923.3.579.2. 593 1978 Unknown [id number] 2.16.840.1.006459.3.579.2. 593 1978 Unknown [id number] 2.16.840.1.969436.3.579.2. 593 1978 Unknown [id number] 2.16.840.1.649891.3.579.2. 593 1978 Unknown [id number] 2.16.840.1.194261.3.579.2. 593 1978 Unknown [id number] 2.16.840.1.899550.3.579.2. 593 1978 Unknown [id number] 2.16.840.1.674610.3.579.2. 593 1978 Unknown [id number] 2.16.840.1.738065.3.579.2. 59 1978 Unknown [id number] 2.16.840.1.180559.3.579.2. 593 1978 Unknown [id number] 2.16.840.1.773413.3.579.2. 72 1978 Unknown [id number] 2.16.840.1.662221.3.579.2. 72 1978 Unknown [id number] 2.16.840.1.205467.3.579.2 1978 Unknown [id number] 2.16.840.1.790134.3.579.2. 72 1978 Unknown [id number] 2.16.840.1.628913.3.579.2. 72 1978 Unknown [id number] 2.16.840.1.721865.3.579.2. 72 1978 Unknown [id number] 2.16.840.1.752322.3.579.2 1978 Unknown [id number] 2.16.840.1.600539.3.579.2. 727 1978 Unknown [id number] 2.16.840.1.972176.3.579.2. 1259 1978 Unknown [id number] 2.16.840.1.607720.3.579.2. 1259 1978 Unknown [id number] 2.16.840.1.784144.3.579.2. 1259 1978 Unknown [id number] 2.16.840.1.688295.3.579.2. 1259 1978 Unknown [id number] 2.16.840.1.999198.3.579.2. 1259 1959 Medicaid [id number] 1959 Private Health Insurance [id number] Unknown [id number] 2.16.840.1.799512.3.579.2. 531 Social History Date Type Detail Facility Start: 06-03-2024 End: 01-27-2025 Tobacco smoking status Ex-smoker (finding) [facility] Tobacco smoking status Never [facility] Start: 01-23-2024 End: 10-30-2024 Sex Assigned At Female [facility] Start: 09-10-2005 End: 09-10-2016 History of tobacco use Current [facility] Start: 09-10-2005 End: 09-10-2016 History of tobacco use Cigarette Smoker [facility] Start: 12-18-2023 End: 10-30-2024 Tobacco use and exposure Smokeless tobacco non-user [facility] Start: 06-12-2024 End: 10-30-2024 Alcoholic beverage intake Ex-drinker (finding) [facility] Start: 01-23-2024 End: 10-30-2024 History of Social function [facility] Start: 1980 Sex assigned at Not on file [facility] Sexual Orientation [facility] Start: 03-26-2019 Sex Female (finding) [facility] Medical Equipment Procedure Code Equipment Code Equipment Origin al Text Equipment Identifier Dates [id number] Start: 06-10-2024 End: 06-10-2025 TEST BLOOD SUGAR SIX TIMES DAILY [id number] Start: 10-29-2024 Functional Status Date Assessment Result Facility 01-27-2025 Functional Status N/A [facility] [place] 09-23-2024 Functional Status N/A [facility] [place] 06-03-2024 Functional Status N/A [facility] [place] Clinical Notes 04-17-2022 to 10-30-2024 Telephone Encounter - Jose Radha - 10/30/2024 11:18 AM ESTTelephone Encounter - Jose Garcia - 10/30/2024 11:18 AM Ev Gonzalez MD - 10/30/2024 9:50 AM EST Note Date & Type Note Facility 10-30-2024 Telephone encounter Note Please resend Dexcom G7 and kit to [facility] please and thank you! Omnipod 5 pods to [facility] as well. Thanks! [facility] 10-30-2024 Miscellaneous Notes Please resend Dexcom G7 and kit to [facility] please and thank you! Omnipod 5 pods to [facility] as well. Thanks! documented in this encounter [facility] 10-30-2024 History of Present illness Narrative Scar [...] readings . wants to check her for Riverdale's disease since her mother had it. Interim [...] 40 mg, Every 24 hours Continuous Glucose Scientific Advisor (Dexcom G7 Scientific Advisor) device 1 kit, Does not apply, Continuous [...] (ZOCOR) 20 mg, Nightly Vitamin D, Ergocalciferol, 89814 units capsule 1 tablet, Weekly ALLERGIES: Allergies [...] Type 1 diabetes mellitus with hyperglycemia (HCC) ([facility]) - POCT glycosylated hemoglobin (Hb A1C) docked [...] Encounter for dietary consultation Insulin long-term use ([facility]) Microalbuminuria Insulin pump in place Encounter for fitting or adjustment of insulin pump Primary hypertension ([facility]/HCC) 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) 08/19/2012 Dysthymia (CMS/[facility]) 08/19/2012 Epilepsy (CMS/[facility]) 08/19/2012 Insomnia 08/19/2012 Laryngopharyngeal reflux 12/18/2023 Mass of head 12/18/2023 Type 2 diabetes mellitus without complication ([facility]) 08/19/2012 Sleep apnea 12/18/2023 Sinusitis, chronic 12/18/2023 [...] Hypertension (CMS/HCC) 01/17/2024 Irritable bowel syndrome 01/17/2024 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 01/17/2024 Obesity with body mass index 30 or greater 01/17/2024 Pain in joint of right shoulder 08/02/2020 Pain in right arm 08/02/2020 Pain in right knee 08/02/2020 Type 1 diabetes mellitus ([facility]) 01/17/2024 Seizure disorder ([facility] 01/17/2024 Resolved Ambulatory Problems Diagnosis Date Noted Chronic laryngitis 12/18/2023 Past Medical History: Diagnosis Date Congestive heart failure (CHF) [place] Essential (primary) hypertension [place]) Hypothyroid ([facility]) half-way (current) use of insulin ([facility] Migraine [place] Presence of insulin pump (external) (internal) Proteinuria, unspecified Seizures ([facility] Torn meniscus 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 ([facility] Vitamin D deficiency, unspecified Past Surgical History: [...] day at the same time Continuous Glucose Scientific Advisor (Dexcom G7 Scientific Advisor) device 1 kit continuously 1 each 1 [...] by mouth at bedtime Vitamin D, Ergocalciferol, 06798 units capsule Take 1 tablet by mouth [...] No tx needed documented in this encounter [facility] 09-23-2024 Note General Surgery Offi ce/Clinic Note [...] (corpus and cervix) (more content not included)... [facility] Comment on above: Result Comment: Elec tronically Signed By: AILYN CHENG, Kobe Radford\Date and Time Signed: 09/23/24 15:16 EST 06-23-2024 History of Present illness Narrative Sacr Jeffrey is a 43 y.o. female Zay [...] readings . wants to check her for River[place]'s disease since her mother had it. Interim [...] (ZOCOR) 20 mg, Nightly Vitamin D, Ergocalciferol, 84398 units capsule 1 tablet, Weekly ALLERGIES: Allergies Allergen Reactions Codeine Hydrocodone Throat swelling, vomiting Morphine GI intolerance vomiting Oxcarbazepine Other Reaction(s): tightness in chest Penicillin G Hives Penicillins Valproic Acid Other Reaction(s): Trouble Breathing Lamotrigine Rash Past Medical History: Diagnosis Date Anxiety Congestive heart failure (CHF) (CMS/HCC) Essential (primary) hypertension (CMS/HCC) Hypothyroid (CMS/HCC) half-way (current) use of insulin (CMS/HCC) Migraine (CMS/HCC) Presence of insulin pump (external) (internal) Proteinuria, unspecified Seizures (CMS/HCC) Sleep apnea Torn meniscus 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 ([facility]) Vitamin D deficiency, unspecified Past Surgical History: [...] Type 1 diabetes mellitus with hyperglycemia (HCC) ([facility]) - POCT glucose manually resulted [...] months (around 10/24/2024). documented in this encounter [facility] 06-03-2024 Note General Surgery Offi ce/Clinic Note [...] mEq (more content not included)... [facility] Comment on above: Result Comment: Elec [...] 85% of maximum predicted heart rate. [facility] Evaluation + Plan note Future Appointments Appointment Date:06/18/2024 03:00:00 PM Scheduled Provider:Kobe ROBERTSON MD Location:[facility] Appointment Type:[facility] Surgery [address] [place] [address] Evaluation + Plan note Future Appointments Appointment Date:06/24/2024 02:00:00 PM Scheduled Provider:Kobe ROBERTSON MD Location:[facility] Appointment Type: Established [address] [place] [address] Evaluation + Plan note Future Appointments Appointment Date:03/24/2025 01:40:00 PM Scheduled Provider:Kobe ROBERTSON MD Location:[facility] Appointment Type: Procedure [address] [place] [address] Surgery [place] Evaluation note Diagnosis Type 1 diabetes mellitus with hyperglycemia (HCC) ([facility]/HCC)- Primary Vitamin D deficiency Encounter for dietary consultation Insulin long-term use ([facility]/HCC) Encounter for long-term (current) use of [...] Type 1 diabetes mellitus with hyperglycemia (HCC) ([facility]/HCC)- Primary Vitamin D deficiency Encounter for dietary consultation Insulin long-term use ([facility]/HCC) Encounter for long-term (current) use of insulin Microalbuminuria Proteinuria Insulin pump in place Insulin pump status Encounter for fitting or adjustment of insulin pump Fitting and adjustment of insulin pump Primary hypertension (CMS/HCC) Unspecified essential hypertension 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 (CMS/HCC) [facility] Narr[facility] No data available for this section [facility] Hospital Discharge instructions No data available for this section [facility] Progress note No data available for this section [facility] Summary Purpose Family History No Family [...] section and content) DATE CREATED AUTHOR 10/02/2021 [facility] DATE CREATED AUTHOR AUTHOR'S ORGANIZ ATION 01/23/2023 [facility] DATE CREATED AUTHOR AUTHOR'S ORGANIZ ATION 06/27/2024 [facility] DATE CREATED AUTHOR AUTHOR'S ORGANIZ ATION 09/03/2024 [facility] DATE CREATED AUTHOR AUTHOR'S ORGANIZ ATION 01/28/2025 [facility] DATE CREATED AUTHOR AUTHOR'S ORGANIZ ATION 02/05/2025 [facility] EPIC DATE CREATED AUTHOR AUTHOR'S ORGANIZ ATION 02/06/2025 [facility] Patient Care team informatio n (unrecognized section and content) Nib Inspector Relationship Specialty Start Date End Date Lorenzo Cortez MD [address] [facility] [place] [address] PCP - General Family Medicine 12/18/23 Nib Inspector Relationship Specialty Start Date End Date Lorenzo Cortez MD [address] [facility] [place] [address] PCP - General Family Medicine 12/18/23 Nib Inspector Relationship Specialty Start Date End Date Lorenzo Cortez MD [address] [facility] [place] [address] PCP - General Family Medicine 12/18/23 Nib Inspector Relationship Specialty Start Date End Date Lorenzo Cortez MD [address] [facility] [place] [address] PCP - General Family Medicine 12/18/23 Nib Inspector Relationship Specialty Start Date End Date Lorenzo Cortez MD [address] [place] [address] PCP - General Family Medicine 12/18/23 Nib Inspector Relationship Specialty Start Date End Date Lorenzo Cortez MD [address] [facility] [place] [address] PCP - General Family Medicine 12/18/23 Reason [...] BE BASED ON THE PRIMARY CLINICAL RECORDS. [facility] [facility]. provides no warranty or guarantee of the accuracy or completeness of information in this document.
--- OUTSIDE RECORDS SUMMARY | 2025-02-28 09:05 | XMS_ITS | Patient Health Record ---
Author Organization [facility] in [place] Address [address] [place] [address] Care Team Providers Care Biology Teacher Name Role Phone Joe Cortez Primary Care Provider [phone] MagnusJerri palaicosly Unavailable [phone] Allergies Allergen (clinical drug ingredient) Drug/Non Drug [...] by provider) Interpretation: Performing Lab: Notes/Report: [facility] , Sodium 134 136-145 mmol/L Potassium 4.7 3.5-5.1 mmol/L Chloride 96 98-107 mmol/L Carbon Dioxide 28.7 21.0-32.0 mmol/L Anion Gap 14.0 Glucose 354 74-106 mg/dL Blood Urea Nitrogen 14.0 7.0-18.0 mg/dL Creatinine 1.08 0.55-1.02 mg/dL Estimated GFR ( Kenna >60 >=60 mL/min/1.73m 2 Estimated GFR (Non- Sherri 55 >=60 mL/min/1.73m 2 BUN Creatinine Ratio 13.0 Calcium 9.5 8.5-10.1 mg/dL Bilirubin Total 0.5 0.2-1.0 mg/dL Aspartate Amino Transferase 24 15-37 U/L Alanine Aminotransferase 45 14-59 U/L Alkaline Phosphatase 137 46-116 U/L Total Protein 7.3 6.4-8.2 g/dL Albumin Level 3.9 3.4-5.0 g/dL Globulin 3.4 Albumin Globulin Ratio 1.1 Performing Lab: see note ML - [facility] LB BNP Reviewed date:08/26/2024 12:44:27 PM Interpretation: Performing Lab: Notes/Report: [facility] , NT Pro B Type Natriuretic Pept 7.0 <=450.0 pg/mL Performing Lab: see note ML - [facility] LB US soft tissue head and neck Reviewed date:09/08/2024 08:32:33 PM Interpretation: Performing Lab: Notes/Report: Source Facility: [facility] [place] [address] [place] [address] Ultrasound Report Signed Patient: SCAR JEFFREY MR#: [id number] : 1980 Acct:[id number] Age/Sex: 43 / F ADM Date: 09/05/24 Loc: US Attending Dr: Lorenzo Cortez M.D. Ordering Physician: Lorenzo Cortez M.D. Date of Service: 09/05/24 Procedure(s): US soft tissue head and neck Accession Number(s): [id number] cc: Lorenzo Cortez M.D. The [place] [id number] Patient Name: SCAR JEFFREY MRN: [id number] date: 1980 Sex: F Assigned Patient Location: US Current Patient Location: Accession/Order Number: [id number] Exam Date: 09/05/2024 10:33 Report Date: 09/08/2024 12:45 At the request of: LORENZO CORTEZ Procedure: US soft tissue head and neck [...] Signed By: 09/08/24 1247 DD/ 1245 TD/TT: Associate Broker: [place] [address] Ultrasound Report Signed Patient: SCAR JEFFREY MR#: [id number] : 1980 Acct:[id number] Age/Sex: 43 / F ADM Date: 09/05/24 Loc: US Attending Dr: Gilberto Cortez M.D. Ordering Physician: Lorenzo Cortez M.D. Date of Service: 09/05/24 Procedure(s): US sof t tissue head and neck Accession Number(s): [id number] cc: Lorenzo Cortez M.D. [place] [address] Patient Name: SCAR JEFFREY MRN: [id number] date: 1980 Sex: F Assigned Patient Location: US Current Patient Location: Accession/Order Numb er: [id number] Exam Date: 10:33 Report Date: 09/08/2024 12:45 At the request of: LORENZO CORTEZ Procedure: US soft tissue head and neck [...] Signed By: 09/08/24 1247 DD/ 1245 TD/TT: Associate Broker: MR angio head wo con (Not ye t reviewed by provider) Interpretation: Performing Lab: Notes/Report: Source Facility: [place] [address] [place] [address] Magnetic Resonance Report Signed Patient: SCAR JEFFREY MR#: [id number] : 1980 Acct:[id number] Age/Sex: 44 / F ADM Date: 02/27/25 Loc: MRI Attending Dr: Lorenzo Cortez M.D. Ordering Physician: Lorenzo Cortez M.D. Date of Service: 02/27/25 Procedure(s): MR angio head wo con Accession Number(s): [id number] cc: Lorenzo Cortez M.D. [place] [address] Patient Name: SCAR JEFFREY MRN: [id number] date: 1980 Sex: F Assigned Patient Location: MRI Current Patient Location: LAB Accession/Order Number: [id number] Exam Date: 02/27/2025 15:34 Report Date: 02/27/2025 15:42 At the request of: LORENZO CORTEZ MD Procedure: MR angio head wo con MR angio head wo con 02/27/2025 9:33 AM SIGN OF SYMPTOMS: amaurosis fugax both eyes PROTOCOL: Axial 3-D cvnm-bm-gkkame MRA of the brain without contrast including 3-D reconstructions COMPARISON: None. FINDINGS: The superior cerebellar arteries, posterior inferior cerebellar arteries, and the basilar artery are within normal limits. The posterior cerebral arteries are unremarkable. The intracranial segments of the internal carotid arteries are within normal limits. There are normal anterior and middle cerebral arteries. Anterior communicating artery is patent. Posterior communicating arteries are hypoplastic bilaterally which is a normal variant.. The deep venous system and dural venous systems appear to be patent. MR/MR angio head wo con IMPRESSION: No focal stenosis, occlusion, or aneurysmal dilatation. Impression dictated by: Jim Rico M.D. 02/27/2025 3:42 PM Dictation Location: [place] [address] Electronically authenticated by: [id number] Y Date: 02/27/2025 15:42 Dictated By: Jim Rico M.D. Signed By: 02/27/25 1545 DD/ 1542 TD/TT: Associate Broker: [place] [address] Magnetic Resonance Report Signed Patient: SCAR JEFFREY MR#: [id number] : 1980 Acct:[id number] Age/Sex: 44 / F ADM Date: 02/27/25 Loc: MRI Attending Dr: Gilberto Cortez M.D. Ordering Physician: Lorenzo Cortez M.D. Date of Service: 02/27/25 Procedure(s): MR ang io head wo con Accession Number(s): [id number] cc: Lorenzo Cortez M.D. [place] [address] Patient Name: SCAR JEFFREY MRN: [id number] date: 1980 Sex: F Assigned Patient Location: MRI Current Patient Location: LAB Accession/Order Numb er: [id number] Exam Date: 02/27/2025 15:34 Report Date: 02/27/2025 15:42 At the request of: LORENZO CORTEZ MD Procedure: MR angio head wo con MR angio head wo con 02/27/2025 9:33 AM SIGN OF SYMPTOMS: amaurosis fugax both eyes PROTOCOL: Axial 3-D xpry-fr-zaulkh MRA of the brain without contrast including 3-D reconstructions COMPARISON: None. FINDINGS: The superior cerebel lar arteries, posterior inferior cerebellar arteries, and the basilar artery a re within normal limits. The posterior cerebral arteries are unremarkable. The intracranial segments of the internal carotid arteries are within normal limits. There are normal anterior and middle cerebral arteries. Anterior communicating artery is patent. Posterior communicating arteries are hypoplastic bilatera lly which is a normal variant.. The deep venous system and dural venous systems appear to be patent. MR/MR angio head wo con IMPRESSION: No focal stenosis, occlusion, or aneurysmal dilatation. Impression dictated by: Jim Rico M.D. 02/27/2025 3:42 PM Dictation Location: [place] [address] Electronically authenticated by: [id number] Y Date: 02/27/2025 15:42 Dictated By: Jmi Rico M.D. Signed By: 02/27/25 1545 DD/ 1542 TD/TT: Associate Broker: MR angio neck wo con (Not ye t reviewed by provider) Interpretation: Performing Lab: Notes/Report: Source Facility: [place] [address] Magnetic Resonance Report Signed Patient: SCAR JEFFREY MR#: [id number] : 1980 Acct:[id number] Age/Sex: 44 / F ADM Date: 02/27/25 Loc: MRI Attending Dr: Lorenzo Cortez M.D. Ordering Physician: Lorenzo Cortez M.D. Date of Service: 02/27/25 Procedure(s): MR angio neck wo con Accession Number(s): [id number] cc: Lorenzo Cortez M.D. [place] [address] Patient Name: SCAR JEFFREY MRN: [id number] date: 1980 Sex: F Assigned Patient Location: MRI Current Patient Location: LAB Accession/Order Number: [id number] Exam Date: 02/27/2025 15:42 Report Date: 02/27/2025 15:44 At the request of: LORENZO CORTEZ MD Procedure: MR angio neck wo con MR angio neck wo con 02/27/2025 9:55 AM SIGNS AND SYMPTOMS: amaurosis fugax both eyes PROTOCOL: 3-D bbbi-bt-iwjudy MRA of the neck with 3-D reconstructions COMPARISON: None FINDINGS: The vertebral arteries are normal in course and caliber up to the skull base. The common and internal carotid arteries are normal in caliber. The carotid bifurcations are within normal limits. MR/MR angio neck wo con IMPRESSION: No focal stenosis, aneurysm dilatation, or occlusion. Impression dictated by: Jim Rico M.D. 02/27/2025 3:44 PM Dictation Location: [place] [address] Electronically authenticated by: [id number] Y Date: 02/27/2025 15:44 Dictated By: Jim Rico M.D. Signed By: 02/27/25 1546 DD/ 1544 TD/TT: Associate Broker: [place] [address] Magnetic Resonance Report Signed Patient: SCAR JEFFREY MR#: [id number] : 1980 Acct:[id number] Age/Sex: 44 / F ADM Date: 02/27/25 Loc: MRI Attending Dr: Gilberto Cortez M.D. Ordering Physician: Lorenzo Cortez M.D. Date of Service: 02/27/25 Procedure(s): MR ang io neck wo con Accession Number(s): [id number] cc: Lorenzo Cortez M.D. [place] [address] Patient Name: SCAR JEFFREY MRN: [id number] date: 1980 Sex: F Assigned Patient Location: MRI Current Patient Location: LAB Accession/Order Numb er: [id number] Exam Date: 02/27/2025 15:42 Report Date: 02/27/2025 15:44 At the request of: LORENZO CORTEZ MD Procedure: MR angio neck wo con MR angio neck wo con 02/27/2025 9:55 AM SIGNS AND SYMPTOMS: amaurosis fugax both eyes PROTOCOL: 3-D udep-sl-udpumi MRA of the neck with 3-D reconstructions COMPARISON: None FINDINGS: The vertebral arteri es are normal in course and caliber up to the skull base. The common and inter nal carotid arteries are normal in caliber. The carotid bifurcations are wit hin normal limits. MR/MR angio neck wo con IMPRESSION: No focal stenosis, aneurysm dilatation, or occlusion. Impression dictated by: Jim Rico M.D. 02/27/2025 3:44 PM Dictation Location: [place] [address] Electronically authenticated by: [id number] Y Date: 02/27/2025 15:44 Dictated By: Jim Rico M.D. Signed By: 02/27/25 1546 DD/ 1544 TD/TT: Associate Broker: CBC AUTO DIFF Reviewed date:04/15/2024 03:18:59 PM Interpretation: Performing Lab: Notes/Report: [facility] , White Blood Count 6.6 4.0-11.0 10 [...] Performing Lab: see note ML - [facility] LB FREE T3 Reviewed date:04/15/2024 03:18:59 PM Interpretation: Performing Lab: Notes/Report: [facility] , Free T3 2.83 2.18-3.98 pg/mL Performing Lab: see note ML - [facility] LB GLYCOHEMOGLOBIN A1C Reviewed date:04/15/2024 03:18:59 PM Interpretation: Performing Lab: Notes/Report: [facility] , Glycohemoglobin A1C 7.4 4.5-6.2 % ADA RECOMMENDED LIMIT 4.0 - 6.0 ADA THERAPEUTIC TARGET < 7.0 ACTION SUGGESTED > 7.0 Estimated Average Glucose 166 Performing Lab: see note ML - [facility] LB IRON Reviewed date:04/15/2024 03:18:59 PM Interpretation: Performing Lab: Notes/Report: [facility] , Iron 45.0 50.0-170.0 ug/dL Performing Lab: see note ML - [facility] LIPID PROFILE Reviewed date:04/15/2024 03:18:59 PM Interpretation: Performing Lab: Notes/Report: [facility] , Triglycerides 173 <=150 mg/dL Cholesterol 148 [...] RISK Performing Lab: see note ML - [facility] LB BNP Reviewed date:04/15/2024 03:18:59 PM Interpretation: Performing Lab: Notes/Report: [facility] , NT Pro B Type Natriuretic Pept 8.0 <=450.0 pg/mL Performing Lab: see note ML - [facility] LB PROF 14(COMP METB) Reviewed date:04/15/2024 03:18:59 PM Interpretation: Performing Lab: Notes/Report: [facility] , Sodium 140 136-145 mmol/L Potassium 3.8 [...] Performing Lab: see note ML - [facility] LB T4 Reviewed date:04/15/2024 03:18:59 PM Interpretation: Performing Lab: Notes/Report: [facility] , T4 Thyroxine 11.20 4.80-13.90 ug/dL Performing Lab: see note ML - [facility] LB TSH Reviewed date:04/15/2024 03:18:59 PM Interpretation: Performing Lab: Notes/Report: [facility] , Thyroid Stimulating Hormone 1.638 0.358-3.740 uIU/mL Performing Lab: see note ML - [facility] Troponin I High Sensitivity Reviewed date:04/15/2024 03:18:59 PM Interpretation: Performing Lab: Notes/Report: [facility] , Troponin I High Sensitivity 5.7 4.0-51.3 pg/mL CUT-OFF POINTS HAVE BEEN ESTABLISHED BASED ON THE FOURTH UNIVERSAL DEFINITION OF MYOCARDIAL INFARCTION. THE UPPER REFERENCE LIMIT (URL) OF TROPONIN, DEFINED THE 99TH PERCENTILE OF cTnI DISTRIBUTION IN A REFERENCE POPULATION, HAS BEEN CONFIRMED THE DECISION THRESHOLD FOR NM DIAGNOSIS. 99TH PERCENTILE = 51.4 PG/ML NOTE: HIGH-SENSITIVITY TROPONIN ASSAY IS NOT INTENDED TO BE USED IN ISOLATION BUT SHOULD BE INTERPRETED IN CONJUNCTION WITH OTHER DIAGNOSTIC AND CLINICAL INFORMATION. Performing Lab: see note ML - [facility] LB US THYROID Reviewed date:06/10/2024 07:19:56 PM Interpretation: Performing Lab: Notes/Report: Source Facility: [facility]-[address] [place] [address] [address] Ultrasound Report Signed Patient: SCAR JEFFREY MR#: [id number] : 1980 Acct:[id number] Age/Sex: 43 / F ADM Date: 06/10/24 Loc: US Attending Dr: Lorenzo Cortez M.D. Ordering Physician: Lorenzo Cortez M.D. Date of Service: 06/10/24 Procedure(s): US thyroid Accession Number(s): [id number] cc: Lorenzo Cortez M.D. [address] [address] Patient Name: SCAR JEFFREY MRN: [id number] date: 1980 Sex: F Assigned Patient Location: US Current Patient Location: US Accession/Order Number: [id number] Exam Date: 06/10/2024 10:00 Report Date: 06/10/2024 13:48 At the request of: LORENZO CORTEZ Procedure: US thyroid EXAMINATION: US thyroid HISTORY: [...] region of patient's palpable abnormality TI-RADS: The [employer] TI-RADS committee's white paper recommendations for thyroid lesions classified as TR4 (moderately suspicious) are listed below: > 1.0 cm. Follow-up ultrasound in 1, 2, 3, and 5 years. > 1.5 cm. FNA. J. Am Jose Eduardo Radiol 2017;14:587-595. Electronically authenticated by: EDNA GOMEZ Date: 06/10/2024 13:48 Dictated By: Edna Gomez M.D. Signed By: 06/10/24 1355 DD/ 1348 TD/TT: Associate Broker: [place] [address] Ultrasound Report Signed Patient: SCAR JEFFREY MR#: [id number] : 1980 Acct:[id number] Age/Sex: 43 / F ADM Date: 06/10/24 Loc: US Attending Dr: Gilberto Cortez M.D. Ordering Physician: Lorenzo Cortez M.D. Date of Service: 06/10/24 Procedure(s): US thyroid Accession Number(s): [id number] cc: Lorenzo Cortez M.D. [place] [address] Patient Name: SCAR JEFFREY MRN: [id number] date: 1980 Sex: F Assigned Patient Location: US Current Patient Location: US Accession/Order Numb er: [id number] Exam Date: 10:00 Report Date: 06/10/2024 13:48 At the request of: LORENZO CORTEZ Procedure: US thyroid EXAMINATION: US thyroid HISTORY: [...] By: Deandre Gomez M.D. Signed By: 06/10/24 7972 DD/ 1348 TD/TT: Associate Broker: CBC AUTO DIFF Reviewed date:08/26/2024 12:23:03 PM Interpretation: Performing Lab: Notes/Report: [facility] , White Blood Count 7.4 4.0-11.0 10 [...] Performing Lab: see note ML - [facility] FREE T3 Reviewed date:08/26/2024 12:44:27 PM Interpretation: Performing Lab: Notes/Report: [facility] , Free T3 2.62 2.18-3.98 pg/mL Performing Lab: see note ML - [facility] GLYCOHEMOGLOBIN A1C Reviewed date:08/26/2024 12:36:47 PM Interpretation: Performing Lab: Notes/Report: [facility] , Glycohemoglobin A1C 8.3 4.5-6.2 % ADA RECOMMENDED LIMIT 4.0 - 6.0 ADA THERAPEUTIC TARGET < 7.0 ACTION SUGGESTED > 7.0 Estimated Average Glucose 192 Performing Lab: see note ML - [facility] INSULIN Reviewed date:08/27/2024 04:03:13 PM Interpretation: Performing Lab: Notes/Report: [facility] , Insulin 263.0 2.6-24.9 uIU/mL Performed at: - [facility] [address] [id number] Front Office Manager: Víctor Edwards PhD, Phone: [phone] Performing Lab: see note - [facility] LB IRON Reviewed date:08/26/2024 12:36:47 PM Interpretation: Performing Lab: Notes/Report: [facility] , Iron 54.0 50.0-170.0 ug/dL Performing Lab: see note ML - [facility] LIPID PROFILE Reviewed date:08/26/2024 12:44:27 PM Interpretation: Performing Lab: Notes/Report: [facility] , Triglycerides 197 <=150 mg/dL Cholesterol 165 [...] Performing Lab: see note ML - [facility] LB PROF 14(COMP METB) Reviewed date:08/26/2024 12:44:27 PM Interpretation: Performing Lab: Notes/Report: [facility] , Sodium 137 136-145 mmol/L Potassium 4.5 [...] 1.1 Performing Lab: see note ML - [facility] LB T4 Reviewed date:08/26/2024 12:44:27 PM Interpretation: Performing Lab: Notes/Report: [facility] , T4 Thyroxine 10.10 4.80-13.90 ug/dL Performing Lab: see note ML - [facility] LB TSH Reviewed date:08/26/2024 12:44:27 PM Interpretation: Performing Lab: Notes/Report: [facility] , Thyroid Stimulating Hormone 2.818 0.358-3.740 uIU/mL Performing Lab: see note ML - [facility] LB VITAMIN D 25 [place] Reviewed date:08/26/2024 12:54:48 PM Interpretation: Performing Lab: Notes/Report: [facility] , Vitamin D 33.1 <20 ng/mL Vit D deficient 20-<30 ng/mL Vit D insufficient 30-100 ng/mL Vit D sufficient >100 ng/mL Potential Toxicity Performing Lab: see note ML - [facility] LB Troponin I High Sensitivity Reviewed date:08/26/2024 12:44:27 PM Interpretation: Performing Lab: Notes/Report: [facility] , Troponin I High Sensitivity 10.2 4.0-51.3 pg/mL CUT-OFF POINTS HAVE BEEN ESTABLISHED BASED ON THE FOURTH UNIVERSAL DEFINITION OF MYOCARDIAL INFARCTION. THE UPPER REFERENCE LIMIT (URL) OF TROPONIN, DEFINED THE 99TH PERCENTILE OF cTnI DISTRIBUTION IN A REFERENCE POPULATION, HAS BEEN CONFIRMED THE DECISION THRESHOLD FOR NM DIAGNOSIS. 99TH PERCENTILE = 51.4 PG/ML NOTE: HIGH-SENSITIVITY TROPONIN ASSAY IS NOT INTENDED TO BE USED IN ISOLATION BUT SHOULD BE INTERPRETED IN CONJUNCTION WITH OTHER DIAGNOSTIC AND CLINICAL INFORMATION. Performing Lab: see note - [facility] LB Occult Blood* Reviewed date:08/26/2024 04:04:23 PM Interpretation: Performing Lab: Notes/Report: [facility] , Occult Blood Positive Performing Lab: see note - [facility] LB CREATININE Reviewed date:09/28/2024 02:34:45 PM Interpretation: Performing Lab: Notes/Report: [facility] , Creatinine 1.13 0.55-1.02 mg/dL Estimated GFR ( Kenna >60 >=60 mL/min/1.73m 2 Estimated GFR (Non- Sherri 52 >=60 mL/min/1.73m 2 Performing Lab: see note - [facility] LB CT soft tissue neck w con Reviewed date:09/29/2024 01:52:06 PM Interpretation: Performing Lab: Notes/Report: Source Facility: [place] [address] [place] [address] CT Scan Report Signed Patient: SCAR JEFFREY MR#: [id number] : 1980 Acct:[id number] Age/Sex: 44 / F ADM Date: 09/27/24 Loc: LAB Attending Dr: Lorenzo Cortez M.D. Ordering Physician: Lorenzo Cortez M.D. Date of Service: 09/27/24 Procedure(s): CT soft tissue neck w con Accession Number(s): [id number] cc: Lorenzo Cortez M.D. [place] [address] Patient Name: SCAR JEFFREY MRN: [id number] date: 1980 Sex: F Assigned Patient Location: LAB Current Patient Location: Accession/Order Number: [id number] Exam Date: 09/27/2024 09:55 Report Date: 09/29/2024 08:05 At the request of: LORENZO CORTEZ Procedure: CT soft tissue neck w con [...] unremarkable. No abnormality of parapharyngeal, retropharyngeal and product safety expert spaces is noted. The parotids, submandibular glands [...] study is noted. Electronically authenticated by: GILBERTO MONTERO Date: 09/29/2024 08:05 Dictated By: Gilberto Montero M.D. Signed By: 09/29/24807 DD/ 4 TD/TT: Associate Broker: [place] [address] CT Scan Report Signed Patient: SCAR JEFFREY MR#: [id number] : 1980 Acct:[id number] Age/Sex: 44 / F ADM Date: 09/27/24 Loc: LAB Attending Dr: Gilberto Cortez M.D. Ordering Physician: Lorenzo Cortez M.D. Date of Service: 09/27/24 Procedure(s): CT sof t tissue neck w con Accession Number(s): [id number] cc: Lorenzo Cortez M.D. [place] [address] [place] [address] Patient Name: SCAR JEFFREY MRN: [facility]:[id number] date: 1980 Sex: F Assigned Patient Location: LAB Current Patient Location: Accession/Order Numb er: [id number] Exam Date: 09/27/2024 09:55 Report Date: 09/29/2024 08:05 At the request of: LORENZO CORTEZ Procedure: CT soft tissue neck w con [...] unremarkable. No abnormality of parapharyngeal, retropharyngeal and product safety expert spaces is noted. The parotids, submandibular glands [...] study is noted. Electronically authenticated by: GILBERTO MONTERO Date: 09/29/2024 08:05 Dictated By: Gilberto Montero M.D. Signed By: 09/29/24807 DD/ 4 TD/TT: Associate Broker: PROF KARINA Mccarty (JAMES DURANT) Reviewed date:10/06/2024 08:25:36 PM Interpretation: Performing Lab: Notes/Report: [facility] , Sodium 137 136-145 mmol/L Potassium 4.2 [...] mg/dL Performing Lab: see note ML - [facility] LB PROTEIN RAND URINE (Not yet reviewed by provider) Interpretation: Performing Lab: Notes/Report: [facility] , Total Protein Urine Random <6.0 <=11.9 mg/dL Performing Lab: see note - [facility] LB MR head/brain wo con (Not ye t reviewed by provider) Interpretation: Performing Lab: Notes/Report: Source Facility: [facility]-[address] [place] [address] [place] [address] Magnetic Resonance Report Signed Patient: SCAR JEFFREY MR#: [id number] : 1980 Acct:[id number] Age/Sex: 44 / F ADM Date: 02/27/25 Loc: MRI Attending Dr: Lorenzo Cortez M.D. Ordering Physician: Lorenzo Cortez M.D. Date of Service: 02/27/25 Procedure(s): MR head/brain wo con Accession Number(s): [id number] cc: Lorenzo Cortez M.D. [place] [address] Patient Name: SCAR JEFFREY MRN: [id number] date: 1980 Sex: F Assigned Patient Location: MRI Current Patient Location: LAB Accession/Order Number: [id number] Exam Date: 02/27/2025 15:28 Report Date: 02/27/2025 15:34 At the request of: LORENZO CORTEZ MD Procedure: MR head/brain wo con MR head/brain wo con 02/27/2025 9:33 AM SIGN AND SYMPTOMS: amaurosis fugax both eyes PROTOCOL: Multiplanar multisequence MR images of the brain without IV contrast COMPARISON: None. FINDINGS: Extra axial spaces: Age appropriate. Hemorrhage: None. Ventricular system: The ventricles are mildly caudal cephalic. Basal cisterns: Within normal limits and not effaced. 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 The septum pellucidum is absent. Midline shift: None.. Cerebellum: Within normal limits. Brainstem: Within normal limits. OTHER: Calvarium: Normal marrow signal. Vascular system: Satisfactory flow voids within the anterior and posterior circulation. Visualized Paranasal sinuses: Within normal limits. Visualized Orbits: Within normal limits. Visualized upper cervical spine: Within normal limits. Sella and skull base: Within normal limits. MR/MR head/brain wo con IMPRESSION: No acute intracranial pathology. 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 Impression dictated by: Jim Rico M.D. 02/27/2025 3:34 PM Dictation Location: [place] [address] Electronically authenticated by: [id number] Y Date: 02/27/2025 15:34 Dictated By: Jim Rico M.D. Signed By: 02/27/25 1537 DD/ 1534 TD/TT: Associate Broker: [place] [address] Magnetic Resonance Report Signed Patient: SCAR JEFFREY MR#: [id number] : 1980 Acct:[id number] Age/Sex: 44 / F ADM Date: 02/27/25 Loc: MRI Attending Dr: Gilberto Cortez M.D. Ordering Physician: Lorenzo Cortez M.D. Date of Service: 02/27/25 Procedure(s): MR head/brain wo con Accession Number(s): [id number] cc: Lorenzo Cortez M.D. [address] [address] Patient Name: SCAR JEFFREY MRN: [id number] date: 1980 Sex: F Assigned Patient Location: MRI Current Patient Location: LAB Accession/Order Numb er: [id number] Exam Date: 02/27/2025 15:28 Report Date: 02/27/2025 15:34 At the request of: LOERNZO CORTEZ MD Procedure: MR head/brain wo con MR head/brain wo con 02/27/2025 9:33 AM SIGN AND SYMPTOMS: amaurosis fugax both eyes PROTOCOL: Multiplana r multisequence MR images of the brain without IV contrast COMPARISON: None. FINDINGS: Extra axial spaces: Age appropriate. Hemorrhage: None. Ventricular system: The ventricles are mildly caudal cephalic. Basal cisterns: With in normal limits and not effaced. 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 The septum pellucidum is absent. Midline shift: None.. Cerebellum: Within normal limits. Brainstem: Within normal limits. OTHER: Calvarium: Normal marrow signal. Vascular system: Satisfactory flow voids within the anterior and posterior circulation. Visualized Paranasal sinuses: Within normal limits. Visualized Orbits: Within normal limits. Visualized upper cervical spine: Within normal limits. Sella and skull base : Within normal limits. MR/MR head/brain wo con IMPRESSION: No acute intracrania l pathology. 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 Impression dictated by: Jim Rico M.D. 02/27/2025 3:34 PM Dictation Location: [place] [address] Electronically authenticated by: [id number] Y Date: 02/27/2025 15:34 Dictated By: Jim Rico M.D. Signed By: 02/27/251536 DD/ 33 TD/TT: Associate Broker: Reason For Referral Reason also possible basal cell Diagnosis 1 Skin tags, multiple acquired (L91.8) Referral Organization [facility] Referring Provider First Name Joe Referring Provider Last Name Diego Referring Provider [facility] tree Referred Provider Kobe Ramesh Referred Provider Specialty General Surg kenyatta Referral Priority Routine Diagnosis 1 Occult blood positiv e stool (R19.5) Referral Organization [facility] Referring Provider First Name Joe Referring Provider Last Name [facility] Provider Kobe Ramesh Referred Provider Specialty General Surg kenyatta Referral Priority Routine Diagnosis 1 Localized swelling, mass and lump, head (R22.0) Referral Organization [facility] Referring Provider First Name Joe Referring Provider Last Name Diego Referring Provider [facility] Referred Provider Shara Healy Referred Provider Specialty [...] 04/18/2024 Not-Taking Vitamin D (Ergocalciferol) 1.25 MG (30188 UT) take 1 capsule by mouth every [...] 500 MG take 1 tablet by [facility] every 12 hours Orally every 12 [...] Notes Problem Gastro-esophageal reflux disease without esophagitis (772881207) Gastro-esophageal reflux disease without esophagitis (K21.9) Active confirmed Problem 572167653 Type 1 diabetes mellitus with diabetic polyneuropathy (E10.42) Active confirmed Problem 328881609 Morbid (severe) obesity due to excess calories (E66.01) Active confirmed Problem Overweight (458932616) Overweight (E66.3) Active confirmed Problem Essential tremor (502718355) Essential tremor (G25.0) Active confirmed Problem 934430013 Age-related nuclear cataract, bilateral (H25.13) Active confirmed Problem Nuclear cataract (03234655) Infantile and juvenile nuclear cataract, unspecified eye (H26.039) Active confirmed Problem 538068716837580 Myopia, bilatera l (H52.13) Active confirmed Problem Astigmatism (42070741) Unspecified astigmatism, bilateral (H52.203) Active confirmed Problem Chronic laryngitis (21693686) Chronic laryngitis (J37.0) Active confirmed Problem 86169087 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 Problem Arthralgia of the upper arm (090137989) Pain in right elbow (M25.521) Active confirmed Problem 35048931 Radiculopathy, cervical region (M54.12) Active confirmed Problem Swelling of head (794043979) Localized swelling, mass and lump, head (R22.0) Active confirmed Problem Closed fracture of upper end of tibia (09668871) Nondisplaced bicondylar fracture of right tibia, initial encounter for closed fracture (S82.144A) Active confirmed Problem Long-term current use of insulin (691139194) 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) Active confirmed Problem Fatigue (12430389) Fatigue (R53.83) Active conf irmed Problem Onychomycosis (703575245) Onychomycosis (B35.1) Active confirmed Problem Senile osteoporosis (01144749) Senile osteoporosis (M81.0) Active confirmed Problem Hypertension (57362689) Hypertension (I10) Active confirmed Problem Carpal tunnel syndrome (36314398) Carpal tunnel syndrome, bilateral (G56.01) Active confirmed Problem Cigarette smoker (63341569) Cigarette smoker (F17.210) Active confirmed Problem Gastroesophageal reflux disease (906253077) GERD (gastroesophageal reflux disease) (K21.9) Active confirmed Problem Seizure (79592767) Seizures (R56.9) Active conf irmed Problem Edema (70926814) Edema (R60.9) Active confirmed Problem Sleep apnea (53237681) Sleep apnea (G47.30) Active confirmed Problem Insomnia (003862816) Insomnia (G47.00) Active confirmed Problem Acid reflux (715162490) Acid reflux (K21.9) Active confirmed Problem Amaurosis fugax of left eye (98169035987857708) Amaurosis fugax of left eye (G45.3) Active confirmed Problem Migraine (39382609) Migraine (G43.909) Active c onfirmed Problem Degeneration of cervical intervertebral disc (02640976) Degenerative disc disease, cervical (M50.30) Active confirmed Problem Foot pain (55136955) Foot pain (M79.673) Active confirmed Problem Pain of right knee region (finding) (501696805580724) Knee pain, right (M25.561) Active confirmed Problem Chronic sinusitis (31154164) Chronic sinusitis (J32.9) Active confirmed Problem Well adult (663772727) Well adult (Z00.00) Active confirmed Problem Family History of Cancer of Colon (Situation) (663322556) Family history of colon cancer (Z80.0) Active confirmed Problem Mass of neck (943378836) Neck mass (R22.1) Active confirmed Problem Tubular adenoma (608298389) Tubular adenoma (D36.9) Active confirmed Problem Diastasis recti (35683042) Diastasis recti (M62.08) Active confirmed Problem Multiple skin tags (549109223) Skin tags, multiple acquired (L91.8) Active confirmed Problem Nevus (8862387499) Nevus (D22.9) Active confirm ed Problem Viral gastroenteritis (940017885) Viral gastroenteritis (A08.4) Active confirmed Problem Hoarse (74761385) Hoarse (R49.0) Active confirm ed Problem Acute urinary tract infection (998142490) Acute UTI (N39.0) Active confirmed Problem Edema (703587639) Fluid retentio n in tissues (R60.9) Active confirmed Problem Mass of head (982022876) Mass of head (R22.0) Active confirmed Problem Lesion of vocal cord (845319378) Lesion of vocal cord (J38.3) Active confirmed Problem 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 (562497622) Diabetic neuropathy associated with type 1 diabetes mellitus (E10.40) Active confirmed Problem Acute embolism a nd thrombosis of superficial vein of left upper extremity (I82.612) Active confirmed Problem 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) (74919036476472250) Type 1 diabetes mellitus with mild nonproliferative diabetic retinopathy without macular edema, bilateral (E10.3293) Active confirmed Problem 32601501099328101 Type 1 diabete s mellitus with stable proliferative diabetic retinopathy, bilateral (E10.3553) Active confirmed Problem 14971174859525997 Type 1 diabete s mellitus with proliferative diabetic retinopathy without macular edema, bilateral (E10.3593) Active confirmed Problem Transient arterial retinal occlusion (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) Amaurosis fugax, 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) Active confirmed Problem Mixed anxiety and depressive disorder (938447882) Anxiety and depression (F41.8) Active confirmed Problem Benign neoplasm of colon (81587015) Hyperplastic polyp of ascending colon (K63.5) Active confirmed Problem 699123382 Abnormal finding s on diagnostic imaging of other specified body structures (R93.89) Active confirmed Problem COVID-19 (321056422) COVID-19 (U07.1) Active confirmed Problem Acute Laryngitis (0439197) Acute laryngitis, without mention of obstruction (J04.0) [...] N/A Encounters Encounter Location Date Provider Diagnosis [facility] [address] [place] [address] 10/14/2024 [facility] [address] [place] [facility] [place] [address] 12/04/2024 [facility] [address] [place] [address] 01/05/2025 [facility] [address] [place] [facility] [place] [address] 01/26/2025 [facility] [address] [place] [address] 02/25/2025 Joe Hoy Fatigue R53.83 ; Screening for colon cancer Z12.11 ; Senile osteoporosis M81.0 and Screening for breast cancer Z12.31 [facility] [address] [facility] [place] [place] [facility] [address] 08/26/2024 Joe Hoy [facility] [address] [place] [facility] [address] 08/26/2024 Joe Hoy Occult blood positiv e stool R19.5 and Diarrhea R19.7 [facility] [address] [place] [facility] [address] 09/08/2024 Joe Hoy Lymph nodes enlarged R59.9 [facility] [address] [facility] [facility] [place] [facility] [address] 09/28/2024 Joe Hoy Dehydration E86.0 [facility] [address] [facility] [place] [facility] [address] 09/29/2024 Joe Hoy Localized swelling, mass and lump, head R22.0 [facility] [address] [facility] [facility] [place] [facility] [address] 10/10/2024 Joe Hoy Hypertension I10 [facility] [address] [facility] [place] [facility] [place] [address] 06/10/[address] [facility] [address] [place] [address] 06/12/[address] [facility] [address] [facility] [address] 06/16/[address] [facility] [address] [facility] [place] [address] 06/20/2024 [address] Hypertension I10 [facility] [address] [place] [address] 08/20/2024 Joe Hoy Hypertension I10 [facility] [address] [facility] [place] [address] 08/20/2024 Joe Hoy [facility] [address] [facility] [place] [place] [address] 04/15/[address] [facility] [address] [place] [facility] [place] [address] 04/18/2024 Joe Hoy Hypertension I10 [facility] [address] [facility] [place] [address] 04/21/[address] [facility] [address] [place] [facility] [place] [place] [address] 05/26/2024 Joe Hoy [facility] [address] [facility] [place] [address] 06/02/2024 Joe Hoy [facility] [address] [facility] [place] [place] [address] 02/09/2025 Joe Hoy Morbid (severe) obes ity due to excess calories E66.01 ; 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, bilateral E10.3593 ; Acute bronchitis, unspecified organism J20.9 ; Amaurosis fugax of left eye G45.3 and Amaurosis fugax, both eyes G45.3 [facility] ([facility]) [address] [place] [address] [place] [address] 04/10/2024 Mer Agudelo Type 1 diabetes mellitus with diabetic polyneuropathy E10.42 [facility] [address] [place] [address] 02/25/2025 Joe Hoy Encounter for Medica re annual wellness exam Z00.00 [facility] [address] [facility] [place] [place] [address] 04/15/2024 Joe Hoy Hypertension I10 [facility] [address] [place] [address] 07/18/2024 Joe Hoy Seizures R56.9 and T ype 1 diabetes mellitus with mild nonproliferative diabetic retinopathy without macular edema, bilateral E10.3293 [facility] [address] [place] [address] 02/25/2025 Joe Hoy Well adult Z00.00 [facility] [address] [place] [address] 05/23/2024 Joe Hoy Skin tags, multiple acquired L91.8 ; Nevus D22.9 and Acute UTI N39.0 [facility] [address] [place] [address] 08/26/2024 Joe Cortez Morbid (severe) obes ity due [...] vaporizer to help keep the drainage moist. Gwgp-oxt-obsnmwb Nasal Saline may help the stuffy and runny nose. Use Ibuprofen and or Tylenol as needed for fever, chills, body aches or pain. Children 5 years old should not be given cjke-zau-sdkiloe cough and cold medications such as guaifenesin and dextromethorphan. If you're over age 5, you may try ofmp-cxv-muqwedm cold medications such as guaifenesin and dextromethorphan, [...] 08/26/2024 IRON, TOTAL 04/15/2024 LIPID PANEL (CHOL/TRIG/HDL/LDL) 08/26/20 24 LIPID PANEL [...] GLYCOHEMOGLOBIN A1C 02/25/2025 PROF 14(COMP METB) 02/25/2025 PROTEIN RAND URINE 02/27/2025 SED RATE WESTERGREN 02/09/2025 XR CSPINE MIN 4 VIEWS 12/28/2022 XR DEXA BONE DENSITY 02/25/2025 XR FOOT RT MIN 3 VIEWS 11/02/2023 THYROID PANEL (T4/TSH/FREE T3) 4 THYROID PANEL (T4/TSH/FREE T3) 4 THYROID PANEL (T4/TSH/FREE T3) 5 Holter Monitor - 3 days up to 14 days MG MAMM DIAGNOSTIC 3D JOSELITO CAD 10/24/2023 MR head/brain wo con 02/27/2025 BI MAMMOGRAM SCREENING TOMOSYNTHESIS JOSELITO ATERAL 02/25/2025 MR BRAIN WO CONTRAST 02/09/2025 Vitamin D 02/25/2025 MR angio head wo con 02/09/2025 MR angio neck wo con 02/09/[address] w/contrast * 09/08/2024 Future Test Test Name Order Date BMP w/GFR 10/06/2024 Next Appt Details Provider Name:Joe Cortez, 09:45:00 AM, [address], [place], [place], [address], Insurance Providers Payer Name Payer Address Payer Phone Subscriber Number Group Number Insured Name Patient Relationship to Insured Coverage Start Date Coverage End Date [employer] MEDICARE ADV PLAN [address] [address] [place] [address] [id number] Scar Su Self - patient is the insured 0 MEDICAID [facility] 2ND INS [address] [place], [place] [id number] Scar Su Self - patient is the [...] J37.0 Gastro-esophageal reflux disease without esophagitis K21.9 custodial (current) use of insulin Z79.4 Mass of [...] F17.210 Seizures R56.9 Surgical History Surgery Date(Month/Year) Gallbladder Right Carpal Tunnel Left Rotator Cuff Total Hysterecomy x2 Hospitalization History Reason Date(Month/Year) see anca
--- OUTSIDE RECORDS SUMMARY | 2025-02-28 09:05 | XMS_ITS | Clinical Summary ---
Author Organization [employer] Address [id number] [address] [place] [address] Care Team Providers Care Qc Manager Name Role Phone George Cortez MD Primary Care Provider [phone] Medications lisinopril-hydr oCHLOROthiazide (PRINZIDE,ZESTO RETIC) 20-25 mg [...] file Insurance MEDICARE MEDICAID [place] Care Teams Qc Manager Relationship Specialty Start Date End Date George Cortez MD PCP - General Family Medicine 04/09/19
[2025-02-28 10:00] LABS: Free T3 2.66 pg/mL (2.18-3.98); Thyroid Stimulating Hormone 2.964 uIU/mL (0.358-3.740)
== END 2025-02-28 09:04 | disposition home or self-care (01) ==
LOC: LAB 09:03
PROVIDERS: PCP Family Medicine; Visit Provider Family Medicine
DX: R53.83 Other fatigue (principal); Z12.11 Encounter for screening for malignant neoplasm of colon; M81.0 Age-related osteoporosis without current pathological fracture
CPT/HCPCS: 36415; 82306; 84436; 84443; 84481

== ENCOUNTER 2025-03-12 08:37 | Outpatient (OUT) | payer MEDICARE, MEDICAID, SELFPAY ==
--- OUTSIDE RECORDS SUMMARY | 2025-02-25 07:15 | XMS_ITS ---
Author Organization [facility] in [place] Address [address] [place] [address] Care Team Providers Care Rubber Goods Supervisor Name Role Phone Joe Cortez Primary Care Provider [phone] Allergies Allergen (clinical drug ingredient) Drug/Non Drug [...] Active Results Component Value Reference Range Notes PROF 14(COMP METB) Reviewed date:02/28/2025 01:37:12 PM Interpretation: Performing Lab: Notes/Report: [facility] , Sodium 134 136-145 mmol/L Potassium 4.7 3.5-5.1 mmol/L Chloride 96 98-107 mmol/L Carbon Dioxide 28.7 21.0-32.0 mmol/L Anion Gap 14.0 Glucose 354 74-106 mg/dL Blood Urea Nitrogen 14.0 7.0-18.0 mg/dL Creatinine 1.08 0.55-1.02 mg/dL Estimated GFR ( Kenna >60 >=60 mL/mi n/1.73m 2 Estimated GFR (Non- Sherri 55 >=60 mL/mi n/1.73m 2 BUN Creatinine Ratio 13.0 Calcium 9.5 8.5-10.1 mg/dL Bilirubin Total 0.5 0.2-1.0 mg/dL Aspartate Amino Transferase 24 15-37 U/L Alanine Aminotransferase 45 14-59 U/L Alkaline Phosphatase 137 46-116 U/L Total Protein 7.3 6.4-8.2 g/dL Albumin Level 3.9 3.4-5.0 g/dL Globulin 3.4 Albumin Globulin Ratio 1.1 Performing Lab: see note ML - [facility] LB REASON FOR VISIT yearly check up Medications Medication SIG (Take, Route, Frequency, Duration) Notes Start Date End Date Status Furosemide 80 MG TAKE 1 TABLET EVERY MORNING for 90 Active levoFLOXacin 500 MG 1 tablet Orally Once a day for 10 day(s) 02/09/2025 Active levETIRAcetam 500 MG take 1 tablet by ak ut every 12 hours Orally every 12 [...] 04/18/2024 Not-Taking Vitamin D (Ergocalciferol) 1.25 MG (21086 UT) take 1 capsule by mouth every [...] you last smoked? 5-10 years Vital Signs Blood pressure systolic 128 mm Hg 02/26/20 25 Blood pressure diastolic 54 mm Hg 025 Height 66 in 02/25/2025 Weight 245 lbs 02/25/2025 BMI 39.54 kg/m2 02/25/2025 Encounters Encounter Location Date Provider Diagnosis [facility] [address] [place] [address] 02/25/2025 Joe Cortez Well adult Z00.0 0 [...] RANDOM URINE PROTEIN 02/25/2025 GLYCOHEMOGLOBIN A1C 02/25/2025 Next Appt Details Provider Name:Joe Cortez, 09:45:00 AM, [address] [place], [address], Progress Notes * Scar JEFFREY MDOB:1980 (44 yo F)Acc No.[id number]:02/25/2025 Progress Note Patient: Scar FLOWERS Katelynn Provider: Brice Cortez ([facility])MD :1980 A ge:44 Y S ex:Female Date:02/25/2025 Address:formerly [facility] [address] [facility] [phone] Check In:11:03 AM ESTCheck O ut:11:31 AM EST Subjective: * Chief Complaints: * Y early check up * HPI: G eneral: COPd - Not doing well - stil with sig dyspna just even 10-12 feet can feel it - using inhaler - needing to usine inhaler Q 4 horus disucsed weight - not losing - reviewed labs sugars not controlle - do ing as well as canwith diet. * ROS: E ENT: hearing changes d enies. v isual changes d enies.�non-healing mouth sores d enies. s wollen glands or neck lumps d enies. h oarseness d enies. s ore throat d enies. d ifficulty swallowing d enies. n ose bleeds d enies. n lauren congestion d enies. e ar ache d enies. e ar discharge�denies. r inging in ears d enies. l ight sensitivity d enies. e ye pain d enies. b lurring d enies. e ye irritation d enies. d ouble vision d enies.�vision loss d enies. G eneral/Constitutional: Sweats: D enies. F atigue d enies. S leep problems d enies. A norexia d enies. M alaise d enies. W eight loss d enies.�Fatigue or Weakness d enies. F ever or [...] frequent cough d enies. C oughing up blood�denies. D ifficulty breathing d enies. P roductive cough d enies. S noring�denies. S hortness of breath that awakens from [...] enies. S wollen joints d enies. * Active Problem List R22.0 Localized swelling, mass and lump, head Modified On:12/28/2022 Status:confirmed S82.144A Nondisplaced bicondy lar fracture of right tibia, initial encounter for closed fracture Modified On:12/28/2022 Status:confirmed Z79.4 prison (current) use of insulin Modified On:12/28/2022 Status:confirmed R53.83 Fatigue Modified On:01/26/2023 Status:confirmed I10 Hypertension Modified On:02/26/2023 Status:confirmed G56.01 Carpal tunnel syndro me, bilateral Modified On:12/28/2022 Status:confirmed F17.210 Cigarette smoker Modified On:12/28/2022 Status:confirmed K21.9 GERD (gastroesophage al reflux disease) Modified On:12/28/2022 Status:confirmed R56.9 Seizures Modified On:12/28/2022U Status:confirmed R60.9 Edema Modified On:12/28/2022U Status:confirmed G47.00 Insomnia Modified On:12/28/2022 Status:confirmed K21.9 Acid reflux Modified On:12/28/2022 Status:confirmed G43.909 Migraine Modified On:12/28/2022U Status:confirmed M50.30 Degenerative disc di sease, cervical Modified On:12/28/2022U Status:confirmed M25.561 Knee pain, right Modified On:12/28/2022 Status:confirmed Z80.0 Family history of co kirti cancer Modified On:12/28/2022 Status:confirmed M62.08 Diastasis recti Modified On:12/28/2022 Status:confirmed A08.4 Viral gastroenteriti s Modified On:12/28/2022 Status:confirmed R49.0 Hoarse Modified On:12/28/2022 Status:confirmed R60.9 Fluid retention in t issues Modified On:12/28/2022 Status:confirmed R22.0 Mass of head Modified On:12/28/2022 Status:confirmed J38.3 Lesion of vocal cord Modified On:12/28/2022 Status:confirmed E10.40 Diabetic neuropathy associated with type [...] Status:confirmed H25.13 Age-related nuclear cataract, bilateral Modified On:02/22/2023 Status:confirmed H52.13 Myopia, bilateral Modified On:02/22/2023 Status:confirmed B35.1 Onychomycosis Modified On:02/26/2023 Status:confirmed E10.3553 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, bilateral Modified On:03/08/2023 Status:confirmed 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 Modified On:03/15/2023 Status:confirmed Z00.00 Well adult Modified On:08/15/2023 Status:confirmed M79.673 Foot pain Modified On:11/05/2023 Status:confirmed R22.1 Neck mass Modified On:11/26/2023U Status:confirmed G47.30 Sleep apnea Modified On:11/26/2023U Status:confirmed J32.9 Chronic sinusitis Modified On:11/26/2023 Status:confirmed L91.8 Skin tags, multiple acquired Modified On:05/23/2024 Status:confirmed D22.9 Nevus Modified On:05/23/2024 Status:confirmed N39.0 Acute UTI Modified On:05/23/2024 Status:confirmed K63.5 Hyperplastic polyp o f ascending colon Modified On:08/28/2024U Status:confirmed D36.9 Tubular adenoma Modified On:08/28/2024/U Status:confirmed G45.3 Amaurosis fugax of l eft eye Modified On:02/09/2025/U Status:confirmed G45.3 Amaurosis fugax, bot h eyes Modified On:02/09/2025/U Status:confirmed M81.0 Senile osteoporosis Modified On:02/25/2025/U Status:confirmed * Medical History: * Surgical History: [...] long has it been since you last smoked?�5-10 years * Medications: T akingAdvair HFA(Fluticasone-Salmeterol) 230-21 MCG/ACT Aerosol 2 puffs Inhalation Twice a day Albuterol Sulfate HFA 108 (90 Base) MCG/ACT Aerosol Solution INHALE 2 PUFFS EVERY 4 TO 6 HOURS NEEDED Aspirin 81(Aspirin) 81 MG Tablet Delayed Release 1 tablet Orally Once a day buPROPion HCl ER (XL) 300 MG Tablet Extended Release 24 Hour take 1 tablet by mouth every morning Citalopram Hydrobromide 40 MG Tablet 1 tablet Orally Once a day Famotidine 20 MG Tablet TAKE 1 TABLET TWICE DAILY Furosemide 80 MG Tablet TAKE 1 TABLET EVERY MORNING Gvoke HypoPen HumuLIN R U-500 (CONCENTRATED)(Insulin Regular Human (Conc)) 500 UNIT/ML Solution VIA INSULIN PUMP Subcutaneous levETIRAcetam 500 MG Tablet take 1 tablet by mouth every 12 hours Orally every 12 hrs levoFLOXacin 500 MG Tablet 1 tablet Orally Once a day Levothyroxine Sodium 100 MCG Tablet TAKE 1 TABLET EVERY DAY LORazepam 1 MG Tablet 1 Oral BID , Notes to Pharmacist: F41.9Losartan Potassium 100 MG Tablet TAKE 1 TABLET EVERY DAY Orally Once a day metFORMIN HCl 1000 MG Tablet 1 tablet with a meal Orally bid Omeprazole 40 MG Capsule Delayed Release TAKE 1 CAPSULE EVERY DAY Plavix(Clopidogrel Bisulfate) 75 MG Tablet 1 tablet Orally Once a day Potassium Chloride ER 10 MEQ Capsule Extended Release TAKE 1 CAPSULE TWICE DAILY Pyridium(Phenazopyridine HCl) 200 MG Tablet 1 tablet after meals Orally Three times a day risperiDONE 4 MG Tablet TAKE 1 TABLET AT BEDTIME Simvastatin 20 MG Tablet TAKE 1 TABLET EVERY DAY Vitamin D (Ergocalciferol) 1.25 MG (80735 UT) Capsule take 1 capsule by mouth every week Taking Advair HFA(Fluticasone-Salmeterol) 230-21 MCG/ACT Aerosol 2 puffs Inhalation Twice a day Taking Albuterol Sulfate HFA 108 (90 Base) MCG/ACT Aerosol Solution INHALE 2 PUFFS EVERY 4 TO 6 HOURS NEEDED Taking Aspirin 81(Aspirin) 81 MG Tablet Delayed Release 1 tablet Orally Once a day Taking buPROPion HCl ER (XL) 300 MG Tablet Extended Release 24 Hour take 1 tablet by mouth every morning Taking Citalopram Hydrobromide 40 MG Tablet 1 tablet Orally Once a day Taking Famotidine 20 MG Tablet TAKE 1 TABLET TWICE DAILY Taking Furosemide 80 MG Tablet TAKE 1 TABLET EVERY MORNING Taking Gvoke HypoPen Taking HumuLIN R U-500 (CONCENTRATED)(Insulin Regular Human (Conc)) 500 UNIT/ML Solution VIA INSULIN PUMP Subcutaneous Taking levETIRAcetam 500 MG Tablet take 1 tablet by mouth every 12 hours Orally every 12 hrs Taking levoFLOXacin 500 MG Tablet 1 tablet Orally Once a day Taking Levothyroxine Sodium 100 MCG Tablet TAKE 1 TABLET EVERY DAY Taking LORazepam 1 MG Tablet 1 Oral BID , Notes to Pharmacist: F41.9Taking Losartan Potassium 100 MG Tablet TAKE 1 TABLET EVERY DAY Orally Once a day Taking metFORMIN HCl 1000 MG Tablet 1 tablet with a meal Orally bid Taking Omeprazole 40 MG Capsule Delayed Release TAKE 1 CAPSULE EVERY DAY Taking Plavix(Clopidogrel Bisulfate) 75 MG Tablet 1 tablet Orally Once a day Taking Potassium Chloride ER 10 MEQ Capsule Extended Release TAKE 1 CAPSULE TWICE DAILY Taking Pyridium(Phenazopyridine HCl) 200 MG Tablet 1 tablet after meals Orally Three times a day Taking risperiDONE 4 MG Tablet TAKE 1 TABLET AT BEDTIME Taking Simvastatin 20 MG Tablet TAKE 1 TABLET EVERY DAY Taking Vitamin D (Ergocalciferol) 1.25 MG (11489 UT) Capsule take 1 capsule by mouth every week Not-Taking/PRNamLODIPine Besylate 10 MG Tablet 1 tablet Orally Once a day Ferrous Sulfate 325 (65 Fe) MG Tablet 1 tablet Orally twice daily Medication List reviewed and reconciled with the patientNot-Taking/PRN amLODIPine Besylate 10 MG Tablet 1 tablet Orally Once a day Not-Taking/PRN Ferrous Sulfate 325 (65 Fe) MG Tablet 1 tablet Orally twice daily Medication List reviewed and reconciled with the patient * Allergies: P enicillin: hivesopioids: throat swelling/vomitingDepakote: chest tightness/throat swellingTrileptal: chest tightness/throat swellingLaMICtal: rashMorphine and Related: vomitingno[Allergies Verified] Objective: * Vitals: W t:245lbs, Ht: 66 [...] NOSE: n o deformity, discharge, inflammation, or lesions.� MOUTH: m ucous membranes moist, normal oropharynx and posterior pharynx without lesions or exudates, tongue normal, dentition normal. NECK: n maria del carmen supple, no masses or palpable cervical nodes, trachea midline, thyroid without nodules, masses, tenderness, or enlargement. CHEST: n o chest wall deformity, no chest wall tenderness.� LUNGS: n ormal respiratory effort and clear [...] - Z00.00 (Primary) Plan: * Treatment: * Labs: * L ab: PROF 14(COMP METB) (Collection Date & Time - 02/27/2025 10:11 AM) * Procedure Codes: * Preventive Medicine: Screenings/Counseling: B DC ACTION PLAN Above Normal BMI Follow-up D ietary management education, guidance, and counseling * * Sign off status: Completed Visit Status: C HK (Check Out) true * Provider: Brice Cortez ([facility])MD Date: 0 02/25/2025 Generated for Printi ng/Faxing/eTransmitting on: 0 03/12/2025 08:39 AM EDT History and Physical Notes * [...]
--- OUTSIDE RECORDS SUMMARY | 2025-02-28 09:36 | XMS_ITS ---
Author Organization [facility] in [place] Address [address] [place] [address] Care Team Providers Care Model Maker Fiberglass Name Role Phone TimpriyankJoe Primary Care Provider REASON FOR VISIT lab results Encounters Encounter Location Date Provider Diagnosis [facility] [address] [place] [address] 02/28/2025 Joe Cortez Plan Of Treatment Next Appt Details Provider Name:Joe Cortez, 09:45:00 AM, [address] [place], [address], Progress Notes * Scar JEFFREY MDOB:1980 (44 yo F)Acc No.[id number]:02/28/2025 Patient: Scar FLOWERS :1980 A ge:44 Y S ex:Female Address:[address] [place] [address], [address] * true * Date: Generated for Svitlana sanches/Marissa/eTransmitting on: 03/12/2025 08:38 AM EDT
--- OUTSIDE RECORDS SUMMARY | 2025-03-10 06:50 | XMS_ITS ---
Author Organization [facility] [place] Address [address] [place] [address] Care Team Providers Care Data Management Consultant Name Role Phone DiegoJoe Primary Care Provider REASON FOR VISIT Refill Medications Medication SIG (Take, Route, Frequency, Duration) Notes Start Date End Date Status Plavix 75 MG 1 tablet Orally Once a day for 90 days 02/09/2025 Active Vitamin D (Ergocalciferol) 1.25 MG (69728 UT) take 1 capsule by mouth every week for 84 Active Encounters Encounter Location Date Provider Diagnosis [facility] [address] [place] [address] 03/10/2025 Joe Dumontpriyank Morbid (severe) obesity due to excess calories E66.01 Assessments Encounter Date Diagnosis (ICD Code) Assessment Notes Treatment Notes Treatment Clinical Notes Section Notes 03/10/2025 Morbid (severe) obesity due to excess calories (ICD-10 - E66.01) Plan Of Treatment Medication Medication Name Sig Start Date Stop Date Notes Plavix 75 MG 1 tablet Orally Once a day for 90 days 02/09/2025 Vitamin D (Ergocalciferol) 1 .25 MG (50781 UT) take 1 capsule by mouth every week for 84 Next Appt Details Provider Name:Joe Cortez, 09:45:00 AM, [address] [place], [address], Progress Notes * Scar JEFFREY MDOB:1980 (44 yo F)Acc No.[id number]:03/10/2025 Patient: Scar FLOWERS :1980 A ge:44 Y S ex:Female Address:[facility]/[address], [address] * Refills Refill Plavix Tablet, 75 MG, Orally, 90 Tablet, 1 tablet, Once a day, 90 days, Refills=3 Refill Vitamin D (Ergocalciferol) Capsule, 1.25 MG (17576 UT), 12 Capsule, take 1 capsule by mouth every week, 84, Refills=3 * true * Date: Generated for Svitlana sanches/Marissa/Yuriitting on: 0 03/12/2025 08:39 AM EDT
--- OUTSIDE RECORDS SUMMARY | 2025-03-12 08:39 | XMS_ITS | Clinical Summary ---
Author Organization [facility] Address [address] [place] [address] Care Team Providers Care Superintendent Circus Name Role Phone George Cortez MD Primary Care Provider [phone] Allergies Active Allergy Reactions Criticality Noted Date [...] mouth at bedtime Active Vitamin D, Ergocalciferol, 84456 units capsule Take 1 tablet by mouth [...] 1 10/30/19 25 025 Active Continuous Glucose Entry Level Project Engineer (Dexcom G7 Entry Level Project Engineer) deviceIndications :Type 1 diabetes mellitus with hyperglycemia (HCC) 1 kit continuously 1 each 1 10/31/19 25 Active Continuous Glucose Sensor (Dexcom G7 Sensor) miscIndications:T ype 1 diabetes mellitus with hyperglycemia (HCC) 1 kit Every 10 (ten) days 9 each 1 10/31/19 25 Active Insulin Disposable Pump (Omnipod 5 [id number] Intro Gen 5) kitIndications:Ty pe 1 diabetes [...] 25 Active Insulin Disposable Pump (Omnipod 5 [id number] Pods Gen 5) miscIndications:T ype 1 diabetes mellitus with hyperglycemia (HCC) Inject 1 Bar under the skin every other day 45 each 1 01/31/20 25 025 Active Active Problems Problem Noted Date Diagnosed Date Abdominal bloating 01/17/2024 Anxiety 01/17/2024 Benign neoplasm of transverse colon 01/17/2024 Diastasis of rectus abdominis 01/17/2024 Disorder of intervertebral disc of cervical spin e 01/17/2024 Epidermoid cyst of face 01/17/2024 Epigastric pain 01/17/2024 Gastroesophageal reflux disease 01/17/2024 Family history of malignant neoplasm of colon Hypertension 01/17/2024 Irritable bowel syndrome 01/17/2024 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 01/17/2024 Migraine headache [...] 10:20 AM EDT Office Visit [facility] [address] [place] [address] Zay Montiel MD 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); Vitamin D deficiency; Encounter for dietary consultation; Insulin long-term use (HCC); Microalbuminuria; Insulin pump in place; Encounter for fitting or adjustment of insulin pump; Primary hypertension ; Type 1 diabetes mellitus with hyperglycemia (HCC) 01/30/2025 Bamboo flowsheet [facility] [address] [place] [address] Zay Montiel MD 01/15/2025 Telephone [facility] [address] [place] [address] Zay Montiel MD Med Refill 01/12/2025 Refill [facility] [address] [place] [address] Zay Montiel MD Type 1 diabetes mellitus with hyperglycemia (HCC) 01/12/2025 Refill [facility] [address] [place] [address] Zay Montiel MD 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); Type 1 diabetes mellitus with hyperglycemia (HCC) 01/12/2025 Refill [facility] [address] [place] [address] Helena Short LPN Type 1 diabetes mellitus with hyperglycemia (HCC) 12/30/2024 Refill [facility] [address] [place] [address] Zay Montiel MD Type 1 diabetes mellitus [...] Visit [facility] [address] [place] [address] Zay Montiel MD [address] [place] [address] Procedures Procedure Name Priority Date/Time Associated Diagnosis [...] Final Result from Last 3 Months Insurance [employer] MEDICARE ADVANTAGE MEDICAID [place] Care Teams Superintendent Circus Relationship Specialty Start Date End Date George Cortez MD PCP - General Family Medicine 12/18/23
--- OUTSIDE RECORDS SUMMARY | 2025-03-12 08:39 | XMS_ITS | Encounter Summary ---
Author Organization [facility] Address [address] [place] [address] Care Team Providers Care Supervisor Car Installations Name Role Phone George Cortez MD Primary Care Provider [phone] Encounter Details Date Type Department Care Team (Late st Contact Info) Description 01/17/2024 Clinisync Result Encounter [facility] Unsolicited Shara Healy MD [address] [facility] [address] [place] [address] Social History Tobacco Use Types [...] [facility] [address] [place] [address] Zay Montiel MD [address] [place] [address] documented as of this encounter Procedures Procedure Name Priority Date/Time Associated Diagnosis Comments CT SOFT TISSUE NECK W IV CONTRAST 01/17/2024 10:05 AM EDT documented in this encounter Results * CT soft tissue neck w IV contrast (01/17/2024 10:05 AM EDT) Anatomical Region Laterality Modality Head, Neck Computed Tomogra phy 01/17/2024 10:0 5 AM EDT Narrative 01/17/2024 10:07 AM EDT [address] [address] [address] Scan Report Signed Patient: SCAR JEFFREY MR#: [id number] : 1980 Acct:[id number] Age/Sex: 43 / F ADM Date: 01/17/24 Loc: LAB Attending Dr: Shara Healy M.D. Ordering Physician: Shaar Healy M.D. Date of Service: 01/17/24 Procedure(s): CT soft tissue neck w con Accession Number(s): [id number] cc: George Cortez M.D. [place] [id number] Patient Name: SCAR JEFFREY MRN: [id number] date: 1980 Sex: F Assigned Patient Location: LAB Current Patient Location: LAB Accession/Order Number: [id number] Exam Date: 01/17/2024 09:25 Report Date: 01/17/2024 [...] Signed By: 01/17/24 1007 DD/ 1005 TD/TT: Minister: Procedure Note Radiology, Radiologist, MD - 01/17/2024 [place] [address] CT Scan Report Signed Patient: SCAR JEFFREY MMR#: [id number] : 1980Acct:[id number] Age/Sex: 43 / FADM Date: 01/17/24 Loc: LAB Attending Dr: Shara Healy M.D. Ordering Physician: Shara Healy M.D. Date of Service: 01/17/24 Procedure(s): CT soft tissue neck w con Accession Number(s): [id number] cc: George Cortez M.D. [facility] [place] [address] Patient Name: SCAR JEFFREY MRN: [id number] date: 1980 Sex: F Assigned Patient Location: LAB Current Patient Location: LAB Accession/Order Number: [id number] Exam Date: 01/17/2024 09:25 Report Date: 01/17/2024 [...] M.D. Signed By:01/17/24 1007 DD/ 1005 TD/TT: Minister: Shara Healy MD IMG CT PROCEDURES Final Resul t documented in this encounter Visit Diagnoses Not on filedocumented in this encounter Care Teams Supervisor Car Installations Relationship Specialty Start Date End Date George Cortez MD PCP - General Family Medicine 12/18/23 documented as of this encounter
--- OUTSIDE RECORDS SUMMARY | 2025-03-12 08:39 | XMS_ITS | Clinical Summary ---
Author Organization [facility] Address [address] [place] [address] Care Team Providers Care Excavation Laborer Name Role Phone Unavailable Primary Care Provider [...] Years Used Date Smoking Tobacco: Never Assessed [place] Safety & Environment Answer Date Rec orded [...] 2008 HPV/Cotest 2008 Mammogram 2018 Influenza Vaccine (#1) 2025 07/13/2020 Zoster Vaccines (1 of 2) 2028 Colonoscopy [...] on patient's age to complete this topic Insurance MEDICAID [facility] MEDICARE ADVANTAGE
--- OUTSIDE RECORDS SUMMARY | 2025-03-12 08:39 | XMS_ITS | Patient Health Record ---
Author Organization [facility] in Loop Address [address] [place] [address] Care Team Providers Care Therapist Physical Name Role Phone Joe Carlson Primary Care Provider Mer Agudelo Unavailable [phone] Allergies Allergen (clinical drug ingredient) Drug/Non Drug [...] 01:37:12 PM Interpretation: Performing Lab: Notes/Report: [facility] , Sodium 134 136-145 mmol/L Potassium [...] 1.1 Performing Lab: see note ML - [facility] VITAMIN D 25 [place] Reviewed date:08/26/2024 12:54:48 PM Interpretation: Performing Lab: Notes/Report: [facility] , Vitamin D 33.1 <20 ng/mL Vit D deficient 20-<30 ng/mL Vit D insufficient 30-100 ng/mL Vit D sufficient >100 ng/mL Potential Toxicity Performing Lab: see note ML - [facility] LB CREATININE Reviewed date:09/28/2024 02:34:45 PM Interpretation: Performing Lab: Notes/Report: [facility] , Creatinine 1.13 0.55-1.02 mg/dL Estimated GFR ( Kenna >60 >=60 mL/min/1.73m 2 Estimated GFR (Non- Sherri 52 >=60 mL/min/1.73m 2 Performing Lab: see note ML - [facility] VITAMIN D 25 [place] Reviewed date:02/28/2025 01:37:12 PM Interpretation: Performing Lab: Notes/Report: [facility] , Vitamin D 23.2 <20 ng/mL Vit D deficient 20-<30 ng/mL Vit D insufficient 30-100 ng/mL Vit D sufficient >100 ng/mL Potential Toxicity Performing Lab: see note ML - [facility] LB TSH Reviewed date:02/28/2025 01:37:12 PM Interpretation: Performing Lab: Notes/Report: [facility] , Thyroid Stimulating Hormone 2.964 0.358-3.740 uIU/mL Performing Lab: see note ML - [facility] LB T4 Reviewed date:02/28/2025 01:37:12 PM Interpretation: Performing Lab: Notes/Report: [facility] , T4 Thyroxine 8.60 4.80-13.90 ug/dL Performing Lab: see note ML - [facility] FREE T3 Reviewed date:02/28/2025 01:37:12 PM Interpretation: Performing Lab: Notes/Report: [facility] , Free T3 2.66 2.18-3.98 pg/mL Performing Lab: see note ML - [facility] LB MR head/brain wo con Reviewed date:02/28/2025 01:37:12 PM Interpretation: Performing Lab: Notes/Report: Source Facility: [facility]-[address] [place] [address] [place] [address] Magnetic Resonance Report Signed Patient: SCAR JEFFREY MR#: [id number] : 1980 Acct:[id number] Age/Sex: 44 / F ADM Date: 02/27/25 Loc: MRI Attending Dr: Lorenzo Carlson M.D. Ordering Physician: Lorenzo Carlson M.D. Date of Service: 02/27/25 Procedure(s): MR head/brain wo con Accession Number(s): [id number] cc: Lorenzo Carlson M.D. [place] [address] Patient Name: SCAR JEFFREY MRN: [id number] date: 1980 Sex: F Assigned Patient Location: MRI Current Patient Location: LAB Accession/Order Number: [id number] Exam Date: 02/27/2025 15:28 Report Date: 02/27/2025 15:34 At the request of: LORENZO CARLSON MD Procedure: MR head/brain wo con MR [...] Rico M.D. 02/27/2025 3:34 PM Dictation Location: [place] [address] Electronically authenticated by: [id number] Y Date: 02/27/2025 15:34 Dictated By: Jim Rico M.D. Signed By: 02/27/25 1537 DD/ TD/TT: Nursery Laborer: [place] [address] Magnetic Resonance Report Signed Patient: SCAR JEFFREY MR#: [id number] : 1980 Acct:[id number] Age/Sex: 44 / F ADM Date: 02/27/25 Loc: MRI Attending Dr: Gilberto Carlson M.D. Ordering Physician: Lorenzo Carlson M.D. Date of Service: 02/27/25 Procedure(s): MR head/brain wo con Accession Number(s): [id number] cc: Lorenzo Carlson M.D. [place] [address] Patient Name: SCAR JEFFREY MRN: [id number] date: 1980 Sex: F Assigned Patient Location: MRI Current Patient Location: LAB Accession/Order Numb er: [id number] Exam Date: 02/27/2025 15:28 Report Date: 02/27/2025 15:34 At the request of: LORENZO CARLSON MD Procedure: MR head/brain wo con MR [...] Rico M.D. 02/27/2025 3:34 PM Dictation Location: [place] [address] Electronically authenticated by: [id number] Y Date: 02/27/2025 15:34 Dictated By: Jim Rico M.D. Signed By: 02/27/25 1537 DD/ 1534 TD/TT: Nursery Laborer: KRISS RAND URINE Reviewed date:02/28/2025 01:37:12 PM Interpretation: Performing Lab: Notes/Report: [facility] , Total Protein Urine Random <6.0 <=11.9 mg/dL Performing Lab: see note ML - [facility] LB PROF CHEM 8 (BAS METB) Reviewed date:10/06/2024 08:25:36 PM Interpretation: Performing Lab: Notes/Report: [facility] , Sodium 137 136-145 mmol/L Potassium [...] Performing Lab: see note ML - [facility] LB CT soft tissue neck w con Reviewed date:09/29/2024 01:52:06 PM Interpretation: Performing Lab: Notes/Report: Source Facility: [facility]-[address] [place] [address] [place] [address] CT Scan Report Signed Patient: SCAR JEFFREY MR#: [id number] : 1980 Acct:[id number] Age/Sex: 44 / F ADM Date: 09/27/24 Loc: LAB Attending Dr: Lorenzo Carlson M.D. Ordering Physician: Lorenzo Carlson M.D. Date of Service: 09/27/24 Procedure(s): CT soft tissue neck w con Accession Number(s): [id number] cc: Lorenzo Carlson M.D. [place] [address] Patient Name: SCAR JEFFREY MRN: [id number] date: 1980 Sex: F Assigned Patient Location: LAB Current Patient Location: Accession/Order Number: [id number] Exam Date: 09/27/2024 09:55 Report Date: 09/29/2024 [...] unremarkable. No abnormality of parapharyngeal, retropharyngeal and applied mathematician spaces is noted. The parotids, submandibular glands [...] M.D. Signed By: 09/29/24807 DD/ 4 TD/TT: Nursery Laborer: [place] [address] CT Scan Report Signed Patient: SCAR JEFFREY MR#: [id number] : 1980 Acct:[id number] Age/Sex: 44 / F ADM Date: 09/27/24 Loc: LAB Attending Dr: Gilberto Carlson M.D. Ordering Physician: Lorenzo Carlson M.D. Date of Service: 09/27/24 Procedure(s): CT sof t tissue neck w con Accession Number(s): [id number] cc: Lorenzo Carlson M.D. [place] [address] Patient Name: SCAR JEFFREY MRN: [id number] date: 1980 Sex: F Assigned Patient Location: LAB Current Patient Location: Accession/Order Numb er: [id number] Exam Date: 09/27/2024 09:55 Report Date: 09/29/2024 [...] unremarkable. No abnormality of parapharyngeal, retropharyngeal and applied mathematician spaces is noted. The parotids, submandibular glands [...] Salinas M.D. Signed By: 09/29/24 0808 DD/ 0805 TD/TT: Nursery Laborer: Occult Blood* Reviewed date:08/26/2024 04:04:23 PM Interpretation: Performing Lab: Notes/Report: [facility] , Occult Blood Positive Performing Lab: see note ML - [facility] LB Troponin I High Sensitivity Reviewed date:08/26/2024 12:44:27 PM Interpretation: Performing Lab: Notes/Report: [facility] , Troponin I High Sensitivity 10.2 4.0-51.3 pg/mL CUT-OFF POINTS HAVE BEEN ESTABLISHED BASED ON THE FOURTH UNIVERSAL DEFINITION OF MYOCARDIAL INFARCTION. THE UPPER REFERENCE LIMIT (URL) OF TROPONIN, DEFINED THE 99TH PERCENTILE OF cTnI DISTRIBUTION IN A REFERENCE POPULATION, HAS BEEN CONFIRMED THE DECISION THRESHOLD FOR [place] DIAGNOSIS. 99TH PERCENTILE = 51.4 PG/ML NOTE: HIGH-SENSITIVITY TROPONIN ASSAY IS NOT INTENDED TO BE USED IN ISOLATION BUT SHOULD BE INTERPRETED IN CONJUNCTION WITH OTHER DIAGNOSTIC AND CLINICAL INFORMATION. Performing Lab: see note ML - [facility] LB TSH Reviewed date:08/26/2024 12:44:27 PM Interpretation: Performing Lab: Notes/Report: [facility] , Thyroid Stimulating Hormone 2.818 0.358-3.740 uIU/mL Performing Lab: see note - [facility] LB T4 Reviewed date:08/26/2024 12:44:27 PM Interpretation: Performing Lab: Notes/Report: [facility] , T4 Thyroxine 10.10 4.80-13.90 ug/dL Performing Lab: see note - [facility] LB PROF 14(COMP METB) Reviewed date:08/26/2024 12:44:27 PM Interpretation: Performing Lab: Notes/Report: [facility] , Sodium 137 136-145 mmol/L Potassium [...] 1.1 Performing Lab: see note ML - [facility] LB LIPID PROFILE Reviewed date:08/26/2024 12:44:27 PM Interpretation: Performing Lab: Notes/Report: [facility] , Triglycerides 197 <=150 mg/dL Cholesterol [...] >11.0 HIGH RISK Performing Lab: see note - [facility] LB IRON Reviewed date:08/26/2024 12:36:47 PM Interpretation: Performing Lab: Notes/Report: [facility] , Iron 54.0 50.0-170.0 ug/dL Performing Lab: see note ML - [facility] LB INSULIN Reviewed date:08/27/2024 04:03:13 PM Interpretation: Performing Lab: Notes/Report: [facility] , Insulin 263.0 2.6-24.9 uIU/mL Performed at: [facility] [address] [id number] Hydrogen Cell Tender: Víctor Edwards PhD, Phone: [phone] Performing Lab: see note - [facility] LB GLYCOHEMOGLOBIN A1C Reviewed date:08/26/2024 12:36:47 PM Interpretation: Performing Lab: Notes/Report: [facility] , Glycohemoglobin A1C 8.3 4.5-6.2 % ADA RECOMMENDED LIMIT 4.0 - 6.0 ADA THERAPEUTIC TARGET < 7.0 ACTION SUGGESTED > 7.0 Estimated Average Glucose 192 Performing Lab: see note - [facility] FREE T3 Reviewed date:08/26/2024 12:44:27 PM Interpretation: Performing Lab: Notes/Report: [facility] , Free T3 2.62 2.18-3.98 pg/mL Performing Lab: see note ML - [facility] LB CBC AUTO DIFF Reviewed date:08/26/2024 12:23:03 PM Interpretation: Performing Lab: Notes/Report: [facility] , White Blood Count 7.4 4.0-11.0 [...] 3/uL Performing Lab: see note ML - [facility] US THYROID Reviewed date:06/10/2024 07:19:56 PM Interpretation: Performing Lab: Notes/Report: Source Facility: [place] [id number] Ultrasound Report Signed Patient: SCAR JEFFREY MR#: [id number] : 1980 Acct:[id number] Age/Sex: 43 / F ADM Date: 06/10/24 Loc: US Attending Dr: Lorenzo Carlson M.D. Ordering Physician: Lorenzo Carlson M.D. Date of Service: 06/10/24 Procedure(s): US thyroid Accession Number(s): [id number] cc: Lorenzo Carlson M.D. [place] [address] Patient Name: SCAR JEFFREY MRN: [id number] date: 1980 Sex: F Assigned Patient Location: US Current Patient Location: US Accession/Order Number: [id number] Exam Date: 06/10/2024 10:00 Report Date: 06/10/2024 [...] region of patient's palpable abnormality TI-RADS: The [employer] TI-RADS committee's white paper recommendations for thyroid lesions classified as TR4 (moderately suspicious) are listed below: > 1.0 cm. Follow-up ultrasound in 1, 2, 3, and 5 years. > 1.5 cm. FNA. J. Am Jose Eduardo Radiol 2017;14:587-595. Electronically authenticated by: EDNA GOMEZ Date: 06/10/2024 13:48 Dictated By: Edna Gomez M.D. Signed By: 06/10/24 1351 DD/ 1348 TD/TT: Nursery Laborer: [place] [address] Ultrasound Report Signed Patient: SCAR JEFFREY MR#: [id number] : 1980 Acct:[id number] Age/Sex: 43 / F ADM Date: 06/10/24 Loc: US Attending Dr: Gilberto Carlson M.D. Ordering Physician: Lorenzo Carlson M.D. Date of Service: 06/10/24 Procedure(s): US thyroid Accession Number(s): [id number] cc: Lorenzo Carlson M.D. The [place] [id number] Patient Name: SCAR JEFFREY MRN: [id number] date: 1980 Sex: F Assigned Patient Location: US Current Patient Location: US Accession/Order Numb er: [id number] Exam Date: 10:00 Report Date: 06/10/2024 13:48 [...] region of patient's palpable abnormality TI-RADS: The [employer] [employer] TI-RADS committee's white paper recommendations for thyroid lesions classified as TR4 (moderately suspicious) are listed below: > 1.0 cm. Follow-up ultrasound in 1, 2, 3, and 5 years. > 1.5 cm. FNA. J. Am Jose Eduardo Radiol 2017;14:587-595. Electronically authenticated by: EDNA GOMEZ Date: 06/10/2024 13:48 Dictated By: Deandre Gomez M.D. Signed By: 06/10/24 1351 DD/ 1348 TD/TT: Nursery Laborer: Troponin I High Sensitivity Reviewed date:04/15/2024 03:18:59 PM Interpretation: Performing Lab: Notes/Report: [facility] , Troponin I High Sensitivity 5.7 4.0-51.3 pg/mL CUT-OFF POINTS HAVE BEEN ESTABLISHED BASED ON THE FOURTH UNIVERSAL DEFINITION OF MYOCARDIAL INFARCTION. THE UPPER REFERENCE LIMIT (URL) OF TROPONIN, DEFINED THE 99TH PERCENTILE OF cTnI DISTRIBUTION IN A REFERENCE POPULATION, HAS BEEN CONFIRMED THE DECISION THRESHOLD FOR NH DIAGNOSIS. 99TH PERCENTILE = 51.4 PG/ML NOTE: HIGH-SENSITIVITY TROPONIN ASSAY IS NOT INTENDED TO BE USED IN ISOLATION BUT SHOULD BE INTERPRETED IN CONJUNCTION WITH OTHER DIAGNOSTIC AND CLINICAL INFORMATION. Performing Lab: see note ML - [facility] LB TSH Reviewed date:04/15/2024 03:18:59 PM Interpretation: Performing Lab: Notes/Report: [facility] , Thyroid Stimulating Hormone 1.638 0.358-3.740 uIU/mL Performing Lab: see note ML - [facility] LB T4 Reviewed date:04/15/2024 03:18:59 PM Interpretation: Performing Lab: Notes/Report: [facility] , T4 Thyroxine 11.20 4.80-13.90 ug/dL Performing Lab: see note ML - [facility] LB PROF 14(COMP METB) Reviewed date:04/15/2024 03:18:59 PM Interpretation: Performing Lab: Notes/Report: [facility] , Sodium 140 136-145 mmol/L Potassium [...] Performing Lab: see note ML - [facility] LB LIPID PROFILE Reviewed date:04/15/2024 03:18:59 PM Interpretation: Performing Lab: Notes/Report: [facility] , Triglycerides 173 <=150 mg/dL Cholesterol [...] RISK Performing Lab: see note ML - [facility] LB IRON Reviewed date:04/15/2024 03:18:59 PM Interpretation: Performing Lab: Notes/Report: [facility] , Iron 45.0 50.0-170.0 ug/dL Performing Lab: see note ML - [facility] LB GLYCOHEMOGLOBIN A1C Reviewed date:04/15/2024 03:18:59 PM Interpretation: Performing Lab: Notes/Report: [facility] , Glycohemoglobin A1C 7.4 4.5-6.2 % ADA RECOMMENDED LIMIT 4.0 - 6.0 ADA THERAPEUTIC TARGET < 7.0 ACTION SUGGESTED > 7.0 Estimated Average Glucose 166 Performing Lab: see note ML - [facility] LB FREE T3 Reviewed date:04/15/2024 03:18:59 PM Interpretation: Performing Lab: Notes/Report: [facility] , Free T3 2.83 2.18-3.98 pg/mL Performing Lab: see note ML - [facility] LB CBC AUTO DIFF Reviewed date:04/15/2024 03:18:59 PM Interpretation: Performing Lab: Notes/Report: [facility] , White Blood Count 6.6 4.0-11.0 [...] Performing Lab: see note ML - [facility] LB MR angio neck wo con Reviewed date:02/28/2025 01:37:12 PM Interpretation: Performing Lab: Notes/Report: Source Facility: [place] [id number] Magnetic Resonance Report Signed Patient: SCAR JEFFREY MR#: [id number] : 1980 Acct:[id number] Age/Sex: 44 / F ADM Date: 02/27/25 Loc: MRI Attending Dr: Lorenzo Carlson M.D. Ordering Physician: Lorenzo Carlson M.D. Date of Service: 02/27/25 Procedure(s): MR angio neck wo con Accession Number(s): [id number] cc: Lorenzo Carlson M.D. [place] [address] Patient Name: SCAR JEFFREY MRN: [id number] date: 1980 Sex: F Assigned Patient Location: MRI Current Patient Location: LAB Accession/Order Number: [id number] Exam Date: 02/27/2025 15:42 Report Date: 02/27/2025 15:44 At the request of: LORENZO CARLSON MD Procedure: MR angio neck wo con MR angio neck wo con 02/27/2025 9:55 AM SIGNS AND SYMPTOMS: amaurosis fugax both eyes PROTOCOL: 3-D uvfr-ar-tnawnd MRA of the neck with 3-D reconstructions [...] Rico M.D. 02/27/2025 3:44 PM Dictation Location: [place] [address] Electronically authenticated by: [id number] Y Date: 02/27/2025 15:44 Dictated By: Jim Rico M.D. Signed By: 02/27/25 1546 DD/ 1544 TD/TT: Nursery Laborer: [place] [address] Magnetic Resonance Report Signed Patient: SCAR JEFFREY MR#: [id number] : 1980 Acct:[id number] Age/Sex: 44 / F ADM Date: 02/27/25 Loc: MRI Attending Dr: Gilberto Carlson M.D. Ordering Physician: Lorenzo Carlson M.D. Date of Service: 02/27/25 Procedure(s): MR ang io neck wo con Accession Number(s): [id number] cc: Lorenzo Carlson M.D. [address] [address] Patient Name: SCAR JEFFREY MRN: [id number] date: 1980 Sex: F Assigned Patient Location: MRI Current Patient Location: LAB Accession/Order Numb er: [id number] Exam Date: 02/27/2025 15:42 Report Date: 02/27/2025 15:44 At the request of: LORENZO CARLSON MD Procedure: MR angio neck wo con MR angio neck wo con 02/27/2025 9:55 AM SIGNS AND SYMPTOMS: amaurosis fugax both eyes PROTOCOL: 3-D emdu-mc-ojfofe MRA of the neck with 3-D reconstructions [...] Rico M.D. 02/27/2025 3:44 PM Dictation Location: [place] [address] Electronically authenticated by: [id number] Y Date: 02/27/2025 15:44 Dictated By: Jim Rico M.D. Signed By: 02/27/25 1546 DD/ 1544 TD/TT: Nursery Laborer: MR angio head wo con Reviewed date:02/28/2025 01:37:12 PM Interpretation: Performing Lab: Notes/Report: Source Facility: [place] [id number] Magnetic Resonance Report Signed Patient: SCAR JEFFREY MR#: [id number] : 1980 Acct:[id number] Age/Sex: 44 / F ADM Date: 02/27/25 Loc: MRI Attending Dr: Lorenzo Carlson M.D. Ordering Physician: Lorenzo Carlson M.D. Date of Service: 02/27/25 Procedure(s): MR angio head wo con Accession Number(s): [id number] cc: Lorenzo Carlson M.D. [place] [address] Patient Name: SCAR JEFFREY MRN: [id number] date: 1980 Sex: F Assigned Patient Location: MRI Current Patient Location: LAB Accession/Order Number: [id number] Exam Date: 02/27/2025 15:34 Report Date: 02/27/2025 15:42 At the request of: LORENZO CARLSON MD Procedure: MR angio head wo con MR angio head wo con 02/27/2025 9:33 AM SIGN OF SYMPTOMS: amaurosis fugax both eyes PROTOCOL: Axial 3-D ocfj-it-wxsywc MRA of the brain without contrast including [...] Rico M.D. 02/27/2025 3:42 PM Dictation Location: [place] [address] Electronically authenticated by: [id number] Y Date: 02/27/2025 15:42 Dictated By: Jim Rico M.D. Signed By: 02/27/25 1545 DD/ 1542 TD/TT: Nursery Laborer: [place] [address] Magnetic Resonance Report Signed Patient: SCAR JEFFREY MR#: [id number] : 1980 Acct:[id number] Age/Sex: 44 / F ADM Date: 02/27/25 Loc: MRI Attending Dr: Gilberto Carlson M.D. Ordering Physician: Lorenzo Carlson M.D. Date of Service: 02/27/25 Procedure(s): MR ang io head wo con Accession Number(s): [id number] cc: Lorenzo Carlson M.D. [place] [id number] Patient Name: SCAR JEFFREY MRN: [id number] date: 1980 Sex: F Assigned Patient Location: MRI Current Patient Location: LAB Accession/Order Numb er: [id number] Exam Date: 02/27/2025 15:34 Report Date: 02/27/2025 15:42 At the request of: LORENZO CARLSON MD Procedure: MR angio head wo con MR angio head wo con 02/27/2025 9:33 AM SIGN OF SYMPTOMS: amaurosis fugax both eyes PROTOCOL: Axial 3-D izyc-re-ezkxti MRA of the brain without contrast including [...] Rico M.D. 02/27/2025 3:42 PM Dictation Location: [place] [address] Electronically authenticated by: [id number] Y Date: 02/27/2025 15:42 Dictated By: Jim Rico M.D. Signed By: 02/27/25 1545 DD/ 1542 TD/TT: Nursery Laborer: US soft tissue head and neck Reviewed date:09/08/2024 08:32:33 PM Interpretation: Performing Lab: Notes/Report: Source Facility: [place] [address] [place] [address] Ultrasound Report Signed Patient: SCAR JEFFREY MR#: [id number] : 1980 Acct:[id number] Age/Sex: 43 / F ADM Date: 09/05/24 Loc: US Attending Dr: Lorenzo Carlson M.D. Ordering Physician: Lorenzo Carlson M.D. Date of Service: 09/05/24 Procedure(s): US soft tissue head and neck Accession Number(s): [id number] cc: Lorenzo Carlson M.D. The [address] [id number] Patient Name: SCAR JEFFREY MRN: [id number] date: 1980 Sex: F Assigned Patient Location: US Current Patient Location: Accession/Order Number: [id number] Exam Date: 09/05/2024 10:33 Report Date: 09/08/2024 [...] Signed By: 09/08/24 1247 DD/ 1245 TD/TT: Nursery Laborer: [place] [address] Ultrasound Report Signed Patient: SCAR JEFFREY MR#: [id number] : 1980 Acct:[id number] Age/Sex: 43 / F ADM Date: 09/05/24 Loc: US Attending Dr: Gilberto Carlson M.D. Ordering Physician: Lorenzo Carlson M.D. Date of Service: 09/05/24 Procedure(s): US sof t tissue head and neck Accession Number(s): [id number] cc: Lorenzo Carlson M.D. The [address] [address] Patient Name: SCAR JEFFREY MRN: [id number] date: 1980 Sex: F Assigned Patient Location: US Current Patient Location: Accession/Order Numb er: [id number] Exam Date: 10:33 Report Date: 09/08/2024 12:45 [...] Signed By: 09/08/24 1247 DD/ 1245 TD/TT: Nursery Laborer: BNP Reviewed date:08/26/2024 12:44:27 PM Interpretation: Performing Lab: Notes/Report: [facility] , NT Pro B Type Natriuretic Pept 7.0 <=450.0 pg/mL Performing Lab: see note ML - [facility] LB BNP Reviewed date:04/15/2024 03:18:59 PM Interpretation: Performing Lab: Notes/Report: [facility] , NT Pro B Type Natriuretic Pept 8.0 <=450.0 pg/mL Performing Lab: see note ML - [facility] LB Reason For Referral Reason also possible basal cell Diagnosis 1 Skin tags, multiple acquired (L91.8) Referral Organization [facility] Referring Provider First Name Joe Referring Provider Last Name priyank Referring Provider [facility] tree Referred Provider Kobe Ramesh Referred Provider Specialty General Surg kenyatta Referral Priority Routine Diagnosis 1 Occult blood positiv e stool (R19.5) Referral Organization [facility] Referring Provider First Name Joe Referring Provider Last Name Diego Referring Provider [facility] tree Referred Provider Kobe Ramesh Referred Provider Specialty General Surg kenyatta Referral Priority Routine Diagnosis 1 Localized swelling, mass and lump, head (R22.0) Referral Organization [facility] Referring Provider First Name Joe Referring Provider Last Name [facility]ank [facility] Shara Healy Referred Provider [...] breakfast Orally Once a day 02/25/2025 Active Vitamin D (Ergocalciferol) 1.25 MG (24208 UT) take 1 capsule by mouth every week for 84 Active Ferrous Sulfate 325 (65 Fe) MG 1 tablet Orally twice daily for 30 days 04/16/2024 Not-Taking amLODIPine Besylate 10 MG 1 tablet Orall y Once a day for 90 days 04/18/2024 Not-Taking Simvastatin 20 MG TAKE 1 TABLET EVERY DAY for 90 Active Advair HFA 230-21 MCG/ACT 2 puffs Inhala tion Twice a day 08/20/2024 Active Plavix 75 MG 1 tablet Orally Once a day for 90 days 02/09/2025 Active Omeprazole 40 MG TAKE [...] Notes Problem Gastro-esophageal reflux disease without esophagitis (971304346) Gastro-esophageal reflux disease without esophagitis (K21.9) Active confirmed Problem 349230017 Type 1 diabetes mellitus with diabetic polyneuropathy (E10.42) Active confirmed Problem 133074968 Morbid (severe) obesity due to excess calories (E66.01) Active confirmed Problem Overweight (004009067) Overweight (E66.3) Active confirmed Problem Essential tremor (731721598) Essential tremor (G25.0) Active confirmed Problem 746053412 Age-related nuclear cataract, bilateral (H25.13) Active confirmed Problem Nuclear cataract (99336565) Infantile and juvenile nuclear cataract, unspecified eye (H26.039) Active confirmed Problem 474435835050575 Myopia, bilatera l (H52.13) Active confirmed Problem Astigmatism (43370344) Unspecified astigmatism, bilateral (H52.203) Active confirmed Problem Chronic laryngitis (99146962) Chronic laryngitis (J37.0) Active confirmed Problem 15400587 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 Problem Arthralgia of the upper arm (733157942) Pain in right elbow (M25.521) Active confirmed Problem 88627474 Radiculopathy, cervical region (M54.12) Active confirmed Problem Swelling of head (277773861) Localized swelling, mass and lump, head (R22.0) Active confirmed Problem Closed fracture of upper end of tibia (81153559) Nondisplaced bicondylar fracture of right tibia, initial encounter for closed fracture (S82.144A) Active confirmed Problem Long-term current use of insulin (531365728) [facility] (current) use of insulin (Z79.4) Active confirmed Problem Fatigue (19790064) Fatigue (R53.83) Active conf irmed Problem Onychomycosis (557142038) Onychomycosis (B35.1) Active confirmed Problem Senile osteoporosis (25616935) Senile osteoporosis (M81.0) Active confirmed Problem Hypertension (62760512) Hypertension (I10) Active confirmed Problem Carpal tunnel syndrome (43256928) Carpal tunnel syndrome, bilateral (G56.01) Active confirmed Problem Cigarette smoker (81370214) Cigarette smoker (F17.210) Active confirmed Problem Gastroesophageal reflux disease (589669958) GERD (gastroesophageal reflux disease) (K21.9) Active confirmed Problem Seizure (47161775) Seizures (R56.9) Active conf irmed Problem Edema (42277294) Edema (R60.9) Active confirmed Problem Sleep apnea (16679175) Sleep apnea (G47.30) Active confirmed Problem Insomnia (735708696) Insomnia (G47.00) Active confirmed Problem Acid reflux (836146930) Acid reflux (K21.9) Active confirmed Problem Amaurosis fugax of left eye (94155400591770861) Amaurosis fugax of left eye (G45.3) Active confirmed Problem Migraine (97134140) Migraine (G43.909) Active c onfirmed Problem Degeneration of cervical intervertebral disc (02244234) Degenerative disc disease, cervical (M50.30) Active confirmed Problem Foot pain (91324954) Foot pain (M79.673) Active confirmed Problem Pain of right knee region (finding) (395137347244533) Knee pain, right (M25.561) Active confirmed Problem Chronic sinusitis (55971313) Chronic sinusitis (J32.9) Active confirmed Problem Well adult (288327442) Well adult (Z00.00) Active confirmed Problem Family History of Cancer of Colon (Situation) (391869399) Family history of colon cancer (Z80.0) Active confirmed Problem Mass of neck (336809490) Neck mass (R22.1) Active confirmed Problem Tubular adenoma (138003031) Tubular adenoma (D36.9) Active confirmed Problem Diastasis recti (34043613) Diastasis recti (M62.08) Active confirmed Problem Multiple skin tags (011531090) Skin tags, multiple acquired (L91.8) Active confirmed Problem Nevus (1930144927) Nevus (D22.9) Active confirm ed Problem Viral gastroenteritis (768570187) Viral gastroenteritis (A08.4) Active confirmed Problem Hoarse (17518077) Hoarse (R49.0) Active confirm ed Problem Acute urinary tract infection (120090815) Acute UTI (N39.0) Active confirmed Problem Edema (322861153) Fluid retentio n in tissues (R60.9) Active confirmed Problem Mass of head (846459994) Mass of head (R22.0) Active confirmed Problem Lesion of vocal cord (186133864) Lesion of vocal cord (J38.3) Active confirmed Problem 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 (112197352) Diabetic neuropathy associated with type 1 diabetes mellitus (E10.40) Active confirmed Problem Acute embolism a nd thrombosis of superficial vein of left upper extremity (I82.612) Active confirmed Problem 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) (10045496054239469) Type 1 diabetes mellitus with mild nonproliferative diabetic retinopathy without macular edema, bilateral (E10.3293) Active confirmed Problem 39654093420944669 Type 1 diabete s mellitus with stable proliferative diabetic retinopathy, bilateral (E10.3553) Active confirmed Problem 54626389848106810 Type 1 diabete s mellitus with proliferative diabetic retinopathy without macular edema, bilateral (E10.3593) Active confirmed Problem Transient arterial retinal occlusion (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) Amaurosis fugax, 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) Active confirmed Problem Mixed anxiety and depressive disorder (669386952) Anxiety and depression (F41.8) Active confirmed Problem Benign neoplasm of colon (80841844) Hyperplastic polyp of ascending colon (K63.5) Active confirmed Problem 027312846 Abnormal finding s on diagnostic imaging of other specified body structures (R93.89) Active confirmed Problem COVID-19 (733881769) COVID-19 (U07.1) Active confirmed Problem Acute Laryngitis (9022715) Acute laryngitis, without mention of obstruction (J04.0) [...] N/A Encounters Encounter Location Date Provider Diagnosis [facility] [address] [facility] [address] 03/10/2025 Joe Carlson Morbid (severe) obes ity due to excess calories E66.01 [facility] [address] [place] [address] 10/14/2024 Joe Carlson [facility] [address] [place] [address] 12/04/2024 Joe Carlson [facility] [address] [place] [address] 01/05/2025 Joe Carlson [facility] [address] [place] [address] 01/26/2025 Joe Carlson [facility] [address] [place] [address] 02/25/2025 Joe Carlson Fatigue R53.83 ; Screening for colon cancer Z12.11 ; Senile osteoporosis M81.0 and Screening for breast cancer Z12.31 [facility] [address] [place] [address] 02/28/2025 Joe Carlson [facility] [address] [place] [address] 08/26/2024 Joe Carlson [facility] [address] [place] [address] 08/26/2024 Joe Hoy Occult blood positiv e stool R19.5 and Diarrhea R19.7 [facility] [address] [facility] [place] [address] 09/08/2024 Joe Hoy Lymph nodes enlarged R59.9 [facility] [address] [facility] [place] [address] 09/28/2024 Joe Hoy Dehydration E86.0 [facility] [address] [facility] [place] [address] 09/29/2024 Joe Hoy Localized swelling, mass and lump, head R22.0 [facility] [address] [facility] [place] [address] 10/10/2024 Joe Hoy Hypertension I10 [facility] [address] [place] [address] 06/10/2024 Joe Hoy [facility] [address] [place] [address] 06/12/2024 Joe Hoy [facility] [address] [place] [address] 06/16/2024 Joe Hoy [facility] [address] [place] [address] 06/20/2024 Joe Hoy Hypertension I10 [facility] [address] [place] [address] 08/20/2024 Joe Hoy Hypertension I10 [facility] [address] [place] [address] 08/20/2024 Joe Hoy [facility] [address] [place] [address] 04/15/2024 Joe Hoy [facility] [address] [place] [address] 04/18/2024 Joe Hoy Hypertension I10 [facility] [address] [place] [address] 04/21/2024 Joe Hoy [facility] [address] [place] [address] 05/26/2024 Joe Hoy [facility] [address] [place] [address] 06/02/2024 Joe Hoy [facility] [address] [place] [address] 04/15/2024 Joe Hoy Hypertension I10 [facility] [address] [place] [address] 07/18/2024 Joe Hoy Seizures R56.9 and T ype 1 diabetes mellitus with mild nonproliferative diabetic retinopathy without macular edema, bilateral E10.3293 [facility] [address] [place] [address] 02/25/2025 Joe Hoy Well adult Z00.00 [address] [place] [address] 05/23/2024 Joe Hoy Skin tags, multiple acquired L91.8 ; Nevus D22.9 and Acute UTI N39.0 [facility] [address] [place] [address] 08/26/2024 Joe Hoy Morbid (severe) obes ity due to excess calories E66.01 ; 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, bilateral E10.3593 ; Localized swelling, mass and lump, head R22.0 ; Fatigue R53.83 and Hypertension I10 [facility] [address] [place] [address] 02/09/2025 Joe Hoy Morbid (severe) obes ity due to excess calories E66.01 ; 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, bilateral E10.3593 ; Acute bronchitis, unspecified organism J20.9 ; Amaurosis fugax of left eye G45.3 and Amaurosis fugax, both eyes G45.3 [facility] [place] ([facility]) [address] [place] [address] [place] [address] 04/10/2024 Mer Agudelo Type 1 diabetes mellitus with diabetic polyneuropathy E10.42 [facility] [address] [place] [address] 02/25/2025 Joe Carlson Encounter for Medica re annual wellness exam Z00.00 Assessments Encounter Date [...] due to excess calories (ICD-10 - E66.01) 03/10/2025 Morbid (severe) obesity due to excess [...] vaporizer to help keep the drainage moist. Bvpd-ouj-ttbyejj Nasal Saline may help the stuffy and runny nose. Use Ibuprofen and or Tylenol as needed for fever, chills, body aches or pain. Children 5 years old should not be given hfet-yht-gzbnund cough and cold medications such as guaifenesin and dextromethorphan. If you're over age 5, you may try advz-aiw-rriqflp cold medications such as guaifenesin and dextromethorphan, [...] DIFF 02/09/2025 CRP 02/09/2025 GLYCOHEMOGLOBIN A1C 02/25/2025 SED RATE WESTERGREN 02/09/2025 XR CSPINE [...] BRAIN WO CONTRAST 02/09/2025 Vitamin D 02/25/[address] w/contrast * 09/08/2024 Future Test Test Name Order Date BMP w/GFR 10/06/2024 Next Appt Details Provider Name:Joe Carlson, 09:45:00 AM, [address] [facility] [place], [address], Insurance Providers Payer Name Payer Address Payer Phone Subscriber Number Group Number Insured Name Patient Relationship to Insured Coverage Start Date Coverage End Date [employer] ADV PLAN [address] [address] [place] [address] [id number] Scar Su Self - patient is the insured 0 MEDICAID [place] 2ND INS [address] [place], [place] [id number] Scar Su Self - patient is the [...] J37.0 Gastro-esophageal reflux disease without esophagitis K21.9 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
--- OUTSIDE RECORDS SUMMARY | 2025-03-12 08:39 | XMS_ITS | Clinical Summary ---
Author Organization [facility] Address [id number] [address] [place] [address] Care Team Providers Care Intern Retail Name Role Phone George Cortez MD Primary Care Provider [phone] Medications lisinopril-hydr oCHLOROthiazide (PRINZIDE,ZESTO RETIC) 20-25 mg [...] file Insurance MEDICARE [place]ICAID [place] Care Teams Intern Retail Relationship Specialty Start Date End Date George Cortez MD PCP - General Family Medicine 04/09/19
--- OUTSIDE RECORDS SUMMARY | 2025-03-12 08:39 | XMS_ITS | Encounter Summary ---
Author Organization [facility] Address [address] [place] [address] Care Team Providers Care Photolithographer Name Role Phone George Cortez MD Primary Care Provider [phone] Encounter Details Date Type Department Care Team (Late st Contact Info) Description 01/17/2024 Abstract [facility] [address] [place] [address] Jennifer Zheng MA Social History [...] Visit [facility] [address] [place] [address] Zay Montiel MD [address] [place] [address] documented as of this encounter Visit Diagnoses Not on filedocumented in this encounter Care Teams Photolithographer Relationship Specialty Start Date End Date George Cortez MD PCP - General Family Medicine 12/18/23 documented as of this encounter
--- OUTSIDE RECORDS SUMMARY | 2025-03-12 08:54 | XMS_ITS | CCD ---
Author Organization [facility] Care Team Providers Care Principal Statistical Programmer Name Role Phone NOÉHEIMCARMENIL Attending Unavailable EBRAHEIM [...] Unavailable HOY ., DR VENTURA Consulting Unavailable [facility], DR FLORA Davidson Consulting Unavailable HOY ., DR VENTURA Admitting Unavailable HOY ., DR VENTURA Primary Care Unavailable HOY ., DR VENTURA Attending Unavailable HOY ., DR VENTURA Consulting Unavailable [place], DR EDNA Carlson Consulting Unavailable HOY ., [...] Physician Lorenzo Cortez MD Primary Care Provider [phone] NILL, Kobe R Attending Unavailable NILL, Kobe [...] [Vicodin] Drug Allergy 3 [facility] Repository (3 sources) Acetaminophen / HYDROcodone; Translations: [Lortab] Drug Allergy 6 [facility] Repository (1 source) Adhesive agent Drug allergy (disorder) 3 [facility] Repository (3 sources) Amino Acids; Translations: [lisinopril] Drug Allergy 6 [facility] Repository (3 sources) lamoTRIgine; Translations: [LaMICtal] Drug Allergy 3 [facility] Repository (3 sources) Morphine; Translations: [morphine] Drug Allergy 3 [facility] Repository (3 sources) OXcarbazepine; Translations: [Trileptal] Drug Allergy 3 [facility] Repository (1 source) Penicillins Drug allergy (disorder) 3 [facility] Repository (3 sources) Valproate; Translations: [Depakote] Drug Allergy 3 [facility] Repository (12 sources) Acetaminophen / HYDROcodone; Translations: [acetaminophen-hy drocodone] Drug Allergy Edema of pharynx (disorder) [facility] (6 sources) lamoTRIgine; Translations: [lamotrigine] Drug Allergy Cutaneous eruption (morphologic abnormality) [facility] (6 sources) Lisinopril; Translations: [lisinopril] Drug Allergy Edematous skin (disorder) [facility] (16 sources) Morphine; Translations: [morphine] Drug Allergy 4 Vomiting (disorder), GI intolerance [facility] (6 sources) OXcarbazepine; Translations: [oxcarbazepine] Drug Allergy Edema of pharynx (disorder) [facility] (8 sources) Penicillin; Translations: [penicillin] Drug Allergy Cutaneous eruption (morphologic abnormality) [facility] (6 sources) Valproate; Translations: [divalproex sodium] Drug Allergy Edema of pharynx (disorder) [facility] (10 sources) Codeine Drug Allergy 4 [facility] (10 sources) HYDROcodone Drug Allergy 4 [facility] Healthcare Work Phone: (10 sources) Lamotrigine Allergy to substance 4 Rash [facility] (10 sources) Oxcarbazepine Allergy to substance 4 [facility] (10 sources) Penicillin G Drug Allergy 4 Hives [facility] (10 sources) Penicillins Propensity to adverse reactions 4 [facility] (10 sources) Valproate Drug Allergy 4 [facility] Medications Current Medications Medication Drug Class(es) [...] at the same time Active Continuous Glucose Magnetic Locater (Dexcom G7 Magnetic Locater) device (7 sources) Start: 09-01-2024 Continuous Glucose Magnetic Locater (Dexcom G7 Magnetic Locater) device Indications: Type 1 diabetes mellitus with [...] by mouth every week Vitamin D, Ergocalciferol, 81077 units capsule Take 1 tablet by mouth [...] Start: 04-09-2019 take 1 capsule by mo [facility] every week Vitamin D = 1 [...] 12-24-2023 12-24-2023 Episodic Other aftercare (1 source) nursing home (current) use of insulin; Translations: [SWING TENDER CURRENT USE OF INSULIN] Onset: 10-09-2022 Episodic Other aftercare (14 sources) Long-term current use of insulin; Translations: [emt intermediate (current) use of insulin] Onset: 01-17-2024 01-17-2024 [...] EDT With: AILYN CHENG, Kobe Davidson Where: [facility] [address], [address], [place] [id number]- Medications What How Much When Instructions Unchanged [...] (VOMITING) Tr (more content not included)... Normal [facility] Ambulatory Visit Summary Ambulatory Visit Summary SCAR [...] disorder BMI (more content not included)... Normal [facility] Office/Clini c Noteon 01-27-2025 General [...] (Vomiting) penici (more content not included)... Normal [facility] Comment on above: Result Comment: Elec tronically [...] EDT With: AILYN CHENG, Kobe Davidson Where: [facility] [address], [address], [place] [id number]- Medications What How Much When Instructions Unchanged [...] lisinopril (Ed (more content not included)... Normal [facility] Office/Clini c Noteon 12-23-2024 General [...] (Rash) So (more content not included)... Normal [facility] Comment on above: Result Comment: Elec tronically Signed By: AILYN CHENG, Kobe R\alon\Date and Time Signed: 12/23/24 16:09 EDT Glucose (Bld) [Mass/Vol]on 0 10-30-2024 Glucose Blood, POC 241 mg/dL [facility] - Hematology and Cell countson 10-30-2024 HbA1c (Bld) [Mass fraction] 8.1 % [facility] No Panel Informationon 10-30 Interpretation and review of laboratory results Abnormal [facility] Healthcare [facility] Ambulatory Visit Summaryon 0 09-23-2024 Ambulatory [...] (Edematous sk (more content not included)... Normal [facility] Provider Letteron 09-01-2024 Provider Letter Provider Letter September 01, 2024 SCAR JEFFREY [address] [address] : 1980 Dear Ms. Jeffrey, We have been trying to reach you with no success regarding a referral from Dr Cortez. It is important that you return our call upon receiving this letter. Also, at the time of your call, please provide us with your current information. Thank you for your prompt attention to this matter. Sincerely, [facility] Surgery [phone] Normal [facility] Surgical Pathology Reporton 06-25-2024 Surgical Pathology Report [facility] [address] [place] [address]- Surgical Pathology Report Collected Date/Time: 06/18/2024 15:32 [...] and entirely submitted in one cassette. (DC) DC:[facility] Microscopic Description Microscopic examination performed unless gross only specified. Multiple levels are microscopically examined. Normal [facility] Comment on above: Performed By: #### [id number] #### [facility] [address] [place] [address] Ambulatory Visit Summaryon 1 Ambulatory Visit Summary [...] for choosing us for your care. Malia [facility] Office/Clini c Noteon 06-24-2024 General [...] Years., 06/03/20 (more content not included)... Normal [facility] Comment on above: Result Comment: Elec tronically Signed By: AILYN CHENG, Kobe Davidson\.br\Date and Time Signed: 06/24/24 14:17 EDT Glucose (Bld) [Mass/Vol]on 1 Glucose Blood, POC 361 mg/dL [facility] HbA1c (Bld) [Mass fraction]o n 06-23-2024 [facility] - Hematology and Cell countson 06-23-2024 HbA1c (Bld) [Mass fraction] 7.9 % [facility] Ambulatory Visit Summaryon 1 Ambulatory Visit [...] EDT With: AILYN CHENG, Kobe Davidson Where: [address], [address], [place] [address]- Medications What How Much When Instructions Unchanged [...] Diastasis recti (more content not included)... Normal [facility] Office/Clini c Noteon 06-18-2024 General [...] ER Tab (more content not included)... Normal [facility] Comment on above: Result Comment: Elec tronically [...] PM EDT With: Kobe ROBERTSON MD Where: [facility] [address], [address], [place] [address]- Medications What How Much When Instructions Unchanged [...] (Rash) Pro (more content not included)... Normal [facility] CREATININEon 01-22-2023 Creatinine [Mass/Vol] 0.98 mg/dL Normal 0.55-1.02 [facility] Comment on above: Performed By: #### C NILSON #### [facility] [address] [place] [address] Dr. Keeley Hoskins EGFR-AF [place]IZ[place] >60 Normal >=60 [facility] Comment on above: Performed By: #### C NILSON #### [facility] [address] [place] [address] [address] Keeley Hoskins EGFR-NON AF CITIZEN [place] >60 Normal >=60 [facility] Comment on above: Performed By: #### C NILSON #### [facility] [address] [place] [address] NECK [address] W [...] EDNA GOMEZ Date: 2023-01-22 11:08 Normal [facility] MRI CSPINE WO CONon 01-23-20 [...] by: EDNA GOMEZ Date: 2023-01-22 11:04 Normal [facility] CT FACIAL BONES WO CONon CT [...] FLORA DERAS Date: 2023-01-04 07:25 Normal [facility] XR CSPINE MIN 4 VIEWSon [...] by: FLORA DERAS Date: 2023-01-04 07:12 Normal [facility] C-PEPTIDE, SERUMon C-Peptide, Serum <0.1 Critically low 1.1-4.4 [facility] Comment on above: Result Comment: C-Pe ptide reference interval is for fasting patients. Performed By: #### C PEPT #### [facility] [address] [place] [address] [address] Keeley Hoskins BNPon 10-06-2022 Natriuretic peptide B (Bld) [Mass/Vol] 20.0 pg/mL Normal <=450.0 [facility] Comment on above: Performed By: #### R ENAL, LIPID #### [facility] [address] [place] [address] [address] Keeley Hoskins LIPID PROFILEon 10-06-2022 CHOL-HDL RATIO NORM SEE BELOW Normal [facility] Comment on above: Result Comment: 3.3 - 4.4 LOW RISK 4.4 - 7.1 AVERAGE RISK 7.1 - 11.0 MODERATE RISK >11.0 HIGH RISK Performed By: #### R ENAL, LIPID #### [facility] [address] [place] [address] Dr. Keeley Hoskins Cholesterol [Mass/Vol] 156 mg/dL Normal <=200 [facility] Comment on above: Performed By: #### R ENAL, LIPID #### [facility] [address] [place] [address] [address] Keeley Hoskins Cholesterol in HDL [Mass/Vol] 32 mg/dL Critically low 40-60 [facility] Comment on above: Performed By: #### R ENAL, LIPID #### [facility] [address] [place] [address] [address] Keeley Hoskins Cholesterol in LDL [Mass/Vol] 71.8 mg/dL Normal [facility] Comment on above: Performed By: #### R ENAL, LIPID #### [facility] [address] [place] [address] [address] Keeley Hoskins Cholesterol.total/C holesterol in HDL [Mass ratio] 4.9 {ratio} Normal [facility] Comment on above: Performed By: #### R ENAL, LIPID #### [facility] [address] [place] [address] [address] Keeley Hoskins HDL NORMAL > or = 60 mg/dl - LO W CARDIOVASCULAR RISK <40 mg/dl - HIGH CARDIOVASCULAR RISK Normal [facility] Comment on above: Performed By: #### R ENAL, LIPID #### [facility] [address] [place] [address] [address] Keeley Hoskins LDL CALC NORMAL SEE BELOW Normal [facility] Comment on above: Result Comment: <100 mg/dl OPTIMAL 100 - 129 mg/dl NEAR OR ABOVE OPTIMAL 130 - 159 mg/dl BORDERLINE HIGH 160 - 189 mg/dl HIGH >190 mg/dl VERY HIGH Performed By: #### R ENAL, LIPID #### [facility] [address] [place] [address] [address] Keeley Hoskins Triglyceride [Mass/Vol] 261 mg/dL Critically high <=150 [facility] Comment on above: Performed By: #### R ENAL, LIPID #### [facility] [address] [place] [address] [address] Keeley Hoskins VLDL CALC 52.2 mg/dL Normal [facility] Comment on above: Performed By: #### R ENAL, LIPID #### [facility] [address] [place] [address] [address] Keeley Hoskins MICROALB CREAT RATIO RANDOMo n 01-27-2023 mALB 4.2 mg/L Normal <=30.0 [facility] Comment on above: Performed By: #### M CRR #### [facility] [address] [place] [address] [address] Keeley Hoskins URINE CREAT <13.00 Critically low 20.00-300.00 [facility] Comment on above: Performed By: #### M CRR #### [facility] [address] [place] [address] [address] Keeley Hoskins RENAL FUNCTION PANELon 10-06 Albumin [Mass/Vol] 4.0 g/dL Normal 3.4-5.0 [facility] Comment on above: Performed By: #### R ENLISSY, LIPID #### [facility] [address] [place] [address] Dr. Keeley Hoskins Calcium [Mass/Vol] 9.3 mg/dL Normal 8.5-10.1 [facility] Comment on above: Performed By: #### R ENLISSY, LIPID #### [facility] [address] [place] [address] [address] Keeley Hoskins Chloride [Moles/Vol] 101 mmol/L Normal 98-107 [facility] Comment on above: Performed By: #### R ENLISSY, LIPID #### [facility] [address] [place] [address] Dr. Keeley Hoskins CO2 [Moles/Vol] 28.9 mmol/L Normal 21.0-32.0 [facility] Comment on above: Performed By: #### R ENAL, LIPID #### [facility] [address] [place] [address] Dr. Keeley Hoskins Creatinine [Mass/Vol] 0.81 mg/dL Normal 0.55-1.02 [facility] Comment on above: Performed By: #### R ENAL, LIPID #### [facility] [address] [place] [address] Dr. Keeley Hoskins EGFR-AF [place]IZ[place] >60 Normal >=60 [facility] Comment on above: Performed By: #### R ENAL, LIPID #### [facility] [address] [place] [address] [address] Keeley Hoskins EGFR-NON AF CITIZ[place] >60 Normal >=60 [facility] Comment on above: Performed By: #### R ENAL, LIPID #### [facility] [address] [place] [address] [address] Keeley Hoskins Glucose [Mass/Vol] 123 mg/dL Critically high 74-106 [facility] Comment on above: Performed By: #### R ENAL, LIPID #### [facility] [address] [place] [address] [address] Keeley Hoskins Phosphate [Mass/Vol] 3.9 mg/dL Normal 2.6-4.7 [facility] Comment on above: Performed By: #### R ENAL, LIPID #### [facility] [address] [place] [address] [address] Keeley Hoskins Potassium [Moles/Vol] 4.4 mmol/L Normal 3.5-5.1 [facility] Comment on above: Performed By: #### R ENAL, LIPID #### [facility] [address] [place] [address] [address] Keeley Hoskins Sodium [Moles/Vol] 140 mmol/L Normal 136-145 [facility] Comment on above: Performed By: #### R ENLISSY, LIPID #### [facility] [address] [place] [address] [address] Keeley Hoskins Urea nitrogen [Mass/Vol] 12.0 mg/dL Normal 7.0-18.0 [facility] Comment on above: Performed By: #### R ENAL, LIPID #### [facility] [address] [place] [address] [address] Keeley Hoskins VITAMIN D 25 OHon 10-06-2022 VIT D 25-OH 37.8 ng/mL Normal [facility] Comment on above: Performed By: #### R ENAL, LIPID #### [facility] [address] [place] [address] [address] Keeley Hoskins VIT D RANGES SEE BELOW Normal [facility] Comment on above: Result Comment: <20 ng/mL Vit D deficient 20 - <30 ng/mL Vit D insufficient 30 - 100 ng/mL Vit D sufficient >100 ng/mL Potential Toxicity Performed By: #### R ENAL, LIPID #### [facility] [address] [place] [address] Dr. Keeley Hoskins NM STRESS/REST MULTIon 04-17 NM STRESS/REST MULTI Patient: SCAR JEFFREY Exam Date: 04/17/2022 : 1980 Gender:F Ordering : DR LORENZO CORTEZ . Admission #: [id number] Family : Order #: [id number] CLICK HERE TO VIEW EXAM RADIOLOGY REPORT [...] MD on 04/18/2022 at 11:44 Normal [facility] ECHOCARDIO M/2D COMPLETEon 0 03-30-2022 ECHOCARDIO M/2D COMPLETE Patient: SCAR JEFFREY Exam Date: 03/30/2022 : 1980 Gender:F Ordering : DR LORENZO CORTEZ . Admission #: [id number] Family : Order #: [id number] CLICK HERE TO VIEW EXAM ECHOCARDIOGRAM REPORT [...] M.D. on 03/30/2022 at 13:50 Normal [facility] LIPID PROFILEon 03-30-2022 CHOL-HDL RATIO NORM SEE BELOW Normal [facility] Comment on above: Result Comment: 3.3 - 4.4 LOW RISK 4.4 - 7.1 AVERAGE RISK 7.1 - 11.0 MODERATE RISK >11.0 HIGH RISK Performed By: #### R ENLISSY, LIPID #### [facility] [address] [place] [address] Dr. Keeley Hoskins Cholesterol [Mass/Vol] 140 mg/dL Normal <=200 [facility] Comment on above: Performed By: #### R ENLISSY, LIPID #### [facility] [address] [place] [address] [address] Keeley Hoskins Cholesterol in HDL [Mass/Vol] 30 mg/dL Critically low 40-60 [facility] Comment on above: Performed By: #### R ENLISSY, LIPID #### [facility] [address] [place] [address] [address] Keeley Hoskins Cholesterol in LDL [Mass/Vol] 69.2 mg/dL Normal [facility] Comment on above: Performed By: #### R ENLISSY, LIPID #### [facility] [address] [place] [address] Dr. Keeley Hoskins Cholesterol.total/C holesterol in HDL [Mass ratio] 4.7 {ratio} Normal [facility] Comment on above: Performed By: #### R ENLISSY, LIPID #### [facility] [address] [place] [address] [address] Keeley Hoskins HDL NORMAL > or = 60 mg/dl - LO W CARDIOVASCULAR RISK <40 mg/dl - HIGH CARDIOVASCULAR RISK Normal [facility] Comment on above: Performed By: #### R ENLISSY, LIPID #### [facility] [address] [place] [address] Dr. Keeley Hoskins LDL CALC NORMAL SEE BELOW Normal [facility] Comment on above: Result Comment: <100 mg/dl OPTIMAL 100 - 129 mg/dl NEAR OR ABOVE OPTIMAL 130 - 159 mg/dl BORDERLINE HIGH 160 - 189 mg/dl HIGH >190 mg/dl VERY HIGH Performed By: #### R ENLISSY, LIPID #### [facility] [address] [place] [address] [address] Keeley Hoskins Triglyceride [Mass/Vol] 204 mg/dL Critically high <=150 [facility] Comment on above: Performed By: #### R ENAL, LIPID #### [facility] [address] [place] [address] [address] Keeley Hoskins VLDL CALC 40.8 mg/dL Normal [facility] Comment on above: Performed By: #### R ENAL, LIPID #### [facility] [address] [place] [address] [address] Keeley Hoskins MICROALB CREAT RATIO RANDOMo n 03-30-2022 mALB 8.3 mg/L Normal <=30.0 [facility] Comment on above: Performed By: #### M CRR #### [facility] [address] [address] [address] Keeley Hoskins MALB CR RATIO 466.0 mg/g Critically high 0.0-29.9 [facility] Comment on above: Performed By: #### M CRR #### [facility] [address] [address] [address] Keeley Hoskins MALB CR RATIO RANGE SEE BELOW Normal [facility] Comment on above: Result Comment: NO M ICROALBUMINURIA 0-29 MG/G CLINICAL MICROALBUMINURIA 30-300 MG/G MACROALBUMINURIA >300 MG/G Performed By: #### M CRR #### [facility] [address] [address] [address] Keeley Hoskins URINE CREAT 17.81 mg/dL Critically low 20.00-300.00 [facility] Comment on above: Performed By: #### M CRR #### [facility] [address] [address] [address] Keeley Hoskins RENAL FUNCTION PANELon 03-30 Albumin [Mass/Vol] 4.2 g/dL Normal 3.4-5.0 [facility] Comment on above: Performed By: #### R ENAL, LIPID #### [facility] [address] [address] [address] Keeley Hoskins Calcium [Mass/Vol] 9.2 mg/dL Normal 8.5-10.1 [facility] Comment on above: Performed By: #### R ENAL, LIPID #### [facility] [address] [address] [address] Keeley Hoskins Chloride [Moles/Vol] 98 mmol/L Normal 98-107 [facility] Comment on above: Performed By: #### R ENAL, LIPID #### [facility] [address] [address] [address] Keeley Hoskins CO2 [Moles/Vol] 28.6 mmol/L Normal 21.0-32.0 [facility] Comment on above: Performed By: #### R ENAL, LIPID #### [facility] [address] [address] [address] Keeley Hoskins Creatinine [Mass/Vol] 1.17 mg/dL Critically high 0.55-1.02 [facility] Comment on above: Performed By: #### R ENAL, LIPID #### [facility] [address] [place] [address] [address] Keeley Hoskins EGFR-AF [place]IZ[place] >60 Normal >=60 [facility] Comment on above: Performed By: #### R ENAL, LIPID #### [facility] [address] [place] [address] [address] Keeley Hoskins EGFR-NON AF CITIZEN OF [place] 50 mL/min/1.73m2 Critically low >=60 [facility] Comment on above: Performed By: #### R ENAL, LIPID #### [facility] [address] [address] [address] Keeley Hoskins Glucose [Mass/Vol] 212 mg/dL Critically high 74-106 [facility] Comment on above: Performed By: #### R ENAL, LIPID #### [facility] [address] [place] [address] [address] Keeley Hoskins Phosphate [Mass/Vol] 4.0 mg/dL Normal 2.6-4.7 [facility] Comment on above: Performed By: #### R ENAL, LIPID #### [facility] [address] [address] [address] Keeley Hoskisn Potassium [Moles/Vol] 4.1 mmol/L Normal 3.5-5.1 [facility] Comment on above: Performed By: #### R ENAL, LIPID #### [facility] [address] [address] [address] Keeley Hoskins Sodium [Moles/Vol] 136 mmol/L Normal 136-145 [facility] Comment on above: Performed By: #### R ENAL, LIPID #### [facility] [address] [place] [address] Dr. Keeley Hoskins Urea nitrogen [Mass/Vol] 16.0 mg/dL Normal 7.0-18.0 [facility] Comment on above: Performed By: #### R ENAL, LIPID #### [facility] [address] [place] [address] Dr. Keeley Hoskins VITAMIN D 25 OHon 03-30-2022 VIT D 25-OH 33.8 ng/mL Normal [facility] Comment on above: Performed By: #### V ITAD #### [facility] [address] [place] [address] Dr. Keeley Hoskins VIT D RANGES SEE BELOW Normal [facility] Comment on above: Result Comment: <20 ng/mL Vit D deficient 20 - <30 ng/mL Vit D insufficient 30 - 100 ng/mL Vit D sufficient >100 ng/mL Potential Toxicity Performed By: #### V ITAD #### [facility] [address] [place] [address] Dr. Keeley Hoskins BNPon 03-16-2022 Natriuretic peptide B (Bld) [Mass/Vol] 20.0 pg/mL Normal <=450.0 [facility] Comment on above: Performed By: #### T 7, TSH, CMP, BNP #### [facility] [address] [place] [address] Dr. Keeley Hoskins CBC AUTO DIFFon 03-16-2022 BASO # 0.1 103/ul Normal 0.0-0.1 [facility] Comment on above: Performed By: #### R ENAL, LIPID #### [facility] [address] [place] [address] Dr. Keeley Hoskins Basophils/100 WBC (Bld) 1.0 % Normal 0.2-2.0 [facility] Comment on above: Performed By: #### R ENAL, LIPID #### [facility] [address] [place] [address] Dr. Keeley Hoskins EO # 0.1 103/ul Normal 0.0-0.7 [facility] Comment on above: Performed By: #### R ENAL, LIPID #### [facility] [address] [place] [address] Dr. Keeley Hoskins Eosinophils/100 WBC (Bld) 1.8 % Normal 0.9-7.0 [facility] Comment on above: Performed By: #### R ENAL, LIPID #### [facility] [address] [place] [address] Dr. Keeley Hoskins Erythrocyte distribution width (RBC) [Ratio] 12.3 % Normal 11.0-15.0 [facility] Comment on above: Performed By: #### R ENAL, LIPID #### [facility] [address] [place] [address] Dr. Keeley Hoskins Hematocrit (Bld) [Volume fraction] 37.3 % Normal 36.0-48.0 [facility] Comment on above: Performed By: #### R ENAL, LIPID #### [facility] [address] [place] [address] Dr. Keeley Hoskins Hemoglobin (Bld) [Mass/Vol] 12.7 g/dL Normal 12.0-16.0 [facility] Comment on above: Performed By: #### R ENAL, LIPID #### [facility] [address] [place] [address] Dr. Keeley Hoskins IG # 0.04 10e3/ul Critically high 0.00-0.03 [facility] Comment on above: Performed By: #### R ENAL, LIPID #### [facility] [address] [place] [address] Dr. Keeley Hoskins IG % 0.6 % Critically high 0.0-0.5 [facility] Comment on above: Performed By: #### R ENAL, LIPID #### [facility] [address] [place] [address] Dr. Keeley Hoskins LYMPH # 1.8 103/ul Normal 1.2-3.8 [facility] Comment on above: Performed By: #### R ENAL, LIPID #### [facility] [address] [place] [address] Dr. Keeley Hoskins Lymphocytes/100 WBC (Bld) 26.4 % Normal 20.5-60.0 [facility] Comment on above: Performed By: #### R ENAL, LIPID #### [facility] [address] [place] [address] Dr. Keeley Hoskins MANUAL DIFF REQ NO Normal [facility] Comment on above: Performed By: #### R ENAL, LIPID #### [facility] [address] [place] [address] Dr. Keeley Hoskins MCH (RBC) [Entitic mass] 28.0 pg Normal 26.7-34.0 [facility] Comment on above: Performed By: #### R ENAL, LIPID #### [facility] [address] [place] [address] Dr. Keeley Hoskins MCHC (RBC) [Mass/Vol] 34.0 g/dL Normal 29.9-35.2 [facility] Comment on above: Performed By: #### R ENAL, LIPID #### [facility] [address] [place] [address] Dr. Keeley Hoskins MCV (RBC) [Entitic vol] 82.2 fL Normal 81.0-99.0 [facility] Comment on above: Performed By: #### R ENAL, LIPID #### [facility] [address] [place] [address] Dr. Keeley Hoskins MONO # 0.5 103/ul Normal 0.3-0.8 [facility] Comment on above: Performed By: #### R ENAL, LIPID #### [facility] [address] [place] [address] Dr. Keeley Hoskins Monocytes/100 WBC (Bld) 6.6 % Normal 1.7-12.0 [facility] Comment on above: Performed By: #### R ENAL, LIPID #### [facility] [address] [place] [address] Dr. Keeley Hoskins NEUT # 4.4 103/ul Normal 1.4-6.5 [facility] Comment on above: Performed By: #### R ENAL, LIPID #### [facility] [address] [place] [address] Dr. Keeley Hoskins Neutrophils/100 WBC (Bld) 63.6 % Normal 43.0-75.0 [facility] Comment on above: Performed By: #### R ENLISSY, LIPID #### [facility] [address] [address] [address] Keeley Hoskins Platelet mean volume (Bld) [Entitic vol] 10.4 fL Normal 9.5-13.5 [facility] Comment on above: Performed By: #### R SEGUN, LIPID #### [facility] [address] [address] [address] Keeley Hoskins PLT 283 103/ul Normal 150-450 [facility] Comment on above: Performed By: #### R SEGUN, LIPID #### [facility] [address] [address] [address] Keeley Hoskins RBC 4.54 106/ul Normal 4.20-5.40 [facility] Comment on above: Performed By: #### R SEGUN, LIPID #### [facility] [address] [address] [address] Keeley Hoskins WBC 6.9 103/ul Normal 4.0-11.0 [facility] Comment on above: Performed By: #### R SEGUN, LIPID #### [facility] [address] [address] [address] Keeley Hoskins FREE THYROXINE INDEX T7on FTI 2.91 Normal 1.30-4.50 [facility] Comment on above: Performed By: #### R ENLISSY, LIPID #### [facility] [address] [place] [address] Dr. Keeley Hoskins T3U 30.0 % Normal 30.0-39.0 [facility] Comment on above: Performed By: #### R ENLISSY, LIPID #### [facility] [address] [address] [address] Keeley Hoskins T4 [Mass/Vol] 9.70 ug/dL Normal 4.80-13.90 [facility] Comment on above: Performed By: #### R ENLISSY, LIPID #### [facility] [address] [address] [address] Keeley Hoskins IRONon 03-16-2022 Iron [Mass/Vol] 72.0 ug/dL Normal 50.0-170.0 [facility] Comment on above: Performed By: #### I MARY #### [facility] [address] [address] [address] Keeley Hoskins PROF 14(COMP METB)on 022 Albumin [Mass/Vol] 3.9 g/dL Normal 3.4-5.0 [facility] Comment on above: Performed By: #### T 7, TSH, CMP, BNP #### [facility] [address] [address] [address] Keeley Hoskins Albumin/Globulin [Mass ratio] 1.1 {ratio} Normal [facility] Comment on above: Performed By: #### T 7, TSH, CMP, BNP #### [facility] [address] [place] [address] Dr. Keeley Hoskins ALP [Catalytic activity/Vol] 143 U/L Critically high 46-116 [facility] Comment on above: Performed By: #### T 7, TSH, CMP, BNP #### [facility] [address] [place] [address] Dr. Keeley Hoskins ALT [Catalytic activity/Vol] 43 U/L Normal 14-59 [facility] Comment on above: Performed By: #### T 7, TSH, CMP, BNP #### [facility] [address] [place] [address] Dr. Keeley Hoskins Anion gap [Moles/Vol] 15.6 mmol/L Normal [facility] Comment on above: Performed By: #### T 7, TSH, CMP, BNP #### [facility] [address] [place] [address] Dr. Keeley Hoskins AST [Catalytic activity/Vol] 23 U/L Normal 15-37 [facility] Comment on above: Performed By: #### T 7, TSH, CMP, BNP #### [facility] [address] [place] [address] Dr. Keeley Hoskins Bilirubin [Mass/Vol] 0.6 mg/dL Normal 0.2-1.0 [facility] Comment on above: Performed By: #### T 7, TSH, CMP, BNP #### [facility] [address] [place] [address] Dr. Keeley Hoskins Calcium [Mass/Vol] 9.2 mg/dL Normal 8.5-10.1 [facility] Comment on above: Performed By: #### T 7, TSH, CMP, BNP #### [facility] [address] [address] [address] Keeley Hoskins Chloride [Moles/Vol] 96 mmol/L Critically low 98-107 [facility] Comment on above: Performed By: #### T 7, TSH, CMP, BNP #### [facility] [address] [place] [address] Dr. Keeley Hoskins CO2 [Moles/Vol] 25.1 mmol/L Normal 21.0-32.0 [facility] Comment on above: Performed By: #### T 7, TSH, CMP, BNP #### [facility] [address] [place] [address] Dr. Keeley Hoskins Creatinine [Mass/Vol] 1.14 mg/dL Critically high 0.55-1.02 [facility] Comment on above: Performed By: #### T 7, TSH, CMP, BNP #### [facility] [address] [place] [address] Dr. Keeley Hoskins EGFR-AF CITIZEN [place] >60 Normal >=60 [facility] Comment on above: Performed By: #### T 7, TSH, CMP, BNP #### [facility] [address] [place] [address] Dr. Keeley Hoskins EGFR-NON AF CITIZEN OF [place] 52 mL/min/1.73m2 Critically low >=60 [facility] Comment on above: Performed By: #### T 7, TSH, CMP, BNP #### [facility] [address] [place] [address] Dr. Keeley Hoskins Globulin (S) [Mass/Vol] 3.4 g/dL Normal [facility] Comment on above: Performed By: #### T 7, TSH, CMP, BNP #### [facility] [address] [place] [address] Dr. Keeley Hoskins Glucose [Mass/Vol] 438 mg/dL Critically high 74-106 [facility] Comment on above: Performed By: #### T 7, TSH, CMP, BNP #### [facility] [address] [place] [address] Dr. Keeley Hoskins Potassium [Moles/Vol] 4.7 mmol/L Normal 3.5-5.1 [facility] Comment on above: Performed By: #### T 7, TSH, CMP, BNP #### [facility] [address] [place] [address] Dr. Keeley Hoskins Protein [Mass/Vol] 7.3 g/dL Normal 6.4-8.2 [facility] Comment on above: Performed By: #### T 7, TSH, CMP, BNP #### [facility] [address] [place] [address] Dr. Keeley Hoskins Sodium [Moles/Vol] 132 mmol/L Critically low 136-145 [facility] Comment on above: Performed By: #### T 7, TSH, CMP, BNP #### [facility] [address] [place] [address] Dr. Keeley Hoskins Urea nitrogen [Mass/Vol] 17.0 mg/dL Normal 7.0-18.0 [facility] Comment on above: Performed By: #### T 7, TSH, CMP, BNP #### [facility] [address] [place] [address] Dr. Keeley Hoskins Urea nitrogen/Creatinine [Mass ratio] 14.9 mg/mg Normal [facility] Comment on above: Performed By: #### T 7, TSH, CMP, BNP #### [facility] [address] [place] [address] Dr. Keeley Hoskins TSHon 03-16-2022 TSH 2.240 uIU/mL Normal 0.358-3.740 [facility] Comment on above: Performed By: #### R ENAL, LIPID #### [facility] [address] [place] [address] Dr. Keeley Hoskins KNEE RIGHT 3 [facility] KNEE RIGHT 3 [facility] Department of Radiology [address] [place] [id number] ===== Patient Name: SCAR JEFFREY : 1980 Sex: F Age: Race: White Pt. Location: Patient Status: O Ordered Date: 06/13/2021 9:05:00 AM Completed Date: 06/13/2021 09:13 AM Requesting Provider: TONYA CENTENO Attending Provider: TONYA CENTENO Report Copy To: Signs & Symptoms: M25.561 Pain in right knee I10 History: Comments: standing , Weight Bearing?: Y Exam: KNEE RIGHT 3 [facility] ===== KNEE RIGHT 3 [facility] 06/13/2021 9:13 AM CLINICAL INDICATIONS: M25.561 [...] pathology Electronically signed: Toyin Juan. Transcribed by: [email or web address], User Resident: Electronically Signed by: TOYIN JUAN @ 06/13/2021 11:03 AM Normal [facility] Comment on above: Order Comment: stand ing , Weight Bearing?: Y KNEE RIGHT 3 [facility] 1 KNEE RIGHT 3 [facility] Department of Radiology [address] [place] [id number] ===== Patient Name: SCAR JEFFREY : 1980 Sex: F Age: Race: White Pt. Location: Patient Status: O Ordered Date: 11/15/2020 10:15:00 AM Completed Date: 11/15/2020 10:33 AM Requesting Provider: TONYA CENTENO Attending Provider: TONYA CENTENO Report Copy To: Signs & Symptoms: M25.561 Pain in right knee I10 History: Burns Comments: evaluate Exam: KNEE RIGHT 3 [facility] ===== KNEE RIGHT 3 [facility] 11/15/2020 10:33 AM CLINICAL INDICATIONS: M25.561 Pain [...] reports Electronically signed: Naila Puentes. Transcribed by: [email or web address], User Resident: GREGG LEMONS Electronically Signed by: NAIAL PUENTES @ 11/15/2020 11:25 AM I personally read this/these film(s) with this resident Normal [facility] Comment on above: Order Comment: evalu ate TIBIA FIBULA RIGHTon 021 TIBIA FIBULA RIGHT [facility] Department of Radiology [address] [place] [phone] ===== Patient Name: SCAR JEFFREY : [...] abnormality. Electronically signed: Naila Puentes. Transcribed by: [email or web address], User Resident: Electronically Signed by: NAILA PUENTES @ 11/15/2020 11:37 AM Normal [facility] Comment on above: Order Comment: evalu ate Vital Signs Date Time Vital Sign Value Performing Clinician Facility 10-30-2024 10:00-0500 Body height 166.4 cm Zay Gonzalez MD Work Phone: [facility] 10-30-2024 10:00-0500 Body mass index (BMI) [Ratio] 40.81 kg/m2 Zay Gonzalez MD Work Phone: [facility] 10-30-2024 10:00-0500 Body weight 112.95 kg Zay Gonzalez MD Work Phone: [facility] 10-30-2024 10:00-0500 Diastolic blood pressure 68 mm[Hg] Zay Gonzalez MD Work Phone: [facility] 10-30-2024 10:00-0500 Heart rate 73 /min Zay Gonzalez MD Work Phone: [facility] 10-30-2024 10:00-0500 Respiratory rate 18 /min Zay Gonzalez MD Work Phone: [facility] 10-30-2024 10:00-0500 SaO2% (BldA) [Mass fraction] 97 % Zay Gonzalez MD Work Phone: [facility] 10-30-2024 10:00-0500 Systolic blood pressure 122 mm[Hg] Zay Gonzalez MD Work Phone: [facility] 10-21-2024 09:27-0500 Body height 166.4 cm Shara Metcalf MD Work Phone: [facility] 10-21-2024 09:27-0500 Body mass index (BMI) [Ratio] 42.28 kg/m2 Shara Metcalf MD Work Phone: [facility] 10-21-2024 09:27-0500 Body weight 117.03 kg Shara Metcalf MD Work Phone: [facility] 10-21-2024 09:27-0500 Diastolic blood pressure 63 mm[Hg] Shara Metcalf MD Work Phone: [facility] 10-21-2024 09:27-0500 Heart rate 82 /min Shara Metcalf MD Work Phone: [facility] 10-21-2024 09:27-0500 Systolic blood pressure 147 mm[Hg] Shara Metcalf MD Work Phone: [facility] 09-23-2024 13:49-0500 Blood Pressure Location Kobe NILL [facility] 09-23-2024 13:49-0500 Diastolic blood pressure 64 mm[Hg] Kobe NILL [facility] 09-23-2024 13:49-0500 Heart rate 72 /min Kobe NILL [facility] 09-23-2024 13:49-0500 Respiratory rate 16 /min Kobe NILL [facility] 09-23-2024 13:49-0500 Systolic blood pressure 146 mm[Hg] Kobe NILL [facility] 06-23-2024 10:10-0400 Body height 166.4 cm Zay Gonzalez MD Work Phone: [facility] 06-23-2024 10:10-0400 Body mass index (BMI) [Ratio] 59.16 kg/m2 Zay Gonzalez MD Work Phone: [facility] 06-23-2024 10:10-0400 Body weight 163.75 kg Zay Gonzalez MD Work Phone: [facility] 06-23-2024 10:10-0400 Diastolic blood pressure 60 mm[Hg] Zay Gonzalez MD Work Phone: [facility] 06-23-2024 10:10-0400 Heart rate 98 /min Zay Gonzalez MD Work Phone: [facility] 06-23-2024 10:10-0400 Respiratory rate 18 /min Zay Gonzalez MD Work Phone: [facility] 06-23-2024 10:10-0400 Systolic blood pressure 160 mm[Hg] Zay Gonzalez MD Work Phone: [facility] 06-03-2024 16:01-0400 Blood Pressure Location Kobe NILL [facility] 06-03-2024 16:01-0400 Diastolic blood pressure 70 mm[Hg] Kobe NILL [facility] 06-03-2024 16:01-0400 Heart rate 72 /min Kobe NILL [facility] 06-03-2024 16:01-0400 Respiratory rate 16 /min Kobe NILL [facility] 06-03-2024 16:01-0400 Systolic blood pressure 132 mm[Hg] Kobe NILL [facility] Encounters Encounter Date Encounter Type Care Provider Facility Start: 03-24-2025 ambulatory Kobe R NILL Facility :[facility] Start: 02-03-2025 ambulatory Castillo Rollins acility:[facility] Start: 01-30-2025 End: 01-30-2025 ambulatory ZAY GONZALEZ Not Available Start: 01-27-2025 End: 01-27-2025 ambulatory Kobe R NILL Facility:[facility] Start: 01-27-2025 End: 01-27-2025 Patient encounter procedure Kobe R NILL [facility] Start: 12-23-2024 End: 12-23-2024 ambulatory Kobe R NILL Facility:[facility] Start: 11-25-2024 End: 11-25-2024 ambulatory EMANUEL FIORE Not Available Start: 10-30-2024 End: 10-30-2024 Bamboo sumeet Gonzalez MD Work Phone: [facility] Start: 10-30-2024 End: 10-30-2024 Bamboo flowsheet Zay Gonzalez MD Work Phone: [facility] Start: 10-30-2024 End: 10-30-2024 Telephone encounter Zay Gonzalez MD Work Phone: [facility] Start: 10-30-2024 End: 10-30-2024 Office outpatient visit 40 minutes Zay Gonzalez MD Work Phone: [facility] Comment on above: Type [...] Start: 09-23-2024 End: 09-23-2024 ambulatory Kobe ROBERTSON Facility:[facility] Start: 09-23-2024 End: 09-23-2024 Patient encounter procedure Kobe Davidson CHINAL [facility] Start: 06-24-2024 End: 06-24-2024 ambulatory Kobe ATKINSONL Facility:[facility] Start: 06-24-2024 End: 06-24-2024 Patient encounter procedure Kobe Lety [facility]L [facility] Start: 06-23-2024 End: 06-23-2024 Bamboo flowsheet Zay Gonzalez MD Work Phone: [facility] Start: 06-23-2024 End: 06-23-2024 Bamboo flowsheet Zay Gonzalez MD Work Phone: [facility] Start: 06-23-2024 End: 06-23-2024 Office outpatient visit 40 minutes Zay Gonzalez MD Work Phone: [facility] Comment on above: Type 1 diabetes bar itus with hyperglycemia (HCC) ([facility]/HCC) (Primary Dx); Vitamin D deficiency; Encounter for dietary consultation; Insulin long-term use ([facility]); Microalbuminuria; Insulin pump in place; Encounter for fitting or adjustment of insulin pump; Primary hypertension ([facility]/HCC); 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 ([facility]/HCC) Start: 06-23-2024 End: 06-23-2024 ambulatory ZAY GONZALEZ Not Available Start: 06-18-2024 End: 06-18-2024 Lab Drop off Kobe Lety ATKINSONL [facility] Start: 06-18-2024 End: 06-18-2024 ambulatory Kobe ATKINSONL Facility[facility] Start: 06-18-2024 End: 06-18-2024 [facility] Start: 06-03-2024 End: 06-03-2024 ambulatory [facility]noz Cortez [facility] Start: 06-03-2024 End: 06-03-2024 Patient encounter procedure Kobe ROBERTSON [facility] Start: 01-22-2023 End: 01-23-[address] [...] Start: 10-15-2020 End: 11-01-2020 ambulatory TONYA CENTENO Facility:[facility] Procedures Date Procedure Procedure Detail Performing [...] procedure 01/30/2025 10:20 AM EDT Office Visit [facility] [address] [place] [id number] Zay Gonzalez MD [address] [place] [address] [facility] Start: 10-30-2024 End: 10-30-2024 Patient encounter procedure [facility] Comment on above: Arrived Start: 10-27-2024 End: 10-27-2024 Patient encounter procedure 10/27/2024 10:10 AM EST Office Visit [facility] [address] [place] [address] Zay Gonzalez MD [address] [place] [address] [facility] Start: 10-21-2024 End: 10-21-2024 Patient encounter procedure 10/21/2024 9:50 AM EST Office Visit [facility] [address] [facility] [address] [place] [id number] Shara Metcalf MD [address] [place] [address] Arrived [facility] Comment on above: Arrived Start: 06-23-2024 End: 06-23-2024 Patient encounter procedure 06/23/2024 10:40 AM EDT Office Visit [facility] [address] [place] [phone] Zay Gonzalez MD [address] [place] [address] Type 1 diabetes mellitus with hyperglycemia (HCC) (CMS/HCC) [facility] Comment on above: Type 1 diabetes bar itus with hyperglycemia (HCC) ([facility]/HCC) Payers Date Payer Category Payer Self-pay 2021 Private Health Insurance flower [id number] 2019 Medicare (Managed Care) [employer] [id number] 2017 Medicaid [id number] 1978 Unknown [id number] 2.16.840.1.294035.3.579.2. 647 1978 Unknown [id number] 2.16.840.1.671444.3.579.2. 593 1978 Unknown [id number] 2.16.840.1.120120.3.579.2. 593 1978 Unknown [id number] 2.16.840.1.490930.3.579.2. 593 1978 Unknown [id number] 2.16.840.1.815503.3.579.2. 593 1978 Unknown [id number] 2.16.840.1.569090.3.579.2. 593 1978 Unknown [id number] 2.16.840.1.355424.3.579.2. 593 1978 Unknown [id number] 2.16.840.1.044805.3.579.2. 593 1978 Unknown [id number] 2.16.840.1.075550.3.579.2. 59 1978 Unknown [id number] 2.16.840.1.402302.3.579.2. 593 1978 Unknown [id number] 2.16.840.1.198808.3.579.2. 72 1978 Unknown [id number] 2.16.840.1.785011.3.579.2. 72 1978 Unknown [id number] 2.16.840.1.467703.3.579.2 1978 Unknown [id number] 2.16.840.1.713289.3.579.2. 72 1978 Unknown [id number] 2.16.840.1.227626.3.579.2. 72 1978 Unknown [id number] 2.16.840.1.390612.3.579.2. 72 1978 Unknown [id number] 2.16.840.1.203566.3.579.2 1978 Unknown [id number] 1980 Unknown [id number] 1259 1980 Unknown [id number] 1259 1978 Unknown [id number] 1259 1978 Unknown [id number] 1259 1978 Unknown [id number] 1259 1961 Medicaid [id number] 1961 Private Health Insurance [id number] Unknown [id number] Social History Date Type Detail Facility Start: 06-03-2024 End: 01-27-2025 Tobacco smoking status Ex-smoker (finding) [facility] Tobacco smoking status Never [facility] Start: 01-23-2024 End: 10-30-2024 Sex Assigned At Female [facility] Start: 09-10-2005 End: 09-10-2016 History of tobacco use Current smoker [facility] Start: 09-10-2005 End: 09-10-2016 History of tobacco use Cigarette Smoker [facility] Start: 12-18-2023 End: 10-30-2024 Tobacco use and exposure Smokeless tobacco non-user [facility] Start: 06-12-2024 End: 10-30-2024 Alcoholic beverage intake Ex-drinker (finding) [facility] Start: 01-23-2024 End: 10-30-2024 History of Social function [facility] Start: 1980 Sex assigned at Not on file [facility] Sexual Orientation [facility] Start: 03-26-2019 Sex Female (finding) [facility] Medical Equipment Procedure Code Equipment Code Equipment Origin al Text Equipment Identifier Dates [id number] Start: 06-10-2024 End: 06-10-2025 TEST BLOOD SUGAR SIX TIMES DAILY [id number] Start: 10-29-2024 Functional Status Date Assessment Result Facility 01-27-2025 Functional Status N/A [facility] [place] 09-23-2024 Functional Status N/A [facility] [place] 06-03-2024 Functional Status N/A [facility] [place] Clinical Notes 04-17-2022 to 10-30-2024 Telephone Encounter - Jose Radha - 10/30/2024 11:18 AM ESTTelephone Encounter - Jose Garcia - 10/30/2024 11:18 AM Ev Gonzalez MD - 10/30/2024 9:50 AM EST Note Date & Type Note Facility 10-30-2024 Telephone encounter Note Please resend Dexcom G7 and kit to [facility] please and thank you! Omnipod 5 pods to [facility] as well. Thanks! [facility] 10-30-2024 Miscellaneous Notes Please resend Dexcom G7 and kit to [facility] please and thank you! Omnipod 5 pods to [facility] as well. Thanks! documented in this encounter [facility] 10-30-2024 History of Present illness Narrative [...] readings . wants to check her for [place]'s disease since her mother had it. Interim [...] 40 mg, Every 24 hours Continuous Glucose Magnetic Locater (Dexcom G7 Magnetic Locater) device 1 kit, Does not apply, Continuous [...] (ZOCOR) 20 mg, Nightly Vitamin D, Ergocalciferol, 27241 units capsule 1 tablet, Weekly ALLERGIES: Allergies Allergen Reactions Codeine Hydrocodone Throat swelling, vomiting Morphine GI intolerance vomiting Oxcarbazepine Other Reaction(s): tightness in chest Penicillin G Hives Penicillins Valproic Acid Other Reaction(s): Trouble Breathing Lamotrigine Rash Past Medical History: Diagnosis Date Anxiety Congestive heart failure (CHF) (CMS/HCC) Essential (primary) hypertension (CMS/HCC) Hypothyroid (CMS/HCC) nursing home (current) use of insulin (CMS/HCC) Migraine (CMS/HCC) [...] Type 1 diabetes mellitus with hyperglycemia (HCC) ([facility]) - POCT glycosylated hemoglobin (Hb A1C) [...] Encounter for dietary consultation Insulin long-term use ([facility]) Microalbuminuria Insulin pump in place Encounter for fitting or adjustment of insulin pump Primary hypertension ([facility]/HCC) 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) 08/19/2012 Dysthymia (CMS/[facility]) 08/19/2012 Epilepsy (CMS/[facility]) 08/19/2012 Insomnia 08/19/2012 Laryngopharyngeal reflux 12/18/2023 Mass of head 12/18/2023 Type 2 diabetes mellitus without complication ([facility]) 08/19/2012 Sleep apnea 12/18/2023 Sinusitis, chronic [...] Hypertension (CMS/HCC) 01/17/2024 Irritable bowel syndrome 01/17/2024 emt intermediate current use of insulin (CMS/[facility]) 01/17/2024 Migraine headache (CMS/[facility]) 01/17/2024 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 1 diabetes mellitus ([facility]) 01/17/2024 Nausea 01/17/2024 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 ([facility]) 01/17/2024 Obesity with body mass index 30 or greater 01/17/2024 Pain in joint of right shoulder 08/02/2020 Pain in right arm 08/02/2020 Pain in right knee 08/02/2020 Type 1 diabetes mellitus ([facility]) 01/17/2024 Seizure disorder ([facility]) 01/17/2024 Resolved Ambulatory Problems Diagnosis Date Noted Chronic laryngitis 12/18/2023 Past Medical History: Diagnosis Date Congestive heart failure (CHF) ([facility]) Essential (primary) hypertension ([facility]) Hypothyroid ([facility]) emt intermediate (current) use of insulin ([facility]) Migraine ([facility]) Presence of insulin pump (external) (internal) Proteinuria, unspecified Seizures ([facility]) Torn meniscus 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 ([facility]) Vitamin D deficiency, unspecified Past Surgical History: [...] day at the same time Continuous Glucose Magnetic Locater (Dexcom G7 Magnetic Locater) device 1 kit continuously 1 each 1 [...] by mouth at bedtime Vitamin D, Ergocalciferol, 33603 units capsule Take 1 tablet by mouth [...] No tx needed documented in this encounter [facility] 09-23-2024 Note General Surgery Offi ce/Clinic [...] (corpus and cervix) (more content not included)... [facility] Comment on above: Result Comment: Elec tronically [...] (ZOCOR) 20 mg, Nightly Vitamin D, Ergocalciferol, 59418 units capsule 1 tablet, Weekly ALLERGIES: Allergies Allergen Reactions Codeine Hydrocodone Throat swelling, vomiting Morphine GI intolerance vomiting Oxcarbazepine Other Reaction(s): tightness in chest Penicillin G Hives Penicillins Valproic Acid Other Reaction(s): Trouble Breathing Lamotrigine Rash Past Medical History: Diagnosis Date Anxiety Congestive heart failure (CHF) (CMS/HCC) Essential (primary) hypertension (CMS/HCC) Hypothyroid (CMS/HCC) emt intermediate (current) use of insulin (CMS/HCC) Migraine (CMS/HCC) Presence of insulin pump (external) (internal) Proteinuria, unspecified Seizures (CMS/HCC) Sleep apnea Torn meniscus 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 documented in this encounter [facility] 06-03-2024 Note General Surgery Offi ce/Clinic [...] chloride 10 mEq (more content not included)... [facility] Comment on above: Result Comment: Elec tronically [...] reported in a separate dictation. 5. A Luois Score was not calculated due to inability to achieve 85% of maximum predicted heart rate. [facility] Evaluation + Plan note Future Appointments Appointment Date:06/18/2024 03:00:00 PM Scheduled Provider:Kobe ROBERTSON MD Location:[facility] Appointment Type:[facility] Surgery [address] [place] [address] Evaluation + Plan note Future Appointments Appointment Date:06/24/2024 02:00:00 PM Scheduled Provider:Kobe ROBERTSON MD Location:[facility] Appointment Type: Established [address] [place] [address] Evaluation + Plan note Future Appointments Appointment Date:03/24/2025 01:40:00 PM Scheduled Provider:Kobe ROBERTSON MD Location:[facility] Appointment Type: Procedure [address] [place] [address] [facility] [place] Evaluation note Diagnosis Type 1 diabetes mellitus with hyperglycemia (HCC) ([facility]/HCC)- Primary Vitamin D deficiency Encounter for dietary consultation Insulin long-term use ([facility]/HCC) Encounter for long-term (current) use of [...] Type 1 diabetes mellitus with hyperglycemia (HCC) ([facility]/HCC)- Primary Vitamin D deficiency Encounter for dietary consultation Insulin long-term use ([facility]/HCC) Encounter for long-term (current) use of insulin Microalbuminuria Proteinuria Insulin pump in place Insulin pump status Encounter for fitting or adjustment of insulin pump Fitting and adjustment of insulin pump Primary hypertension (CMS/HCC) Unspecified essential hypertension 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 DATE CREATED AUTHOR AUTHOR'S ORGANIZ ATION 06/27/2024 [facility] DATE CREATED AUTHOR AUTHOR'S ORGANIZ ATION 09/03/2024 [facility] ical Center DATE CREATED AUTHOR AUTHOR'S ORGANIZ ATION 01/28/2025 [facility] DATE CREATED AUTHOR AUTHOR'S ORGANIZ ATION 02/05/2025 [facility] EPIC DATE CREATED AUTHOR AUTHOR'S ORGANIZ ATION 02/06/2025 [facility] Patient Care team informatio n (unrecognized section and content) Principal Statistical Programmer Relationship Specialty Start Date End Date Lorenzo Cortez MD [address] [place] [facility] [place] [address] PCP - General Family Medicine 12/18/23 Principal Statistical Programmer Relationship Specialty Start Date End Date Lorenzo Cortez MD [address] [place] [facility] [place] [address] PCP - General Family Medicine 12/18/23 Principal Statistical Programmer Relationship Specialty Start Date End Date Lorenzo Cortez MD [address] [place] [facility] [place] [address] PCP - General Family Medicine 12/18/23 Principal Statistical Programmer Relationship Specialty Start Date End Date Lorenzo Cortez MD [address] [place] [facility] [place] [address] PCP - General Family Medicine 12/18/23 Principal Statistical Programmer Relationship Specialty Start Date End Date Lorenzo Cortez MD [address] [place] [address] PCP - General Family Medicine 12/18/23 Principal Statistical Programmer Relationship Specialty Start Date End Date Lorenzo Cortez MD [address] [place] [facility] [place] [address] PCP - General Family Medicine 12/18/23 Reason [...] BE BASED ON THE PRIMARY CLINICAL RECORDS. [facility]. provides no warranty or guarantee of the accuracy or completeness of information in this document.
--- NOTE | 2025-03-12 09:00 | CA_ITS ---
Patient Name: YANICK JEFFREY MR#: [id number] : 1980 Exam Date: 03/12/2025 Ordering Doctor: DR LORENZO CARLSON . ECHOCARDIOGRAM REPORT PROCEDURE: CA ECHO DOPPLER COMPLETE INDICATIONS: Amaurosis fugax both eyes, hypertension, diabetes, former smoker COMPARISON: None. DESCRIPTION: COMPLETE ECHOCARDIOGRAM Real-time transthoracic echocardiography with 2D, M-mode, spectral and color flow Doppler performed. QUALITY: Technical quality was good. LEFT VENTRICLE: Normal chamber size. Moderate concentric left ventricular hypertrophy. D-shaped septum consistent with right ventricular pressure and/or volume overload. LV EF: Global left ventricular systolic function is hyperdynamic; visually estimated ejection fraction is 65 to 70%. No significant wall motion abnormalities. DIASTOLIC: Normal diastolic function. ATRIAL SEPTUM: Inadequately seen. LEFT ATRIUM: Normal chamber size. RIGHT ATRIUM: Normal chamber size. RIGHT VENTRICLE: Normal chamber size. Normal right ventricular systolic function. TRICUSPID VALVE: Normal mobility and thickness. No stenosis with no regurgitation. Unable to assess right-sided pressures due to lack of measurable tricuspid regurgitation. MITRAL VALVE: Normal mobility and thickness. No evidence of mitral valve stenosis. Mild mitral annular calcification. No mitral regurgitation. AORTIC VALVE: Normal trileaflet appearance. No visible sclerosis. Normal leaflet mobility. No evidence of aortic valve stenosis. No aortic regurgitation. AORTIC ROOT: Normal diameter and appearance. PULMONIC VALVE: Normal thickness and mobility. No stenosis. Trivial regurgitation. PERICARDIUM: Anterior free space; trivial effusion versus fat pad. IVC: Not well visualized. CONCLUSION: 1. Global left ventricular systolic function is hyperdynamic; visually estimated ejection fraction is 65 to 70% 2. D-shaped septum consistent with right ventricular pressure and/or volume overload 3. Normal right ventricular size and systolic function 4. Normal diastolic function 5. No significant valvular abnormalities 6. Anterior free space; trivial effusion versus fat pad Adult Echocardiography Procedure Report Left Ventricle LVEDD (3.7 - 5.6 cm): 4.33 cm LVESD (2.2 - 4.0 cm): 3.38 cm LVIVS thickness (0.6 - 1.2 cm): 1.57 cm LVPW thickness (0.5 - 1.0 cm): 1.34 cm e': 0.09 m/s E - e': 9.65 LVOT Max Gradient: 5.98 mm[Hg] LVOT Area (cm2): 1.22 m/s Peak Velocity (LVOT): 1.22 m/s Mean Velocity (LVOT): 0.88 m/s LVOT Diameter 1.98 cm Left Ventricular Ejection Fraction: 69.22 % Left Atrium LA Volume Index (2D A2C): 20.13 ml/m2 Left Atrium Systolic Dimension: 3.40 cm Mitral Valve MV E to A Ratio: 0.96 Mitral Valve A-Wave Peak Velocity: 0.87 m/s Mitral Valve E-Wave Peak Velocity: 0.84 m/s Right Ventricle Aorta AO Root Diam: 3.50 cm Aortic Valve AoV Area (Peak Shoaib): 2.52 cm2, 2.52 cm2 AoV Area (VTI): 2.77 cm2, 2.77 cm2 Peak Velocity(Antegrade Flow): 1.50 m/s Peak Gradient(Antegrade Flow): 8.97 mm[Hg] Mean Velocity(Antegrade Flow): 1.10 m/s Mean Gradient(Antegrade Flow): 5.46 mm[Hg] Velocity Time Integral: 30.23 cm Tricuspid Valve Pulmonic Valve Peak Gradient: 7.17 mm[Hg], 6.58 mm[Hg] Right Atrium Right Atrium Systolic Pressure: 43.12 ml, 43.12 ml Dictated by: Jackie Wooten M.D. on 03/12/2025 at 16:50 Approved by: Jackie Wooten M.D. on 03/12/2025 at 16:52
--- NOTE | 2025-03-12 09:20 | MM_ITS ---
Patient Name: YANICK JEFFREY MR#: [id number] : 1980 Exam Date: 03/12/2025 Ordering Doctor: DR LORENZO CARLSON . RADIOLOGY REPORT PROCEDURE: MM TOMOSYNTHESIS SCREENING BI COMPARISON: MM TOMOSYNTHESIS DIAGNOSTIC BI, 11/07/2023. INDICATIONS: Screening Calculator Name NCI Breast Cancer Risk Assessment Tool 5 Year Breast Cancer Risk 0.60% Lifetime Breast Cancer Risk 6.90% Personal Breast Cancer No Personal Ovarian Cancer No Treatments None Family Cancers None LOCATION: [facility] BREAST COMPOSITION: The breasts are extremely dense, which lowers the sensitivity of mammography. FINDINGS: DIAGNOSTIC CATEGORY 1--NEGATIVE. RIGHT BREAST: No significant suspicious finding. LEFT BREAST: No significant suspicious finding. RECOMMENDATIONS: ROUTINE MAMMOGRAM AND CLINICAL EVALUATION IN 12 MONTHS. PLEASE NOTE: A NORMAL MAMMOGRAM DOES NOT EXCLUDE THE POSSIBILITY OF BREAST CANCER. A CLINICALLY SUSPICIOUS PALPABLE LUMP SHOULD BE BIOPSIED. Dictated by: James Tyler DO on 03/12/2025 at 15:34 Approved by: James Tyler DO on 03/12/2025 at 15:37
== END 2025-03-12 08:38 | disposition home or self-care (01) ==
LOC: CARD 08:37
PROVIDERS: PCP Family Medicine; Visit Provider Family Medicine
DX: G45.3 Amaurosis fugax (principal); Z12.31 Encounter for screening mammogram for malignant neoplasm of breast; M85.88 Other specified disorders of bone density and structure, other site
CPT/HCPCS: 77063; 77067; 77080; 93306

== ENCOUNTER 2025-08-04 08:33 | Outpatient (OUT) | payer MEDICARE, MEDICAID, SELFPAY ==
--- OUTSIDE RECORDS SUMMARY | 2025-08-04 08:35 | XMS_ITS | Clinical Summary ---
Author Organization [employer] [facility] tem Address [id number] [address] [place] [address] Care Team Providers Care Skiagrapher Name Role Phone George Cortez MD Primary Care Provider [phone] Allergies Active AllergyReactionsCriticalityNoted NcbnEjemcsidDtihszp87/28/2022Divalproex 05/07/2022Fenofibric Acid (Choline)05/07/20221722Aomppfwqqyg33/09/2024 Throat swelling, vomiting VwryfrtiedqOprpHqy14/09/2024MorphineGI Eelezeqlupw97/28/2022 vomiting Pnbdnpdanlpfi22/09/2024 Other Reaction(s): tightness in chest NfjwduwyutcTilmk24/28/2022Valproic Acid12/18/2023 Other Reaction(s): Trouble Breathing Medications MedicationSigDispense QuantityRefillsLast FilledStart DateEnd DateStatus lisinopril-hydroCHLOROthiazide (PRINZIDE,ZESTORETIC) 20-25 mg per tablet Take 1 tablet by mouth 2 (two) times a day.Active sulfamethoxazole-trimethoprim (BACTRIM DS) 800-160 mg per tablet Take 1 tablet by mouth 2 (two) times a day.Active LORazepam (ATIVAN) 1 mg tablet Take 1 mg by mouth 3 (three) times a day as needed.Active gabapentin (NEURONTIN) 600 mg tablet Active terbinafine (LamISIL) 250 mg tablet Take 250 mg by mouth daily.Active metFORMIN (GLUCOPHAGE) 500 mg tablet Take 1,000 mg by mouth 2 (two) times a day with meals.Active losartan (COZAAR) 50 mg tablet Take 50 mg by mouth daily.Active risperiDONE (RisperDAL) 2 mg tablet Take 2 mg by mouth nightly.Active FREESTYLE TEST strip Active OMNIPOD INSULIN REFILL cartridge 03/26/2019Active famotidine (PEPCID) 20 mg tablet Active NOVOLOG U-100 INSULIN ASPART 100 unit/mL injection Active furosemide (LASIX) 80 mg tablet Take 80 mg by mouth daily.Active buPROPion XL (WELLBUTRIN XL) 300 mg 24 hr tablet Active potassium chloride (MICRO-K) 10 MEQ CR capsule Take 10 mEq by mouth 2 (two) times a day.Active omeprazole (PriLOSEC) 40 mg capsule Active ciprofloxacin HCl (CIPRO) 500 mg tablet Take 500 mg by mouth 2 (two) times a day.Active citalopram (CeleXA) 20 mg tablet Active VITAMIN D2 50,000 unit capsule Active levothyroxine (SYNTHROID, LEVOTHROID) 100 MCG tablet Take 100 mcg by mouth daily.Active levETIRAcetam (KEPPRA) 500 mg tablet Take 500 mg by mouth 2 (two) times a day.Active HUMULIN R U-500, CONC, INSULIN 500 unit/mL injection USE 450 UNITS PER INSULIN PUMP ONCE A HFG48209/15/2018Active Active Problems No known active problems Family History Medical HistoryRelationNameCommentsSkin cancerFatherLung cancerMaternal GrandfatherHeart diseasePaternal GrandfatherStomach cancerPaternal Grandmother RelationNameStatusCommentsFatherAliveMaternal GrandfatherDeceasedMotherAlive Paternal GrandfatherDeceasedPaternal GrandmotherDeceased Social History Tobacco UseTypesPacks/DayYears UsedDateSmoking Tobacco: LvryveTzxjoedqlq746.2 2003 - 12/09/2018Smokeless Tobacco: NeverAlcohol UseStandard Drinks/WeekComments Not Currently0 (1 standard drink = 0.6 oz pure alcohol)AUDIT-CAnswerDate RecordedFrequency of Alcohol ZzqmjmwplgpZoybe59/09/2019Average Number of Drinks Not on file04/18/2019Frequency of Binge DrinkingNot on file04/18/2019Childcare AnswerDate RlntxuezKyfygrnvtCztnbmr14/12/2019EmploymentAnswerDate Recorded UivaqsnivsUeilmvj51/12/2019Hunger ScreeningAnswerDate RecordedWithin the past 12 months we worried whether our food would run out before we got money to buy more.Never True04/21/2025Within the past 12 months the food we bought just didn't last and we didn't have money to get more.Never True04/21/2025Purpose - LifeAnswerDate RecordedPurpose and direction in afzoXbokxex13/11/2021 CommentsUnknownSex and Gender InformationValueDate RecordedSex Assigned at Not on fileLegal UchTkqphm43/06/2015 11:37 AM EDTGender IdentityNot on file Sexual OrientationNot on file Last Filed Vital Signs Vital SignReadingTime TakenCommentsBlood Npcgolmr092/67004/21/2025 12:44 AM EDT Weuyz207104/21/2025 12:44 AM NQPJrzetmmrkfy62 ??C (98.6 ??F)04/21/2025 12:44 AM EDTRespiratory Wgag935804/21/2025 12:44 AM EDTOxygen Vxmqprgkdo36%04/21/2025 12:44 AM EDTInhaled Oxygen Concentration--Qdiveh784.1 kg (245 lb)04/21/2025 12:44 AM SHUXheqgw265.4 cm (5' 5.5 )04/21/2025 12:44 AM EDTBody Mass Index40.15004/21/2025 12:44 AM EDT Plan of Treatment Health MaintenanceDue DateLast DoneCommentsDepression Wvxozfpym50/12/1991Adult BMI Follow Up Plan1996DTaP,Tdap and Td Vaccines (1 - Tdap)1997Pap Smear1999Influenza Azplbas42/11/2019Adult BMI Screening /08/2025Tobacco Ecmefuhzt86 Medical Devices Not on file Insurance [address] [id number] Care Teams Team MemberRelationshipSpecialtyStart Date George Cortez MD [address] [facility] [place] [address] PCP - GeneralFamily Medicine04/21/25
--- OUTSIDE RECORDS SUMMARY | 2025-08-04 08:35 | XMS_ITS | Encounter Summary ---
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
--- OUTSIDE RECORDS SUMMARY | 2025-08-04 08:35 | XMS_ITS | Clinical Summary ---
Author Organization [facility] Address [address] [place] [address] Care Team Providers Care Fire Prevention Officer Name Role Phone George Cortez MD Primary Care Provider [phone] Allergies Active AllergyReactionsCriticalityNoted YiddIyofcpwpIfdmvxx56/09/2024Hydrocodone 12/18/2023 Throat swelling, vomiting AhtuywdyjmxJzrnWxt37/09/2024MorphineGI zoxyxtmmrwk41/09/2024 vomiting Wxoeztrcyatdm50/09/2024 Other Reaction(s): tightness in chest Penicillin RTkdjv2712/18/20230001Ixolqpmetuo82/09/2024Valproic Acid12/18/2023 Other Reaction(s): Trouble Breathing Medications MedicationSigDispense QuantityRefillsLast FilledStart DateEnd DateStatus albuterol HFA (Ventolin HFA) 90 mcg/act inhaler Inhale 2 puffs every 6 (six) hours if neededActive citalopram (CeleXA) 20 MG tablet Take 40 mg by mouth 1 (one) time each day at the same timeActive levothyroxine (Synthroid) 100 MCG tablet Take 100 mcg by mouth in the morning. Take before meals.Active losartan (Cozaar) 50 MG tablet Take 100 mg by mouth 1 (one) time each day at the same timeActive potassium chloride CR (Klor-Con) 10 MEQ ER tablet 10 mEq in the morning and 10 mEq before bedtime.Active risperiDONE (RisperDAL) 2 MG tablet Take 4 mg by mouth DailyActive simvastatin (Zocor) 20 MG tablet Take 20 mg by mouth at bedtimeActive Vitamin D, Ergocalciferol, 73955 units capsule Take 1 tablet by mouth 1 (one) time per weekActive aspirin 81 MG EC tablet Take 81 mg by mouth DailyActive buPROPion XL (Wellbutrin XL) 300 MG 24 hr tablet Take 300 mg by mouth Daily Do not crush, chew, or split.Active famotidine (Pepcid) 20 MG tablet Take 20 mg by mouth DailyActive fluticasone-salmeterol (Advair) 230-21 MCG/ACT inhaler Inhale 2 puffs in the morning and 2 puffs before bedtime. Rinse mouth with water after use to reduce aftertaste and incidence of candidiasis. Do not swallow. Active furosemide (Lasix) 80 MG tablet Take 1 tablet by mouth DailyActive LORazepam (Ativan) 1 MG tablet Take 1 mg by mouth every 8 (eight) hoursActive omeprazole (PriLOSEC) [address] capsule Take 40 mg by mouth in the morning. Take before meals. Do not crush or chew. 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) CHANGE POD EVERY 24 HOURS DIRECTED 90 each 4Active glucose blood test strip Active amLODIPine (Norvasc) 5 MG tablet Take 5 mg by mouth DailyActive Continuous Glucose Pricing Coordinator (Dexcom G7 Pricing Coordinator) device Indications:Type 1 diabetes mellitus with hyperglycemia (HCC)1 kit continuously 1 each 5Active Continuous Glucose Sensor (Dexcom G7 Sensor) misc Indications:Type 1 diabetes mellitus with hyperglycemia (HCC)1 kit Every 10 (ten) days 9 each 5Active Insulin Disposable Pump (Omnipod 5 [id number] Intro Gen 5) kit Indications:Type 1 diabetes mellitus with hyperglycemia (HCC)USE DIRECTED 1 kit 5Active clopidogrel (Plavix) 75 MG tablet Take 75 mg by mouth DailyActive sacubitril-valsartan (Entresto) 49-51 MG tablet Take 1 tablet by mouth in the morning and 1 tablet before bedtime.Active glucose blood (Contour Next Test) test strip Indications: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 Take with meals. 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)USE 450 units TOTAL daily per insulin pump 20 mL 5Active Insulin Disposable Pump (Omnipod 5 MqvH5R2 Pods Gen 5) [facility] [place] Indications:Type 1 diabetes mellitus with hyperglycemia (HCC)Inject 1 Bar under the skin every other day 45 each Expired insulin regular (HumuLIN R) 500 UNIT/ML CONCENTRATED injection Indications: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)USE 450 units TOTAL daily per insulin pump 20 mL 110Discontinued Active Problems ProblemNoted DateDiagnosed DateAbdominal xmfuirhx31/09/0946Zrrztyz48/09/2024 Benign neoplasm of transverse colon01/17/2024iastasis of rectus abdominis 01/17/2024isorder of intervertebral disc of cervical spine01/17/2024Epidermoid cyst of face01/17/2024Epigastric pain01/17/2024Gastroesophageal reflux disease 01/17/2024Family history of malignant neoplasm of colon01/17/2024Hypertension 01/17/2024Irritable bowel fqxmrfry19/09/2024Long term current use of insulin 01/17/2024Migraine xojjyxwi32/09/2024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 1 diabetes votozppd37/09/0074Tttyum24/09/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 due to unstable diabetes mellitus type Obesity with body mass index 30 or ffgtass1701/17/2024Type 1 diabetes lptduwqh41/09/2024Seizure iqwatsow88/09/2024LAD (lymphadenopathy), qgybhpgh09/15/2024Chronic vdkfpnvynz08/09/2024 Laryngopharyngeal xokger8112/18/2023Mass of head12/18/2023Sleep apnea12/18/2023 Sinusitis, ozvcatr66/09/2024Pain in joint of right ejdmeqtu12/23/2020Pain in right arm08/02/2020Pain in right knee08/02/2020Bipolar I tvpqybyy31/11/2012 Disorder of nervous 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 2 diabetes moedvchr84/10/2012Dysthymia 08/19/20124593Jffmbcjw93/10/2563Xodsrakp13/10/2012Type 2 diabetes mellitus without waoccwudxthgu05/10/2012 Resolved Problems ProblemNoted DateDiagnosed DateResolved DateChronic hofemvivan29/09/2024 12/18/2023 Encounters DateTypeDepartmentCare YvxqOaidpwmcgzj79/11/2025Refill [facility] [address] [place] [id number] Zay Montiel MD 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)05/05/2025 10:10 AM EDTOffice Visit [facility] [address] [place] [phone] Zay Montiel MD 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); Vitamin D deficiency; Encounter for dietary consultation; Insulin long-term use (HCC); Microalbuminuria; Insulin pump in place; Encounter for fitting or adjustment of insulin pump; Primary hypertension ; Type 1 diabetes mellitus with hyperglycemia (HCC)05/05/2025Refill [facility] [address] [place] [phone] Helena Short LPN 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)05/05/2025 Bamboo flowsheet [facility] [address] [place] [address] Zay Montiel MD from Last 3 Months Family History Medical HistoryRelationNameCommentsCancerFatherHeart failureFatherHypertension FatherRelationNameStatusCommentsFather Social History Tobacco UseTypesPacks/DayYears UsedDateSmoking Tobacco: AucxepWsfqngahbh5438 - 2017Smokeless Tobacco: Never Tobacco Cessation:Counseling Given: Not Answered Alcohol UseStandard Drinks/WeekCommentsNot Currently0 (1 standard drink = 0.6 oz pure alcohol)CommentsUnknownSex and Gender InformationValueDate Recorded Sex Assigned at BirthNot on fileLegal ZuyLavear27/15/2023 6:44 PM EDTGender IdentityNot on fileSexual OrientationNot on file Last Filed Vital Signs Vital SignReadingTime TakenCommentsBlood Gemazefb506/6208 9:42 AM EDT Gbsfh302105/05/2025 9:42 AM EDTTemperature--Respiratory Zmzp978205/05/2025 9:42 AM EDTOxygen Oeqoeyqivz54%05/05/2025 9:42 AM EDTInhaled Oxygen Concentration-- Clcnma274 kg (247 lb)05/05/2025 9:42 AM AUMSzfbxw910.1 cm (5' 5 )05/05/2025 9:42 AM EDTBody Mass Index41. 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) from Last 3 Months Results * POCT glycosylated hemoglobin (Hb A1C) docked device (05/05/2025 9:49 AM EDT) ComponentValueRef RangeTest MethodAnalysis TimePerformed AtPathologist SignatureHemoglobin A1C7.5Specimen (Source)Anatomical Location / Laterality Collection Method / VolumeCollection TimeReceived TimeBloodVenous blood specimen / Zqeezgl4605/05/2025 9:49 AM EDT Narrative Authorizing ProviderResult TypeResult StatusBuena Vista Regional [facility] Center MDPOINT OF CARE TEST ENTER/EDIT ORDERABLESFinal Result * POCT glucose manually resulted (05/05/2025 9:49 AM EDT)ComponentValueRef Range Test MethodAnalysis TimePerformed AtPathologist SignatureGlucose Blood, EBT053 mg/dLSpecimen (Source)Anatomical Location / LateralityCollection Method / VolumeCollection TimeReceived TimeBloodCapillary blood specimen / Unknown 05/05/2025 9:49 AM EDT Narrative Authorizing ProviderResult TypeResult StatusAhOhio[facility] MDPOINT OF CARE TEST ENTER/EDIT ORDERABLESFinal Result from Last 3 Months Insurance * Guarantor: Scar Cortez TypeRelation to PatientDate of BirthPhone Billing AddressPersonal/KqwmckFlfg84/12/1981 [facility]/[address] [address] Care Teams Team MemberRelationshipSpecialtyStart DateEnd Date Hoy, George M, MD [address] [place] [phone] [facility]
--- OUTSIDE RECORDS SUMMARY | 2025-08-04 08:35 | XMS_ITS | Clinical Summary ---
Author Organization [facility] Address [address] [place] [address] Care Team Providers Care Recycling Assistant Name Role Phone Unavailable Primary Care Provider Unavailabl e Allergies Active AllergyReactionsCriticalityNoted OycsNtjharjiVamftww66/28/2022Divalproex 05/07/2022Fenofibric Acid (Choline)05/07/20223310Vafhsdmb73/28/2022Penicillins 05/07/2022 Medications MedicationSigDispense QuantityRefillsLast FilledStart DateEnd DateStatus albuterol 90 mcg/actuation inhaler Active aspirin 325 mg tablet Take 1 tablet every day by oral route for 30 days.08/02/2020Active buPROPion XL (Wellbutrin XL) 300 mg 24 hr tablet Take 1 tablet by mouth in the morning.Active citalopram (CeleXA) 20 mg tablet Take 1 tablet by mouth in the morning.Active furosemide (Lasix) 80 mg tablet Take 1 tablet by mouth in the morning.Active insulin regular (HumuLIN R U-500, Conc, Insulin) 500 unit/mL CONCENTRATED injection USE 450 UNITS ONCE A DAY PER INSULIN PUMPActive levETIRAcetam (Keppra) 500 mg tablet Take 1 tablet by mouth in the morning and at bedtime.Active levothyroxine (Synthroid, Levoxyl) 100 mcg tablet Take 1 tablet by mouth in the morning.Active LORazepam (Ativan) 1 mg tablet take 1 tablet by mouth three times a day if neededActive losartan (Cozaar) 50 mg tablet Take 1 tablet by mouth in the morning.Active meloxicam (Mobic) 15 mg tablet Take 1 tablet by mouth in the morning.Active metFORMIN (Glucophage) 500 mg tablet take 2 tablets by mouth twice a day with foodActive omeprazole (PriLOSEC) [address] capsule Take 1 capsule by mouth in the morning.Active potassium chloride ER (Micro-K) 10 mEq ER capsule Take 1 capsule by mouth in the morning and at bedtime.Active promethazine (Phenergan) 25 mg tablet take 1 tablet by mouth every 4 to 6 hours if needed for nauseaActive risperiDONE (RisperDAL) 2 mg tablet Take 1 tablet by mouth at bedtime.Active simvastatin (Zocor) 20 mg tablet Take 1 tablet by mouth in the morning.Active sucralfate (Carafate) 1 gram tablet Take 1 tablet by mouth in the morning, at noon, in the evening, and at bedtime. Active Active Problems ProblemNoted DateDiagnosed DatePain in right knee08/02/2020Pain in joint of right phmihdip92/23/2020Pain in right arm08/02/2020 Social History Tobacco UseTypesPacks/DayYears UsedDateSmoking Tobacco: Never AssessedUT Safety & EnvironmentAnswerDate RecordedFear of Current or Ex-PartnerNot on file 11/01/2023Emotionally AbusedNot on file11/01/2023hysically AbusedNot on file 11/01/2023Sexually AbusedNot on file11/01/2023hysically or Sexually AbusedNot on file11/01/2023CommentsUnknownSex and Gender InformationValueDate RecordedSex Assigned at BirthNot on fileLegal RxaWgynpw16/29/2022 9:29 PM EDT Gender IdentityNot on fileSexual OrientationNot on file Last Filed Vital Signs Vital SignReadingTime TakenCommentsBlood Pressure--Pulse--Temperature-- Respiratory Rate--Oxygen Saturation--Inhaled Oxygen Concentration--Bsamsc93.7 kg (200 lb)08/02/2020 5:07 PM BSYNhyvsn967.6 cm (5' 6 )06/13/2021 9:18 AM EDTBody Mass Index32.28110/02/2019 5:06 PM EST Plan of Treatment Health MaintenanceDue DateLast DoneCommentsCT Qwikshlxmbta83/12/1979Diabetes: Hemoglobin A1C1978FIT-DNA1978FIT1978FOBT1978Medicare Annual Wellness (AWV)1978 4828Jbdcxogneruqd59/12/1979Diabetes: Retinopathy Pgpxwhzkt35/12/1989Depression Fpprsgxtt09/12/1991Diabetes: Urine Protein Cuqzpdqbd21/12/1998Hepatitis B Vaccines (1 of 3 - 19+ 3-dose series)1997 Pap Smear1999Adult Prbqosp5909/21/2000Cervical Cancer Bzcxuxixq27/12/2009 HPV/Qrpofr8209/21/20080046Pzwinugkj58/12/2019Influenza Vaccine (#1)2025 07/13/2020Zoster Vaccines (1 of 2)09/21/20285738Djifvzoczrn20 Colorectal Cancer Ytsvriydp14/29/2031HIB VaccinesAged OutNo longer eligible based on patient's age to complete this topicHPV VaccinesAged OutNo longer eligible based on patient's age to complete this topicIPV VaccinesAged OutNo longer eligible based on patient's age to complete this topicMeningococcal B VaccineAged OutNo longer eligible based on patient's age to complete this topic Meningococcal VaccineAged OutNo longer eligible based on patient's age to complete this topicPneumococcal Vaccine: Pediatrics (0 to 5 Years) and At-Risk Patients (6 to 64 Years)Aged OutNo longer eligible based on patient's age to complete this topicRotavirus VaccinesAged OutNo longer eligible based on patient's age to complete this topic Insurance
--- NOTE | 2025-08-04 08:36 | MR_ITS ---
The [address] [address] Patient Name: YANICK JEFFREY MRN: [id number] date: 1980 Sex: F Assigned Patient Location: MRI Current Patient Location: MRI Accession/Order Number: [id number] Exam Date: 08/04/2025 09:35 Report Date: 08/04/2025 14:28 At the request of: LORENZO CARLSON MD Procedure: MR head/brain wo con MR head/brain wo con 08/04/2025 10:17 AM SIGN AND SYMPTOMS: ^Stroke, bilateral hand weakness PROTOCOL: Multiplanar multisequence MR images of the brain without IV contrast COMPARISON: 02/27/2025 FINDINGS: Extra axial spaces: Age appropriate. Hemorrhage: None. Ventricular system: The ventricles remain colpocephalic. Basal cisterns: Within normal limits and not effaced. 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 Midline shift: None.. Cerebellum: Within normal limits. Brainstem: Within normal limits. OTHER: Calvarium: Normal marrow signal. Vascular system: Satisfactory flow voids within the anterior and posterior circulation. Visualized Paranasal sinuses: Within normal limits. Visualized Orbits: Within normal limits. Visualized upper cervical spine: Within normal limits. Sella and skull base: Within normal limits. MR/MR head/brain wo con IMPRESSION: No acute intracranial pathology or significant interval change when compared to the prior study. 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 The ventricles remain colpocephalic. Impression dictated by: Jim Rico M.D. 08/04/2025 2:28 PM Dictation Location: [place] [address] Electronically authenticated by: [id number] Date: 08/04/2025 14:28
--- OUTSIDE RECORDS SUMMARY | 2025-08-04 08:38 | XMS_ITS | CCD ---
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 Muro.total/Cholesterol in HDL [Mass ratio]4.7 {ratio} NormalThe [facility] HospitalComment on above:Performed By: #### RENAL, LIPID #### [facility] [address] [address] [address] Keeley Denis NORMAL> or = 60 mg/dl - LOW CARDIOVASCULAR RISK <40 mg/dl - HIGH CARDIOVASCULAR RISKCoshocton Regional Medical CenterComment on above:Performed By: #### RENAL, LIPID #### [facility] [address] [place] [address] Dr. Keeley Moy CALC NORMALSEE [facility] HospitalCommunising memorial hospital on above:Result Comment: <100 mg/dl OPTIMAL 100 - 129 mg/dl NEAR OR ABOVE OPTIMAL 130 - 159 mg/dl BORDERLINE HIGH 160 - 189 mg/dl HIGH >190 mg/dl VERY HIGH Performed By: #### RENAL, LIPID #### [facility] [address] [place] [address] Dr. Keeley HoskinsTriglyceride [Mass/Vol]204 mg/dLCritically high<=150The [facility] on above:Performed By: #### RENAL, LIPID #### [facility] [address] [place] [address] Dr. Keeley Torres CALC40.8 mg/dLCoshocton Regional Medical CenterCommunising memorial hospital on above: Performed By: #### RENAL, LIPID #### [facility] [address] [place] [address] Dr. Keeley Goel CREAT RATIO RANDOMon 65-75-6413fXHR4.3 mg/LNormal<=30.0 The [facility] HospitalCommunising memorial hospital on above:Performed By: #### MCRR #### [facility] [address] [place] [address] Dr. Keeley Hughes CR PHIBX106.0 mg/gCritically high0.0-29.9[facility] CenterCommunising memorial hospital on above:Performed By: #### MCRR #### [facility] [address] [place] [address] Dr. Keeley Hughes CR RATIO RANGESEE [facility] HospitalCommunising memorial hospital on above:Result Comment: NO MICROALBUMINURIA 0-29 MG/G CLINICAL MICROALBUMINURIA 30-300 MG/G MACROALBUMINURIA >300 MG/GPerformed By: #### MCRR #### [facility] [address] [address] [address] Keeley Vaz CREAT17.81 mg/dLCritically low20.00-300.00The [facility] HospitalComment on above:Performed By: #### MCRR #### [facility] [address] [address] [address] Keeley BermudezAL FUNCTION PANELon 56-37-5149Xnidiad [Mass/Vol]4.2 g/dLNormal 3.4-5.0The [facility] HospitalComment on above:Performed By: #### RENAL, LIPID #### [facility] [address] [address] [address] Keeley HoskinsCalcium [Mass/Vol]9.2 mg/dLNormal8.5-10.1The [facility] Comment on above:Performed By: #### RENAL, LIPID #### [facility] [address] [address] [address] Keeley HoskinsChloride [Moles/Vol]98 mmol/YAdkski91-964Vcx [facility] Comment on above:Performed By: #### RENAL, LIPID #### [facility] [address] [address] [address] Keeley HoskinsCO2 [Moles/Vol]28.6 mmol/USezsbe81.0-32.0The [facility] Comment on above:Performed By: #### RENAL, LIPID #### [facility] [address] [address] [address] Keeley HoskinsCreatinine [Mass/Vol]1.17 mg/dLCritically high0.55-1.02The [facility] Hospitalment on above:Performed By: #### RENAL, LIPID #### [facility] [address] [address] [address] Mina ChangEGFR-AF AZERBAIJANI>60Normal>=60The [facility] HospitalComment on above:Performed By: #### RENAL, LIPID #### [facility] [address] [address] [address] Mina ChangEGFR-NON AF FPBZYTLO55 mL/min/1.26e8Ffecnxrsll low>=60The [facility] HospitalComment on above:Performed By: #### RENAL, LIPID #### [facility] [address] [place] [address] Dr. Keeley HoskinsGlucose [Mass/Vol]212 mg/dLCritically fipg55-672Jle [facility] HospitalComment on above:Performed By: #### RENAL, LIPID #### [facility] [address] [place] [address] Dr. Keeley HoskinsPhosphate [Mass/Vol]4.0 mg/dLNormal2.6-4.7The [facility] Comment on above:Performed By: #### RENAL, LIPID #### [facility] [address] [place] [address] Dr. Keeley HoskinsPotassium [Moles/Vol]4.1 mmol/LNormal3.5-5.1[facility] Comment on above:Performed By: #### RENAL, LIPID #### [facility] [address] [place] [address] Dr. Keeley HoskinsSodium [Moles/Vol]136 mmol/TNlbhmb748-962KhnPremier Health Atrium [facility] Center Comment on above:Performed By: #### RENAL, LIPID #### [facility] [address] [place] [address] Dr. Keeley HoskinsUrea nitrogen [Mass/Vol]16.0 mg/dLNormal7.0-18.0[facility] CenterComment on above:Performed By: #### RENAL, LIPID #### [facility] [address] [place] [address] Dr. Keeley HoskinsVITAMIN D 25 OHon 36-54-2286DDT D 25-OH33.8 ng/mLNormalPremier Health Atrium Medical CenterComment on above:Performed By: #### VITAD #### [facility] [address] [place] [address] Dr. Keeley QUIROSSEE BELOWNoSelect Medical OhioHealth Rehabilitation Hospital - DublinComment on above: Result Comment: <20 ng/mL Vit D deficient 20 - <30 ng/mL Vit D insufficient 30 - 100 ng/mL Vit D sufficient >100 ng/mL Potential ToxicityPerformed By: #### VITAD #### [facility] [address] [place] [address] Dr. Keeley Rockwell 52-61-5688Lvhronsajoc peptide B (Bld) [Mass/Vol]20.0 pg/mL Normal<=450.0The [facility] HospitalComment on above:Performed By: #### T7, TSH, CMP, BNP #### [facility] [address] [place] [address] Dr. Keeley Rachel AUTO DIFFon 07-90-8566ZLLI #0.1 103/ulNormal0.0-0.1The [facility] HospitalComment on above:Performed By: #### RENAL, LIPID #### [facility] [address] [place] [address] Dr. Keeley HoskinsBasophils/100 WBC (Bld)1.0 %Normal0.2-2.0[facility] Comment on above:Performed By: #### RENAL, LIPID #### [facility] [address] [place] [address] Dr. Keeley Jovel #0.1 103/ulNormal0.0-0.7The [facility] HospitalComment on above: Performed By: #### RENAL, LIPID #### [facility] [address] [place] [address] Dr. Keeley Pinoosinophils/100 WBC (Bld)1.8 %Normal0.9-7.0[facility] Comment on above:Performed By: #### RENAL, LIPID #### [facility] [address] [place] [address] Dr. Keeley Pinorythrocyte distribution width (RBC) [Ratio]12.3 %Ezglrl96.0-15.0 The [facility] HospitalComment on above:Performed By: #### RENAL, LIPID #### [facility] [address] [place] [address] Dr. Keeley HoskinsHematocrit (Bld) [Volume fraction]37.3 %Arjjyr32.0-48.0The [facility] HospitalComment on above:Performed By: #### RENAL, LIPID #### [facility] [address] [address] [address] Keeley HoskinsHemoglobin (Bld) [Mass/Vol]12.7 g/eBQhrlvg30.0-16.0The [facility] HospitalComment on above:Performed By: #### RENAL, LIPID #### [facility] [address] [address] [address] Keeley Elizabeth #0.04 10e3/ulCritically high0.00-0.03The [facility] Comment on above:Performed By: #### RENAL, LIPID #### [facility] [address] [place] [address] Dr. Keeley Elizabeth %0.6 %Critically high0.0-0.5The [facility] HospitalComment on above:Performed By: #### RENAL, LIPID #### [facility] [address] [place] [address] Dr. Keeley Munoz #1.8 103/ulNormal1.2-3.8The [facility] HospitalComment on above:Performed By: #### RENAL, LIPID #### [facility] [address] [place] [address] Dr. Keeley Goodehocytes/100 WBC (Bld)26.4 %Hkmvbt34.5-60.0The [facility] HospitalComment on above:Performed By: #### RENAL, LIPID #### [facility] [address] [place] [address] Dr. Keeley ValdezUAL DIFF REQNONormalThe [facility] HospitalComment on above: Performed By: #### RENAL, LIPID #### [facility] [address] [place] [address] Dr. Keeley Camarillo (RBC) [Entitic mass]28.0 fvUkdxrn71.7-34.0The [facility] HospitalComment on above:Performed By: #### RENAL, LIPID #### [facility] [address] [place] [address] Dr. Keeley Camarillo (RBC) [Mass/Vol]34.0 g/lUOqjlof50.9-35.2The [facility] HospitalComment on above:Performed By: #### RENAL, LIPID #### [facility] [address] [place] [address] Dr. Keeley CamarilloV (RBC) [Entitic vol]82.2 hESjsyvs21.0-99.0The [facility] HospitalComment on above:Performed By: #### RENAL, LIPID #### [facility] [address] [place] [address] Dr. Keeley Delgadillo #0.5 103/ulNormal0.3-0.8The [facility] HospitalComment on above:Performed By: #### RENAL, LIPID #### [facility] [address] [place] [address] Dr. Keeley Maciasocytes/100 WBC (Bld)6.6 %Normal1.7-12.0The [facility] Comment on above:Performed By: #### RENAL, LIPID #### [facility] [address] [place] [address] Dr. Keeley Anthony #4.4 103/ulNormal1.4-6.5The [facility] HospitalComment on above:Performed By: #### RENAL, LIPID #### [facility] [address] [place] [address] Dr. Keeley Mortensenutrophils/100 WBC (Bld)63.6 %Vanlck67.0-75.0The [facility] HospitalComment on above:Performed By: #### RENAL, LIPID #### [facility] [address] [place] [address] Dr. Keeley Santanalet mean volume (Bld) [Entitic vol]10.4 fLNormal9.5-13.5The [facility] HospitalComment on above:Performed By: #### RENAL, LIPID #### [facility] [address] [place] [address] Dr. Keeley HoskinsPLT283 103/mdPhjwjd529-712Txd [facility] HospitalComment on above: Performed By: #### RENAL, LIPID #### [facility] [address] [place] [address] Dr. Keeley HoskinsRBC4.54 106/ulNormal4.20-5.40The [facility] HospitalComment on above:Performed By: #### RENAL, LIPID #### [facility] [address] [place] [address] Dr. Keeley HoskinsWBC6.9 103/ulNormal4.0-11.0The [facility] HospitalComment on above: Performed By: #### RENAL, LIPID #### [facility] [address] [place] [address] Dr. Keeley Samayoa THYROXINE INDEX T7on 75-32-2065ASS7.49Jxvawd8.30-4.50The [facility] HospitalComment on above:Performed By: #### RENAL, LIPID #### [facility] [address] [place] [address] Dr. Keeley HoskinsT3U30.0 %Higyxk27.0-39.0The [facility] HospitalComment on above: Performed By: #### RENAL, LIPID #### [facility] [address] [place] [address] Dr. Keeley HoskinsT4 [Mass/Vol]9.70 ug/dLNormal4.80-13.90The [facility] Comment on above:Performed By: #### RENAL, LIPID #### [facility] [address] [place] [address] Dr. Keeley Jaimes 36-65-2836Kpau [Mass/Vol]72.0 ug/rZMehtqg75.0-170.0The [facility] HospitalComment on above:Performed By: #### IRON #### [facility] [address] [place] [address] Dr. Keeley HoskinsPROAyo 14(COMP METB)on 09-78-9430Qxsudih [Mass/Vol]3.9 g/dLNormal 3.4-5.0The [facility] HospitalComment on above:Performed By: #### T7, TSH, CMP, BNP #### [facility] [address] [place] [address] Dr. Keeley HoskinsAlbumin/Globulin [Mass ratio]1.1 {ratio}NormalThe [facility] HospitalComment on above:Performed By: #### T7, TSH, CMP, BNP #### [facility] [address] [place] [address] Dr. Keeley Whalne [Catalytic activity/Vol]143 U/LCritically pfxm37-008Xdj [facility] HospitalComment on above:Performed By: #### T7, TSH, CMP, BNP #### [facility] [address] [place] [address] Dr. Keeley Devlin [Catalytic activity/Vol]43 U/WZsdqdh89-69Hzu [facility] HospitalComment on above:Performed By: #### T7, TSH, CMP, BNP #### [facility] [address] [place] [address] Dr. Keeley Polanco gap [Moles/Vol]15.6 mmol/LNormalThe [facility] Comment on above:Performed By: #### T7, TSH, CMP, BNP #### [facility] [address] [place] [address] Dr. Keeley Moran [Catalytic activity/Vol]23 U/KBafzzb51-42Vbd [facility] HospitalComment on above:Performed By: #### T7, TSH, CMP, BNP #### [facility] [address] [place] [address] Dr. Keeley HoskinsBilirubin [Mass/Vol]0.6 mg/dLNormal0.2-1.0The [facility] Comment on above:Performed By: #### T7, TSH, CMP, BNP #### [facility] [address] [place] [address] Dr. Keeley HoskinsCalcium [Mass/Vol]9.2 mg/dLNormal8.5-10.1[facility] Comment on above:Performed By: #### T7, TSH, CMP, BNP #### [facility] [address] [place] [address] Dr. Keeley HoskinsChloride [Moles/Vol]96 mmol/LCritically hfn18-154Uch [facility] HospitalComment on above:Performed By: #### T7, TSH, CMP, BNP #### [facility] [address] [place] [address] Dr. Keeley HoskinsCO2 [Moles/Vol]25.1 mmol/MTkawfi34.0-32.0The [facility] Comment on above:Performed By: #### T7, TSH, CMP, BNP #### [facility] [address] [address] [address] Keeley HoskinsCreatinine [Mass/Vol]1.14 mg/dLCritically high0.55-1.02The [facility] HospitalComment on above:Performed By: #### T7, TSH, CMP, BNP #### [facility] [address] [address] [address] Mina ChangEGFR-AF AZERBAIJANI>60Normal>=60The [facility] HospitalComment on above:Performed By: #### T7, TSH, CMP, BNP #### [facility] [address] [address] [address] Keeley PinoGFR-NON AF XTWKUYUL17 mL/min/1.95u1Kgdczilwqs low>=60The [facility] HospitalComment on above:Performed By: #### T7, TSH, CMP, BNP #### [facility] [address] [address] [address] Keeley HoskinsGlobulin (S) [Mass/Vol]3.4 g/dLNormalThe [facility] HospitalComment on above:Performed By: #### T7, TSH, CMP, BNP #### [facility] [address] [address] [address] Keeley HoskinsGlucose [Mass/Vol]438 mg/dLCritically tarb42-502Dgq [facility] HospitalComment on above:Performed By: #### T7, TSH, CMP, BNP #### [facility] [address] [address] [address] Keeley HoskinsPotassium [Moles/Vol]4.7 mmol/LNormal3.5-5.1The [facility] Comment on above:Performed By: #### T7, TSH, CMP, BNP #### [facility] [address] [place] [address] Dr. Keeley HoskinsProtein [Mass/Vol]7.3 g/dLNormal6.4-8.2The [facility] Comment on above:Performed By: #### T7, TSH, CMP, BNP #### [facility] [address] [place] [address] Dr. Keeley HoskinsSodium [Moles/Vol]132 mmol/LCritically abu293-808Kvn [facility] HospitalComment on above:Performed By: #### T7, TSH, CMP, BNP #### [facility] [address] [place] [address] Dr. Keeley HoskinsUrea nitrogen [Mass/Vol]17.0 mg/dLNormal7.0-18.0The [facility] HospitalComment on above:Performed By: #### T7, TSH, CMP, BNP #### [facility] [address] [place] [address] Dr. Keeley Tate nitrogen/Creatinine [Mass ratio]14.9 mg/mgNormalThe [facility] HospitalComment on above:Performed By: #### T7, TSH, CMP, BNP #### [facility] [address] [place] [address] Dr. Keeley Worthy 39-94-9584MSR7.240 uIU/mLNormal0.358-3.740The [facility] HospitalComment on above:Performed By: #### RENAL, LIPID #### [facility] [address] [place] [address] [address] 40-04-7464VGPG[address] Department of Radiology [address] [place] [id number] Patient Name: YANICK CORTEZ : 1980 Sex: F Age: Race: White Pt. Location: Patient Status: O Ordered Date: 06/13/2021 9:05:00 AM Completed Date: 06/13/2021 09:13 AM Requesting Provider: TONYA CENTENO Attending Provider: TONYA CENTENO Report Copy To: Signs & Symptoms: M25.561 Pain in right knee I10 History: Comments: standing , Weight Bearing?: Y Exam: KNEE RIGHT 3 [facility] KNEE RIGHT 3 [facility] 06/13/2021 9:13 AM CLINICAL INDICATIONS: M25.561 [...] pathology Electronically signed: Toyin Juan. Transcribed by: [email or web address], User Resident: Electronically Signed by: TOYIN JUAN @ 06/13/2021 11:03 AMNMercy Health Lorain HospitalComment on above:Order Comment: standing , Weight Bearing?: YKNEE RIGHT 3 [facility] 63-30-5968XGJE RIGHT 3 [facility] CALIFORNIAniWVUMedicine [facility] Department of Radiology [address] [place] [id number] Patient Name: YANICK CORTEZ : 1980 Sex: F Age: Race: White Pt. Location: 84 Patient Status: O Ordered Date: 11/15/2020 10:15:00 AM Completed Date: 11/15/2020 10:33 AM Requesting Provider: TONYA CENTENO Attending Provider: TONYA CENTENO Report Copy To: Signs & Symptoms: M25.561 Pain in right knee I10 History: Delicia Comments: evaluate Exam: KNEE RIGHT 3 [facility] KNEE RIGHT 3 S 11/15/2020 10:33 AM [...] lateral tibial condyle. Consider cross-sectional imaging. Approved by:Shelbi Tai11/15/2020 11:22 AM. I, Naila Kincaid,have reviewed the images and reports Electronically signed: Naila Kincaid. Transcribed by: [email or web address], User Resident: SHELBI LEMONS Electronically Signed by: NAILA KINCAID @ 11/15/2020 11:25 AM I personally read this/these film(s) with this residentMemorial HospitalComment on above:Order Comment: evaluateTIBIA FIBULA RIGHT on 42-71-0708PZQBE FIBULA RIGHTAultman Alliance Community Hospital Department of Radiology [address] [place] [id number] Patient Name: YANICK CORTEZ : 1980 Sex: F Age: Race: White Pt. Location: 82 Patient Status: O Ordered Date: 11/15/2020 9:55:00 AM Completed Date: 11/15/2020 10:33 AM Requesting Provider: TONYA CENTENO Attending Provider: TONYA CENTENO Report Copy To: Signs & Symptoms: S82.142A Displaced bicondylar fracture of right tibia, init I10 History: Badin Comments: evaluate Exam: TIBIA FIBULA RIGHT Addendum Begins Osseous irregularity of the lateral tibial plateau concerning for fracture, please refer to separately dictated knee radiograph. Electronically signed: Naila Kincaid. Addendum Ends TIBIA FIBULA RIGHT CLINICAL INFORMATION: Patient complains of right knee and right tibia pain since 07/2020. VIEWS: AP(PA) and Lateral views were obtained. COMPARISON: None. IMPRESSION: 1. No fracture or other acute osseous abnormality. Electronically signed: Naila Kincaid. Transcribed by: [email or web address], User Resident: Electronically Signed by: NAILA KINCAID @ 11/15/2020 11:37 AMNMercy Health Lorain HospitalComment on above:Order Comment: evaluate Vital Signs Date TimeVital SignValuePerforming IjjfmvdyuOqsadxzk39-86-4282 09:42-0400Body hhihdg569.1 Zack Montiel MD Work Phone: [facility] CenterXvftkfhusy14-69-0686 09:42-0400Body mass index (BMI) [Ratio]41.1 kg/b6IjxinZay Montiel MD Work Phone: [facility] CenterEuproiotpb96-45-8081 09:42-0400Body iscdwa243.04 kgZay Montiel MD Work Phone: [address] [place], [place] [address]Pkhyboosff06-63-5667 09:42-0400Diastolic blood ackabbfr38 mm[Hg]Zay Montiel MD Work Phone: [phone] [place], [place] [address]Ugvqccvvcf08-47-5732 09:42-0400Heart rate83 /min Zay Montiel MD Work Phone: [phone] [place], [place] [address]Mbfaackehg83-20-1271 09:42-0400Respiratory rate18 /minZay Montiel MD Work Phone: [phone] [place], [place] [address]Ooywkvmxkd98-03-9239 09:42-9835UkC6% (BldA) [Mass fraction]96 %Zay Montiel MD Work Phone: [phone] [place], [place] [address]Nbyxhkxrkb64-71-8683 09:42-0400Systolic blood zbtcxeix713 mm[Hg]Zay Montiel MD Work Phone: [phone] [place], [place] [address]Wncdeccbhr06-28-6774 10:00-0500Body qgyspf651.4 Zack Montiel MD Work Phone: [phone] [place], [place] 2074602-20-2025 10:00-0500Body mass index (BMI) [Ratio]40.81 kg/i6LdcteZay Montiel MD Work Phone: 1(435)[facility] [place], [place] [address]Kcsbwyzovg36-47-2656 10:00-0500Body .95 kgZay Montiel MD Work Phone: 1(548)150-[address] [place], [place] [address]Qffuulevkb18-81-8587 10:00-0500Diastolic blood zjokzlvc71 mm[Hg]Zay Montiel MD Work Phone: 1(100)039-[address] [place], [place] [address]Wzpxcqtdbc36-07-0787 10:00-0500Heart rate73 /min Zay Montiel MD Work Phone: 1(867)099-[address] [place], [place] [address]Aurdzxoebw11-63-9844 10:00-0500Respiratory rate18 /minZay Montiel MD Work Phone: 1(175)301-[address] [place], [place] [address]Pypcfommtr77-25-7790 10:00-0641HbE6% (BldA) [Mass fraction]97 %Zay Montiel MD Work Phone: [facility] CenterWvpukknosb43-66-3699 10:00-0500Systolic blood jrawokht006 mm[Hg]Zay Montiel MD Work Phone: [facility] CenterIrnbcikvvc92-12-7039 09:27-0500Body ruccfp138.4 cmThalia Metcalf MD Work Phone: [facility] CenterZaffnfjsjf70-41-0940 09:27-0500Body mass index (BMI) [Ratio]42.28 kg/s0KqeqrsThalia Metcalf MD Work Phone: [facility] CenterLidnndlluv46-05-0326 09:27-0500Body mgsreb456.03 kgThalia Metcalf MD Work Phone: 1(169)[facility] HospitalSaint [facility] CenterCpuwdikulb63-43-3026 09:27-0500Diastolic blood ddhttjpi21 mm[Hg]Thalia Metcalf MD Work Phone: [facility] CenterJkwhbfdqro60-84-0673 09:27-0500Heart rate82 /min Thalia Metcalf MD Work Phone: [facility] CenterLmhvjfhkqm05-67-9307 09:27-0500Systolic blood ugdcmotl287 mm[Hg]Thalia Metcalf MD Work Phone: [facility] CenterEwecxyoivr83-26-6071 13:49-0500Blood Pressure LocationMichael NILL 249-5051Ihakrl-HjolrWood [facility] [place] 09-23-2024 13:49-0500Diastolic blood mm[Hg]Kobe NILJasson [phone]-RgblsDiley [facility] 09-23-2024 13:49-0500Heart rate72 /minMichael NILL 036-5524Jcfnga-JjcgxDiley Ridge Medical Center 09-23-2024 13:49-0500Respiratory rate16 /minMichael NILL [phone]-OtbmvDiley Ridge Medical Center 01-14-2025 13:49-0500Systolic blood xcpmifba811 mm[Hg]Kobe NILL [phone]-EyxdvUniversity Hospitals [facility] [place] 06-23-2024 10:10-0400Body .4 Zack Montiel MD Work Phone: [facility] CenterIscnwrwzjt06-14-5513 10:10-0400Body mass index (BMI) [Ratio]59.16 kg/n0AetplZay Montiel MD Work Phone: [phone] [place], [place] [address]Ntcwvqestq54-82-8351 10:10-0400Body .75 kgZay Montiel MD Work Phone: [phone])[address] [place], [place] [address]Olfbmbkoad93-97-0145 10:10-0400Diastolic blood ajdhkpif54 mm[Hg]Zay Montiel MD Work Phone: 1(706)259-[address] [place], [place] [address]Ovduwmesgn26-44-9796 10:10-0400Heart rate98 /min Zay Montiel MD Work Phone: [phone])[address] [place], [place] [address]Nsswqsgwxr29-31-1499 10:10-0400Respiratory rate18 /minZay Montiel MD Work Phone: [phone] CenterGvbxgleutx17-13-7764 10:10-0400Systolic blood hasavthl070 mm[Hg]Zay Montiel MD Work Phone: 1(322)277-[address] [place], [place] [address]Camlhceeqo55-79-0198 16:01-0400Blood Pressure LocationMichael NILL [phone]-NuiecCoshocton Regional Medical Center09-24-2024 16:01-0400Diastolic blood frzecnuj12 mm[Hg]Kobe NILL [phone]-GqbwbCoshocton Regional Medical Center09-24-2024 16:01-0400Heart rate72 /minMichael NILL [phone]-HigqcCoshocton Regional Medical Center09-24-2024 16:01-0400Respiratory rate16 /minMichael NILL [phone]-GqhqfCoshocton Regional Medical Center09-24-2024 16:01-0400Systolic blood egoacvui975 mm[Hg]Kobe AILYN [phone]-RkxzdCoshocton Regional Medical Center Encounters Encounter DateEncounter TypeCare ProviderFacilityStart: 06-17-2025 End: 70-20-6486jfmsaembfhGnbccbv R NILLFacility:[facility]tart: 06-17-2025 End: 65-00-3418Twmqbwc encounter procedureMichael R NILL [phone]-PclnsDiley Ridge Medical Center Start: 05-12-2025 End: 64-42-6706rgicsoovacZcvpznl R NILLFacility:[facility]tart: 05-12-2025 End: 01-34-7201Aklstmx encounter procedureMichael R NILL [phone]-MgmiuDiley Ridge Medical Center Start: 05-05-2025 End: 38-56-4154Xbpfoa Taryn Montiel MD Work Phone: [facility] [place] EndocrinologyStart: 05-05-2025 End: 23-54-2561Zjshegyola Montiel MD Work Phone: [facility] [place] EndocrinologyStart: 05-05-2025 End: 64-03-1368Kcbeje outpatient visit 40 Carmen Montiel MD Work Phone: [facility] [place] EndocrinologyComment on above: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); Vitamin D deficiency; Encounter for dietary consultation; Insulin long-term use (HCC); Microalbuminuria; Insulin pump in place; Encounter for fitting or adjustment of insulin pump; Primary hypertension ; Type 1 diabetes mellitus with hyperglycemia (HCC)Start: 05-05-2025 End: 08-01-3430liwouedrwzSCNIE F SABBAGHNot AvailableStart: 76-88-4746Pvppgsdor department patient visitDOUGLAS M [facility]tart: 04-21-2025 End: 36-93-6422Hkdvrljud department patient visitDOMILLIE Pace [facility] Hospitaltart: 10-13-1309mxwtgtmkakTdqholinvvy AbdelazizFacility:[facility]tart: 01-30-2025 End: 76-95-8432bkcojpqlerUPXWF F SABBAGHNot AvailableStart: 01-27-2025 End: 15-58-1356wbuhctqhxrEuftiwb R NILLFacility: [facility]Start: 01-27-2025 End: 53-53-2476Jcrjnyz encounter procedureMichael R NILL [phone]-FcdqvUniversity Hospitals Geaug[facility] [place] Start: 12-23-2024 End: 24-00-6562qxmwnevjlrWhcmqpn R NILLFacility:[facility] CenterueStart: 11-25-2024 End: 57-78-3225sfwdmcreuxOXOQO NORTHEIMNot AvailableStart: 10-30-2024 End: 58-23-3633Afyvmt flowsGhassan Montiel MD Work Phone: [facility] ENDOCRINOLOGYStart: 10-30-2024 End: 93-90-4303Ufwdph flowsGhassan Montiel MD Work Phone: [facility] ENDOCRINOLOGYStart: 10-30-2024 End: 87-71-7916Cfbgtcbme encounterZay Montiel MD Work Phone: [facility] ENDOCRINOLOGYStart: 10-30-2024 End: 56-89-9271Ubrpkw outpatient visit 40 minutesZay Montiel MD Work Phone: [facility] ENDOCRINOLOGYComment on above:Type 1 diabetes mellitus with hyperglycemia (HCC) (CMS/HCC) (Primary Dx); Vitamin D deficiency; Encounter for dietary consultation; Insulin long-term use (CMS/HCC); Microalbuminuria; Insulin pump in place; Encounter for fitting or adjustment of insulin pump; Primary hypertension (CMS/HCC); 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 (CMS/HCC)Start: 10-30-2024 End: 06-90-8880pzzhcjjpojISRJTEric Velasco AvailableStart: 10-21-2024 End: 61-29-9266Afgmal flowsYulia Metcalf MD Work Phone: [facility] CI ENTStart: 10-21-2024 End: 96-34-7257Ofzkpa Saman Metcalf MD Work Phone: [facility] CI ENTStart: 10-21-2024 End: 92-10-2203Wxzrcd outpatient visit 15 minutesHilogan Metcalf MD Work Phone: n[facility] CI ENTComment on above:LAD (lymphadenopathy), cervical (Primary Dx)Start: 10-21-2024 End: 60-99-8915twunaozflrZDKHQG H TIMMISNot AvailableStart: 09-23-2024 End: 77-34-9461ttwkaygpvjEbwhfnu R NILLFacility:[facility] CenterevueStart: 09-23-2024 End: 57-83-1802Jzupwky encounter procedureMichael R NILL [phone]-JumdvUniversity Hospitals Geaug[facility] Center [facility] [place] Start: 06-24-2024 End: 55-12-8668vujaksmwypDbrtucl R NILLFacility:[facility] CenterueStart: 06-24-2024 End: 61-49-7364Pdpvbdw encounter procedureMichael R NILL [phone]-Aamgm General Surgery [place] Start: 06-23-2024 End: 15-99-4074Kovyor Taryn Montiel MD Work Phone: [facility] ENDOCRINOLOGYStart: 06-23-2024 End: 85-58-0546Ookybialbertina Montiel MD Work Phone: [facility] ENDOCRINOLOGYStart: 06-23-2024 End: 87-41-6460Vqgosz outpatient visit 40 minutesZay Montiel MD Work Phone: [facility] ENDOCRINOLOGYComment on above:Type 1 diabetes mellitus with hyperglycemia (HCC) ([facility]/HCC) (Primary Dx); Vitamin D deficiency; Encounter for dietary consultation; Insulin long-term use (CMS/HCC); Microalbuminuria; Insulin pump in place; Encounter for fitting or adjustment of insulin pump; Primary hypertension (CMS/HCC); 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 ([facility]/HCC)Start: 06-23-2024 End: 61-37-6773ttbijbsbxpEXKTY F SABBAGHNot AvailableStart: 06-18-2024 End: 16-66-5376Qiy Drop offMichael R NILL [facility] Start: 06-18-2024 End: 37-22-5226eqnchhzcujDeoicev R NILLFacility:FTMCStart: 06-18-2024 End: 32-92-0002Hridxah encounter procedureMichael R NILL [phone]-ZgejyKettering Health Springfieldue Start: 06-03-2024 End: 41-20-6645kmivwyfjhyDampobp HoyFacility:GS BellevueStart: 06-03-2024 End: 78-12-8738Sgczpii encounter procedureMichael R NILL [phone]-MhcicKettering Health Springfieldue Start: 01-17-2024 End: 49-20-9306Yoykpcedb Result EncounterHilalawanda Metcalf MD Work Phone: n[facility] External Department UnsolicitedStart: 01-17-2024 End: 46-54-2485Qqbfmihrq Result EncounterHilogan Metcalf MD Work Phone: [facility] External Department UnsolicitedStart: 01-22-2023 End: 51-95-0970clmzzeknyoDV GEORGE HOY .Facility:T4Qswqg: 01-03-2023 End: 16-19-8249nfywbdudcuDQ GEORGE HOY .Facility:O2Zjoyy: 10-13-2022 End: 60-85-7919cozezwxlwdZE GEORGE HOY .Facility:F6Djhow: 10-06-2022 End: 31-73-1383xdzbhltowwJE GEORGE HOY .Facility:D1Svtcf: 10-06-2022 End: 11-54-2603zftgovwfmsJM GEORGE HOY .Facility:I8Aungn: 04-17-2022 End: 62-23-8985msglkzkvmzIH GEORGE HOY .Facility:U6Xftcw: 03-30-2022 End: 89-32-4843rdhqtrpjwvUH GEORGE HOY .Facility:L8Rwkkc: 03-16-2022 End: 81-13-9227dfvjljlupfZH GEORGE HOY .Facility:A4Bydse: 10-15-2020 End: 17-14-9243pjswbczoufUSJUK EBRAHEIMFacility:[facility] Procedures DateProcedureProcedure DetailPerforming ClinicianStart: 83-69-0616Zjba bld gluc mntr dev cleared fda spec home useZay Montiel MD Work Phone: Start: 32-16-2367Crmzauaq of skin tagMichael NILL Start: 85-07-7754Txvt bld gluc mntr dev cleared fda spec home useAhorville Montiel MD Work Phone: Start: 18-54-4492Wyow bld gluc mntr dev cleared fda spec home useZay Montiel MD Work Phone: Start: 87-81-8027Ucqgxalr of skin tagMichael NILL Start: 14-22-9173Ee soft tissue neck w/contrast Jeronimo Metcalf MD Work Phone: Start: 50-96-1596FgwkrwltqdiMiawfyt NILL Arthroscopic repair of rotator cuffMichael NILL Bladder excisionMichael NILL Comment on above:multipleCesarean sectionMichael NILL Cesarean sectionMichael NILL CholecystectomyMichael NILL Decompression of median nerveMichael NILL Comment on above:rightExcision of vocal cord nodule [place]be NILL Insertion of insulin pumpMichael NILL Plan of Treatment DateCare ActivityDetailAuthorStart: 08-04-2025 End: 10-93-3771Awvsyfq encounter jncmjpyba31/25/2025 10:20 AM EST Office Visit [facility] [address] [place] [address] Zay Montiel MD [address] [place] [address] [facility] EndocrinologyStart: 05-05-2025 End: 48-43-0557Wgzemch encounter jmnxoynkb26/26/2025 10:10 AM EDT Office Visit [facility] [address] [place] [address] Zay Montiel MD [address] [place] [address] 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)ALEX[facility] Jean EndocrinologyComment on above: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)Start: 01-30-2025 End: 21-95-3129Ialozcu encounter bvsskkelx39/23/2025 10:20 AM EDT Office Visit [facility] [address] [place] [phone] Zay Montiel MD [address] [place] [address] [facility]CRINOLOGYStart: 10-30-2024 End: 76-43-8964Jrzuxqv encounter procedureNONORTHEAST MISS[facility] ENDOCRINOLOGYComment on above: ArrivedStart: 10-27-2024 End: 88-10-2543Kqjsshj encounter fdbqlfjsu44/17/2025 10:10 AM EST Office Visit [facility] [address] [place] [address] Zay Montiel MD [address] [place] [address] [facility]CRINOLOGYStart: 10-21-2024 End: 78-75-7931Gzwensa encounter uhqfmzguj87/11/2025 9:50 AM EST Office Visit [facility] [address] [place] [address] Thalia Metcalf MD [address] [place] [address] ArrivedNOMS CI ENTComment on above:ArrivedStart: 06-23-2024 End: 16-02-2940Lvzchkz encounter geuhkqqrn95/14/2024 10:40 AM EDT Office Visit [facility] [address] [place] [address] Zay Montiel MD [address] [place] [address] Type 1 diabetes mellitus with hyperglycemia (HCC) ([facility] ENDOCRINOLOGYComment on above:Type 1 diabetes mellitus with hyperglycemia (HCC) ([facility]) Payers DatePayer CategoryPayerPolicy [id number]-ghy [id number] 2021Private Health [id number] 2020Medicare (Managed Care) [facility] MEDICARE ADVANTAGE .[id number] 2018Medicaid [id number] 2.0.1.682592.3.57[id number] 2.0.1.813953.3.57[id number] 2.840.1.117257.3.57[id number] 2.0.1.336404.3.57[id number] 2.160.1.339304.3.57[id number] 2.0.1.002236.3.579.[id number] 2.16840.1.257298.3.57[id number] 2.160.1.950657.3.57[id number] 2.840.1.918764.3.579.2.79823-65-9802Vhkfglx0756401 2.840.1.182302.3.57[id number] 2.840.1.732295.3.57[id number] 2.840.1.146310.3.57[id number] 2.0.1.721820.3.57[id number] 2.840.1.238390.3.57[id number] 2.0.1.209485.3.57[id number] 2.840.1.764183.3.579.2.90[id number] 2..1.541685.3.579.2.757050-19-8278Zvsdxjg3154816 2.840.1.502579.3.579.2.157666-92-9083Frsvvjx9830819 2..1.306135.3.579.2.227629-89-5720Ktqoglx5216491 2.840.1.589513.3.579.2.405719-59-2669Iivxsjs9603266 2.0.1.496615.3.579.2.846070-20-5318Sqcbzhx9396507 2.840.1.192125.3.579.2.456235-48-8888Gjnkpyk98774926 2.840.1.618187.3.579.2.39751-74-5722Zifxwea73994250 2..840.1.074170.3.579.2.[id number] 2.16.840.1.637688.3.57[id number] 2.0.1.605018.3.579.2.27968-75-8699Gzbbggi78689066 2.0.1.002421.3.579.2.727 [id number] 1960Private Health [id number] 2.16.840.1.512229.3.579.2.531 Social History DateTypeDetailFacilityStart: 12-18-2023 End: 12-88-8990Kntlhvs smoking statusEx-smoker (finding)[facility]ueStart: 27-80-2155Jvprnur smoking statusNeverKettering Health SpringfieldueStart: 01-23-2024 End: 91-18-5898Uie Assigned At BirthFeKettering Memorial Hospitaltart: 09-10-2007 End: 88-65-4768Lnbxaok of tobacco useCurrent smokerNOMS HealthcareStart: 09-10-2005 End: 85-95-7934Fmixlsq of tobacco useCigarette SmokerNOMS HealthcareStart: 12-18-2023 End: 57-13-2510Nalkzhf use and exposureSmokeless tobacco non-userNOMS Healthcare Start: 01-17-2024 End: 13-03-3039Iacfnymgb beverage intakeEx-drinker (finding)[facility] Start: 01-23-2024 End: 11-21-3277Sjvlajw of Social functionNOMS HealthcareStart: 17-32-0072Qok assigned at birthNot on fileNOMS HealthcareSexual OrientationDiley Ridge Medical Center Start: 33-98-3768AdoBujllx (finding)[facility] Medical Equipment Procedure CodeEquipment CodeEquipment Original TextEquipment IdentifierDates [id number]: 06-10-2024 End: 98-62-4456DBFS BLOOD SUGAR SIX TIMES [id number]: 20-26-6278SUGB BLOOD SUGAR SIX TIMES [id number]: 01-30-2025 End: 47-87-9583NFQN BLOOD SUGAR SIX TIMES [id number]: 05-05-2025 Functional Status MbmrQbbswivciqMjrhpzYzkydiia40-18-0111Exzlpjlfdl StatusN/[facility] Surgery Omugqxmo39-33-1263Fobphqrqpe StatusN/[facility] Surgery Tcnaumph41-41-7882Jwhfkgrtmd StatusN/[facility] Clinical Notes 04-17-2022 to 04-10-2025 Note Date & QqvrDlizMmxgrikl60-14-8778 History of Present illness Narrative* Zay Montiel MD - 05/05/2025 10:10 AM EDT Yanick Cortez is a 44 y.o. female No ref. provider found presents with chief complaint of No chief complaint on file. IM : 04/2025 Follow-up visit 05/05/2025 A1c 7.4 blood sugar 304 CGM 20-40 8-38 average 146 and using basal 89, bolus 11 percent, total daily dose 57, insulin pump U 500 carb ratio 1:5, sensitivity 1:20 a.m. and she has multiple lows, basal rate 12:00 a.m. 1 units, 8:00 a.m. 2.8, 10:00 p.m. 2.5. 01/2025 History of Present Illness The patient is a 44-year-old female who presents for follow-up of type 1 diabetes. She reports no significant changes in her condition since the last consultation. She is currently on an insulin pump regimen, utilizing U-500 insulin. Her basal rate is set at 64 units, with a bolus of 36 units, culminating in a total daily dose of 78 units. The insulin delivery is scheduled at 12 AM (1 unit), 8 AM (2.8 units per hour), and 10 PM (2.5 units per hour). Her carbohydrate to insulin ratio is 1:5, and her insulin sensitivity factor is 1:20. Results Laboratory Studies A1c is 8.3. Blood sugar is 325. Interim History: 10/2024 Follow-up visit of 10/30/2024 [...] readings . wants to check her for [place]'s disease since her mother had it. Interim [...] 71, BG 207, on metformin 1000 mg bid.lab on 09/2022 TC 156, HDL 32, TG 261, LDL 72, AL/CR 13, VIT D 36. Interim History: 07/2022. Follow-up visit of 07/24/2022 for type 1 diabetes. she is on U-500 and sensor pump. 12 AM 1.6, 8 AM2, 10 PM 1.8 ICR 1:7, ISS: 1:20, avg 3.3, avg 240 , 70/30 %, on metformin 1000 mg bid, back on 02/2018 c peptide <0.1 Interim History: 04/2022. Follow-up visit of 04/10/2022 for type 1 diabetes. Now, she is on U-500 and sensor pump. 12 AM 1.6, 8AM 2, 10 PM 1.8 ICR 1:7, ISS: [...] AM 2.2; 6 PM 2.4; 10 PM 2;ICR 1:4; ISS 1:25. 30-day average bolus 43, [...] citalopram (CELEXA) 40 mg, Every 24 hours clopidogrel (PLAVIX) 75 mg, Oral, Daily Continuous Glucose Home Visitor (Dexcom G7 Home Visitor) device 1 kit, Does not apply, Continuous Continuous Glucose Sensor (Dexcom G7 Sensor) misc 1 kit, Does not apply, Every 10 days famotidine (PEPCID) 20 mg, Daily fluticasone-salmeterol (Advair) 230-21 MCG/ACT inhaler 2 puffs, 2 times daily RT furosemide (Lasix) 80 MG tablet 1 tablet, Daily glucose blood (Contour Next Test) test strip TEST BLOOD SUGAR SIX TIMES DAILY glucose blood test strip Insulin Disposable Pump (Omnipod 5 GtoT3B0 Intro Gen 5) kit USE DIRECTED Insulin Disposable Pump (Omnipod 5 NoaR7M5 Pods Gen 5) misc 1 Bar, Subcutaneous, Every 48 hours Insulin Disposable Pump (Omnipod DASH Pods, [...] times daily risperiDONE (RISPERDAL) 4 mg, Daily sacubitril-valsartan (Entresto) 49-51 MG tablet 1 tablet, Oral, 2 times daily simvastatin (ZOCOR) 20 mg, Nightly Vitamin D, Ergocalciferol, 07193 units capsule 1 tablet, Weekly ALLERGIES: Allergies Allergen Reactions Codeine Hydrocodone Throat swelling, vomiting Morphine GI intolerance vomiting Oxcarbazepine Other Reaction(s): tightness in chest Penicillin G Hives Penicillins Valproic Acid Other Reaction(s): Trouble Breathing Lamotrigine Rash Past Medical History: Diagnosis Date Anxiety Congestive heart failure (CHF) ([facility]) Essential (primary) hypertension Hypothyroid custodial (current) use of insulin ([facility]) Migraine Presence of insulin pump (external) (internal) Proteinuria, unspecified Seizures ([facility]) Sleep apnea Torn meniscus 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 No heart burn, liver or gallbladderdisease; no rectal bleeding or pain : No urinary pain , frequency or odor. MUSCULOSKELETAL: No muscle pain or cramps; no extremity weakness.No joint pain, stiffness, swellingor limitation of movement NEUROLOGY: No H/O seizures, stroke or fainting. No weakness, tremors. Hematology: No bleeding problems or excessive bruising ENDOCRINE: No increase in hunger, thirst or urination; admits compliance to medical management plan Feet: numbness tingling yes , ulcers or skin break no Lab Results Component Value Date HGBA1C 7.5 05/05/2025 HGBA1C 8.3 01/30/2025 HGBA1C 8.1 10/30/2024 Lab Results Component Value Date GLU 309 05/05/2025 GLU 325 01/30/2025 GLU 241 10/30/2024 01/23/2024 9:36 AM 02/25/2024 9:41 AM 06/23/2024 10:10 AM 10/21/2024 9:27 AM 10/30/2024 10:00 AM 01/30/2025 10:20 AM 05/05/2025 9:42 AM Vitals BMI 39.49 kg/m2 40.27 kg/m2 59.16 kg/m2 42.28 kg/m2 40.81 kg/m2 41.13 kg/m2 41.1 kg/m2 BSA (m2) 2.24 m2 2.25 m2 2.75 m2 2.33 m2 2.29 m2 2.3 m2 2.27 m2 Systolic 140 122 160 147 122 140 114 Diastolic 68 60 60 63 68 62 62 Heart Rate 89 98 82 73 80 83 SpO2 96 % 97 % 96 % 96 % Resp 18 18 18 18 18 Height (in) 5' 5.5 5' 5 5' 5.5 5' 5.5 5' 5.5 5' 5.5 5' 5 Weight (lb) 241 242 361 258 249 251 247 Visit Report Report Report Report Report Report Report ASSESSMENT AND PLAN: Assessment/Plan Diagnoses and all orders for this visit: 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) - POCT glucose manually resulted - POCT glycosylated hemoglobin (Hb A1C) docked device - insulin regular (HumuLIN R) 500 UNIT/ML CONCENTRATED injection; USE 450 units TOTAL daily per insulin pump - glucose blood (Contour Next Test) test strip; TEST BLOOD SUGAR SIX TIMES DAILY Vitamin D deficiency Encounter for dietary consultation Insulin long-term use (HCC) Microalbuminuria Insulin pump in place Encounter for fitting or adjustment of insulin pump Primary hypertension Type 1 diabetes mellitus with hyperglycemia (HCC) - metFORMIN (Glucophage) 1000 MG tablet; Take 1 tablet (1,000 mg) by mouth in the morning and 1 tablet (1,000 mg) in the evening. Take with meals. - Insulin Disposable Pump (Omnipod 5 CdcQ8G0 Pods Gen 5) misc; Inject 1 Bar under the skin every other day Follow up in about 3 months (around 08/05/2025). documented in this encounterSaint [facility] [id number] Telephone encounter Note* Telephone Encounter - Jose Garcia - 10/30/2024 11:18 AM EST Please resend Dexcom G7 and kit to [email or web address] please and thank you! Omnipod 5 pods to [email or web address] as well. Thanks! [facility] [id number] Miscellaneous Notes* Telephone Encounter - Jose Garcia - 10/30/2024 11:18 AM EST Please resend Dexcom G7 and kit to [facility] please and thank you! Omnipod 5 pods to [facility] as well. Thanks! documented in this encounterSaint Francis Medical [id number] History of Present illness Narrative* Zay Montiel MD - 10/30/2024 9:50 AM EST Yanick Cortez is a 44 y.o. female Zay Montiel MD presents with chief complaint of Diabetes [...] readings . wants to check her for [place]'s disease since her mother had it. Interim [...] 71, BG 207, on metformin 1000 mg bid.lab on 09/2022 TC 156, HDL 32, TG 261, LDL 72, AL/CR 13, VIT D 36. Interim History: 07/2022. Follow-up visit of 07/24/2022 for type 1 diabetes. she is on U-500 and sensor pump. 12 AM 1.6, 8 AM2, 10 PM 1.8 ICR 1:7, ISS: 1:20, avg 3.3, avg 240 , 70/30 %, on metformin 1000 mg bid, back on 02/2018 c peptide <0.1 Interim History: 04/2022. Follow-up visit of 04/10/2022 for type 1 diabetes. Now, she is on U-500 and sensor pump. 12 AM 1.6, 8AM 2, 10 PM 1.8 ICR 1:7, ISS: [...] AM 2.2; 6 PM 2.4; 10 PM 2;ICR 1:4; ISS 1:25. 30-day average bolus 43, [...] 40 mg, Every 24 hours Continuous Glucose Home Visitor (Dexcom G7 Home Visitor) device 1 kit, Does not apply, Continuous [...] (ZOCOR) 20 mg, Nightly Vitamin D, Ergocalciferol, 55219 units capsule 1 tablet, Weekly ALLERGIES: Allergies Allergen Reactions Codeine Hydrocodone Throat swelling, vomiting Morphine GI intolerance vomiting Oxcarbazepine Other Reaction(s): tightness in chest Penicillin G Hives Penicillins Valproic Acid Other Reaction(s): Trouble Breathing Lamotrigine Rash Past Medical History: Diagnosis Date Anxiety Congestive heart failure (CHF) (CMS/HCC) Essential (primary) hypertension (CMS/HCC) Hypothyroid (CMS/HCC) 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 No heart burn, liver or gallbladderdisease; no rectal bleeding or pain : No urinary pain , frequency or odor. MUSCULOSKELETAL: No muscle pain or cramps; no extremity weakness.No joint pain, stiffness, swellingor limitation of movement NEUROLOGY: No H/O seizures, [...] Type 1 diabetes mellitus with hyperglycemia (HCC) ([facility]/HCC) - POCT glycosylated hemoglobin (Hb A1C) docked [...] Encounter for dietary consultation Insulin long-term use ([facility]) Microalbuminuria Insulin pump in place Encounter for fitting or adjustment of insulin pump Primary hypertension ([facility]) 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 ([facility]) - insulin regular (HumuLIN R) 500 UNIT/ML CONCENTRATED injection; USE 450 units TOTAL daily per insulin pump Follow up in about 3 months (around 01/27/2025). documented in this encounterSaint Francis Medical [id number] History of Present illness Narrative* Thalia Metcalf MD - 10/21/2024 9:50 AM EST Subjective Patient ID: Yanick Cortez is a 44 y.o. female who presents for Mass (CT Neck H 09/27/24) Pt reports she has tomas cervical swelling and pressure. Pt states no tx so far. US ST neck and CT neck show no abnormality per radiology. CT reviewed and no pathologic LAD evident. Dr Carlson's note indicates pt requested referral for LN removal Family History Problem Relation Name Age of Onset Heart failure Father Cancer Father Hypertension Father Active Ambulatory Problems Diagnosis Date Noted Bipolar I disorder ([facility]) 08/20/2012 Chronic hoarseness 12/18/2023 Disorder of nervous 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 2 diabetes mellitus ([facility]) 08/19/2012 Dysthymia ([facility]) 08/19/2012 Epilepsy ([facility]) 08/19/2012 Insomnia 08/19/2012 Laryngopharyngeal reflux 12/18/2023 Mass of head 12/18/2023 Type 2 diabetes mellitus without complication ([facility]) 08/19/2012 Sleep apnea 12/18/2023 Sinusitis, chronic 12/18/2023 LAD (lymphadenopathy) of left cervical region 12/24/2023 Abdominal bloating 01/17/2024 Anxiety 01/17/2024 Benign neoplasm of transverse colon 01/17/2024 Diastasis of rectus abdominis 01/17/2024 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 01/17/2024 Epidermoid cyst of face 01/17/2024 Epigastric pain 01/17/2024 Gastroesophageal reflux disease 01/17/2024 Family history of malignant neoplasm of colon 01/17/2024 Hypertension ([facility]) 01/17/2024 Irritable bowel syndrome 01/17/2024 custodial current use of insulin ([facility]) 01/17/2024 Migraine headache ([facility]) 01/17/2024 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 1 diabetes mellitus ([facility]) 01/17/2024 Nausea 01/17/2024 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 ([facility]) 01/17/2024 Obesity with body mass index 30 or greater 01/17/2024 Pain in joint of right shoulder 08/02/2020 Pain in right arm 08/02/2020 Pain in right knee 08/02/2020 Type 1 diabetes mellitus ([facility]/HCC) 01/17/2024 Seizure disorder ([facility]) 01/17/2024 Resolved Ambulatory Problems Diagnosis Date Noted Chronic laryngitis 12/18/2023 Past Medical History: Diagnosis Date Congestive heart failure (CHF) ([facility]) Essential (primary) hypertension ([facility]) Hypothyroid ([facility]) custodial (current) use of insulin (CMS/HCC) Migraine (CMS/HCC) Presence of insulin pump (external) (internal) Proteinuria, unspecified Seizures (CMS/HCC) Torn meniscus Type 1 diabetes mellitus with [...] day at the same time Continuous Glucose Home Visitor (Dexcom G7 Home Visitor) device 1 kit continuously 1 each 1 Continuous Glucose Sensor (Dexcom G7 Sensor) misc 1 kit Every 10 (ten) days 9 each 1 famotidine (Pepcid) 20 MG tablet Take 20 mg by mouth Daily fluticasone-salmeterol (Advair) 230-21 MCG/ACT inhaler Inhale 2 puffs in the morning and 2 puffs before bedtime. Rinse mouth with water after use to reduce aftertaste and incidence of candidiasis. Donot swallow.. furosemide (Lasix) 80 MG tablet Take [...] by mouth at bedtime Vitamin D, Ergocalciferol, 37877 units capsule Take 1 tablet by mouth [...] exam. No tx needed documented in this encounterSaint Francis Medical [id number] NoteGeneral Surgery Office/Clinic Note Chief Complaint consultation for positive occult stool HPI Staff 44 year old female presents on consultation from Dr. Carlson for positive occult stool. Reports one dayepisode of abdominal pain and dark stools. Denies [...] swallowing difficulties, no hearing loss, no ear infection(s),no nose bleeds. Cardiovascular: normal blood pressure, no [...] hysterectomy (corpus and cervix) (more content not included)...[facility]idence HospitalComment on above:Result Comment: Electronically Signed By: AILYN CHENG, Kobe Radford\Date and Time Signed: 09/23/24 15:16 [id number] History of Present illness Narrative* Zay Montiel MD - 06/23/2024 10:40 AM EDT Yanick Cortez is a 43 y.o. female Zay Montiel MD presents with chief complaint of Diabetes [...] readings . wants to check her for [place]'s disease since her mother had it. Interim [...] 71, BG 207, on metformin 1000 mg bid.lab on 09/2022 TC 156, HDL 32, TG 261, LDL 72, AL/CR 13, VIT D 36. Interim History: 07/2022. Follow-up visit of 07/24/2022 for type 1 diabetes. she is on U-500 and sensor pump. 12 AM 1.6, 8 AM2, 10 PM 1.8 ICR 1:7, ISS: 1:20, avg 3.3, avg 240 , 70/30 %, on metformin 1000 mg bid, back on 02/2018 c peptide <0.1 Interim History: 04/2022. Follow-up visit of 04/10/2022 for type 1 diabetes. Now, she is on U-500 and sensor pump. 12 AM 1.6, 8AM 2, 10 PM 1.8 ICR 1:7, ISS: [...] AM 2.2; 6 PM 2.4; 10 PM 2;ICR 1:4; ISS 1:25. 30-day average bolus 43, [...] (ZOCOR) 20 mg, Nightly Vitamin D, Ergocalciferol, 78683 units capsule 1 tablet, Weekly ALLERGIES: Allergies Allergen Reactions Codeine Hydrocodone Throat swelling, vomiting Morphine GI intolerance vomiting Oxcarbazepine Other Reaction(s): tightness in chest Penicillin G Hives Penicillins Valproic Acid Other Reaction(s): Trouble Breathing Lamotrigine Rash Past Medical History: Diagnosis Date Anxiety Congestive heart failure (CHF) ([facility]) Essential (primary) hypertension ([facility]/HCC) Hypothyroid ([facility]) custodial (current) use of insulin ([facility]) Migraine ([facility]) Presence of insulin pump (external) (internal) Proteinuria, unspecified Seizures ([facility]) Sleep apnea Torn meniscus 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 ([facility]) Vitamin D deficiency, unspecified Past [...] recent change. No heart burn, liver or gallbladderdisease; no rectal bleeding or pain : No urinary pain , frequency or odor. MUSCULOSKELETAL: No muscle pain or cramps; no extremity weakness.No joint pain, stiffness, swellingor limitation of movement NEUROLOGY: No H/O seizures, [...] Type 1 diabetes mellitus with hyperglycemia (HCC) ([facility]/HCC) - POCT glucose manually resulted - POCT [...] Encounter for dietary consultation Insulin long-term use (CMS/[facility]) Microalbuminuria Insulin pump in place Encounter for fitting or adjustment of insulin pump Primary hypertension ([facility]/HCC) 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 ([facility]/HCC) - insulin regular (HumuLIN R) 500 UNIT/ML CONCENTRATED injection; USE 450 units TOTAL daily per insulin pump Follow up in about 4 months (around 10/24/2024). documented in this encounterNOMS [id number] NoteGeneral Surgery Office/Clinic Note Chief Complaint consultation for skin tags and skin lesion HPI Staff 43 year old female presents on consultation from Dr. Carlson for skin lesion left hand and multiple skin tags. History of Present Illness 43 yo female with h/o type 1 DM, htn, hypothyroidism, migraines, DVT, neuropathy, seizure d/o, bipolar d/o, cervical disc disease, essential tremor, referred for skin tags, and skin lesion left hand;patient reports long h/o raised, irregular lesion dorsum [...] swallowing difficulties, no hearing loss, no ear infection(s),no nose bleeds. Cardiovascular: normal blood pressure, no [...] potassium chloride 10 mEq (more content not included)...[facility] HospitalComment on above:Result Comment: Electronically Signed By: AILYN CHENG, Kobe Barnes.dimitrios\Date and Time Signed: 06/03/24 16:38 [id number] NoteCARDIAC STRESS TEST Requesting Physician: Procedure Date:04/17/2022 TREADMILL [...] to achieve 85% of maximum predicted heart rate.[facility] Future Appointments Appointment Date:06/18/2024 03:00:00 PM Scheduled Provider:Kobe ROBERTSON MD Location:[facility] Appointment Type: [facility] 30 [facility] Evaluation + Plan note Future Appointments Appointment Date:06/24/2024 02:00:00 PM Scheduled Provider:Kobe ROBERTSON MD Location:[facility] Appointment Type: Established 15 [facility] Evaluation + Plan note Future Appointments Appointment Date:03/24/2025 01:40:00 PM Scheduled Provider:Kobe ROBERTSON MD Location:[facility] Appointment Type: Procedure 30 [facility] Evaluation + Plan note Future Appointments Appointment Date:06/17/2025 01:40:00 PM Scheduled Provider:Kobe ROBERTSON MD Location:[facility] Appointment Type: Procedure 30 [facility] evaluation note* Diagnosis Type 1 diabetes mellitus with hyperglycemia (HCC) ([facility])- Primary Vitamin D deficiency Encounter for dietary consultation Insulin long-term use ([facility]) Encounter for long-term (current) use of insulin Microalbuminuria Proteinuria Insulin pump in place Insulin pump status Encounter for fitting or adjustment of insulin pump Fitting and adjustment of insulin pump Primary hypertension ([facility]) Unspecified essential hypertension 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 ([facility]) documented in this encounter [facility]* Diagnosis LAD (lymphadenopathy), cervical- Primary documented in this encounter [facility]* Diagnosis Type 1 diabetes mellitus with hyperglycemia (HCC) ([facility])- Primary Vitamin D deficiency Encounter for dietary consultation Insulin long-term use ([facility]) Encounter for long-term (current) use of insulin Microalbuminuria Proteinuria Insulin pump in place Insulin pump status Encounter for fitting or adjustment of insulin pump Fitting and adjustment of insulin pump Primary hypertension (CMS/HCC) Unspecified essential hypertension 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 (CMS/HCC) documented in this encounter [facility]* Diagnosis 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)- Primary Vitamin D deficiency Encounter for dietary consultation Insulin long-term use (HCC) Encounter for long-term (current) use of insulin Microalbuminuria Proteinuria Insulin pump in place Insulin pump status Encounter for fitting or adjustment of insulin pump Fitting and adjustment of insulin pump Primary hypertension Unspecified essential hypertension Type 1 diabetes mellitus with hyperglycemia (HCC) documented in this encounter [facility] HealthcareHospital course Narrative No data available for this section [facility] Hospital Discharge instructions No data available for this section [facility] Progress note No data available for this section [facility] Summary Purpose Family History No [...] and content) DATE CREATED AUTHOR 10/02/2021 [facility] DATE CREATED AUTHOR AUTHOR'S ORGANIZ ATION 01/23/2023 [facility] DATE CREATED AUTHOR AUTHOR'S ORGANIZ ATION 06/27/2024 [facility] DATE CREATED AUTHOR AUTHOR'S ORGANIZ ATION 09/03/2024 [facility] DATE CREATED AUTHOR AUTHOR'S ORGANIZ ATION 02/06/2025 [facility] DATE CREATED AUTHOR AUTHOR'S ORGANIZ ATION 04/22/2025 [facility] DATE CREATED AUTHOR AUTHOR'S ORGANIZ ATION 05/06/2025 [facility] DATE CREATED AUTHOR AUTHOR'S ORGANIZ ATION 06/20/2025 [facility] Patient Care team informatio n (unrecognized section and content) Team MemberRelationshipSpecialtyStart DateEnd Date George Carlson MD [address] [place] [facility] [place] [address] PCP - GeneralFamily Medicine12/18/23Team MemberRelationshipSpecialtyStart DateEnd Date George Carlson MD [address] [place] [facility] [place] [address] PCP - GeneralFamily Medicine12/18/23Team MemberRelationshipSpecialtyStart DateEnd Date George Carlson MD [address] [place] [facility] [place] [address] PCP - GeneralFamily Medicine12/18/23Team MemberRelationshipSpecialtyStart DateEnd Date George Carlson MD [address] [place] [facility] [place] [address] PCP - GeneralFamily Medicine12/18/23Team MemberRelationshipSpecialtyStart DateEnd Date George Carlson MD [address] [place] [facility] [place] [address] PCP - GeneralFamily Medicine12/18/23Team MemberRelationshipSpecialtyStart DateEnd Date George Carlson MD [address] [place] [facility] [place] [address] PCP - GeneralFamily Medicine12/18/23Team MemberRelationshipSpecialtyStart DateEnd Date George Carlson MD PCP - [facility]12/18/23Te MemberRelationshipSpecialtyStart DateEnd Date George Carlson MD PCP - [facility]12/18/23Te MemberRelationshipSpecialtyStart DateEnd Date George Carlson MD PCP - [facility]12/18/23 Reason for Visit (unrecogniz ed section and content) ReasonCommentsDiabetesFollow-upReasonCommentsMassCT Neck [facility] 09/27/24Reason CommentsDiabetes FOR RECORDS PERTAINING TO PATIENTS WHO ARE [...] BE BASED ON THE PRIMARY CLINICAL RECORDS. [facility] [employer] [facility]. provides no warranty or guarantee of the accuracy or completeness of information in this document.
== END 2025-08-04 08:34 | disposition home or self-care (01) ==
LOC: MRI 08:33
PROVIDERS: PCP Family Medicine; Visit Provider Family Medicine
DX: I63.9 Cerebral infarction, unspecified (principal)
CPT/HCPCS: 70551